=== PATIENT | male | born 1950 | race Caucasian/White ===

== ENCOUNTER 2016-12-10 13:46 | Inpatient (IN) | payer OTHER ==
[2016-12-10] MEDS ORDERED: HYDROcodone/APAP 5-325MG 1 EACH TAB PO PRN (19:02)
[2016-12-10] MEDS ORDERED: LORazepam 2 MG/ML SYRINGE IV PRN (19:03)
[2016-12-10] MEDS ORDERED: IPRATROPIUM-ALBUTEROL 3 ML NEB INHALATION SCH (20:00)
[2016-12-10 21:32] LABS: Glucose,Whole Blood 132 mg/dL (75-99)
[2016-12-10] MEDS: methylPREDNISolone SOD SUCCI 40 MG/ML 1 ML VIAL IV SCH ×2 (21:48→23:24)
[2016-12-10] MEDS: SODIUM CHLORIDE 0.9% 1,000 ML IV SCH (21:48)
[2016-12-10] MEDS: NITROGLYCERIN OINT 1 INCH/GM PACKET TOPICAL SCH ×2 (21:48→23:25)
[2016-12-10] MEDS: METOPROLOL TARTRATE 50 MG TAB PO SCH (21:49)
[2016-12-10] MEDS: ATORVASTATIN 80 MG TAB PO SCH (21:49)
[2016-12-11 06:18] LABS: Glucose,Whole Blood 116 mg/dL (75-99)
[2016-12-11] MEDS: BUDESONIDE 0.5 MG/2 ML NEBU INHALATION SCH ×3 (07:02→20:39)
[2016-12-11] MEDS: NITROGLYCERIN OINT 1 INCH/GM PACKET TOPICAL SCH ×4 (07:03→21:27)
[2016-12-11] MEDS: methylPREDNISolone SOD SUCCI 40 MG/ML 1 ML VIAL IV SCH ×4 (07:03→21:27)
[2016-12-11] MEDS: PANTOPRAZOLE 40 MG TABLET PO SCH (07:05)
[2016-12-11] MEDS: METOPROLOL TARTRATE 50 MG TAB PO SCH ×2 (08:02→21:26)
[2016-12-11] MEDS: NICOTINE 21MG/24HR PATCH TRANSDERM SCH (08:02)
[2016-12-11] MEDS: ASPIRIN 325 MG TAB PO SCH (08:02)
[2016-12-11] MEDS: FUROSEMIDE 20 MG TAB PO SCH (08:53)
--- NOTE | 2016-12-11 09:11 | XR ---
EXAMINATION TYPE: XR chest 2V DATE OF EXAM: 12/11/2016 9:01 AM COMPARISON: NONE HISTORY: Shortness of breath TECHNIQUE: Frontal and lateral views of the chest are obtained. FINDINGS: Scattered senescent parenchymal changes noted. Hyperinflation compatible with COPD. No evidence for infiltrate. No evidence for atelectasis. Heart size is stable. Mediastinal structures are stable and grossly unremarkable. No evidence for hilar prominence. Degenerative changes dorsal spine. IMPRESSION: 1. No evidence for acute pulmonary disease.
--- NOTE | 2016-12-11 11:02 | P.PN ---
Subjective Principal diagnosis: Non-STEMI This is a 66-year-old gentleman who presented to [facility] with a non-ST elevation myocardial infarction. He was seen in consultation there by Dr. Regalado, cardiac catheterization was performed there yesterday. Cardiac catheterization revealed two-vessel coronary artery disease and patient was transferred here, referred for coronary artery bypass grafting surgery. Clonidine level at [facility] went up to 9.4. Echocardiogram with Doppler study was performed there which revealed an ejection fraction of 45-50% with severe hypokinesia in the basal inferior wall region. He was seen and examined this morning, denies any chest pain or difficulty in breathing. He has not yet been evaluated by cardiothoracic surgery. Blood pressure 116/50, heart rate in the 60s, 94% on room air. Left groin soft no evidence of any hematoma. Objective - Vital Signs Vital signs: Vital Signs Temp 97.7 F 12/11/16 08:00 Pulse 83 12/11/16 08:00 Resp 16 12/11/16 08:00 BP 140/83 12/11/16 08:00 Pulse Ox 92 L 12/11/16 08:00 Intake & Output 12/10/16 12/11/16 12/11/16 18:59 06:59 18:59 Intake Total 240 Output Total 500 Balance -260 Weight 93 kg 92.1 kg Intake: Oral 240 Output: Urine 500 Other: Voiding Method Urinal Urinal # Voids 2 - Exam PHYSICAL EXAMINATION: HEENT: [Head is atraumatic, normocephalic. Pupils equal, round. Neck is supple. There is no elevated jugular venous pressure.] HEART EXAMINATION: [Heart S1, S2 normal. No murmur or gallop heard.] CHEST EXAMINATION: Lungs reveal some coarse wheezing bilaterally. ABDOMEN: [ Soft, nontender. Bowel sounds are heard. No organomegaly noted]. EXTREMITIES:[ 2+ peripheral pulses with no evidence of peripheral edema and no calf tenderness noted]. Left groin soft, no evidence of any hematoma. NEUROLOGIC [patient is awake, alert and oriented -3.] . - Labs Labs: Abnormal Lab Results - Last 24 Hours (Table) 12/10/16 12/11/16 Range/Units 21:29 06:17 POC Glucose (mg/dL) 132 H 116 H (75-99) mg/dL Assessment and Plan (1) NSTEMI (non-ST elevated myocardial infarction) Status: Acute (2) S/P cardiac cath Status: Acute (3) COPD (chronic obstructive pulmonary disease) Status: Acute (4) Hyperlipemia Status: Acute Plan: Patient is currently on aspirin, Lipitor 80, Lasix 20 mg daily, metoprolol tartrate 50 mg one tablet by mouth twice a day, nicotine patch, Nitropaste, BUN 723, creatinine 1.1. Potassium 4.6 yesterday. We will add a small dose of RIGOBERTO inhibitor to the patient's medication regime. She will be seen in consultation today by cardiothoracic surgery, will need to undergo coronary artery bypass grafting surgery. We will continue to follow along with you. DNP note has been reviewed, I agree with a documented findings and plan of care. Patient was seen and examined.
[2016-12-11] MEDS ORDERED: MD COMMUNICATION TO PHARMACY 1 EACH MISC PO ONE ×4 (11:49)
--- NOTE | 2016-12-11 12:01 | P.GSCN ---
History of Present Illness Consult date: 12/11/16 Reason for Consult: Coronary artery disease History of present illness: The patient is a 66-year-old male with a long-standing history of tobacco use, who does not see a doctor in a regular basis, who presented to [facility] with chest pain and shortness of breath. He was diagnosed with a non-ST elevation infarction. Cardiac catheterization was performed and revealed multivessel coronary artery disease. He was transferred to [facility] for consideration of coronary artery bypass grafting. At the time my examination, the patient was resting comfortably and denied chest pain or shortness of breath. Review of Systems All systems: negative - Cardiovascular Reports chest pain, Reports dyspnea on exertion - Respiratory Reports cough with sputum Past Medical History Past Medical History: Coronary Artery Disease (CAD), COPD, Hyperlipidemia, Hypertension, Pneumonia Additional Past Medical History / Comment(s): 12-10-16 transfer from [facility], had positive troponins, went for heart cath and transfered here for cardiovascular eval. '"tremors", emphysema, has home 02 2 liters uses as needed History of Any Multi-Drug Resistant Organisms: None Reported Past Surgical History: Heart Catheterization, Hernia Repair, Tonsillectomy Additional Past Surgical History / Comment(s): rt inguinal hernia repair Past Anesthesia/Blood Transfusion Reactions: No Reported Reaction Additional Past Anesthesia/Blood Transfusion Reaction / Comm: stated never had any blood transfusions Past Psychological History: No Psychological Hx Reported Smoking Status: Current every day smoker Past Alcohol Use History: None Reported Past Drug Use History: Marijuana Additional Drug Use History / Comment(s): uses [facility] 3-4 times per week - Past Family History Mother Family Medical History: CVA/TIA Father Additional Family Medical History / Comment(s): aaa repair Medications and Allergies Home Medications Medication Instructions Recorded Confirmed Type No Known Home Medications [No 12/10/16 12/10/16 History Known Home Medications] Allergies Allergy/AdvReac Type Severity Reaction Status Date / Time No Known Allergies Allergy Verified 12/10/16 17:59 Surgical - Exam Vital Signs Temp Pulse Resp BP Pulse Ox 98.1 F 78 16 135/68 92 L 12/10/16 16:56 12/10/16 16:56 12/10/16 16:56 12/10/16 16:56 12/10/16 16:56 - General well developed, well nourished, no distress - Eyes normal ocular movement - Respiratory normal respiratory effort, clear to auscultation - Cardiovascular Rhythm: regular - Abdomen Abdomen: soft, non tender - Integumentary no rash - Psychiatric oriented to time, oriented to person, oriented to place, speech is normal Results - Labs Abnormal Lab Results - Last 24 Hours (Table) 12/10/16 12/11/16 Range/Units 21:29 06:17 POC Glucose (mg/dL) 132 H 116 H (75-99) mg/dL - Imaging Chest x-ray: report reviewed, image reviewed Assessment and Plan (1) Coronary artery disease Status: Acute (2) NSTEMI (non-ST elevated myocardial infarction) Status: Acute Plan: The patient's cardiac catheterization performed at [facility] was personally reviewed. He has a 90% proximal left anterior descending artery stenosis along with a chronically right coronary artery with distal collateralization. A coronary artery bypass is recommended. The risks, benefits, and alternatives to this procedure were discussed with the patient. All of his questions were answered. We will proceed with our standard preoperative workup. The patient has a significant pulmonary history and he was started on steroids by Dr. Bhatia secondary to COPD. We will obtain a full set of pulmonary function tests given his tobacco use, history of pneumonia, COPD, and occasional need for home oxygen therapy. A carotid ultrasound has been performed and preliminary read reveals a completely occluded carotid artery. His echocardiogram formed at [facility] reveals an ejection fraction approximate 40% with mild mitral regurgitation. Of note the basal inferior wall appears to be significantly hypokinetic. We have tentatively scheduled his surgery for TuesdayDecember 14. Time with Patient: Greater than 30
--- NOTE | 2016-12-11 12:29 | CONS ---
DATE OF CONSULTATION: REASON FOR CONSULT: Acute COPD exacerbation, a preop evaluation for coronary artery bypass surgery. Mr. Ben Mendoza is a 66-year-old male well known to me came into the hospital at [facility] with increasing shortness of breath, some chest tightness and pain. Patient has been found to have a diffuse coronary artery disease and RCA and I believe circumflex as well, some collaterals were seen. Due to symptomatology and cardiomyopathy with ejection fraction of 40% to 45%, the patient is being of for bypass surgery. Patient also has a history of severe COPD, emphysema. He has been short of breath, coughing, phlegm; however, with breathing treatments and steroids, feeling much better. He has intermittent cough ( ), which is light yellow in color. Past medical history is significant for degenerative joint disease and osteoarthritis, severe COPD, dyslipidemia and recent finding of significant coronary artery disease involving the left main as well as RCA. History of smoking and nicotine use. PAST SURGICAL HISTORY: Otherwise unremarkable and noncontributory. REVIEW OF SYSTEMS: Otherwise unremarkable and noncontributory. FAMILY HISTORY AND SOCIAL HISTORY: Otherwise unremarkable. Known history significant for smoking and nicotine use about 1 to 2 packs per day for about 35 to 40 years. On examination, blood pressure is 140/83, respiratory rate 16, pulse 83, temperature 97, sating 92%. HEENT EXAMINATION: Otherwise atraumatic, normocephalic. Pharynx is clear without exudate. NECK: Supple without any lymphadenopathy, jugular venous distention or carotid bruit. LUNGS: Bilateral fine inspiratory and expiratory wheezing and rhonchi are present. HEART: Regular rate and rhythm. S1 and S2 audible. ABDOMEN: Soft. No rebound or rigidity. EXTREMITIES: +1 peripheral pulses. NEUROLOGICAL EXAMINATION: Otherwise, awake and alert. Labs reviewed. Medications reviewed as well. Last check of glucose is 116. IMPRESSION: 1. Acute chronic obstructive pulmonary disease exacerbation. 2. Purulent tracheobronchitis. 3. Coronary artery disease. 4. Cardiomyopathy ischemic in nature. PLAN AND RECOMMENDATION: Continue breathing treatments. Continue steroids. Will repeat chest x-ray and also repeat labs. Maintain on current medications for now.
[2016-12-11 13:19] LABS: Basophils # (A) 0.1 k/uL (0-0.2); Basophils % (A) 0 %; CH 31.4; CHCM 33.5; Eosinophils # (A) 0.1 k/uL (0-0.7); Eosinophils % (A) 1 %; HCT 55.7 % (39.0-53.0); HDW 2.38; HGB 17.1 gm/dL (13.0-17.5); Luc # (Auto) 0.03; Luc % (Auto) 0; Lymphocytes # (A) 1.3 k/uL (1.0-4.8); Lymphocytes % (A) 9 %; MCH 28.9 pg (25.0-35.0); MCHC 30.8 g/dL (31.0-37.0); MCV 94.1 fL (80.0-100.0); Mean Platelet Volume 7.7; Monocytes # (A) 0.4 k/uL (0-1.0); Monocytes % (A) 3 %; Neutrophils # (A) 12.5 k/uL (1.3-7.7); Neutrophils % (A) 87 %; RBC 5.92 m/uL (4.30-5.90); RDW 13.1 % (11.5-15.5); WBC 14.4 k/uL (3.8-10.6); WBC (Perox) 13.86
--- NOTE | 2016-12-11 13:21 | US ---
EXAMINATION TYPE: US carotid duplex BILAT DATE OF EXAM: 12/11/2016 11:13 AM COMPARISON: NONE CLINICAL HISTORY: pre op cardiac surgery) . EXAM MEASUREMENTS: RIGHT: Peak Systolic Velocity (PSV) cm/sec ----- Right CCA: 56.6 ----- Right ICA: occluded ----- Right ECA: 97.7 ICA/CCA ratio: occluded RIGHT: End Diastole cm/sec ----- Right CCA: 8.6 ----- Right ICA: occluded ----- Right ECA: 6.5 LEFT: Peak Systolic Velocity (PSV) cm/sec ----- Left CCA: 95.1 ----- Left ICA: 99.5 ----- Left ECA: 104.7 ICA/CCA ratio: 1.0 LEFT: End Diastole cm/sec ----- Left CCA: 23.7 ----- Left ICA: 21.9 ----- Left ECA: 11.5 VERTEBRALS (direction of flow): Right Vertebral: Antegrade Left Vertebral: Antegrade IMPRESSION: Right sided ICA occlusion. Moderate plaque left bulb without elevated velocities. Criteria for Assigning % of Stenosis / Diameter reduction (Estimation based on the indirect measurements of the internal carotid artery velocities (ICA PSV). 1. Normal (no stenosis)=ICA PSV < 125 cm/s: ratio < 2.0: ICA EDV<40 cm/s. 2. Less than 50% stenosis=ICA PSV < 125 cm/s: ratio < 2.0: ICA EDV<40 cm/s. 3. 50 to 69% stenosis=ICA PSV of 125 to 230 cm/s: ration 2.0 ? 4.0: ICA EDV 40-100 cm/s. 4. Greater than 70% stenosis to near occlusion= ICA PSV > 230 cm/s: ratio > 4.0: ICA EDV > 100 cm/s. 5. Near occlusion= ICA PSV velocities may be low or undetectable: variable ratio and ICA EDV. 6. Total occlusion=unable to detect flow.
[2016-12-11 13:27] LABS: ALT 56 U/L (21-72); AST 39 U/L (17-59); Alkaline Phosphatase 85 U/L (38-126); Anion Gap 12 mmol/L; Blood Urea Nitrogen 26 mg/dL (9-20); Calcium 9.6 mg/dL (8.4-10.2); Carbon Dioxide 26 mmol/L (22-30); Chloride 102 mmol/L (98-107); Cholesterol 246 mg/dL (<200); Glucose 128 mg/dL (74-99); HDL Cholesterol 63 mg/dL (40-60); INR 1.1 (<1.1); Non-African American GFR(MDRD) >60 (>60 ml/min/1.73 sqM); Partial Thromboplastin Time 22.9 sec (22.0-30.0); Potassium 5.1 mmol/L (3.5-5.1); Prothrombin Time 11.4 sec (9.0-12.0); Sodium 140 mmol/L (137-145); Total Bilirubin 1.2 mg/dL (0.2-1.3); Total Protein 7.4 g/dL (6.3-8.2); Triglycerides 140 mg/dL (<150)
[2016-12-11 13:41] LABS: Magnesium 2.4 mg/dL (1.6-2.3)
[2016-12-11 14:13] LABS: Hepatitis B Surface Ag Index 0.05
[2016-12-11 14:19] LABS: Hepatitis B Core IgM Index 0.04
[2016-12-11 14:30] LABS: Hepatitis C Virus IgG Index 0.01
[2016-12-11 14:37] LABS: Hepatitis C Virus IgG Ab Negative (Negative)
[2016-12-11] MEDS: IPRATROPIUM-ALBUTEROL 3 ML NEB INHALATION PRN (15:56)
[2016-12-11 16:54] LABS: Glucose,Whole Blood 130 mg/dL (75-99)
[2016-12-11 19:14] LABS: Hemoglobin A1C 5.5 % (4.2-6.1)
[2016-12-11 20:45] LABS: Glucose,Whole Blood 141 mg/dL (75-99)
[2016-12-11 21:22] LABS: Appearance,Urine Clear (Clear); Bilirubin,Urine Negative (Negative); Glucose,Urine (UA) Negative (Negative); Ketones,Urine Negative (Negative); Leukocyte Esterase,Urine Negative (Negative); Mucus,Urine Rare /hpf; Nitrite,Urine Negative (Negative); Particle Count 1324; Protein,Urine 3+ (Negative); RBC,Urine 1 /hpf (0-5); Specific Gravity,Urine 1.018 (1.001-1.035); Squamous Epithelial Cell,Urine <1 /hpf (0-4); UA Billing (MACRO vs. MICRO) MICRO; Urobilinogen,Urine <2.0 mg/dL (<2.0); WBC,Urine <1 /hpf (0-5)
[2016-12-11] MEDS: ATORVASTATIN 80 MG TAB PO SCH (21:26)
[2016-12-11] MEDS: MUPIROCIN 2% OINT 22 GM TUBE NASAL SCH (21:26)
[2016-12-11] MEDS: SODIUM CHLORIDE 0.9% 1,000 ML IV SCH (21:27)
--- NOTE | 2016-12-11 22:23 | HP ---
CHIEF COMPLAINT: A 66-year-old white male with coronary artery disease. HISTORY OF PRESENT ILLNESS: A 66-year-old white male with history of nicotine addiction sent over to the hospital from [facility] after a non-ST elevated myocardial infarction. He is here for bypass grafting after he has 2 significant blockages to his LAD. Carotid ultrasound shows significant right-sided carotid stenosis. REVIEW OF SYSTEMS: NEUROLOGIC: He has a tremor in his right arm. CONSTITUTIONAL: Negative. IMMUNE: Negative. CARDIAC: As mentioned above. He has been having chest pains on and off for the last 2 to 3 months. PULMONARY: Negative. : Negative. VASCULAR: Negative. Past medical history of coronary artery disease, COPD, hypertension, dyslipidemia, pneumonia, heart catheterization, hernia repair, tonsillectomy. SOCIAL HISTORY: A current every day smoker and uses medical marijuana 3 to 4 times a week. FAMILY HISTORY: Mother: CVA, TIA. Father: AAA repair. ALLERGIES: No known drug allergies. Medications at home include none. PHYSICAL EXAM: VITAL SIGNS: Stable, afebrile. CARDIOVASCULAR: S1, S2. NEUROLOGIC: Tremor to the head and tremor to the left arm. VASCULAR: Decreased carotid bruit to the right side. CARDIOVASCULAR: S1 and S2. LUNGS: Transmitted upper airway sounds. Scattered wheeze. NEUROLOGIC: Alert and oriented x3. PSYCHIATRIC: Fair mood and affect. ASSESSMENT: 1. Coronary artery disease. 2. Non-ST elevated myocardial infarction. 3. Essential tremor. 4. Chronic obstructive pulmonary disease. 5. Diastolic congestive heart failure secondary to coronary artery disease and myocardial infarction. Scheduled for surgery on Tuesday for cardiac surgery.
[2016-12-12] MEDS ORDERED: CHLORHEXIDINE GLUCONATE 15 ML CUP MUCOUS MEM ONE (05:00)
[2016-12-12 06:27] LABS: Glucose,Whole Blood 135 mg/dL (75-99)
[2016-12-12 06:30] LABS: Basophils % (A) 0 %; CH 31.2; CHCM 33.5; Eosinophils # (A) 0.1 k/uL (0-0.7); Eosinophils % (A) 1 %; HCT 50.2 % (39.0-53.0); HDW 2.41; HGB 16.1 gm/dL (13.0-17.5); Luc # (Auto) 0.06; Luc % (Auto) 0; Lymphocytes # (A) 1.5 k/uL (1.0-4.8); Lymphocytes % (A) 11 %; MCHC 32.1 g/dL (31.0-37.0); MCV 93.6 fL (80.0-100.0); Mean Platelet Volume 9.2; Monocytes # (A) 0.8 k/uL (0-1.0); Monocytes % (A) 6 %; Neutrophils # (A) 11.3 k/uL (1.3-7.7); Neutrophils % (A) 83 %; RBC 5.36 m/uL (4.30-5.90); WBC 13.7 k/uL (3.8-10.6); WBC (Perox) 14.04
[2016-12-12 06:50] LABS: ALT 60 U/L (21-72); AST 35 U/L (17-59); Alkaline Phosphatase 62 U/L (38-126); Anion Gap 12 mmol/L; Blood Urea Nitrogen 33 mg/dL (9-20); Calcium 8.8 mg/dL (8.4-10.2); Carbon Dioxide 24 mmol/L (22-30); Chloride 105 mmol/L (98-107); Glucose 127 mg/dL (74-99); Non-African American GFR(MDRD) >60 (>60 ml/min/1.73 sqM); Potassium 4.7 mmol/L (3.5-5.1); Sodium 141 mmol/L (137-145); Total Protein 5.9 g/dL (6.3-8.2)
[2016-12-12] MEDS: NITROGLYCERIN OINT 1 INCH/GM PACKET TOPICAL SCH ×4 (06:50→21:01)
[2016-12-12] MEDS: methylPREDNISolone SOD SUCCI 40 MG/ML 1 ML VIAL IV SCH ×4 (06:51→21:01)
[2016-12-12] MEDS: IPRATROPIUM-ALBUTEROL 3 ML NEB INHALATION PRN ×4 (08:11→20:23)
[2016-12-12] MEDS: BUDESONIDE 0.5 MG/2 ML NEBU INHALATION SCH ×2 (08:11→20:23)
[2016-12-12] MEDS: NICOTINE 21MG/24HR PATCH TRANSDERM SCH (08:43)
[2016-12-12] MEDS: PANTOPRAZOLE 40 MG TABLET PO SCH (08:44)
[2016-12-12] MEDS: ASPIRIN 325 MG TAB PO SCH (08:45)
[2016-12-12] MEDS: FUROSEMIDE 20 MG TAB PO SCH (08:45)
[2016-12-12] MEDS: METOPROLOL TARTRATE 50 MG TAB PO SCH ×2 (08:45→21:01)
[2016-12-12] MEDS: MUPIROCIN 2% OINT 22 GM TUBE NASAL SCH ×2 (08:46→21:01)
--- NOTE | 2016-12-12 10:08 | PN ---
DATE OF SERVICE: 64-year-old gentleman that is transferred from [facility] following a cardiac catheterization by Dr. Draper Husam was found to have two-vessel coronary artery disease has evidence of inferior wall myocardial infarction with mild LV dysfunction. He is to undergo bypass surgery on Tuesday. The cardiothoracic surgeon, wants us to do a MICHELLE to rule out significant mitral regurgitation and I am going to do this tomorrow. On exam, he is comfortable at rest. Vital signs are stable. There is no jugular venous distention. Chest exam reveals good air entry bilaterally. Heart exam reveals first and second heart sounds. No gallop. There is a short systolic murmur at the apex. ABDOMEN: Soft. Exam of the extremities did not reveal any edema. Peripheral pulses are palpable. Labs show a hemoglobin of 16.1. Potassium is 4.7. Creatinine is 1. ASSESSMENT: Two-vessel coronary artery disease for bypass surgery. PLAN: Patient is stable, free of chest pain, he is on aspirin, atorvastatin, Lasix metoprolol, nitrates and will undergo a MICHELLE tomorrow morning.
[2016-12-12 12:01] LABS: Glucose,Whole Blood 132 mg/dL (75-99)
[2016-12-12] MEDS: SODIUM CHLORIDE 0.9% 1,000 ML IV SCH ×2 (12:05→21:00)
--- NOTE | 2016-12-12 15:07 | PN ---
Mr. Mendoza is a 66-year-old with significant degree of coronary artery disease, has acute COPD exacerbation as well. Clinically, patient is doing well. Wheezing, cough, congestion has improved. Hemodynamic status is stable. His last set of vitals include blood pressure 130/60, respiratory rate 16, pulse 70, temperature 98, saturation 96%. HEENT: Unremarkable. NECK: Supple. LUNGS: Good air entry bilaterally, fine expiratory rhonchi are present. HEART: Regular rate and rhythm. S1 and S2 audible. ABDOMEN: Soft. No rebound or rigidity. EXTREMITIES: +1 peripheral pulses. NEUROLOGICAL EXAMINATION: Otherwise, awake and alert. His chest x-ray performed 12/11/2016 has been reviewed. No active pulmonary process is seen. His other laboratory data reviewed as well. IMPRESSION: Coronary artery disease, non-ST segment elevation myocardial infarction, severe chronic obstructive pulmonary disease, acute chronic obstructive pulmonary disease exacerbation. The patient is being planned for surgery. Will follow clinical course closely. Continue breathing treatments, deep breathing exercises, incentive spirometry. Can DC Solu-Medrol in the next 24 hours. Will follow.
[2016-12-12 17:09] LABS: Glucose,Whole Blood 140 mg/dL (75-99)
[2016-12-12 20:58] LABS: Glucose,Whole Blood 193 mg/dL (75-99)
[2016-12-12] MEDS: ATORVASTATIN 80 MG TAB PO SCH (21:02)
[2016-12-13 05:41] LABS: Basophils % (A) 0 %; CHCM 33.3; Eosinophils % (A) 0 %; HCT 49.5 % (39.0-53.0); HDW 2.37; HGB 15.9 gm/dL (13.0-17.5); Luc # (Auto) 0.07; Luc % (Auto) 1; Lymphocytes # (A) 1.2 k/uL (1.0-4.8); Lymphocytes % (A) 9 %; MCHC 32.1 g/dL (31.0-37.0); MCV 93.5 fL (80.0-100.0); Mean Platelet Volume 7.9; Monocytes # (A) 0.7 k/uL (0-1.0); Monocytes % (A) 5 %; Neutrophils # (A) 12.1 k/uL (1.3-7.7); Neutrophils % (A) 86 %; RBC 5.29 m/uL (4.30-5.90); WBC 14.2 k/uL (3.8-10.6)
[2016-12-13 05:52] LABS: ALT 60 U/L (21-72); AST 24 U/L (17-59); Alkaline Phosphatase 66 U/L (38-126); Anion Gap 9 mmol/L; Blood Urea Nitrogen 39 mg/dL (9-20); Calcium 8.6 mg/dL (8.4-10.2); Carbon Dioxide 25 mmol/L (22-30); Chloride 105 mmol/L (98-107); Glucose 129 mg/dL (74-99); Non-African American GFR(MDRD) >60 (>60 ml/min/1.73 sqM); Potassium 4.8 mmol/L (3.5-5.1); Sodium 139 mmol/L (137-145); Total Bilirubin 0.7 mg/dL (0.2-1.3); Total Protein 5.8 g/dL (6.3-8.2)
[2016-12-13 06:59] LABS: Glucose,Whole Blood 116 mg/dL (75-99)
--- NOTE | 2016-12-13 07:20 | P.PN ---
Subjective Principal diagnosis: Coronary artery disease, status post recent heart catheterization, awaiting coronary artery bypass grafting. Patient currently sitting up in bed in no apparent distress. Denies pain, shortness of breath. Has no new questions or complaints. Objective - Vital Signs Vital signs: Vital Signs Temp 96.4 F L 12/12/16 08:00 Pulse 73 12/13/16 04:00 Resp 18 12/13/16 04:00 BP 132/78 12/13/16 04:00 Pulse Ox 94 L 12/13/16 04:00 Intake & Output 12/12/16 12/13/16 12/13/16 18:59 06:59 18:59 Intake Total 720 Output Total 1050 Balance -330 Weight 89.8 kg Intake: IV 600 Sodium Chloride 0.9% 1, 600 000 ml @ 50 mls/hr IV . Q20H [facility] Rx#:[id number] Oral 120 Output: Urine 1050 Other: Voiding Method Urinal Urinal # Voids 1 - Constitutional General appearance: Present: cooperative, no acute distress - Respiratory Details: Lung sounds diminished bilaterally with faint expiratory wheezes. Respirations even, nonlabored. Remains on room air. - Cardiovascular Details: S1, S2 present. No murmurs rubs or gallops. Regular rate and rhythm, sinus rhythm on telemetry with occasional PVCs. No peripheral edema present. Palpable radial, DP, PT pulses. - Gastrointestinal Gastrointestinal Comment(s): Abdomen soft, nontender, nondistended. Active bowel sounds 4 quadrants. - Genitourinary Genitourinary Comment(s): Voiding clear, yellow urine per urinal. - Neurologic Neurologic Comment(s): Obvious tremor present. - Musculoskeletal Musculoskeletal Comment(s): Able to ambulate in the hallway unassisted. - Psychiatric Psychiatric: Present: A&O x's 3, appropriate affect, intact judgment & insight - Allied health notes Allied health notes reviewed: nursing - Labs CBC & Chem 7: 12/13/16 05:13 12/13/16 05:13 Labs: Abnormal Lab Results - Last 24 Hours (Table) 12/12/16 12/12/16 12/12/16 Range/Units 12:00 16:37 20:50 WBC (3.8-10.6) k/uL Neutrophils # (1.3-7.7) k/uL BUN (9-20) mg/dL Glucose (74-99) mg/dL POC Glucose (mg/dL) 132 H 140 H 193 H (75-99) mg/dL Total Protein (6.3-8.2) g/dL Albumin (3.5-5.0) g/dL 12/13/16 12/13/16 12/13/16 Range/Units 05:13 05:13 06:25 WBC 14.2 H (3.8-10.6) k/uL Neutrophils # 12.1 H (1.3-7.7) k/uL BUN 39 H (9-20) mg/dL Glucose 129 H (74-99) mg/dL POC Glucose (mg/dL) 116 H (75-99) mg/dL Total Protein 5.8 L (6.3-8.2) g/dL Albumin 3.4 L (3.5-5.0) g/dL Microbiology - Last 24 Hours (Table) 12/11/16 10:25 Nasal Screen MRSA/MSSA ([facility]) - Final Nasopharyngeal Swab 12/11/16 21:08 Urine Culture - Preliminary Urine,Clean Catch - Imaging and Cardiology Chest x-ray: image reviewed Assessment and Plan (1) NSTEMI (non-ST elevated myocardial infarction) Status: Acute (2) Coronary artery disease Status: Acute (3) Hyperlipemia Status: Acute (4) COPD (chronic obstructive pulmonary disease) Status: Acute Plan: 1. Continue aspirin, Lipitor, beta jignesh. 2. MICHELLE planned for today. 3. 5 m walk test done, #1 4.92, #2 5.10, #3 5.58. 4. Will order incentive spirometry, encourage patient use. 5. Continue Solu-Medrol per pulmonary recommendations. 6. Anticipate coronary artery bypass grafting soon, dependent on preoperative testing and physician availability. Time with Patient: Greater than 30
[2016-12-13] MEDS: methylPREDNISolone SOD SUCCI 40 MG/ML 1 ML VIAL IV SCH ×4 (07:46→22:49)
[2016-12-13] MEDS: NICOTINE 21MG/24HR PATCH TRANSDERM SCH (07:47)
[2016-12-13] MEDS: NITROGLYCERIN OINT 1 INCH/GM PACKET TOPICAL SCH ×4 (07:47→22:57)
[2016-12-13] MEDS: MUPIROCIN 2% OINT 22 GM TUBE NASAL SCH ×2 (07:48→22:49)
[2016-12-13] MEDS ORDERED: MIDAZOLAM 2 MG/2 ML VIAL ONE (08:43)
[2016-12-13] MEDS ORDERED: fentaNYL (PF) 50 MCG/ML 2 ML AMP ONE (08:44)
[2016-12-13] MEDS: BENZOCAINE SPRAY 100 APPLIC/CAN MUCOUS MEM ONE ×2 (08:51→09:05)
[2016-12-13] MEDS ORDERED: IV FLUID CONTINUATION 150 ML IV ONE (08:55)
[2016-12-13] MEDS ORDERED: MIDAZOLAM 2 MG/2 ML VIAL IVP ONE (09:07)
--- NOTE | 2016-12-13 09:51 | ECHOT ---
DATE OF SERVICE: CLINICAL INFORMATION: INDICATION: Mitral regurgitation. This is a 66-year-old gentleman with 2-vessel coronary artery disease who is to undergo bypass surgery. Patient, I was told had significant mitral regurgitation during cardiac catheterization due to which Dr. Bhatt, the cardiothoracic surgeon requested me to perform a transesophageal echo. Patient has been explained of risks, benefits, and alternatives, understood and accepted. PROCEDURE NOTE: After obtaining informed consent, transesophageal echocardiogram is performed in the left lateral position using an Omniplane probe. Local and IV sedation were obtained using Xylocaine spray, intravenous Versed. Patient tolerated the procedure well without any obvious immediate complications. FINDINGS: 1. Mitral valve: Mitral valve appears anatomically normal. There is mild central mitral regurgitation noted. 2. Left atrium appears mildly enlarged. 3. Right atrium, right ventricle, left ventricle are within normal limits. 4. Left ventricle has normal size, wall motion and systolic function. 5. Aortic valve is a 3-leaflet valve. There is no evidence of mitral regurgitation. There is mild tricuspid regurgitation. 6. Interatrial septum: There is no evidence of [id number] shunt by color flow Doppler or [id number] shunt by agitated saline contrast study. CONCLUSION: Mild central mitral regurgitation. PLAN: Patient can proceed with bypass surgery and does not need mitral valve repair.
[2016-12-13] MEDS: IPRATROPIUM-ALBUTEROL 3 ML NEB INHALATION PRN ×3 (10:05→19:51)
[2016-12-13] MEDS: BUDESONIDE 0.5 MG/2 ML NEBU INHALATION SCH ×2 (10:05→19:50)
--- NOTE | 2016-12-13 10:33 | PN ---
SUBJECTIVE: A 66-year-old white male admitted with coronary artery disease with positive 2-vessel disease. Scheduled for surgery on Tuesday, currently having no chest pain. No shortness of breath. No lightheadedness, syncope. No nausea, vomiting. Vital signs were reviewed. Pulse is 68 to 76, O2 is 92% on room air. Blood pressure 130s to 160s/70's to 90s. CARDIOVASCULAR: S1, S2. LUNGS: Scattered wheeze. HEMATOLOGIC: Negative Homans. PSYCH: Appears anxious, nervous. Neurologically cranial nerves are intact. ASSESSMENT: 1. Significant coronary artery disease, carotid artery stenosis. 2. Chronic obstructive pulmonary disease exacerbation. 3. Hypertension. 4. Dyslipidemia. 5. Obesity. 6. Ex-smoker. Continue with current therapy. Surgery is scheduled for Tuesday preop evaluations are being undertaken.
[2016-12-13] MEDS: FUROSEMIDE 20 MG TAB PO SCH (12:00)
[2016-12-13 12:11] LABS: Glucose,Whole Blood 129 mg/dL (75-99)
[2016-12-13] MEDS: SODIUM CHLORIDE 0.9% 1,000 ML IV SCH (12:11)
[2016-12-13] MEDS: PANTOPRAZOLE 40 MG TABLET PO SCH (12:11)
[2016-12-13] MEDS: ASPIRIN 325 MG TAB PO SCH (12:12)
[2016-12-13] MEDS: METOPROLOL TARTRATE 50 MG TAB PO SCH ×2 (12:12→22:49)
[2016-12-13] MEDS ORDERED: MD COMMUNICATION TO PHARMACY 1 EACH MISC PO ONE ×2 (14:42)
--- NOTE | 2016-12-13 14:49 | P.PN ---
Subjective 66-year-old being seen by the attending this morning. This been no new events. Patient currently is denying chest pain shortness of breath. Patient is being followed by cardiovascular surgery. Currently waiting on the timing of the coronary artery bypass grafting Objective - Vital Signs Vital signs: Vital Signs Temp 96.9 F L 12/13/16 07:59 Pulse 84 12/13/16 10:25 Resp 16 12/13/16 11:48 BP 130/75 12/13/16 09:20 Pulse Ox 91 L 12/13/16 09:20 Intake & Output 12/12/16 12/13/16 12/13/16 18:59 06:59 18:59 Intake Total 720 311 Output Total 1050 400 Balance -330 -89 Weight 89.8 kg Intake: IV 600 75 Sodium Chloride 0.9% 1, 600 000 ml @ 50 mls/hr IV . Q20H [facility] Rx#:[id number] Oral 120 236 Output: Urine 1050 400 Other: Voiding Method Urinal Urinal Urinal # Voids 1 - Exam Physical exam 66-year-old male appearing in no acute distress Lungs essentially clear sats 91% on room air Heart S1-S2 audible regular Abdomen soft nontender Extremities no edema - Labs CBC & Chem 7: 12/13/16 05:13 12/13/16 05:13 Labs: Abnormal Lab Results - Last 24 Hours (Table) 12/12/16 12/12/16 12/13/16 Range/Units 16:37 20:50 05:13 WBC 14.2 H (3.8-10.6) k/uL Neutrophils # 12.1 H (1.3-7.7) k/uL BUN (9-20) mg/dL Glucose (74-99) mg/dL POC Glucose (mg/dL) 140 H 193 H (75-99) mg/dL Total Protein (6.3-8.2) g/dL Albumin (3.5-5.0) g/dL 12/13/16 12/13/16 12/13/16 Range/Units 05:13 06:25 12:10 WBC (3.8-10.6) k/uL Neutrophils # (1.3-7.7) k/uL BUN 39 H (9-20) mg/dL Glucose 129 H (74-99) mg/dL POC Glucose (mg/dL) 116 H 129 H (75-99) mg/dL Total Protein 5.8 L (6.3-8.2) g/dL Albumin 3.4 L (3.5-5.0) g/dL Microbiology - Last 24 Hours (Table) 12/11/16 21:08 Urine Culture - Final Urine,Clean Catch 12/11/16 10:25 Nasal Screen MRSA/MSSA ([facility]ACHE[facility]) - Final Nasopharyngeal Swab Assessment and Plan Plan: Impression Non-ST elevated SD Status post heart catheterization showing two-vessel coronary artery occlusive disease Hyperlipidemia COPD EF 45-50% with severe hypokinesis in the basal inferior wall per echo Current every day smoker Anxiety disorder nonspecified Plan Continue rectal dictations by cardiology service defer to With the timing of the coronary artery bypass grafting to cardiovascular surgery Repeat the labs in the morning Monitor blood pressure and heart rate adjust antihypertensive meds if indicated Patient's been advised to stop smoking cigarettes The above dictated assessment and findings were discussed with dr mcnamara Impression and the plan of care have been dictated as directed. Jerica Lima nurse practitioner acting as a scribe for dr gonzáles
[2016-12-13 17:09] LABS: Glucose,Whole Blood 147 mg/dL (75-99)
--- NOTE | 2016-12-13 20:42 | PN ---
This patient is a 66-year-old male with a history of severe COPD, emphysema, chronic persistent asthma and chronic asthmatic bronchitis. Patient remains on therapy with breathing treatments and steroids. Respiratory status has improved significantly. His last set of PFTs which were just performed in the hospital are reviewed; severe degree of obstructive defect was seen with significant response to inhaled bronchodilators. Clinically patient is doing well. Cough, congestion and shortness of breath are improved. Patient is being evaluated for bypass surgery early tomorrow. Hemodynamic status is stable. Last set of vitals includes blood pressure 130/75, respiratory rate 16, pulse 78, temperature 97, saturation 93%. HEENT EXAMINATION: Unremarkable. NECK: Supple. LUNGS: Good air entry bilaterally. HEART: Regular rate, rhythm. ABDOMEN: Soft. NEUROLOGICAL EXAMINATION: Otherwise awake and alert. Labs reviewed. Medications reviewed. IMPRESSION AND PLAN: As dictated above. 1. Hus-NP-eihuddz-elevation myocardial infarction. 2. Acute chronic obstructive pulmonary disease exacerbation. 3. Coronary artery disease. 4. Dyslipidemia. 5. Hypertension. PLAN AND RECOMMENDATION: As above. Continue deep breathing exercises, incentive spirometry. Continue IV steroids; however, they can be stopped and observe patient off of steroids in postoperative phase. Will start tapering it down.
[2016-12-13 21:06] LABS: Glucose,Whole Blood 135 mg/dL (75-99)
[2016-12-13] MEDS: ATORVASTATIN 80 MG TAB PO SCH (22:49)
[2016-12-14] MEDS ORDERED: ceFAZolin 1,000 MG in SODIUM CHLORIDE 0.9% IRRIGATIO 1,000 ML IRRIGATION PRN (00:30)
[2016-12-14] MEDS ORDERED: MAGNESIUM SULFATE SYG 4.06 MEQ/ML SYRINGE IV PRN (05:00)
[2016-12-14] MEDS ORDERED: INSULIN REGULAR 100 UNIT in SODIUM CHLORIDE 0.9% 100 ML IV PRN (05:00)
[2016-12-14] MEDS ORDERED: PAPAVERINE 360 MG in SODIUM CHLORIDE 0.9% 90 ML IV PRN (05:00)
[2016-12-14] MEDS ORDERED: ALBUMIN HUMAN 25% 50 ML in EMPTY BAG 1 BAG IVPB ONE ×2 (05:00→06:00)
[2016-12-14] MEDS ORDERED: LACTATED RINGERS 1,000 ML IV PRN (05:00)
[2016-12-14] MEDS ORDERED: HEPARIN SODIUM,PORCINE 5,000 UNIT in SODIUM CHLORIDE 0.9% 500 ML IV PRN (05:00)
[2016-12-14] MEDS ORDERED: PHENYLEPHRINE-0.9% NACL SYG 1 MG/10 ML SYRINGE IV PRN ×4 (05:00)
[2016-12-14] MEDS ORDERED: AMINOCAPROIC ACID 5,000 MG in DEXTROSE 5% IN WATER 50 ML IV PRN ×4 (05:00)
[2016-12-14] MEDS ORDERED: AMINOCAPROIC ACID 250 MG/ML 20 ML VIAL IV PRN (05:00)
[2016-12-14] MEDS ORDERED: DEXTROSE 5% IN WATER 1,000 ML with POTASSIUM CHLORIDE 110 MEQ, MAGNESIUM SULFATE 16 MEQ... IV PRN ×5 (05:00)
[2016-12-14] MEDS ORDERED: PROPOFOL 500 MG in EMPTY BAG 1 BAG IV PRN (05:00)
[2016-12-14] MEDS ORDERED: CALCIUM CHLORIDE 100 MG/ML 10 ML SYRINGE IVP PRN (05:00)
[2016-12-14] MEDS ORDERED: ceFAZolin 2 GM in SODIUM CHLORIDE 0.9% 30 ML IVPB PRN (05:00)
[2016-12-14] MEDS ORDERED: MANNITOL 25% 12.5 GM/50 ML VIAL IV PRN ×2 (05:00)
[2016-12-14] MEDS ORDERED: PROTAMINE SULFATE 10 MG/ML 25 ML VIAL IV PRN (05:00)
[2016-12-14] MEDS ORDERED: SODIUM BICARB 8.4% 50 ML SYR (1 MEQ/ML) IV PRN (05:00)
[2016-12-14] MEDS ORDERED: PHENYLEPHRINE 40 MG in SODIUM CHLORIDE 0.9% 250 ML IV PRN (05:00)
[2016-12-14] MEDS ORDERED: PROTAMINE SULFATE 250 MG in EMPTY BAG 1 BAG IV PRN (05:00)
[2016-12-14] MEDS ORDERED: HEPARIN SODIUM 1,000 UNIT/ML VIAL IV PRN (05:00)
[2016-12-14] MEDS ORDERED: METOPROLOL TARTRATE 12.5 MG TAB PO ONE ×2 (05:00)
[2016-12-14] MEDS ORDERED: NITROGLYCERIN-D5W PMX 25 MG/250 ML BTL IV PRN (05:00)
[2016-12-14] MEDS ORDERED: NOREPINEPHRINE 4 MG in SODIUM CHLORIDE 0.9% 250 ML IV PRN (05:00)
[2016-12-14] MEDS ORDERED: ASPIRIN 325 MG TAB PO ONE ×2 (05:00)
[2016-12-14] MEDS ORDERED: NITROGLYCERIN-D5W PMX 50 MG in DEXTROSE/WATER 1 250ML.BAG IV PRN (05:00)
[2016-12-14] MEDS ORDERED: CLEVIDIPINE BUTYRATE 25 MG in EMPTY BAG 1 BAG IV PRN (05:00)
[2016-12-14] MEDS ORDERED: ALBUMIN HUMAN 25% 50 ML in EMPTY BAG 1 BAG IVPB PRN (05:00)
[2016-12-14] MEDS ORDERED: ALBUMIN HUMAN 5% 500 ML in EMPTY BAG 1 BAG IVPB PRN ×6 (05:00)
[2016-12-14] MEDS ORDERED: ceFAZolin 2,000 MG in SODIUM CHLORIDE 0.9% 30 ML IVPB PRN (05:00)
[2016-12-14] MEDS ORDERED: DEXTROSE 5% IN WATER 1,000 ML with POTASSIUM CHLORIDE 25 MEQ, SODIUM CHLORIDE 4MEQ/ML V... IV PRN ×6 (05:00)
[2016-12-14] MEDS ORDERED: ATORVASTATIN 10 MG TAB PO ONE (05:00)
[2016-12-14] MEDS ORDERED: CHLORHEXIDINE GLUCONATE 15 ML CUP MUCOUS MEM PRN (05:00)
[2016-12-14] MEDS ORDERED: DEXTROSE 5% IN WATER 1,000 ML with POTASSIUM CHLORIDE 110 MEQ, MAGNESIUM SULFATE 16 MEQ... IV SCH ×5 (06:00)
[2016-12-14] MEDS ORDERED: PROTAMINE SULFATE 250 MG in EMPTY BAG 1 BAG IV ONE (06:00)
[2016-12-14] MEDS ORDERED: INSULIN REGULAR 100 UNIT in SODIUM CHLORIDE 0.9% 100 ML IV ONE (06:00)
[2016-12-14] MEDS ORDERED: MANNITOL 25% 12.5 GM/50 ML VIAL IV ONE ×2 (06:00)
[2016-12-14] MEDS ORDERED: CHLORHEXIDINE GLUCONATE 15 ML CUP MUCOUS MEM ONE (06:00)
[2016-12-14] MEDS ORDERED: PAPAVERINE 360 MG in SODIUM CHLORIDE 0.9% 90 ML IV ONE (06:00)
[2016-12-14] MEDS ORDERED: SODIUM BICARB 8.4% 50 ML SYR (1 MEQ/ML) IV ONE (06:00)
[2016-12-14] MEDS ORDERED: ALBUMIN HUMAN 5% 500 ML in EMPTY BAG 1 BAG IVPB ONE ×7 (06:00→16:46)
[2016-12-14] MEDS ORDERED: NITROGLYCERIN-D5W PMX 50 MG in DEXTROSE/WATER 1 250ML.BAG IV ONE (06:00)
[2016-12-14] MEDS ORDERED: PROPOFOL 500 MG in EMPTY BAG 1 BAG IV ONE (06:00)
[2016-12-14] MEDS ORDERED: PHENYLEPHRINE 40 MG in SODIUM CHLORIDE 0.9% 250 ML IV ONE (06:00)
[2016-12-14] MEDS ORDERED: NOREPINEPHRINE 4 MG in SODIUM CHLORIDE 0.9% 250 ML IV ONE (06:00)
[2016-12-14] MEDS ORDERED: PHENYLEPHRINE-0.9% NACL SYG 1 MG/10 ML SYRINGE IV ONE ×4 (06:00)
[2016-12-14] MEDS ORDERED: HEPARIN SODIUM 1,000 UNIT/ML VIAL IV ONE (06:00)
[2016-12-14] MEDS ORDERED: ceFAZolin 1,000 MG in SODIUM CHLORIDE 0.9% 1,000 ML IRRIGATION ONE (06:00)
[2016-12-14] MEDS ORDERED: AMINOCAPROIC ACID 250 MG/ML 20 ML VIAL IV ONE (06:00)
[2016-12-14] MEDS ORDERED: PROTAMINE SULFATE 10 MG/ML 25 ML VIAL IV ONE ×2 (06:00→08:08)
[2016-12-14] MEDS ORDERED: ceFAZolin 2 GM in SODIUM CHLORIDE 0.9% 30 ML IVPB ONE (06:00)
[2016-12-14] MEDS ORDERED: NITROGLYCERIN-D5W PMX 25 MG/250 ML BTL IV ONE (06:00)
[2016-12-14] MEDS ORDERED: MAGNESIUM SULFATE SYG 4.06 MEQ/ML SYRINGE IV ONE (06:00)
[2016-12-14] MEDS ORDERED: CLEVIDIPINE BUTYRATE 25 MG in EMPTY BAG 1 BAG IV ONE (06:00)
[2016-12-14] MEDS ORDERED: CALCIUM CHLORIDE 100 MG/ML 10 ML SYRINGE IVP ONE (06:00)
[2016-12-14] MEDS ORDERED: DEXTROSE 5% IN WATER 1,000 ML with POTASSIUM CHLORIDE 25 MEQ, SODIUM CHLORIDE 4MEQ/ML V... IV SCH ×6 (06:00)
[2016-12-14] MEDS ORDERED: AMINOCAPROIC ACID 5,000 MG in DEXTROSE 5% IN WATER 50 ML IV ONE ×4 (06:00)
[2016-12-14] MEDS ORDERED: ceFAZolin 2,000 MG in SODIUM CHLORIDE 0.9% 30 ML IVPB ONE (06:00)
[2016-12-14] MEDS ORDERED: HEPARIN SODIUM,PORCINE 5,000 UNIT in SODIUM CHLORIDE 0.9% 500 ML IV ONE (06:00)
[2016-12-14] MEDS ORDERED: IV FLUID CONTINUATION 600 ML IV ONE (06:29)
[2016-12-14] MEDS ORDERED: ELECTROLYTE-R (PH 7.4) 1,000 ML IV.SOLN IV ONE (08:08)
[2016-12-14] MEDS ORDERED: HEPARIN SODIUM 1,000 UNIT/ML VIAL ONE (08:08)
[2016-12-14] MEDS ORDERED: HEPARIN SODIUM,PORCINE 10,000 UNIT/ML 1 ML VIAL ONE (08:08)
[2016-12-14] MEDS ORDERED: LIDOCAINE 1% INJ 10MG/ML (20 ML MDV) ONE (08:08)
[2016-12-14] MEDS ORDERED: PROPOFOL 10 MG/ML 20 ML VIAL IV ONE (08:08)
[2016-12-14] MEDS ORDERED: fentaNYL (PF) 50 MCG/ML 50 ML VIAL ONE (08:08)
[2016-12-14] MEDS ORDERED: SODIUM CHLORIDE 0.9% IRRIG 1,000 ML BTL IRRIGATION ONE (08:08)
[2016-12-14] MEDS ORDERED: MAGNESIUM SULFATE 4 MEQ/ML 2 ML VIAL ONE (08:08)
[2016-12-14] MEDS ORDERED: PHENYLEPHRINE-0.9% NACL SYG 1 MG/10 ML SYRINGE ONE (08:08)
[2016-12-14] MEDS ORDERED: HYDROCORTISONE SUCCINATE 100 MG/2 ML VIAL ONE (08:08)
[2016-12-14] MEDS ORDERED: MIDAZOLAM 2 MG/2 ML VIAL ONE (08:08)
[2016-12-14] MEDS ORDERED: fentaNYL (PF) 50 MCG/ML 2 ML AMP ONE (08:08)
[2016-12-14] MEDS ORDERED: CALCIUM CHLORIDE 100 MG/ML 10 ML SYRINGE ONE (08:08)
[2016-12-14] MEDS ORDERED: ePHEDrine 50 MG/ML 1 ML AMP ONE (08:08)
[2016-12-14] MEDS ORDERED: VECURONIUM 10 MG VIAL IV ONE (08:08)
[2016-12-14 08:42] LABS: Glucose,Whole Blood 117 mg/dL (75-99)
[2016-12-14 10:11] LABS: Glucose,Whole Blood 139 mg/dL (75-99)
--- NOTE | 2016-12-14 10:58 | CDI ---
In responding to this query, please exercise your independent professional judgment. The [facility] Coding Staff and Clinical Documentation Specialists appreciate your assistance in clarifying documentation, maintaining compliance with coding guidelines, accurately documenting patients condition and capturing severity of illness. The fact that aquestion is asked does not imply that any particular answer is desired or expected. Communication forms are a method of clarifying documentation and are not made part of the Legal Health Record. Thank you in advance for your clarification. Last Revision, January 2016 Kady Ghosh [address] [place] [address] Documentation Clarification Form Date: 12/14/2016 10:47:00 AM From: Anna Morgan RN, CCDS Admit Date: 12/10/2016 4:45:00 PM Patient Name: Ben Mendoza Visit Number: [id number] Dr. Alex Robertson/ Jerica Lima CNP CHF is documented in the H&P and requires further clarification. History/Risk Factors: CAD, NSTEMI, HTN, COPD Clinical Indicators: 12/11 H&P: "Diastolic congestive heart failure secondary to coronary artery disease and myocardial infarction." VS/Pulse OX: Temp 98.1, HR 78, RR 16, B/P 135/68, Spo2 92% ra BNP: 9050 Echocardiogram Results: 12/11 Cardiology Progress Note: "Echocardiogram with Doppler study was performed there which revealed an ejection fraction of 45-50% with severe hypokinesia in the basal inferior wall region." Chest X Ray: - Treatment: Lasix 20mg PO QD Consults: Cardiology, Pulmonary, Cardiothoracic Surgery In your professional opinion, can you please clarify the acuity and type of CHF if known? Acute Chronic Acute on Chronic AND Systolic Diastolic Systolic and Diastolic Cor Pulmonale (Right Sided HF w/ Pulmonary HTN) Unable to determine Other, please specify If known, please specify if Heart Failure is due to: Hypertension Rheumatic Fever Please document in your progress notes and discharge summary in order to capture severity of illness and risk of mortality. Include clinical findings that support your diagnosis. FYI: Press F11 to launch patient chart. Place X here if this finding has no clinical significance, is not applicable or if you are not able to provide any additional documentation. JANIYA
[2016-12-14 11:48] LABS: Glucose,Whole Blood 248 mg/dL (75-99)
[2016-12-14 12:32] LABS: Glucose,Whole Blood 202 mg/dL (75-99)
[2016-12-14 12:48] LABS: Glucose,Whole Blood 196 mg/dL (75-99)
[2016-12-14 13:31] LABS: Glucose,Whole Blood 207 mg/dL (75-99)
[2016-12-14 14:16] LABS: Glucose,Whole Blood 179 mg/dL (75-99)
[2016-12-14 14:26] LABS: Glucose,Whole Blood 176 mg/dL (75-99)
[2016-12-14] MEDS ORDERED: Potassium Replacement Protocol 1 EACH MISC MISCELLANE PRN (15:08)
[2016-12-14] MEDS ORDERED: CALCIUM GLUCONATE 2,000 MG in SODIUM CHLORIDE 0.9% 100 ML IVPB ONE (15:08)
[2016-12-14] MEDS ORDERED: BENZOCAINE/MENTHOL LOZENG 1 EACH LOZENGE MUCOUS MEM PRN (15:08)
[2016-12-14] MEDS ORDERED: ONDANSETRON 4 MG/2 ML VIAL IVP PRN (15:08)
[2016-12-14] MEDS ORDERED: Magnesium Replacement Protocol 1 EACH MISC MISCELLANE PRN (15:08)
[2016-12-14] MEDS ORDERED: INSULIN REGULAR BOLUS (FROM DRIP BAG) IV PRN (15:08)
[2016-12-14] MEDS ORDERED: Phosphorus Replacement Protoco 1 EACH MISC MISCELLANE PRN (15:08)
[2016-12-14 15:54] LABS: Glucose,Whole Blood 164 mg/dL (75-99)
[2016-12-14 16:11] LABS: Basophils % (A) 0 %; CH 30.9; CHCM 33.2; Eosinophils % (A) 0 %; Immature Gran Flag Slight; Luc # (Auto) 0.04; Luc % (Auto) 0; Lymphocytes # (A) 1.8 k/uL (1.0-4.8); Lymphocytes % (A) 12 %; MCH 31.1 pg (25.0-35.0); MCHC 33.3 g/dL (31.0-37.0); MCV 93.4 fL (80.0-100.0); Mean Platelet Volume 7.8; Monocytes # (A) 0.7 k/uL (0-1.0); Monocytes % (A) 5 %; Neutrophils # (A) 12.4 k/uL (1.3-7.7); Neutrophils % (A) 83 %; RBC 2.89 m/uL (4.30-5.90); RDW 13.2 % (11.5-15.5); WBC 14.9 k/uL (3.8-10.6); WBC (Perox) 16.19
[2016-12-14 16:12] LABS: INR 1.6 (<1.1); Partial Thromboplastin Time 41.8 sec (22.0-30.0); Prothrombin Time 15.4 sec (9.0-12.0)
--- NOTE | 2016-12-14 16:13 | XR ---
EXAMINATION TYPE: XR chest 1V portable DATE OF EXAM: 12/14/2016 4:02 PM Comparison: 12/11/2016 Clinical History: 66-year-old male postoperative Cardiac Surgery Findings: ET tube is in place. NG tube courses below the diaphragm. Mediastinal and left pleural drains are pre sent. Heart remains upper limits of normal in size. Aorta within normal limits. Mild interstitial prominenc e and hyperinflation. Patchy left basilar opacity. Some additional patchy left upper lobe opacity. No appreciable pneumothorax. Right IJ Elcho-Rosie catheter is present. Catheter tip likely in the main pu lmonary outflow tract. Impression: 1. Postoperative changes. For COPD. Correlate for superimposed mild pulmonary vascular congestion. 2. Trace left effusion with patchy left basilar atelectasis.
[2016-12-14 16:16] LABS: Ionized Calcium 4.2 mg/dL (4.5-5.3)
[2016-12-14] MEDS: IPRATROPIUM-ALBUTEROL 3 ML NEB INHALATION SCH ×3 (16:20→23:11)
[2016-12-14 16:24] LABS: ALT 31 U/L (21-72); AST 27 U/L (17-59); Alkaline Phosphatase 23 U/L (38-126); Anion Gap 8 mmol/L; Blood Urea Nitrogen 27 mg/dL (9-20); Carbon Dioxide 26 mmol/L (22-30); Chloride 104 mmol/L (98-107); Glucose 132 mg/dL (74-99); Magnesium 2.6 mg/dL (1.6-2.3); Non-African American GFR(MDRD) >60 (>60 ml/min/1.73 sqM); Potassium 4.5 mmol/L (3.5-5.1); Sodium 138 mmol/L (137-145); Total Bilirubin 0.8 mg/dL (0.2-1.3); Total Protein 3.8 g/dL (6.3-8.2)
[2016-12-14] MEDS: ceFAZolin 2 GM in SODIUM CHLORIDE 0.9% 100 ML IVPB SCH (16:31)
[2016-12-14 16:35] LABS: Calcium 6.5 mg/dL (8.4-10.2)
[2016-12-14 16:37] LABS: Manual Review Performed
[2016-12-14] MEDS: LACTATED RINGERS 1,000 ML IV SCH (16:42)
[2016-12-14 16:53] LABS: Glucose,Whole Blood 136 mg/dL (75-99)
[2016-12-14] MEDS ORDERED: INSULIN REGULAR 100 UNIT in SODIUM CHLORIDE 0.9% 100 ML IV SCH (17:00)
[2016-12-14] MEDS: MILRINONE-D5W PMX 20 MG in DEXTROSE/WATER 1 100ML.BAG IV SCH ×2 (17:19→21:48)
[2016-12-14] MEDS: NOREPINEPHRINE 4 MG in SODIUM CHLORIDE 0.9% 250 ML IV SCH (17:19)
[2016-12-14 17:29] LABS: Glucose,Whole Blood 135 mg/dL (75-99)
[2016-12-14 17:33] LABS: ABG Base Excess 0.7 mmol/L; ABG HCO3 26 mmol/L (21-25); ABG PCO2 50 mmHg (35-45); ABG PH 7.34 (7.35-7.45); ABG PO2 350 mmHg (83-108); ABG TCO2 27 mmol/L (19-24)
[2016-12-14] MEDS: MORPHINE SULFATE 2 MG/ML SYRINGE IVP PRN ×2 (18:09→22:46)
[2016-12-14 18:26] LABS: Glucose,Whole Blood 132 mg/dL (75-99)
[2016-12-14] MEDS: PROPOFOL 500 MG in EMPTY BAG 1 BAG IV SCH ×2 (18:27→22:01)
[2016-12-14] MEDS: ACETAMINOPHEN IV (For NPO) 1,000 MG in EMPTY BAG 1 BAG IVPB SCH (18:28)
[2016-12-14] MEDS: CLEVIDIPINE BUTYRATE 25 MG in EMPTY BAG 1 BAG IV SCH (18:28)
[2016-12-14 18:41] LABS: CHCM 33.2; HCT 27.5 % (39.0-53.0); HDW 2.47; HGB 8.7 gm/dL (13.0-17.5); Immature Gran Flag Moderate; MCH 29.7 pg (25.0-35.0); MCHC 31.7 g/dL (31.0-37.0); MCV 93.7 fL (80.0-100.0); Mean Platelet Volume 8.4; RBC 2.93 m/uL (4.30-5.90); RDW 13.1 % (11.5-15.5); WBC (Perox) 16.49
[2016-12-14 19:19] LABS: Add Differential Manual Differential
[2016-12-14 19:21] LABS: Manual Review Performed; Nucleated Red Blood Cells 0 /100 WBC (0-0); Total Cells Counted 100
[2016-12-14 19:25] LABS: Glucose,Whole Blood 127 mg/dL (75-99)
[2016-12-14 19:30] LABS: ABG Base Excess 1.2 mmol/L; ABG HCO3 26 mmol/L (21-25); ABG PCO2 47 mmHg (35-45); ABG PH 7.37 (7.35-7.45); ABG PO2 86 mmHg (83-108); ABG TCO2 27 mmol/L (19-24)
[2016-12-14] MEDS: BUDESONIDE 0.5 MG/2 ML NEBU INHALATION SCH (19:38)
[2016-12-14] MEDS ORDERED: methylPREDNISolone SOD SUCCI 125 MG/2 ML VIAL IV STA (19:46)
--- NOTE | 2016-12-14 19:47 | PN ---
ICU time: 30 minutes. CHIEF COMPLAINT: A 66-year-old white male status post triple bypass ( ) bypass surgery. Discussed case with Dr. Bhatt who did the surgery. He is currently postop. Vital signs are reviewed. LUNGS: Transmitted upper airway sounds, ventilator sounds. HEART: S1, S2. ABDOMEN: Soft. Medications at this time: 1. Heparin. 2. Plavix. 3. Metoprolol. He was given a bronchoscopy in the surgical suite due to COPD, severe pulmonary fibrosis, ( ) postop is 50. He will be monitored on the ventilator and weaned off the ventilator as tolerated. ICU time 30 minutes. Discussed case with cardiac surgeon. A.m. labs and ( ) were reviewed.
[2016-12-14] MEDS ORDERED: PROPOFOL 50 ML IV ONE ×2 (20:01→23:42)
[2016-12-14 20:09] LABS: Glucose,Whole Blood 125 mg/dL (75-99)
[2016-12-14 21:15] LABS: Glucose,Whole Blood 128 mg/dL (75-99)
[2016-12-14 22:06] LABS: Glucose,Whole Blood 136 mg/dL (75-99)
[2016-12-14 22:30] LABS: Ionized Calcium 4.6 mg/dL (4.5-5.3)
[2016-12-14] MEDS: MUPIROCIN 2% OINT 22 GM TUBE NASAL SCH (22:30)
[2016-12-14 22:34] LABS: INR 1.3 (<1.1); Prothrombin Time 13.1 sec (9.0-12.0)
[2016-12-14 22:39] LABS: Basophils % (A) 0 %; CH 30.8; CHCM 33.4; Eosinophils % (A) 0 %; HCT 27.9 % (39.0-53.0); HDW 2.46; HGB 9.2 gm/dL (13.0-17.5); Luc # (Auto) 0.07; Luc % (Auto) 1; Lymphocytes # (A) 1.3 k/uL (1.0-4.8); Lymphocytes % (A) 10 %; MCH 30.6 pg (25.0-35.0); MCV 92.5 fL (80.0-100.0); Mean Platelet Volume 7.8; Monocytes # (A) 0.9 k/uL (0-1.0); Monocytes % (A) 7 %; Neutrophils # (A) 10.6 k/uL (1.3-7.7); Neutrophils % (A) 82 %; RBC 3.02 m/uL (4.30-5.90); RDW 13.1 % (11.5-15.5); WBC 12.9 k/uL (3.8-10.6)
[2016-12-14 22:44] LABS: Anion Gap 7 mmol/L; Blood Urea Nitrogen 25 mg/dL (9-20); Calcium 7.4 mg/dL (8.4-10.2); Carbon Dioxide 28 mmol/L (22-30); Chloride 103 mmol/L (98-107); Glucose 124 mg/dL (74-99); Magnesium 2.5 mg/dL (1.6-2.3); Non-African American GFR(MDRD) >60 (>60 ml/min/1.73 sqM); Phosphorous 3.1 mg/dL (2.5-4.5); Potassium 4.2 mmol/L (3.5-5.1); Sodium 138 mmol/L (137-145)
[2016-12-14 23:18] LABS: Glucose,Whole Blood 136 mg/dL (75-99)
[2016-12-15] MEDS ORDERED: methylPREDNISolone SOD SUCCI 125 MG/2 ML VIAL IV ONE
[2016-12-15 00:15] LABS: Glucose,Whole Blood 144 mg/dL (75-99)
[2016-12-15] MEDS: ACETAMINOPHEN IV (For NPO) 1,000 MG in EMPTY BAG 1 BAG IVPB SCH ×4 (00:22→20:31)
[2016-12-15] MEDS: ceFAZolin 2 GM in SODIUM CHLORIDE 0.9% 100 ML IVPB SCH ×2 (00:22→09:04)
[2016-12-15] MEDS: HEPARIN SODIUM,PORCINE 5,000 UNIT/ML 1 ML VIAL SQ SCH ×4 (00:27→23:24)
[2016-12-15] MEDS: NOREPINEPHRINE 4 MG in SODIUM CHLORIDE 0.9% 250 ML IV SCH (00:34)
[2016-12-15 01:12] LABS: Glucose,Whole Blood 141 mg/dL (75-99)
[2016-12-15] MEDS: PROPOFOL 500 MG in EMPTY BAG 1 BAG IV SCH ×4 (02:33→07:02)
[2016-12-15 03:06] LABS: Glucose,Whole Blood 140 mg/dL (75-99)
[2016-12-15] MEDS: FUROSEMIDE 20 MG TAB PO SCH (03:18)
[2016-12-15] MEDS: SODIUM CHLORIDE 0.9% 1,000 ML IV SCH ×2 (03:18)
[2016-12-15] MEDS: MUPIROCIN 2% OINT 22 GM TUBE NASAL SCH ×3 (03:18→20:23)
[2016-12-15] MEDS: NICOTINE 21MG/24HR PATCH TRANSDERM SCH (03:18)
[2016-12-15] MEDS: methylPREDNISolone SOD SUCCI 40 MG/ML 1 ML VIAL IV SCH (03:19)
[2016-12-15] MEDS: PANTOPRAZOLE 40 MG TABLET PO SCH (03:19)
[2016-12-15] MEDS: NITROGLYCERIN OINT 1 INCH/GM PACKET TOPICAL SCH (03:19)
[2016-12-15] MEDS: IPRATROPIUM-ALBUTEROL 3 ML NEB INHALATION SCH ×6 (03:21→23:14)
[2016-12-15] MEDS ORDERED: PROPOFOL 50 ML IV ONE ×2 (03:26→05:17)
[2016-12-15] MEDS: MORPHINE SULFATE 2 MG/ML SYRINGE IVP PRN ×2 (04:23→07:03)
[2016-12-15 04:45] LABS: Glucose,Whole Blood 133 mg/dL (75-99)
[2016-12-15 04:53] LABS: Basophils % (A) 0 %; CH 31.1; CHCM 33.9; Eosinophils % (A) 0 %; HDW 2.51; Luc # (Auto) 0.04; Luc % (Auto) 0; Lymphocytes # (A) 0.8 k/uL (1.0-4.8); Lymphocytes % (A) 7 %; MCH 30.8 pg (25.0-35.0); MCHC 33.4 g/dL (31.0-37.0); MCV 92.1 fL (80.0-100.0); Mean Platelet Volume 9.3; Monocytes # (A) 0.5 k/uL (0-1.0); Monocytes % (A) 4 %; Neutrophils # (A) 10.5 k/uL (1.3-7.7); Neutrophils % (A) 89 %; RBC 2.93 m/uL (4.30-5.90); RDW 13.1 % (11.5-15.5); WBC 11.8 k/uL (3.8-10.6); WBC (Perox) 12.49
[2016-12-15 04:56] LABS: Ionized Calcium 4.6 mg/dL (4.5-5.3)
[2016-12-15 05:07] LABS: ALT 36 U/L (21-72); AST 34 U/L (17-59); Alkaline Phosphatase 30 U/L (38-126); Anion Gap 7 mmol/L; Blood Urea Nitrogen 23 mg/dL (9-20); Calcium 7.6 mg/dL (8.4-10.2); Carbon Dioxide 27 mmol/L (22-30); Chloride 105 mmol/L (98-107); Glucose 131 mg/dL (74-99); Magnesium 2.5 mg/dL (1.6-2.3); Non-African American GFR(MDRD) >60 (>60 ml/min/1.73 sqM); Potassium 4.4 mmol/L (3.5-5.1); Sodium 139 mmol/L (137-145); Total Bilirubin 0.9 mg/dL (0.2-1.3); Total Protein 4.2 g/dL (6.3-8.2)
[2016-12-15 05:11] LABS: ABG Base Excess 1.7 mmol/L; ABG HCO3 26 mmol/L (21-25); ABG PCO2 41 mmHg (35-45); ABG PH 7.41 (7.35-7.45); ABG PO2 75 mmHg (83-108); ABG TCO2 27 mmol/L (19-24)
--- NOTE | 2016-12-15 05:23 | PCN ---
DATE OF PROCEDURE: OPERATIVE REPORT: Bronchoscopy and airway examination with suctioning of secretions. PREOPERATIVE DIAGNOSIS: Possible thermal injury to airways/right mainstem bronchus. POSTOPERATIVE DIAGNOSIS: No evidence of any thermal injury based on bronchoscopy findings. BRIEF NOTE: I was called on a stat basis to the OR by Dr. Dias to evaluate the patient via bronchoscopy and evaluate for possible thermal injury that was suspected to the right mainstem bronchus. Patient was already on mechanical ventilation, and the chest was opened. I went ahead and evaluated via bronchoscopy, applied an adapter to the endotracheal tube, and the bronchoscope was advanced through the adapter down to the distal area of the trachea. Maxine was evaluated and noted to be normal. Examination of the right upper lobe, right mainstem, right middle lobe and right lower lobe showed no evidence of any thermal injury or any injury to the mucosa. The same was done on the left side including the left upper lobe, lingula, and left lower lobe, and there was no evidence of any thermal injury. However, there were some purulent secretions, which were suctioned uneventfully. The procedure was well tolerated, and no evidence of any immediate complications. Discussed the findings with the surgeon on the case.
[2016-12-15 06:08] LABS: Glucose,Whole Blood 136 mg/dL (75-99)
--- NOTE | 2016-12-15 06:58 | OP ---
DATE OF SERVICE: SURGEON: Arun Bhatt MD AMPHIBIAN CREWMEMBER: 1. FAB Garcia. 2. Trevor Davey. PREOPERATIVE DIAGNOSIS: Coronary artery disease. POSTOPERATIVE DIAGNOSIS: Coronary artery disease. OPERATION: 1. Coronary artery bypass grafting x3 vessels (left internal mammary artery to left anterior descending artery, saphenous vein graft to diagonal artery, saphenous vein graft to distal right coronary artery). 2. Endoscopic vein harvest left greater saphenous vein. 3. Epiaortic ultrasound. 4. Transesophageal echocardiogram. 5. Fiberoptic bronchoscopy performed by Dr. Null. ANESTHESIA: General. ESTIMATED BLOOD LOSS: 500 mL. SPECIMENS REMOVED: COMPLICATIONS: None. OPERATIVE FINDINGS: INDICATION: The patient is a 66-year-old male with a past medical history significant for COPD, longtime tobacco use, hyperlipidemia, hypertension, and pneumonia who presented to [facility] with chest pain and shortness of breath. He was diagnosed with a non-ST elevation myocardial infarction. A cardiac catheterization was performed, which revealed multivessel coronary artery disease. He was transferred to [facility] for consideration of coronary artery bypass. The risks, benefits, and alternatives to this procedure were discussed with the patient. All his questions were answered. Consent was obtained. Of note, due to the patient's long-standing history of COPD and tobacco use, we did have the pulmonologists see him preoperatively. He was started on steroids to help with his respiratory status. FINDINGS: The left internal mammary artery was a good conduit with brisk flow. The saphenous vein was a good conduit. The LAD measured 1.5 mm. The diagonal artery measured 1.3 mm. The right coronary artery measured 1.3 mm. PROCEDURE IN DETAIL: The patient was taken to the operating room and placed supine on the operating room table. After induction of general anesthesia, he was prepped and draped in the usual sterile fashion. Preoperative transesophageal echocardiogram confirmed an ejection fraction of approximately 40%. There was mild central regurgitation. He did have some inferior wall hypokinesis. A median sternotomy was performed. The left internal mammary artery was harvested in the standard fashion taking care to clip all branches. Intravenous heparin was administered and the vessel was transected distally revealing brisk flow. Of note, the left lung was severely emphysematous and did contain multiple blebs. There were also dense adhesions noted between the lung and the chest wall. These adhesions were tediously taken down using a combination of sharp dissection and electrocautery. It was worse in the apex. There was a defect in the lung parenchyma noted after dissection in the apex of the lung. Simultaneously the left greater saphenous vein was harvested using endoscopic technique. The branches were tied. The vein was a good conduit. A pericardial cradle was created. Epiaortic ultrasound was performed. There was some plaque noted anteriorly at the take off of the innominate artery. There was no plaque noted more proximally or on the posterior wall. The aorta itself was soft to touch other than this island of calcium. At this point, I was notified by Anesthesia that the patient's pCO2 was rising. Despite increasing the patient's respiratory rate and tidal volume, he was acidotic with a pH of 7.1 and a pCO2 of 70. His oxygen saturation, however, was still good. For this reason we asked Dr. Null to come to the operating room and perform an intraoperative fiber-optic bronchoscopy. This was performed without difficulty. Please refer to Dr. Null's separate note for his interpretation of this procedure. Grossly, there was no evidence of mass, ulceration, or inflammation in the trachea, left main stem bronchus, left upper lobe bronchus, or left lower lobe bronchus, In addition, the right mainstem bronchus, right upper lobe bronchus, bronchus intermedius, and right lower lobe bronchus were all free of disease. He did note some thick sputum. Since there were no significant abnormalities noted, I elected to continue with the operation. An arterial cannula was then placed in the distal ascending aorta in a soft spot free of plaque as confirmed by the epiaortic ultrasound. A venous cannula was then placed through the right atrial appendage and directed into the IVC. Antegrade and retrograde catheters were placed as well. The patient was placed on cardiopulmonary bypass with good decompression of the heart. The aortic crossclamp was applied. Cold blood potassium cardioplegia was delivered both in antegrade and retrograde fashion to achieve arrest of the heart. Of note, cardioplegia was delivered every 15 to 20 minutes while the patient remained under crossclamp. We began by inspecting the inferior wall. The branches, which were collateralized from the left system corresponding to the posterior descending artery appeared to be too small for bypass. The distal right coronary artery was dissected free. It contained thickened soft plaque. An arteriotomy was created. There was a lumen noted. This vessel appeared to be approximately 1.3 mm. Using saphenous vein in a reverse fashion, an end-to-side anastomosis was created. This was performed using running 7-0 Prolene suture. The graft was hemostatic and had great flow. Next the diagonal artery was identified. A small arteriotomy was created. This vessel accepted a 1 mm probe both proximally and distally. Using saphenous vein in a reverse fashion, an end-to-side anastomosis was created. This was performed using running 7-0 Prolene suture. The graft was hemostatic and had great flow. Finally, the left anterior descending artery was dissected free. An arteriotomy was created. This vessel accepted a 1.5 mm probe both proximally and distally. Using the left internal mammary artery, an end-to-side anastomosis was created. This was performed using a running 8-0 Prolene suture. The graft was hemostatic. The mammary pedicle was tacked down to the anterior surface of the heart using Prolene sutures. It should be noted that once the patient was placed on cardiopulmonary bypass, his acidosis and hypercapnia resolved. Attention was then turned to the proximal anastomoses. These were performed to the ascending aorta in an end-to-side fashion using running 6-0 Prolene sutures. One liter of warm blood was delivered in a retrograde fashion. Both lidocaine and magnesium were administered as well. The aortic crossclamp was removed. The grafts were de-aired in the standard fashion. Temporary atrial and ventricular pacer wires were placed and brought through the skin. The retrograde catheter was removed. The patient was then weaned off cardiopulmonary bypass. He without difficulty. Follow-up transesophageal echocardiogram confirmed improvement in the left ventricular function and no change in his mitral regurgitation. Protamine was administered. There were no adverse effects. The antegrade catheter was removed. The venous catheter cannula was removed. The arterial catheter was then removed. All surgical sites were inspected and appeared to be hemostatic. Reinforcement sutures were placed as needed. The mediastinum was copiously irrigated with warm saline solution. Again hemostasis was assured. Soft tissue was reapproximated over the ascending aorta as well as over the apex of the heart. A straight 32 Bangladeshi chest tube was placed direct into the left pleural space. At this point I did note that there was continued leaking from the apex of the left lung. A few chromic sutures were placed to help control the leak as well as the application of ProGEL. Two straight 32 Bangladeshi chest tubes were then placed and dkrected into the mediastinum. These were all secured to the skin using sutures. The sternum was then reapproximated using stainless steel wires in a [id number] fashion. The remainder of the wound was closed in layers. A sterile dressing was applied. The patient appeared to tolerate the procedure well. There were no immediate complications. He returned to the ICU in critical but stable condition. JANIYA
[2016-12-15 07:09] LABS: Glucose,Whole Blood 146 mg/dL (75-99)
--- NOTE | 2016-12-15 07:46 | XR ---
EXAMINATION TYPE: XR chest 1V portable DATE OF EXAM: 12/15/2016 6:50 AM Comparison: 12/14/2016 Clinical History: 66-year-old male Post Operative Cardiac Surgery Findings: ET tube remains satisfactory. Distal aspect of the NG tube not as well-seen on the current exam. Righ t IJ Vanzant-Rosie catheter with tip at the main pulmonary outflow tract. Mediastinal drains are present. Left chest tube also remains in place. No appreciable pneumothorax. The heart remains mildly enlarged with diffuse interstitial prominence. Some more confluent patchy le ft upper lobe opacity. Some of the left basilar opacity shows some improvement. Impression: 1. Postoperative changes. Left chest tube without appreciable pneumothorax. 2. Suspect mild pulmonary vascular congestion. Probably some confluent interstitial edema in the lef t upper lobe, similar to prior, with slight improving aeration at the left base.
[2016-12-15 08:11] LABS: Glucose,Whole Blood 133 mg/dL (75-99)
[2016-12-15 09:02] LABS: Glucose,Whole Blood 125 mg/dL (75-99)
[2016-12-15] MEDS: MILRINONE-D5W PMX 20 MG in DEXTROSE/WATER 1 100ML.BAG IV SCH ×2 (09:04→10:00)
[2016-12-15] MEDS: METOPROLOL TARTRATE 12.5 MG TAB PO SCH ×2 (09:07→20:21)
[2016-12-15] MEDS: CLOPIDOGREL 75 MG TAB PO SCH (09:12)
[2016-12-15] MEDS: ASPIRIN 325 MG TAB PO SCH (09:13)
[2016-12-15 10:08] LABS: Glucose,Whole Blood 122 mg/dL (75-99)
--- NOTE | 2016-12-15 10:10 | P.PN ---
<LizzieAlex Aguiar - Last Filed: 12/15/16 09:51> Progress Note - Text CV Surgery Nursing POD: #1, coronary artery bypass grafts 3 utilizing a left internal mammary artery to left anterior descending artery and reverse saphenous vein grafts to the diagonal branch and distal right coronary artery. Endoscopic vein harvesting of the left greater saphenous vein. Epi-aortic ultrasonography. Transesophageal echocardiogram. A fiberoptic bronchoscopy performed by Dr. Smith Patient is sedated on the ventilator. Vital Signs: Afebrile, T-max is 98.3F Vital Signs - 24 hr 12/14/16 12/14/16 12/14/16 12:31 15:08 15:39 Temperature 96.6 F L Pulse Rate 77 79 Respiratory 11 L Rate Blood Pressure 99/60 O2 Sat by Pulse 99 100 Oximetry 12/14/16 12/14/16 12/14/16 15:40 15:50 16:00 Temperature Pulse Rate 79 79 79 Respiratory 11 L Rate Blood Pressure O2 Sat by Pulse 100 100 Oximetry 12/14/16 12/14/16 12/14/16 16:08 16:10 16:20 Temperature 96.6 F L Pulse Rate 80 79 Respiratory Rate Blood Pressure O2 Sat by Pulse 100 100 Oximetry 12/14/16 12/14/16 12/14/16 16:30 16:40 16:50 Temperature Pulse Rate 80 78 79 Respiratory Rate Blood Pressure 116/72 93/60 O2 Sat by Pulse 100 100 100 Oximetry 12/14/16 12/14/16 12/14/16 17:00 17:10 17:20 Temperature 96.8 F L Pulse Rate 79 79 79 Respiratory Rate Blood Pressure 93/60 93/60 93/60 O2 Sat by Pulse 100 100 99 Oximetry 12/14/16 12/14/16 12/14/16 17:30 17:40 17:50 Temperature Pulse Rate 79 78 79 Respiratory Rate Blood Pressure 93/60 93/60 93/60 O2 Sat by Pulse 99 100 100 Oximetry 12/14/16 12/14/16 12/14/16 18:00 18:10 18:20 Temperature 97.3 F L Pulse Rate 77 78 77 Respiratory Rate Blood Pressure 93/60 93/60 93/60 O2 Sat by Pulse 100 97 98 Oximetry 12/14/16 12/14/16 12/14/16 18:30 18:40 18:50 Temperature Pulse Rate 79 80 79 Respiratory Rate Blood Pressure 93/60 93/60 O2 Sat by Pulse 100 100 100 Oximetry 12/14/16 12/14/16 12/14/16 19:00 19:15 19:17 Temperature 98.3 F Pulse Rate 80 65 79 Respiratory 20 Rate Blood Pressure O2 Sat by Pulse 100 100 Oximetry 12/14/16 12/14/16 12/14/16 19:28 19:30 19:45 Temperature Pulse Rate 80 80 84 Respiratory 20 20 Rate Blood Pressure 87/55 O2 Sat by Pulse 100 100 Oximetry 12/14/16 12/14/16 12/14/16 20:00 20:15 20:30 Temperature Pulse Rate 80 84 79 Respiratory 20 20 20 Rate Blood Pressure O2 Sat by Pulse 100 100 100 Oximetry 12/14/16 12/14/16 12/14/16 20:45 21:00 21:15 Temperature Pulse Rate 80 79 86 Respiratory 20 20 20 Rate Blood Pressure O2 Sat by Pulse 99 99 99 Oximetry 12/14/16 12/14/16 12/14/16 21:30 21:45 22:00 Temperature Pulse Rate 82 79 83 Respiratory 20 20 20 Rate Blood Pressure O2 Sat by Pulse 98 98 98 Oximetry 12/14/16 12/14/16 12/14/16 22:15 22:30 22:45 Temperature Pulse Rate 85 80 85 Respiratory 20 20 20 Rate Blood Pressure O2 Sat by Pulse 99 96 98 Oximetry 12/14/16 12/14/16 12/14/16 23:00 23:02 23:13 Temperature Pulse Rate 84 84 84 Respiratory 20 Rate Blood Pressure O2 Sat by Pulse 98 Oximetry 12/14/16 12/14/16 12/14/16 23:15 23:30 23:45 Temperature Pulse Rate 83 86 86 Respiratory 20 20 20 Rate Blood Pressure O2 Sat by Pulse 99 97 98 Oximetry 12/15/16 12/15/16 12/15/16 00:00 00:15 00:30 Temperature Pulse Rate 87 86 83 Respiratory 20 20 20 Rate Blood Pressure O2 Sat by Pulse 96 97 97 Oximetry 12/15/16 12/15/16 12/15/16 01:00 01:30 02:00 Temperature Pulse Rate 86 85 84 Respiratory 20 20 20 Rate Blood Pressure 92/60 107/60 O2 Sat by Pulse 97 97 96 Oximetry 12/15/16 12/15/16 12/15/16 02:30 03:00 03:12 Temperature Pulse Rate 84 84 83 Respiratory 20 20 Rate Blood Pressure 110/62 O2 Sat by Pulse 96 97 Oximetry 12/15/16 12/15/16 12/15/16 03:23 03:30 04:00 Temperature Pulse Rate 86 79 92 Respiratory 20 20 Rate Blood Pressure 114/66 O2 Sat by Pulse 97 96 Oximetry 12/15/16 12/15/16 12/15/16 04:30 05:00 05:30 Temperature Pulse Rate 95 95 90 Respiratory 20 20 20 Rate Blood Pressure 112/60 112/60 O2 Sat by Pulse 97 96 96 Oximetry 12/15/16 12/15/16 12/15/16 06:00 06:30 07:00 Temperature Pulse Rate 87 93 90 Respiratory 20 20 20 Rate Blood Pressure 110/61 117/64 O2 Sat by Pulse 95 96 97 Oximetry 12/15/16 12/15/16 12/15/16 07:30 08:00 08:30 Temperature Pulse Rate 83 82 87 Respiratory Rate Blood Pressure 117/64 86/54 86/54 O2 Sat by Pulse 95 97 96 Oximetry 12/15/16 08:49 Temperature Pulse Rate 90 Respiratory Rate Blood Pressure O2 Sat by Pulse Oximetry ABP, PAP, CO, CI - Last 8 Hours Arterial Blood Pressure 122/65 Arterial Blood Pressure 104/54 Arterial Blood Pressure 118/57 Arterial Blood Pressure 119/61 Arterial Blood Pressure 121/66 Arterial Blood Pressure 118/58 Arterial Blood Pressure 106/55 Arterial Blood Pressure 119/62 Arterial Blood Pressure 116/63 Arterial Blood Pressure 102/59 Arterial Blood Pressure 118/62 Arterial Blood Pressure 112/61 Arterial Blood Pressure 100/59 Arterial Blood Pressure 108/60 Pulmonary Artery Pressure 54/26 Pulmonary Artery Pressure 44/21 Pulmonary Artery Pressure 44/21 Pulmonary Artery Pressure 47/23 Pulmonary Artery Pressure 55/30 Pulmonary Artery Pressure 43/22 Pulmonary Artery Pressure 42/20 Pulmonary Artery Pressure 49/24 Pulmonary Artery Pressure 49/20 Pulmonary Artery Pressure 47/25 Pulmonary Artery Pressure 38/23 Pulmonary Artery Pressure 43/26 Pulmonary Artery Pressure 41/24 Pulmonary Artery Pressure 44/27 Cardiac Output 5.7 Cardiac Output 5.7 Cardiac Output 6.9 Cardiac Output 5.9 Cardiac Output 5.9 Cardiac Output 7.1 Cardiac Output 7.1 Cardiac Output 7.1 Cardiac Output 5.5 Cardiac Output 5.5 Cardiac Output 5.5 Cardiac Output 5.4 Cardiac Output 5.4 Cardiac Output 5.4 Cardiac Index 2.7 Cardiac Index 2.8 Cardiac Index 2.8 Cardiac Index 3.4 Cardiac Index 3.4 Labs: Short CBC 12/14/16 12/14/16 12/14/16 Range/Units 15:53 18:15 22:00 WBC 14.9 H 16.0 H 12.9 H (3.8-10.6) k/uL Hgb 9.0 L D 8.7 L 9.2 L (13.0-17.5) gm/dL Hct 27.0 L 27.5 L 27.9 L (39.0-53.0) % Plt Count 81 L D 93 L 93 L (150-450) k/uL Neutrophils # 12.4 H 10.6 H (1.3-7.7) k/uL 12/15/16 Range/Units 04:40 WBC 11.8 H (3.8-10.6) k/uL Hgb 9.0 L (13.0-17.5) gm/dL Hct 27.0 L (39.0-53.0) % Plt Count 81 L (150-450) k/uL Neutrophils # 10.5 H (1.3-7.7) k/uL BMP 12/14/16 12/14/16 12/15/16 15:53 22:00 04:40 Sodium 138 138 139 Potassium 4.5 4.2 4.4 Chloride 104 103 105 Carbon Dioxide 26 28 27 BUN 27 H 25 H 23 H Creatinine 0.83 0.81 0.90 Glucose 132 H 124 H 131 H Calcium 6.5 L* 7.4 L 7.6 L Liver Function 12/14/16 12/15/16 Range/Units 15:53 04:40 Total Bilirubin 0.8 0.9 (0.2-1.3) mg/dL AST 27 34 (17-59) U/L ALT 31 36 (21-72) U/L Alkaline Phosphatase 23 L 30 L (38-126) U/L Albumin 2.4 L 2.8 L (3.5-5.0) g/dL IV Fluids: Propofol drip at 50 mcg/kg/m Norepinephrine drip at 2 mcg/m Nitroglycerin at 5 mcg/m Primacor at 0.2 mcg/kg/m Insulin drip at 2 units per hour Cardiac output: 7.2 L/m Cardiac index: 3.4 L/m Pulmonary artery pressures: 44/27 CVP: 13 mmHg Lungs: Patient is mechanically ventilated, vent settings are as follows assist- control at 20, tidal volume is 600, FiO2 is 50%, PEEP of 5. Breath sounds are diminished throughout with slight expiratory wheeze. Chest x-ray shows possible pulmonary vascular congestion, some interstitial edema of the left upper lobe with slight improvement at the left base O2 sat: 96% Heart: S1S2, regular rate and rhythm, bedside telemetry shows a normal sinus rhythm Sternum stable, chest incision clean with silverlon dressing clean and dry. Abdomen: Soft, hypoactive bowel sounds present in all 4 quadrants. CBGs: 127-146 mg/dL U/O: Adequate in Estevez catheter to dependent drainage. Chest Tubes: Mediastinal chest tube with large air leak, chest tubes with minimal drainage Intake & Output 12/13/16 12/14/16 12/15/16 12/16/16 06:59 06:59 06:59 06:59 Intake Total 361 662 1599.530 254.903 Output Total 1050 1775 3914 255 Balance -330 -1264 -1129.470 -0.097 Weight 89.8 kg 89.9 kg 103.8 kg Plan: Status post CABG postop day #1 Wean from vent as tolerated per pulmonary Wean drips as tolerated Continue gentle diuresis <Arun Bhatt - Last Filed: 12/15/16 14:21> Progress Note - Text The patient was seen and examined. He remains intubated this morning. His last pCO2 was 41. I spoke with Dr. Bhatia who has started the patient on steroids. We will place him on CPAP and see how he responds. If he is not ready for extubation, then we will try again tomorrow. He continues to have a significant air leak in the chest tubes. I suspect this will improve once he is no longer receiving positive pressure ventilation. There is no obvious pneumothorax on chest x-ray. I will continue to wean his milrinone. He is on 2 g of Levophed. His labs were reviewed and his hemoglobin is stable. His platelet count is 81,000. We will monitor it for now. He is making good urine and his creatinine is normal. He is currently on sedation but when it is weaned down he opens his eyes, follows commands, and moves all extremities.
[2016-12-15 10:58] LABS: Glucose,Whole Blood 117 mg/dL (75-99)
[2016-12-15 11:52] LABS: Glucose,Whole Blood 116 mg/dL (75-99)
[2016-12-15] MEDS ORDERED: MORPHINE SULFATE 4 MG/ML SYRINGE IVP PRN (11:55)
[2016-12-15] MEDS ORDERED: MORPHINE SULFATE 4 MG/ML SYRINGE ONE (11:57)
--- NOTE | 2016-12-15 12:08 | P.VSCSTY ---
Greater Saphenous Vein Mapping This is bilateral lower extremity greater saphenous vein mapping. Date of service 12/11/2016 Vein quality and ultrasound appearance somewhat large proximally but otherwise normal. Vein size groin right 9.4 x 8.8 groin left 6.4 x 5.4 High thigh right 6.1 x 6.3 high thigh left 5.2 x 5.1 Mid thigh right 5.7 x 5.1 mid thigh left 4.7 x 4.3 Above-knee right 5.1 x 5.0 above- knee left 5.6 x 4.5 Below knee right 4.7 x 5.0 below-knee left 4.7 x 3.8 Mid calf right 3.6 x 2.9 mid calf left 2.1 by 1.9 Ankle right 4.4 x 3.1 ankle left 2.4 x 2.4 Impression usable greater saphenous vein bilaterally. Very proximal is a bit large and very distal on the left is a bit small..
--- NOTE | 2016-12-15 12:09 | P.ARTDOP ---
Arterial Doppler LOWER EXTREMITY ARTERIAL DOPPLER: DATE OF SERVICE: 12/11/2016 Reason for study: Pre-CABG. Doppler waveforms: Multiphasic bilaterally throughout. Pulse volume recording: Progressive blunting as one goes distally. Pressure gradients: Above the low thigh.. Ankle-brachial indices: 0.73 on the right and 0.80 on the left. Toe pressures: 77 on the right, 99 on the left Impression: Mild to moderate bilateral SFA disease.
[2016-12-15 14:19] LABS: Glucose,Whole Blood 102 mg/dL (75-99)
[2016-12-15] MEDS: methylPREDNISolone SOD SUCCI 125 MG/2 ML VIAL IV SCH ×2 (14:19→20:22)
[2016-12-15] MEDS: LACTATED RINGERS 1,000 ML IV SCH (14:20)
[2016-12-15] MEDS: CLEVIDIPINE BUTYRATE 25 MG in EMPTY BAG 1 BAG IV SCH (14:23)
--- NOTE | 2016-12-15 14:29 | PN ---
66-year-old gentleman who underwent bypass surgery yesterday. Today, he is postop day one. Still intubated on vent, on a small dose of Levophed. Remains in sinus rhythm. Has history of severe COPD Current medications include: 1. Plavix. 2. Aspirin. 3. Small dose of metoprolol. 4. Lipitor. On exam, comfortable at rest. Heart rate is 86, blood pressure 116/70, respiratory rate is 18. Chest exam reveals diminished air entry at the bases. Heart exam reveals first and second heart sounds. No gallop. No murmur. ABDOMEN: Soft. Exam of the extremities did not reveal edema. Peripheral pulses are felt. Labs show a hemoglobin of 9. Sugars been in the ( ) labs have been reviewed. ASSESSMENT: 1. Coronary artery disease, status post coronary artery bypass grafting postop day one. 2. Respiratory failure. PLAN: Patient will continue with current supportive care. Hopefully can be weaned and extubated later this afternoon or tomorrow.
[2016-12-15] MEDS ORDERED: BISACODYL 10 MG SUPP RECTAL PRN (14:54)
[2016-12-15] MEDS ORDERED: MAGNESIUM HYDROXIDE 2,400 MG/10 ML CUP PO PRN (14:54)
[2016-12-15 16:03] LABS: Glucose,Whole Blood 106 mg/dL (75-99)
--- NOTE | 2016-12-15 16:04 | PN ---
CRITICAL CARE NOTE DATE OF SERVICE: 12/15/2016 Mr. Ben Mendoza is seen, evaluated, evaluated, examined postoperatively in the ICU. This patient is status post CABG . Patient developed problems associated with severe hypercapnic respiratory failure perioperatively; however, he likely appeared to be related to severe bronchospasm. Patient was subsequently evaluated in the ICU. Plan is to maintain patient on respirator and not to wean. Care plan discussed with surgical services as well as the primary services as well. For details, please refer to the operative note by Dr. Bhatt. The have been patient underwent CABG x3 and REID to LAD and SVG to diagonal and right coronary artery. Care plan also discussed with Dr. Null who happened to do bronchoscopy as per request of Dr. Bhatt. Findings were reviewed as well. No evidence of thermal injury was seen. Vitals include blood pressure of 110/61, respiratory rate 20, pulse 93, temperature 98, saturation 95% to 96, PA pressure 55/30, CVP is 15. HEENT EXAMINATION: Otherwise unremarkable. NECK: Supple. LUNGS: Bilateral coarse breath sounds and wheezing are present. Very tight. HEART: Regular rate, rhythm. ABDOMEN: Soft. NEUROLOGICAL EXAMINATION: Sedated with propofol but gets anxious and agitated. The patient does require extra morphine on top of propofol as well. Chest x-ray reviewed as well. The ET tube is stable. Small left-sided pleural effusion ET tube is stable. NG tube is stable. Stable mediastinal pleural drain. LUNGS: Bilateral coarse breath sounds, expiratory rhonchi are present. ABDOMEN: Soft. EXTREMITIES: +1 peripheral pulses. NEUROLOGICAL EXAMINATION: Sedated. IMPRESSION: 1. Acute on chronic hypoxic respiratory failure unrelated to bypass surgery, likely due to severe chronic obstructive pulmonary disease and bronchospasm. Will maintain patient on respirator. Patient has been given two doses of IV steroids, would titrate oxygen down. Continue supportive care. The patient will require extra pain medications in addition to propofol drip. 2. Coronary artery disease status post coronary artery bypass grafting x3. 3. Severe chronic obstructive pulmonary disease, emphysema. 4. Hypertension. 5. Dyslipidemia. Plan and recommendation: As above. Critical care time spent 35 minutes.
--- NOTE | 2016-12-15 16:28 | PN ---
This patient is a 66-year-old male, seen, evaluated, examined in the ICU. Clinically patient is slightly better from a respiratory standpoint; less wheezing has been audible. Patient remains very anxious, agitated, on 60 to 80 mcg of propofol, requiring extra morphine. I have ordered to give 4 mg of morphine as needed. His respiratory status is slightly better with better oxygenation. Labs, x-rays and blood gases have been reviewed as well. His last set of vitals includes blood pressure 110/60, respiratory rate 16 to 18, heart rate 20, temperature 98. His vent settings have been reviewed as well. Currently FiO2 has been down to 50%. Saturations are 96%. PA pressure 50/24. I&O are reviewed. HEENT: Otherwise unremarkable. NECK: Supple. Neck veins are prominent. No bruit is present. LUNGS: Bilateral coarse breath sounds with fine expiratory rhonchi. HEART: Regular rate, rhythm. S1, S2 audible. ABDOMEN: Soft. No rebound or rigidity. EXTREMITIES: Plus one peripheral pulses. NEUROLOGICAL EXAMINATION: Sedated with propofol; extra getting morphine and Ativan as well. The arterial blood gases on current vent settings include pH of 7.4, pCO2 of 41, which is down from 47, pO2 of 75. Sodium is 139, potassium 4.4. BUN 23, creatinine 0.9. LFTs are within normal limits. CBC shows white cell count has improved to 11,800. Chest x-ray performed earlier today was reviewed and compared with the prior x-ray. ET tube and OG tube are stable. Small bilateral pleural effusion is present. Basal atelectasis which was seen on the left side has improved as well. No significant pneumothorax is seen. Right-sided IJ and [place]-Rosie catheter have been stable. IMPRESSION: 1. Acute hypoxic hypercapnic respiratory failure related to severe bronchospasm and baseline severe chronic obstructive pulmonary disease, unrelated to coronary artery disease and postoperative status related to that. 2. [id number]-elevated myocardial infarction and acute myocardial infarction related to severe coronary artery disease, status post coronary artery bypass graft x3. 3. Chronic obstructive pulmonary disease with acute exacerbation. PLAN AND RECOMMENDATION: As above. Continue supportive care. Continue breathing treatments. IV steroids as needed. Will send sputum for Gram stain and culture if he needs additional antibiotics. Will follow. Critical care time spent 35 minutes.
[2016-12-15 17:17] LABS: ABG HCO3 27 mmol/L (21-25); ABG PCO2 37 mmHg (35-45); ABG PH 7.48 (7.35-7.45); ABG PO2 90 mmHg (83-108); ABG TCO2 28 mmol/L (19-24)
[2016-12-15 17:18] LABS: ABG Base Excess 3.8 mmol/L
--- NOTE | 2016-12-15 17:45 | PN ---
SUBJECTIVE: A 66-year-old white male admitted to the ICU, status post CABG surgery x3. He is on the ventilator at this time, is satting 96%, FiO2 50%, set to venous pressure 10, ( ) pressure 3/24 to give a blood pressure of 110/56, blood pressure 101/67. Blood pressure mean is 78. Pulse rate is 70s to 90s. He is resting comfortably. CARDIOVASCULAR: S1, S2. LUNGS: Scattered rhonchi x4. Abdomen is distended. HEMATOLOGIC: Negative Homans'. Medications are reviewed, includin. DuoNeb updrafts q.i.d. 2. He is on aspirin. 3. He is on clevidipine 25 mg IV solution every day. 4. He is on Plavix 75 daily. 5. Heparin subcu. 6. Insulin drip. 7. Lactated Ringer 50. 8. IV Solu-Medrol 80 every 6 hours for his bad COPD, just trying to wean off the vent, status post CABG surgery. 9. Lopressor 12.5 b.i.d. for beta jignesh postop heart surgery. 10. Norepinephrine, at this time 2 mcg/min. 11. Propofol 65 mcg per kg per minute. Patient continues to slowly improve from a medical standpoint. Hopefully he will be able to wean off the ventilator soon. He is status post CABG x3, severe COPD. Labs are all reviewed. Cardiac output 7.2 L per minute. Cardiac index 3.8 L per minute. CVP 13 mmHg. Chest x-ray shows some interstitial edema, left upper lobe. O2 sat 99%. Sternum is clean and incision dry. ABDOMEN: Soft. Chest tubes in the mediastinum. Chest tube with a large air leak. Chest is with minimal drainage. Ins and outs balance reviewed. Titrated as soon as possible off the ventilator. He is on 2 mcg of ( ) as mentioned above. Hemoglobin is stable. Platelet count is 81,000. Continue to monitor. ICU TIME: 30 minutes.
[2016-12-15 18:03] LABS: Glucose,Whole Blood 111 mg/dL (75-99)
[2016-12-15 20:12] LABS: Glucose,Whole Blood 120 mg/dL (75-99)
[2016-12-15] MEDS: ATORVASTATIN 40 MG TAB PO SCH (20:22)
[2016-12-15] MEDS: SENNOSIDES-DOCUSATE SODIUM 1 EACH TAB PO SCH (20:40)
[2016-12-15 21:18] LABS: Glucose,Whole Blood 125 mg/dL (75-99)
[2016-12-15 22:06] LABS: Glucose,Whole Blood 113 mg/dL (75-99)
[2016-12-15] MEDS ORDERED: ALPRAZolam 0.25 MG TAB PO STA (22:11)
[2016-12-15] MEDS ORDERED: METOPROLOL TARTRATE 12.5 MG TAB PO STA (22:11)
[2016-12-15 23:34] LABS: Glucose,Whole Blood 124 mg/dL (75-99)
[2016-12-16] MEDS: HYDROcodone/APAP 5-325MG 1 EACH TAB PO PRN ×4 (00:31→13:19)
[2016-12-16 00:44] LABS: Glucose,Whole Blood 127 mg/dL (75-99)
[2016-12-16 02:03] LABS: Glucose,Whole Blood 134 mg/dL (75-99)
[2016-12-16] MEDS: methylPREDNISolone SOD SUCCI 125 MG/2 ML VIAL IV SCH (02:44)
[2016-12-16 03:48] LABS: Glucose,Whole Blood 119 mg/dL (75-99)
[2016-12-16] MEDS: IPRATROPIUM-ALBUTEROL 3 ML NEB INHALATION SCH ×6 (03:52→20:12)
[2016-12-16 05:01] LABS: Ionized Calcium 4.9 mg/dL (4.5-5.3)
[2016-12-16 05:04] LABS: CH 30.7; CHCM 33.1; HCT 29.5 % (39.0-53.0); HDW 2.48; HGB 9.8 gm/dL (13.0-17.5); MCH 30.9 pg (25.0-35.0); MCHC 33.3 g/dL (31.0-37.0); MCV 92.9 fL (80.0-100.0); Mean Platelet Volume 8.5; RBC 3.17 m/uL (4.30-5.90); RDW 12.9 % (11.5-15.5); WBC 9.9 k/uL (3.8-10.6); WBC (Perox) 10.57
[2016-12-16 05:06] LABS: INR 1.2 (<1.1); Prothrombin Time 12.1 sec (9.0-12.0)
[2016-12-16 05:10] LABS: ALT 37 U/L (21-72); AST 34 U/L (17-59); Alkaline Phosphatase 39 U/L (38-126); Anion Gap 7 mmol/L; Blood Urea Nitrogen 22 mg/dL (9-20); Calcium 8.2 mg/dL (8.4-10.2); Carbon Dioxide 29 mmol/L (22-30); Chloride 105 mmol/L (98-107); Glucose 115 mg/dL (74-99); Magnesium 2.7 mg/dL (1.6-2.3); Non-African American GFR(MDRD) >60 (>60 ml/min/1.73 sqM); Potassium 4.1 mmol/L (3.5-5.1); Sodium 141 mmol/L (137-145); Total Protein 4.9 g/dL (6.3-8.2)
[2016-12-16 05:50] LABS: Add Differential Manual Differential
[2016-12-16 05:54] LABS: Manual Review Performed; Nucleated Red Blood Cells 0 /100 WBC (0-0); Total Cells Counted 100
[2016-12-16 06:12] LABS: Glucose,Whole Blood 140 mg/dL (75-99)
--- NOTE | 2016-12-16 07:14 | XR ---
EXAMINATION TYPE: XR chest 1V portable DATE OF EXAM: 12/16/2016 6:40 AM CLINICAL HISTORY: Difficulty breathing progress study. Post open cardiac surgery progress study. TECHNIQUE: Single AP portable upright view of the chest is obtained. COMPARISON: Chest x-ray from one day earlier FINDINGS: There is interval extubation with removal of endotracheal and orogastric tubes. A right in ternal jugular [place]-Rosie catheter is stable in appearance. There is stable left-sided chest tube. The re is stable mediastinal drainage catheter. Post CABG changes with mediastinal clips and sternal wire s is redemonstrated. There is mild cardiomegaly with atherosclerotic and ectatic thoracic aorta. There is chronic senescen t change with patchy bibasilar atelectasis and/or infiltrate now identified. No large pleural effusio n or pneumothorax is seen bilaterally. Osseous structures are intact. Possible subcutaneous emphysema left supraclavicular region is noted versus artifact from overlying blanket or clothing material. IMPRESSION: Interval extubation, there is chronic parenchymal change and mild cardiomegaly with devel oping patchy bibasilar atelectasis and/or infiltrate noted.
[2016-12-16] MEDS: METOPROLOL TARTRATE 25 MG TAB PO SCH ×2 (07:25→19:18)
[2016-12-16] MEDS ORDERED: ALPRAZolam 0.25 MG TAB PO PRN (07:35)
[2016-12-16 08:11] LABS: Glucose,Whole Blood 161 mg/dL (75-99)
[2016-12-16] MEDS: HEPARIN SODIUM,PORCINE 5,000 UNIT/ML 1 ML VIAL SQ SCH (08:54)
[2016-12-16] MEDS: PANTOPRAZOLE 40 MG/10 ML VIAL IVP SCH (08:54)
[2016-12-16] MEDS: CLOPIDOGREL 75 MG TAB PO SCH (08:54)
[2016-12-16] MEDS: ASPIRIN 325 MG TAB PO SCH (08:54)
[2016-12-16] MEDS: INSULIN LISPRO (humaLOG) 300 UNIT/3 ML VIAL SQ SCH ×4 (08:55→21:47)
[2016-12-16] MEDS ORDERED: FUROSEMIDE 10 MG/ML 2 ML VIAL IV ONE (08:56)
[2016-12-16] MEDS: ATORVASTATIN 40 MG TAB PO SCH (09:27)
[2016-12-16] MEDS: MUPIROCIN 2% OINT 22 GM TUBE NASAL SCH ×2 (09:28→19:18)
[2016-12-16] MEDS: FONDAPARINUX 2.5 MG/0.5 ML SYRINGE SQ SCH (09:28)
--- NOTE | 2016-12-16 10:26 | P.PN ---
Subjective Principal diagnosis: Coronary artery disease. POD #2 coronary artery bypass grafting 3 vessels, left internal mammary artery to the left anterior descending artery, saphenous vein graft to diagonal artery, saphenous vein graft to distal right coronary artery. Endoscopic vein harvest left greater saphenous vein. Epi-aortic ultrasound. Transesophageal echocardiogram. Fiberoptic bronchoscopy performed by Dr. Null. Patient currently sitting in chair, highly anxious related to his breathing. States he feel he can't catch his breath despite normal oxygen saturation and respiratory rate. Objective - Vital Signs Vital signs: Vital Signs Temp 98.3 F 12/14/16 19:00 Pulse 89 12/16/16 06:00 Resp 12 12/16/16 06:00 BP 132/68 12/16/16 06:00 Pulse Ox 95 12/16/16 06:00 Intake & Output 12/15/16 12/16/16 12/16/16 18:59 06:59 18:59 Intake Total 1052.708 695.475 Output Total 1175 1325 Balance -122.292 -629.525 Weight 103.9 kg Intake: IV 970.6 590.8 Tessy 90 CO/CI 230 40 Lactated Ringers 1,000 ml 600 540 @ 50 mls/hr IV .Q20H [facility] Rx#:[id number] Milrinone-D5w Pmx 20 mg 50.6 10.8 In Dextrose/Water 1 100ml .bag @ Per Protocol IV . Q0M [facility] Rx#:[id number] Intake, IV Titration 82.108 104.675 Amount Insulin Regular 100 unit 1.869 28.791 In Sodium Chloride 0.9% 100 ml @ Per Protocol IV .Q0M [facility] Rx#:[id number] Milrinone-D5w Pmx 20 mg 5.805 75.884 In Dextrose/Water 1 100ml .bag @ 0.1 MCG/KG/MIN 3. 11 mls/hr IV .Q24H [facility] Rx #:[id number] Norepinephrine 4 mg In 27.686 Sodium Chloride 0.9% 250 ml @ Titrate IV .Q0M [facility] Rx#:[id number] Propofol 500 mg In Empty 46.748 Bag 1 bag @ Titrate IV . Q0M [facility] Rx#:[id number] Output: Chest Tube Drainage 410 395 Chest Tube Left 0 195 Chest Tube Right Pleural/ 410 200 Mediastinal Urine 765 930 Other: Voiding Method Indwelling Catheter Indwelling Catheter ABP, PAP, CO, CI - Last Documented Arterial Blood Pressure 108/63 Pulmonary Artery Pressure 38/15 Cardiac Output 7.8 Cardiac Index 3.7 - Constitutional General appearance: Present: cooperative, mild distress - Respiratory Details: Lungs sounds diminished with expiratory wheezes present bilaterally. Respirations even, nonlabored. Currently on 5 L nasal cannula. Only able to achieve 500 mL on incentive spirometry. Effective cough. Mediastinal chest tube to -20 cm continuous wall suction, draining serosanguineous fluid, 220 mL in the last 8 hours, 610 mL in the last 24 hours, air leak present. Left pleural chest tube to -27 m continuous wall suction, draining serosanguineous fluid, 155 mL in the last 8 hours, 155 mL total, air leak present. Trace amount of SQ air felt over the left neck. - Cardiovascular Details: S1, S2 present. Sinus rhythm on telemetry with occasional PVCs. Chest stable. Pacemaker wires present but capped. Heart hugger in place with patient demonstrating effective use. Trace bilateral lower extremity edema present. Palpable radial, DP, PT pulses bilaterally. Teds, SCDs present. - Gastrointestinal Gastrointestinal Comment(s): Abdomen soft, nontender, nondistended. Hypoactive bowel sounds present. Patient denies flatus. Tolerating diet. - Genitourinary Genitourinary Comment(s): Estevez present draining clear, yellow urine. Urine output 50-75 mL per hour. - Integumentary Integumentary Comment(s): Anterior chest wall incision covered with dry intact silver dressing. Left EVH site well approximated. - Musculoskeletal Musculoskeletal Comment(s): Up to chair with assist 2. - Psychiatric Psychiatric Comment(s): Very anxious. Psychiatric: Present: A&O x's 3 - Allied health notes Allied health notes reviewed: RT - Labs CBC & Chem 7: 12/16/16 04:32 12/16/16 04:32 Labs: Abnormal Lab Results - Last 24 Hours (Table) 12/15/16 12/15/16 12/15/16 Range/Units 08:08 09:00 10:06 RBC (4.30-5.90) m/uL Hgb (13.0-17.5) gm/dL Hct (39.0-53.0) % Plt Count (150-450) k/uL Neutrophils # (Manual) (1.3-7.7) k/uL Lymphocytes # (Manual) (1.0-4.8) k/uL PT (9.0-12.0) sec ABG pH (7.35-7.45) ABG HCO3 (21-25) mmol/L ABG Total CO2 (19-24) mmol/L ABG O2 Saturation (94-97) % BUN (9-20) mg/dL Glucose (74-99) mg/dL POC Glucose (mg/dL) 133 H 125 H 122 H (75-99) mg/dL Calcium (8.4-10.2) mg/dL Magnesium (1.6-2.3) mg/dL Total Protein (6.3-8.2) g/dL Albumin (3.5-5.0) g/dL 12/15/16 12/15/16 12/15/16 Range/Units 10:56 11:50 14:06 RBC (4.30-5.90) m/uL Hgb (13.0-17.5) gm/dL Hct (39.0-53.0) % Plt Count (150-450) k/uL Neutrophils # (Manual) (1.3-7.7) k/uL Lymphocytes # (Manual) (1.0-4.8) k/uL PT (9.0-12.0) sec ABG pH (7.35-7.45) ABG HCO3 (21-25) mmol/L ABG Total CO2 (19-24) mmol/L ABG O2 Saturation (94-97) % BUN (9-20) mg/dL Glucose (74-99) mg/dL POC Glucose (mg/dL) 117 H 116 H 102 H (75-99) mg/dL Calcium (8.4-10.2) mg/dL Magnesium (1.6-2.3) mg/dL Total Protein (6.3-8.2) g/dL Albumin (3.5-5.0) g/dL 12/15/16 12/15/16 12/15/16 Range/Units 16:00 16:38 18:01 RBC (4.30-5.90) m/uL Hgb (13.0-17.5) gm/dL Hct (39.0-53.0) % Plt Count (150-450) k/uL Neutrophils # (Manual) (1.3-7.7) k/uL Lymphocytes # (Manual) (1.0-4.8) k/uL PT (9.0-12.0) sec ABG pH 7.48 H (7.35-7.45) ABG HCO3 27 H (21-25) mmol/L ABG Total CO2 28 H (19-24) mmol/L ABG O2 Saturation 98.0 H (94-97) % BUN (9-20) mg/dL Glucose (74-99) mg/dL POC Glucose (mg/dL) 106 H 111 H (75-99) mg/dL Calcium (8.4-10.2) mg/dL Magnesium (1.6-2.3) mg/dL Total Protein (6.3-8.2) g/dL Albumin (3.5-5.0) g/dL 12/15/16 12/15/16 12/15/16 Range/Units 20:09 21:16 22:04 RBC (4.30-5.90) m/uL Hgb (13.0-17.5) gm/dL Hct (39.0-53.0) % Plt Count (150-450) k/uL Neutrophils # (Manual) (1.3-7.7) k/uL Lymphocytes # (Manual) (1.0-4.8) k/uL PT (9.0-12.0) sec ABG pH (7.35-7.45) ABG HCO3 (21-25) mmol/L ABG Total CO2 (19-24) mmol/L ABG O2 Saturation (94-97) % BUN (9-20) mg/dL Glucose (74-99) mg/dL POC Glucose (mg/dL) 120 H 125 H 113 H (75-99) mg/dL Calcium (8.4-10.2) mg/dL Magnesium (1.6-2.3) mg/dL Total Protein (6.3-8.2) g/dL Albumin (3.5-5.0) g/dL 12/15/16 12/16/16 12/16/16 Range/Units 23:32 00:42 02:00 RBC (4.30-5.90) m/uL Hgb (13.0-17.5) gm/dL Hct (39.0-53.0) % Plt Count (150-450) k/uL Neutrophils # (Manual) (1.3-7.7) k/uL Lymphocytes # (Manual) (1.0-4.8) k/uL PT (9.0-12.0) sec ABG pH (7.35-7.45) ABG HCO3 (21-25) mmol/L ABG Total CO2 (19-24) mmol/L ABG O2 Saturation (94-97) % BUN (9-20) mg/dL Glucose (74-99) mg/dL POC Glucose (mg/dL) 124 H 127 H 134 H (75-99) mg/dL Calcium (8.4-10.2) mg/dL Magnesium (1.6-2.3) mg/dL Total Protein (6.3-8.2) g/dL Albumin (3.5-5.0) g/dL 12/16/16 12/16/16 12/16/16 Range/Units 03:46 04:32 04:32 RBC 3.17 L (4.30-5.90) m/uL Hgb 9.8 L (13.0-17.5) gm/dL Hct 29.5 L (39.0-53.0) % Plt Count 69 L (150-450) k/uL Neutrophils # (Manual) 8.3 H (1.3-7.7) k/uL Lymphocytes # (Manual) 0.9 L (1.0-4.8) k/uL PT (9.0-12.0) sec ABG pH (7.35-7.45) ABG HCO3 (21-25) mmol/L ABG Total CO2 (19-24) mmol/L ABG O2 Saturation (94-97) % BUN 22 H (9-20) mg/dL Glucose 115 H (74-99) mg/dL POC Glucose (mg/dL) 119 H (75-99) mg/dL Calcium 8.2 L (8.4-10.2) mg/dL Magnesium 2.7 H (1.6-2.3) mg/dL Total Protein 4.9 L (6.3-8.2) g/dL Albumin 3.2 L (3.5-5.0) g/dL 12/16/16 12/16/16 Range/Units 04:32 06:11 RBC (4.30-5.90) m/uL Hgb (13.0-17.5) gm/dL Hct (39.0-53.0) % Plt Count (150-450) k/uL Neutrophils # (Manual) (1.3-7.7) k/uL Lymphocytes # (Manual) (1.0-4.8) k/uL PT 12.1 H (9.0-12.0) sec ABG pH (7.35-7.45) ABG HCO3 (21-25) mmol/L ABG Total CO2 (19-24) mmol/L ABG O2 Saturation (94-97) % BUN (9-20) mg/dL Glucose (74-99) mg/dL POC Glucose (mg/dL) 140 H (75-99) mg/dL Calcium (8.4-10.2) mg/dL Magnesium (1.6-2.3) mg/dL Total Protein (6.3-8.2) g/dL Albumin (3.5-5.0) g/dL Microbiology - Last 24 Hours (Table) 12/14/16 16:33 Gram Stain - Preliminary Sputum Sputum Culture - Preliminary - Imaging and Cardiology Chest x-ray: report reviewed, image reviewed Assessment and Plan (1) NSTEMI (non-ST elevated myocardial infarction) Status: Acute (2) Coronary artery disease Status: Acute (3) Hyperlipemia Status: Acute (4) COPD (chronic obstructive pulmonary disease) Status: Acute (5) Anxiety Status: Acute Plan: 1. Continue aspirin but decrease to 81 mg, Lipitor, beta jignesh. 2. DC plavix/heparin. Start Arixtra. HIT antibody test ordered. 3. Encourage aggressive use of incentive spirometry, coughing using heart hugger. Continue DuoNeb updrafts per pulmonary. 4. Added Xanax for patient's anxiety. 5. Will give lasix 20 mg IVP today. 6. Will DC Drayton. 7. May transition to scheduled SQ insulin per primary service 8. Increase activity, out of bed all day, ambulate in the hallway 3 times today. 9. Wean O2 as tolerated. 10. More recommendations as patient progresses. Time with Patient: Greater than 30
--- NOTE | 2016-12-16 10:33 | PN ---
This is a 66-year-old male who was seen, evaluated and examined in the ICU. He is sitting upright on the chair, breathing comfortably, but gets short of breath on minimal activity and exertion. Patient is complaining of shortness of breath though and wheezing as well. Patient has been successfully weaned and extubated later on yesterday, was able to tolerate CPAP pressure support trial fairly well, but, however, did require extra dose of IV Solu-Medrol, which one dose has been given this morning as well. He is complaining of breathing difficulty, but denies any chest pain. Pain is adequately controlled for bypass surgery. His output is adequate. He has 2 mediastinal tubes and left-sided chest tube. No air leak is present on the left side chest tube. Mediastinal tubes have been draining air. His x-ray performed today has been reviewed. He has cardiomegaly, interstitial edema, basal atelectasis. [place]-Rosie catheter is stable. No large pleural effusion or pneumothorax is seen. Subcu emphysema has been noted on the left side. Laboratory data reviewed. White cell count 9900, hemoglobin 9.8, hematocrit 29, platelet count 69,000. PT, INR 12.1 and 1.2. Sodium is 141, potassium 4.1. BUN and creatinine 22 and 0.8. LFTs otherwise within normal limits. Medications reviewed. Laboratory data reviewed as well. On examination, his most recent vitals include blood pressure is 158/84, respiratory rate in mid 20s, heart rate 82, temperature 98, saturation of 95% on 5 L oxygen, PA pressure 50/18. HEENT EXAMINATION: Otherwise unremarkable. NECK: Supple. Neck veins are prominent. LUNGS: Bilateral coarse inspiratory, expiratory wheezing and rhonchi are present. HEART: Regular rate and rhythm. S1 and S2 audible. ABDOMEN: Soft. No rebound or rigidity. EXTREMITIES: +1 peripheral pulses. NEUROLOGICAL EXAMINATION: Awake and alert IMPRESSION: 1. Coronary artery disease, status post coronary artery bypass graft x3. 2. Severe chronic obstructive pulmonary disease, emphysema and chronic hypoxic respiratory failure related to bypass surgery. 3. Air leak from the mediastinal tubes, some subcutaneous emphysema cannot be excluded, will maintain the chest tube. The patient is now off of positive pressure ventilation. Hopefully that will expedite the healing process. 4. Severe and chronic persistent asthma. The patient is slowly recovering from it, but does need extra IV steroids. Will give one more dose. We will follow clinical course closely. Further recommendations pending. Critical care time spent 35 minutes.
[2016-12-16] MEDS ORDERED: methylPREDNISolone SOD SUCCI 125 MG/2 ML VIAL IV STA (10:55)
[2016-12-16 11:46] LABS: Glucose,Whole Blood 160 mg/dL (75-99)
--- NOTE | 2016-12-16 12:02 | PN ---
Ben is a 66-year-old gentleman who is status post CABG postop day #3. Was extubated yesterday and has had some problems with breathing yesterday but today looks much better. Denies chest pain, rhythm is stable. Blood pressures are normal. He is on metoprolol 25 b.i.d., Lipitor 40 q. daily, aspirin. On exam, comfortable at rest. Vital signs are stable. Blood pressure is somewhat poorly controlled. Chest exam reveals diminished air entry at the bases. Heart exam reveals first and second heart sounds. No gallop. Exam of the extremities did not reveal any edema. Peripheral pulses are felt. Labs show a hemoglobin of 9.8. Creatinine is 0.8. Potassium is 4.1. ASSESSMENT: 1. Coronary artery disease, status post coronary artery bypass grafting, postoperative day #2. 2. Advised him on incentive spirometry. I am going to add lisinopril 5 mg daily for more optimal blood pressure control.
[2016-12-16] MEDS: LACTATED RINGERS 1,000 ML IV SCH ×2 (13:08→19:17)
[2016-12-16] MEDS: LISINOPRIL 5 MG TAB PO SCH (13:09)
[2016-12-16 17:57] LABS: Glucose,Whole Blood 316 mg/dL (75-99)
[2016-12-16 19:16] LABS: Glucose,Whole Blood 145 mg/dL (75-99)
[2016-12-16] MEDS: SENNOSIDES-DOCUSATE SODIUM 1 EACH TAB PO SCH (19:20)
[2016-12-16 21:32] LABS: Glucose,Whole Blood 147 mg/dL (75-99)
[2016-12-16] MEDS: ALPRAZolam 0.25 MG TAB PO PRN (22:30)
[2016-12-17 05:26] LABS: Basophils % (A) 0 %; CH 30.7; CHCM 32.9; Eosinophils # (A) 0.1 k/uL (0-0.7); Eosinophils % (A) 1 %; HCT 33.9 % (39.0-53.0); HGB 11.2 gm/dL (13.0-17.5); Luc # (Auto) 0.13; Luc % (Auto) 1; Lymphocytes # (A) 1.7 k/uL (1.0-4.8); Lymphocytes % (A) 9 %; MCH 30.9 pg (25.0-35.0); MCHC 32.9 g/dL (31.0-37.0); MCV 93.8 fL (80.0-100.0); Mean Platelet Volume 7.8; Monocytes # (A) 0.9 k/uL (0-1.0); Monocytes % (A) 5 %; Neutrophils # (A) 15.4 k/uL (1.3-7.7); Neutrophils % (A) 84 %; RBC 3.61 m/uL (4.30-5.90); RDW 13.3 % (11.5-15.5); WBC 18.2 k/uL (3.8-10.6); WBC (Perox) 19.14
[2016-12-17 05:40] LABS: Ionized Calcium 4.9 mg/dL (4.5-5.3)
[2016-12-17 05:51] LABS: ALT 33 U/L (21-72); AST 28 U/L (17-59); Alkaline Phosphatase 43 U/L (38-126); Anion Gap 9 mmol/L; Blood Urea Nitrogen 27 mg/dL (9-20); Calcium 8.4 mg/dL (8.4-10.2); Carbon Dioxide 30 mmol/L (22-30); Chloride 103 mmol/L (98-107); Glucose 135 mg/dL (74-99); Magnesium 2.6 mg/dL (1.6-2.3); Non-African American GFR(MDRD) >60 (>60 ml/min/1.73 sqM); Potassium 4.3 mmol/L (3.5-5.1); Sodium 142 mmol/L (137-145); Total Bilirubin 0.8 mg/dL (0.2-1.3); Total Protein 5.2 g/dL (6.3-8.2)
[2016-12-17] MEDS: HYDROcodone/APAP 5-325MG 1 EACH TAB PO PRN ×4 (06:26→23:59)
[2016-12-17] MEDS: METOPROLOL TARTRATE 25 MG TAB PO SCH ×3 (06:30→20:03)
[2016-12-17 07:22] LABS: Glucose,Whole Blood 139 mg/dL (75-99)
--- NOTE | 2016-12-17 07:35 | P.PN ---
<Marianela Douglas - Last Filed: 12/17/16 07:20> Subjective Principal diagnosis: Coronary artery disease. POD #3 coronary artery bypass grafting 3 vessels, left internal mammary artery to the left anterior descending artery, saphenous vein graft to diagonal artery, saphenous vein graft to distal right coronary artery. Endoscopic vein harvest left greater saphenous vein. Epi-aortic ultrasound. Transesophageal echocardiogram. Fiberoptic bronchoscopy performed by Dr. Null. Patient currently sitting in chair, less anxious than yesterday. Denies pain, states he got some sleep last night, feels better than yesterday. Objective - Vital Signs Vital signs: Vital Signs Temp 98.2 F 12/17/16 00:00 Pulse 79 12/17/16 06:00 Resp 22 12/17/16 06:00 BP 150/77 12/17/16 06:00 Pulse Ox 99 12/17/16 06:00 Intake & Output 12/16/16 12/17/16 12/17/16 18:59 06:59 18:59 Intake Total 390 250 Output Total 1639 810 Balance -1249 -560 Weight 103.9 kg Intake: IV 390 250 CO/CI 20 Lactated Ringers 1,000 ml 370 250 @ 20 mls/hr IV .Q24H [facility] Rx#:[id number] Output: Chest Tube Drainage 364 180 Chest Tube Left 134 90 Chest Tube Right Pleural/ 230 90 Mediastinal Urine 1275 630 Other: Voiding Method Indwelling Catheter Indwelling Catheter ABP, PAP, CO, CI - Last Documented Arterial Blood Pressure 108/63 Pulmonary Artery Pressure 52/19 Cardiac Output 7.8 Cardiac Index 3.7 - Respiratory Details: Lungs sounds diminished with expiratory wheezes throughout. Respirations even and nonlabored. Currently on 3 L nasal cannula. Positive SQ air left neck. Right pleural chest tube connected to -20 cm wall suction, draining serosanguineous fluid, 100 mL in the last 12 hours, 320 mL in the last 24 hours. Left pleural chest tube to -20 cm wall suction, draining serosanguineous fluid, 90 mL in the last 12 hours, 224 mL in the last 24 hours. Only able to achieve 250 mL on his incentive spirometry this morning. Positive air leak and both atriums. - Cardiovascular Details: S1-S2 present. Regular rate and rhythm. Sinus rhythm on telemetry with PVCs. Chest stable. AV epicardial pacemaker wires present but capped. Bilateral lower extremity edema present, somewhat less than yesterday. Heart hugger in place with patient demonstrating appropriate use. Teds, SCDs in place. - Gastrointestinal Gastrointestinal Comment(s): Abdomen soft, nontender, nondistended. Active bowel sounds 4 quadrants. Positive flatus, negative BM at this point. Tolerating diet. - Genitourinary Genitourinary Comment(s): Estevez still present draining clear yellow urine. - Musculoskeletal Musculoskeletal Comment(s): Able to get up to the chair with assist 1. - Psychiatric Psychiatric: Present: A&O x's 3, appropriate affect, intact judgment & insight - Allied health notes Allied health notes reviewed: nursing - Labs CBC & Chem 7: 12/17/16 05:02 12/17/16 05:02 Labs: Abnormal Lab Results - Last 24 Hours (Table) 12/16/16 12/16/16 12/16/16 Range/Units 07:58 11:44 17:55 WBC (3.8-10.6) k/uL RBC (4.30-5.90) m/uL Hgb (13.0-17.5) gm/dL Hct (39.0-53.0) % Plt Count (150-450) k/uL Neutrophils # (1.3-7.7) k/uL BUN (9-20) mg/dL Glucose (74-99) mg/dL POC Glucose (mg/dL) 161 H 160 H 316 H (75-99) mg/dL Magnesium (1.6-2.3) mg/dL Total Protein (6.3-8.2) g/dL Albumin (3.5-5.0) g/dL 12/16/16 12/16/16 12/17/16 Range/Units 19:14 21:30 05:02 WBC 18.2 H (3.8-10.6) k/uL RBC 3.61 L (4.30-5.90) m/uL Hgb 11.2 L (13.0-17.5) gm/dL Hct 33.9 L (39.0-53.0) % Plt Count 113 L D (150-450) k/uL Neutrophils # 15.4 H (1.3-7.7) k/uL BUN (9-20) mg/dL Glucose (74-99) mg/dL POC Glucose (mg/dL) 145 H 147 H (75-99) mg/dL Magnesium (1.6-2.3) mg/dL Total Protein (6.3-8.2) g/dL Albumin (3.5-5.0) g/dL 12/17/16 Range/Units 05:02 WBC (3.8-10.6) k/uL RBC (4.30-5.90) m/uL Hgb (13.0-17.5) gm/dL Hct (39.0-53.0) % Plt Count (150-450) k/uL Neutrophils # (1.3-7.7) k/uL BUN 27 H (9-20) mg/dL Glucose 135 H (74-99) mg/dL POC Glucose (mg/dL) (75-99) mg/dL Magnesium 2.6 H (1.6-2.3) mg/dL Total Protein 5.2 L (6.3-8.2) g/dL Albumin 3.3 L (3.5-5.0) g/dL Assessment and Plan (1) NSTEMI (non-ST elevated myocardial infarction) Status: Acute (2) Coronary artery disease Status: Acute (3) Hyperlipemia Status: Acute (4) COPD (chronic obstructive pulmonary disease) Status: Acute (5) Anxiety Status: Acute Plan: 1. Continue aspirin, Lipitor, RIGOBERTO inhibitor.Will increase Lopressor to 3 times a day. 2. Continue Arixtra. HIT antibody test ordered, results pending. 3. Continue to encourage aggressive use of incentive spirometry, coughing using heart hugger. Continue DuoNeb updrafts per pulmonary. 4. ODALIS Estevez, ODALIS Cordis. 5. GI/DVT prophylaxis 6. Increase activity, out of bed all day, ambulate in the hallway 3 times today , continue with physical therapy. 7. Wean O2 as tolerated. 8. More recommendations as patient progresses. Time with Patient: Greater than 30 <Arun Bhatt - Last Filed: 12/17/16 11:57> Objective - Vital Signs Vital signs: Vital Signs Temp 98.4 F 12/17/16 09:00 Pulse 76 12/17/16 11:42 Resp 21 12/17/16 10:00 BP 121/64 12/17/16 10:00 Pulse Ox 92 L 12/17/16 10:00 Intake & Output 12/16/16 12/17/16 12/17/16 18:59 06:59 18:59 Intake Total 390 250 40 Output Total 1639 810 150 Balance -1249 -560 -110 Weight 103.9 kg Intake: IV 390 250 40 CO/CI 20 Lactated Ringers 1,000 ml 370 250 40 @ 20 mls/hr IV .Q24H [facility] Rx#:[id number] Output: Chest Tube Drainage 364 180 0 Chest Tube Left 134 90 0 Chest Tube Right Pleural/ 230 90 0 Mediastinal Urine 1275 630 150 Other: Voiding Method Indwelling Catheter Indwelling Catheter ABP, PAP, CO, CI - Last Documented Arterial Blood Pressure 108/63 Pulmonary Artery Pressure 52/19 Cardiac Output 7.8 Cardiac Index 3.7 - Labs CBC & Chem 7: 12/17/16 05:02 12/17/16 05:02 Labs: Abnormal Lab Results - Last 24 Hours (Table) 12/16/16 12/16/16 12/16/16 Range/Units 17:55 19:14 21:30 WBC (3.8-10.6) k/uL RBC (4.30-5.90) m/uL Hgb (13.0-17.5) gm/dL Hct (39.0-53.0) % Plt Count (150-450) k/uL Neutrophils # (1.3-7.7) k/uL BUN (9-20) mg/dL Glucose (74-99) mg/dL POC Glucose (mg/dL) 316 H 145 H 147 H (75-99) mg/dL Magnesium (1.6-2.3) mg/dL Total Protein (6.3-8.2) g/dL Albumin (3.5-5.0) g/dL 12/17/16 12/17/16 12/17/16 Range/Units 05:02 05:02 07:19 WBC 18.2 H (3.8-10.6) k/uL RBC 3.61 L (4.30-5.90) m/uL Hgb 11.2 L (13.0-17.5) gm/dL Hct 33.9 L (39.0-53.0) % Plt Count 113 L D (150-450) k/uL Neutrophils # 15.4 H (1.3-7.7) k/uL BUN 27 H (9-20) mg/dL Glucose 135 H (74-99) mg/dL POC Glucose (mg/dL) 139 H (75-99) mg/dL Magnesium 2.6 H (1.6-2.3) mg/dL Total Protein 5.2 L (6.3-8.2) g/dL Albumin 3.3 L (3.5-5.0) g/dL Assessment and Plan (1) Coronary artery disease Status: Acute (2) NSTEMI (non-ST elevated myocardial infarction) Status: Acute Plan: The patient was seen and examined. I agree with the above assessment and plan. Overall he appears to be improving. He is sitting up in bed and does not appear to be anxious. His saturations are good on nasal cannula oxygen though he has poor inspiratory effort with incentive spirometry. We'll continue with bronchodilators. His beta jignesh was increased to 3 times a day. His platelet count has improved so we will resume Plavix. His Estevez catheter, cordis, and pacing wires will be removed today. I did place his chest tubes to water seal. He continues to have an air leak. We will encourage him to continue with ambulation. He may be stable for transfer to [facility] in the morning.
--- NOTE | 2016-12-17 07:38 | XR ---
EXAMINATION TYPE: XR chest 1V DATE OF EXAM: 12/17/2016 6:47 AM COMPARISON: 12/16/2016 INDICATION: Difficulty breathing, chest tubes TECHNIQUE: Single frontal view of the chest is obtained. FINDINGS: The heart size is normal. The pulmonary vasculature is normal. There is a left-sided chest tube. No pneumothorax is evident. Subcutaneous emphysema is at the left n martin. There appears to be some improving bibasilar atelectasis. IMPRESSION: 1. Minimal resolving atelectasis. 2. Left-sided chest tube. No pneumothorax is evident.
[2016-12-17] MEDS: IPRATROPIUM-ALBUTEROL 3 ML NEB INHALATION SCH ×4 (07:54→20:35)
[2016-12-17] MEDS: INSULIN LISPRO (humaLOG) 300 UNIT/3 ML VIAL SQ SCH ×4 (09:12→20:08)
[2016-12-17] MEDS: LISINOPRIL 5 MG TAB PO SCH (09:24)
[2016-12-17] MEDS: PANTOPRAZOLE 40 MG/10 ML VIAL IVP SCH (09:24)
[2016-12-17] MEDS: ASPIRIN 81 MG CHEW PO SCH (09:24)
[2016-12-17] MEDS: MUPIROCIN 2% OINT 22 GM TUBE NASAL SCH ×2 (09:24→20:03)
[2016-12-17] MEDS: ATORVASTATIN 40 MG TAB PO SCH (09:24)
[2016-12-17] MEDS: FONDAPARINUX 2.5 MG/0.5 ML SYRINGE SQ SCH (10:35)
[2016-12-17] MEDS: CLOPIDOGREL 75 MG TAB PO SCH (10:35)
[2016-12-17 12:15] LABS: Glucose,Whole Blood 111 mg/dL (75-99)
[2016-12-17 12:35] VITALS: BMI 31.0
[2016-12-17] MEDS: LACTATED RINGERS 1,000 ML IV SCH (13:06)
--- NOTE | 2016-12-17 14:29 | PN ---
Ben is a 66-year-old gentleman who is CABG postop day. Postop day number four. Doing much better. The pacer wires are out. Chest tubes hopefully will come out tomorrow morning. Blood pressures are well-controlled. On exam, heart rate is 80 beats per minute, blood pressure is 138/80, respiratory rate is 18. Chest exam reveals occasional rhonchi with diminished air entry. Heart exam reveals first and second heart sounds. No gallop. Exam of the extremities did not reveal any edema. Peripheral pulses are felt. The patient is currently on: 1. Aspirin. 2. Lipitor. 3. Plavix 75 mg daily. 4. Lopressor 25 t.i.d. ASSESSMENT: 1. Coronary artery disease status post coronary artery bypass graft. 2. Respiratory insufficiency. PLAN: The patient is doing much better. He will continue with his current medications. Hopefully can moved out of ICU tomorrow.
--- NOTE | 2016-12-17 15:12 | XR ---
EXAMINATION TYPE: XR chest 1V portable DATE OF EXAM: 12/17/2016 3:01 PM COMPARISON: NONE INDICATION: TECHNIQUE: Single frontal view of the chest is obtained. FINDINGS: The heart size is normal. The pulmonary vasculature is normal. The lungs are clear. Left-sided chest tube is present. No pneumothorax is evident. Subcutaneous emphysema is in the left n martin. IMPRESSION: 1. No pneumothorax. Left-sided chest tube remains in position
--- NOTE | 2016-12-17 16:12 | PN ---
66-year-old male who is seen, evaluated, examined. This patient has problems associated with severe coronary artery disease, status post CABG x3. He has a severe degree of COPD, emphysema and chronic persistent asthma. The patient has been successfully weaned and extubated. He is being monitored off of steroids now. He is more calmer. He did require some benzodiazepine yesterday. With that his mood is much better. He is breathing with relatively more comfortably at this time. Less level of anxiety and apprehension is seen. He is not on any vasopressors. His heart rate is 100 and regular, temperature 98, blood pressure 128/78 and Ladora-Rosie catheter, has been removed. He still has left-sided chest tube and mediastinal tubes significant emphysema, subcutaneously supraclavicular area in chest wall is present. Not much change though. Patient continued to manifest significantly from mediastinal area. On examination, most recent vitals include blood pressure is 128/70, respiratory rate is 22, pulse 67, temperature 98, saturation 94%. HEENT: Unremarkable. NECK: Supple. LUNGS: Good air entry bilaterally. HEART: Regular rate and rhythm. S1 and S2 audible. ABDOMEN: Soft. No rebound or rigidity. EXTREMITIES: +1 peripheral pulses. NEUROLOGICAL EXAMINATION: Awake and alert. Subcu emphysema as dictated above, basal crackles not much change as noted previously. Labs reviewed. White cell count 18,200, hemoglobin 11, hematocrit 33. Platelet 113,000. Sodium 142, potassium 4.2. BUN 27 and creatinine 0.7. Current medications reviewed and include: 1. Tylenol with Codeine. 2. DuoNeb updraft 4 times a day and as needed. 3. Xanax. 4. Aspirin. 5. Lipitor. 6. Cepacol. 7. Dulcolax. 8. Plavix. 9. Arixtra. 10. Humalog. 11. Alar. 12. Milk of magnesia. 13. Bupropion. 14. Protonix. Chest x-ray performed earlier today reviewed and compared with the prior x-ray, atelectasis as dictated above with the bases stable tubes. IMPRESSION: 1. Coronary artery disease, status post coronary artery bypass grafting times three. 2. Mediastinal emphysema and thoracic wall emphysema being monitored and observed. Chest tube was in stable. Continued drain daily. 3. Severe chronic obstructive pulmonary disease emphysema and hypoxic respiratory failure related to that on breathing treatments and deep breathing incentive spirometry. Will add Pulmicort as well. 4. Generalized anxiety disorder and apprehension. 5. Dyslipidemia. 6. Hypertension, hypertensive cardiovascular disease. 7. Non- ST segment elevated myocardial infarction and cardiomyopathy with acute on chronic systolic heart failure. PLAN: As above. Continue supportive care. Keep patient in ICU.
[2016-12-17 17:21] LABS: Glucose,Whole Blood 114 mg/dL (75-99)
--- NOTE | 2016-12-17 19:18 | PN ---
INTENSIVE CARE UNIT of 30 minutes. DATE OF SERVICE: 12/16/2016 CHIEF COMPLAINT: A 66-year-old white male, status post bypass x3 surgery he has got multiple chest tubes in, he is on multiple drips. He is on CPAP. He is on IV Solu-Medrol, which is being increased. He states he cannot breathe at this time. I ordered Pulmicort updrafts b.i.d. to go with his DuoNeb updrafts. Cardiology and pulmonary are seeing the patient. He is sitting up in a chair. White count 9900, hemoglobin 9.8. He is quite anxious, nervous. Some Ativan will be given through the IV. Sodium 141, potassium 4.1. BUN is 22, creatinine 1.8. Vital signs were reviewed. Medications reviewed. Consults with multiple surgeons are reviewed. Blood pressure 150/80's, respiratory rate mid 20s, heart rate 70s to 80s. HEENT: Appears nervous and anxious. PSYCHIATRY: Giving appropriate answers. ( ) decreased breath sounds x4, expiratory wheeze x4. Heart: Regular rate and rhythm. Abdomen is soft. EXTREMITIES: 1+ peripheral pulses. NEUROLOGIC: Alert and oriented times three. ASSESSMENT: 1. Coronary artery disease, status post coronary artery bypass grafting. 2. Severe chronic obstructive pulmonary disease. 3. Emphysema. 4. Chronic respiratory heart failure. 5. Chronic respiratory failure. Add Pulmicort to DuoNeb as air leak from the mediastinal tubes, he is on positive ventilator pressure secondary to leak in the chest tube. 6. Asthma, continue with IV steroids, updrafts with albuterol and Atrovent. ICU time: 30 minutes.
--- NOTE | 2016-12-17 19:38 | PN ---
CHIEF COMPLAINT: 66-year-old male status post coronary artery bypass graft surgery day three. His breathing is improved today with Pulmicort, updrafts added to the Duoneb updrafts as well as IV steroids for severe COPD. He is very anxious for which he takes benzodiazepines at home. He is more anxious today, less anxious with the medicine given. Heart rate is in 90s to low 100s and regular. Temperature is 98, afebrile. Blood pressure 120s over 70s. He has a left-sided chest tube and mediastinal tube. He is sitting up in a chair, 128/70. Blood pressure, respiratory rate 20 to 22, pulse 60-70, temp 98, O2 94% on 2 liters. HEENT: Normocephalic, atraumatic. NECK: Supple. No mass. LUNGS: Clear air flow. HEART: Regular rate and rhythm. S1, S2. ABDOMEN: Soft, nontender. EXTREMITIES: 1+ peripheral pulses. NEUROLOGIC: Alert and oriented x3. He has some mild subcutaneous emphysema. Medications include: 1. Tylenol with codeine. 2. Xanax. 3. Aspirin. 4. Lipitor. 5. ( ). 6. Dulcolax. 7. Plavix. 8. ( ). 9. Humalog. 10. ( ). 11. Milk of magnesia. 12. Bupropion. 13. Protonix. Chest x-ray is stable. ASSESSMENT: 1. Coronary artery disease, status post coronary artery bypass grafting times three, day three. 2. Mediastinal emphysema. Chest tube stable with severe chronic obstructive pulmonary disease. 3. Acute hypoxemic respiratory failure. Continue Pulmicort DuoNeb. 4. Anxiety. 5. Dyslipidemia. 6. Hypertension. 7. ( ) cardiomyopathy. 8. Acute on chronic systolic heart failure. PLAN: Continue current treatment as mentioned above with all the medications, wean out chest tubes as needed. ICU time: 30 minutes.
[2016-12-17] MEDS: SENNOSIDES-DOCUSATE SODIUM 1 EACH TAB PO SCH (20:04)
[2016-12-17 20:09] LABS: Glucose,Whole Blood 120 mg/dL (75-99)
[2016-12-17] MEDS: BUDESONIDE 0.5 MG/2 ML NEBU INHALATION SCH (20:35)
[2016-12-18] MEDS: ALPRAZolam 0.25 MG TAB PO PRN ×2 (02:55→20:54)
[2016-12-18] MEDS: INSULIN LISPRO (humaLOG) 300 UNIT/3 ML VIAL SQ SCH ×4 (06:55→22:05)
[2016-12-18 06:56] LABS: Glucose,Whole Blood 103 mg/dL (75-99)
[2016-12-18 07:48] LABS: Glucose,Whole Blood 97 mg/dL (75-99)
[2016-12-18] MEDS: ASPIRIN 81 MG CHEW PO SCH (08:01)
[2016-12-18] MEDS: PANTOPRAZOLE 40 MG/10 ML VIAL IVP SCH (08:01)
[2016-12-18] MEDS: ATORVASTATIN 40 MG TAB PO SCH (08:01)
[2016-12-18] MEDS: FONDAPARINUX 2.5 MG/0.5 ML SYRINGE SQ SCH (08:01)
[2016-12-18] MEDS: LISINOPRIL 5 MG TAB PO SCH (08:01)
[2016-12-18] MEDS: CLOPIDOGREL 75 MG TAB PO SCH (08:01)
[2016-12-18] MEDS: METOPROLOL TARTRATE 25 MG TAB PO SCH ×3 (08:01→20:55)
[2016-12-18] MEDS: HYDROcodone/APAP 5-325MG 1 EACH TAB PO PRN ×2 (08:05→20:53)
[2016-12-18 08:36] LABS: Basophils # (A) 0.1 k/uL (0-0.2); Basophils % (A) 0 %; CH 30.6; CHCM 31.8; Eosinophils # (A) 0.2 k/uL (0-0.7); Eosinophils % (A) 1 %; HCT 37.8 % (39.0-53.0); HGB 11.8 gm/dL (13.0-17.5); Luc % (Auto) 1; Lymphocytes # (A) 2.4 k/uL (1.0-4.8); Lymphocytes % (A) 15 %; MCH 30.1 pg (25.0-35.0); MCHC 31.2 g/dL (31.0-37.0); MCV 96.7 fL (80.0-100.0); Mean Platelet Volume 8.1; Monocytes # (A) 0.8 k/uL (0-1.0); Monocytes % (A) 5 %; Neutrophils # (A) 12.8 k/uL (1.3-7.7); Neutrophils % (A) 78 %; RBC 3.91 m/uL (4.30-5.90); RDW 13.4 % (11.5-15.5); WBC 16.3 k/uL (3.8-10.6); WBC (Perox) 17.57
[2016-12-18 08:43] LABS: Ionized Calcium 4.7 mg/dL (4.5-5.3)
[2016-12-18] MEDS: IPRATROPIUM-ALBUTEROL 3 ML NEB INHALATION SCH ×4 (08:51→20:15)
[2016-12-18] MEDS: BUDESONIDE 0.5 MG/2 ML NEBU INHALATION SCH ×2 (08:51→20:15)
[2016-12-18 09:03] LABS: ALT 40 U/L (21-72); AST 55 U/L (17-59); Alkaline Phosphatase 53 U/L (38-126); Anion Gap 8 mmol/L; Blood Urea Nitrogen 29 mg/dL (9-20); Calcium 8.2 mg/dL (8.4-10.2); Carbon Dioxide 29 mmol/L (22-30); Chloride 104 mmol/L (98-107); Glucose 122 mg/dL (74-99); Magnesium 2.3 mg/dL (1.6-2.3); Non-African American GFR(MDRD) >60 (>60 ml/min/1.73 sqM); Potassium 3.9 mmol/L (3.5-5.1); Sodium 141 mmol/L (137-145); Total Bilirubin 1.2 mg/dL (0.2-1.3); Total Protein 5.3 g/dL (6.3-8.2)
--- NOTE | 2016-12-18 09:15 | XR ---
EXAMINATION TYPE: XR chest 1V portable DATE OF EXAM: 12/18/2016 6:55 AM COMPARISON: 12/17/2016 INDICATION: Postop CABG TECHNIQUE: Single frontal view of the chest is obtained. FINDINGS: The heart size is normal. The pulmonary vasculature is normal. There is a left lower lobe infiltrate. There appear to be 2 mediastinal tubes present. A left-sided chest tube is present. No pneumothorax i s evident. Sternotomy wires are present. EKG leads overlie the chest. IMPRESSION: 1. Left lower lobe infiltrate. 2. Lines and catheters discussed above
[2016-12-18] MEDS ORDERED: POTASSIUM CHLORIDE ER 20 MEQ TAB.ER PO SCH (10:00)
--- NOTE | 2016-12-18 11:37 | P.PN ---
Progress Note - Text CV Surgery Nursing POD: #4, coronary artery bypass grafts 3 utilizing a left internal mammary artery to left anterior descending artery, reverse saphenous vein grafts to the diagonal branch, distal right coronary artery. Endoscopic vein harvesting of the left greater saphenous vein. Transesophageal echocardiogram and epi-aortic ultrasonography. Fiberoptic bronchoscopy performed by Dr. Null. Patient awake and alert, no distress noted, no specific complaints. Vital Signs: Afebrile , T-max is 98.9F Vital Signs - 24 hr 12/17/16 12/17/16 12/17/16 11:42 11:53 12:00 Temperature 98.4 F Pulse Rate 76 79 80 Pulse Rate [ 67 Pulse Oximetery ] Respiratory 25 H Rate Blood Pressure 138/82 O2 Sat by Pulse 98 Oximetry 12/17/16 12/17/16 12/17/16 13:00 14:00 15:00 Temperature Pulse Rate 86 102 H 89 Pulse Rate [ Pulse Oximetery ] Respiratory 45 H 22 25 H Rate Blood Pressure 115/82 128/78 134/66 O2 Sat by Pulse 88 L 98 92 L Oximetry 12/17/16 12/17/16 12/17/16 15:40 15:52 16:00 Temperature Pulse Rate 92 76 Pulse Rate [ Pulse Oximetery ] Respiratory 25 H 22 Rate Blood Pressure 98/77 O2 Sat by Pulse 98 Oximetry 12/17/16 12/17/16 12/17/16 16:02 17:00 18:00 Temperature 98.4 F Pulse Rate 88 77 84 Pulse Rate [ Pulse Oximetery ] Respiratory 16 22 Rate Blood Pressure 117/75 121/80 O2 Sat by Pulse 98 96 Oximetry 12/17/16 12/17/16 12/17/16 19:00 20:00 20:36 Temperature 98.8 F Pulse Rate 83 82 82 Pulse Rate [ 67 Pulse Oximetery ] Respiratory 22 27 H Rate Blood Pressure 93/59 103/68 O2 Sat by Pulse 94 L 93 L Oximetry 12/17/16 12/17/16 12/17/16 21:00 22:00 23:00 Temperature Pulse Rate 75 92 87 Pulse Rate [ Pulse Oximetery ] Respiratory 22 26 H 20 Rate Blood Pressure 101/66 140/99 100/73 O2 Sat by Pulse 95 94 L 98 Oximetry 12/17/16 12/18/16 12/18/16 23:21 00:00 01:00 Temperature 98.9 F Pulse Rate 81 99 103 H Pulse Rate [ Pulse Oximetery ] Respiratory 24 17 18 Rate Blood Pressure 100/73 140/84 145/83 O2 Sat by Pulse 98 98 96 Oximetry 12/18/16 12/18/16 12/18/16 02:00 03:00 04:00 Temperature 98.3 F Pulse Rate 87 68 70 Pulse Rate [ Pulse Oximetery ] Respiratory 24 21 16 Rate Blood Pressure 157/75 149/78 106/64 O2 Sat by Pulse 97 97 97 Oximetry 12/18/16 12/18/16 12/18/16 05:00 06:00 07:00 Temperature Pulse Rate 96 81 71 Pulse Rate [ Pulse Oximetery ] Respiratory 18 13 34 H Rate Blood Pressure 107/66 116/73 142/72 O2 Sat by Pulse 94 L 95 99 Oximetry 12/18/16 12/18/16 12/18/16 08:00 08:52 09:00 Temperature Pulse Rate 80 68 76 Pulse Rate [ Pulse Oximetery ] Respiratory 20 25 H Rate Blood Pressure 142/72 117/71 O2 Sat by Pulse 94 L 97 Oximetry 12/18/16 12/18/16 09:11 10:00 Temperature Pulse Rate 68 71 Pulse Rate [ Pulse Oximetery ] Respiratory 30 H Rate Blood Pressure 113/68 O2 Sat by Pulse 96 Oximetry Labs: Short CBC 12/18/16 Range/Units 08:20 WBC 16.3 H (3.8-10.6) k/uL Hgb 11.8 L (13.0-17.5) gm/dL Hct 37.8 L (39.0-53.0) % Plt Count 141 L (150-450) k/uL Neutrophils # 12.8 H (1.3-7.7) k/uL BMP 12/18/16 08:20 Sodium 141 Potassium 3.9 Chloride 104 Carbon Dioxide 29 BUN 29 H Creatinine 0.78 Glucose 122 H Calcium 8.2 L Liver Function 12/18/16 Range/Units 08:20 Total Bilirubin 1.2 (0.2-1.3) mg/dL AST 55 (17-59) U/L ALT 40 (21-72) U/L Alkaline Phosphatase 53 (38-126) U/L Albumin 3.2 L (3.5-5.0) g/dL Lungs: Respirations are even and nonlabored, breath sounds diminished bilateral bases. O2 sat: Oxygen saturation is 99% on 3 L of oxygen delivered via nasal cannula. I/S: Patient demonstrates correct use of the incentive spirometer but with very poor effort. 500 mL. Patient was instructed on the importance of the incentive spirometer and verbalized his understanding and his intent to continue use of it. Heart: S1S2, irregular rate and rhythm. Bedside telemetry shows a normal sinus rhythm with frequent PACs. Sternum stable, chest incision clean with silverlon dressing clean and dry. Subcutaneous emphysema is present over the anterior chest wall. Abdomen: Soft, Positive bowel sounds present in all 4 quadrants. CBGs: 97-120 mg/dL U/O: Adequate Chest Tubes: Mediastinal and left pleural chest tubes remain with large air leak which increases once the mediastinal tube is unclamped. Minimal drainage Intake & Output 12/16/16 12/17/16 12/18/16 12/19/16 06:59 06:59 06:59 06:59 Intake Total 1748.183 640 190 Output Total 2500 2449 1555 5 Balance -751.817 -1809 -1365 -5 Weight 103.9 kg 103 kg 99.4 kg Active Medications Acetaminophen/Hydrocodone Bitart ([place] 5-325) 2 each PO Q4HR PRN PRN Reason: Severe Pain Last Admin: 12/18/16 08:05 Dose: 2 each Acetaminophen/Hydrocodone Bitart ([place] 5-325) 1 each PO Q4HR PRN PRN Reason: Moderate Pain Last Admin: 12/17/16 22:55 Dose: 1 each Albuterol/Ipratropium (Duoneb 0.5 Mg-3 Mg/3 Ml Soln) 3 ml INHALATION RT-Q2H PRN PRN Reason: Shortness Of Breath Or Wheezing Albuterol/Ipratropium (Duoneb 0.5 Mg-3 Mg/3 Ml Soln) 3 ml INHALATION RT-QID [facility] Last Admin: 12/18/16 08:51 Dose: 3 ml Alprazolam (Xanax) 0.5 mg PO BID PRN PRN Reason: Anxiety Last Admin: 12/18/16 02:55 Dose: 0.5 mg Aspirin (Aspirin) 325 mg PO DAILY [facility] Atorvastatin Calcium (Lipitor) 40 mg PO DAILY [facility] Last Admin: 12/18/16 08:01 Dose: 40 mg Benzocaine/Menthol (Cepacol Lozenge) 1 each MUCOUS MEM Q2H PRN PRN Reason: Sore Throat Bisacodyl (Dulcolax) 10 mg RECTAL DAILY PRN PRN Reason: Constipation Budesonide (Pulmicort) 0.5 mg INHALATION RT-BID [facility] Last Admin: 12/18/16 08:51 Dose: 0.5 mg Clopidogrel Bisulfate (Plavix) 75 mg PO DAILY [facility] Last Admin: 12/18/16 08:01 Dose: 75 mg Heparin Sodium (Porcine) (Heparin) 5,000 unit SQ Q12HR [facility] Lactated Ringer's (Lactated Ringers) 1,000 mls @ 20 mls/hr IV .Q24H [facility] Last Admin: 12/17/16 13:06 Dose: Not Given Insulin Human Lispro (Humalog) 0 unit SQ ACHS [facility] PRN Reason: Protocol Last Admin: 12/18/16 06:55 Dose: Not Given Lisinopril (Zestril) 5 mg PO DAILY [facility] Last Admin: 12/18/16 08:01 Dose: 5 mg Magnesium Hydroxide (Milk Of Magnesia) 2,400 mg PO BID PRN PRN Reason: Constipation Metoprolol Tartrate (Lopressor) 25 mg PO TID [facility] Last Admin: 12/18/16 08:01 Dose: 25 mg Miscellaneous Information (Magnesium Per Protocol) 1 each MISCELLANE DAILY PRN ; Protocol PRN Reason: Per Protocol Miscellaneous Information (Phosphorus Per Protocol) 1 each MISCELLANE DAILY PRN ; Protocol PRN Reason: Per Protocol Miscellaneous Information (Potassium Per Protocol) 1 each MISCELLANE DAILY PRN ; Protocol PRN Reason: Per Protocol Mupirocin (Bactroban Oint) 1 applic NASAL BID [facility] Ondansetron HCl (Zofran) 4 mg IVP Q6HR PRN PRN Reason: Nausea And Vomiting Pantoprazole Sodium (Protonix) 40 mg IVP DAILY [facility] Last Admin: 12/18/16 08:01 Dose: 40 mg Senna/Docusate Sodium (Senokot-S) 2 each PO HS [facility] Last Admin: 12/17/16 20:04 Dose: Not Given Sodium Chloride (Saline Flush) 10 ml IV Q12HR [facility] Plan: Due to the fact that the air leak increases once the mediastinal chest tubes are unclamped, we will keep the mediastinal and pleural chest tube in place to waterseal for the time being. Transfer patient to stepdown unit. Continue aggressive pulmonary toilet utilizing the incentive spirometer, coughing and deep breathing, and inhalation treatments per respiratory therapy department. Continue to increase activity as tolerated.
--- NOTE | 2016-12-18 11:56 | PN ---
A 66-year-old gentleman who underwent bypass surgery, postoperative day #%. Doing well, remains in sinus rhythm. Hemodynamically stable. He is going to be transferred out to the regular floor. On exam, vitals signs are stable. There is no jugular venous distention. Chest exam reveals diminished air entry at the bases. Heart exam reveals first and second heart sounds. No gallop. Abdomen is soft. Exam of the extremities did not reveal any edema. Peripheral pulses are felt. Labs show a hemoglobin of 11.8. Creatinine is 0.78. Medications include aspirin, Lipitor, Plavix, Zestril, Lopressor. ASSESSMENT: Coronary artery disease, status post coronary artery bypass grafting, postoperative day #5, doing well on optimal medical therapy.
[2016-12-18 12:21] LABS: Glucose,Whole Blood 96 mg/dL (75-99)
[2016-12-18] MEDS: LACTATED RINGERS 1,000 ML IV SCH (14:11)
[2016-12-18 16:51] LABS: Glucose,Whole Blood 139 mg/dL (75-99)
--- NOTE | 2016-12-18 19:53 | PN ---
Ben Mendoza is a 66-year-old with CABG x3. Patient has chronic hypoxic respiratory failure as well. He is awake, breathing comfortably. He has been treated with breathing treatments. He has mediastinal and left-sided chest tube. Cardiovascular service is following. He is mildly short of breath. The severity is stable and improved now. Blood pressure 100/70, respiratory rate 20, pulse 67, temperature 98, saturation of 94% on 3 liters oxygen. HEENT: Unremarkable. NECK: Supple. Subcu emphysema not much changed. LUNGS: Bilateral good air entry. HEART: Regular rate and rhythm. ABDOMEN: Soft. NEUROLOGICAL EXAMINATION: Awake and alert. Chest x-ray revealed basal atelectasis, stable left-sided chest tube. Cardiomyopathy with chronic systolic heart failure related to ischemic cardiomyopathy, status post CABG.
[2016-12-18] MEDS: HEPARIN SODIUM,PORCINE 5,000 UNIT/ML 1 ML VIAL SQ SCH (20:54)
[2016-12-18] MEDS: MUPIROCIN 2% OINT 22 GM TUBE NASAL SCH (20:54)
[2016-12-18 21:15] LABS: Glucose,Whole Blood 112 mg/dL (75-99)
[2016-12-18] MEDS: SENNOSIDES-DOCUSATE SODIUM 1 EACH TAB PO SCH (23:23)
[2016-12-19 02:08] LABS: Glucose,Whole Blood 124 mg/dL (75-99)
[2016-12-19] MEDS: BUDESONIDE 0.5 MG/2 ML NEBU INHALATION SCH ×2 (06:16→20:26)
[2016-12-19] MEDS: IPRATROPIUM-ALBUTEROL 3 ML NEB INHALATION SCH ×4 (06:16→20:26)
[2016-12-19] MEDS: INSULIN LISPRO (humaLOG) 300 UNIT/3 ML VIAL SQ SCH ×4 (06:32→22:40)
[2016-12-19 06:33] LABS: Glucose,Whole Blood 111 mg/dL (75-99)
[2016-12-19] MEDS: ALPRAZolam 0.25 MG TAB PO PRN ×2 (06:35→23:13)
[2016-12-19 07:35] LABS: ALT 48 U/L (21-72); AST 95 U/L (17-59); Alkaline Phosphatase 56 U/L (38-126); Anion Gap 9 mmol/L; Blood Urea Nitrogen 25 mg/dL (9-20); Carbon Dioxide 30 mmol/L (22-30); Chloride 103 mmol/L (98-107); Glucose 104 mg/dL (74-99); Non-African American GFR(MDRD) >60 (>60 ml/min/1.73 sqM); Potassium 4.1 mmol/L (3.5-5.1); Sodium 142 mmol/L (137-145); Total Bilirubin 1.3 mg/dL (0.2-1.3); Total Protein 5.4 g/dL (6.3-8.2)
[2016-12-19] MEDS: HEPARIN SODIUM,PORCINE 5,000 UNIT/ML 1 ML VIAL SQ SCH (07:48)
[2016-12-19] MEDS: ASPIRIN 325 MG TAB PO SCH (07:48)
[2016-12-19] MEDS: ATORVASTATIN 40 MG TAB PO SCH (07:48)
[2016-12-19] MEDS: CLOPIDOGREL 75 MG TAB PO SCH (07:48)
[2016-12-19] MEDS: LISINOPRIL 5 MG TAB PO SCH (07:49)
[2016-12-19] MEDS: MUPIROCIN 2% OINT 22 GM TUBE NASAL SCH ×2 (07:49→23:12)
[2016-12-19] MEDS: PANTOPRAZOLE 40 MG/10 ML VIAL IVP SCH (07:49)
[2016-12-19] MEDS: METOPROLOL TARTRATE 25 MG TAB PO SCH ×3 (07:49→23:13)
[2016-12-19] MEDS: HYDROcodone/APAP 5-325MG 1 EACH TAB PO PRN ×3 (08:12→20:26)
--- NOTE | 2016-12-19 10:28 | P.PN ---
Progress Note - Text Patient is postop day 5 from CABG. He is hemodynamically stable on the stepdown unit. Kidneys to have chest tubes in place with a positive air leak. Drainage is serosanguineous and relatively minimal. The patient is feeling well and feels like he is getting better. He has been ambulating in the hallways. Lung lewis are clear. Heart rate and rhythm rhythm are regular. Sternum is healing well. He has moderate bilateral edema. Overall impression is continued good course status post CABG. [employer] air leak which appears to be diminishing. Plan will be to continue current management. Continue pulmonary port toilet. Likely discontinue some of his chest tubes tomorrow morning.
--- NOTE | 2016-12-19 10:45 | XR ---
EXAMINATION TYPE: XR chest 1V DATE OF EXAM: 12/19/2016 10:21 AM COMPARISON: December 18, 2016 HISTORY: Pneumonia and status post triple bypass. TECHNIQUE: Single frontal view of the chest is obtained. FINDINGS: There is volume loss of the left lower lobe with elevation of the left hemidiaphragm and r etrocardiac airspace, persistent from the prior exam. Mediastinal drains, and postsurgical changes of the chest are unchanged from the prior exam. No evidence of pulmonary edema. Heart is again enlarged . Left thoracostomy tube is unchanged in position with no residual pneumothorax visualized. IMPRESSION: 1. Redemonstration of left lower lobe retrocardiac opacity, most likely representing left basilar ate lectasis as there are secondary signs of volume loss. 2. Left thoracostomy tube and mediastinal drains with no residual left pneumothorax visualized. 3. No evidence of pulmonary edema in this postsurgical patient.
--- NOTE | 2016-12-19 11:37 | PN ---
This patient is a 66-year-old male, seen, evaluated, examined. Clinically, patient is doing well. Patient, however, had an episode of severe anxiety and apprehension earlier this morning, was agitated. As per discussed with RN, the patient did receive a small dose of Ativan. Now he is more calm and comfortable. He is breathing comfortably. He continued to manifest significant chest tube leak on the left side. He has subcu emphysema. Chest x-ray not performed today. Hemodynamic status is stable. Otherwise last set of vitals include blood pressure is on 100/70, respiratory rate 20, pulse 80, temperature 98, saturation 97%. HEENT: Unremarkable. NECK: Supple. LUNGS: Good air entry bilaterally. HEART: Regular rate and rhythm. S1 and S2 audible. ABDOMEN: Soft. No rebound or rigidity. EXTREMITIES: +1 peripheral pulses. NEUROLOGICAL EXAMINATION: Awake and alert. Last chest x-ray perform yesterday reviewed and compared with prior x-ray. Other laboratory data reviewed. Labs are not performed. CBC is not performed today. Sodium is ( ) potassium 4.1. BUN and creatinine 25 and 0.81. IMPRESSION: 1. Acute hypoxic respiratory failure related to severe chronic obstructive pulmonary disease, emphysema. 2. Subcutaneous emphysema and mediastinal air leak. 3. Coronary artery disease, status post coronary artery bypass grafting. 4. Severe chronic obstructive pulmonary disease. 5. Dyslipidemia. 6. Coronary artery disease with severe cardiomyopathy and acute on chronic systolic dysfunction. PLAN: As above. Continue supportive care. We will check a chest x-ray today and order the labs. Further recommendations pending.
[2016-12-19 11:39] LABS: Glucose,Whole Blood 140 mg/dL (75-99)
--- NOTE | 2016-12-19 12:42 | PN ---
Known CAD, status post CABG, postop day #6. Feeling better, remains in sinus rhythm, free of symptoms. On aspirin, Lipitor, Plavix, Zestril, Lopressor. On exam, comfortable at rest. Vital signs are stable. There is no jugular venous distention. Chest exam reveals good air entry bilaterally. Heart exam reveals first and second heart sounds. No gallop. Exam of the extremities did not reveal edema. ASSESSMENT: Coronary artery disease, status post coronary artery bypass graft, making slow, but steady recovery. Reviewed his medications. Advised him to continue the same.
[2016-12-19] MEDS ORDERED: HEPARIN SODIUM,PORCINE 5,000 UNIT/ML 1 ML VIAL IV PRN (13:29)
[2016-12-19] MEDS ORDERED: HEPARIN SODIUM,PORCINE/D5W PMX 25,000 UNIT in DEXTROSE/WATER 1 500ML.BAG IV SCH (13:30)
[2016-12-19] MEDS ORDERED: HEPARIN SODIUM,PORCINE 5,000 UNIT/ML 1 ML VIAL IV ONE (13:45)
[2016-12-19] MEDS ORDERED: DEXTROSE 5% IN WATER 100 ML with AMIODARONE 150 MG IV ONE (14:00)
[2016-12-19] MEDS: LACTATED RINGERS 1,000 ML IV SCH (14:25)
[2016-12-19] MEDS: AMIODARONE 450 MG in DEXTROSE 5% IN WATER 250 ML IV SCH ×4 (14:32→23:57)
[2016-12-19 14:45] LABS: INR 1.2 (<1.1); Partial Thromboplastin Time 23.4 sec (22.0-30.0); Prothrombin Time 11.9 sec (9.0-12.0)
[2016-12-19 14:48] LABS: Basophils % (A) 0 %; CH 30.5; CHCM 32.2; Eosinophils # (A) 0.4 k/uL (0-0.7); Eosinophils % (A) 3 %; HDW 2.66; HGB 10.7 gm/dL (13.0-17.5); Luc # (Auto) 0.26; Luc % (Auto) 2; Lymphocytes # (A) 2.9 k/uL (1.0-4.8); Lymphocytes % (A) 19 %; MCH 30.9 pg (25.0-35.0); MCHC 32.5 g/dL (31.0-37.0); MCV 95.2 fL (80.0-100.0); Mean Platelet Volume 7.7; Monocytes # (A) 0.9 k/uL (0-1.0); Monocytes % (A) 6 %; Neutrophils # (A) 11.1 k/uL (1.3-7.7); Neutrophils % (A) 71 %; RBC 3.47 m/uL (4.30-5.90); RDW 13.7 % (11.5-15.5); WBC 15.5 k/uL (3.8-10.6); WBC (Perox) 16.78
[2016-12-19 16:48] LABS: Glucose,Whole Blood 168 mg/dL (75-99)
--- NOTE | 2016-12-19 18:45 | PN ---
DATE OF SERVICE: 12/18/2016 SUBJECTIVE: 66-year-old white male with CABG x3, chronic hypoxemic respiratory failure and breathing treatments left sided chest tube still in place. He is still mildly short of breath. He has a chronic tremor. It is normal for him. He says he has never had severe anxiety like he has in the last few days. He is currently on 3 liters O2 sat 94% pulse 90-98, temperature 98, respiratory 16 to 18, blood pressure is 100 to 110/60's to 70s. HEENT: Normocephalic, atraumatic. NECK: Supple. No mass or organomegaly. Lungs good air flow times four. HEART: Regular rate and rhythm. ABDOMEN: Soft. NEUROLOGIC: Alert and oriented x3. Chest x-ray shows atelectasis. Right sided chest tube. ASSESSMENT: 1. Status post coronary artery bypass grafting, chest tubes is still in place. 2. Chronic systolic heart failure. 3. Ischemic cardiomyopathy. 4. Chronic obstructive pulmonary disease. 5. Chronic tremor. PLAN: Continue current, try to wean him off the oxygen, wean him off chest tubes, Dr. Espinoza is following him postop. Continue pulmonary toilet. Monitor his electrolytes.
[2016-12-19 20:43] LABS: Glucose,Whole Blood 105 mg/dL (75-99)
[2016-12-19] MEDS: SENNOSIDES-DOCUSATE SODIUM 1 EACH TAB PO SCH (23:12)
[2016-12-20] MEDS: IPRATROPIUM-ALBUTEROL 3 ML NEB INHALATION PRN (00:13)
[2016-12-20 01:49] LABS: Glucose,Whole Blood 116 mg/dL (75-99)
[2016-12-20] MEDS: HYDROcodone/APAP 5-325MG 1 EACH TAB PO PRN ×2 (04:24→17:29)
[2016-12-20 06:00] LABS: Glucose,Whole Blood 129 mg/dL (75-99)
[2016-12-20 06:28] LABS: Basophils % (A) 0 %; CH 30.8; CHCM 32.6; Eosinophils # (A) 0.5 k/uL (0-0.7); Eosinophils % (A) 3 %; HCT 30.4 % (39.0-53.0); HDW 2.72; Luc # (Auto) 0.23; Luc % (Auto) 2; Lymphocytes # (A) 2.1 k/uL (1.0-4.8); Lymphocytes % (A) 15 %; MCH 31.1 pg (25.0-35.0); MCHC 32.8 g/dL (31.0-37.0); MCV 94.9 fL (80.0-100.0); Mean Platelet Volume 7.3; Monocytes # (A) 0.7 k/uL (0-1.0); Monocytes % (A) 5 %; Neutrophils # (A) 10.5 k/uL (1.3-7.7); Neutrophils % (A) 75 %; RDW 14.1 % (11.5-15.5); WBC (Perox) 13.78
[2016-12-20] MEDS: INSULIN LISPRO (humaLOG) 300 UNIT/3 ML VIAL SQ SCH ×4 (06:44→21:20)
--- NOTE | 2016-12-20 07:36 | PN ---
SUBJECTIVE: 66-year-old white male, status post CABG surgery, some anxiety, COPD, is improving, ( ) one chest tube hopefully today. Labs show a hemoglobin 10.7, white count 15.5. CARDIOVASCULAR: S1 and S2. LUNGS: Transmitted upper airway. HEMATOLOGIC: Negative Homans. PSYCHIATRIC: Fair mood and affect. ASSESSMENT: 1. Status post coronary artery bypass grafting. 2. Chronic obstructive pulmonary disease. 3. Leukocytosis. 4. Anemia. 5. Chronic tremor. 6. Air leak from chest tubes. 7. Asthma. Continue home therapy. PT, OT cholesterol, blood pressure medications, etc.
[2016-12-20] MEDS: BUDESONIDE 0.5 MG/2 ML NEBU INHALATION SCH ×2 (08:04→20:24)
[2016-12-20] MEDS: IPRATROPIUM-ALBUTEROL 3 ML NEB INHALATION SCH ×4 (08:04→20:24)
[2016-12-20] MEDS: AMIODARONE 450 MG in DEXTROSE 5% IN WATER 250 ML IV SCH ×2 (08:06)
[2016-12-20] MEDS: MUPIROCIN 2% OINT 22 GM TUBE NASAL SCH ×2 (08:07→21:18)
[2016-12-20] MEDS: ASPIRIN 325 MG TAB PO SCH (08:07)
[2016-12-20] MEDS: CLOPIDOGREL 75 MG TAB PO SCH (08:08)
[2016-12-20] MEDS: ATORVASTATIN 40 MG TAB PO SCH (08:08)
[2016-12-20] MEDS: METOPROLOL TARTRATE 25 MG TAB PO SCH ×2 (08:08→21:19)
[2016-12-20] MEDS: PANTOPRAZOLE 40 MG/10 ML VIAL IVP SCH (08:09)
[2016-12-20] MEDS: LISINOPRIL 5 MG TAB PO SCH (08:12)
--- NOTE | 2016-12-20 08:18 | P.PN ---
<Marianela Douglas - Last Filed: 12/20/16 08:06> Subjective Principal diagnosis: Coronary artery disease. POD #6 coronary artery bypass grafting 3 vessels, left internal mammary artery to the left anterior descending artery, saphenous vein graft to diagonal artery, saphenous vein graft to distal right coronary artery. Endoscopic vein harvest left greater saphenous vein. Epi-aortic ultrasound. Transesophageal echocardiogram. Fiberoptic bronchoscopy performed by Dr. Null. Patient currently sitting in bed in no apparent distress. Denies pain, states he got some sleep last night, feels better every day. Objective - Vital Signs Vital signs: Vital Signs Temp 97.5 F L 12/20/16 04:00 Pulse 88 12/20/16 04:00 Resp 20 12/20/16 04:00 BP 90/61 12/20/16 04:00 Pulse Ox 95 12/20/16 04:00 Intake & Output 12/19/16 12/20/16 12/20/16 18:59 06:59 18:59 Intake Total 840 679.416 Output Total 340 780 Balance 500 -100.584 Weight 95.8 kg Intake: Intake, IV Titration 479.416 Amount Amiodarone 450 mg In 259.000 Dextrose 5% in Water 250 ml @ 1 MG/MIN 34.53 mls/ hr IV .[id number] [facility] Rx#: [id number] Heparin Sodium,Porcine/ 220.416 D5w Pmx 25,000 unit In Dextrose/Water 1 500ml. bag @ 12 UNITS/KG/HR 23. 04 mls/hr IV .[id number] [facility] Rx#:[id number] Oral 840 200 Output: Chest Tube Drainage 40 230 Chest Tube Left 40 30 Chest Tube Right Pleural/ 0 200 Mediastinal Urine 300 550 Emesis 0 Other: Voiding Method Urinal Urinal # Voids 1 ABP, PAP, CO, CI - Last Documented Arterial Blood Pressure 108/63 Pulmonary Artery Pressure 52/19 Cardiac Output 7.8 Cardiac Index 3.7 - Constitutional General appearance: Present: cooperative, no acute distress - Respiratory Details: Lungs sounds diminished with wheezing throughout. Respirations even, nonlabored. Currently on 2 L nasal cannula. Only able to achieve 250 mL on incentive spirometry, however, he just woke up. Strong productive cough present. Mediastinal chest tubes to water seal, draining serosanguineous fluid , 200 mL in the last 12 hours, 240 mL in the last 24 hours. Left pleural chest tube to waterseal, draining serosanguineous fluid, 30 mL last 12 hours, 90 mL last 24 hours. - Cardiovascular Details: S1, S2 present. Regular rate and rhythm, currently sinus rhythm on telemetry. Did have atrial fibrillation overnight as well as yesterday. Chest stable. Heart hugger in place with patient demonstrating appropriate use. Teds, SCDs in place. Trace bilateral lower extremity edema still present. - Gastrointestinal Gastrointestinal Comment(s): Abdomen soft, nontender, nondistended. Active bowel sounds 4 quadrants. Positive bowel movement. Tolerating diet. - Genitourinary Genitourinary Comment(s): Voiding clear yellow urine per urinal. - Integumentary Integumentary Comment(s): Anterior chest incision covered with clean dry intact dressing. Left lower extremity EVH site well approximated. - Musculoskeletal Musculoskeletal Comment(s): Periodic ambulation in hallway with assistance 1. - Psychiatric Psychiatric: Present: A&O x's 3, appropriate affect, intact judgment & insight - Allied health notes Allied health notes reviewed: nursing - Labs CBC & Chem 7: 12/20/16 05:36 12/19/16 06:24 Labs: Abnormal Lab Results - Last 24 Hours (Table) 12/19/16 12/19/16 12/19/16 Range/Units 11:25 14:08 16:33 WBC 15.5 H (3.8-10.6) k/uL RBC 3.47 L (4.30-5.90) m/uL Hgb 10.7 L (13.0-17.5) gm/dL Hct 33.0 L (39.0-53.0) % Plt Count 148 L (150-450) k/uL Neutrophils # 11.1 H (1.3-7.7) k/uL APTT (22.0-30.0) sec POC Glucose (mg/dL) 140 H 168 H (75-99) mg/dL 12/19/16 12/19/16 12/20/16 Range/Units 19:26 20:41 01:48 WBC (3.8-10.6) k/uL RBC (4.30-5.90) m/uL Hgb (13.0-17.5) gm/dL Hct (39.0-53.0) % Plt Count (150-450) k/uL Neutrophils # (1.3-7.7) k/uL APTT 52.7 H (22.0-30.0) sec POC Glucose (mg/dL) 105 H 116 H (75-99) mg/dL 12/20/16 12/20/16 12/20/16 Range/Units 05:36 05:36 05:58 WBC 14.0 H (3.8-10.6) k/uL RBC 3.20 L (4.30-5.90) m/uL Hgb 10.0 L (13.0-17.5) gm/dL Hct 30.4 L (39.0-53.0) % Plt Count 142 L (150-450) k/uL Neutrophils # 10.5 H (1.3-7.7) k/uL APTT 45.1 H (22.0-30.0) sec POC Glucose (mg/dL) 129 H (75-99) mg/dL Assessment and Plan (1) NSTEMI (non-ST elevated myocardial infarction) Status: Acute (2) Coronary artery disease Status: Acute (3) Hyperlipemia Status: Acute (4) COPD (chronic obstructive pulmonary disease) Status: Acute (5) Anxiety Status: Acute Plan: 1. Continue aspirin, Lipitor, RIGOBERTO inhibitor. 2. DC amiodarone drip, amiodarone 400 mg twice a day ordered. 3. DC heparin drip, heparin 5000 units SQ every 8 hours ordered. 4. HIT antibody test ordered, negative. 5. Continue to encourage aggressive use of incentive spirometry, coughing using heart hugger. Continue DuoNeb updrafts per pulmonary. 6. GI/DVT prophylaxis 7. Increase activity, out of bed all day, ambulate in the hallway 3 times today , continue with physical therapy. 8. Wean O2 as tolerated. 9. More recommendations as patient progresses. Time with Patient: Greater than 30 <Elder Espinoza R - Last Filed: 12/20/16 10:18> Objective - Vital Signs Vital signs: Vital Signs Temp 97.5 F L 12/20/16 04:00 Pulse 80 12/20/16 08:23 Resp 20 12/20/16 04:00 BP 90/61 12/20/16 04:00 Pulse Ox 95 02/13/17 04:00 Intake & Output 12/19/16 12/20/16 12/20/16 18:59 06:59 18:59 Intake Total 840 679.416 362.669 Output Total 340 780 Balance 500 -100.584 362.669 Weight 95.8 kg Intake: Intake, IV Titration 479.416 140.669 Amount Amiodarone 450 mg In 259.000 140.669 Dextrose 5% in Water 250 ml @ 1 MG/MIN 34.53 mls/ hr IV .[id number] [facility] Rx#: [id number] Heparin Sodium,Porcine/ 220.416 D5w Pmx 25,000 unit In Dextrose/Water 1 500ml. bag @ 12 UNITS/KG/HR 23. 04 mls/hr IV .[id number] [facility] Rx#:[id number] Oral 840 200 222 Output: Chest Tube Drainage 40 230 Chest Tube Left 40 30 Chest Tube Right Pleural/ 0 200 Mediastinal Urine 300 550 Emesis 0 Other: Voiding Method Urinal Urinal # Voids 1 ABP, PAP, CO, CI - Last Documented Arterial Blood Pressure 108/63 Pulmonary Artery Pressure 52/19 Cardiac Output 7.8 Cardiac Index 3.7 - Labs CBC & Chem 7: 12/20/16 05:36 12/19/16 06:24 Labs: Abnormal Lab Results - Last 24 Hours (Table) 12/19/16 12/19/16 12/19/16 Range/Units 11:25 14:08 16:33 WBC 15.5 H (3.8-10.6) k/uL RBC 3.47 L (4.30-5.90) m/uL Hgb 10.7 L (13.0-17.5) gm/dL Hct 33.0 L (39.0-53.0) % Plt Count 148 L (150-450) k/uL Neutrophils # 11.1 H (1.3-7.7) k/uL APTT (22.0-30.0) sec POC Glucose (mg/dL) 140 H 168 H (75-99) mg/dL 12/19/16 12/19/16 12/20/16 Range/Units 19:26 20:41 01:48 WBC (3.8-10.6) k/uL RBC (4.30-5.90) m/uL Hgb (13.0-17.5) gm/dL Hct (39.0-53.0) % Plt Count (150-450) k/uL Neutrophils # (1.3-7.7) k/uL APTT 52.7 H (22.0-30.0) sec POC Glucose (mg/dL) 105 H 116 H (75-99) mg/dL 12/20/16 12/20/16 12/20/16 Range/Units 05:36 05:36 05:58 WBC 14.0 H (3.8-10.6) k/uL RBC 3.20 L (4.30-5.90) m/uL Hgb 10.0 L (13.0-17.5) gm/dL Hct 30.4 L (39.0-53.0) % Plt Count 142 L (150-450) k/uL Neutrophils # 10.5 H (1.3-7.7) k/uL APTT 45.1 H (22.0-30.0) sec POC Glucose (mg/dL) 129 H (75-99) mg/dL Assessment and Plan Plan: ADDENDUM: DC Left pleural CT today
--- NOTE | 2016-12-20 09:08 | XR ---
EXAMINATION TYPE: XR chest 1V portable DATE OF EXAM: 12/20/2016 9:02 AM HISTORY: Pleural drain. REFERENCE: Previous study dated 12/19/2016. FINDINGS: There has been no Sternotomy. A left pleural drain remains in place, unchanged in appearance. Mediastinal drain appears to been rem savage. The heart is enlarged. There is improved aeration at the left lung base. Some minimal residual atelec tasis persists. I suspect a tiny left effusion. Note is made of subcutaneous emphysema on the left. IMPRESSION: 1. POSTOPERATIVE CHANGE. 2. IMPROVED AERATION, LEFT LUNG BASE.
[2016-12-20] MEDS: AMIODARONE 200 MG TAB PO SCH ×2 (09:21→21:18)
[2016-12-20 11:24] LABS: Glucose,Whole Blood 111 mg/dL (75-99)
[2016-12-20] MEDS: LACTATED RINGERS 1,000 ML IV SCH (11:46)
--- NOTE | 2016-12-20 14:07 | P.PN ---
Subjective Principal diagnosis: Non-STEMI This is a 66-year-old gentleman who presented to [facility] with a non-ST elevation myocardial infarction. He was seen in consultation there by Dr. Regalado, cardiac catheterization was performed there which revealed two-vessel coronary artery disease and patient was transferred here, subsequently underwent coronary artery bypass grafting surgery. Patient was seen and examined this morning, blood pressure 126/70 with a heart rate in the 60s. He is currently in normal sinus rhythm, he had 2 separate episodes of atrial fibrillation which lasted one to 2 hours in duration each. He also had an episode of atrial fibrillation while in the intensive care unit. He was initiated on IV amiodarone last evening, once the PEG is finished we'll start oral amiodarone. IV heparin drip had also been initiated, this was discontinued this morning and patient was initiated on subcu heparin. Because of the recurrent episodes of atrial fibrillation, patient will need to be started on oral anticoagulation. We will change his subcu heparin over to subcu Lovenox. Patient still has his chest tubes in place, we will speak with cardiothoracic surgery regarding when to initiate oral anticoagulation. Chest x -ray performed today showed improvement in aeration to the left lung base. Patient has no complaints today. Breathing is overall stable. Objective - Vital Signs Vital signs: Vital Signs Temp 97.4 F L 12/20/16 08:00 Pulse 84 12/20/16 12:22 Resp 20 12/20/16 08:00 BP 126/77 12/20/16 08:00 Pulse Ox 99 12/20/16 11:00 Intake & Output 12/19/16 12/20/16 12/20/16 18:59 06:59 18:59 Intake Total 840 679.416 480.669 Output Total 340 780 0 Balance 500 -100.584 480.669 Weight 95.8 kg Intake: Intake, IV Titration 479.416 140.669 Amount Amiodarone 450 mg In 259.000 140.669 Dextrose 5% in Water 250 ml @ 1 MG/MIN 34.53 mls/ hr IV .Q7H31M [facility] Rx#: [id number] Heparin Sodium,Porcine/ 220.416 D5w Pmx 25,000 unit In Dextrose/Water 1 500ml. bag @ 12 UNITS/KG/HR 23. 04 mls/hr IV .[id number] [facility] Rx#:[id number] Oral 840 200 340 Output: Chest Tube Drainage 40 230 0 Chest Tube Left 40 30 0 Chest Tube Right Pleural/ 0 200 0 Mediastinal Urine 300 550 Emesis 0 Other: Voiding Method Urinal Urinal Urinal # Voids 1 ABP, PAP, CO, CI - Last Documented Arterial Blood Pressure 108/63 Pulmonary Artery Pressure 52/19 Cardiac Output 7.8 Cardiac Index 3.7 - Exam PHYSICAL EXAMINATION: HEENT: [Head is atraumatic, normocephalic. Pupils equal, round. Neck is supple. There is no elevated jugular venous pressure.] HEART EXAMINATION: [Heart S1, S2 normal. No murmur or gallop heard.] CHEST EXAMINATION: Lungs reveal some coarse wheezing bilaterally entry to bilateral bases. ABDOMEN: [ Soft, nontender. Bowel sounds are heard. No organomegaly noted]. EXTREMITIES:[ 2+ peripheral pulses with no evidence of peripheral edema and no calf tenderness noted]. NEUROLOGIC [patient is awake, alert and oriented -3.] . - Labs CBC & Chem 7: 12/20/16 05:36 12/19/16 06:24 Labs: Abnormal Lab Results - Last 24 Hours (Table) 12/19/16 12/19/16 12/19/16 Range/Units 14:08 16:33 19:26 WBC 15.5 H (3.8-10.6) k/uL RBC 3.47 L (4.30-5.90) m/uL Hgb 10.7 L (13.0-17.5) gm/dL Hct 33.0 L (39.0-53.0) % Plt Count 148 L (150-450) k/uL Neutrophils # 11.1 H (1.3-7.7) k/uL APTT 52.7 H (22.0-30.0) sec POC Glucose (mg/dL) 168 H (75-99) mg/dL 12/19/16 12/20/16 12/20/16 Range/Units 20:41 01:48 05:36 WBC 14.0 H (3.8-10.6) k/uL RBC 3.20 L (4.30-5.90) m/uL Hgb 10.0 L (13.0-17.5) gm/dL Hct 30.4 L (39.0-53.0) % Plt Count 142 L (150-450) k/uL Neutrophils # 10.5 H (1.3-7.7) k/uL APTT (22.0-30.0) sec POC Glucose (mg/dL) 105 H 116 H (75-99) mg/dL 12/20/16 12/20/16 12/20/16 Range/Units 05:36 05:58 11:21 WBC (3.8-10.6) k/uL RBC (4.30-5.90) m/uL Hgb (13.0-17.5) gm/dL Hct (39.0-53.0) % Plt Count (150-450) k/uL Neutrophils # (1.3-7.7) k/uL APTT 45.1 H (22.0-30.0) sec POC Glucose (mg/dL) 129 H 111 H (75-99) mg/dL Assessment and Plan (1) NSTEMI (non-ST elevated myocardial infarction) Status: Acute (2) S/P cardiac cath Status: Acute (3) COPD (chronic obstructive pulmonary disease) Status: Acute (4) Hyperlipemia Status: Acute (5) S/P CABG (coronary artery bypass graft) Status: Acute Plan: Patient is currently on aspirin 325 mg daily, Lipitor 40 milligrams daily, metoprolol tartrate 5 mg one tablet by mouth 3 times a day, Plavix 75 mg daily, heparin subcu every 8 hourly, and amiodarone drip. We will discontinue the subcu heparin and start the patient on Lovenox 90 mg subcu twice a day. Patient continues to have chest tube in place, once this is removed we'll initiate oral anticoagulation. When the amiodarone drip has infuse, we will start the patient on 400 mg by mouth twice a day. DNP note has been reviewed, I agree with a documented findings and plan of care. Patient was seen and examined.
[2016-12-20] MEDS: ENOXAPARIN 100 MG/ML SYRINGE SQ SCH ×2 (15:37→21:18)
[2016-12-20] MEDS ORDERED: HEPARIN SODIUM,PORCINE 5,000 UNIT/ML 1 ML VIAL SQ SCH (16:00)
[2016-12-20 16:33] LABS: Glucose,Whole Blood 114 mg/dL (75-99)
--- NOTE | 2016-12-20 17:32 | P.PN ---
Subjective 66-year-old male being seen by the attending this morning. Patient is postop day 6 coronary artery bypass grafting times 3 vessels. Currently is sitting up in a chair denying shortness of breath. Objective - Vital Signs Vital signs: Vital Signs Temp 97.6 F 12/20/16 12:00 Pulse 80 12/20/16 16:26 Resp 20 12/20/16 12:00 BP 98/62 12/20/16 12:00 Pulse Ox 99 12/20/16 12:00 Intake & Output 12/19/16 12/20/16 12/20/16 18:59 06:59 18:59 Intake Total 840 679.416 480.669 Output Total 340 780 0 Balance 500 -100.584 480.669 Weight 95.8 kg Intake: Intake, IV Titration 479.416 140.669 Amount Amiodarone 450 mg In 259.000 140.669 Dextrose 5% in Water 250 ml @ 1 MG/MIN 34.53 mls/ hr IV .Q7H31M [facility] Rx#: [id number] Heparin Sodium,Porcine/ 220.416 D5w Pmx 25,000 unit In Dextrose/Water 1 500ml. bag @ 12 UNITS/KG/HR 23. 04 mls/hr IV .[id number] [facility] Rx#:[id number] Oral 840 200 340 Output: Chest Tube Drainage 40 230 0 Chest Tube Left 40 30 0 Chest Tube Right Pleural/ 0 200 0 Mediastinal Urine 300 550 Emesis 0 Other: Voiding Method Urinal Urinal Urinal # Voids 1 ABP, PAP, CO, CI - Last Documented Arterial Blood Pressure 108/63 Pulmonary Artery Pressure 52/19 Cardiac Output 7.8 Cardiac Index 3.7 - Exam Physical exam 66-year-old woman sitting up in a chair does not appear in any acute distress cooperative Lungs diminished at the bases with audible wheezing throughout currently on 2 L nasal cannula keeping a sat greater than 90%. Needs much encouragement to use the incentive spirometer poor technique and only achieved 250 Heart S1-S2 audible regular currently the monitor showing sinus rhythm. Did have an episode of atrial fibrillation yesterday evening nonsense Abdomen soft nontender Extremities no edema noted - Labs CBC & Chem 7: 12/20/16 05:36 12/19/16 06:24 Labs: Abnormal Lab Results - Last 24 Hours (Table) 02/10/2312/19/16 12/20/16 Range/Units 19:26 20:41 01:48 WBC (3.8-10.6) k/uL RBC (4.30-5.90) m/uL Hgb (13.0-17.5) gm/dL Hct (39.0-53.0) % Plt Count (150-450) k/uL Neutrophils # (1.3-7.7) k/uL APTT 52.7 H (22.0-30.0) sec POC Glucose (mg/dL) 105 H 116 H (75-99) mg/dL 12/20/16 12/20/16 12/20/16 Range/Units 05:36 05:36 05:58 WBC 14.0 H (3.8-10.6) k/uL RBC 3.20 L (4.30-5.90) m/uL Hgb 10.0 L (13.0-17.5) gm/dL Hct 30.4 L (39.0-53.0) % Plt Count 142 L (150-450) k/uL Neutrophils # 10.5 H (1.3-7.7) k/uL APTT 45.1 H (22.0-30.0) sec POC Glucose (mg/dL) 129 H (75-99) mg/dL 12/20/16 12/20/16 Range/Units 11:21 16:31 WBC (3.8-10.6) k/uL RBC (4.30-5.90) m/uL Hgb (13.0-17.5) gm/dL Hct (39.0-53.0) % Plt Count (150-450) k/uL Neutrophils # (1.3-7.7) k/uL APTT (22.0-30.0) sec POC Glucose (mg/dL) 111 H 114 H (75-99) mg/dL Assessment and Plan Plan: Impression Non-ST elevated [place] Status post heart catheterization showing two-vessel coronary artery occlusive disease Hyperlipidemia COPD EF 45-50% with severe hypokinesis in the basal inferior wall per echo Current every day smoker Anxiety disorder nonspecified Episode of paroxysmal atrial fibrillation currently sinus Status post coronary artery bypass grafting 3 vessels postop day 6 Plan Encourage the use of the incentive spirometer Continue postop surgical care per cardiovascular surgery's recommendations Repeat the labs in the morning Monitor blood pressure and heart rate adjust antihypertensive meds if indicated Patient's been advised to stop smoking cigarettes The above dictated assessment and findings were discussed with dr anders Taylor and the plan of care have been dictated as directed. Jerica Lima nurse practitioner acting as a scribe for dr gonzáles
--- NOTE | 2016-12-20 18:01 | PN ---
This was seen, evaluated, examined. The patient is a 66-year-old with problems associated with diffuse coronary artery disease and acute on chronic hypoxic respiratory failure related to severe chronic obstructive pulmonary disease, emphysema. The patient has some air leak, intermittent, still present mediastinal tube, his mental status more stable and he is breathing more comfortably. Denies any chest pain. He has been on breathing treatments. His Amidarone has been IV which is being switched to oral. His last set of vitals include blood pressure is 126/77, respiratory rate 16 to 18, heart rate 90, temperature 98, saturation 95% to 96%. HEENT: Unremarkable. NECK: Supple. LUNGS: Good air entry bilaterally with expiratory rhonchi. HEART: Regular rate and rhythm. ABDOMEN: Soft. NEUROLOGICAL EXAMINATION: Otherwise, awake, alert. Labs reviewed. Medications reviewed. Today's x-ray reviewed as well. Continue to manifest the subcutaneous emphysema, however, left lung atelectasis has significantly improved. IMPRESSION: 1. Severe chronic obstructive pulmonary disease, emphysema and acute on chronic hypoxic respiratory failure related to that. 2. Coronary artery disease, status post coronary artery bypass grafting times three. 3. Chronic persistent asthma. 4. Likely pneumothorax on the left side with intermittent air leak. The patient still has chest tubes, which are draining ( ) especially on the mediastinal side. 5. Dyslipidemia. 6. Hypertension. 7. Left lower lobe atelectasis and small effusion. Continue deep breathing and incentive spirometry. Continue supportive care. Maintain the chest tube for now. We will follow.
[2016-12-20 20:30] LABS: Glucose,Whole Blood 122 mg/dL (75-99)
[2016-12-20] MEDS: SENNOSIDES-DOCUSATE SODIUM 1 EACH TAB PO SCH (21:19)
[2016-12-21] MEDS: ALPRAZolam 0.25 MG TAB PO PRN ×2 (00:46→19:50)
[2016-12-21 01:51] LABS: Glucose,Whole Blood 96 mg/dL (75-99)
[2016-12-21] MEDS: HYDROcodone/APAP 5-325MG 1 EACH TAB PO PRN ×3 (03:53→21:20)
[2016-12-21] MEDS: IPRATROPIUM-ALBUTEROL 3 ML NEB INHALATION PRN (04:23)
[2016-12-21 05:51] LABS: Glucose,Whole Blood 105 mg/dL (75-99)
[2016-12-21] MEDS: INSULIN LISPRO (humaLOG) 300 UNIT/3 ML VIAL SQ SCH ×4 (06:42→21:03)
[2016-12-21 06:46] LABS: Basophils % (A) 0 %; CH 31.1; Eosinophils # (A) 0.4 k/uL (0-0.7); Eosinophils % (A) 3 %; HCT 29.6 % (39.0-53.0); HDW 2.79; HGB 9.5 gm/dL (13.0-17.5); Luc # (Auto) 0.12; Luc % (Auto) 1; Lymphocytes # (A) 1.8 k/uL (1.0-4.8); Lymphocytes % (A) 12 %; MCH 30.4 pg (25.0-35.0); MCV 94.9 fL (80.0-100.0); Mean Platelet Volume 8.6; Monocytes # (A) 0.8 k/uL (0-1.0); Monocytes % (A) 5 %; Neutrophils % (A) 80 %; RBC 3.12 m/uL (4.30-5.90); RDW 14.3 % (11.5-15.5); WBC 15.1 k/uL (3.8-10.6); WBC (Perox) 15.53
[2016-12-21 06:58] LABS: Anion Gap 8 mmol/L; Blood Urea Nitrogen 16 mg/dL (9-20); Calcium 7.5 mg/dL (8.4-10.2); Carbon Dioxide 27 mmol/L (22-30); Chloride 103 mmol/L (98-107); Glucose 91 mg/dL (74-99); Non-African American GFR(MDRD) >60 (>60 ml/min/1.73 sqM); Potassium 4.2 mmol/L (3.5-5.1); Sodium 138 mmol/L (137-145)
[2016-12-21] MEDS ORDERED: ZOLPIDEM 5 MG TAB PO PRN (07:06)
--- NOTE | 2016-12-21 07:34 | XR ---
EXAMINATION TYPE: XR chest 1V portable DATE OF EXAM: 12/21/2016 7:29 AM CLINICAL HISTORY: Difficulty breathing and chest tube progress study. TECHNIQUE: Single AP portable upright view of the chest is obtained. COMPARISON: Chest x-ray from one day earlier FINDINGS: A left sided chest tube is redemonstrated. Post CABG changes with mediastinal clips and st ernal wires is again seen. There is chronic parenchymal change with persistent left basilar infiltrat e and/or atelectasis. There is developing right basilar opacity consistent with infiltrate and/or ate lectasis. Upper lungs are clear without pneumothorax seen bilaterally. Small bilateral pleural effusi ons are likely present and is stable. There is stable mild cardiomegaly. Osseous structures are intac t. IMPRESSION: There is persistent left-sided chest tube with probable small bilateral pleural effusions and patchy left basilar atelectasis and/or infiltrate all redemonstrated. New patchy right basilar i nfiltrate and/or atelectasis is noted.
--- NOTE | 2016-12-21 07:36 | P.PN ---
Subjective Principal diagnosis: Coronary artery disease. POD #7 coronary artery bypass grafting 3 vessels, left internal mammary artery to the left anterior descending artery, saphenous vein graft to diagonal artery, saphenous vein graft to distal right coronary artery. Endoscopic vein harvest left greater saphenous vein. Epi-aortic ultrasound. Transesophageal echocardiogram. Fiberoptic bronchoscopy performed by Dr. Null. Patient currently sitting in bed in no apparent distress. Denies pain, states he had a rough night last night. Objective - Vital Signs Vital signs: Vital Signs Temp 97.6 F 12/21/16 04:00 Pulse 80 12/21/16 04:28 Resp 20 12/21/16 04:00 BP 146/62 12/21/16 04:00 Pulse Ox 94 L 12/21/16 04:00 Intake & Output 12/20/16 12/21/16 12/21/16 18:59 06:59 18:59 Intake Total 480.669 240 Output Total 104 570 Balance 376.669 -330 Weight 95.3 kg Intake: Intake, IV Titration 140.669 Amount Amiodarone 450 mg In 140.669 Dextrose 5% in Water 250 ml @ 1 MG/MIN 34.53 mls/ hr IV .Q7H31M [facility] Rx#: [id number] Oral 340 240 Output: Chest Tube Drainage 104 130 Chest Tube Left 70 70 Chest Tube Right Pleural/ 34 60 Mediastinal Urine 440 Other: Voiding Method Urinal Urinal # Voids 1 ABP, PAP, CO, CI - Last Documented Arterial Blood Pressure 108/63 Pulmonary Artery Pressure 52/19 Cardiac Output 7.8 Cardiac Index 3.7 - Constitutional General appearance: Present: cooperative, no acute distress - Respiratory Details: Lungs sounds diminished with continued wheezing throughout, respirations even, nonlabored. Currently on 3 L nasal cannula. Mediastinal chest tube to waterseal, draining serosanguineous fluid, 94 mL in the last 12 hours, 294 mL the last 24 hours. Left pleural chest tube to waterseal, draining serosanguineous fluid, 140 mL last 12 hours, 170 mL last 24 hours. No air leak at this time. Patient is still only able to achieve 250-500 mL on his incentive spirometer. - Cardiovascular Details: S1, S2 present. Regular rate, irregular rhythm, sinus rhythm with PVCs on telemetry. Had episodes of accelerated junctional rhythm last night on telemetry. Chest stable. Heart hugger in place with patient demonstrating appropriate use. Teds, SCDs in place. Trace bilateral lower extremity edema present. - Gastrointestinal Gastrointestinal Comment(s): Abdomen soft, nontender, nondistended. Active bowel sounds 4 quadrants. Tolerating diet. - Genitourinary Genitourinary Comment(s): Patient voiding per urinal. - Integumentary Integumentary Comment(s): Anterior chest covered with dry intact dressing. Left lower 70 EVH site well approximated. - Musculoskeletal Musculoskeletal: Present: generalized weakness - Psychiatric Psychiatric: Present: A&O x's 3 - Allied health notes Allied health notes reviewed: nursing - Labs CBC & Chem 7: 12/21/16 06:01 12/21/16 06:01 Labs: Abnormal Lab Results - Last 24 Hours (Table) 12/20/16 12/20/16 12/20/16 Range/Units 11:21 16:31 20:29 WBC (3.8-10.6) k/uL RBC (4.30-5.90) m/uL Hgb (13.0-17.5) gm/dL Hct (39.0-53.0) % Neutrophils # (1.3-7.7) k/uL POC Glucose (mg/dL) 111 H 114 H 122 H (75-99) mg/dL Calcium (8.4-10.2) mg/dL 12/21/16 12/21/16 12/21/16 Range/Units 05:50 06:01 06:01 WBC 15.1 H (3.8-10.6) k/uL RBC 3.12 L (4.30-5.90) m/uL Hgb 9.5 L (13.0-17.5) gm/dL Hct 29.6 L (39.0-53.0) % Neutrophils # 12.0 H (1.3-7.7) k/uL POC Glucose (mg/dL) 105 H (75-99) mg/dL Calcium 7.5 L (8.4-10.2) mg/dL - Imaging and Cardiology Chest x-ray: image reviewed Assessment and Plan (1) NSTEMI (non-ST elevated myocardial infarction) Status: Acute (2) Coronary artery disease Status: Acute (3) Hyperlipemia Status: Acute (4) COPD (chronic obstructive pulmonary disease) Status: Acute (5) Anxiety Status: Acute Plan: 1. Continue aspirin, Lipitor, RIGOBERTO inhibitor. 2. Continue Amiodarone for A. fib prophylaxis. 3. Lovenox ordered per cardiology. 4. HIT antibody test ordered, negative. 5. Continue to encourage aggressive use of incentive spirometry, coughing using heart hugger. Continue DuoNeb updrafts per pulmonary. 6. GI/DVT prophylaxis 7. Increase activity, out of bed all day, ambulate in the hallway 3 times today , continue with physical therapy. 8. Wean O2 as tolerated. 9. Will DC chest tubes today. 10. Will transfer to rehab soon. Time with Patient: Greater than 30
[2016-12-21] MEDS: BUDESONIDE 0.5 MG/2 ML NEBU INHALATION SCH ×2 (07:46→20:23)
[2016-12-21] MEDS: IPRATROPIUM-ALBUTEROL 3 ML NEB INHALATION SCH ×4 (07:46→20:23)
[2016-12-21] MEDS: METOPROLOL TARTRATE 25 MG TAB PO SCH ×3 (08:15→19:50)
[2016-12-21] MEDS: CLOPIDOGREL 75 MG TAB PO SCH (08:16)
[2016-12-21] MEDS: ATORVASTATIN 40 MG TAB PO SCH (08:16)
[2016-12-21] MEDS: LISINOPRIL 5 MG TAB PO SCH (08:16)
[2016-12-21] MEDS: AMIODARONE 200 MG TAB PO SCH ×2 (08:16→19:50)
[2016-12-21] MEDS: MUPIROCIN 2% OINT 22 GM TUBE NASAL SCH ×2 (08:17→19:50)
[2016-12-21] MEDS: PANTOPRAZOLE 40 MG/10 ML VIAL IVP SCH (08:17)
[2016-12-21] MEDS: ENOXAPARIN 100 MG/ML SYRINGE SQ SCH ×2 (08:17→19:51)
[2016-12-21] MEDS ORDERED: ASPIRIN 81 MG CHEW PO SCH (09:00)
[2016-12-21] MEDS: ASPIRIN 325 MG TAB PO SCH (11:26)
[2016-12-21 11:44] LABS: Glucose,Whole Blood 116 mg/dL (75-99)
[2016-12-21] MEDS: LACTATED RINGERS 1,000 ML IV SCH (12:14)
--- NOTE | 2016-12-21 12:18 | P.PN ---
Subjective Principal diagnosis: Non-STEMI This is a 66-year-old gentleman who presented to [facility] with a non-ST elevation myocardial infarction. He was seen in consultation there by Dr. Regalado, cardiac catheterization was performed there which revealed two-vessel coronary artery disease and patient was transferred here, subsequently underwent coronary artery bypass grafting surgery. Patient was seen and examined this morning, blood pressure 135/84 with a heart rate in the 90s. He is currently in normal sinus rhythm, he had 2-3 separate episodes of atrial fibrillation which lasted one to 2 hours in duration each. He also had an episode of atrial fibrillation while in the intensive care unit. He was initiated on IV amiodarone last evening, once the PEG is finished we'll start oral amiodarone. IV heparin drip had also been initiated, this was discontinued this morning and patient was initiated on subcu heparin. Because of the recurrent episodes of atrial fibrillation, patient will need to be started on oral anticoagulation. He is currently on Lovenox , we will check to see if he has coverage for one of the newer anticoagulants, if so this will be initiated. Objective - Vital Signs Vital signs: Vital Signs Temp 96.7 F L 12/21/16 08:00 Pulse 96 12/21/16 12:09 Resp 18 12/21/16 08:00 BP 135/84 12/21/16 08:00 Pulse Ox 94 L 12/21/16 08:00 Intake & Output 12/20/16 12/21/16 12/21/16 18:59 06:59 18:59 Intake Total 480.669 240 118 Output Total 104 570 150 Balance 376.669 -330 -32 Weight 95.3 kg Intake: Intake, IV Titration 140.669 Amount Amiodarone 450 mg In 140.669 Dextrose 5% in Water 250 ml @ 1 MG/MIN 34.53 mls/ hr IV .[id number] [facility] Rx#: [id number] Oral 340 240 118 Output: Chest Tube Drainage 104 130 0 Chest Tube Left 70 70 0 Chest Tube Right Pleural/ 34 60 0 Mediastinal Urine 440 150 Other: Voiding Method Urinal Urinal Urinal # Voids 1 ABP, PAP, CO, CI - Last Documented Arterial Blood Pressure 108/63 Pulmonary Artery Pressure 52/19 Cardiac Output 7.8 Cardiac Index 3.7 - Exam PHYSICAL EXAMINATION: HEENT: [Head is atraumatic, normocephalic. Pupils equal, round. Neck is supple. There is no elevated jugular venous pressure.] HEART EXAMINATION: [Heart S1, S2 normal. No murmur or gallop heard.] CHEST EXAMINATION: Lungs reveal some coarse wheezing bilaterally entry to bilateral bases. ABDOMEN: [ Soft, nontender. Bowel sounds are heard. No organomegaly noted]. EXTREMITIES:[ 2+ peripheral pulses with no evidence of peripheral edema and no calf tenderness noted]. NEUROLOGIC [patient is awake, alert and oriented -3.] . - Labs CBC & Chem 7: 12/21/16 06:01 12/21/16 06:01 Labs: Abnormal Lab Results - Last 24 Hours (Table) 12/20/16 12/20/16 12/21/16 Range/Units 16:31 20:29 05:50 WBC (3.8-10.6) k/uL RBC (4.30-5.90) m/uL Hgb (13.0-17.5) gm/dL Hct (39.0-53.0) % Neutrophils # (1.3-7.7) k/uL POC Glucose (mg/dL) 114 H 122 H 105 H (75-99) mg/dL Calcium (8.4-10.2) mg/dL 12/21/16 12/21/16 12/21/16 Range/Units 06:01 06:01 11:40 WBC 15.1 H (3.8-10.6) k/uL RBC 3.12 L (4.30-5.90) m/uL Hgb 9.5 L (13.0-17.5) gm/dL Hct 29.6 L (39.0-53.0) % Neutrophils # 12.0 H (1.3-7.7) k/uL POC Glucose (mg/dL) 116 H (75-99) mg/dL Calcium 7.5 L (8.4-10.2) mg/dL Assessment and Plan (1) NSTEMI (non-ST elevated myocardial infarction) Status: Acute (2) S/P cardiac cath Status: Acute (3) COPD (chronic obstructive pulmonary disease) Status: Acute (4) Hyperlipemia Status: Acute (5) S/P CABG (coronary artery bypass graft) Status: Acute (6) Paroxysmal a-fib Status: Acute Plan: Patient is currently on aspirin 325 mg daily, Lipitor 40 milligrams daily, metoprolol tartrate 25 mg one tablet by mouth 3 times a day, Plavix 75 mg daily , Lovenox 90 mg subcu twice a day, amiodarone 400 mg twice a day. Continue Lovenox, check to see if patient has coverage for one of the newer anticoagulants. DNP note has been reviewed, I agree with a documented findings and plan of care. Patient was seen and examined.
[2016-12-21 16:43] LABS: Glucose,Whole Blood 206 mg/dL (75-99)
[2016-12-21] MEDS: SENNOSIDES-DOCUSATE SODIUM 1 EACH TAB PO SCH (19:50)
[2016-12-21 20:33] LABS: Glucose,Whole Blood 408 mg/dL (75-99)
[2016-12-21] MEDS: FUROSEMIDE 10 MG/ML 4 ML VIAL IV SCH (21:49)
[2016-12-22 01:49] LABS: Glucose,Whole Blood 59 mg/dL (75-99)
[2016-12-22 02:13] LABS: Glucose,Whole Blood 63 mg/dL (75-99)
[2016-12-22 02:46] LABS: Glucose,Whole Blood 89 mg/dL (75-99)
[2016-12-22] MEDS: HYDROcodone/APAP 5-325MG 1 EACH TAB PO PRN ×4 (02:58→21:09)
[2016-12-22] MEDS: IPRATROPIUM-ALBUTEROL 3 ML NEB INHALATION PRN (03:36)
[2016-12-22 05:42] LABS: Glucose,Whole Blood 119 mg/dL (75-99)
[2016-12-22] MEDS: INSULIN LISPRO (humaLOG) 300 UNIT/3 ML VIAL SQ SCH ×4 (06:15→22:02)
[2016-12-22 06:37] LABS: Basophils % (A) 0 %; CH 30.8; CHCM 32.7; Eosinophils % (A) 0 %; HDW 2.82; Luc # (Auto) 0.21; Luc % (Auto) 1; Lymphocytes # (A) 1.6 k/uL (1.0-4.8); Lymphocytes % (A) 7 %; MCH 30.6 pg (25.0-35.0); MCHC 32.3 g/dL (31.0-37.0); MCV 94.7 fL (80.0-100.0); Mean Platelet Volume 7.2; Monocytes # (A) 0.8 k/uL (0-1.0); Monocytes % (A) 3 %; Neutrophils # (A) 21.2 k/uL (1.3-7.7); Neutrophils % (A) 89 %; RBC 3.27 m/uL (4.30-5.90); RDW 14.6 % (11.5-15.5); WBC 23.9 k/uL (3.8-10.6)
--- NOTE | 2016-12-22 07:43 | PN ---
DATE OF SERVICE: 12/21/2016 Mr. Mendoza is seen, evaluated, and examined. He still has a left-sided mediastinal chest tube, air leak has been very minimal. He is awake and alert, breathing comfortably. His severe shortness of breath is slightly stable and improved. He is status post CABG x3 for cardiomyopathy and ischemic in nature and coronary artery disease. He has some A. fib, which is now relatively more stable. His blood pressure is 117/67, respiration 20, pulse 79, temperature is 97.4. HEENT EXAMINATION: Otherwise unremarkable. NECK: Supple. LUNGS: Good air entry bilaterally. HEART: Regular rate and rhythm. ABDOMEN: Soft. No rebound or rigidity. EXTREMITIES: +1 peripheral pulses, subQ emphysema is slightly better now. Labs are reviewed. Medications reviewed as well. White cell count is 15,000, hemoglobin less than 9.5, hematocrit 29, platelet count of 163,000. Chemistry reviewed, within normal limit. The chest x-ray performed earlier today reviewed and compared with the prior x-ray revealed stable chest tube and small left-sided pleural effusion and basilar atelectasis. IMPRESSION: 1. Acute on chronic hypoxic respiratory failure related to severe chronic obstructive pulmonary disease. 2. Chronic persistent asthma. 3. Coronary artery disease, status post coronary artery bypass graft. 4. Postoperative atrial fibrillation. 5. History of dyslipidemia, hypertension. 6. Subcutaneous emphysema and some intermittent drainage from the mediastinal chest tube which is stabilizing. Intermittent drainage of air from the chest tube is stabilizing. 7. Left lower lobe atelectasis with small effusion. Plan includes a continuation of supportive care. Continue deep breathing exercise, incentive spirometry. Continue oxygen. Maintain chest tube. Continue breathing treatments. Increase activity as tolerated. Will follow clinical course closely in case if patient develops spiking fever, recommend antibiotics. Will follow for now.
--- NOTE | 2016-12-22 08:22 | XR ---
EXAMINATION TYPE: XR chest 1V portable DATE OF EXAM: 12/22/2016 8:04 AM CLINICAL HISTORY: Difficulty breathing progress study. Left-sided chest tube placement. TECHNIQUE: Single AP portable upright view of the chest is obtained. COMPARISON: Chest x-ray from one day earlier FINDINGS: There is left lateral chest tube redemonstrated. Sternal wires and mediastinal clips are a gain seen. There is stable mild cardiomegaly. There is chronic parenchymal change without suspicious new focal airspace opacity, pleural effusion, or pneumothorax seen bilaterally. Subcutaneous emphysem a left lower lateral chest wall and supraclavicular region is redemonstrated. There is patchy left ba silar atelectasis and/or infiltrate again seen. Right lung appears clear on current study, improved a eration basilar region noted. No pneumothorax is evident bilaterally. IMPRESSION: Left sided chest tube without sizable pneumothorax. Cardiomegaly and chronic parenchymal change with persistent patchy left basilar atelectasis and/or infiltrate all redemonstrated. Improved aeration right lung base noted.
[2016-12-22] MEDS: IPRATROPIUM-ALBUTEROL 3 ML NEB INHALATION SCH ×4 (08:47→19:57)
[2016-12-22] MEDS: BUDESONIDE 0.5 MG/2 ML NEBU INHALATION SCH ×2 (08:47→19:57)
[2016-12-22] MEDS: CLOPIDOGREL 75 MG TAB PO SCH (08:54)
[2016-12-22] MEDS: ENOXAPARIN 100 MG/ML SYRINGE SQ SCH (08:54)
[2016-12-22] MEDS: AMIODARONE 200 MG TAB PO SCH ×2 (08:54→21:07)
[2016-12-22] MEDS: ASPIRIN 325 MG TAB PO SCH (08:54)
[2016-12-22] MEDS: ATORVASTATIN 40 MG TAB PO SCH (08:54)
[2016-12-22] MEDS: PANTOPRAZOLE 40 MG/10 ML VIAL IVP SCH (08:55)
[2016-12-22] MEDS: LISINOPRIL 5 MG TAB PO SCH (08:55)
[2016-12-22] MEDS: FUROSEMIDE 10 MG/ML 4 ML VIAL IV SCH ×2 (08:55→21:07)
[2016-12-22] MEDS: METOPROLOL TARTRATE 25 MG TAB PO SCH (08:55)
[2016-12-22] MEDS: MUPIROCIN 2% OINT 22 GM TUBE NASAL SCH ×2 (08:55→21:09)
--- NOTE | 2016-12-22 09:51 | P.PN ---
<Marianela Douglas - Last Filed: 12/22/16 09:51> Subjective Principal diagnosis: Coronary artery disease. POD #8 coronary artery bypass grafting 3 vessels, left internal mammary artery to the left anterior descending artery, saphenous vein graft to diagonal artery, saphenous vein graft to distal right coronary artery. Endoscopic vein harvest left greater saphenous vein. Epi-aortic ultrasound. Transesophageal echocardiogram. Fiberoptic bronchoscopy performed by Dr. Null. Patient currently sitting in chair in no apparent distress. Denies pain, states he feels better this morning. Objective - Vital Signs Vital signs: Vital Signs Temp 97.7 F 12/22/16 04:00 Pulse 88 12/22/16 04:00 Resp 18 12/22/16 04:00 BP 135/72 12/22/16 04:00 Pulse Ox 100 12/22/16 04:00 Intake & Output 12/21/16 12/22/16 12/22/16 18:59 06:59 18:59 Intake Total 218 300 Output Total 150 1270 Balance 68 -970 Weight 94 kg Intake: Oral 218 300 Output: Chest Tube Drainage 0 20 Chest Tube Left 0 20 Chest Tube Right Pleural/ 0 Mediastinal Urine 150 1250 Other: Voiding Method Urinal Urinal # Voids 4 ABP, PAP, CO, CI - Last Documented Arterial Blood Pressure 108/63 Pulmonary Artery Pressure 52/19 Cardiac Output 7.8 Cardiac Index 3.7 - Constitutional General appearance: Present: cooperative, no acute distress - Respiratory Details: Lungs sounds diminished with wheezing throughout. Respirations even and nonlabored. Currently on 4 L nasal cannula. Left pleural chest tube to waterseal draining serous fluid, 20 mL in the last 12 hours, 40 mL the last 24 hours. No air leak present. - Cardiovascular Details: S1, S2 present. Regular rate and rhythm, sinus rhythm on telemetry. Chest stable. Heart hugger in place with patient demonstrating appropriate use. Trace bilateral lower extremity edema present. Teds, SCDs in place. - Gastrointestinal Gastrointestinal Comment(s): Abdomen soft, nontender, nondistended. Active bowel sounds 4 quadrants. Tolerating diet. Last bowel movement 2 days ago. - Genitourinary Genitourinary Comment(s): Patient continues to void clear yellow urine per urinal. - Integumentary Integumentary Comment(s): Anterior chest wall incision covered with dry intact dressing. Left lower extremity EVH site well approximated. - Musculoskeletal Musculoskeletal Comment(s): Able to cannulate hallway with assistance 1, but only a minimal distance. - Psychiatric Psychiatric: Present: A&O x's 3, appropriate affect, intact judgment & insight - Allied health notes Allied health notes reviewed: case management - Labs CBC & Chem 7: 12/22/16 05:55 12/21/16 06:01 Labs: Abnormal Lab Results - Last 24 Hours (Table) 12/21/16 12/21/16 12/21/16 Range/Units 11:40 16:41 20:32 WBC (3.8-10.6) k/uL RBC (4.30-5.90) m/uL Hgb (13.0-17.5) gm/dL Hct (39.0-53.0) % Neutrophils # (1.3-7.7) k/uL POC Glucose (mg/dL) 116 H 206 H 408 H (75-99) mg/dL 12/22/16 12/22/16 12/22/16 Range/Units 01:47 02:11 05:40 WBC (3.8-10.6) k/uL RBC (4.30-5.90) m/uL Hgb (13.0-17.5) gm/dL Hct (39.0-53.0) % Neutrophils # (1.3-7.7) k/uL POC Glucose (mg/dL) 59 L 63 L 119 H (75-99) mg/dL 12/22/16 Range/Units 05:55 WBC 23.9 H (3.8-10.6) k/uL RBC 3.27 L (4.30-5.90) m/uL Hgb 10.0 L (13.0-17.5) gm/dL Hct 31.0 L (39.0-53.0) % Neutrophils # 21.2 H (1.3-7.7) k/uL POC Glucose (mg/dL) (75-99) mg/dL Assessment and Plan (1) NSTEMI (non-ST elevated myocardial infarction) Status: Acute (2) Coronary artery disease Status: Acute (3) Hyperlipemia Status: Acute (4) COPD (chronic obstructive pulmonary disease) Status: Acute (5) Anxiety Status: Acute Plan: 1. Continue aspirin, Plavix, Lipitor, beta jignesh, RIGOBERTO inhibitor. 2. Continue Amiodarone for A. fib prophylaxis. Decrease to 200 mg twice a day. 3. Lovenox ordered per cardiology. 4. HIT antibody test ordered, negative. 5. Continue to encourage aggressive use of incentive spirometry, coughing using heart hugger. Continue DuoNeb updrafts and Pulmicort per pulmonary. 6. GI/DVT prophylaxis 7. Increase activity, out of bed all day, ambulate in the hallway 3 times today , continue with physical therapy. 8. Wean O2 as tolerated. 9. Will DC pleural chest tube today. 10. Leukocytosis with a white blood cell count of 23.9, neutrophils 21.2. Will start antibiotics prophylactically. 11. Will transfer to rehab soon. Time with Patient: Greater than 30 <Elder Espinoza R - Last Filed: 12/22/16 11:29> Objective - Vital Signs Vital signs: Vital Signs Temp 97.3 F L 12/22/16 08:30 Pulse 96 12/22/16 09:06 Resp 16 12/22/16 08:30 BP 160/80 12/22/16 08:30 Pulse Ox 100 12/22/16 08:49 Intake & Output 12/21/16 12/22/16 12/22/16 18:59 06:59 18:59 Intake Total 218 300 240 Output Total 150 1270 200 Balance 68 -970 40 Weight 94 kg Intake: Oral 218 300 240 Output: Chest Tube Drainage 0 20 0 Chest Tube Left 0 20 0 Chest Tube Right Pleural/ 0 0 Mediastinal Urine 150 1250 200 Other: Voiding Method Urinal Urinal Urinal # Voids 4 1 ABP, PAP, CO, CI - Last Documented Arterial Blood Pressure 108/63 Pulmonary Artery Pressure 52/19 Cardiac Output 7.8 Cardiac Index 3.7 - Labs CBC & Chem 7: 12/22/16 05:55 12/21/16 06:01 Labs: Abnormal Lab Results - Last 24 Hours (Table) 12/21/16 12/21/16 12/21/16 Range/Units 11:40 16:41 20:32 WBC (3.8-10.6) k/uL RBC (4.30-5.90) m/uL Hgb (13.0-17.5) gm/dL Hct (39.0-53.0) % Neutrophils # (1.3-7.7) k/uL POC Glucose (mg/dL) 116 H 206 H 408 H (75-99) mg/dL 12/22/16 12/22/16 12/22/16 Range/Units 01:47 02:11 05:40 WBC (3.8-10.6) k/uL RBC (4.30-5.90) m/uL Hgb (13.0-17.5) gm/dL Hct (39.0-53.0) % Neutrophils # (1.3-7.7) k/uL POC Glucose (mg/dL) 59 L 63 L 119 H (75-99) mg/dL 12/22/16 Range/Units 05:55 WBC 23.9 H (3.8-10.6) k/uL RBC 3.27 L (4.30-5.90) m/uL Hgb 10.0 L (13.0-17.5) gm/dL Hct 31.0 L (39.0-53.0) % Neutrophils # 21.2 H (1.3-7.7) k/uL POC Glucose (mg/dL) (75-99) mg/dL Assessment and Plan Plan: Chest tubes out CXR clear, no PTX Lungs clear Discharge planning, needs short term outpatient rehab stay as limited resources at home Hopefully discharge tomorrow
--- NOTE | 2016-12-22 10:03 | XR ---
EXAMINATION TYPE: XR chest 2V DATE OF EXAM: 12/22/2016 9:25 AM COMPARISON: Chest x-ray from earlier today. HISTORY: Accidental chest tube removal. TECHNIQUE: Frontal and lateral views of the chest are obtained. FINDINGS: Left-sided chest tube is now absent. No sizable pneumothorax is seen after chest tube jeronimo sandy. Some subcutaneous emphysema on left lateral lower chest wall remains present. There is persisten t left basilar atelectasis and/or infiltrate and probable small left pleural effusion. Sternal wires and mediastinal clips are redemonstrated. There is stable mild cardiomegaly. There is chronic parench ymal change noted bilaterally. The osseous structures are intact. IMPRESSION: No evidence of sizable pneumothorax after accidental left-sided chest tube removal. Mild cardiomegaly and chronic parenchymal change with persistent left basilar atelectasis and/or infiltra te and probable small left pleural effusion all redemonstrated.
--- NOTE | 2016-12-22 10:34 | PN ---
This is a 66-year-old gentleman with history of CAD, status post CABG, postop day #8. Has had episodes of atrial fibrillation, currently in sinus rhythm on amiodarone and Lovenox, which we are going to switch to Eliquis. He denies chest pain, but has had shortness of breath, cough and productive sputum. Received IV diuretics. A chest x-ray on him today revealed mild cardiomegaly with left basal atelectasis without much pulmonary congestion. On exam, he is comfortable at rest. Afebrile. Heart rate is 90 beats per minute, blood pressure is 160/80, respiratory rate is 20. Chest exam reveals bilateral rhonchi. Heart exam reveals first and second heart sounds. No gallop. Exam of the extremities reveals 1+ edema. Peripheral pulses are felt. Labs show a hemoglobin of 10. The patient is on amiodarone 400 b.i.d., Eliquis, aspirin, Lipitor, Plavix, lisinopril 5 mg daily and on metoprolol 25 t.i.d. There are times when the patient is developing junctional bradycardia. ASSESSMENT: 1. Coronary artery disease, status post coronary artery bypass graft. 2. Paroxysmal atrial fibrillation. 3. Hypertension. PLAN: I am going to add Norvasc 5 mg daily and decrease the dose of Lopressor to 12.5 b.i.d., stop the Lovenox, start him on Eliquis.
--- NOTE | 2016-12-22 11:20 | PN ---
DATE OF SERVICE: 12/22/2016 Mr. Mendoza is seen, evaluated, and examined. Clinically doing slightly better, breathing comfortably, still gets short of breath on activity and exertion. His hemodynamic status is stable. His medications and laboratory data reviewed. His last chest x-ray performed revealed stable left-sided chest tube, no pneumothorax seen. Cardiomegaly, basal atelectasis is seen. Some improvement in the bases of the left lung is seen. No new infiltrates identified. Subcutaneous emphysema involving the upper thoracic wall on the left side overall stable. The vitals include blood pressure is 135/70, respiratory rate 18, pulse 88, temperature 97, saturating 100% on 3 L oxygen. HEENT: Unremarkable. NECK: Supple. LUNGS: Good air entry bilaterally. HEART: Regular rate and rhythm. S1 and S2 audible. Abdomen is soft. No rebound or rigidity. EXTREMITIES: +1 peripheral pulses. NEUROLOGICAL EXAMINATION: Otherwise, awake and alert. Labs are reviewed. White cell count; however, noted to up 23,900, hemoglobin and hematocrit 10 and 31, platelet count of 187,000. Laboratory data reviewed. IMPRESSION: 1. Fever and leukocytosis likely related to occult infection and pneumonia. Would recommend to initiate patient on empiric antibiotics. 2. Intermittently air leak and subcutaneous emphysema from the mediastinal tubes, overall stable now. 3. Coronary artery disease, status post coronary artery bypass graft, doing well in that regard. 4. Severe chronic obstructive pulmonary disease with end-stage lung disease and chronic hypoxic respiratory failure related to that. Continue breathing treatments and supportive care. Hold on steroids now. Will follow clinical course closely. Further recommendations pending.
[2016-12-22 11:36] LABS: Glucose,Whole Blood 189 mg/dL (75-99)
--- NOTE | 2016-12-22 12:17 | P.PN ---
Subjective 66-year-old male being seen on rounds this morning currently is sitting up in a chair. Nursing reports patient did get up and ambulate from the chair to the bathroom with assist. Patient is postop day 8 coronary artery bypass grafting being followed by cardiovascular surgery. Did note the white count is up to 23.9 this morning. Patient is afebrile. The urine in sputum cultures have been negative. Currently the patient is denying shortness of breath dizziness or lightheadedness or chest pain Objective - Vital Signs Vital signs: Vital Signs Temp 97.3 F L 12/22/16 08:30 Pulse 92 12/22/16 12:00 Resp 16 12/22/16 08:30 BP 160/80 12/22/16 08:30 Pulse Ox 100 12/22/16 08:49 Intake & Output 12/21/16 12/22/16 12/22/16 18:59 06:59 18:59 Intake Total 218 300 240 Output Total 150 1270 200 Balance 68 -970 40 Weight 94 kg Intake: Oral 218 300 240 Output: Chest Tube Drainage 0 20 0 Chest Tube Left 0 20 0 Chest Tube Right Pleural/ 0 0 Mediastinal Urine 150 1250 200 Other: Voiding Method Urinal Urinal Urinal # Voids 4 1 ABP, PAP, CO, CI - Last Documented Arterial Blood Pressure 108/63 Pulmonary Artery Pressure 52/19 Cardiac Output 7.8 Cardiac Index 3.7 - Exam Physical exam 66-year-old man sitting up in a chair appears in no acute distress this morning temps morning 97.3. Denying chest pain denying dizziness or lightheadedness or shortness of breath oriented 3 Lungs posterior diminished at the bases no nasal cannula at 3 L sats 99 200% no cough noted no use of accessory muscles to breathe Heart S1-S2 audible and regular Abdomen soft nontender urinating with no difficulty no stool tolerating diet no nausea vomiting Extremities no edema noted - Labs CBC & Chem 7: 12/22/16 05:55 12/21/16 06:01 Labs: Abnormal Lab Results - Last 24 Hours (Table) 12/21/16 12/21/16 12/22/16 Range/Units 16:41 20:32 01:47 WBC (3.8-10.6) k/uL RBC (4.30-5.90) m/uL Hgb (13.0-17.5) gm/dL Hct (39.0-53.0) % Neutrophils # (1.3-7.7) k/uL POC Glucose (mg/dL) 206 H 408 H 59 L (75-99) mg/dL 12/22/16 12/22/16 12/22/16 Range/Units 02:11 05:40 05:55 WBC 23.9 H (3.8-10.6) k/uL RBC 3.27 L (4.30-5.90) m/uL Hgb 10.0 L (13.0-17.5) gm/dL Hct 31.0 L (39.0-53.0) % Neutrophils # 21.2 H (1.3-7.7) k/uL POC Glucose (mg/dL) 63 L 119 H (75-99) mg/dL 12/22/16 Range/Units 11:35 WBC (3.8-10.6) k/uL RBC (4.30-5.90) m/uL Hgb (13.0-17.5) gm/dL Hct (39.0-53.0) % Neutrophils # (1.3-7.7) k/uL POC Glucose (mg/dL) 189 H (75-99) mg/dL Assessment and Plan Plan: Impression Non-ST elevated CO Status post heart catheterization showing two-vessel coronary artery occlusive disease Hyperlipidemia COPD EF 45-50% with severe hypokinesis in the basal inferior wall per echo Current every day smoker Anxiety disorder nonspecified Episode of paroxysmal atrial fibrillation currently sinus Status post coronary artery bypass grafting 3 vessels postop day 6 Acute on chronic systolic congestive heart failure EF 45-50 percent with severe hypokinesis Leukocytosis unclear etiology negative urine and sputum Plan Discharge plan and progress possible discharge in the next 24-48 hours defer to cardiovascular to the timing Encourage the use of the incentive spirometer Continue postop surgical care per cardiovascular surgery's recommendations Repeat the labs in the morning Monitor blood pressure and heart rate adjust antihypertensive meds if indicated Patient's been advised to stop smoking cigarettes The above dictated assessment and findings were discussed with dr mcnamara Impression and the plan of care have been dictated as directed. Jerica Lima nurse practitioner acting as a scribe for dr gonzáles
[2016-12-22 12:41] VITALS: RESP 18
[2016-12-22] MEDS: amLODIPine 10 MG TAB PO SCH (12:45)
[2016-12-22 16:40] LABS: Glucose,Whole Blood 133 mg/dL (75-99)
[2016-12-22] MEDS: APIXABAN 5 MG TAB PO SCH (21:07)
[2016-12-22] MEDS: METOPROLOL TARTRATE 12.5 MG TAB PO SCH (21:07)
[2016-12-22] MEDS: SENNOSIDES-DOCUSATE SODIUM 1 EACH TAB PO SCH (21:08)
[2016-12-22 22:09] LABS: Glucose,Whole Blood 127 mg/dL (75-99)
[2016-12-23] MEDS: IPRATROPIUM-ALBUTEROL 3 ML NEB INHALATION PRN (04:05)
[2016-12-23 05:47] LABS: Basophils % (A) 0 %; CH 30.6; CHCM 32.1; Eosinophils # (A) 0.2 k/uL (0-0.7); Eosinophils % (A) 1 %; HCT 31.8 % (39.0-53.0); HDW 2.86; HGB 10.2 gm/dL (13.0-17.5); Hypochromasia Slight; Luc # (Auto) 0.32; Luc % (Auto) 2; Lymphocytes # (A) 1.8 k/uL (1.0-4.8); Lymphocytes % (A) 9 %; MCH 30.7 pg (25.0-35.0); MCV 96.1 fL (80.0-100.0); Mean Platelet Volume 7.7; Monocytes # (A) 0.8 k/uL (0-1.0); Monocytes % (A) 4 %; Neutrophils # (A) 16.6 k/uL (1.3-7.7); Neutrophils % (A) 84 %; RBC 3.31 m/uL (4.30-5.90); RDW 14.5 % (11.5-15.5); WBC 19.7 k/uL (3.8-10.6); WBC (Perox) 19.74
[2016-12-23 06:02] LABS: ALT 43 U/L (21-72); AST 27 U/L (17-59); Alkaline Phosphatase 57 U/L (38-126); Anion Gap 10 mmol/L; Blood Urea Nitrogen 20 mg/dL (9-20); Calcium 7.9 mg/dL (8.4-10.2); Carbon Dioxide 28 mmol/L (22-30); Chloride 100 mmol/L (98-107); Glucose 118 mg/dL (74-99); Non-African American GFR(MDRD) >60 (>60 ml/min/1.73 sqM); Potassium 4.2 mmol/L (3.5-5.1); Sodium 138 mmol/L (137-145); Total Protein 5.3 g/dL (6.3-8.2)
[2016-12-23 06:35] LABS: Glucose,Whole Blood 121 mg/dL (75-99)
[2016-12-23] MEDS: INSULIN LISPRO (humaLOG) 300 UNIT/3 ML VIAL SQ SCH ×2 (06:47→12:11)
[2016-12-23] MEDS ORDERED: PANTOPRAZOLE 40 MG TABLET PO SCH (07:30)
--- NOTE | 2016-12-23 07:45 | XR ---
EXAMINATION TYPE: XR chest 2V DATE OF EXAM: 12/23/2016 6:39 AM COMPARISON: NONE INDICATION: Postop CABG TECHNIQUE: Single frontal view of the chest is obtained. FINDINGS: The heart size is normal. The pulmonary vasculature is normal. The lungs are clear. Subcutaneous emphysema is evident anterior to the sternotomy region. Correlate with the timing of rosana angela or consider the possibility gas forming infection. IMPRESSION: 1. No acute pulmonary process. 2. Postsurgical air anterior to the chest. Clinically consider infection.
[2016-12-23 08:26] VITALS: TEMP 97.3
--- NOTE | 2016-12-23 08:54 | P.PN ---
<Marianela Douglas - Last Filed: 12/23/16 08:48> Subjective Principal diagnosis: Coronary artery disease. POD #9 coronary artery bypass grafting 3 vessels, left internal mammary artery to the left anterior descending artery, saphenous vein graft to diagonal artery, saphenous vein graft to distal right coronary artery. Endoscopic vein harvest left greater saphenous vein. Epi-aortic ultrasound. Transesophageal echocardiogram. Fiberoptic bronchoscopy performed by Dr. Null. Patient currently sitting in bed in no apparent distress. Denies pain, states he feels better this morning. Objective - Vital Signs Vital signs: Vital Signs Temp 97.3 F L 12/23/16 08:15 Pulse 86 12/23/16 08:15 Resp 18 12/23/16 08:15 BP 126/64 12/23/16 08:15 Pulse Ox 96 12/23/16 08:15 Intake & Output 12/22/16 12/23/16 12/23/16 18:59 06:59 18:59 Intake Total 1220 Output Total 1350 500 Balance -130 -500 Weight 93 kg Intake: Oral 1220 Output: Chest Tube Drainage 0 Chest Tube Left 0 Chest Tube Right Pleural/ 0 Mediastinal Urine 1350 500 Other: Voiding Method Urinal Urinal # Voids 1 ABP, PAP, CO, CI - Last Documented Arterial Blood Pressure 108/63 Pulmonary Artery Pressure 52/19 Cardiac Output 7.8 Cardiac Index 3.7 - Constitutional General appearance: Present: cooperative, no acute distress - Respiratory Details: Lung sounds diminished with continued wheezing throughout. Respirations even and nonlabored. Currently on 4 L nasal cannula. Only able to achieve 500 mL on incentive spirometry. Positive productive cough with yellow sputum. - Cardiovascular Details: S1, S2 present. Regular rate and rhythm, normal sinus rhythm on telemetry. Chest stable. Heart hugger in place with patient demonstrating appropriate use. Bilateral lower extremity edema still present. Teds, SCDs present. - Gastrointestinal Gastrointestinal Comment(s): Abdomen soft, nontender, nondistended. Bowel sounds active 4 quadrants. Bowel movement yesterday per patient. Tolerating diet. - Genitourinary Genitourinary Comment(s): Continues to void clear yellow urine per urinal. - Integumentary Integumentary Comment(s): Anterior chest wall incision covered with dry intact dressing. Left lower extremity EVH site well approximated. - Musculoskeletal Musculoskeletal: Present: generalized weakness - Psychiatric Psychiatric: Present: A&O x's 3, appropriate affect, intact judgment & insight - Allied health notes Allied health notes reviewed: nursing - Labs CBC & Chem 7: 12/23/16 05:18 12/23/16 05:18 Labs: Abnormal Lab Results - Last 24 Hours (Table) 12/22/16 12/22/16 12/22/16 Range/Units 11:35 16:38 21:23 WBC (3.8-10.6) k/uL RBC (4.30-5.90) m/uL Hgb (13.0-17.5) gm/dL Hct (39.0-53.0) % Neutrophils # (1.3-7.7) k/uL Glucose (74-99) mg/dL POC Glucose (mg/dL) 189 H 133 H 127 H (75-99) mg/dL Calcium (8.4-10.2) mg/dL Total Protein (6.3-8.2) g/dL Albumin (3.5-5.0) g/dL 12/23/16 12/23/16 12/23/16 Range/Units 05:18 05:18 06:34 WBC 19.7 H (3.8-10.6) k/uL RBC 3.31 L (4.30-5.90) m/uL Hgb 10.2 L (13.0-17.5) gm/dL Hct 31.8 L (39.0-53.0) % Neutrophils # 16.6 H (1.3-7.7) k/uL Glucose 118 H (74-99) mg/dL POC Glucose (mg/dL) 121 H (75-99) mg/dL Calcium 7.9 L (8.4-10.2) mg/dL Total Protein 5.3 L (6.3-8.2) g/dL Albumin 2.8 L (3.5-5.0) g/dL - Imaging and Cardiology Chest x-ray: report reviewed, image reviewed Assessment and Plan (1) NSTEMI (non-ST elevated myocardial infarction) Status: Acute (2) Coronary artery disease Status: Acute (3) Hyperlipemia Status: Acute (4) COPD (chronic obstructive pulmonary disease) Status: Acute (5) Anxiety Status: Acute Plan: 1. Continue aspirin, Plavix, Lipitor, beta jignesh, RIGOBERTO inhibitor. 2. Continue Amiodarone for A. fib prophylaxis. Decrease to 200 mg twice a day. 3. Lovenox ordered per cardiology. 4. HIT antibody test ordered, negative. 5. Continue to encourage aggressive use of incentive spirometry, coughing using heart hugger. Continue DuoNeb updrafts and Pulmicort per pulmonary. 6. GI/DVT prophylaxis 7. Increase activity, out of bed all day, ambulate in the hallway 3 times today , continue with physical therapy. 8. Wean O2 as tolerated. 9. Patient needs to shower today. Discussed with primary RN. 10. Leukocytosis improving with a white blood cell count of 19.7, neutrophils 16.6. No antibiotic treatment at this time . 11. Will transfer to rehab soon. Time with Patient: Greater than 30 <Elder Espinoza - Last Filed: 12/23/16 09:17> Objective - Vital Signs Vital signs: Vital Signs Temp 97.3 F L 12/23/16 08:15 Pulse 86 12/23/16 08:15 Resp 18 12/23/16 08:15 BP 126/64 12/23/16 08:15 Pulse Ox 96 12/23/16 08:15 Intake & Output 12/22/16 12/23/16 12/23/16 18:59 06:59 18:59 Intake Total 1220 Output Total 1350 500 Balance -130 -500 Weight 93 kg Intake: Oral 1220 Output: Chest Tube Drainage 0 Chest Tube Left 0 Chest Tube Right Pleural/ 0 Mediastinal Urine 1350 500 Other: Voiding Method Urinal Urinal # Voids 1 ABP, PAP, CO, CI - Last Documented Arterial Blood Pressure 108/63 Pulmonary Artery Pressure 52/19 Cardiac Output 7.8 Cardiac Index 3.7 - Labs CBC & Chem 7: 12/23/16 05:18 12/23/16 05:18 Labs: Abnormal Lab Results - Last 24 Hours (Table) 12/22/16 12/22/16 12/22/16 Range/Units 11:35 16:38 21:23 WBC (3.8-10.6) k/uL RBC (4.30-5.90) m/uL Hgb (13.0-17.5) gm/dL Hct (39.0-53.0) % Neutrophils # (1.3-7.7) k/uL Glucose (74-99) mg/dL POC Glucose (mg/dL) 189 H 133 H 127 H (75-99) mg/dL Calcium (8.4-10.2) mg/dL Total Protein (6.3-8.2) g/dL Albumin (3.5-5.0) g/dL 12/23/16 12/23/16 12/23/16 Range/Units 05:18 05:18 06:34 WBC 19.7 H (3.8-10.6) k/uL RBC 3.31 L (4.30-5.90) m/uL Hgb 10.2 L (13.0-17.5) gm/dL Hct 31.8 L (39.0-53.0) % Neutrophils # 16.6 H (1.3-7.7) k/uL Glucose 118 H (74-99) mg/dL POC Glucose (mg/dL) 121 H (75-99) mg/dL Calcium 7.9 L (8.4-10.2) mg/dL Total Protein 5.3 L (6.3-8.2) g/dL Albumin 2.8 L (3.5-5.0) g/dL Assessment and Plan Plan: Ambulate Bowel regimen Ready for transfer to rehab facility
[2016-12-23] MEDS ORDERED: ASPIRIN 81 MG CHEW PO SCH (09:00)
[2016-12-23] MEDS ORDERED: AMIODARONE 200 MG TAB PO SCH (09:00)
[2016-12-23] MEDS: BUDESONIDE 0.5 MG/2 ML NEBU INHALATION SCH (09:09)
[2016-12-23] MEDS: IPRATROPIUM-ALBUTEROL 3 ML NEB INHALATION SCH ×2 (09:09→11:25)
[2016-12-23] MEDS: amLODIPine 10 MG TAB PO SCH (09:46)
[2016-12-23] MEDS: CLOPIDOGREL 75 MG TAB PO SCH (09:47)
[2016-12-23] MEDS: ATORVASTATIN 40 MG TAB PO SCH (09:47)
[2016-12-23] MEDS: LISINOPRIL 5 MG TAB PO SCH (09:47)
[2016-12-23] MEDS: FUROSEMIDE 10 MG/ML 4 ML VIAL IV SCH ×2 (09:47→10:36)
[2016-12-23] MEDS: MUPIROCIN 2% OINT 22 GM TUBE NASAL SCH (09:47)
[2016-12-23] MEDS: APIXABAN 5 MG TAB PO SCH (09:47)
[2016-12-23] MEDS: METOPROLOL TARTRATE 12.5 MG TAB PO SCH (09:48)
[2016-12-23] MEDS: ALPRAZolam 0.25 MG TAB PO PRN (09:58)
--- NOTE | 2016-12-23 10:13 | P.PN ---
Subjective A 66-year-old being seen on rounds this morning. Currently patient is up sitting in a chair. Patient states he feels much better denying chest pain denying shortness of breath. Patient is postop day 9 coronary artery bypass grafting 3 vessels patients being followed by multiple consulting physicians recommendations reviewed noted and appreciated. Discharge plan is in progress patient is being evaluated for subacute rehab Objective - Vital Signs Vital signs: Vital Signs Temp 97.3 F L 12/23/16 08:15 Pulse 86 12/23/16 08:15 Resp 18 12/23/16 08:15 BP 126/64 12/23/16 08:15 Pulse Ox 96 12/23/16 08:15 Intake & Output 12/22/16 12/23/16 12/23/16 18:59 06:59 18:59 Intake Total 1220 Output Total 1350 500 Balance -130 -500 Weight 93 kg Intake: Oral 1220 Output: Chest Tube Drainage 0 Chest Tube Left 0 Chest Tube Right Pleural/ 0 Mediastinal Urine 1350 500 Other: Voiding Method Urinal Urinal # Voids 1 ABP, PAP, CO, CI - Last Documented Arterial Blood Pressure 108/63 Pulmonary Artery Pressure 52/19 Cardiac Output 7.8 Cardiac Index 3.7 - Exam Physical exam 66-year-old male sitting up in chair oriented 3 pleasant cooperative appears in no acute distress Lungs diminished at the bases otherwise adequate air movement currently on 3 L sats are 95% Heart S1-S2 audible regular bear hugger in place Abdomen soft nontender not distended bowel tones positive no frequent stooling urinating no difficult Extremities no edema - Labs CBC & Chem 7: 12/23/16 05:18 12/23/16 05:18 Labs: Abnormal Lab Results - Last 24 Hours (Table) 12/22/16 12/22/16 12/22/16 Range/Units 11:35 16:38 21:23 WBC (3.8-10.6) k/uL RBC (4.30-5.90) m/uL Hgb (13.0-17.5) gm/dL Hct (39.0-53.0) % Neutrophils # (1.3-7.7) k/uL Glucose (74-99) mg/dL POC Glucose (mg/dL) 189 H 133 H 127 H (75-99) mg/dL Calcium (8.4-10.2) mg/dL Total Protein (6.3-8.2) g/dL Albumin (3.5-5.0) g/dL 12/23/16 12/23/16 12/23/16 Range/Units 05:18 05:18 06:34 WBC 19.7 H (3.8-10.6) k/uL RBC 3.31 L (4.30-5.90) m/uL Hgb 10.2 L (13.0-17.5) gm/dL Hct 31.8 L (39.0-53.0) % Neutrophils # 16.6 H (1.3-7.7) k/uL Glucose 118 H (74-99) mg/dL POC Glucose (mg/dL) 121 H (75-99) mg/dL Calcium 7.9 L (8.4-10.2) mg/dL Total Protein 5.3 L (6.3-8.2) g/dL Albumin 2.8 L (3.5-5.0) g/dL Assessment and Plan Plan: Impression Non-ST elevated CA Status post heart catheterization showing two-vessel coronary artery occlusive disease Hyperlipidemia COPD EF 45-50% with severe hypokinesis in the basal inferior wall per echo Current every day smoker Anxiety disorder nonspecified Episode of paroxysmal atrial fibrillation currently sinus Status post coronary artery bypass grafting 3 vessels postop day 6 Acute on chronic systolic congestive heart failure EF 45-50 percent with severe hypokinesis Leukocytosis unclear etiology negative urine and sputum Plan Discharge plan and progress possible discharge in the next 24-48 hours defer to cardiovascular to the timing Encourage the use of the incentive spirometer Continue postop surgical care per cardiovascular surgery's recommendations Repeat the labs in the morning Monitor blood pressure and heart rate adjust antihypertensive meds if indicated Patient's been advised to stop smoking cigarettes Increase activity as tolerated The above dictated assessment and findings were discussed with Dr. Maira dos santos covering for dr mcnamara Impression and the plan of care have been dictated as directed. Jerica Lima nurse practitioner acting as a scribe for Dr. Maira dos santos covering for dr gonzáles
--- NOTE | 2016-12-23 10:27 | P.PN ---
Subjective Principal diagnosis: Non-STEMI This is a 66-year-old gentleman who presented to [facility] with a non-ST elevation myocardial infarction. He was seen in consultation there by Dr. Regalado, cardiac catheterization was performed there which revealed two-vessel coronary artery disease and patient was transferred here, subsequently underwent coronary artery bypass grafting surgery. Patient was seen and examined this morning, blood pressure 126/74 with a heart rate in the 80s. He is currently in normal sinus rhythm. Currently on by mouth amiodarone. On Eliquis 5 mg one tablet by mouth twice a day for anticoagulation. Arrangements are being made for the patient to be transferred to rehab today. Objective - Vital Signs Vital signs: Vital Signs Temp 97.3 F L 12/23/16 08:15 Pulse 86 12/23/16 08:15 Resp 18 12/23/16 08:15 BP 126/64 12/23/16 08:15 Pulse Ox 96 12/23/16 08:15 Intake & Output 12/22/16 12/23/16 12/23/16 18:59 06:59 18:59 Intake Total 1220 Output Total 1350 500 Balance -130 -500 Weight 93 kg Intake: Oral 1220 Output: Chest Tube Drainage 0 Chest Tube Left 0 Chest Tube Right Pleural/ 0 Mediastinal Urine 1350 500 Other: Voiding Method Urinal Urinal # Voids 1 ABP, PAP, CO, CI - Last Documented Arterial Blood Pressure 108/63 Pulmonary Artery Pressure 52/19 Cardiac Output 7.8 Cardiac Index 3.7 - Exam PHYSICAL EXAMINATION: HEENT: [Head is atraumatic, normocephalic. Pupils equal, round. Neck is supple. There is no elevated jugular venous pressure.] HEART EXAMINATION: [Heart S1, S2 normal. No murmur or gallop heard.] CHEST EXAMINATION: Lungs reveal some coarse wheezing and scattered rhonchi throughout. Diminished air entry to bilateral bases. ABDOMEN: [ Soft, nontender. Bowel sounds are heard. No organomegaly noted]. EXTREMITIES:[ 2+ peripheral pulses with no evidence of peripheral edema and no calf tenderness noted]. NEUROLOGIC [patient is awake, alert and oriented -3.] . - Labs CBC & Chem 7: 12/23/16 05:18 12/23/16 05:18 Labs: Abnormal Lab Results - Last 24 Hours (Table) 12/22/16 12/22/16 12/22/16 Range/Units 11:35 16:38 21:23 WBC (3.8-10.6) k/uL RBC (4.30-5.90) m/uL Hgb (13.0-17.5) gm/dL Hct (39.0-53.0) % Neutrophils # (1.3-7.7) k/uL Glucose (74-99) mg/dL POC Glucose (mg/dL) 189 H 133 H 127 H (75-99) mg/dL Calcium (8.4-10.2) mg/dL Total Protein (6.3-8.2) g/dL Albumin (3.5-5.0) g/dL 12/23/16 12/23/16 12/23/16 Range/Units 05:18 05:18 06:34 WBC 19.7 H (3.8-10.6) k/uL RBC 3.31 L (4.30-5.90) m/uL Hgb 10.2 L (13.0-17.5) gm/dL Hct 31.8 L (39.0-53.0) % Neutrophils # 16.6 H (1.3-7.7) k/uL Glucose 118 H (74-99) mg/dL POC Glucose (mg/dL) 121 H (75-99) mg/dL Calcium 7.9 L (8.4-10.2) mg/dL Total Protein 5.3 L (6.3-8.2) g/dL Albumin 2.8 L (3.5-5.0) g/dL Assessment and Plan (1) NSTEMI (non-ST elevated myocardial infarction) Status: Acute (2) S/P cardiac cath Status: Acute (3) COPD (chronic obstructive pulmonary disease) Status: Acute (4) Hyperlipemia Status: Acute (5) S/P CABG (coronary artery bypass graft) Status: Acute (6) Paroxysmal a-fib Status: Acute Plan: Patient is currently on aspirin 81 mg daily, Lipitor 40 milligrams daily, metoprolol tartrate 25 mg one tablet by mouth 3 times a day, Plavix 75 mg daily , , amiodarone 200 mg twice a day and Eliquis 5 mg one tablet by mouth twice a day. Arrangements are being made for the patient to be transferred to rehab today. A follow-up appointment will be made with Dr. Regalado in the office 2 weeks post discharge. DNP note has been reviewed, I agree with a documented findings and plan of care. Patient was seen and examined.
[2016-12-23 11:43] LABS: Glucose,Whole Blood 136 mg/dL (75-99)
--- NOTE | 2016-12-23 11:43 | P.DS ---
Providers Date of admission: 12/10/16 16:45 Attending physician: Arun Bhatt Consults: 12/10/16 19:04 Consult Physician Stat Consulting Provider: Li Giron Consult Reason/Comments: cad Do you want consulting provider notified?: Yes 12/11/16 10:13 Consult Physician Routine Consulting Provider: Ezequiel Bhatia Consult Reason/Comments: Pulmonary Manangement Do you want consulting provider notified?: Yes Consult Physician Routine Consulting Provider: Anastasiia Weiner Consult Reason/Comments: Cardiology Management Do you want consulting provider notified?: Already Contacted 12/13/16 08:00 Consult Anesthesia Routine Consulting Provider: Anesthesia,Services Consult Reason/Comments: Cardiac Surgery Pre-Op 12/13/16 14:42 Consult Physician Routine Consulting Provider: Alex Robertson Consult Reason/Comments: med management Do you want consulting provider notified?: Already Contacted Primary care physician: Alex Robertson - Discharge Diagnosis(es) (1) NSTEMI (non-ST elevated myocardial infarction) Current Visit: Yes Status: Acute (2) Coronary artery disease Current Visit: Yes Status: Acute (3) Hyperlipemia Current Visit: Yes Status: Acute (4) COPD (chronic obstructive pulmonary disease) Current Visit: Yes Status: Acute (5) Anxiety Current Visit: Yes Status: Acute Hospital Course: FINAL DIAGNOSIS: 1.[Coronary artery disease] 2.[COPD] 3.[Hypertension] 4.[Hyperlipidemia] 5.[Current tobacco dependence] 6.[Non-ST elevation myocardial infarction this admission] 7.[History of recent pneumonia] 8.[Medical marijuana use] 9.[Significant right-sided carotid stenosis, 100% occluded per doppler] 10. [Post operative atrial fibrillation] PRINCIPAL PROCEDURE: [] 1.[Urgent coronary artery bypass grafting 3 vessels, left internal mammary artery to left anterior descending artery, saphenous vein graft to diagonal artery, saphenous vein graft to distal right coronary artery] 2.[Endoscopic vein harvest left greater saphenous vein] 3.[Epi-aortic ultrasound] 4.[Transesophageal echocardiogram] 5.[Fiberoptic bronchoscopy performed by Dr. Null] HISTORY OF PRESENT ILLNESS: [ This 66-year-old gentleman presented to [facility] with chest pain. He was diagnosed with a non-ST elevated myocardial infarction and taken to the [facility]. Significant coronary artery blockages were found, and the patient was transferred to [facility] for cardiothoracic surgical evaluation. He received the appropriate preoperative testing, all risks and benefits were explained to the patient, and he consented to surgery.] HOSPITAL COURSE:[The patient was brought in as an outpatient, admitted to the pre-operative area, prepared for surgery, and taken to the OR where he underwent an urgent coronary artery bypass grafts 3 vessels with the left internal mammary artery to the left anterior descending artery, saphenous vein graft to the diagonal artery, and saphenous vein graft to the distal right coronary artery.during the operative course the patient's pCO2 began rising, and despite increasing the respiratory rate and tidal volume the patient remained acidotic. Dr. Null was called in to do an intraoperative fiber optic bronchoscopy. Per Dr. Null there was no evidence of mass, ulceration, or inflammation the trachea, left mainstem bronchus, left upper lobe bronchus or left lower lobe bronchus. In addition the right main stem bronchus right upper lobe bronchus bronchus intermedius and right lower lobe bronchus were all free of disease. He did have some thick sputum which was aspirated. Without evidence of significant abnormalities surgery continued. The patient was eventually weaned from cardiopulmonary bypass, follow-up MICHELLE was performed, mediastinal and left pleural chest tubes were placed, and the patient was transferred to ICU for phase I cardiac rehabilitation. Over the course of the next several days the patient was weaned from the ventilator, extubated,all lines, tubes and drips were discontinued, and the patient was transferred to [address] [place] [address] for continued cardiac rehabilitation. He did develop some paroxysmal atrial fibrillation which was treated accordingly.He continued with physical therapy with minimal effort. He is ready for transfer to [facility] rehab facility today.] COMPLICATIONS: [His postoperative period was complicated by prolonged mechanical ventilation and postoperative atrial fibrillation] CONSULTATIONS: 1.[Dr. Bonny Weiner for cardiology] 2.[Dr. Bhatia for pulmonology] 3.[Dr. Robertson for medical management] DISCHARGE INSTRUCTIONS: 1. No driving for 4 weeks, or until physician gives their ok. 2. The patient should sleep in their own bed, no medical bed needed. 3. Stairs are not an issue. If the bedroom is upstairs, it is advised that the patient go up at night and down in the morning for the first week. Go slowly, using handrail and take 1 step at a time. 4. JAIR hose are to be worn for 30 days or until physician discontinues. 5. Heart hugger is to be worn 100% of the time until physician discontinues.( except when showering) 6. No lifting, pushing, or pulling more than 10 pounds for 12 weeks. The physician will advise of any restriction changes. 7. The patient is expected to continue the prescribed walking program. 8. Continue pain control per as needed orders. 9. Continue with incentive spirometry and splinting/heart hugger until otherwise directed by the physician. 10. Must shower daily using liquid antibacterial soap and a separate white washcloth for each individual incision. 11. Please remove Medline Silver Optifoam chest dressing on [December 28] with routine sternal incision care thereafter. 12. Consult PT for/OT, evaluate and treat. 13. Consult respiratory therapy, evaluate and treat. REHAB FACILITY TO PROVIDE: RN FOR POST-OP SURGICAL PATIENTS WITH THE FOLLOWING: Coronary Artery Bypass Surgery (CABG) RN TO CONTINUE EDUCATION FROM ``ROAD TO A HEALTH HEART PATIENT EDUCATION MANUAL (GIVEN TO PATIENT IN THE HOSPITAL) MEDICATION RECONCILIATION WITH EDUCATION NEEDED EMPHASIZE IMPORTANCE OF WEARING HEART HUGGER ENCOURAGE USE OF INCENTIVE SPIROMETER 10 X EVERY HOUR WHILE AWAKE ENCOURAGE UTILIZATION OF LOWER EXTREMITY COMPRESSION STOCKINGS/JAIR HOSE and ELEVATE LEGS ABOVE LEVEL OF HEART WHILE AT REST. ENCOURAGE AMBULATION 3-5x/day INCREASING TOLERATES, WHILE AVOID EXTREMES IN TEMPERATURE REMOVAL OF SUTURES: NURSING SERVICES TO REMOVE SUTURES TWO WEEKS POST SURGICAL DATE [ December 28 ]. If any questions regarding suture removal please call the office at [phone]. LABORATORY: CBC, CMP TO BE DRAWN ON THE THIRD DAY POST DC, Tuesday12/26/2016 (RAN STAT) FAX RESULTS TO [phone]. TELEHEALTH PARAMETERS: WEIGHT: NOTIFY MD OF WEIGHT GAIN OF 2 LBS IN 24 HOURS OR 5 LBS IN ONE WEEK HR: NOTIFY MD OF HR <55 BPM OR HR>100 BPM BP: NOTIFY MD IF BP <90/55 OR BP>140/100 O2 SAT: NOTIFY MD IF PO2<93% ON ROOM AIR SEND TELEHEALTH REPORT TO DRAWING FRAME TENDER AND CARDIOVASCULAR SURGEON THE FIRST WEEK OF CARE AND THEN BI-WEEKLY. PLEASE ADDITIONALLY COMMUNICATE ANY ABNORMALS AND NEW FINDINGS TO THE SURGEONS OFFICE. Plan - Discharge Summary New Discharge Prescriptions: HYDROcodone/APAP 5-325MG [Flagler 5-325] 1 - 2 each PO Q4HR PRN #60 tab PRN Reason: Moderate Pain Discharge Medication List Amiodarone [Cordarone] 200 mg PO BID tab 12/23/16 [Rx] Apixaban [Eliquis] 5 mg PO BID tab 12/23/16 [Rx] Aspirin 81 mg PO DAILY chew 12/23/16 [Rx] Atorvastatin [Lipitor] 40 mg PO DAILY tab 12/23/16 [Rx] Bisacodyl [Dulcolax] 10 mg RECTAL DAILY PRN #0 supp 12/23/16 [Rx] Budesonide [Pulmicort] 0.5 mg INHALATION RT-BID nebu 12/23/16 [Rx] Clopidogrel [Plavix] 75 mg PO DAILY tab 12/23/16 [Rx] HYDROcodone/APAP 5-325MG [Flagler 5-325] 1 - 2 each PO Q4HR PRN #60 tab 12/23/16 [ Rx] Ipratropium-Albuterol Nebulize [Duoneb 0.5 mg-3 mg/3 ml Soln] 3 ml INHALATION RT -Q2H PRN #0 ampul.neb 12/23/16 [Rx] Ipratropium-Albuterol Nebulize [Duoneb 0.5 mg-3 mg/3 ml Soln] 3 ml INHALATION RT -QID ampul.neb 12/23/16 [Rx] Lisinopril [Zestril] 5 mg PO DAILY tab 12/23/16 [Rx] Magnesium Hydroxide [Milk of Magnesia Concentrate] 2,400 mg PO BID PRN #0 ml [Rx] Metoprolol Tartrate [Lopressor] 12.5 mg PO BID tab 12/23/16 [Rx] Pantoprazole [Protonix] 40 mg PO AC-BRKFST tablet. 12/23/16 [Rx] Sennosides-Docusate Sodium [Senokot-S] 2 each PO HS tab 12/23/16 [Rx] amLODIPine [Norvasc] 10 mg PO DAILY tab 12/23/16 [Rx] Follow up Appointment(s)/Referral(s): Anastasiia Weiner MD [STAFF PHYSICIAN] - 01/05/17 1:30 pm Aurn Bhatt MD [STAFF PHYSICIAN] - 01/14/17 10:30 am Ezequiel Bhatia MD [STAFF PHYSICIAN] - 1 Week Alex Robertson MD [Primary Care Provider] - 01/05/17 9:15 am Ambulatory/Diagnostic Orders: Complete Blood Count w/diff [LAB.AMB] Time Frame: 3 Days, Facility: [facility], Location: Laboratory [facility] Comprehensive Metabolic Panel [LAB.AMB] Time Frame: 3 Days, Facility: [facility], Location: Laboratory [facility] Activity/Diet/Wound Care/Special Instructions: [facility]: #[phone] DISCHARGE INSTRUCTIONS: 1. No driving for 4 weeks, or until physician gives their ok. 2. The patient should sleep in their own bed, no medical bed needed. 3. Stairs are not an issue. If the bedroom is upstairs, it is advised that the patient go up at night and down in the morning for the first week. Go slowly, using handrail and take 1 step at a time. 4. JAIR hose are to be worn for 30 days or until physician discontinues. 5. Heart hugger is to be worn 100% of the time until physician discontinues.( excepet when showering) 6. No lifting, pushing, or pulling more than 10 pounds for 12 weeks. The physician will advise of any restriction changes. 7. The patient is expected to continue the prescribed walking program. 8. Continue pain control per as needed orders. 9. Continue with incentive spirometry and splinting/heart hugger until otherwise directed by the physician. 10. Must shower daily using liquid antibacterial soap and a separate white washcloth for each individual incision. 11. Please remove Silverlon chest dressing on [December 28] with routine sternal incision care thereafter. REHAB FACILITY TO PROVIDE: RN FOR POST-OP SURGICAL PATIENTS WITH THE FOLLOWING: Coronary Artery Bypass Surgery (CABG) RN TO CONTINUE EDUCATION FROM ``ROAD TO A HEALTH HEART PATIENT EDUCATION MANUAL (GIVEN TO PATIENT IN THE HOSPITAL) MEDICATION RECONCILIATION WITH EDUCATION NEEDED EMPHASIZE IMPORTANCE OF WEARING HEART HUGGER ENCOURAGE USE OF INCENTIVE SPIROMETER 10 X EVERY HOUR WHILE AWAKE ENCOURAGE UTILIZATION OF LOWER EXTREMITY COMPRESSION STOCKINGS/JAIR HOSE and ELEVATE LEGS ABOVE LEVEL OF HEART WHILE AT REST. ENCOURAGE AMBULATION 3-5x/day INCREASING TOLERATES, WHILE AVOID EXTREMES IN TEMPERATURE REMOVAL OF SUTURES: NURSING SERVICES TO REMOVE SUTURES TWO WEEKS POST SURGICAL DATE [ December 28 ]. If any questions regarding suture removal please call the office at [phone]. LABORATORY: CBC, CMP TO BE DRAWN ON THE THIRD DAY POST DC, Tuesday12/26/2016 (RAN STAT) FAX RESULTS TO [phone]. TELEHEALTH PARAMETERS: WEIGHT: NOTIFY MD OF WEIGHT GAIN OF 2 LBS IN 24 HOURS OR 5 LBS IN ONE WEEK HR: NOTIFY MD OF HR <55 BPM OR HR>100 BPM BP: NOTIFY MD IF BP <90/55 OR BP>140/100 O2 SAT: NOTIFY MD IF PO2<93% ON ROOM AIR SEND TELEHEALTH REPORT TO DRAWING FRAME TENDER AND CARDIOVASCULAR SURGEON THE FIRST WEEK OF CARE AND THEN BI-WEEKLY. PLEASE ADDITIONALLY COMMUNICATE ANY ABNORMALS AND NEW FINDINGS TO THE SURGEONS OFFICE. Discharge Disposition: TRANSFER TO SNF/ECF
[2016-12-23 12:19] VITALS: BP 120/58; PULSE 76
== END 2016-12-23 14:03 | DRG 235 ==
LOC: 6SEL 16:45 → 6ICU 12-14 07:47 → 6SEL 12-18 14:00
PROVIDERS: ADMIT Family Medicine; ATTEND Surgery
PROC: 02100Z9 Bypass Coronary Artery, One Artery from Left Internal Mammary, Open Approach (ICD-10-PCS; 2016-12-14)
PROC: 06BQ4ZZ Excision of Left Saphenous Vein, Percutaneous Endoscopic Approach (ICD-10-PCS; 2016-12-14)
PROC: 5A1221Z Performance of Cardiac Output, Continuous (ICD-10-PCS; 2016-12-14)
PROC: 0BJ08ZZ Inspection of Tracheobronchial Tree, Via Natural or Artificial Opening Endoscopic (ICD-10-PCS; 2016-12-14)
PROC: 021109W Bypass Coronary Artery, Two Arteries from Aorta with Autologous Venous Tissue, Open Approach (ICD-10-PCS; principal; 2016-12-14 08:00)
DX: I21.4 Non-ST elevation (NSTEMI) myocardial infarction (principal); I50.43 Acute on chronic combined systolic (congestive) and diastolic (congestive) heart failure; J96.21 Acute and chronic respiratory failure with hypoxia; J96.22 Acute and chronic respiratory failure with hypercapnia; E87.2 Acidosis; J93.82 Other air leak; J44.1 Chronic obstructive pulmonary disease with (acute) exacerbation; J98.11 Atelectasis; G25.0 Essential tremor; I48.0 Paroxysmal atrial fibrillation; J84.10 Pulmonary fibrosis, unspecified; J98.2 Interstitial emphysema; I65.21 Occlusion and stenosis of right carotid artery; E78.5 Hyperlipidemia, unspecified; E66.9 Obesity, unspecified; I11.0 Hypertensive heart disease with heart failure; D64.9 Anemia, unspecified; F12.90 Cannabis use, unspecified, uncomplicated; F17.200 Nicotine dependence, unspecified, uncomplicated; F41.1 Generalized anxiety disorder; I25.10 Atherosclerotic heart disease of native coronary artery without angina pectoris; I25.5 Ischemic cardiomyopathy; M19.90 Unspecified osteoarthritis, unspecified site; J45.30 Mild persistent asthma, uncomplicated; I34.0 Nonrheumatic mitral (valve) insufficiency; R45.1 Restlessness and agitation; I49.3 Ventricular premature depolarization
CPT/HCPCS: 36600; 36620; 71010; 71020; 80048; 80053; 80061; 80074; 81001; 82330; 82805; 83036; 83735; 83880; 84100; 84132; 84439; 84443; 85025; 85520; 85610; 85730; 86022; 86850; 86891; 86900; 86901; 86920; 87070; 87086; 87205; 93312; 93320; 93325; 93880; 93923; 93970; 94002; 94003; 94060; 94640; 94726; 94729; 94760

== ENCOUNTER → 2017-05-09 | Outpatient (CLI) | payer OTHER ==
--- NOTE | 2017-05-11 10:09 | ECHOF ---
Referral Reason:Chest Pain R07.9 MEASUREMENTS -------- HEIGHT: 182.9 cm WEIGHT: 92.5 kg BP: 151/70 RVIDd: 3.2 cm (< 3.3) IVSd: 1.2 cm (0.6 - 1.1) LVIDd: 4.7 cm (3.9 - 5.3) LVPWd: 1.4 cm (0.6 - 1.1) IVSs: 1.5 cm LVIDs: 3.9 cm LVPWs: 1.7 cm LA Diam: 3.8 cm (2.7 - 3.8) LAESV Index (A-L): 20.82 ml/m Ao Diam: 3.5 cm (2.0 - 3.7) AV Cusp: 2.0 cm (1.5 - 2.6) MV EXCURSION: 18.438 mm (> 18.000) MV EF SLOPE: 112 mm/s (70 - 150) EPSS: 0.9 cm MV E Ashish: 0.45 m/s MV DecT: 324 ms MV A Ashish: 0.74 m/s MV E/A Ratio: 0.61 RAP: 5.00 mmHg RVSP: 30.82 mmHg FINDINGS -------- Sinus rhythm. This was a technically adequate study. The left ventricular size is normal. There is moderate concentric left ventricular hypertrophy. Overall left ventricular systolic function is mild-moderately impaired with, an EF between 40 - 45 %. Basal inferior LV wall motion is hypokinetic. Basal inferoseptal LV wall motion is hypokinetic. The right ventricle is normal in size and function. Normal LA size by volume 22+/-6 ml/m2. The right atrium is normal in size. Aortic valve is trileaflet and is mildly thickened. Mild mitral annular calcification present. Trace tricuspid regurgitation present. Right ventricular systolic pressure is normal at < 35 mmHg. The pulmonic valve was not well visualized. The aortic root, ascending aorta and aortic arch are normal. Normal inferior vena cava with normal inspiratory collapse consistent with estimated right atrial pressure of 5 mmHg. The pericardium is normal. CONCLUSIONS -------- 1. Sinus rhythm. 2. The right atrium is normal in size. 3. Aortic valve is trileaflet and is mildly thickened. 4. Mild mitral annular calcification present. 5. Trace tricuspid regurgitation present. 6. Right ventricular systolic pressure is normal at < 35 mmHg. 7. The pulmonic valve was not well visualized. 8. The aortic root, ascending aorta and aortic arch are normal. 9. Normal inferior vena cava with normal inspiratory collapse consistent with estimated right atrial pressure of 5 mmHg. 10. The pericardium is normal. 11. This was a technically adequate study. 12. The left ventricular size is normal. 13. There is moderate concentric left ventricular hypertrophy. 14. Overall left ventricular systolic function is mild-moderately impaired with, an EF between 40 - 45 %. 15. Basal inferior LV wall motion is hypokinetic. 16. Basal inferoseptal LV wall motion is hypokinetic. 17. The right ventricle is normal in size and function. 18. Normal LA size by volume 22+/-6 ml/m2. [employer] RECOVERY OPERATOR: Germania Mendoza RDCS
== END | disposition home or self-care (01) ==
LOC: RADECHMAIN 13:25
PROVIDERS: ATTEND Internal Medicine Cardiovascular Disease
DX: I07.1 Rheumatic tricuspid insufficiency (principal); I35.8 Other nonrheumatic aortic valve disorders; I05.9 Rheumatic mitral valve disease, unspecified; I10 Essential (primary) hypertension
CPT/HCPCS: 93306

== ENCOUNTER → 2017-11-17 | Outpatient (CLI) | payer MEDICARE, OTHER ==
--- NOTE | 2017-11-17 14:08 | CT ---
EXAMINATION TYPE: CT lumbar spine wo con DATE OF EXAM: 11/17/2017 COMPARISON: NONE HISTORY: Low back pain into bilateral buttocks CT DLP: 700 mGycm CONTRAST: Unenhanced CT of the lumbar spine was performed. Bone and soft tissue window settings are submitted as well as coronal and sagittal reconstructions. L1-L2: Normal disc space height. No disc herniation protrusion or central stenosis. No facet joint arthropathy. No evidence for foraminal encroachment. Mild ventral spondylosis. L2-L3: Mild degenerative disc space narrowing. Circumferential disc bulge moderate in degree. Effacem ent of the ventral thecal sac with bilateral lateral recess stenosis and mild central stenosis. Ventr al spondylosis identified. Facet joint arthropathy seen. No paulo disc herniation. L3-L4: Mild to moderate degenerative disc space narrowing. Circumferential disc bulge moderate in deg ree. Effacement of the ventral thecal sac with bilateral lateral recess stenosis and mild central praveen nosis. Ventral spondylosis identified. Facet joint arthropathy seen. No paulo disc herniation. L4-L5: Grade 1 retrolisthesis L4 and L5 of 4.8 mm. Disc herniation is difficult to exclude. Vacuum di sc changes noted. Moderate central stenosis. Facet joint arthropathy seen. Bilateral foraminal encroa chment. L5-S1: Normal disc space height. No disc herniation protrusion or central stenosis. No facet joint arthropathy. No evidence for foraminal encroachment. No paraspinal masses are identified. Lumbar segments are free if fracture. IMPRESSION: 1. Multilevel degenerative disc disease. 2. Multilevel central stenosis at L2-3, L3-4 and L4-5. 3. Grade 1 retrolisthesis L4 and L5.
== END | disposition home or self-care (01) ==
LOC: RADCTMAIN 13:01
PROVIDERS: ATTEND Nurse Practitioner Family
DX: M48.061 Spinal stenosis, lumbar region without neurogenic claudication (principal); M43.16 Spondylolisthesis, lumbar region; M51.36 Other intervertebral disc degeneration, lumbar region
CPT/HCPCS: 72131

== ENCOUNTER 2018-01-20 14:25 | Emergency (ER) | payer MEDICARE, OTHER ==
[2018-01-20] MEDS ORDERED: SODIUM CHLORIDE 0.9% 1,000 ML IV STA (14:56)
[2018-01-20] MEDS ORDERED: MECLIZINE 12.5 MG TAB PO STA (14:56)
[2018-01-20] MEDS ORDERED: METOCLOPRAMIDE 5 MG/ML 2 ML VIAL IVP STA (14:56)
--- NOTE | 2018-01-20 14:59 | ED ---
General Adult HPI - General Chief complaint: Dizziness Stated complaint: Lightheaded Time Seen by Provider: 01/20/18 14:51 Source: patient, RN notes reviewed Mode of arrival: wheelchair Limitations: no limitations - History of Present Illness Initial comments: Patient is a pleasant 67-year-old male presenting to the emergency Department with complaints of dizziness. Patient states this is a chronic problem for him. Patient states he has had multiple previous brain CTs for this. Patient also states he has had recent visits for both this and dyspnea. Patient states he was recently diagnosed with pneumonia. Patient states his breathing has actually started to improve at this time and he no longer feels short of breath. Patient does not feel he needs a nebulizer treatment at this time. No new weakness. No confusion. Symptoms worsen with position changes and upright position. Patient has known stenosis in his neck. - Related Data Home Medications Medication Instructions Recorded Confirmed Ipratropium-Albuterol Nebulize 3 ml INHALATION RT-Q6H PRN 11/03/17 01/20/18 [Duoneb 0.5 mg-3 mg/3 ml Soln] Metoprolol Tartrate [Lopressor] 25 mg PO BID 11/03/17 01/20/18 Aspirin EC [Ecotrin Low Dose] 81 mg PO DAILY 01/20/18 01/20/18 Ergocalciferol [Vitamin D2] 50,000 unit PO FR 01/20/18 01/20/18 Famotidine [Pepcid] 20 mg PO BID 01/20/18 01/20/18 Furosemide [Lasix] 20 mg PO BID 01/20/18 01/20/18 Nicotine 21Mg/24Hr Patch [Habitrol 1 patch TRANSDERM DAILY 01/20/18 01/20/18 21Mg/24Hr Patch] predniSONE 10 mg PO DAILY 01/20/18 01/20/18 Previous Rx's Medication Instructions Recorded Atorvastatin [Lipitor] 40 mg PO DAILY tab 12/23/16 amLODIPine [Norvasc] 10 mg PO DAILY tab 12/23/16 Allergies Allergy/AdvReac Type Severity Reaction Status Date / Time No Known Allergies Allergy Verified 01/20/18 14:45 Review of Systems ROS Statement: Those systems with pertinent positive or pertinent negative responses have been documented in the HPI. ROS Other: All systems not noted in ROS Statement are negative. Constitutional: Denies: fever Eyes: Denies: eye pain ENT: Denies: ear pain Respiratory: Denies: cough Cardiovascular: Denies: chest pain Endocrine: Denies: fatigue Gastrointestinal: Denies: abdominal pain Genitourinary: Denies: dysuria Skin: Denies: rash Neurological: Reports: vertigo. Denies: headache, weakness, confusion Past Medical History Past Medical History: Coronary Artery Disease (CAD), COPD, Hyperlipidemia, Hypertension, Myocardial Infarction ([place]), Pneumonia Additional Past Medical History / Comment(s): '"tremors", emphysema, back pain - pt stated that he was supposed to be getting a CT scan of his lower back over the next few days. Last Myocardial Infarction Date:: 12/2015 History of Any Multi-Drug Resistant Organisms: None Reported Past Surgical History: Coronary Bypass/CABG, Heart Catheterization, Hernia Repair, Tonsillectomy Additional Past Surgical History / Comment(s): rt inguinal hernia repair, 3 vessel cabg. Past Anesthesia/Blood Transfusion Reactions: No Reported Reaction Additional Past Anesthesia/Blood Transfusion Reaction / Comment(s): stated never had any blood transfusions Past Psychological History: No Psychological Hx Reported, Depression Smoking Status: Current every day smoker Past Alcohol Use History: None Reported Past Drug Use History: Marijuana - Past Family History Mother Family Medical History: CVA/TIA Father Additional Family Medical History / Comment(s): aaa repair General Exam Limitations: no limitations General appearance: alert, in no apparent distress, other (Resting tremor which patient states is normal) Head exam: Present: atraumatic Eye exam: Present: normal appearance, PERRL, EOMI. Absent: nystagmus ENT exam: Present: normal oropharynx Neck exam: Present: normal inspection Respiratory exam: Present: normal lung sounds bilaterally Cardiovascular Exam: Present: regular rate, normal rhythm GI/Abdominal exam: Present: soft. Absent: tenderness Extremities exam: Present: normal inspection Neurological exam: Present: alert, oriented X3, CN II-XII intact. Absent: motor sensory deficit Expanded Neurological exam: Present: protecting the airway Speech: Present: fluid speech Cranial nerves: EOM's Intact: Normal Motor strength exam: RUE: 5, LUE: 5, RLE: 5, LLE: 5 Eye Response: (4) open spontaneously Motor Response: (6) obeys commands Verbal Response: (5) oriented Psychiatric exam: Present: normal affect, normal mood Skin exam: Present: normal color Course Vital Signs 01/20/18 01/20/18 01/20/18 14:31 15:23 16:11 Temperature 97.8 F Pulse Rate 52 L 50 L 50 L Respiratory 20 20 20 Rate Blood Pressure 134/75 133/70 126/62 O2 Sat by Pulse 96 95 95 Oximetry EKG Findings - EKG Comments: EKG Findings:: Sinus bradycardia 56. MD 174. QRS 100. QT 398. QTC 384. Normal axis. Normal QRS. Nonspecific ST-T. Motion artifact is present. Medical Decision Making - Medical Decision Making Patient reevaluated and significantly improved. Patient no longer feels dizzy. Patient states he is comfortable with discharge home. Patient updated on results and need for follow-up. Patient is receptive to receiving scopolamine patch until follow-up with his doctor on Tuesday. - Lab Data Result diagrams: 01/20/18 15:05 01/20/18 15:05 Lab Results 01/20/18 01/20/18 Range/Units 15:05 15:05 WBC 11.4 H (3.8-10.6) k/uL RBC 4.69 (4.30-5.90) m/uL Hgb 13.9 (13.0-17.5) gm/dL Hct 41.6 (39.0-53.0) % MCV 88.7 (80.0-100.0) fL MCH 29.6 (25.0-35.0) pg MCHC 33.4 (31.0-37.0) g/dL RDW 13.5 (11.5-15.5) % Plt Count 160 (150-450) k/uL Neutrophils % 79 % Lymphocytes % 14 % Monocytes % 5 % Eosinophils % 1 % Basophils % 0 % Neutrophils # 9.1 H (1.3-7.7) k/uL Lymphocytes # 1.6 (1.0-4.8) k/uL Monocytes # 0.5 (0-1.0) k/uL Eosinophils # 0.1 (0-0.7) k/uL Basophils # 0.1 (0-0.2) k/uL Sodium 142 (137-145) mmol/L Potassium 3.9 (3.5-5.1) mmol/L Chloride 104 (98-107) mmol/L Carbon Dioxide 27 (22-30) mmol/L Anion Gap 11 mmol/L BUN 16 (9-20) mg/dL Creatinine 0.89 (0.66-1.25) mg/dL Est GFR (CKD-EPI)AfAm >90 (>60 ml/min/1.73 sqM) Est GFR (CKD-EPI)NonAf >90 (>60 ml/min/1.73 sqM) Glucose 124 H (74-99) mg/dL Calcium 9.1 (8.4-10.2) mg/dL Total Bilirubin 0.6 (0.2-1.3) mg/dL AST 26 (17-59) U/L ALT 33 (21-72) U/L Alkaline Phosphatase 96 (38-126) U/L Total Protein 6.1 L (6.3-8.2) g/dL Albumin 3.7 (3.5-5.0) g/dL Disposition Clinical Impression: Dizziness Disposition: HOME SELF-CARE Condition: Stable Instructions: Dizziness (ED) Additional Instructions: Please only take half of your Lopressor dose until follow-up with your doctor on Tuesday. Return for increased dizziness, weakness, worsening or changing symptoms or other concerns. Referrals: Donita Darden MD [Primary Care Provider] - 1-2 days Time of Disposition: 16:27
[2018-01-20 15:19] LABS: Basophils # (A) 0.1 k/uL (0-0.2); Basophils % (A) 0 %; Eosinophils # (A) 0.1 k/uL (0-0.7); Eosinophils % (A) 1 %; HCT 41.6 % (39.0-53.0); HGB 13.9 gm/dL (13.0-17.5); Lymphocytes # (A) 1.6 k/uL (1.0-4.8); Lymphocytes % (A) 14 %; MCH 29.6 pg (25.0-35.0); MCHC 33.4 g/dL (31.0-37.0); MCV 88.7 fL (80.0-100.0); Mean Platelet Volume 7.5; Monocytes # (A) 0.5 k/uL (0-1.0); Monocytes % (A) 5 %; Neutrophils # (A) 9.1 k/uL (1.3-7.7); Neutrophils % (A) 79 %; Platelet Count 160 k/uL (150-450); RBC 4.69 m/uL (4.30-5.90); RDW 13.5 % (11.5-15.5); WBC 11.4 k/uL (3.8-10.6)
--- NOTE | 2018-01-20 15:21 | XR ---
EXAMINATION TYPE: XR chest 2V DATE OF EXAM: 01/20/2018 COMPARISON: 11/03/2017 HISTORY: Shortness of breath TECHNIQUE: Frontal and lateral views of the chest are obtained. FINDINGS: Scattered senescent parenchymal changes noted. Hyperinflation compatible with COPD. Previously descri bed nodular density right upper lobe is poorly demonstrated on today's study. No evidence for infiltrate. No evidence for atelectasis. Heart size is stable. Mediastinal structures are stable and grossly unremarkable. No evidence for hilar prominence. Degenerative changes dorsal spine. IMPRESSION: 1. No evidence for acute pulmonary disease.
[2018-01-20 15:28] LABS: ALT 33 U/L (21-72); AST 26 U/L (17-59); Albumin 3.7 g/dL (3.5-5.0); Alkaline Phosphatase 96 U/L (38-126); Anion Gap 11 mmol/L; Blood Urea Nitrogen 16 mg/dL (9-20); Calcium 9.1 mg/dL (8.4-10.2); Carbon Dioxide 27 mmol/L (22-30); Chloride 104 mmol/L (98-107); Glucose 124 mg/dL (74-99); Potassium 3.9 mmol/L (3.5-5.1); Sodium 142 mmol/L (137-145); Total Bilirubin 0.6 mg/dL (0.2-1.3); Total Protein 6.1 g/dL (6.3-8.2)
[2018-01-20] MEDS ORDERED: SCOPOLAMINE 1.5MG/72HR PATCH TRANSDERM STA (16:20)
[2018-01-20 16:35] VITALS: BP 120/66; PULSE 51; RESP 18; TEMP 97
== END 2018-01-20 16:41 | disposition home or self-care (01) ==
LOC: EC 14:25
DX: R42 Dizziness and giddiness (principal); R06.00 Dyspnea, unspecified; I25.10 Atherosclerotic heart disease of native coronary artery without angina pectoris; I25.2 Old myocardial infarction; I10 Essential (primary) hypertension; F17.200 Nicotine dependence, unspecified, uncomplicated; Z79.82 Long term (current) use of aspirin; Z79.899 Other long term (current) drug therapy; Z79.52 Long term (current) use of systemic steroids
CPT/HCPCS: 36415; 93005; 80053; 85025; 71046; 99284; 96374; 96361; J2765

== ENCOUNTER 2018-02-21 15:57 | Emergency (ER) | payer MEDICARE, OTHER ==
--- NOTE | 2018-02-21 16:04 | ED ---
General Adult HPI - General Chief complaint: Shortness of Breath Stated complaint: KALPESH, anxiety Time Seen by Provider: 02/21/18 16:02 Source: patient, EMS, RN notes reviewed, old records reviewed Mode of arrival: EMS Limitations: no limitations - History of Present Illness Initial comments: This is a 67-year-old male to the ER for evaluation of shortness of breath plus anxiety. History of COPD history of anxiety and tremor. Patient a mild tremor now feeling better after breathing treatment per EMS. Patient denies any chest pain no significant fevers mild cough no congestion or shortness of breath currently. Patient is recent travel history no known sick contacts. No recent hospitalizations. Patient states is an ER similar issue a couple weeks ago, states all symptoms have been improved - Related Data Home Medications Medication Instructions Recorded Confirmed Ipratropium-Albuterol Nebulize 3 ml INHALATION RT-Q6H PRN 11/03/17 02/21/18 [Duoneb 0.5 mg-3 mg/3 ml Soln] Metoprolol Tartrate [Lopressor] 25 mg PO DAILY 11/03/17 02/21/18 Aspirin EC [Ecotrin Low Dose] 81 mg PO DAILY 01/20/18 02/21/18 Ergocalciferol [Vitamin D2] 50,000 unit PO FR 01/20/18 02/21/18 Famotidine [Pepcid] 20 mg PO BID 01/20/18 02/21/18 Furosemide [Lasix] 20 mg PO BID 01/20/18 02/21/18 Nicotine 21Mg/24Hr Patch [Habitrol 1 patch TRANSDERM DAILY 01/20/18 02/21/18 21Mg/24Hr Patch] Budesonide [Pulmicort] 0.5 mg INHALATION BID 02/21/18 02/21/18 LORazepam [Ativan] 0.5 mg PO TID PRN 02/21/18 02/21/18 Previous Rx's Medication Instructions Recorded Atorvastatin [Lipitor] 40 mg PO DAILY tab 12/23/16 amLODIPine [Norvasc] 10 mg PO DAILY tab 12/23/16 Allergies Allergy/AdvReac Type Severity Reaction Status Date / Time No Known Allergies Allergy Verified 02/21/18 16:03 Review of Systems ROS Statement: Those systems with pertinent positive or pertinent negative responses have been documented in the HPI. ROS Other: All systems not noted in ROS Statement are negative. Past Medical History Past Medical History: Coronary Artery Disease (CAD), COPD, Hyperlipidemia, Hypertension, Myocardial Infarction ([place]), Pneumonia Additional Past Medical History / Comment(s): '"tremors", emphysema, back pain - pt stated that he was supposed to be getting a CT scan of his lower back over the next few days. Last Myocardial Infarction Date:: 12/2015 History of Any Multi-Drug Resistant Organisms: None Reported Past Surgical History: Coronary Bypass/CABG, Heart Catheterization, Hernia Repair, Tonsillectomy Additional Past Surgical History / Comment(s): rt inguinal hernia repair, 3 vessel cabg. Past Anesthesia/Blood Transfusion Reactions: No Reported Reaction Additional Past Anesthesia/Blood Transfusion Reaction / Comment(s): stated never had any blood transfusions Past Psychological History: Anxiety, Depression Smoking Status: Current every day smoker Past Alcohol Use History: None Reported Past Drug Use History: Marijuana - Past Family History Mother Family Medical History: CVA/TIA Father Additional Family Medical History / Comment(s): aaa repair General Exam Limitations: no limitations General appearance: alert, in no apparent distress, anxious Head exam: Present: atraumatic, normocephalic, normal inspection Eye exam: Present: normal appearance, PERRL, EOMI. Absent: scleral icterus, conjunctival injection, periorbital swelling ENT exam: Present: normal exam, mucous membranes moist Neck exam: Present: normal inspection. Absent: tenderness, meningismus, lymphadenopathy Respiratory exam: Present: wheezes. Absent: respiratory distress, rales, rhonchi, stridor Cardiovascular Exam: Present: regular rate, normal rhythm, normal heart sounds. Absent: systolic murmur, diastolic murmur, rubs, gallop, clicks GI/Abdominal exam: Present: soft, normal bowel sounds. Absent: distended, tenderness, guarding, rebound, rigid Extremities exam: Present: normal inspection, full ROM, normal capillary refill. Absent: tenderness, pedal edema, joint swelling, calf tenderness Back exam: Present: normal inspection Neurological exam: Present: alert, oriented X3, CN II-XII intact Psychiatric exam: Present: normal affect, normal mood Skin exam: Present: warm, dry, intact, normal color. Absent: rash Course Vital Signs 02/21/18 02/21/18 16:01 17:17 Temperature 98.3 F Pulse Rate 72 72 Respiratory 18 18 Rate Blood Pressure 160/73 129/62 O2 Sat by Pulse 97 97 Oximetry - Reevaluation(s) Reevaluation #1: 02/21/18 18:35 Patient has improved results of anxiolysis and breathing treatment. States he feels fine going home EKG Findings - EKG Comments: EKG Findings:: AG shows sinus rhythm rate of 75, GA 160, QRS 96, QTc 422 Medical Decision Making - Medical Decision Making 67 male the ER for evaluation shortness of cough congestion COPD exacerbation mixed with anxiety and essential tremor. Patient's symptoms are much improved, resolved resting comfortably sleeping in bed. Patient okay for discharge - Lab Data Result diagrams: 02/21/18 16:00 02/21/18 16:00 Lab Results 02/21/18 02/21/18 02/21/18 Range/Units 16:00 16:00 16:00 WBC 12.5 H (3.8-10.6) k/uL RBC 4.74 (4.30-5.90) m/uL Hgb 14.2 (13.0-17.5) gm/dL Hct 42.0 (39.0-53.0) % MCV 88.6 (80.0-100.0) fL MCH 30.0 (25.0-35.0) pg MCHC 33.9 (31.0-37.0) g/dL RDW 13.3 (11.5-15.5) % Plt Count 181 (150-450) k/uL Neutrophils % 72 % Lymphocytes % 19 % Monocytes % 6 % Eosinophils % 2 % Basophils % 0 % Neutrophils # 9.0 H (1.3-7.7) k/uL Lymphocytes # 2.4 (1.0-4.8) k/uL Monocytes # 0.7 (0-1.0) k/uL Eosinophils # 0.2 (0-0.7) k/uL Basophils # 0.0 (0-0.2) k/uL PT (9.0-12.0) sec INR (<1.2) APTT (22.0-30.0) sec Sodium 140 (137-145) mmol/L Potassium 4.1 (3.5-5.1) mmol/L Chloride 106 (98-107) mmol/L Carbon Dioxide 23 (22-30) mmol/L Anion Gap 11 mmol/L BUN 20 (9-20) mg/dL Creatinine 1.00 (0.66-1.25) mg/dL Est GFR (CKD-EPI)AfAm >90 (>60 ml/min/1.73 sqM) Est GFR (CKD-EPI)NonAf 79 (>60 ml/min/1.73 sqM) Glucose 105 H (74-99) mg/dL Calcium 9.2 (8.4-10.2) mg/dL Magnesium 2.0 (1.6-2.3) mg/dL Total Bilirubin 1.1 (0.2-1.3) mg/dL AST 15 L (17-59) U/L ALT 21 (21-72) U/L Alkaline Phosphatase 87 (38-126) U/L Total Creatine Kinase 43 L (55-170) U/L CK-MB (CK-2) 1.0 (0.0-2.4) ng/mL CK-MB (CK-2) Rel Index 2.3 Troponin I 0.021 (0.000-0.034) ng/mL NT-Pro-B Natriuret Pep pg/mL Total Protein 6.0 L (6.3-8.2) g/dL Albumin 3.6 (3.5-5.0) g/dL 02/21/18 02/21/18 Range/Units 16:00 16:00 WBC (3.8-10.6) k/uL RBC (4.30-5.90) m/uL Hgb (13.0-17.5) gm/dL Hct (39.0-53.0) % MCV (80.0-100.0) fL MCH (25.0-35.0) pg MCHC (31.0-37.0) g/dL RDW (11.5-15.5) % Plt Count (150-450) k/uL Neutrophils % % Lymphocytes % % Monocytes % % Eosinophils % % Basophils % % Neutrophils # (1.3-7.7) k/uL Lymphocytes # (1.0-4.8) k/uL Monocytes # (0-1.0) k/uL Eosinophils # (0-0.7) k/uL Basophils # (0-0.2) k/uL PT 10.4 (9.0-12.0) sec INR 1.1 (<1.2) APTT 22.5 (22.0-30.0) sec Sodium (137-145) mmol/L Potassium (3.5-5.1) mmol/L Chloride (98-107) mmol/L Carbon Dioxide (22-30) mmol/L Anion Gap mmol/L BUN (9-20) mg/dL Creatinine (0.66-1.25) mg/dL Est GFR (CKD-EPI)AfAm (>60 ml/min/1.73 sqM) Est GFR (CKD-EPI)NonAf (>60 ml/min/1.73 sqM) Glucose (74-99) mg/dL Calcium (8.4-10.2) mg/dL Magnesium (1.6-2.3) mg/dL Total Bilirubin (0.2-1.3) mg/dL AST (17-59) U/L ALT (21-72) U/L Alkaline Phosphatase (38-126) U/L Total Creatine Kinase (55-170) U/L CK-MB (CK-2) (0.0-2.4) ng/mL CK-MB (CK-2) Rel Index Troponin I (0.000-0.034) ng/mL NT-Pro-B Natriuret Pep 769 pg/mL Total Protein (6.3-8.2) g/dL Albumin (3.5-5.0) g/dL - Radiology Data Radiology results: report reviewed (Chest x-rays negative for acute disease), image reviewed Disposition Clinical Impression: COPD (chronic obstructive pulmonary disease), Anxiety, Tremor Disposition: HOME SELF-CARE Condition: Good Instructions: Chronic Bronchitis (ED), Acute Bronchitis (ED) Is patient prescribed a controlled substance at discharge?: No If prescribed controlled substance>3 days was MAPS reviewed?: No When asked, does pt state using other controlled substances?: No Referrals: Donita Darden MD [Primary Care Provider] - 1-2 days
[2018-02-21] MEDS ORDERED: LORazepam 2 MG/ML INJ IV STA (16:06)
[2018-02-21] MEDS ORDERED: SODIUM CHLORIDE 0.9% 1,000 ML IV STA (16:06)
[2018-02-21] MEDS ORDERED: methylPREDNISolone SOD SUCCI 125 MG/2 ML VIAL IV STA (16:07)
[2018-02-21 16:17] LABS: Basophils % (A) 0 %; Eosinophils # (A) 0.2 k/uL (0-0.7); Eosinophils % (A) 2 %; HGB 14.2 gm/dL (13.0-17.5); Lymphocytes # (A) 2.4 k/uL (1.0-4.8); Lymphocytes % (A) 19 %; MCHC 33.9 g/dL (31.0-37.0); MCV 88.6 fL (80.0-100.0); Mean Platelet Volume 7.8; Monocytes # (A) 0.7 k/uL (0-1.0); Monocytes % (A) 6 %; Neutrophils % (A) 72 %; Platelet Count 181 k/uL (150-450); RBC 4.74 m/uL (4.30-5.90); RDW 13.3 % (11.5-15.5); WBC 12.5 k/uL (3.8-10.6)
--- NOTE | 2018-02-21 16:23 | XR ---
EXAMINATION TYPE: XR chest 2V DATE OF EXAM: 02/21/2018 COMPARISON: 01/20/2019 HISTORY: Shortness of breath TECHNIQUE: Frontal and lateral views of the chest are obtained. FINDINGS: There is pulmonary per inflation and flattening of the diaphragms compatible with underlyi ng COPD. Mild multilevel degenerative changes are appreciated of the thoracic spine. Engorgement of h ilar vasculature may relate to underlying pulmonary arterial hypertension. Cardiomediastinal silhouet te is not enlarged with post CABG changes the chest. IMPRESSION: No acute cardiopulmonary process.
[2018-02-21 16:26] LABS: INR 1.1 (<1.2); Partial Thromboplastin Time 22.5 sec (22.0-30.0); Prothrombin Time 10.4 sec (9.0-12.0)
[2018-02-21 16:27] LABS: ALT 21 U/L (21-72); AST 15 U/L (17-59); Albumin 3.6 g/dL (3.5-5.0); Alkaline Phosphatase 87 U/L (38-126); Anion Gap 11 mmol/L; Blood Urea Nitrogen 20 mg/dL (9-20); Calcium 9.2 mg/dL (8.4-10.2); Carbon Dioxide 23 mmol/L (22-30); Chloride 106 mmol/L (98-107); Glucose 105 mg/dL (74-99); Potassium 4.1 mmol/L (3.5-5.1); Sodium 140 mmol/L (137-145); Total Bilirubin 1.1 mg/dL (0.2-1.3)
[2018-02-21 16:43] LABS: Troponin I 0.021 ng/mL (0.000-0.034)
[2018-02-21 18:53] VITALS: BP 149/74; PULSE 75; RESP 20; TEMP 97.5
== END 2018-02-21 18:53 | disposition home or self-care (01) ==
LOC: EC 15:57
DX: J44.9 Chronic obstructive pulmonary disease, unspecified (principal); F41.9 Anxiety disorder, unspecified; R25.1 Tremor, unspecified; I25.10 Atherosclerotic heart disease of native coronary artery without angina pectoris; I10 Essential (primary) hypertension; I25.2 Old myocardial infarction; F17.200 Nicotine dependence, unspecified, uncomplicated; Z95.1 Presence of aortocoronary bypass graft; Z95.818 Presence of other cardiac implants and grafts; Z79.82 Long term (current) use of aspirin; Z79.51 Long term (current) use of inhaled steroids; Z79.899 Other long term (current) drug therapy
CPT/HCPCS: 99285; 96374; 96375; 36415; 93005; 83880; 80053; 82550; 82553; 83735; 84484; 85025; 85610; 85730; 71046; J2060; J2930

== ENCOUNTER 2018-03-18 13:48 | Emergency (ER) | payer MEDICARE, OTHER ==
[2018-03-18 13:54] VITALS: RESP 18
[2018-03-18] MEDS: SODIUM CHLORIDE 0.9% 500 ML IV SCH ×2 (14:35→14:52)
[2018-03-18 14:47] LABS: Basophils % (A) 0 %; Eosinophils # (A) 0.1 k/uL (0-0.7); Eosinophils % (A) 1 %; HCT 41.1 % (39.0-53.0); HGB 14.3 gm/dL (13.0-17.5); Lymphocytes # (A) 1.6 k/uL (1.0-4.8); Lymphocytes % (A) 15 %; MCH 31.1 pg (25.0-35.0); MCHC 34.7 g/dL (31.0-37.0); MCV 89.8 fL (80.0-100.0); Mean Platelet Volume 7.3; Monocytes # (A) 0.8 k/uL (0-1.0); Monocytes % (A) 8 %; Neutrophils # (A) 7.5 k/uL (1.3-7.7); Neutrophils % (A) 74 %; Platelet Count 147 k/uL (150-450); RBC 4.58 m/uL (4.30-5.90); RDW 13.5 % (11.5-15.5); WBC 10.1 k/uL (3.8-10.6)
[2018-03-18 14:51] LABS: ALT 25 U/L (21-72); AST 17 U/L (17-59); Albumin 3.5 g/dL (3.5-5.0); Alkaline Phosphatase 73 U/L (38-126); Anion Gap 12 mmol/L; Blood Urea Nitrogen 11 mg/dL (9-20); Carbon Dioxide 26 mmol/L (22-30); Chloride 104 mmol/L (98-107); Glucose 89 mg/dL (74-99); Sodium 142 mmol/L (137-145); Total Protein 5.7 g/dL (6.3-8.2)
--- NOTE | 2018-03-18 15:01 | ED ---
Fever HPI - General Chief Complaint: Fever Stated Complaint: headache on left side s/p carotid sx 2 days ago Time Seen by Provider: 03/18/18 14:35 Source: patient, RN notes reviewed Mode of arrival: wheelchair Limitations: no limitations - History of Present Illness Initial Comments: This is a 67-year-old male who had a left carotid endarterectomy done 2 days ago who presents today with complaints of a left-sided headache and fever he denies any earache sore throat rhinorrhea does have a cough of clear phlegm no dysuria no hematuria no other symptoms at this time he denies any drainage or discharge from the endarterectomy site. No stiffness in his neck is some minimal postop pain. He is a smoker he states he did smoke cigarettes within the last hour prior to arrival MD Complaint: fever, other - Related Data Home Medications Medication Instructions Recorded Confirmed Ipratropium-Albuterol Nebulize 3 ml INHALATION RT-Q6H PRN 11/03/17 03/18/18 [Duoneb 0.5 mg-3 mg/3 ml Soln] Metoprolol Tartrate [Lopressor] 25 mg PO DAILY 11/03/17 03/18/18 Aspirin EC [Ecotrin Low Dose] 81 mg PO DAILY 01/20/18 03/18/18 Ergocalciferol [Vitamin D2] 50,000 unit PO FR 01/20/18 03/18/18 Famotidine [Pepcid] 20 mg PO BID 01/20/18 03/18/18 Furosemide [Lasix] 20 mg PO BID 01/20/18 03/18/18 Nicotine 21Mg/24Hr Patch [Habitrol 1 patch TRANSDERM DAILY 01/20/18 03/18/18 21Mg/24Hr Patch] Budesonide [Pulmicort] 0.5 mg INHALATION BID 02/21/18 03/18/18 LORazepam [Ativan] 0.5 mg PO TID PRN 02/21/18 03/18/18 Previous Rx's Medication Instructions Recorded Atorvastatin [Lipitor] 40 mg PO DAILY tab 12/23/16 amLODIPine [Norvasc] 10 mg PO DAILY tab 12/23/16 Albuterol Sulfate [Proair Hfa] 1 - 2 puff INHALATION Q4H PRN #1 02/21/18 inhaler Clindamycin [Cleocin] 150 mg PO Q6H #40 capsule 03/18/18 Allergies Allergy/AdvReac Type Severity Reaction Status Date / Time No Known Allergies Allergy Verified 02/21/18 16:03 Review of Systems ROS Statement: Those systems with pertinent positive or pertinent negative responses have been documented in the HPI. ROS Other: All systems not noted in ROS Statement are negative. Past Medical History Past Medical History: Coronary Artery Disease (CAD), COPD, Hyperlipidemia, Hypertension, Myocardial Infarction ([place]), Pneumonia Additional Past Medical History / Comment(s): '"tremors", emphysema, back pain - pt stated that he was supposed to be getting a CT scan of his lower back over the next few days. Last Myocardial Infarction Date:: 12/2015 History of Any Multi-Drug Resistant Organisms: None Reported Past Surgical History: Coronary Bypass/CABG, Heart Catheterization, Hernia Repair, Tonsillectomy Additional Past Surgical History / Comment(s): rt inguinal hernia repair, 3 vessel cabg. carotid r side 03/24 Past Anesthesia/Blood Transfusion Reactions: No Reported Reaction Additional Past Anesthesia/Blood Transfusion Reaction / Comment(s): stated never had any blood transfusions Past Psychological History: Anxiety, Depression Smoking Status: Current every day smoker Past Alcohol Use History: None Reported Past Drug Use History: Marijuana - Past Family History Mother Family Medical History: CVA/TIA Father Additional Family Medical History / Comment(s): aaa repair General Exam - General Exam Comments Initial Comments: This is a well-developed well-nourished awake alert oriented 3 male Limitations: no limitations General appearance: alert, in no apparent distress Head exam: Present: atraumatic, normocephalic, normal inspection Eye exam: Present: normal appearance, PERRL, EOMI. Absent: scleral icterus, conjunctival injection, periorbital swelling ENT exam: Present: mucous membranes dry Neck exam: Present: other ((Endarterectomy incision localized postop changes no drainage or discharge no increased temperature no dehiscence no ulceration). Absent: tenderness, meningismus, lymphadenopathy Respiratory exam: Present: normal lung sounds bilaterally. Absent: respiratory distress, wheezes, rales, rhonchi, stridor Cardiovascular Exam: Present: regular rate, normal rhythm, normal heart sounds. Absent: systolic murmur, diastolic murmur, rubs, gallop, clicks GI/Abdominal exam: Present: soft, normal bowel sounds. Absent: distended, tenderness, guarding, rebound, rigid Extremities exam: Present: normal inspection, full ROM, normal capillary refill. Absent: tenderness, pedal edema, joint swelling, calf tenderness Back exam: Present: normal inspection Neurological exam: Present: alert, oriented X3, CN II-XII intact Psychiatric exam: Present: normal affect, normal mood Skin exam: Present: warm, dry, intact, normal color. Absent: rash Course Vital Signs 03/18/18 03/18/18 03/18/18 13:51 15:02 15:53 Temperature 102.0 F H 99.1 F Pulse Rate 103 H 92 97 Respiratory Rate Blood Pressure 176/82 149/82 150/72 O2 Sat by Pulse 92 L 99 99 Oximetry Medical Decision Making - Medical Decision Making I did discuss the findings with the patient is a candidate for oral medication and outpatient treatment he is in agreement with this he surgical site appears be clear with no evidence of infection or dehiscence. Aspiration is considered patient will be placed on clindamycin - Lab Data Result diagrams: 03/18/18 14:13 03/18/18 14:13 Lab Results 03/18/18 03/18/18 03/18/18 Range/Units 14:13 14:13 14:13 WBC 10.1 (3.8-10.6) k/uL RBC 4.58 (4.30-5.90) m/uL Hgb 14.3 (13.0-17.5) gm/dL Hct 41.1 (39.0-53.0) % MCV 89.8 (80.0-100.0) fL MCH 31.1 (25.0-35.0) pg MCHC 34.7 (31.0-37.0) g/dL RDW 13.5 (11.5-15.5) % Plt Count 147 L (150-450) k/uL Neutrophils % 74 % Lymphocytes % 15 % Monocytes % 8 % Eosinophils % 1 % Basophils % 0 % Neutrophils # 7.5 (1.3-7.7) k/uL Lymphocytes # 1.6 (1.0-4.8) k/uL Monocytes # 0.8 (0-1.0) k/uL Eosinophils # 0.1 (0-0.7) k/uL Basophils # 0.0 (0-0.2) k/uL PT (9.0-12.0) sec INR (<1.2) APTT (22.0-30.0) sec Sodium (137-145) mmol/L Potassium (3.5-5.1) mmol/L Chloride (98-107) mmol/L Carbon Dioxide (22-30) mmol/L Anion Gap mmol/L BUN (9-20) mg/dL Creatinine (0.66-1.25) mg/dL Est GFR (CKD-EPI)AfAm (>60 ml/min/1.73 sqM) Est GFR (CKD-EPI)NonAf (>60 ml/min/1.73 sqM) Glucose (74-99) mg/dL Plasma Lactic Acid Calvin (0.7-2.0) mmol/L Calcium (8.4-10.2) mg/dL Total Bilirubin (0.2-1.3) mg/dL AST (17-59) U/L ALT (21-72) U/L Alkaline Phosphatase (38-126) U/L Total Creatine Kinase 30 L (55-170) U/L CK-MB (CK-2) 1.1 (0.0-2.4) ng/mL CK-MB (CK-2) Rel Index 3.7 Troponin I 0.032 (0.000-0.034) ng/mL Total Protein (6.3-8.2) g/dL Albumin (3.5-5.0) g/dL Influenza Type A RNA Not Detected (Not Detectd) Influenza Type B (PCR) Not Detected (Not Detectd) 03/18/18 03/18/18 03/18/18 Range/Units 14:13 14:13 14:13 WBC (3.8-10.6) k/uL RBC (4.30-5.90) m/uL Hgb (13.0-17.5) gm/dL Hct (39.0-53.0) % MCV (80.0-100.0) fL MCH (25.0-35.0) pg MCHC (31.0-37.0) g/dL RDW (11.5-15.5) % Plt Count (150-450) k/uL Neutrophils % % Lymphocytes % % Monocytes % % Eosinophils % % Basophils % % Neutrophils # (1.3-7.7) k/uL Lymphocytes # (1.0-4.8) k/uL Monocytes # (0-1.0) k/uL Eosinophils # (0-0.7) k/uL Basophils # (0-0.2) k/uL PT 10.2 (9.0-12.0) sec INR 1.0 (<1.2) APTT 21.4 L (22.0-30.0) sec Sodium 142 (137-145) mmol/L Potassium 4.0 (3.5-5.1) mmol/L Chloride 104 (98-107) mmol/L Carbon Dioxide 26 (22-30) mmol/L Anion Gap 12 mmol/L BUN 11 (9-20) mg/dL Creatinine 0.69 (0.66-1.25) mg/dL Est GFR (CKD-EPI)AfAm >90 (>60 ml/min/1.73 sqM) Est GFR (CKD-EPI)NonAf >90 (>60 ml/min/1.73 sqM) Glucose 89 (74-99) mg/dL Plasma Lactic Acid Calvin 2.2 H* (0.7-2.0) mmol/L Calcium 9.0 (8.4-10.2) mg/dL Total Bilirubin 1.0 (0.2-1.3) mg/dL AST 17 (17-59) U/L ALT 25 (21-72) U/L Alkaline Phosphatase 73 (38-126) U/L Total Creatine Kinase (55-170) U/L CK-MB (CK-2) (0.0-2.4) ng/mL CK-MB (CK-2) Rel Index Troponin I (0.000-0.034) ng/mL Total Protein 5.7 L (6.3-8.2) g/dL Albumin 3.5 (3.5-5.0) g/dL Influenza Type A RNA (Not Detectd) Influenza Type B (PCR) (Not Detectd) - EKG Data -: EKG Interpreted by Me EKG shows normal: sinus rhythm (Sinus rhythm with occasional PVCs rate was 89. Interval 148 QRS duration 90 QT since QTC of 366/[address]-T wave configuration.) - Radiology Data Radiology results: report reviewed, image reviewed (I did review the imaging and report is evidence of a mild left lower lobe infiltrate.) Disposition Clinical Impression: Left lower lobe pneumonia, Smoking, Status post carotid endarterectomy, Febrile illness, acute Disposition: HOME SELF-CARE Condition: Good Instructions: Fever in Adults (ED), Pneumonia (ED), How to Stop Smoking (ED) Prescriptions: Clindamycin [Cleocin] 150 mg PO Q6H #40 capsule Is patient prescribed a controlled substance at d/c from ED?: No Referrals: Donita Darden MD [Primary Care Provider] - 1-2 days
[2018-03-18 15:06] LABS: Partial Thromboplastin Time 21.4 sec (22.0-30.0); Prothrombin Time 10.2 sec (9.0-12.0)
[2018-03-18 15:14] LABS: Creatine Kinase MB 1.1 ng/mL (0.0-2.4); Troponin I 0.032 ng/mL (0.000-0.034)
--- NOTE | 2018-03-18 15:32 | XR ---
EXAMINATION TYPE: XR chest 2V DATE OF EXAM: 03/18/2018 COMPARISON: 02/21/2018 HISTORY: Fever. TECHNIQUE: Frontal and lateral views of the chest are obtained. FINDINGS: There is a mild infiltrate at the left lung base. There is no heart failure. There are monika st leads. There are sternal wires. Bony thorax is intact. IMPRESSION: There is mild left lower lobe pneumonia that is new or increased compared to old exam. N o heart failure. Inspiration is decreased compared to old exam.
[2018-03-18] MEDS ORDERED: SODIUM CHLORIDE 0.9% 500 ML IV STA (15:55)
[2018-03-18] MEDS ORDERED: SODIUM CHLORIDE 0.9% 1,000 ML IV STA (15:55)
[2018-03-18] MEDS ORDERED: cefTRIAXone IN SWFI 1,000 MG/10 ML SYRINGE IVP STA (15:56)
[2018-03-18] MEDS ORDERED: CLINDAMYCIN 150 MG CAP PO STA (16:25)
[2018-03-18 17:27] VITALS: BP 153/86; PULSE 87; TEMP 99.1
== END 2018-03-18 17:27 | disposition home or self-care (01) ==
LOC: EC 13:48
DX: J18.1 Lobar pneumonia, unspecified organism (principal); J44.0 Chronic obstructive pulmonary disease with (acute) lower respiratory infection; I49.3 Ventricular premature depolarization; R51 Headache; G89.18 Other acute postprocedural pain; M54.2 Cervicalgia; I10 Essential (primary) hypertension; I25.10 Atherosclerotic heart disease of native coronary artery without angina pectoris; I25.2 Old myocardial infarction; F17.210 Nicotine dependence, cigarettes, uncomplicated; Z79.51 Long term (current) use of inhaled steroids; Z79.82 Long term (current) use of aspirin; Z79.899 Other long term (current) drug therapy; Z95.1 Presence of aortocoronary bypass graft; Z82.49 Family history of ischemic heart disease and other diseases of the circulatory system
CPT/HCPCS: 99284; 96374; 96361 ×2; 36415; 93005; 80053; 82550; 82553; 83605; 84484; 85025; 85610; 85730; 87040; 87502; 71046; J0696

== ENCOUNTER → 2020-01-22 | Outpatient (CLI) | payer MEDICARE ==
--- NOTE | 2020-01-22 12:00 | CT ---
EXAMINATION TYPE: CT brain wo con DATE OF EXAM: 01/22/2020 HISTORY: Fall injury with headache. CT DLP: 1090.4 mGycm. Automated Exposure Control for Dose Reduction was Utilized. TECHNIQUE: CT scan of the head is performed without contrast. COMPARISON: CT brain November 03, 2017.. FINDINGS: There is no acute intracranial hemorrhage or midline shift identified. There is diffuse v entricular and sulcal prominence consistent with diffuse age-related cerebral atrophy. There is low- attenuation in the periventricular white matter consistent with chronic small vessel ischemic change. 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 The globes are intact and the visualized sinuses are clear. Vascular calcification distal internal carotid and vertebral rafi david bilaterally is redemonstrated. The calvarium is intact. IMPRESSION: No acute intracranial hemorrhage or midline shift. There is mild to moderate diffuse ag e-related cerebral atrophy and moderate to advanced chronic small vessel ischemic change with old lef t parietal-occipital lobe infarct are all redemonstrated. No significant change from prior CT.
--- NOTE | 2020-01-22 12:10 | CT ---
EXAMINATION TYPE: CT chest wo con DATE OF EXAM: 01/22/2020 COMPARISON: Prior chest x-ray March 18, 2018. HISTORY: COPD CT DLP: 256.8 mGycm. Automated Exposure Control for Dose Reduction was Utilized. TECHNIQUE: CT scan of the thorax is performed without IV contrast. FINDINGS: LUNGS: Background moderate to advanced underlying emphysematous change with parenchymal scarring ante rior left upper lung and additional linear scarring anteriorly just above both diaphragms. No pleural effusion or pneumothorax is noted bilaterally. No suspicious nodules or masses. MEDIASTINUM: Post CABG changes with mediastinal clips and sternal wires with incomplete sternal union . Lack of IV contrast is noted to limit evaluation for mediastinal and especially hilar adenopathy. T here are no definitive greater than 1 cm hilar or mediastinal lymph nodes. No cardiomegaly or peric ardial effusion is seen. Enlarged main pulmonary artery measuring 3.2 cm axial image 29, imaging find ings consistent with underlying pulmonary artery hypertension. Adjacent ascending aorta measures up t o 3.9 cm in diameter. OTHER: Moderate multilevel spurring in the mid to lower thoracic spine. Small degree of bilateral sub areolar gynecomastia. IMPRESSION: Moderate to advanced emphysematous change without suspicious acute pulmonary process. Asc ending aortic aneurysm up to 3.9 cm. Evidence of underlying pulmonary artery hypertension.
== END | disposition home or self-care (01) ==
LOC: RADCTMAIN 11:24
PROVIDERS: ATTEND Family Medicine
DX: J43.9 Emphysema, unspecified (principal); I71.2 Thoracic aortic aneurysm, without rupture; I27.21 Secondary pulmonary arterial hypertension; G31.1 Senile degeneration of brain, not elsewhere classified; I67.82 Cerebral ischemia; S09.93XD Unspecified injury of face, subsequent encounter; Z91.81 History of falling
CPT/HCPCS: 70450; 71250

== ENCOUNTER 2021-06-10 20:35 | Inpatient (IN) | payer MEDICARE, OTHER ==
[2021-06-10] MEDS ORDERED: predniSONE 20 MG TAB PO STA (21:15)
[2021-06-10] MEDS ORDERED: IPRATROPIUM-ALBUTEROL 3 ML NEB INHALATION STA (21:15)
--- NOTE | 2021-06-10 21:17 | ED ---
SOB HPI - General Chief Complaint: Shortness of Breath Stated Complaint: COPD Time Seen by Provider: 06/10/21 21:01 Source: patient Mode of arrival: wheelchair Limitations: no limitations - History of Present Illness Initial Comments: This patient is a 70-year-old man with history of COPD who presents with complaint that it feels like his breathing has gotten worse over the past 4 days approximately. He denies any associated chest pain. He states that he is not coughing currently. He had tried to see his residential driver, Dr. Weiner who after seeing him in the clinic told him to come to the emergency department if he is feeling any worse. No fever or chills. No change in urination or bowel movements. No leg pain or swelling. MD Complaint: shortness of breath Onset/Timin -: days(s) Severity scale (1-10): 0 Consistency: constant Improves With: nothing Worsens With: nothing Known History Of: COPD Associated Symptoms: denies other symptoms Treatments Prior to Arrival: bronchodilator - Related Data Home Oxygen Therapy: No Home Medications Medication Instructions Recorded Confirmed Ipratropium-Albuterol Nebulize 3 ml INHALATION RT-Q6H PRN 11/03/17 06/10/21 [Duoneb 0.5 mg-3 mg/3 ml Soln] Aspirin EC [Ecotrin Low Dose] 81 mg PO DAILY 01/20/18 06/10/21 Atorvastatin Calcium [Lipitor] 80 mg PO DAILY 06/10/21 06/10/21 Montelukast Sodium [Singulair] 10 mg PO HS 06/10/21 06/10/21 Previous Rx's Medication Instructions Recorded Albuterol Sulfate [Proair Hfa] 1 - 2 puff INHALATION Q4H PRN #1 02/21/18 inhaler Apixaban [Eliquis Starter Pack 0 mg PO DIRECTED 30 Days #1 pack 06/11/21 (for VTE)] Allergies Allergy/AdvReac Type Severity Reaction Status Date / Time No Known Allergies Allergy Verified 06/10/21 21:26 Review of Systems ROS Statement: Those systems with pertinent positive or pertinent negative responses have been documented in the HPI. ROS Other: All systems not noted in ROS Statement are negative. Constitutional: Denies: fever, chills, weakness Respiratory: Reports: dyspnea, wheezes. Denies: cough, hemoptysis Cardiovascular: Denies: chest pain, palpitations, orthopnea, edema, syncope Gastrointestinal: Denies: abdominal pain, vomiting, diarrhea, melena, hematoc hezia Genitourinary: Denies: dysuria, frequency Musculoskeletal: Denies: back pain Skin: Denies: rash Neurological: Denies: headache, weakness Past Medical History Past Medical History: Coronary Artery Disease (CAD), COPD, Hyperlipidemia, Hypertension, Myocardial Infarction ([place]), Pneumonia Additional Past Medical History / Comment(s): '"tremors", emphysema, back pain - pt stated that he was supposed to be getting a CT scan of his lower back over the next few days. Last Myocardial Infarction Date:: 12/2015 History of Any Multi-Drug Resistant Organisms: None Reported Past Surgical History: Coronary Bypass/CABG, Heart Catheterization, Hernia Repair, Tonsillectomy Additional Past Surgical History / Comment(s): rt inguinal hernia repair, 3 vessel cabg. carotid r side 03/24 Past Anesthesia/Blood Transfusion Reactions: No Reported Reaction Additional Past Anesthesia/Blood Transfusion Reaction / Comment(s): stated never had any blood transfusions Past Psychological History: Anxiety, Depression Smoking Status: Current every day smoker Past Alcohol Use History: None Reported Past Drug Use History: Marijuana - Past Family History Mother Family Medical History: CVA/TIA Father Additional Family Medical History / Comment(s): aaa repair General Exam Limitations: no limitations General appearance: alert, in no apparent distress Head exam: Present: atraumatic, normocephalic Eye exam: Present: normal appearance. Absent: scleral icterus, conjunctival injection Neck exam: Present: normal inspection Respiratory exam: Present: respiratory distress (Mild tachypnea), wheezes, decreased breath sounds. Absent: rales, rhonchi, stridor, accessory muscle use, prolonged expiratory Cardiovascular Exam: Present: regular rate, normal rhythm, normal heart sounds. Absent: systolic murmur, diastolic murmur, rubs, gallop GI/Abdominal exam: Present: soft. Absent: distended, tenderness, guarding, rebound, rigid Extremities exam: Present: normal capillary refill, other (Mild chronic stasis changes.). Absent: pedal edema, calf tenderness Back exam: Present: normal inspection. Absent: CVA tenderness (R), CVA tenderness (L) Neurological exam: Present: alert Skin exam: Present: warm, dry, intact, normal color. Absent: rash Course Vital Signs 06/10/21 06/10/21 06/10/21 20:38 21:00 21:30 Temperature 97.8 F Pulse Rate 95 74 Pulse Rate [ Pulse Oximetery ] Respiratory 26 H 22 22 Rate Blood Pressure 220/126 163/98 Blood Pressure [Left Arm] O2 Sat by Pulse 93 L 95 Oximetry 06/10/21 06/10/21 06/10/21 21:42 21:50 22:30 Temperature Pulse Rate 60 64 56 L Pulse Rate [ Pulse Oximetery ] Respiratory 20 Rate Blood Pressure 97/82 Blood Pressure [Left Arm] O2 Sat by Pulse 94 L Oximetry 06/10/21 06/11/21 06/11/21 23:01 00:25 00:54 Temperature Pulse Rate 70 59 L 54 L Pulse Rate [ Pulse Oximetery ] Respiratory 20 18 24 Rate Blood Pressure 82/54 144/87 Blood Pressure [Left Arm] O2 Sat by Pulse 94 L 96 Oximetry 06/11/21 06/11/21 06/11/21 01:01 02:37 06:30 Temperature Pulse Rate 62 58 L 44 L Pulse Rate [ Pulse Oximetery ] Respiratory 20 18 18 Rate Blood Pressure 100/58 95/47 Blood Pressure [Left Arm] O2 Sat by Pulse 96 Oximetry 06/11/21 06/11/21 06/11/21 06:52 08:53 11:58 Temperature 97.7 F Pulse Rate 85 Pulse Rate [ 61 58 L Pulse Oximetery ] Respiratory 18 16 18 Rate Blood Pressure 140/112 Blood Pressure 124/71 141/107 [Left Arm] O2 Sat by Pulse 97 95 95 Oximetry 06/11/21 06/11/21 06/11/21 13:00 15:00 15:01 Temperature Pulse Rate 86 68 Pulse Rate [ Pulse Oximetery ] Respiratory 20 20 Rate Blood Pressure 104/94 Blood Pressure [Left Arm] O2 Sat by Pulse 89 L 94 L Oximetry 06/11/21 06/11/21 06/11/21 15:09 15:15 18:00 Temperature 97.7 F Pulse Rate 70 48 L 65 Pulse Rate [ Pulse Oximetery ] Respiratory 20 20 18 Rate Blood Pressure 181/99 147/97 Blood Pressure [Left Arm] O2 Sat by Pulse 94 L 92 L Oximetry Medical Decision Making - Lab Data Result diagrams: 06/11/21 04:59 06/14/21 07:41 Lab Results 06/10/21 06/10/21 06/10/21 Range/Units 21:27 21:27 21:27 WBC 19.8 H (3.8-10.6) k/uL RBC 5.87 (4.30-5.90) m/uL Hgb 18.5 H (13.0-17.5) gm/dL Hct 55.2 H (39.0-53.0) % MCV 93.9 (80.0-100.0) fL MCH 31.5 (25.0-35.0) pg MCHC 33.5 (31.0-37.0) g/dL RDW 13.7 (11.5-15.5) % Plt Count 233 (150-450) k/uL MPV 7.5 Neutrophils % 86 % Lymphocytes % 8 % Monocytes % 5 % Eosinophils % 0 % Basophils % 0 % Neutrophils # 17.1 H (1.3-7.7) k/uL Lymphocytes # 1.5 (1.0-4.8) k/uL Monocytes # 0.9 (0-1.0) k/uL Eosinophils # 0.1 (0-0.7) k/uL Basophils # 0.1 (0-0.2) k/uL D-Dimer 7.03 H (<0.60) mg/L FEU Sodium 136 L (137-145) mmol/L Potassium 5.2 H (3.5-5.1) mmol/L Chloride 104 (98-107) mmol/L Carbon Dioxide 24 (22-30) mmol/L Anion Gap 8 mmol/L BUN 38 H (9-20) mg/dL Creatinine 1.18 (0.66-1.25) mg/dL Est GFR (CKD-EPI)AfAm 73 (>60 ml/min/1.73 sqM) Est GFR (CKD-EPI)NonAf 63 (>60 ml/min/1.73 sqM) Glucose 110 H (74-99) mg/dL Plasma Lactic Acid Calvin (0.7-2.0) mmol/L Calcium 9.7 (8.4-10.2) mg/dL Magnesium 2.4 H (1.6-2.3) mg/dL Total Bilirubin 0.8 (0.2-1.3) mg/dL AST 30 (17-59) U/L ALT 16 (4-49) U/L Alkaline Phosphatase 95 (38-126) U/L Troponin I (0.000-0.034) ng/mL NT-Pro-B Natriuret Pep pg/mL Total Protein 6.9 (6.3-8.2) g/dL Albumin 4.0 (3.5-5.0) g/dL 06/10/21 06/10/21 06/10/21 Range/Units 21:27 21:27 21:27 WBC (3.8-10.6) k/uL RBC (4.30-5.90) m/uL Hgb (13.0-17.5) gm/dL Hct (39.0-53.0) % MCV (80.0-100.0) fL MCH (25.0-35.0) pg MCHC (31.0-37.0) g/dL RDW (11.5-15.5) % Plt Count (150-450) k/uL MPV Neutrophils % % Lymphocytes % % Monocytes % % Eosinophils % % Basophils % % Neutrophils # (1.3-7.7) k/uL Lymphocytes # (1.0-4.8) k/uL Monocytes # (0-1.0) k/uL Eosinophils # (0-0.7) k/uL Basophils # (0-0.2) k/uL D-Dimer (<0.60) mg/L FEU Sodium (137-145) mmol/L Potassium (3.5-5.1) mmol/L Chloride (98-107) mmol/L Carbon Dioxide (22-30) mmol/L Anion Gap mmol/L BUN (9-20) mg/dL Creatinine (0.66-1.25) mg/dL Est GFR (CKD-EPI)AfAm (>60 ml/min/1.73 sqM) Est GFR (CKD-EPI)NonAf (>60 ml/min/1.73 sqM) Glucose (74-99) mg/dL Plasma Lactic Acid Calvin 1.3 (0.7-2.0) mmol/L Calcium (8.4-10.2) mg/dL Magnesium (1.6-2.3) mg/dL Total Bilirubin (0.2-1.3) mg/dL AST (17-59) U/L ALT (4-49) U/L Alkaline Phosphatase (38-126) U/L Troponin I 0.034 (0.000-0.034) ng/mL NT-Pro-B Natriuret Pep 6120 pg/mL Total Protein (6.3-8.2) g/dL Albumin (3.5-5.0) g/dL - EKG Data -: EKG Interpreted by Me EKG shows normal: sinus rhythm, axis (Normal), intervals (Normal), QRS complexes (Normal) Rate: normal (Rate 74 bpm) Interpretation: nonspecific ST-T wave changes Disposition Clinical Impression: COPD (chronic obstructive pulmonary disease), Dyspnea, Pneumonia, Pulmonary embolism Disposition: ADMITTED IP TO THIS HOSP Condition: Good Is patient prescribed a controlled substance at d/c from ED?: No
[2021-06-10 21:36] LABS: Basophils # (A) 0.1 k/uL (0-0.2); Basophils % (A) 0 %; Eosinophils # (A) 0.1 k/uL (0-0.7); Eosinophils % (A) 0 %; HGB 18.5 gm/dL (13.0-17.5); Lymphocytes # (A) 1.5 k/uL (1.0-4.8); Lymphocytes % (A) 8 %; MCH 31.5 pg (25.0-35.0); MCHC 33.5 g/dL (31.0-37.0); MCV 93.9 fL (80.0-100.0); Mean Platelet Volume 7.5; Monocytes # (A) 0.9 k/uL (0-1.0); Monocytes % (A) 5 %; Neutrophils # (A) 17.1 k/uL (1.3-7.7); Neutrophils % (A) 86 %; Platelet Count 233 k/uL (150-450); RBC 5.87 m/uL (4.30-5.90); RDW 13.7 % (11.5-15.5); WBC 19.8 k/uL (3.8-10.6)
[2021-06-10 21:45] LABS: HCT 55.2 % (39.0-53.0)
[2021-06-10 21:46] LABS: Calcium 9.7 mg/dL (8.4-10.2); Potassium 5.2 mmol/L (3.5-5.1); Total Protein 6.9 g/dL (6.3-8.2)
[2021-06-10 21:47] LABS: Magnesium 2.4 mg/dL (1.6-2.3); Total Bilirubin 0.8 mg/dL (0.2-1.3)
--- NOTE | 2021-06-10 21:51 | XR ---
EXAMINATION TYPE: XR chest 2V DATE OF EXAM: 06/10/2021 COMPARISON: 03/18/2018 HISTORY: Short of breath TECHNIQUE: FINDINGS: There is no heart failure. There is some interstitial mild infiltrate left lower lobe. Ther e are no hilar masses. There are sternal wires. There are chest leads. Bony thorax is intact. IMPRESSION: Left lower lobe mild pneumonia that is similar to old exam. Inspiration slightly improved compared to old exam. No heart failure seen.
[2021-06-10] MEDS ORDERED: AZITHROMYCIN 500 MG TAB PO STA (22:32)
[2021-06-10] MEDS ORDERED: SODIUM CHLORIDE 0.9% 500 ML 500 ML IV STA (23:10)
--- NOTE | 2021-06-10 23:21 | CT ---
EXAMINATION TYPE: CT chest angio for PE DATE OF EXAM: 06/10/2021 COMPARISON: None HISTORY: R/O PE CT DLP: 323.9 mGycm Automated exposure control for dose reduction was used. CONTRAST: Performed with IV Contrast, patient injected with 80 mL of Isovue 370. Images obtained from the thoracic inlet to the diaphragm with IV contrast Isovue 80 mL. There are 3-D post processed images. FINDINGS: There is some diffuse pulmonary emphysema. Heart size is normal. There is no pericardial effusion. Th ere is some minimal interstitial density at the lung bases. There is no pleural effusion. There is no mediastinal adenopathy. There is coronary artery calcification. 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 There is luminal narrowing of the right pulmonary artery. This appears to relate to a large thrombus on the anterior wall of the right pulmonary artery. I see no filling defect in the smaller branches o f the pulmonary arteries. This measures up to 1.8 cm in thickness. There is no adrenal mass. Upper abdominal soft tissues are intact. IMPRESSION: Elongated filling defect in the anterior wall of the right pulmonary artery. This could be some chron ic thrombus. Tumor not excluded. Pulmonary emphysema. No suspicious pulmonary mass. This exam was discussed with Dr. Nolan at 11:30 PM.
[2021-06-10] MEDS ORDERED: HEPARIN SODIUM 1,000 UN/ML (10ML VL) IV ONE (23:59)
[2021-06-10] MEDS ORDERED: HEPARIN SODIUM 1,000 UN/ML (10ML VL) IV PRN (23:59)
[2021-06-11] MEDS: HEPARIN SOD,PORK IN 0.45% NACL 25,000 UNIT in 0.45% NACL 1 250ML.BAG IV SCH ×2 (00:32→23:02)
[2021-06-11] MEDS ORDERED: NITROGLYCERIN SL TABS 0.4 MG TAB SUBLINGUAL PRN (00:34)
[2021-06-11] MEDS ORDERED: ALBUTEROL NEBULIZED 2.5 MG/3 ML INHALATION STA (00:44)
--- NOTE | 2021-06-11 00:52 | US ---
EXAMINATION TYPE: US venous doppler duplex LE DATE OF EXAM: 06/11/2021 12:28 AM COMPARISON: NONE CLINICAL HISTORY: R/O DVT. R/O DVT. No hx of DVT. On blood thinners per patient. SIDE PERFORMED: Bilateral TECHNIQUE: The lower extremity deep venous system is examined utilizing real time linear array sonog danny with graded compression, doppler sonography and color-flow sonography. VESSELS IMAGED: Common Femoral Vein Deep Femoral Vein Greater Saphenous Vein * Femoral Vein Popliteal Vein Small Saphenous Vein * Proximal Calf Veins (* superficial vessels) Right Leg: Internal echoes seen within the CFV down through the popliteal vein. Prox calf veins not well seen. Trickle flow seen throughout veins imaged. Compressions not performed above the knee due t o internal echoes seen. Left Leg: Trickle flow seen from mid femoral vein down through popliteal vein. Possible chronic int ernal echoes within these vein segments. Veins imaged appear to compress incompletely. IMPRESSION: There is acute and chronic deep vein thrombosis in both legs.
[2021-06-11 01:42] LABS: INR 1.3 (<1.2); Prothrombin Time 13.2 sec (9.0-12.0)
[2021-06-11 01:46] LABS: Partial Thromboplastin Time >200.0 sec (22.0-30.0)
[2021-06-11 05:19] LABS: Basophils % (A) 0 %; Eosinophils % (A) 0 %; HCT 48.9 % (39.0-53.0); HGB 16.1 gm/dL (13.0-17.5); Lymphocytes # (A) 1.1 k/uL (1.0-4.8); Lymphocytes % (A) 8 %; MCH 31.2 pg (25.0-35.0); MCHC 32.9 g/dL (31.0-37.0); MCV 94.8 fL (80.0-100.0); Mean Platelet Volume 7.7; Monocytes # (A) 0.5 k/uL (0-1.0); Monocytes % (A) 4 %; Neutrophils % (A) 88 %; Platelet Count 186 k/uL (150-450); RBC 5.16 m/uL (4.30-5.90); WBC 13.7 k/uL (3.8-10.6)
--- NOTE | 2021-06-11 10:59 | P.GSCN ---
History of Present Illness Consult date: 06/11/21 History of present illness: Ben is a 70-year-old male with a history of COPD he states he has had some increasing work of breathing over the past few days. He states this feels essentially normal to his previous exacerbations of COPD. He denies any chest pains. He denies any leg pain or swelling that he is aware of. He states that since he has been here with breathing treatments he feels slightly better CTA showed an elongated filling defect in the right pulmonary artery questioning chronic thrombus versus possible tumor. He also underwent venous duplex are acute and chronic DVT of the bilateral lower extremities Review of Systems 14 point review of systems performed. Pertinent positives and negatives per the HPI Past Medical History Past Medical History: Coronary Artery Disease (CAD), COPD, Hyperlipidemia, Hypertension, Myocardial Infarction ([place]), Pneumonia Additional Past Medical History / Comment(s): '"tremors", emphysema, back pain - pt stated that he was supposed to be getting a CT scan of his lower back over the next few days. Last Myocardial Infarction Date:: 12/2015 History of Any Multi-Drug Resistant Organisms: None Reported Past Surgical History: Coronary Bypass/CABG, Heart Catheterization, Hernia Repair, Tonsillectomy Additional Past Surgical History / Comment(s): rt inguinal hernia repair, 3 vessel cabg in 2015, carotid r side 03/24 2020 Past Anesthesia/Blood Transfusion Reactions: No Reported Reaction Additional Past Anesthesia/Blood Transfusion Reaction / Comm: stated never had any blood transfusions Smoking Status: Current every day smoker - Past Family History Mother Family Medical History: CVA/TIA Father Additional Family Medical History / Comment(s): aaa repair Medications and Allergies Home Medications Medication Instructions Recorded Confirmed Type Ipratropium-Albuterol Nebulize 3 ml INHALATION RT-Q6H PRN 11/03/17 06/10/21 History [Duoneb 0.5 mg-3 mg/3 ml Soln] Aspirin EC [Ecotrin Low Dose] 81 mg PO DAILY 01/20/18 06/10/21 History Albuterol Sulfate [Proair Hfa] 1 - 2 puff INHALATION Q4H PRN #1 02/21/18 06/10/21 Rx inhaler Atorvastatin Calcium [Lipitor] 80 mg PO DAILY 06/10/21 06/10/21 History Montelukast Sodium [Singulair] 10 mg PO HS 06/10/21 06/10/21 History Apixaban [Eliquis Starter Pack 0 mg PO DIRECTED 30 Days #1 pack 06/11/21 Rx (for VTE)] Allergies Allergy/AdvReac Type Severity Reaction Status Date / Time No Known Allergies Allergy Verified 06/10/21 21:26 Surgical - Exam Vital Signs Temp Pulse Resp BP Pulse Ox 97.8 F 95 26 H 220/126 93 L 06/10/21 20:38 06/10/21 20:38 06/10/21 20:38 06/10/21 20:38 06/10/21 20:38 Gen. is a pleasant cooperative male in no acute distress. Slightly disheveled. HEENT is normocephalic, atraumatic, extraction motion intact. Heart appears regular at this time. Lungs with diminished breath sounds, expiratory wheezes. Abdomen is soft, nontender nondistended. Extremity show no clubbing cyanosis or edema. Normal mood and affect. Cranial nerves II through XII grossly intact Results CT CT angiogram and ultrasounds are reviewed - Labs 06/11/21 04:59 06/10/21 21:27 Abnormal Lab Results - Last 24 Hours (Table) 06/10/21 06/10/21 06/10/21 Range/Units 21:27 21:27 21:27 WBC 19.8 H (3.8-10.6) k/uL Hgb 18.5 H (13.0-17.5) gm/dL Hct 55.2 H (39.0-53.0) % Neutrophils # 17.1 H (1.3-7.7) k/uL PT (9.0-12.0) sec INR (<1.2) APTT (22.0-30.0) sec D-Dimer 7.03 H (<0.60) mg/L FEU Sodium 136 L (137-145) mmol/L Potassium 5.2 H (3.5-5.1) mmol/L BUN 38 H (9-20) mg/dL Glucose 110 H (74-99) mg/dL Magnesium 2.4 H (1.6-2.3) mg/dL 06/11/21 06/11/21 06/11/21 Range/Units 01:11 04:59 07:51 WBC 13.7 H (3.8-10.6) k/uL Hgb (13.0-17.5) gm/dL Hct (39.0-53.0) % Neutrophils # 12.0 H (1.3-7.7) k/uL PT 13.2 H (9.0-12.0) sec INR 1.3 H (<1.2) APTT >200.0 H* 71.3 H (22.0-30.0) sec D-Dimer (<0.60) mg/L FEU Sodium (137-145) mmol/L Potassium (3.5-5.1) mmol/L BUN (9-20) mg/dL Glucose (74-99) mg/dL Magnesium (1.6-2.3) mg/dL Diabetes panel 06/10/21 Range/Units 21:27 Sodium 136 L (137-145) mmol/L Potassium 5.2 H (3.5-5.1) mmol/L Chloride 104 (98-107) mmol/L Carbon Dioxide 24 (22-30) mmol/L BUN 38 H (9-20) mg/dL Creatinine 1.18 (0.66-1.25) mg/dL Glucose 110 H (74-99) mg/dL Calcium 9.7 (8.4-10.2) mg/dL AST 30 (17-59) U/L ALT 16 (4-49) U/L Alkaline Phosphatase 95 (38-126) U/L Total Protein 6.9 (6.3-8.2) g/dL Albumin 4.0 (3.5-5.0) g/dL Calcium panel 06/10/21 Range/Units 21:27 Calcium 9.7 (8.4-10.2) mg/dL Albumin 4.0 (3.5-5.0) g/dL Pituitary panel 06/10/21 Range/Units 21:27 Sodium 136 L (137-145) mmol/L Potassium 5.2 H (3.5-5.1) mmol/L Chloride 104 (98-107) mmol/L Carbon Dioxide 24 (22-30) mmol/L BUN 38 H (9-20) mg/dL Creatinine 1.18 (0.66-1.25) mg/dL Glucose 110 H (74-99) mg/dL Calcium 9.7 (8.4-10.2) mg/dL Adrenal panel 06/10/21 Range/Units 21:27 Sodium 136 L (137-145) mmol/L Potassium 5.2 H (3.5-5.1) mmol/L Chloride 104 (98-107) mmol/L Carbon Dioxide 24 (22-30) mmol/L BUN 38 H (9-20) mg/dL Creatinine 1.18 (0.66-1.25) mg/dL Glucose 110 H (74-99) mg/dL Calcium 9.7 (8.4-10.2) mg/dL Total Bilirubin 0.8 (0.2-1.3) mg/dL AST 30 (17-59) U/L ALT 16 (4-49) U/L Alkaline Phosphatase 95 (38-126) U/L Total Protein 6.9 (6.3-8.2) g/dL Albumin 4.0 (3.5-5.0) g/dL Assessment and Plan Assessment: Acute and chronic bilateral lower extremity DVT Right pulmonary artery filling defect, chronic PE versus tumor Elevated d-dimer COPD tobacco abuse Plan: At this point given the acute and chronic nature of the lower extremity DVTs regardless the patient will require anticoagulation. Would recommend further evaluation from a pulmonary standpoint regarding this possible area of tumor versus chronic thrombus. No further vascular interventions planned. No ev idence of right heart strain on initial imaging or laboratories
[2021-06-11] MEDS: predniSONE 20 MG TAB PO SCH (11:54)
--- NOTE | 2021-06-11 14:44 | P.HPIM ---
History of Present Illness Patient is a pleasant 70-year-old male came in with the complaints of shortness of breath, found to be in COPD exacerbation patient will also complaining of bilateral lower extremity swelling. The lower extremity Doppler showed bila teral acute on chronic DVTs. Patient also had possible pulmonary embolism. Patient is mostly sedentary. Patient can use to smoke about one pack of cigarettes per day used to smoke about 3 packs a day. Patient initially wanted to go home and is insisting on going home but family is requesting social work consult and physical therapy occupational therapy evaluation as patient doesn't take care of himself and the hasn't been much functional lately. Patient is still wheezing on exam saturated well on 2 L but desaturates upon ambulation to 89% without oxygen. Patient is on oral prednisone and inhalational treatments at this time. REVIEW OF SYSTEMS: CONSTITUTIONAL: No fever, no malaise, no fatigue. HEENT: No recent visual problems or hearing problems. Denied any sore throat. CARDIOVASCULAR: No chest pain, orthopnea, PND, no palpitations, no syncope. PULMONARY: As mentioned in HPI GASTROINTESTINAL: No diarrhea, no nausea, no vomiting, no abdominal pain. NEUROLOGICAL: No headaches, no weakness, no numbness. HEMATOLOGICAL: Denies any bleeding or petechiae. GENITOURINARY: Denies any burning micturition, frequency, or urgency. MUSCULOSKELETAL/RHEUMATOLOGICAL: Denies any joint pain, swelling, or any muscle pain. ENDOCRINE: Denies any polyuria or polydipsia. The rest of the 14-point review of systems is negative. PHYSICAL EXAMINATION: GENERAL: The patient is alert and oriented x3, not in any acute distress. Well developed, well nourished. HEENT: Pupils are round and equally reacting to light. EOMI. No scleral icterus. No conjunctival pallor. Normocephalic, atraumatic. No pharyngeal erythema. No thyromegaly. CARDIOVASCULAR: S1 and S2 present. No murmurs, rubs, or gallops. PULMONARY: Moderate expiratory wheezing without any crackles failure good air entry into bilateral lung lewis ABDOMEN: Soft, nontender, nondistended, normoactive bowel sounds. No palpable organomegaly. MUSCULOSKELETAL: No joint swelling or deformity. EXTREMITIES: No cyanosis, clubbing, mild bilateral pedal edema is present NEUROLOGICAL: Gross neurological examination did not reveal any focal deficits. SKIN: No rashes. Assessment and plan -Acute hypoxic and hypercapnic respiratory failure secondary to COPD exacerbation as well as possible pulmonary embolism. Patient is presently on IV heparin will verify insurance coverage for Eliquis if it's covered patient will be started on Eliquis and this can you IV heparin. Patient's bilateral lower extremity DVT is secondary to his sedentary lifestyle -COPD with acute exacerbation nicotine cessation counseling was provided patient was started on prednisone patient will be continued on inhalational treatments. -Coronary artery disease with history of CABG in the past -hyperlipidemia - hypertension - DVT prophylaxis: Patient is on anticoagulation with IV heparin Past Medical History Past Medical History: Coronary Artery Disease (CAD), COPD, Hyperlipidemia, Hypertension, Myocardial Infarction ([place]), Pneumonia Additional Past Medical History / Comment(s): '"tremors", emphysema, back pain - pt stated that he was supposed to be getting a CT scan of his lower back over the next few days. Last Myocardial Infarction Date:: 12/2015 History of Any Multi-Drug Resistant Organisms: None Reported Past Surgical History: Coronary Bypass/CABG, Heart Catheterization, Hernia Repair, Tonsillectomy Additional Past Surgical History / Comment(s): rt inguinal hernia repair, 3 vessel cabg in 2015, carotid r side 03/24 2020 Past Anesthesia/Blood Transfusion Reactions: No Reported Reaction Additional Past Anesthesia/Blood Transfusion Reaction / Comment(s): stated never had any blood transfusions Smoking Status: Current every day smoker - Past Family History Mother Family Medical History: CVA/TIA Father Additional Family Medical History / Comment(s): aaa repair Medications and Allergies Home Medications Medication Instructions Recorded Confirmed Type Ipratropium-Albuterol Nebulize 3 ml INHALATION RT-Q6H PRN 11/03/17 06/10/21 History [Duoneb 0.5 mg-3 mg/3 ml Soln] Aspirin EC [Ecotrin Low Dose] 81 mg PO DAILY 01/20/18 06/10/21 History Albuterol Sulfate [Proair Hfa] 1 - 2 puff INHALATION Q4H PRN #1 02/21/18 06/10/21 Rx inhaler Atorvastatin Calcium [Lipitor] 80 mg PO DAILY 06/10/21 06/10/21 History Montelukast Sodium [Singulair] 10 mg PO HS 06/10/21 06/10/21 History Apixaban [Eliquis Starter Pack 0 mg PO DIRECTED 30 Days #1 pack 06/11/21 Rx (for VTE)] Allergies Allergy/AdvReac Type Severity Reaction Status Date / Time No Known Allergies Allergy Verified 06/10/21 21:26 Physical Exam Vitals: Vital Signs Temp Pulse Pulse Resp BP BP Pulse Ox 06/11/21 13:00 86 20 104/94 89 L 06/11/21 11:58 58 L 18 141/107 95 06/11/21 08:53 97.7 F 61 16 124/71 95 06/11/21 06:52 85 18 140/112 97 06/11/21 06:30 44 L 18 95/47 96 06/11/21 02:37 58 L 18 100/58 06/11/21 01:01 62 20 06/11/21 00:54 54 L 24 06/11/21 00:25 59 L 18 144/87 96 06/10/21 23:01 70 20 82/54 94 L 06/10/21 22:30 56 L 20 97/82 94 L 06/10/21 21:50 64 06/10/21 21:42 60 06/10/21 21:30 74 22 163/98 95 06/10/21 21:00 22 06/10/21 20:38 97.8 F 95 26 H 220/126 93 L Intake and Output 06/10/21 06/11/21 06/11/21 22:59 06:59 14:59 Intake Total 18.044 68.053 Output Total 450 Balance 18.044 -381.947 Intake: Intake, IV Titration 18.044 68.053 Amount Heparin Sod,Pork in 0.45% 18.044 68.053 NaCl 25,000 unit In 0.45 % NaCl 1 250ml.bag @ 18 UNITS/KG/HR 13.88 mls/hr IV .Q18H1M [facility] Rx#: [id number] Output: Urine 450 Other: Weight 77.111 kg 77.111 kg Results CBC & Chem 7: 06/11/21 04:59 06/10/21 21:27 Labs: Abnormal Lab Results - Last 24 Hours (Table) 06/10/21 06/10/21 06/10/21 Range/Units 21:27 21:27 21:27 WBC 19.8 H (3.8-10.6) k/uL Hgb 18.5 H (13.0-17.5) gm/dL Hct 55.2 H (39.0-53.0) % Neutrophils # 17.1 H (1.3-7.7) k/uL PT (9.0-12.0) sec INR (<1.2) APTT (22.0-30.0) sec D-Dimer 7.03 H (<0.60) mg/L FEU Sodium 136 L (137-145) mmol/L Potassium 5.2 H (3.5-5.1) mmol/L BUN 38 H (9-20) mg/dL Glucose 110 H (74-99) mg/dL Magnesium 2.4 H (1.6-2.3) mg/dL 06/11/21 06/11/21 06/11/21 Range/Units 01:11 04:59 07:51 WBC 13.7 H (3.8-10.6) k/uL Hgb (13.0-17.5) gm/dL Hct (39.0-53.0) % Neutrophils # 12.0 H (1.3-7.7) k/uL PT 13.2 H (9.0-12.0) sec INR 1.3 H (<1.2) APTT >200.0 H* 71.3 H (22.0-30.0) sec D-Dimer (<0.60) mg/L FEU Sodium (137-145) mmol/L Potassium (3.5-5.1) mmol/L BUN (9-20) mg/dL Glucose (74-99) mg/dL Magnesium (1.6-2.3) mg/dL Thrombosis Risk Factor Assmnt - Choose All That Apply Any of the Below Risk Factors Present?: Yes Each Factor Represents 1 point: Abnormal pulmonary function (COPD) Other Risk Factors: Yes Each Risk Factor Represents 2 Points: Age 61-74 years Each Risk Factor Represents 3 Points: History of DVT/PE Other congenital or acquired thrombophilia - If yes, enter type in comment: No Thrombosis Risk Factor Assessment Total Risk Factor Score: 6 Thrombosis Risk Factor Assessment Level: High Risk
[2021-06-11] MEDS: IPRATROPIUM-ALBUTEROL 3 ML NEB INHALATION SCH ×2 (14:59→20:29)
--- NOTE | 2021-06-11 18:13 | ECHOF ---
Referral Reason:possible PE MEASUREMENTS -------- HEIGHT: 182.9 cm WEIGHT: 77.1 kg BP: 140/112 RVIDd: 3.3 cm (< 3.3) IVSd: 1.3 cm (0.6 - 1.1) LVIDd: 5.4 cm (3.9 - 5.3) LVPWd: 1.3 cm (0.6 - 1.1) IVSs: 1.4 cm LVIDs: 4.8 cm LVPWs: 1.5 cm LA Diam: 4.1 cm (2.7 - 3.8) LAESV Index (A-L): 30.69 ml/m Ao Diam: 3.9 cm (2.0 - 3.7) AV Cusp: 2.0 cm (1.5 - 2.6) MV EXCURSION: 23.601 mm (> 18.000) MV EF SLOPE: 38 mm/s (70 - 150) EPSS: 1.4 cm RAP: 5.00 mmHg RVSP: 38.21 mmHg FINDINGS -------- Sinus rhythm. This was a technically adequate study. The left ventricular size is normal. There is mild concentric left ventricular hypertrophy. Overa ll left ventricular systolic function is severely impaired with, an EF between 25 - 30 %. The right ventricle is mildly enlarged. LA is midly dilated 29-33ml/m2. The right atrial size is normal. Interatrial and interventricular septum intact. There is mild aortic valve sclerosis. The mitral valve leaflets are mildly thickened. Mild mitral regurgitation is present. Mild tricuspid regurgitation present. There is mild pulmonary hypertension. The right ventricular systolic pressure, as measured by Doppler, is 38.21mmHg. Trace/mild (physiologic) pulmonic regurgitation. The aortic root is dilated measuring 3.9cm. Normal inferior vena cava with normal inspiratory collapse consistent with estimated right atrial pre ssure of 5 mmHg. There is no pericardial effusion. CONCLUSIONS -------- 1. There is mild concentric left ventricular hypertrophy. 2. Overall left ventricular systolic function is severely impaired with, an EF between 25 - 30 %. 3. The right ventricle is mildly enlarged. 4. LA is midly dilated 29-33ml/m2. 5. There is mild aortic valve sclerosis. 6. The mitral valve leaflets are mildly thickened. 7. Mild mitral regurgitation is present. 8. Mild tricuspid regurgitation present. 9. There is mild pulmonary hypertension. 10. Trace/mild (physiologic) pulmonic regurgitation. 11. The aortic root is dilated measuring 3.9cm. 12. Normal inferior vena cava with normal inspiratory collapse consistent with estimated right atrial pressure of 5 mmHg. 13. There is no pericardial effusion. CYCLE TOURING GUIDE: Germania Mendoza RDCS
[2021-06-11] MEDS: MONTELUKAST 10 MG TAB PO SCH (20:17)
[2021-06-11] MEDS: IPRATROPIUM-ALBUTEROL 3 ML NEB INHALATION PRN (22:42)
[2021-06-11] MEDS: ALPRAZolam 0.25 MG TAB PO PRN (22:58)
[2021-06-12] MEDS: IPRATROPIUM-ALBUTEROL 3 ML NEB INHALATION PRN (03:25)
[2021-06-12] MEDS: IPRATROPIUM-ALBUTEROL 3 ML NEB INHALATION SCH ×4 (07:30→19:38)
[2021-06-12] MEDS ORDERED: NON FORMULARY DRUG (Aspirin Ec 81 MG Tablet.Dr) PO SCH (09:00)
[2021-06-12] MEDS: ATORVASTATIN 80 MG TAB PO SCH (09:07)
[2021-06-12] MEDS: predniSONE 20 MG TAB PO SCH (09:07)
[2021-06-12] MEDS: ASPIRIN 325 MG TAB PO SCH (09:07)
[2021-06-12] MEDS: NICOTINE 14MG/24HR PATCH TRANSDERM SCH (12:29)
[2021-06-12] MEDS: FUROSEMIDE 10 MG/ML 4 ML VIAL IV SCH ×2 (12:29→20:47)
--- NOTE | 2021-06-12 12:34 | P.CNPUL ---
History of Present Illness Consult date: 06/12/21 Reason for consult: dyspnea Chief complaint: Shortness of breath History of present illness: Patient is a 70-year-old male presented emergency department with increasing reading difficulty for 3-4 day duration, denies any chest pain intermittent cough nonproductive, patient has a baseline extensive history of COPD, chest x- ray significant for left lower lobe pneumonia, computed tomography scan of the chest positive for a filling defect in the right pulmonary vasculature appeared to be thrombus, ultrasound of the lower extremity positive for chronic and acute DVT, currently patient is being treated with bronchodilator gentle diuresis heparin drip as per protocol and continuation of his medications, and prednison e, white cell count arrival were noted to be 19,000. Down to 13,000 now Review of Systems All systems: negative Past Medical History Past Medical History: Coronary Artery Disease (CAD), COPD, Hyperlipidemia, Hypertension, Myocardial Infarction ([place]), Pneumonia Additional Past Medical History / Comment(s): '"tremors", emphysema, back pain - pt stated that he was supposed to be getting a CT scan of his lower back over the next few days. Last Myocardial Infarction Date:: 12/2015 History of Any Multi-Drug Resistant Organisms: None Reported Past Surgical History: Coronary Bypass/CABG, Heart Catheterization, Hernia Rep air, Tonsillectomy Additional Past Surgical History / Comment(s): rt inguinal hernia repair, 3 vessel cabg in 2015, carotid r side 03/24 2020 Past Anesthesia/Blood Transfusion Reactions: No Reported Reaction Additional Past Anesthesia/Blood Transfusion Reaction / Comment(s): stated never had any blood transfusions Smoking Status: Current every day smoker - Past Family History Mother Family Medical History: CVA/TIA Father Additional Family Medical History / Comment(s): aaa repair Medications and Allergies Home Medications Medication Instructions Recorded Confirmed Type Ipratropium-Albuterol Nebulize 3 ml INHALATION RT-Q6H PRN 11/03/17 06/10/21 History [Duoneb 0.5 mg-3 mg/3 ml Soln] Aspirin EC [Ecotrin Low Dose] 81 mg PO DAILY 01/20/18 06/10/21 History Albuterol Sulfate [Proair Hfa] 1 - 2 puff INHALATION Q4H PRN #1 02/21/18 06/10/21 Rx inhaler Atorvastatin Calcium [Lipitor] 80 mg PO DAILY 06/10/21 06/10/21 History Montelukast Sodium [Singulair] 10 mg PO HS 06/10/21 06/10/21 History Apixaban [Eliquis Starter Pack 0 mg PO DIRECTED 30 Days #1 pack 06/11/21 Rx (for VTE)] Allergies Allergy/AdvReac Type Severity Reaction Status Date / Time No Known Allergies Allergy Verified 06/10/21 21:26 Physical Exam Vitals: Vital Signs Temp Pulse Pulse Resp BP BP Pulse Ox 06/12/21 11:52 60 18 140/80 97 06/12/21 11:39 64 06/12/21 11:25 60 06/12/21 08:30 97.6 F 67 20 127/81 96 06/12/21 07:45 64 06/12/21 07:31 64 06/12/21 04:00 68 16 122/76 96 06/12/21 03:37 55 L 06/12/21 03:25 53 L 06/12/21 01:15 60 18 06/12/21 00:00 97.6 F 60 18 149/72 100 06/11/21 22:53 57 L 06/11/21 22:43 56 L 06/11/21 20:46 70 06/11/21 20:32 72 06/11/21 20:00 97.6 F 76 18 151/76 93 L 06/11/21 18:00 97.7 F 65 18 147/97 92 L 06/11/21 15:15 48 L 20 181/99 94 L 06/11/21 15:09 70 20 06/11/21 15:01 94 L 06/11/21 15:00 68 20 06/11/21 13:00 86 20 104/94 89 L Intake and Output 06/11/21 06/12/21 06/12/21 22:59 06:59 14:59 Intake Total 139.501 400 Output Total 400 Balance -260.499 400 Intake: Intake, IV Titration 139.501 Amount Heparin Sod,Pork in 0.45% 139.501 NaCl 25,000 unit In 0.45 % NaCl 1 250ml.bag @ 18 UNITS/KG/HR 13.88 mls/hr IV .Q18H1M [facility] Rx#: [id number] Oral 400 Output: Urine 400 Other: Voiding Method Urinal Weight 72 kg - Constitutional General appearance: average body habitus, cooperative, disheveled - EENT Eyes: EOMI, PERRLA Ears: bilateral: normal - Neck Neck: normal ROM Carotids: bilateral: upstroke normal Thyroid: bilateral: normal size - Respiratory Respiratory: bilateral: diminished - Cardiovascular Rhythm: regular Heart sounds: normal: S1, S2 - Gastrointestinal General gastrointestinal: soft - Integumentary Integumentary: normal turgor - Neurologic Neurologic: CNII-XII intact - Musculoskeletal Musculoskeletal: gait normal, generalized weakness, strength equal bilaterally - Psychiatric Psychiatric: A&O x's 3, appropriate affect, intact judgment & insight Results - Laboratory Findings CBC and BMP: 06/11/21 04:59 06/10/21 21:27 PT/INR, D-dimer PT 13.2 sec (9.0-12.0) H 06/11/21 01:11 INR 1.3 (<1.2) H 06/11/21 01:11 D-Dimer 7.03 mg/L FEU (<0.60) H 06/10/21 21:27 Abnormal lab findings: Abnormal Labs 06/10/21 06/10/21 06/10/21 21:27 21:27 21:27 WBC 19.8 H Hgb 18.5 H Hct 55.2 H Neutrophils # 17.1 H PT INR APTT D-Dimer 7.03 H Sodium 136 L Potassium 5.2 H BUN 38 H Glucose 110 H Magnesium 2.4 H 06/11/21 06/11/21 06/11/21 01:11 04:59 07:51 WBC 13.7 H Hgb Hct Neutrophils # 12.0 H PT 13.2 H INR 1.3 H APTT >200.0 H* 71.3 H D-Dimer Sodium Potassium BUN Glucose Magnesium 06/11/21 14:45 WBC Hgb Hct Neutrophils # PT INR APTT 48.7 H D-Dimer Sodium Potassium BUN Glucose Magnesium - Diagnostic Findings Chest x-ray: report reviewed, image reviewed CT scan - chest: report reviewed, image reviewed (Finding as noted above) Assessment and Plan Assessment: Left lower lobe pneumonia Acute on chronic pulmonary embolism with Acute on chronic DVT End-stage lung disease secondary due to 2 severe COPD emphysema Plan: Continue IV heparin however in next 24-48 hours can be switched to oral direct anticoagulant IV antibiotics would recommend Rocephin Continuation of home medications Time with Patient: Greater than 30
--- NOTE | 2021-06-12 14:18 | P.PN ---
Subjective Progress Note Date: 06/12/21 Patient is a pleasant 70-year-old male came in with the complaints of shortness of breath, found to be in COPD exacerbation patient will also complaining of bilateral lower extremity swelling. The lower extremity Doppler showed bilateral acute on chronic DVTs. Patient also had possible pulmonary embolism. Patient is mostly sedentary. Patient can use to smoke about one pack of cigarettes per day used to smoke about 3 packs a day. Patient initially wanted to go home and is insisting on going home but family is requesting social work consult and physical therapy occupational therapy evaluation as patient doesn't take care of himself and the hasn't been much functional lately. Patient is still wheezing on exam saturated well on 2 L but desaturates upon ambulation to 89% without oxygen. Patient is on oral prednisone and inhalational treatments at this time. 06/12/2021 Patient is evaluated today at the bedside, he still has a complaint of shortness of breath and nonproductive cough. However he denies chest pain. Patient reports to smoking one pack of cigarettes a day, patient has requested a nicotine patch to which one has been ordered. Patient is wheezy, receiving breathing treatments. Echocardiogram which revealed an ejection fraction of 25- 30%, mild pulmonary hypertension, mild mitral regurgitation, mild tricuspid regurgitation, mild concentric left ventricular hypertrophy. This x-ray revealed left lower lobe mild pneumonia similar compared to old, no heart failure seen. Patient's BNP on admission was 6120. Patient has been started on IV Lasix 40 mg IV twice a day, and cardiology consultation is in place for new onset congestive heart failure. Previous echo for comparison was a MICHELLE that was completed in December 2016, that revealed a normal size wall motion and systolic function of the left ventricle. Patient was seen in consult by pulmonary services who recommended continuing heparin drip for the next 24-48 hours at that time patient may be transitioned to an oral anticoagulation. Pulmonary services has started patient on IV Rocephin for pneumonia. Patient is on oral steroid daily. Patient was seen in consultation by surgical services in follow- up for the chest CTA. CT revealed an elongated filling defect in the right pulmonary artery questioning and chronic thrombus versus possible tumor. Surgical services is recommending any intervention at this time, and would like a follow-up from pulmonary services regarding the location of this tumor versus chronic thrombus. There is no evidence of right heart strain on imaging or lab values. Lower extremity venous Doppler revealed acute on chronic DVT in bilateral legs to which patient has maintained on an IV heparin infusion. Patient is encouraged to use incentive spirometer. Vital signs are stable, and patient is maintaining oxygen saturation 97% on room air. Leukocytosis is improving patient will remain on IV antibiotics. Cardiac enzymes are negative 3. ROS: Constitutional: Denied any fatigue denied any fever. Cardio vascular: denied any chest pain, palpitations, reports mild LE edema Gastrointestinal denied any nausea vomiting Pulmonary: Reports SOB with activity, Reports nonproductive cough Neurologic denied any new focal deficits All inpatient medications were reviewed and appropriate changes in these medications as dictated in the interval history and assessment and plan. PHYSICAL EXAMINATION: GENERAL: The patient is alert and oriented x3, not in any acute distress. Well developed, well nourished. HEENT: Pupils are round and equally reacting to light. EOMI. No scleral icterus. No conjunctival pallor. Normocephalic, atraumatic. No pharyngeal erythema. No thyromegaly. CARDIOVASCULAR: S1 and S2 present. No murmurs, rubs, or gallops. PULMONARY: Bilateral posterior upper and lower lobes are rhonchorous, coarse wheezing ABDOMEN: Soft, nontender, nondistended, normoactive bowel sounds. No palpable organomegaly. MUSCULOSKELETAL: No joint swelling or deformity. EXTREMITIES: No cyanosis, clubbing, mild +1 ankle edema NEUROLOGICAL: Gross neurological examination did not reveal any focal deficits. SKIN: No rashes. Assessment and plan -Acute hypoxic and hypercapnic respiratory failure secondary to COPD exacerbation as well as possible pulmonary embolism. Patient is presently on IV heparin will verify insurance coverage for Eliquis if it's covered patient will be started on Eliquis tomorrow. Patient has been on eliqius in the past. -Patient's bilateral lower extremity DVT is secondary to his sedentary lifestyle, patient is on IV heparin -COPD with acute exacerbation nicotine cessation counseling was provided patient was started on prednisone patient will be continued on inhalational treatments. -Coronary artery disease with history of CABG in the past -hyperlipidemia continue on Lipitor - hypertension - currently not on any antihypertensive medication, continue to monitor -New onset acute congestive heart failure, systolic - current ejection fraction 25-30%. Patient has been started on IV Lasix, and a consult for cardiology services. Repeat BMP in the morning. -Pulmonary embolism versus tumor, patient has been started on IV heparin, evaluated by surgical services who is awaiting input from pulmonary services regarding recommendations. Leukocytosis, related to pneumonia, improving down to 13.7. Patient has been started on IV antibiotics. Lactic acid normal at 1.3 on admission. Blood cultures negative 2. Possible Left lower lobe pneumonia, present on admission, pulmonary service is following. Patient started on IV Rocephin. Repeat CBC in the morning. Repeat chest x-ray in the morning. -Nicotine dependence, patient has been started on a nicotine patch. DVT prophylaxis: Patient is on anticoagulation with IV heparin Patient will be started on all Eliquis tomorrow for DVT PE protocol. Patient will be evaluated by cardiology services, patient is concerned IV Lasix. Patient will have a repeat CBC and BNP in the morning. Patient is being followed closely pulmonary services, patient was started on IV antibiotics for a possible pneumonia. Continue on oral steroids, continue on breathing treatments. Continue with nicotine patch. Objective - Vital Signs Vital signs: Vital Signs Temp 97.6 F 06/12/21 08:30 Pulse 60 06/12/21 11:52 Resp 18 06/12/21 11:52 BP 140/80 06/12/21 11:52 Pulse Ox 97 06/12/21 11:52 Intake & Output 06/11/21 06/12/21 06/12/21 18:59 06:59 18:59 Intake Total 68.053 139.501 400 Output Total 450 400 Balance -381.947 -260.499 400 Weight 77.111 kg 72 kg Intake: Intake, IV Titration 68.053 139.501 Amount Heparin Sod,Pork in 0.45% 68.053 139.501 NaCl 25,000 unit In 0.45 % NaCl 1 250ml.bag @ 18 UNITS/KG/HR 13.88 mls/hr IV .Q18H1M [facility] Rx#: [id number] Oral 400 Output: Urine 450 400 Other: Voiding Method Urinal - Labs CBC & Chem 7: 06/11/21 04:59 06/10/21 21:27 Labs: Abnormal Lab Results - Last 24 Hours (Table) 06/11/21 Range/Units 14:45 APTT 48.7 H (22.0-30.0) sec Microbiology - Last 24 Hours (Table) 06/10/21 23:01 Blood Culture - Preliminary Blood No Growth after 24 hours 06/10/21 23:20 Blood Culture - Preliminary Blood No Growth after 24 hours Assessment and Plan Time with Patient: Greater than 30
[2021-06-12] MEDS: ALPRAZolam 0.25 MG TAB PO PRN (15:23)
[2021-06-12] MEDS: APIXABAN 5 MG TAB PO SCH (18:00)
[2021-06-12] MEDS: HEPARIN SOD,PORK IN 0.45% NACL 25,000 UNIT in 0.45% NACL 1 250ML.BAG IV SCH (20:43)
[2021-06-12] MEDS: MONTELUKAST 10 MG TAB PO SCH (20:48)
[2021-06-13] MEDS: ALPRAZolam 0.25 MG TAB PO PRN ×2 (00:21→17:04)
[2021-06-13] MEDS: IPRATROPIUM-ALBUTEROL 3 ML NEB INHALATION PRN ×2 (00:33→04:08)
[2021-06-13] MEDS ORDERED: DILTIAZEM DRIP BOLUS FROM BAG 1 MG SOLN IV ONE (07:15)
[2021-06-13] MEDS ORDERED: DILTIAZEM 125 MG in SODIUM CHLORIDE 0.9% 100 ML IV SCH (07:15)
[2021-06-13] MEDS: IPRATROPIUM-ALBUTEROL 3 ML NEB INHALATION SCH ×4 (08:17→19:41)
[2021-06-13] MEDS: APIXABAN 5 MG TAB PO SCH ×2 (10:02→20:38)
[2021-06-13] MEDS: predniSONE 20 MG TAB PO SCH (10:02)
[2021-06-13] MEDS: ASPIRIN 325 MG TAB PO SCH (10:02)
[2021-06-13] MEDS: ATORVASTATIN 80 MG TAB PO SCH (10:02)
[2021-06-13] MEDS: NICOTINE 14MG/24HR PATCH TRANSDERM SCH (10:02)
[2021-06-13] MEDS: FUROSEMIDE 10 MG/ML 4 ML VIAL IV SCH (10:02)
[2021-06-13 10:10] LABS: Calcium 8.8 mg/dL (8.4-10.2); Potassium 4.1 mmol/L (3.5-5.1)
--- NOTE | 2021-06-13 12:45 | P.CRDCN ---
History of Present Illness Consult date: 06/13/21 History of present illness: HISTORY OF PRESENT ILLNESS: This is a 70-year-old male with a past medical history significant for COPD, coronary artery disease with previous CABG, hypertension, and hyperlipidemia. Patient used to follow in the office with Dr. North but has not been seen since 2018. We have been asked to see the patient in consultation for congestive heart failure. Patient examined at the bedside. Patient is admitted to the hospital secondary to COPD exacerbation. Patient was also found to have pulmonary embolism. He has been started on Eliquis. Patient currently reports shortness of breath. He denies chest pain or pressure. Echocardiogram completed revealing ejection fraction 25-30%. Mild mitral regurgitation. Mild tricuspid regurgitation. Mild pulmonary hypertension. Patient did have a previous echocardiogram completed in 2017 revealing ejection fraction 40-45%. EKG reveals sinus mechanism with nonspecific ST-T wave changes Chest xray left lower lobe mild pneumonia that is similar to old exam. I nspiration slightly improved compared to old exam. No heart failure seen. Chest CTA: Elongated filling defect in the anterior wall of the right pulmonary artery. This could be chronic thrombus. Tumor not excluded. Doppler of lower extremities: Right leg internal echoes seen within the CFV down to the popliteal vein. Proximal veins not well seen. Took a flow seen throughout veins imaged. Compressions not performed due to above the knee due to internal echoes seen. Left leg trickle flow seen from mid femoral vein down through popliteal vein. Possible chronic internal echoes within these vein segments. Vein images appear to compress incompletely. Laboratory data: WBC 13.7. Hemoglobin 16.1. Pelvic, 186. Sodium 137. Potassium 4.1. BUN 37. Creatinine 1.42. BNP 6120. REVIEW OF SYSTEMS: At the time of my exam: CONSTITUTIONAL: Denies fever or chills. HEENT: Denies blurred vision, vision changes, or eye pain. Denies hemoptysis CARDIOVASCULAR: Denies chest pain. Denies orthopnea. Denies PND. Denies palpitations RESPIRATORY: Reports shortness of breath. GASTROINTESTINAL: Denies abdominal pain. Denies nausea or vomiting. HEMATOLOGIC: Denies bleeding disorders. GENITOURINARY: Denies any blood in urine. SKIN: Denies pruitis. Denies rash. PHYSICAL EXAM: VITAL SIGNS: Reviewed. GENERAL: Well-developed in no acute distress. HEENT: Head is normocephalic. Pupils are equal, round. Sclerae anicteric. Mucous membranes of the mouth are moist. Neck supple. No JVD or thyromegaly LUNGS: Respirations even and unlabored. Lungs diminished bilaterally to auscultation bilaterally. HEART: Regular rate and rhythm. S1 and S2 heard. ABDOMEN: Soft. Nondistended. Nontender. EXTREMITIES: Normal range of motion. No clubbing or cyanosis. Peripheral pulses intact. Trace lower extremity edema NEUROLOGIC: Awake and alert. Oriented x 3. ASSESSMENT: Left lower lobe pneumonia Acute on chronic PE Acute on chronic DVT Acute COPD exacerbation Coronary artery disease with previous CABG Hypertension Hyperlipidemia Known ischemic cardiomyopathy Possible acute systolic heart failure, currently euvolemic PLAN: 2-D echo obtained and reviewed Resume home cardiac medications Continue anticoagulation with Eliquis Discontinue IV Lasix as patient is currently euvolemic. Will begin oral Lasix 40 mg daily Add Coreg and lisinopril secondary to cardiomyopathy Further recommendations pending patient course Nurse practitioner note has been reviewed by physician. Signing provider agrees with the documented findings, assessment, and plan of care. Past Medical History Past Medical History: Coronary Artery Disease (CAD), COPD, Hyperlipidemia, Hypertension, Myocardial Infarction ([place]), Pneumonia Additional Past Medical History / Comment(s): '"tremors", emphysema, back pain - pt stated that he was supposed to be getting a CT scan of his lower back over the next few days. Last Myocardial Infarction Date:: 12/2015 History of Any Multi-Drug Resistant Organisms: None Reported Past Surgical History: Coronary Bypass/CABG, Heart Catheterization, Hernia Repair, Tonsillectomy Additional Past Surgical History / Comment(s): rt inguinal hernia repair, 3 vessel cabg in 2015, carotid r side 03/24 2020 Past Anesthesia/Blood Transfusion Reactions: No Reported Reaction Additional Past Anesthesia/Blood Transfusion Reaction / Comment(s): stated never had any blood transfusions Smoking Status: Current every day smoker - Past Family History Mother Family Medical History: CVA/TIA Father Additional Family Medical History / Comment(s): aaa repair Medications and Allergies Home Medications Medication Instructions Recorded Confirmed Type Ipratropium-Albuterol Nebulize 3 ml INHALATION RT-Q6H PRN 11/03/17 06/10/21 History [Duoneb 0.5 mg-3 mg/3 ml Soln] Aspirin EC [Ecotrin Low Dose] 81 mg PO DAILY 01/20/18 06/10/21 History Albuterol Sulfate [Proair Hfa] 1 - 2 puff INHALATION Q4H PRN #1 02/21/18 06/10/21 Rx inhaler Atorvastatin Calcium [Lipitor] 80 mg PO DAILY 06/10/21 06/10/21 History Montelukast Sodium [Singulair] 10 mg PO HS 06/10/21 06/10/21 History Apixaban [Eliquis Starter Pack 0 mg PO DIRECTED 30 Days #1 pack 06/11/21 Rx (for VTE)] Allergies Allergy/AdvReac Type Severity Reaction Status Date / Time No Known Allergies Allergy Verified 06/10/21 21:26 Physical Exam Vitals: Vital Signs Temp Pulse Pulse Resp BP Pulse Ox 06/13/21 11:47 70 06/13/21 11:39 52 L 06/13/21 08:31 74 06/13/21 08:17 75 06/13/21 04:19 63 06/13/21 04:08 60 06/13/21 04:00 97.9 F 73 18 132/78 97 06/13/21 02:00 85 29 H 06/13/21 00:45 51 L 06/13/21 00:33 50 L 06/13/21 00:00 98.3 F 85 29 H 124/62 96 06/12/21 20:00 97.9 F 74 18 126/79 97 06/12/21 19:48 76 06/12/21 19:38 74 06/12/21 15:40 76 06/12/21 15:31 80 06/12/21 15:22 98.2 F 76 20 127/80 95 06/12/21 14:30 60 18 Intake and Output 06/12/21 06/13/21 06/13/21 22:59 06:59 14:59 Intake Total 240 120 Output Total 400 600 Balance -160 -600 120 Intake: Oral 240 120 Output: Urine 400 600 Other: Voiding Method Urinal Urinal Weight 72.5 kg Results 06/11/21 04:59 06/13/21 09:23 Coagulation 06/12/21 Range/Units 14:46 APTT 50.6 H (22.0-30.0) sec Comprehensive Metabolic Panel 06/13/21 Range/Units 09:23 Sodium 137 (137-145) mmol/L Potassium 4.1 (3.5-5.1) mmol/L Chloride 99 (98-107) mmol/L Carbon Dioxide 31 H (22-30) mmol/L BUN 35 H (9-20) mg/dL Creatinine 1.42 H (0.66-1.25) mg/dL Glucose 128 H (74-99) mg/dL Calcium 8.8 (8.4-10.2) mg/dL Current Medications Generic Name Dose Route Start Last Admin Trade Name Freq PRN Reason Stop Dose Admin Albuterol/Ipratropium 3 ml 06/11/21 14:28 06/13/21 04:08 Ipratropium-Albuterol 3 Ml Neb INHALATION 3 ml RT-TID PRN Administration Shortness Of Breath Or Wheezing Albuterol/Ipratropium 3 ml 06/11/21 16:00 06/13/21 11:39 Ipratropium-Albuterol 3 Ml Neb INHALATION 3 ml RT-QID JYOTSNA Administration Alprazolam 0.25 mg 06/11/21 21:37 06/13/21 00:21 Alprazolam 0.25 Mg Tab PO 0.25 mg BID PRN Administration Anxiety Apixaban 10 mg 06/12/21 21:00 06/13/21 10:02 Apixaban 5 Mg Tab PO 06/19/21 21:01 10 mg BID JYOTSNA Administration Protocol Aspirin 81 mg 06/14/21 09:00 Aspirin 81 Mg PO DAILY [facility] Atorvastatin Calcium 80 mg 06/12/21 09:00 06/13/21 10:02 Atorvastatin 80 Mg Tab PO 80 mg DAILY JYOTSNA Administration Carvedilol 1.563 mg 06/13/21 10:45 06/13/21 11:23 Carvedilol 1.563 Mg Tab PO 1.563 mg BID-W/MEALS JYOTSNA Administration Furosemide 40 mg 06/14/21 09:00 Furosemide 40 Mg Tab PO DAILY [facility] Ceftriaxone Sodium 1 gm/ 50 mls @ 100 mls/hr 06/12/21 12:45 06/13/21 10:03 Sodium Chloride IVPB 100 mls/hr Q24HR JYOTSNA Administration Lisinopril 2.5 mg 06/13/21 10:45 06/13/21 11:23 Lisinopril 2.5 Mg Tab PO 2.5 mg DAILY JYOTSNA Administration Montelukast Sodium 10 mg 06/11/21 21:00 06/12/21 20:48 Montelukast 10 Mg Tab PO 10 mg HS JYOTSNA Administration Nicotine 1 patch 06/12/21 12:30 06/13/21 10:02 Nicotine 14mg/24hr Patch TRANSDERM 1 patch DAILY JYOTSNA Administration Nitroglycerin 0.4 mg 06/11/21 00:34 Nitroglycerin Sl Tabs 0.4 Mg Tab SUBLINGUAL Q5M PRN Chest Pain Prednisone 40 mg 06/11/21 11:00 06/13/21 10:02 Prednisone 20 Mg Tab PO 40 mg DAILY JYOTSNA Administration Intake and Output 06/12/21 06/13/21 06/13/21 22:59 06:59 14:59 Intake Total 240 120 Output Total 400 600 Balance -160 -600 120 Intake: Oral 240 120 Output: Urine 400 600 Other: Voiding Method Urinal Urinal Weight 72.5 kg 06/11/21 04:59 06/13/21 09:23
--- NOTE | 2021-06-13 14:58 | P.PN ---
Subjective Progress Note Date: 06/13/21 Patient is a pleasant 70-year-old male came in with the complaints of shortness of breath, found to be in COPD exacerbation patient will also complaining of bilateral lower extremity swelling. The lower extremity Doppler showed bilateral acute on chronic DVTs. Patient also had possible pulmonary embolism. Patient is mostly sedentary. Patient can use to smoke about one pack of cigarettes per day used to smoke about 3 packs a day. Patient initially wanted to go home and is insisting on going home but family is requesting social work consult and physical therapy occupational therapy evaluation as patient doesn't take care of himself and the hasn't been much functional lately. Patient is still wheezing on exam saturated well on 2 L but desaturates upon ambulation to 89% without oxygen. Patient is on oral prednisone and inhalational treatments at this time. 06/12/2021 Patient is evaluated today at the bedside, he still has a complaint of shortness of breath and nonproductive cough. However he denies chest pain. Patient reports to smoking one pack of cigarettes a day, patient has requested a nicotine patch to which one has been ordered. Patient is wheezy, receiving breathing treatments. Echocardiogram which revealed an ejection fraction of 25- 30%, mild pulmonary hypertension, mild mitral regurgitation, mild tricuspid regurgitation, mild concentric left ventricular hypertrophy. This x-ray revealed left lower lobe mild pneumonia similar compared to old, no heart failure seen. Patient's BNP on admission was 6120. Patient has been started on IV Lasix 40 mg IV twice a day, and cardiology consultation is in place for new onset congestive heart failure. Previous echo for comparison was a MICHELLE that was completed in December 2016, that revealed a normal size wall motion and systolic function of the left ventricle. Patient was seen in consult by pulmonary services who recommended continuing heparin drip for the next 24-48 hours at that time patient may be transitioned to an oral anticoagulation. Pulmonary services has started patient on IV Rocephin for pneumonia. Patient is on oral steroid daily. Patient was seen in consultation by surgical services in follow- up for the chest CTA. CT revealed an elongated filling defect in the right pulmonary artery questioning and chronic thrombus versus possible tumor. Surgical services is recommending any intervention at this time, and would like a follow-up from pulmonary services regarding the location of this tumor versus chronic thrombus. There is no evidence of right heart strain on imaging or lab values. Lower extremity venous Doppler revealed acute on chronic DVT in bilateral legs to which patient has maintained on an IV heparin infusion. Patient is encouraged to use incentive spirometer. Vital signs are stable, and patient is maintaining oxygen saturation 97% on room air. Leukocytosis is improving patient will remain on IV antibiotics. Cardiac enzymes are negative 3. 06/13/2021 Patient is evaluated sitting up at the bedside today. Patient states that insurance of breath is improving, patient is still reporting cough. Patient denies chest pain. Patient was transitioned to eliquis for DVT prophylaxis. Cardiology has transitioned the patient from IV Lasix to oral Lasix today. They have also added Coreg and lisinopril. She is following closely along with this patient. Patient is doing well with his nicotine patch, encourage incentive spirometry. Patient is uncertain IV antibiotics for possible pneumonia from pulmonary services. Patient today is requesting a medication for an essential tremor. In the past patient has been trialed on primidone, patient stated that he did not have much luck with this. Continue to encourage ambulation, patient would benefit from a PT/ OT consultation for discharge planning. Per RN patient states that he will not go to rehab at this time. Patient remains afebrile, heart rate sinus rhythm in 70s, patient is 100% on 2 L nasal cannula, continue to wean oxygen as tolerated. Patient's blood pressure is 146/80 today. ROS: Constitutional: Denied any fatigue denied any fever. Cardio vascular: denied any chest pain, palpitations, reports mild LE edema Gastrointestinal denied any nausea vomiting Pulmonary: Reports SOB with activity, Reports nonproductive cough Neurologic denied any new focal deficits All inpatient medications were reviewed and appropriate changes in these medications as dictated in the interval history and assessment and plan. PHYSICAL EXAMINATION: GENERAL: The patient is alert and oriented x3, not in any acute distress. Well developed, well nourished. HEENT: Pupils are round and equally reacting to light. EOMI. No scleral icterus. No conjunctival pallor. Normocephalic, atraumatic. No pharyngeal erythema. No thyromegaly. CARDIOVASCULAR: S1 and S2 present. No murmurs, rubs, or gallops. PULMONARY: Bilateral posterior upper and lower lobes are rhonchorous, coarse wheezing ABDOMEN: Soft, nontender, nondistended, normoactive bowel sounds. No palpable organomegaly. MUSCULOSKELETAL: No joint swelling or deformity. EXTREMITIES: No cyanosis, clubbing, mild +1 ankle edema NEUROLOGICAL: Gross neurological examination did not reveal any focal deficits. SKIN: No rashes. Assessment and plan -Acute hypoxic and hypercapnic respiratory failure secondary to COPD exacerbation as well as possible pulmonary embolism. Patient has been transitioned to Eliquis. -Patient's bilateral lower extremity DVT is secondary to his sedentary lifestyle, patient is on eliquis -COPD with acute exacerbation nicotine cessation counseling was provided patient was started on prednisone patient will be continued on inhalational treatments. -Coronary artery disease with history of CABG in the past -hyperlipidemia continue on Lipitor - hypertension - patient started on Coreg and lisinopril per cardiology services -New onset acute congestive heart failure, systolic - current ejection fraction 25-30%. Patient has been transitioned to PO lasix -Pulmonary embolism versus tumor, patient has been started on IV heparin, evaluated by surgical services who is awaiting input from pulmonary services regarding recommendations. Leukocytosis, related to pneumonia, improving down to 13.7. Patient has been started on IV antibiotics. Lactic acid normal at 1.3 on admission. Blood cultures negative 2. Possible Left lower lobe pneumonia, present on admission, pulmonary service is following. Patient started on IV Rocephin. Repeat CBC in the morning. -Nicotine dependence, patient has been started on a nicotine patch. DVT prophylaxis: Eliquis Patient will be started on all Eliquis for DVT PE protocol. Appreciate cardiology consultation, patient has been transitioned to by mouth Lasix, patient has been started on Coreg and lisinopril. Patient will be followed along closely. Repeat lites in the morning. Patient is being followed closely pulmonary services, patient was started on IV antibiotics for a possible pneumonia, Continue on oral steroids, continue on breathing treatments. Continue with nicotine patch. Continue to encourage ambulation, and continue incentive spirometer. Patient will need to be evaluated by physical therapy and occupational therapy for discharge planning. Objective - Vital Signs Vital signs: Vital Signs Temp 97.5 F L 06/13/21 11:20 Pulse 70 06/13/21 11:47 Resp 18 06/13/21 11:20 BP 146/80 06/13/21 11:20 Pulse Ox 100 06/13/21 11:20 Intake & Output 06/12/21 06/13/21 06/13/21 18:59 06:59 18:59 Intake Total 880 220 Output Total 600 1000 1600 Balance 280 -1000 -1380 Weight 72.5 kg Intake: Oral 880 220 Output: Urine 600 1000 1600 Other: Voiding Method Urinal Urinal Urinal # Voids 3 # Bowel Movements 0 - Labs CBC & Chem 7: 06/11/21 04:59 06/13/21 09:23 Labs: Abnormal Lab Results - Last 24 Hours (Table) 06/12/21 06/13/21 Range/Units 14:46 09:23 APTT 50.6 H (22.0-30.0) sec Carbon Dioxide 31 H (22-30) mmol/L BUN 35 H (9-20) mg/dL Creatinine 1.42 H (0.66-1.25) mg/dL Glucose 128 H (74-99) mg/dL Microbiology - Last 24 Hours (Table) 06/10/21 23:01 Blood Culture - Preliminary Blood No Growth after 48 hours 06/10/21 23:20 Blood Culture - Preliminary Blood No Growth after 48 hours Assessment and Plan Time with Patient: Greater than 30
[2021-06-13 20:21] LABS: Glucose,Whole Blood 123 mg/dL (75-99)
[2021-06-13] MEDS: INSULIN ASPART (NovoLOG) 100 UNIT/ML VIAL SQ SCH (20:33)
[2021-06-13] MEDS: MONTELUKAST 10 MG TAB PO SCH (20:38)
[2021-06-14] MEDS: IPRATROPIUM-ALBUTEROL 3 ML NEB INHALATION PRN ×4 (00:06→23:38)
[2021-06-14 06:09] LABS: Glucose,Whole Blood 99 mg/dL (75-99)
[2021-06-14] MEDS: INSULIN ASPART (NovoLOG) 100 UNIT/ML VIAL SQ SCH ×4 (06:12→20:21)
[2021-06-14] MEDS: ALPRAZolam 0.25 MG TAB PO PRN ×2 (06:42→20:30)
[2021-06-14 08:48] LABS: Calcium 8.7 mg/dL (8.4-10.2); Potassium 4.2 mmol/L (3.5-5.1)
[2021-06-14] MEDS: IPRATROPIUM-ALBUTEROL 3 ML NEB INHALATION SCH ×3 (09:15→19:46)
[2021-06-14] MEDS: ASPIRIN 81 MG PO SCH (09:35)
[2021-06-14] MEDS: predniSONE 20 MG TAB PO SCH (09:35)
[2021-06-14] MEDS: ATORVASTATIN 80 MG TAB PO SCH (09:36)
[2021-06-14] MEDS: APIXABAN 5 MG TAB PO SCH ×2 (09:36→20:30)
[2021-06-14] MEDS: FUROSEMIDE 40 MG TAB PO SCH (09:36)
[2021-06-14] MEDS: NICOTINE 14MG/24HR PATCH TRANSDERM SCH (09:37)
[2021-06-14 11:34] LABS: Glucose,Whole Blood 111 mg/dL (75-99)
--- NOTE | 2021-06-14 12:46 | P.PN ---
Subjective Progress Note Date: 06/14/21 Principal diagnosis: Left lower lobe pneumonia Acute on chronic pulmonary embolism with Acute on chronic DVT End-stage lung disease secondary due to 2 severe COPD emphysema Acute on chronic hypoxic respiratory failure 06/14/2021, patient remains on 3 L oxygen ongoing shortness of breath the severity of cough congestion has improved however, patient remains on broad-spectrum antibiotics, blood cultures have been negative so far, Patient is a 70-year-old male presented emergency department with increasing reading difficulty for 3-4 day duration, denies any chest pain intermittent cough nonproductive, patient has a baseline extensive history of COPD, chest x- ray significant for left lower lobe pneumonia, computed tomography scan of the chest positive for a filling defect in the right pulmonary vasculature appeared to be thrombus, ultrasound of the lower extremity positive for chronic and acute DVT, currently patient is being treated with bronchodilator gentle diuresis heparin drip as per protocol and continuation of his medications, and prednisone, white cell count arrival were noted to be 19,000. Down to 13,000 now Objective - Vital Signs Vital signs: Vital Signs Temp 97.8 F 06/14/21 11:10 Pulse 62 06/14/21 11:12 Resp 16 06/14/21 11:10 BP 129/76 06/14/21 11:10 Pulse Ox 96 06/14/21 11:10 Intake & Output 06/13/21 06/14/21 06/14/21 18:59 06:59 18:59 Intake Total 220 0 Output Total 1600 1000 Balance -1380 -1000 0 Weight 71.6 kg Intake: Oral 220 0 Output: Urine 1600 1000 Other: Voiding Method Urinal Urinal Urinal # Bowel Movements 0 - Exam - Constitutional General appearance: average body habitus, cooperative, disheveled - EENT Eyes: EOMI, PERRLA Ears: bilateral: normal - Neck Neck: normal ROM Carotids: bilateral: upstroke normal Thyroid: bilateral: normal size - Respiratory Respiratory: bilateral: diminished - Cardiovascular Rhythm: regular Heart sounds: normal: S1, S2 - Gastrointestinal General gastrointestinal: soft - Integumentary Integumentary: normal turgor - Neurologic Neurologic: CNII-XII intact - Musculoskeletal Musculoskeletal: gait normal, generalized weakness, strength equal bilaterally - Psychiatric Psychiatric: A&O x's 3, appropriate affect, intact judgment & insight - Labs CBC & Chem 7: 06/11/21 04:59 06/14/21 07:41 Labs: Abnormal Lab Results - Last 24 Hours (Table) 06/13/21 06/14/21 06/14/21 Range/Units 20:20 07:41 11:32 Sodium 134 L (137-145) mmol/L BUN 31 H (9-20) mg/dL Glucose 102 H (74-99) mg/dL POC Glucose (mg/dL) 123 H 111 H (75-99) mg/dL Microbiology - Last 24 Hours (Table) 06/10/21 23:01 Blood Culture - Preliminary Blood No Growth after 72 hours 06/10/21 23:20 Blood Culture - Preliminary Blood No Growth after 72 hours Assessment and Plan Assessment: Left lower lobe pneumonia Acute on chronic pulmonary embolism with Acute on chronic DVT Acute on chronic hypoxic history failure End-stage lung disease secondary due to 2 severe COPD emphysema Plan: Continue oral direct anticoagulant IV antibiotics with Rocephin Continuation of home medications Patient will likely need home oxygen reassess prior to discharge Time with Patient: Greater than 30
--- NOTE | 2021-06-14 14:04 | P.PN ---
Subjective Progress Note Date: 06/14/21 Patient is a pleasant 70-year-old male came in with the complaints of shortness of breath, found to be in COPD exacerbation patient will also complaining of bilateral lower extremity swelling. The lower extremity Doppler showed bilateral acute on chronic DVTs. Patient also had possible pulmonary embolism. Patient is mostly sedentary. Patient can use to smoke about one pack of cigarettes per day used to smoke about 3 packs a day. Patient initially wanted to go home and is insisting on going home but family is requesting social work consult and physical therapy occupational therapy evaluation as patient doesn't take care of himself and the hasn't been much functional lately. Patient is still wheezing on exam saturated well on 2 L but desaturates upon ambulation to 89% without oxygen. Patient is on oral prednisone and inhalational treatments at this time. 06/12/2021 Patient is evaluated today at the bedside, he still has a complaint of shortness of breath and nonproductive cough. However he denies chest pain. Patient reports to smoking one pack of cigarettes a day, patient has requested a nicotine patch to which one has been ordered. Patient is wheezy, receiving breathing treatments. Echocardiogram which revealed an ejection fraction of 25- 30%, mild pulmonary hypertension, mild mitral regurgitation, mild tricuspid regurgitation, mild concentric left ventricular hypertrophy. This x-ray revealed left lower lobe mild pneumonia similar compared to old, no heart failure seen. Patient's BNP on admission was 6120. Patient has been started on IV Lasix 40 mg IV twice a day, and cardiology consultation is in place for new onset congestive heart failure. Previous echo for comparison was a MICHELLE that was completed in December 2016, that revealed a normal size wall motion and systolic function of the left ventricle. Patient was seen in consult by pulmonary services who recommended continuing heparin drip for the next 24-48 hours at that time patient may be transitioned to an oral anticoagulation. Pulmonary services has started patient on IV Rocephin for pneumonia. Patient is on oral steroid daily. Patient was seen in consultation by surgical services in follow- up for the chest CTA. CT revealed an elongated filling defect in the right pulmonary artery questioning and chronic thrombus versus possible tumor. Surgical services is recommending any intervention at this time, and would like a follow-up from pulmonary services regarding the location of this tumor versus chronic thrombus. There is no evidence of right heart strain on imaging or lab values. Lower extremity venous Doppler revealed acute on chronic DVT in bilateral legs to which patient has maintained on an IV heparin infusion. Patient is encouraged to use incentive spirometer. Vital signs are stable, and patient is maintaining oxygen saturation 97% on room air. Leukocytosis is improving patient will remain on IV antibiotics. Cardiac enzymes are negative 3. 06/13/2021 Patient is evaluated sitting up at the bedside today. Patient states that insurance of breath is improving, patient is still reporting cough. Patient denies chest pain. Patient was transitioned to eliquis for DVT prophylaxis. Cardiology has transitioned the patient from IV Lasix to oral Lasix today. They have also added Coreg and lisinopril. She is following closely along with this patient. Patient is doing well with his nicotine patch, encourage incentive spirometry. Patient is uncertain IV antibiotics for possible pneumonia from pulmonary services. Patient today is requesting a medication for an essential tremor. In the past patient has been trialed on primidone, patient stated that he did not have much luck with this. Continue to encourage ambulation, patient would benefit from a PT/ OT consultation for discharge planning. Per RN patient states that he will not go to rehab at this time. Patient remains afebrile, heart rate sinus rhythm in 70s, patient is 100% on 2 L nasal cannula, continue to wean oxygen as tolerated. Patient's blood pressure is 146/80 today. 06/14/2021 Patient is evaluated sitting up at the bedside today. Patient states that his shortness of breath is improving, patient reports cough, denies chest pain. Patient continues on eliquis, Coreg, lisinopril. Patient continues on a nicotine patch, encourage incentive spirometry. PT OT consultation recommends home with home care. Patient continues on IV antibiotics per pulmonary recommendations. Patient denies using oxygen at home at this time. He states that he has used oxygen at home when the past. Patient states that he did not really need it anymore. 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 Patient will need a home oxygen evaluation the day of discharge. Patient has been cleared from the cardiology unit and can be transferred to the medical surgical floor. Vital signs are stable today, patient remains afebrile. Patient is able to ablate without difficulty. ROS: Constitutional: Denied any fatigue denied any fever. Cardio vascular: denied any chest pain, palpitations, reports mild LE edema Gastrointestinal denied any nausea vomiting Pulmonary: Reports SOB with activity, Reports nonproductive cough Neurologic denied any new focal deficits All inpatient medications were reviewed and appropriate changes in these medications as dictated in the interval history and assessment and plan. PHYSICAL EXAMINATION: GENERAL: The patient is alert and oriented x3, not in any acute distress. Well developed, well nourished. HEENT: Pupils are round and equally reacting to light. EOMI. No scleral icterus. No conjunctival pallor. Normocephalic, atraumatic. No pharyngeal erythema. No thyromegaly. CARDIOVASCULAR: S1 and S2 present. No murmurs, rubs, or gallops. PULMONARY: Bilateral posterior upper and lower lobes are rhonchorous, coarse wheezing ABDOMEN: Soft, nontender, nondistended, normoactive bowel sounds. No palpable organomegaly. MUSCULOSKELETAL: No joint swelling or deformity. EXTREMITIES: No cyanosis, clubbing, mild +1 ankle edema NEUROLOGICAL: Gross neurological examination did not reveal any focal deficits. SKIN: No rashes. Assessment and plan -Acute hypoxic and hypercapnic respiratory failure secondary to COPD exacerbation as well as possible pulmonary embolism. Patient has been transitioned to Eliquis. -Patient's bilateral lower extremity DVT is secondary to his sedentary lifestyle, patient is on eliquis -COPD with acute exacerbation nicotine cessation counseling was provided patient was started on prednisone patient will be continued on inhalational treatments. -Coronary artery disease with history of CABG in the past -hyperlipidemia continue on Lipitor - hypertension - patient started on Coreg and lisinopril per cardiology services -New onset acute congestive heart failure, systolic - current ejection fraction 25-30%. Patient has been transitioned to PO lasix -Pulmonary embolism versus tumor, this is an acute on chronic PE per pulmonary services Leukocytosis, related to pneumonia, improving down to 13.7. Patient has been started on IV antibiotics. Lactic acid normal at 1.3 on admission. Blood cultures negative 2. Possible Left lower lobe pneumonia, present on admission, pulmonary service is following. Patient started on IV Rocephin. -Nicotine dependence, patient has been started on a nicotine patch. DVT prophylaxis: Eliquis Patient started on all Eliquis for DVT PE protocol. Appreciate cardiology consultation, patient has been transitioned to by mouth Lasix, patient has been started on Coreg and lisinopril. Patient will be followed along closely. Repeat lites in the morning. Patient is being followed closely pulmonary services, patient was started on IV antibiotics for a possible pneumonia, Continue on oral steroids, continue on breathing treatments. Continue with nicotine patch. Continue to encourage ambulation, and continue incentive spirometer. PT OT recommended home with home care services on discharge, patient will need a home oxygen evaluation prior to discharge from the hospital. Patient can be transferred to the medical surgical unit. Objective - Vital Signs Vital signs: Vital Signs Temp 97.8 F 06/14/21 11:10 Pulse 62 06/14/21 11:12 Resp 16 06/14/21 11:10 BP 129/76 06/14/21 11:10 Pulse Ox 96 06/14/21 11:10 Intake & Output 06/13/21 06/14/21 06/14/21 18:59 06:59 18:59 Intake Total 220 118 Output Total 1600 1000 Balance -1380 -1000 118 Weight 71.6 kg Intake: Oral 220 118 Output: Urine 1600 1000 Other: Voiding Method Urinal Urinal Urinal # Bowel Movements 0 - Labs CBC & Chem 7: 06/11/21 04:59 06/14/21 07:41 Labs: Abnormal Lab Results - Last 24 Hours (Table) 06/13/21 06/14/21 06/14/21 Range/Units 20:20 07:41 11:32 Sodium 134 L (137-145) mmol/L BUN 31 H (9-20) mg/dL Glucose 102 H (74-99) mg/dL POC Glucose (mg/dL) 123 H 111 H (75-99) mg/dL Microbiology - Last 24 Hours (Table) 06/10/21 23:01 Blood Culture - Preliminary Blood No Growth after 72 hours 06/10/21 23:20 Blood Culture - Preliminary Blood No Growth after 72 hours Assessment and Plan Time with Patient: Greater than 30
--- NOTE | 2021-06-14 14:41 | P.PN ---
Subjective Progress Note Date: 06/14/21 HISTORY OF PRESENT ILLNESS: This is a 70-year-old male with a past medical history significant for COPD, coronary artery disease with previous CABG, hypertension, and hyperlipidemia. Patient used to follow in the office with Dr. North but has not been seen since 2018. We have been asked to see the patient in consultation for congestive heart failure. Patient examined at the bedside. Patient is admitted to the hospital secondary to COPD exacerbation. Patient was also found to have pulmonary embolism. He has been started on Eliquis. Patient currently reports shortness of breath. He denies chest pain or pressure. Echocardiogram completed revealing ejection fraction 25-30%. Mild mitral regurgitation. Mild tricuspid regurgitation. Mild pulmonary hypertension. Patient did have a previous echocardiogram completed in 2017 revealing ejection fraction 40-45%. EKG reveals sinus mechanism with nonspecific ST-T wave changes Chest xray left lower lobe mild pneumonia that is similar to old exam. Inspiration slightly improved compared to old exam. No heart failure seen. Chest CTA: Elongated filling defect in the anterior wall of the right pulmonary artery. This could be chronic thrombus. Tumor not excluded. Doppler of lower extremities: Right leg internal echoes seen within the CFV down to the popliteal vein. Proximal veins not well seen. Took a flow seen throughout veins imaged. Compressions not performed due to above the knee due to internal echoes seen. Left leg trickle flow seen from mid femoral vein down through popliteal vein. Possible chronic internal echoes within these vein segments. Vein images appear to compress incompletely. Laboratory data: WBC 13.7. Hemoglobin 16.1. Pelvic, 186. Sodium 137. Potassium 4.1. BUN 37. Creatinine 1.42. BNP 6120. 06/14/2021 Patient examined this morning at the bedside. Patient denies chest pain or pressure. He denies shortness of breath. He remains on anti-correlation with Eliquis. Vital signs are stable. PHYSICAL EXAM: VITAL SIGNS: Reviewed. GENERAL: Well-developed in no acute distress. HEENT: Head is normocephalic. Pupils are equal, round. Sclerae anicteric. Mucous membranes of the mouth are moist. Neck supple. No JVD or thyromegaly LUNGS: Respirations even and unlabored. Lungs diminished bilaterally to auscultation bilaterally. HEART: Regular rate and rhythm. S1 and S2 heard. ABDOMEN: Soft. Nondistended. Nontender. EXTREMITIES: Normal range of motion. No clubbing or cyanosis. Peripheral pulses intact. Trace lower extremity edema NEUROLOGIC: Awake and alert. Oriented x 3. ASSESSMENT: Left lower lobe pneumonia Acute on chronic PE Acute on chronic DVT Acute COPD exacerbation Coronary artery disease with previous CABG Hypertension Hyperlipidemia Known ischemic cardiomyopathy Possible acute systolic heart failure, currently euvolemic PLAN: Continue telemetry monitoring Continue current cardiac medications Further recommendations pending patient course Nurse practitioner note has been reviewed by physician. Signing provider agrees with the documented findings, assessment, and plan of care. Objective - Vital Signs Vital signs: Vital Signs Temp 97.8 F 06/14/21 11:10 Pulse 62 06/14/21 11:12 Resp 16 06/14/21 11:10 BP 129/76 06/14/21 11:10 Pulse Ox 96 06/14/21 11:10 Intake & Output 06/13/21 06/14/21 06/14/21 18:59 06:59 18:59 Intake Total 220 118 Output Total 1600 1000 Balance -1380 -1000 118 Weight 71.6 kg Intake: Oral 220 118 Output: Urine 1600 1000 Other: Voiding Method Urinal Urinal Urinal # Bowel Movements 0 - Labs CBC & Chem 7: 06/11/21 04:59 06/14/21 07:41 Labs: Abnormal Lab Results - Last 24 Hours (Table) 06/13/21 06/14/21 06/14/21 Range/Units 20:20 07:41 11:32 Sodium 134 L (137-145) mmol/L BUN 31 H (9-20) mg/dL Glucose 102 H (74-99) mg/dL POC Glucose (mg/dL) 123 H 111 H (75-99) mg/dL Microbiology - Last 24 Hours (Table) 06/10/21 23:01 Blood Culture - Preliminary Blood No Growth after 72 hours 06/10/21 23:20 Blood Culture - Preliminary Blood No Growth after 72 hours
[2021-06-14 16:48] LABS: Glucose,Whole Blood 126 mg/dL (75-99)
[2021-06-14 20:11] LABS: Glucose,Whole Blood 96 mg/dL (75-99)
[2021-06-14] MEDS: CEFDINIR 300 MG CAP PO SCH (20:30)
[2021-06-14] MEDS: MONTELUKAST 10 MG TAB PO SCH (20:30)
[2021-06-14] MEDS: GABAPENTIN 100 MG CAP PO SCH (20:31)
[2021-06-15] MEDS: IPRATROPIUM-ALBUTEROL 3 ML NEB INHALATION PRN (03:37)
[2021-06-15 06:19] LABS: Glucose,Whole Blood 150 mg/dL (75-99)
[2021-06-15] MEDS: INSULIN ASPART (NovoLOG) 100 UNIT/ML VIAL SQ SCH ×4 (06:50→20:38)
[2021-06-15] MEDS: IPRATROPIUM-ALBUTEROL 3 ML NEB INHALATION SCH ×4 (07:42→20:19)
[2021-06-15] MEDS: NICOTINE 14MG/24HR PATCH TRANSDERM SCH (09:23)
[2021-06-15] MEDS: ATORVASTATIN 80 MG TAB PO SCH (09:23)
[2021-06-15 09:24] LABS: HCT 50.1 % (39.0-53.0); HGB 16.4 gm/dL (13.0-17.5); MCH 30.7 pg (25.0-35.0); MCHC 32.7 g/dL (31.0-37.0); MCV 93.9 fL (80.0-100.0); Mean Platelet Volume 7.5; Platelet Count 146 k/uL (150-450); RBC 5.34 m/uL (4.30-5.90); RDW 12.7 % (11.5-15.5); WBC 8.8 k/uL (3.8-10.6)
[2021-06-15] MEDS: predniSONE 20 MG TAB PO SCH (09:24)
[2021-06-15] MEDS: GABAPENTIN 100 MG CAP PO SCH ×2 (09:24→20:37)
[2021-06-15] MEDS: APIXABAN 5 MG TAB PO SCH ×2 (09:24→20:37)
[2021-06-15] MEDS: CEFDINIR 300 MG CAP PO SCH ×2 (09:24→20:37)
[2021-06-15] MEDS: FUROSEMIDE 40 MG TAB PO SCH (09:24)
[2021-06-15] MEDS: ASPIRIN 81 MG PO SCH ×2 (09:25→09:28)
[2021-06-15] MEDS: METOPROLOL TARTRATE 12.5 MG TAB PO SCH ×2 (10:53→20:38)
[2021-06-15 11:48] LABS: Glucose,Whole Blood 87 mg/dL (75-99)
--- NOTE | 2021-06-15 13:06 | P.DS ---
Providers Date of admission: 06/11/21 00:37 Attending physician: Vilma Ellis Consults: 06/11/21 20:05 Consult Physician Routine Consulting Provider: Ezequiel Bhatia Consult Reason/Comments: dyspnea, DVT Do you want consulting provider notified?: Yes 06/12/21 12:18 Consult Physician Routine Consulting Provider: Nannette North Consult Reason/Comments: new onset CHF Do you want consulting provider notified?: Yes Primary care physician: Donita Darden [facility] Course: Final diagnoses -Acute hypoxic and hypercapnic respiratory failure secondary to COPD exacerbation as well as possible pulmonary embolism. Patient has been transitioned to Eliquis. -Patient's bilateral lower extremity DVT is secondary to his sedentary lifestyle, patient is on eliquis -COPD with acute exacerbation nicotine cessation counseling was provided patient was started on prednisone patient will be continued on inhalational treatments. -Coronary artery disease with history of CABG in the past -hyperlipidemia continue on Lipitor - hypertension - patient on metoprolol and lisinopril per cardiology services -New onset acute congestive heart failure, systolic - current ejection fraction 25-30%. Patient has been transitioned to PO lasix -Pulmonary embolism versus tumor, this is an acute on chronic PE per pulmonary services Leukocytosis, related to pneumonia, improving down to 13.7. Patient has been started on IV antibiotics. Lactic acid normal at 1.3 on admission. Blood cultures negative 2. Patient discharged home on oral antibiotics Possible Left lower lobe pneumonia, present on admission, pulmonary service is following. Incentive spirometry, antibiotics -Nicotine dependence, patient has been started on a nicotine patch. Discharge disposition Patient is discharged home with home healthcare services, physical therapy. Patient was evaluated by physical therapy, no recommendations for subacute rehab at this time. Patient is alert and oriented 3. Patient denies the need for smoking cessation therapies. Denies any for a nicotine patch. Reinforcement will need to be continued from family and home care services for smoking cessation regarding the discharge on nasal cannula. Patient is counseled extensively on smoking cessation. Patient will follow-up with cardiology, pulmonary, primary care services. Patient will be discharged on a steroid taper, finish course of oral antibiotics. In addition patient is discharged on eliquis for VTE protocol. Hospital course This is a 70-year-old male who came into the ER with complaints of shortness of breath, admitted with COPD exacerbation. In addition patient has been complaining of bilateral lower extremity swelling. Lower x-ray Doppler revealed bilateral acute on chronic DVTs. In addition patient also had a possible pulmonary embolism, patient continues to smoke one pack of cigarettes per day however he used to smoke 3 packs per day. Patient desats on ambulation to 89% without oxygen, has maintained on 2-3 L of oxygen his hospital stay. Patient takes oral prednisone, and breathing treatments at home. Patient states that he does not follow with a lung doctor. Patient was started this admission on Eliquis for acute on chronic DVT and PE. Patient in addition was evaluated by cardiology services, for a new onset acute congestive heart failure, systolic. Patient's ejection fraction was 25-30% this admission. Patient's echo from 2017 revealed an ejection fraction of 40-45%. Patient was also started on lisinopril, metoprolol will continue on baby aspirin. Patient was started on oral Lasix and will be discharged on this with a repeat electrolyte panel in 2 days. Patient will need to follow up with cardiology outpatient. Patient was evaluated by Dr. Bhatia for pulmonary services for an acute thrombus versus tumor. Dr. Bhatia treated patient for an acute on chronic PE, patient is discharged on Eliquis. In addition Dr. Bhatia treated patient for suspicious pneumonia with IV Rocephin. Patient was transitioned to oral Omnicef on discharge. Patient will follow-up with pulmonary services. Patient will continue on his home inhaler, nebulizers, as well as a steroid taper. Patient was evaluated for home oxygen and this admission patient was found to be 76% on room air. Patient be discharged on oxygen via nasal cannula and prescription was sent to case management. Patient needs strong reinforcement regarding smoking cessation due to the need for oxygen via nasal cannula on discharge. Patient will need to continue using his incentive spirometry on discharge. Patient also complained of a mild tremor this admission he states that this has been going on for about 5 years. Patient states that in the past he was trialed on primidone however he states that it did not work for his tremors. Patient was started on gabapentin this admission for an essential tremor. Patient was discharged on a small dose, and patient can follow up with his primary care provider if this is to be continued. 06/15/2021 Patient was evaluated today sitting up at the bedside. Patient states that his shortness of breath is much improved, denies chest pain, reports intermittent dry cough. Patient will continue on oral antibiotics on discharge. Patient is encouraged to continue using his incentive spirometer. Patient is alert and oriented 3, states that he is ambulating without difficulty with a walker. Patient states that the swelling in his legs much improved. Patient is displaying some mild expiratory wheezing, patient will continue on his home inhaler, nebulizers. Patient will follow-up with pulmonary services for further management of his COPD. Patient will be discharged on all current cardiac medications that were started this hospitalization. As well as Eliquis for an acute on chronic DVT and acute on chronic PE. Vital signs are stable today with a temperature of 97.6, heart rate sinus rhythm the 60s, blood pressure 141/85. Patient was evaluated today with a home oxygen pulse ox test. Patient was 76% ambulating on room air, patient will be sent home on oxygen via nasal cannula. Prescription was sent to the binder caser. Patient will follow up with a metabolic panel outpatient. Patient Condition at Discharge: Fair Plan - Discharge Summary Discharge Rx Participant: No New Discharge Prescriptions: New methylPREDNISolone Dose Pack [Medrol Dose Pack] 4 mg PO DIRECTED #21 package Gabapentin [Neurontin] 200 mg PO BID #12 cap lisinopriL [Zestril] 2.5 mg PO DAILY #30 tab Apixaban [Eliquis] 5 mg PO BID #60 tab Aspirin 81 mg PO DAILY #30 chew Furosemide [Lasix] 40 mg PO DAILY #30 tab Metoprolol Tartrate [Lopressor] 12.5 mg PO BID #60 tab Cefdinir [Omnicef] 300 mg PO BID #6 cap Apixaban [Eliquis] 10 mg PO BID 4 Days #8 tablet Continue Ipratropium-Albuterol Nebulize [Duoneb 0.5 mg-3 mg/3 ml Soln] 3 ml INHALATION RT-Q6H PRN PRN Reason: Shortness Of Breath Aspirin EC [Ecotrin Low Dose] 81 mg PO DAILY Albuterol Sulfate [Proair Hfa] 1 - 2 puff INHALATION Q4H PRN #1 inhaler PRN Reason: Shortness Of Breath Montelukast Sodium [Singulair] 10 mg PO HS Atorvastatin Calcium [Lipitor] 80 mg PO DAILY Discontinued lisinopriL 20 mg PO DAILY Discharge Medication List Ipratropium-Albuterol Nebulize [Duoneb 0.5 mg-3 mg/3 ml Soln] 3 ml INHALATION RT-Q6H PRN 11/03/17 [History] Aspirin EC [Ecotrin Low Dose] 81 mg PO DAILY 01/20/18 [History] Albuterol Sulfate [Proair Hfa] 1 - 2 puff INHALATION Q4H PRN #1 inhaler 02/21/18 [Rx] Atorvastatin Calcium [Lipitor] 80 mg PO DAILY 06/10/21 [History] Montelukast Sodium [Singulair] 10 mg PO HS 06/10/21 [History] Apixaban [Eliquis] 5 mg PO BID #60 tab 06/15/21 [Rx] Apixaban [Eliquis] 10 mg PO BID 4 Days #8 tablet 06/15/21 [Rx] Aspirin 81 mg PO DAILY #30 chew 06/15/21 [Rx] Cefdinir [Omnicef] 300 mg PO BID #6 cap 06/15/21 [Rx] Furosemide [Lasix] 40 mg PO DAILY #30 tab 06/15/21 [Rx] Gabapentin [Neurontin] 200 mg PO BID #12 cap 06/15/21 [Rx] Metoprolol Tartrate [Lopressor] 12.5 mg PO BID #60 tab 06/15/21 [Rx] lisinopriL [Zestril] 2.5 mg PO DAILY #30 tab 06/15/21 [Rx] methylPREDNISolone Dose Pack [Medrol Dose Pack] 4 mg PO DIRECTED #21 package 06/15/21 [Rx] Follow up Appointment(s)/Referral(s): Ezequiel Bhatia MD [STAFF PHYSICIAN] - 1 Week Nannette North MD [STAFF PHYSICIAN] - 1 Week Nishant Forbes DO [Doctor of Osteopathic Medicine] - 3 Days [facility] Visiting Nurse, [NON-STAFF] - Ambulatory/Diagnostic Orders: Basic Metabolic Panel [LAB.AMB] Time Frame: 2 Days, Location: None Selected Activity/Diet/Wound Care/Special Instructions: Patient is covered for Eliquis with his Medicaid Patient will only need 4 more days Eliquis 10 mg PO BID, then he may transition to 5 mg PO BID. Patient will be discharged home with home care and home physical therapy Patient will need a ambulating pulse ox test prior to discharge Discharge Disposition: HOME WITH HOME HEALTH SERVICES
--- NOTE | 2021-06-15 13:19 | P.PN ---
Subjective Progress Note Date: 06/15/21 Patient is a pleasant 70-year-old male came in with the complaints of shortness of breath, found to be in COPD exacerbation patient will also complaining of bilateral lower extremity swelling. The lower extremity Doppler showed bilateral acute on chronic DVTs. Patient also had possible pulmonary embolism. Patient is mostly sedentary. Patient can use to smoke about one pack of cigarettes per day used to smoke about 3 packs a day. Patient initially wanted to go home and is insisting on going home but family is requesting social work consult and physical therapy occupational therapy evaluation as patient doesn't take care of himself and the hasn't been much functional lately. Patient is still wheezing on exam saturated well on 2 L but desaturates upon ambulation to 89% without oxygen. Patient is on oral prednisone and inhalational treatments at this time. 06/12/2021 Patient is evaluated today at the bedside, he still has a complaint of shortness of breath and nonproductive cough. However he denies chest pain. Patient reports to smoking one pack of cigarettes a day, patient has requested a nicotine patch to which one has been ordered. Patient is wheezy, receiving breathing treatments. Echocardiogram which revealed an ejection fraction of 25- 30%, mild pulmonary hypertension, mild mitral regurgitation, mild tricuspid regurgitation, mild concentric left ventricular hypertrophy. This x-ray revealed left lower lobe mild pneumonia similar compared to old, no heart failure seen. Patient's BNP on admission was 6120. Patient has been started on IV Lasix 40 mg IV twice a day, and cardiology consultation is in place for new onset congestive heart failure. Previous echo for comparison was a MICHELLE that was completed in December 2016, that revealed a normal size wall motion and systolic function of the left ventricle. Patient was seen in consult by pulmonary services who recommended continuing heparin drip for the next 24-48 hours at that time patient may be transitioned to an oral anticoagulation. Pulmonary services has started patient on IV Rocephin for pneumonia. Patient is on oral steroid daily. Patient was seen in consultation by surgical services in follow- up for the chest CTA. CT revealed an elongated filling defect in the right pulmonary artery questioning and chronic thrombus versus possible tumor. Surgical services is recommending any intervention at this time, and would like a follow-up from pulmonary services regarding the location of this tumor versus chronic thrombus. There is no evidence of right heart strain on imaging or lab values. Lower extremity venous Doppler revealed acute on chronic DVT in bilateral legs to which patient has maintained on an IV heparin infusion. Patient is encouraged to use incentive spirometer. Vital signs are stable, and patient is maintaining oxygen saturation 97% on room air. Leukocytosis is improving patient will remain on IV antibiotics. Cardiac enzymes are negative 3. 06/13/2021 Patient is evaluated sitting up at the bedside today. Patient states that insurance of breath is improving, patient is still reporting cough. Patient denies chest pain. Patient was transitioned to eliquis for DVT prophylaxis. Cardiology has transitioned the patient from IV Lasix to oral Lasix today. They have also added Coreg and lisinopril. She is following closely along with this patient. Patient is doing well with his nicotine patch, encourage incentive spirometry. Patient is uncertain IV antibiotics for possible pneumonia from pulmonary services. Patient today is requesting a medication for an essential tremor. In the past patient has been trialed on primidone, patient stated that he did not have much luck with this. Continue to encourage ambulation, patient would benefit from a PT/ OT consultation for discharge planning. Per RN patient states that he will not go to rehab at this time. Patient remains afebrile, heart rate sinus rhythm in 70s, patient is 100% on 2 L nasal cannula, continue to wean oxygen as tolerated. Patient's blood pressure is 146/80 today. 06/14/2021 Patient is evaluated sitting up at the bedside today. Patient states that his shortness of breath is improving, patient reports cough, denies chest pain. Patient continues on eliquis, Coreg, lisinopril. Patient continues on a nicotine patch, encourage incentive spirometry. PT OT consultation recommends home with home care. Patient continues on IV antibiotics per pulmonary recommendations. Patient denies using oxygen at home at this time. He states that he has used oxygen at home when the past. Patient states that he did not really need it anymore. 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 Patient will need a home oxygen evaluation the day of discharge. Patient has been cleared from the cardiology unit and can be transferred to the medical surgical floor. Vital signs are stable today, patient remains afebrile. Patient is able to ablate without difficulty. 06/15/2021 Patient was started on oral antibiotics, oral steroids this hospitalization for a possible pneumonia, being followed closely by pulmonary services. In addition patient was started on eliquis by mouth twice a day for an acute on chronic PE, and acute on chronic DVT. Patient Has Been Wearing 2-3 L Nasal Cannula and Has Been Oxygen Saturation of 98-100%. Patient was set for discharge today to go home with PT, follow-up with cardiology, follow-up with pulmonary services. However upon completing a walking pulse ox test with nursing services, patient was found to be 76% on room air. In addition patient only improved to 81% on 6 L nasal cannula. Patient will continue antibiotics, steroids, oxygen therapy, breathing treatments. Input further recommendations from pulmonary services. Patient is evaluated in the bedside today, patient does have an expiratory wheeze, much improved from previous. Patient denies any shortness of breath at rest. Patient states a mild intermittent dry cough. Patient denies any sputum production. He continues to deny chest pain, reports improvement in his lower extremity swelling. Patient states that he is eating well. Continue all current medications at this time. Continue to monitor patient closely, encourage incentive spirometry, increase activity level. ROS: Constitutional: Denied any fatigue denied any fever. Cardio vascular: denied any chest pain, palpitations, reports mild LE edema Gastrointestinal denied any nausea vomiting Pulmonary: Reports SOB with activity, Reports nonproductive cough Neurologic denied any new focal deficits All inpatient medications were reviewed and appropriate changes in these medications as dictated in the interval history and assessment and plan. PHYSICAL EXAMINATION: GENERAL: The patient is alert and oriented x3, not in any acute distress. Well developed, well nourished. HEENT: Pupils are round and equally reacting to light. EOMI. No scleral icterus. No conjunctival pallor. Normocephalic, atraumatic. No pharyngeal erythema. No thyromegaly. CARDIOVASCULAR: S1 and S2 present. No murmurs, rubs, or gallops. PULMONARY: Bilateral posterior upper and lower lobes are rhonchorous, coarse wheezing ABDOMEN: Soft, nontender, nondistended, normoactive bowel sounds. No palpable organomegaly. MUSCULOSKELETAL: No joint swelling or deformity. EXTREMITIES: No cyanosis, clubbing, mild +1 ankle edema NEUROLOGICAL: Gross neurological examination did not reveal any focal deficits. SKIN: No rashes. Assessment and plan -Acute hypoxic and hypercapnic respiratory failure secondary to COPD e xacerbation as well as possible pulmonary embolism. Patient has been transitioned to Eliquis. -Patient's bilateral lower extremity DVT is secondary to his sedentary lifestyle, patient is on eliquis -COPD with acute exacerbation nicotine cessation counseling was provided patient was started on prednisone patient will be continued on inhalational treatments. -Coronary artery disease with history of CABG in the past -hyperlipidemia continue on Lipitor - hypertension - patient started on Coreg and lisinopril per cardiology services -New onset acute congestive heart failure, systolic - current ejection fraction 25-30%. Patient has been transitioned to PO lasix -Pulmonary embolism versus tumor, this is an acute on chronic PE per pulmonary services Leukocytosis, related to pneumonia, improving down to 13.7. Patient has been started on IV antibiotics. Lactic acid normal at 1.3 on admission. Blood cultures negative 2. Possible Left lower lobe pneumonia, present on admission, pulmonary service is following. Patient started on IV Rocephin. -Nicotine dependence, patient has been started on a nicotine patch. DVT prophylaxis: Eliquis Patient started on all Eliquis for DVT PE protocol. Appreciate cardiology consultation, patient has been transitioned to by mouth Lasix, patient has been started on Coreg and lisinopril. Patient will be followed along closely. Repeat lites in the morning. Patient is being followed closely pulmonary services, patient was started on IV antibiotics for a possible pneumonia, Continue on oral steroids, continue on breathing treatments. Patient was transitioned to oral antibiotics. Continue with nicotine patch. Continue to encourage ambulation, and continue incentive spirometer. PT OT recommended home with home care services on discharge, patient will need a home oxygen prior to discharge from the hospital. Reevaluate on the day of discharge. Patient can be transferred to the medical surgical unit. Objective - Vital Signs Vital signs: Vital Signs Temp 97.6 F 06/15/21 12:00 Pulse 42 L 06/15/21 12:00 Resp 18 06/15/21 12:00 BP 141/85 06/15/21 12:00 Pulse Ox 95 06/15/21 12:00 Intake & Output 06/14/21 06/15/21 06/15/21 18:59 06:59 18:59 Intake Total 358 500 Output Total 525 300 Balance -167 200 Weight 71.2 kg Intake: Oral 358 500 Output: Urine 525 300 Other: Voiding Method Urinal Urinal Urinal # Voids 1 1 # Bowel Movements 0 - Labs CBC & Chem 7: 06/15/21 08:53 06/14/21 07:41 Labs: Abnormal Lab Results - Last 24 Hours (Table) 06/14/21 06/15/21 06/15/21 Range/Units 16:47 06:17 08:53 Plt Count 146 L (150-450) k/uL POC Glucose (mg/dL) 126 H 150 H (75-99) mg/dL Microbiology - Last 24 Hours (Table) 06/10/21 23:20 Blood Culture - Preliminary Blood No Growth after 96 hours 06/10/21 23:01 Blood Culture - Preliminary Blood No Growth after 96 hours Assessment and Plan Time with Patient: Greater than 30
--- NOTE | 2021-06-15 13:35 | P.PN ---
Subjective Progress Note Date: 06/15/21 HISTORY OF PRESENT ILLNESS: This is a 70-year-old male with a past medical history significant for COPD, coronary artery disease with previous CABG, hypertension, and hyperlipidemia. Patient used to follow in the office with Dr. North but has not been seen since 2018. We have been asked to see the patient in consultation for congestive heart failure. Patient examined at the bedside. Patient is admitted to the hospital secondary to COPD exacerbation. Patient was also found to have pulmonary embolism. He has been started on Eliquis. Patient currently reports shortness of breath. He denies chest pain or pressure. Echocardiogram completed revealing ejection fraction 25-30%. Mild mitral regurgitation. Mild tricuspid regurgitation. Mild pulmonary hypertension. Patient did have a previous echocardiogram completed in 2017 revealing ejection fraction 40-45%. EKG reveals sinus mechanism with nonspecific ST-T wave changes Chest xray left lower lobe mild pneumonia that is similar to old exam. Inspiration slightly improved compared to old exam. No heart failure seen. Chest CTA: Elongated filling defect in the anterior wall of the right pulmonary artery. This could be chronic thrombus. Tumor not excluded. Doppler of lower extremities: Right leg internal echoes seen within the CFV down to the popliteal vein. Proximal veins not well seen. Took a flow seen throughout veins imaged. Compressions not performed due to above the knee due to internal echoes seen. Left leg trickle flow seen from mid femoral vein down through popliteal vein. Possible chronic internal echoes within these vein segments. Vein images appear to compress incompletely. Laboratory data: WBC 13.7. Hemoglobin 16.1. Pelvic, 186. Sodium 137. Potassium 4.1. BUN 37. Creatinine 1.42. BNP 6120. 06/14/2021 Patient examined this morning at the bedside. Patient denies chest pain or pressure. He denies shortness of breath. He remains on anti-correlation with Eliquis. Vital signs are stable. 06/15/2021 Patient examined this morning at the bedside. Patient denies chest pain or pressure. He denies shortness of breath. He remains anticoagulated with Eliquis. Vital signs are stable. Patient's blood pressures have been borderline. PHYSICAL EXAM: VITAL SIGNS: Reviewed. GENERAL: Well-developed in no acute distress. HEENT: Head is normocephalic. Pupils are equal, round. Sclerae anicteric. Mucous membranes of the mouth are moist. Neck supple. No JVD or thyromegaly LUNGS: Respirations even and unlabored. Lungs diminished bilaterally to auscultation. HEART: Regular rate and rhythm. S1 and S2 heard. ABDOMEN: Soft. Nondistended. Nontender. EXTREMITIES: Normal range of motion. No clubbing or cyanosis. Peripheral pul ses intact. Trace lower extremity edema NEUROLOGIC: Awake and alert. Oriented x 3. ASSESSMENT: Left lower lobe pneumonia Acute on chronic PE Acute on chronic DVT Acute COPD exacerbation Coronary artery disease with previous CABG Hypertension Hyperlipidemia Known ischemic cardiomyopathy Possible acute systolic heart failure, currently euvolemic PLAN: Continue telemetry monitoring Discontinue Coreg. Begin metoprolol tartrate 12.5 mg twice a day Continue additional cardiac medications Further recommendations pending patient course Nurse practitioner note has been reviewed by physician. Signing provider agrees with the documented findings, assessment, and plan of care. Objective - Vital Signs Vital signs: Vital Signs Temp 97.6 F 06/15/21 12:00 Pulse 42 L 06/15/21 12:00 Resp 18 06/15/21 12:00 BP 141/85 06/15/21 12:00 Pulse Ox 95 06/15/21 12:00 Intake & Output 06/14/21 06/15/21 06/15/21 18:59 06:59 18:59 Intake Total 358 500 Output Total 525 300 Balance -167 200 Weight 71.2 kg Intake: Oral 358 500 Output: Urine 525 300 Other: Voiding Method Urinal Urinal Urinal # Voids 1 1 # Bowel Movements 0 - Labs CBC & Chem 7: 06/15/21 08:53 06/14/21 07:41 Labs: Abnormal Lab Results - Last 24 Hours (Table) 06/14/21 06/15/21 06/15/21 Range/Units 16:47 06:17 08:53 Plt Count 146 L (150-450) k/uL POC Glucose (mg/dL) 126 H 150 H (75-99) mg/dL Microbiology - Last 24 Hours (Table) 06/10/21 23:20 Blood Culture - Preliminary Blood No Growth after 96 hours 06/10/21 23:01 Blood Culture - Preliminary Blood No Growth after 96 hours
--- NOTE | 2021-06-15 16:26 | P.PN ---
Subjective Progress Note Date: 06/15/21 Principal diagnosis: Left lower lobe pneumonia Acute on chronic pulmonary embolism with Acute on chronic DVT End-stage lung disease secondary due to 2 severe COPD emphysema Acute on chronic hypoxic respiratory failure 06/15/2021, patient seen eval examined oxygen saturation at rest is 95% however did drop down into mid 80s requiring 4-6 L nasal cannula, patient remains on d irect oral anticoagulant for pulmonary embolism as well as antibiotics for pneumonia, shortness of breath cough congestion significantly improved 06/14/2021, patient remains on 3 L oxygen ongoing shortness of breath the severity of cough congestion has improved however, patient remains on broad-spe ctrum antibiotics, blood cultures have been negative so far, Patient is a 70-year-old male presented emergency department with increasing reading difficulty for 3-4 day duration, denies any chest pain intermittent cough nonproductive, patient has a baseline extensive history of COPD, chest x- ray significant for left lower lobe pneumonia, computed tomography scan of the chest positive for a filling defect in the right pulmonary vasculature appeared to be thrombus, ultrasound of the lower extremity positive for chronic and acute DVT, currently patient is being treated with bronchodilator gentle diuresis heparin drip as per protocol and continuation of his medications, and prednisone, white cell count arrival were noted to be 19,000. Down to 13,000 now Objective - Vital Signs Vital signs: Vital Signs Temp 98.1 F 06/15/21 15:47 Pulse 37 L 06/15/21 15:47 Resp 18 06/15/21 15:47 BP 154/71 06/15/21 15:47 Pulse Ox 92 L 06/15/21 15:47 Intake & Output 06/14/21 06/15/21 06/15/21 18:59 06:59 18:59 Intake Total 358 1000 Output Total 525 1300 Balance -167 -300 Weight 71.2 kg Intake: Oral 358 1000 Output: Urine 525 1300 Other: Voiding Method Urinal Urinal Urinal # Voids 1 6 # Bowel Movements 0 - Exam - Constitutional General appearance: average body habitus, cooperative, disheveled - EENT Eyes: EOMI, PERRLA Ears: bilateral: normal - Neck Neck: normal ROM Carotids: bilateral: upstroke normal Thyroid: bilateral: normal size - Respiratory Respiratory: bilateral: diminished - Cardiovascular Rhythm: regular Heart sounds: normal: S1, S2 - Gastrointestinal General gastrointestinal: soft - Integumentary Integumentary: normal turgor - Neurologic Neurologic: CNII-XII intact - Musculoskeletal Musculoskeletal: gait normal, generalized weakness, strength equal bilaterally - Psychiatric Psychiatric: A&O x's 3, appropriate affect, intact judgment & insight - Labs CBC & Chem 7: 06/15/21 08:53 06/14/21 07:41 Labs: Abnormal Lab Results - Last 24 Hours (Table) 06/14/21 06/15/21 06/15/21 Range/Units 16:47 06:17 08:53 Plt Count 146 L (150-450) k/uL POC Glucose (mg/dL) 126 H 150 H (75-99) mg/dL Microbiology - Last 24 Hours (Table) 06/10/21 23:20 Blood Culture - Preliminary Blood No Growth after 96 hours 06/10/21 23:01 Blood Culture - Preliminary Blood No Growth after 96 hours Assessment and Plan Assessment: Acute on chronic hypoxic history failure Left lower lobe pneumonia Acute on chronic pulmonary embolism with Acute on chronic DVT End-stage lung disease secondary due to 2 severe COPD emphysema Plan: Continue oral direct anticoagulant Congestive broad-spectrum antibiotics assessment for home oxygen in progress Continuation of home medications Patient will likely need home oxygen Time with Patient: Greater than 30
[2021-06-15 17:03] LABS: Glucose,Whole Blood 126 mg/dL (75-99)
[2021-06-15 20:09] LABS: Glucose,Whole Blood 127 mg/dL (75-99)
[2021-06-15] MEDS: MONTELUKAST 10 MG TAB PO SCH (20:38)
[2021-06-15] MEDS: ALPRAZolam 0.25 MG TAB PO PRN (20:43)
[2021-06-16 06:16] LABS: Glucose,Whole Blood 89 mg/dL (75-99)
[2021-06-16] MEDS: INSULIN ASPART (NovoLOG) 100 UNIT/ML VIAL SQ SCH ×2 (06:52→13:01)
[2021-06-16] MEDS: IPRATROPIUM-ALBUTEROL 3 ML NEB INHALATION SCH ×3 (07:34→15:18)
[2021-06-16] MEDS: METOPROLOL TARTRATE 12.5 MG TAB PO SCH (08:34)
[2021-06-16] MEDS: GABAPENTIN 100 MG CAP PO SCH (08:35)
[2021-06-16] MEDS: CEFDINIR 300 MG CAP PO SCH (08:35)
[2021-06-16] MEDS: NICOTINE 14MG/24HR PATCH TRANSDERM SCH (08:35)
[2021-06-16] MEDS: FUROSEMIDE 40 MG TAB PO SCH (08:35)
[2021-06-16] MEDS: APIXABAN 5 MG TAB PO SCH (08:35)
[2021-06-16] MEDS: predniSONE 20 MG TAB PO SCH (08:35)
--- NOTE | 2021-06-16 08:36 | P.PN ---
Subjective Progress Note Date: 06/16/21 Principal diagnosis: Left lower lobe pneumonia Acute on chronic pulmonary embolism with Acute on chronic DVT End-stage lung disease secondary due to 2 severe COPD emphysema Acute on chronic hypoxic respiratory failure 06/16/2021, patient seen eval examined during the rounds, resting on 2 L oxygen, oxygen saturation pending post exertion 06/15/2021, patient seen eval examined oxygen saturation at rest is 95% however did drop down into mid 80s requiring 4-6 L nasal cannula, patient remains on direct oral anticoagulant for pulmonary embolism as well as antibiotics for pne umonia, shortness of breath cough congestion significantly improved 06/14/2021, patient remains on 3 L oxygen ongoing shortness of breath the severity of cough congestion has improved however, patient remains on broad- spectrum antibiotics, blood cultures have been negative so far, Patient is a 70-year-old male presented emergency department with increasing reading difficulty for 3-4 day duration, denies any chest pain intermittent cough nonproductive, patient has a baseline extensive history of COPD, chest x- ray significant for left lower lobe pneumonia, computed tomography scan of the chest positive for a filling defect in the right pulmonary vasculature appeared to be thrombus, ultrasound of the lower extremity positive for chronic and acute DVT, currently patient is being treated with bronchodilator gentle diuresis heparin drip as per protocol and continuation of his medications, and prednisone, white cell count arrival were noted to be 19,000. Down to 13,000 now Objective - Vital Signs Vital signs: Vital Signs Temp 98 F 06/16/21 04:05 Pulse 66 06/16/21 07:25 Resp 16 06/16/21 04:05 BP 124/64 06/16/21 04:05 Pulse Ox 95 06/16/21 04:05 Intake & Output 06/15/21 06/16/21 06/16/21 18:59 06:59 18:59 Intake Total 1500 Output Total 1300 700 Balance 200 -700 Weight 70 kg Intake: Oral 1500 Output: Urine 1300 700 Other: Voiding Method Urinal Urinal # Voids 6 # Bowel Movements 0 - Exam - Constitutional General appearance: average body habitus, cooperative, disheveled - EENT Eyes: EOMI, PERRLA Ears: bilateral: normal - Neck Neck: normal ROM Carotids: bilateral: upstroke normal Thyroid: bilateral: normal size - Respiratory Respiratory: bilateral: diminished - Cardiovascular Rhythm: regular Heart sounds: normal: S1, S2 - Gastrointestinal General gastrointestinal: soft - Integumentary Integumentary: normal turgor - Neurologic Neurologic: CNII-XII intact - Musculoskeletal Musculoskeletal: gait normal, generalized weakness, strength equal bilaterally - Psychiatric Psychiatric: A&O x's 3, appropriate affect, intact judgment & insight - Labs CBC & Chem 7: 06/15/21 08:53 06/14/21 07:41 Labs: Abnormal Lab Results - Last 24 Hours (Table) 06/15/21 06/15/21 06/15/21 Range/Units 08:53 16:58 20:08 Plt Count 146 L (150-450) k/uL POC Glucose (mg/dL) 126 H 127 H (75-99) mg/dL Microbiology - Last 24 Hours (Table) 06/10/21 23:01 Blood Culture - Preliminary Blood No Growth after 120 hours 06/10/21 23:20 Blood Culture - Preliminary Blood No Growth after 120 hours Assessment and Plan Assessment: Acute on chronic hypoxic history failure Left lower lobe pneumonia Acute on chronic pulmonary embolism with Acute on chronic DVT End-stage lung disease secondary due to 2 severe COPD emphysema Plan: Continue oral direct anticoagulant Congestive broad-spectrum antibiotics assessment for home oxygen in progress Continuation of home medications Patient will likely need home oxygen Time with Patient: Greater than 30
[2021-06-16] MEDS: ALPRAZolam 0.25 MG TAB PO PRN (08:40)
[2021-06-16 09:47] VITALS: RESP 18; TEMP 97.7
[2021-06-16 11:54] LABS: Glucose,Whole Blood 99 mg/dL (75-99)
--- NOTE | 2021-06-16 12:47 | P.PN ---
Subjective Progress Note Date: 06/16/21 HISTORY OF PRESENT ILLNESS: This is a 70-year-old male with a past medical history significant for COPD, coronary artery disease with previous CABG, hypertension, and hyperlipidemia. Patient used to follow in the office with Dr. North but has not been seen since 2018. We have been asked to see the patient in consultation for congestive heart failure. Patient examined at the bedside. Patient is admitted to the hospital secondary to COPD exacerbation. Patient was also found to have pulmonary embolism. He has been started on Eliquis. Patient currently reports shortness of breath. He denies chest pain or pressure. Echocardiogram completed revealing ejection fraction 25-30%. Mild mitral regurgitation. Mild tricuspid regurgitation. Mild pulmonary hypertension. Patient did have a previous echocardiogram completed in 2017 revealing ejection fraction 40-45%. EKG reveals sinus mechanism with nonspecific ST-T wave changes Chest xray left lower lobe mild pneumonia that is similar to old exam. Inspiration slightly improved compared to old exam. No heart failure seen. Chest CTA: Elongated filling defect in the anterior wall of the right pulmonary artery. This could be chronic thrombus. Tumor not excluded. Doppler of lower extremities: Right leg internal echoes seen within the CFV down to the popliteal vein. Proximal veins not well seen. Took a flow seen throughout veins imaged. Compressions not performed due to above the knee due to internal echoes seen. Left leg trickle flow seen from mid femoral vein down through popliteal vein. Possible chronic internal echoes within these vein segments. Vein images appear to compress incompletely. Laboratory data: WBC 13.7. Hemoglobin 16.1. Pelvic, 186. Sodium 137. Potassium 4.1. BUN 37. Creatinine 1.42. BNP 6120. 06/14/2021 Patient examined this morning at the bedside. Patient denies chest pain or pressure. He denies shortness of breath. He remains on anti-correlation with Eliquis. Vital signs are stable. 06/15/2021 Patient examined this morning at the bedside. Patient denies chest pain or pressure. He denies shortness of breath. He remains anticoagulated with Eliquis. Vital signs are stable. Patient's blood pressures have been borderline. 06/16/2021 Patient examined this morning at the bedside. Patient denies chest pain or pressure. He denies shortness of breath. He remains anticoagulated with Eliquis. Vital signs are stable. Blood pressure 135/75. Heart rate is in the 70s. He is afebrile. He is on 2 L nasal cannula with oxygen saturation greater than 92% PHYSICAL EXAM: VITAL SIGNS: Reviewed. GENERAL: Well-developed in no acute distress. HEENT: Head is normocephalic. Pupils are equal, round. Sclerae anicteric. Mucous membranes of the mouth are moist. Neck supple. No JVD or thyromegaly LUNGS: Respirations even and unlabored. Lungs diminished bilaterally to auscultation. HEART: Regular rate and rhythm. S1 and S2 heard. ABDOMEN: Soft. Nondistended. Nontender. EXTREMITIES: Normal range of motion. No clubbing or cyanosis. Peripheral pulses intact. Trace lower extremity edema NEUROLOGIC: Awake and alert. Oriented x 3. ASSESSMENT: Left lower lobe pneumonia Acute on chronic PE Acute on chronic DVT Acute COPD exacerbation Coronary artery disease with previous CABG Hypertension Hyperlipidemia Known ischemic cardiomyopathy Possible acute systolic heart failure, currently euvolemic PLAN: Continue current cardiac medications Patient is stable from a cardiac perspective No further inpatient cardiac recommendations We will sign off. Please reconsult if needed Nurse practitioner note has been reviewed by physician. Signing provider agrees with the documented findings, assessment, and plan of care. Objective - Vital Signs Vital signs: Vital Signs Temp 97.7 F 06/16/21 08:00 Pulse 64 06/16/21 11:33 Resp 18 06/16/21 08:00 BP 135/75 06/16/21 08:00 Pulse Ox 94 L 06/16/21 08:00 Intake & Output 06/15/21 06/16/21 06/16/21 18:59 06:59 18:59 Intake Total 1500 240 Output Total 1300 700 375 Balance 200 -700 -135 Weight 70 kg Intake: Oral 1500 240 Output: Urine 1300 700 375 Other: Voiding Method Urinal Urinal # Voids 6 # Bowel Movements 0 - Labs CBC & Chem 7: 06/15/21 08:53 06/14/21 07:41 Labs: Abnormal Lab Results - Last 24 Hours (Table) 06/15/21 06/15/21 Range/Units 16:58 20:08 POC Glucose (mg/dL) 126 H 127 H (75-99) mg/dL Microbiology - Last 24 Hours (Table) 06/10/21 23:01 Blood Culture - Preliminary Blood No Growth after 120 hours 06/10/21 23:20 Blood Culture - Preliminary Blood No Growth after 120 hours
--- NOTE | 2021-06-16 12:57 | P.DS ---
Providers Date of admission: 06/11/21 00:37 Attending physician: Vilma Ellis Consults: 06/11/21 20:05 Consult Physician Routine Consulting Provider: Ezequiel Bhatia Consult Reason/Comments: dyspnea, DVT Do you want consulting provider notified?: Yes Primary care physician: Donita Darden Hospital Course: Final diagnoses -Acute hypoxic and hypercapnic respiratory failure secondary to COPD exacerbation as well as possible pulmonary embolism. Patient has been transitioned to Eliquis. -Patient's bilateral lower extremity DVT is secondary to his sedentary lifestyle, patient is on eliquis -COPD with acute exacerbation nicotine cessation counseling was provided patient was started on prednisone patient will be continued on inhalational treatments. -Coronary artery disease with history of CABG in the past -hyperlipidemia continue on Lipitor - hypertension - patient on metoprolol and lisinopril per cardiology services -New onset acute congestive heart failure, systolic - current ejection fraction 25-30%. Patient has been transitioned to PO lasix -Pulmonary embolism versus tumor, this is an acute on chronic PE per pulmonary services Leukocytosis, related to pneumonia, improving down to 13.7. Patient has been started on IV antibiotics. Lactic acid normal at 1.3 on admission. Blood cultures negative 2. Patient discharged home on oral antibiotics Possible Left lower lobe pneumonia, present on admission, pulmonary service is following. Incentive spirometry, antibiotics -Nicotine dependence, patient has been started on a nicotine patch. Discharge disposition Patient is discharged home with home healthcare services, physical therapy. Patient was evaluated by physical therapy, no recommendations for subacute rehab at this time. Patient is alert and oriented 3. Reinforcement will need to be continued from family and home care services for smoking cessation regarding the discharge on nasal cannula. Patient is counseled extensively on smoking cessation. Patient understands the risks of continuing to smoke and vape while using oxygen. Patient states that he would like to ultimately quit smoking however states that this may be hard for him. Patient was sent home on a chani emelia patch, patient can discuss with his PCP about further medications to help with smoking cessation. Patient will follow-up with cardiology, pulmonary, primary care services. Patient will be discharged on a steroid taper, finish course of oral antibiotics. In addition patient is discharged on eliquis for VTE protocol. Hospital course This is a 70-year-old male who came into the ER with complaints of shortness of breath, admitted with COPD exacerbation. In addition patient has been complaining of bilateral lower extremity swelling. Lower x-ray Doppler revealed bilateral acute on chronic DVTs. In addition patient also had a possible pulmonary embolism, patient continues to smoke one pack of cigarettes per day however he used to smoke 3 packs per day. Patient desats on ambulation to 89% without oxygen, has maintained on 2-3 L of oxygen his hospital stay. Patient takes oral prednisone, and breathing treatments at home. Patient states that he does not follow with a lung doctor. Patient was started this admission on Eliquis for acute on chronic DVT and PE. Patient in addition was evaluated by cardiology services, for a new onset acute congestive heart failure, systolic. Patient's ejection fraction was 25-30% this admission. Patient's echo from 2017 revealed an ejection fraction of 40-45%. Patient was also started on lisinopril, metoprolol will continue on baby aspirin. Patient was started on oral Lasix and will be discharged on this with a repeat electrolyte panel in 2 days. Patient will need to follow up with cardiology outpatient. Patient was evaluated by Dr. Bhatia for pulmonary services for an acute thrombus versus tumor. Dr. Bhatia treated patient for an acute on chronic PE, patient is discharged on Eliquis. In addition Dr. Bhatia treated patient for suspicious pneumonia with IV Rocephin. Patient was transitioned to oral Omnicef on discharge. Patient will follow-up with pulmonary services. Patient will continue on his home inhaler, nebulizers, as well as a steroid taper. Patient was evaluated for home oxygen and this admission patient was found to be 76% on room air. Patient be discharged on oxygen via nasal cannula and prescription was sent to case management. Patient needs strong reinforcement regarding smoking cessation due to the need for oxygen via nasal cannula on discharge. Patient will need to continue using his incentive spirometry on discharge. Patient also complained of a mild tremor this admission he states that this has been going on for about 5 years. Patient states that in the past he was trialed on primidone however he states that it did not work for his tremors. Patient was started on gabapentin this admission for an essential tremor. Patient was discharged on a small dose, and patient can follow up with his primary care provider if this is to be continued. 06/16/2021 Patient states that he is still short of breath with activity, reports a cough that is improving. He reports minimal sputum production. He had a home oxygenation test yesterday prior to a pending discharge, that revealed saturation of 73% on room air while ambulating, patient was unable to oxygenate, he only came up to 81% on 6 L. Patient was encouraged to use incentive spirometer, dyspnea has improved today. Patient has been primarily sitting up on the side of the bed since then. He states that he did take a shower this morning, and had some shortness of breath. Patient previously had a history of oxygen use at home, follows with JEFF Weiner in the office. Patient has a history of end-stage lung disease due to COPD, emphysema, patient was not maintained in any maintenance medications for his COPD prior to admission. Patient continues on by mouth antibiotics, by mouth steroids, by mouth Lasix. Patient is pending discharge home with home care, with home oxygen. Patient continues to be alert oriented, denies chest pain, reports some exertional dyspnea that is chronic in nature. Patient denies any abdominal pain, reports fair appetite. Extensive conversation was had at bedside with patient regarding his prognosis, end-stage COPD, need for vaping and smoking cessation. Patient will be discharged home on nicotine patch, follow the taper with further recommendations from PCP. Patient Condition at Discharge: Fair Plan - Discharge Summary Discharge Rx Participant: No New Discharge Prescriptions: New methylPREDNISolone Dose Pack [Medrol Dose Pack] 4 mg PO DIRECTED #21 package Gabapentin [Neurontin] 200 mg PO BID #12 cap lisinopriL [Zestril] 2.5 mg PO DAILY #30 tab Apixaban [Eliquis] 5 mg PO BID #60 tab Aspirin 81 mg PO DAILY #30 chew Furosemide [Lasix] 40 mg PO DAILY #30 tab Metoprolol Tartrate [Lopressor] 12.5 mg PO BID #60 tab Cefdinir [Omnicef] 300 mg PO BID #6 cap Apixaban [Eliquis] 10 mg PO BID 4 Days #8 tablet Nicotine 21Mg/24Hr Patch [Habitrol] 1 each TRANSDERM DAILY #15 patch Continue Ipratropium-Albuterol Nebulize [Duoneb 0.5 mg-3 mg/3 ml Soln] 3 ml INHALATION RT-Q6H PRN PRN Reason: Shortness Of Breath Aspirin EC [Ecotrin Low Dose] 81 mg PO DAILY Albuterol Sulfate [Proair Hfa] 1 - 2 puff INHALATION Q4H PRN #1 inhaler PRN Reason: Shortness Of Breath Montelukast Sodium [Singulair] 10 mg PO HS Atorvastatin Calcium [Lipitor] 80 mg PO DAILY Discontinued lisinopriL 20 mg PO DAILY Discharge Medication List Ipratropium-Albuterol Nebulize [Duoneb 0.5 mg-3 mg/3 ml Soln] 3 ml INHALATION RT-Q6H PRN 11/03/17 [History] Aspirin EC [Ecotrin Low Dose] 81 mg PO DAILY 01/20/18 [History] Albuterol Sulfate [Proair Hfa] 1 - 2 puff INHALATION Q4H PRN #1 inhaler 02/21/18 [Rx] Atorvastatin Calcium [Lipitor] 80 mg PO DAILY 06/10/21 [History] Montelukast Sodium [Singulair] 10 mg PO HS 06/10/21 [History] Apixaban [Eliquis] 5 mg PO BID #60 tab 06/15/21 [Rx] Apixaban [Eliquis] 10 mg PO BID 4 Days #8 tablet 06/15/21 [Rx] Aspirin 81 mg PO DAILY #30 chew 06/15/21 [Rx] Cefdinir [Omnicef] 300 mg PO BID #6 cap 06/15/21 [Rx] Furosemide [Lasix] 40 mg PO DAILY #30 tab 06/15/21 [Rx] Gabapentin [Neurontin] 200 mg PO BID #12 cap 06/15/21 [Rx] Metoprolol Tartrate [Lopressor] 12.5 mg PO BID #60 tab 06/15/21 [Rx] lisinopriL [Zestril] 2.5 mg PO DAILY #30 tab 06/15/21 [Rx] methylPREDNISolone Dose Pack [Medrol Dose Pack] 4 mg PO DIRECTED #21 package 06/15/21 [Rx] Nicotine 21Mg/24Hr Patch [Habitrol] 1 each TRANSDERM DAILY #15 patch 06/16/21 [Rx] Follow up Appointment(s)/Referral(s): Ezequiel Bhatia MD [STAFF PHYSICIAN] - 1 Week Nannette North MD [STAFF PHYSICIAN] - 1 Week Nishant Forbes DO [Doctor of Osteopathic Medicine] - 3 Days [facility] Visiting Nurse, [NON-STAFF] - Ambulatory/Diagnostic Orders: Basic Metabolic Panel [LAB.AMB] Time Frame: 2 Days, Location: None Selected Activity/Diet/Wound Care/Special Instructions: Patient is covered for Eliquis with his Medicaid Patient will only need 3 more days Eliquis 10 mg PO BID, then he may transition to 5 mg PO BID. Patient will be discharged home with home care and home physical therapy Patient will need a ambulating pulse ox test prior to discharge Patient will require home O2 at discharge, secondary to end-stage COPD emphysema. Discharge Disposition: HOME WITH HOME HEALTH SERVICES
[2021-06-16 13:14] VITALS: BP 117/87
[2021-06-16 14:14] VITALS: BMI 20.9
[2021-06-16 15:30] VITALS: PULSE 70
== END 2021-06-16 16:03 | disposition home health service (06) | DRG 175 ==
LOC: EC 20:35 → 3SCARD 06-11 00:37
PROVIDERS: ADMIT Hospitalist; ATTEND Hospitalist
DX: I26.99 Other pulmonary embolism without acute cor pulmonale (principal); I50.21 Acute systolic (congestive) heart failure; J18.9 Pneumonia, unspecified organism; J96.22 Acute and chronic respiratory failure with hypercapnia; J96.21 Acute and chronic respiratory failure with hypoxia; I82.503 Chronic embolism and thrombosis of unspecified deep veins of lower extremity, bilateral; J44.1 Chronic obstructive pulmonary disease with (acute) exacerbation; E78.5 Hyperlipidemia, unspecified; F17.210 Nicotine dependence, cigarettes, uncomplicated; G25.0 Essential tremor; I11.0 Hypertensive heart disease with heart failure; I25.10 Atherosclerotic heart disease of native coronary artery without angina pectoris; I25.2 Old myocardial infarction; I25.5 Ischemic cardiomyopathy; I27.20 Pulmonary hypertension, unspecified; F32.9 Major depressive disorder, single episode, unspecified; F41.9 Anxiety disorder, unspecified; K40.90 Unilateral inguinal hernia, without obstruction or gangrene, not specified as recurrent; M54.9 Dorsalgia, unspecified; Z95.1 Presence of aortocoronary bypass graft; Z79.899 Other long term (current) drug therapy; Z79.01 Long term (current) use of anticoagulants; Z79.82 Long term (current) use of aspirin
CPT/HCPCS: 36415; 71046; 71275; 80048; 80053; 83605; 83735; 83880; 84484; 85025; 85027; 85379; 85610; 85730; 87040; 93005; 93306; 93970; 94640; 94760

== ENCOUNTER 2021-08-19 04:36 | Inpatient (IN) | payer MEDICARE, OTHER ==
[2021-08-19] MEDS ORDERED: LORazepam 2 MG/ML INJ IV STA ×2 (05:06→07:22)
[2021-08-19] MEDS ORDERED: IPRATROPIUM-ALBUTEROL 3 ML NEB INHALATION STA (05:06)
--- NOTE | 2021-08-19 05:30 | XR ---
EXAMINATION TYPE: XR chest 1V DATE OF EXAM: 08/19/2021 COMPARISON: 06/10/2021 HISTORY: Difficulty breathing TECHNIQUE: Single view FINDINGS: Heart is enlarged. There is some interstitial infiltrate in the left lower lobe. There is n o heart failure. Thoracic aorta is atheromatous. There are sternal wires. There are chest leads. IMPRESSION: There is some chronic interstitial pneumonia left lower lobe which is slightly worse than last exam. No heart failure.
[2021-08-19 05:50] LABS: Basophils % (A) 0 %; Eosinophils % (A) 0 %; HCT 49.4 % (39.0-53.0); HGB 15.5 gm/dL (13.0-17.5); Lymphocytes # (A) 1.1 k/uL (1.0-4.8); Lymphocytes % (A) 6 %; MCH 30.4 pg (25.0-35.0); MCHC 31.4 g/dL (31.0-37.0); Mean Platelet Volume 8.7; Monocytes # (A) 0.7 k/uL (0-1.0); Monocytes % (A) 4 %; Neutrophils # (A) 16.6 k/uL (1.3-7.7); Neutrophils % (A) 90 %; Platelet Count 157 k/uL (150-450); RBC 5.09 m/uL (4.30-5.90); RDW 13.9 % (11.5-15.5); WBC 18.5 k/uL (3.8-10.6)
[2021-08-19 06:12] LABS: Albumin 4.2 g/dL (3.5-5.0); Calcium 9.4 mg/dL (8.4-10.2); Potassium 5.3 mmol/L (3.5-5.1); Total Bilirubin 0.7 mg/dL (0.2-1.3); Total Protein 6.7 g/dL (6.3-8.2)
[2021-08-19 06:15] LABS: Partial Thromboplastin Time 22.8 sec (22.0-30.0); Prothrombin Time 11.1 sec (9.0-12.0)
[2021-08-19] MEDS ORDERED: MORPHINE SULFATE 4 MG/ML SYRINGE IV STA (07:22)
[2021-08-19] MEDS ORDERED: HEPARIN SODIUM 1,000 UN/ML (10ML VL) IV PRN (08:07)
[2021-08-19] MEDS ORDERED: HEPARIN SODIUM 1,000 UN/ML (10ML VL) IV ONE (08:07)
--- NOTE | 2021-08-19 08:18 | CT ---
EXAMINATION TYPE: CT chest angio for PE DATE OF EXAM: 08/19/2021 COMPARISON: CT dated 06/10/2021 HISTORY: possible pe CT DLP: 475.4 mGycm Automated exposure control for dose reduction was used. CONTRAST: CT Chest for pulmonary embolism performed with with IV Contrast, patient injected with 80 mL of Isovu e 370. Three-dimensional reconstructions performed on an alternate workstation. FINDINGS: LUNGS: The lungs show extensive emphysematous change as described on prior report, there is no concer tea parenchymal mass or nodule identified. There is no pleural effusion or pneumothorax seen. The tracheobronchial tree is patent. MEDIASTINUM: There is satisfactory enhancement of the pulmonary artery and its branches, there is abn ormal low attenuation associated with the anterior wall the right pulmonary artery, overall measureme nt measures approximately 8 cm x 2.2 cm x 2.1 cm, there may be small focus of calcification present s uggesting chronicity. There are no greater than 1 cm hilar or mediastinal lymph nodes. No pericard ial effusion is seen. No evident intraventricular septal deviation. Patient is sternotomy. Heart is enlarged, there are coronary artery calcifications. AORTA: Root of the aorta measures approximately 4.1 cm. Ascending aorta measures approximately 3.8 c m, proximal descending aorta measures 3.1 cm. OTHER: There is some reflux of contrast material into the hepatic veins. Sternotomy appears somewhat irregular, there is motion and streak artifact similar to prior exam. IMPRESSION: Pulmonary embolus appears adherent to the wall in the right pulmonary artery extending into the right chest, findings are chronic, follow-up is suggested to assess for resolution, tumor not excluded as described on prior report. Reflux of contrast into the hepatic veins could be due to some right-sided heart strain although there does not appear to be significant interventricular septal deviation. Rep ort relayed to Dr. Jones telephonically at the time of interpretation. Aortic aneurysm.
[2021-08-19] MEDS ORDERED: NALOXONE 0.4 MG/ML 1 ML VIAL IV PRN (08:33)
[2021-08-19] MEDS ORDERED: ONDANSETRON 4 MG/2 ML VIAL IVP PRN (08:33)
[2021-08-19] MEDS ORDERED: MORPHINE SULFATE 4 MG/ML SYRINGE IV PRN (08:33)
[2021-08-19] MEDS ORDERED: ALBUTEROL HFA INHALER INHALATION PRN (08:37)
--- NOTE | 2021-08-19 08:42 | ED ---
SOB HPI - General Chief Complaint: Shortness of Breath Stated Complaint: SOB Time Seen by Provider: 08/19/21 05:02 Source: patient, EMS Mode of arrival: EMS Limitations: physical limitation - History of Present Illness Initial Comments: 's patient is 71-year-old man with history of COPD who presents with acute onset of shortness of breath. The patient states that he had been trying to sleep when he found that he was becoming very short of breath. He woke with feeling like he couldn't catch his breath. States he has had similar episodes that's he was told were anxiety attacks. He did not have any fever or chills. He does have chronic cough, nonproductive. He did not note any change in urination or bowel movements. No new leg pain or swelling, he states he does have a little bit of chronic edema. MD Complaint: shortness of breath -: minutes(s) Severity scale (1-10): 0 Consistency: constant Improves With: nothing Worsens With: nothing Known History Of: COPD, DVT Treatments Prior to Arrival: bronchodilator - Related Data Home Oxygen Therapy: No Home Medications Medication Instructions Recorded Confirmed Ipratropium-Albuterol Nebulize 3 ml INHALATION RT-Q6H PRN 11/03/17 06/10/21 [Duoneb 0.5 mg-3 mg/3 ml Soln] Aspirin EC [Ecotrin Low Dose] 81 mg PO DAILY 01/20/18 06/10/21 Atorvastatin Calcium [Lipitor] 80 mg PO DAILY 06/10/21 06/10/21 Montelukast Sodium [Singulair] 10 mg PO HS 06/10/21 06/10/21 Previous Rx's Medication Instructions Recorded Albuterol Sulfate [Proair Hfa] 1 - 2 puff INHALATION Q4H PRN #1 02/21/18 inhaler Apixaban [Eliquis] 5 mg PO BID #60 tab 06/15/21 Apixaban [Eliquis] 10 mg PO BID 4 Days #8 tablet 06/15/21 Aspirin 81 mg PO DAILY #30 chew 06/15/21 Cefdinir [Omnicef] 300 mg PO BID #6 cap 06/15/21 Furosemide [Lasix] 40 mg PO DAILY #30 tab 06/15/21 Gabapentin [Neurontin] 200 mg PO BID #12 cap 06/15/21 Metoprolol Tartrate [Lopressor] 12.5 mg PO BID #60 tab 06/15/21 lisinopriL [Zestril] 2.5 mg PO DAILY #30 tab 06/15/21 methylPREDNISolone Dose Pack 4 mg PO DIRECTED #21 package 06/15/21 [Medrol Dose Pack] Nicotine 21Mg/24Hr Patch [Habitrol] 1 each TRANSDERM DAILY #15 patch 06/16/21 Allergies Allergy/AdvReac Type Severity Reaction Status Date / Time No Known Allergies Allergy Verified 08/19/21 04:39 Review of Systems ROS Statement: Those systems with pertinent positive or pertinent negative responses have been documented in the HPI. ROS Other: All systems not noted in ROS Statement are negative. Constitutional: Denies: fever, chills, weakness Respiratory: Reports: cough, dyspnea, wheezes. Denies: hemoptysis Cardiovascular: Reports: edema. Denies: chest pain, palpitations, orthopnea, syncope Gastrointestinal: Denies: abdominal pain, vomiting, diarrhea Genitourinary: Denies: dysuria, hematuria Musculoskeletal: Denies: back pain Skin: Denies: rash Neurological: Denies: headache, weakness, numbness Psychiatric: Reports: anxiety Past Medical History Past Medical History: Coronary Artery Disease (CAD), COPD, Hyperlipidemia, Hypertension, Myocardial Infarction ([place]), Pneumonia Additional Past Medical History / Comment(s): '"tremors", emphysema, back pain - pt stated that he was supposed to be getting a CT scan of his lower back over the next few days. Last Myocardial Infarction Date:: 12/2015 History of Any Multi-Drug Resistant Organisms: None Reported Past Surgical History: Coronary Bypass/CABG, Heart Catheterization, Hernia Repair, Tonsillectomy Additional Past Surgical History / Comment(s): rt inguinal hernia repair, 3 vessel cabg. carotid r side 03/24 Past Anesthesia/Blood Transfusion Reactions: No Reported Reaction Additional Past Anesthesia/Blood Transfusion Reaction / Comment(s): stated never had any blood transfusions Past Psychological History: Anxiety, Depression Smoking Status: Current every day smoker Past Alcohol Use History: None Reported Past Drug Use History: Marijuana - Past Family History Mother Family Medical History: CVA/TIA Father Additional Family Medical History / Comment(s): aaa repair General Exam Limitations: physical limitation General appearance: alert, in distress Head exam: Present: atraumatic, normocephalic Eye exam: Present: normal appearance. Absent: scleral icterus, conjunctival injection ENT exam: Present: normal oropharynx Neck exam: Present: normal inspection, full ROM Respiratory exam: Present: respiratory distress, wheezes. Absent: rales, rhonchi, stridor, accessory muscle use, decreased breath sounds, prolonged expiratory Cardiovascular Exam: Present: normal rhythm, tachycardia, normal heart sounds. Absent: systolic murmur, diastolic murmur, rubs, gallop GI/Abdominal exam: Present: soft. Absent: distended, tenderness, guarding, rebound, rigid Extremities exam: Present: normal inspection, normal capillary refill, pedal edema (Trace edema pretibial area bilaterally). Absent: calf tenderness Back exam: Present: normal inspection. Absent: CVA tenderness (R), CVA tenderne ss (L) Neurological exam: Present: alert Psychiatric exam: Present: normal affect Skin exam: Present: warm, dry, intact, normal color. Absent: rash Course Vital Signs 08/19/21 08/19/21 08/19/21 04:39 05:14 05:28 Temperature 99.2 F Pulse Rate 138 H 112 H 101 H Respiratory 30 H Rate Blood Pressure 140/110 O2 Sat by Pulse Oximetry 08/19/21 06:13 Temperature Pulse Rate 62 Respiratory 20 Rate Blood Pressure 107/84 O2 Sat by Pulse 97 Oximetry Medical Decision Making - Lab Data Result diagrams: 08/19/21 05:13 08/19/21 05:06 Lab Results 08/19/21 08/19/21 08/19/21 Range/Units 05:06 05:13 05:13 WBC 18.5 H (3.8-10.6) k/uL RBC 5.09 (4.30-5.90) m/uL Hgb 15.5 (13.0-17.5) gm/dL Hct 49.4 (39.0-53.0) % MCV 97.0 (80.0-100.0) fL MCH 30.4 (25.0-35.0) pg MCHC 31.4 (31.0-37.0) g/dL RDW 13.9 (11.5-15.5) % Plt Count 157 (150-450) k/uL MPV 8.7 Neutrophils % 90 % Lymphocytes % 6 % Monocytes % 4 % Eosinophils % 0 % Basophils % 0 % Neutrophils # 16.6 H (1.3-7.7) k/uL Lymphocytes # 1.1 (1.0-4.8) k/uL Monocytes # 0.7 (0-1.0) k/uL Eosinophils # 0.0 (0-0.7) k/uL Basophils # 0.0 (0-0.2) k/uL PT 11.1 (9.0-12.0) sec INR 1.0 (<1.2) APTT 22.8 (22.0-30.0) sec D-Dimer 2.07 H (<0.60) mg/L FEU Sodium 137 (137-145) mmol/L Potassium 5.3 H (3.5-5.1) mmol/L Chloride 104 (98-107) mmol/L Carbon Dioxide 18 L (22-30) mmol/L Anion Gap 15 mmol/L BUN 30 H (9-20) mg/dL Creatinine 1.38 H (0.66-1.25) mg/dL Est GFR (CKD-EPI)AfAm 60 (>60 ml/min/1.73 sqM) Est GFR (CKD-EPI)NonAf 52 (>60 ml/min/1.73 sqM) Glucose 138 H (74-99) mg/dL Lactic Ac Sepsis Rflx Plasma Lactic Acid Calvin (0.7-2.0) mmol/L Calcium 9.4 (8.4-10.2) mg/dL Total Bilirubin 0.7 (0.2-1.3) mg/dL AST 42 (17-59) U/L ALT 20 (4-49) U/L Alkaline Phosphatase 80 (38-126) U/L Troponin I (0.000-0.034) ng/mL NT-Pro-B Natriuret Pep pg/mL Total Protein 6.7 (6.3-8.2) g/dL Albumin 4.2 (3.5-5.0) g/dL 08/19/21 08/19/21 08/19/21 Range/Units 05:13 05:13 05:13 WBC (3.8-10.6) k/uL RBC (4.30-5.90) m/uL Hgb (13.0-17.5) gm/dL Hct (39.0-53.0) % MCV (80.0-100.0) fL MCH (25.0-35.0) pg MCHC (31.0-37.0) g/dL RDW (11.5-15.5) % Plt Count (150-450) k/uL MPV Neutrophils % % Lymphocytes % % Monocytes % % Eosinophils % % Basophils % % Neutrophils # (1.3-7.7) k/uL Lymphocytes # (1.0-4.8) k/uL Monocytes # (0-1.0) k/uL Eosinophils # (0-0.7) k/uL Basophils # (0-0.2) k/uL PT (9.0-12.0) sec INR (<1.2) APTT (22.0-30.0) sec D-Dimer (<0.60) mg/L FEU Sodium (137-145) mmol/L Potassium (3.5-5.1) mmol/L Chloride (98-107) mmol/L Carbon Dioxide (22-30) mmol/L Anion Gap mmol/L BUN (9-20) mg/dL Creatinine (0.66-1.25) mg/dL Est GFR (CKD-EPI)AfAm (>60 ml/min/1.73 sqM) Est GFR (CKD-EPI)NonAf (>60 ml/min/1.73 sqM) Glucose (74-99) mg/dL Lactic Ac Sepsis Rflx Plasma Lactic Acid Calvin 6.2 H* (0.7-2.0) mmol/L Calcium (8.4-10.2) mg/dL Total Bilirubin (0.2-1.3) mg/dL AST (17-59) U/L ALT (4-49) U/L Alkaline Phosphatase (38-126) U/L Troponin I 0.175 H* (0.000-0.034) ng/mL NT-Pro-B Natriuret Pep 81689 pg/mL Total Protein (6.3-8.2) g/dL Albumin (3.5-5.0) g/dL 08/19/21 Range/Units 06:07 WBC (3.8-10.6) k/uL RBC (4.30-5.90) m/uL Hgb (13.0-17.5) gm/dL Hct (39.0-53.0) % MCV (80.0-100.0) fL MCH (25.0-35.0) pg MCHC (31.0-37.0) g/dL RDW (11.5-15.5) % Plt Count (150-450) k/uL MPV Neutrophils % % Lymphocytes % % Monocytes % % Eosinophils % % Basophils % % Neutrophils # (1.3-7.7) k/uL Lymphocytes # (1.0-4.8) k/uL Monocytes # (0-1.0) k/uL Eosinophils # (0-0.7) k/uL Basophils # (0-0.2) k/uL PT (9.0-12.0) sec INR (<1.2) APTT (22.0-30.0) sec D-Dimer (<0.60) mg/L FEU Sodium (137-145) mmol/L Potassium (3.5-5.1) mmol/L Chloride (98-107) mmol/L Carbon Dioxide (22-30) mmol/L Anion Gap mmol/L BUN (9-20) mg/dL Creatinine (0.66-1.25) mg/dL Est GFR (CKD-EPI)AfAm (>60 ml/min/1.73 sqM) Est GFR (CKD-EPI)NonAf (>60 ml/min/1.73 sqM) Glucose (74-99) mg/dL Lactic Ac Sepsis Rflx Y Plasma Lactic Acid Calvin (0.7-2.0) mmol/L Calcium (8.4-10.2) mg/dL Total Bilirubin (0.2-1.3) mg/dL AST (17-59) U/L ALT (4-49) U/L Alkaline Phosphatase (38-126) U/L Troponin I (0.000-0.034) ng/mL NT-Pro-B Natriuret Pep pg/mL Total Protein (6.3-8.2) g/dL Albumin (3.5-5.0) g/dL - EKG Data -: EKG Interpreted by Md EKG shows normal: axis (Normal), intervals (Normal), ST-T waves (Possible lateral ischemia.) Rate: tachycardia (Rate 120 bpm) Interpretation: other (Underlying rhythm appears to be atrial fibrillation) Disposition Referrals: Donita Darden MD [Primary Care Provider] - 1-2 days
[2021-08-19] MEDS ORDERED: FUROSEMIDE 40 MG TAB PO SCH (09:00)
[2021-08-19] MEDS: HEPARIN SOD,PORK IN 0.45% NACL 25,000 UNIT in 0.45% NACL 1 250ML.BAG IV SCH (09:16)
--- NOTE | 2021-08-19 10:57 | P.CNPUL ---
History of Present Illness Consult date: 08/19/21 Reason for consult: dyspnea, cough, COPD, hypoxemia, pulmonary embolism Chief complaint: Acute onset of shortness of breath History of present illness: Patient is a 71-year-old male with complex medical problems and issues, patient has been doing fairly well except when last night trying to sleep and got short of breath, denies any fever and chills, does have cough which is nonproductive, chest tightness and pain intermittently is there, due to continuous issues with shortness of breath intermittent pain decided to come into hospital for further evaluation and intervention and treatment, currently patient has been getting bronchodilators and smokes 1 pack a day patient also has a history of dyslipidemia along with history off coronary artery disease had been on direct oral anticoagulant, currently off of it His significant past medical history include coronary artery disease status post CABG, severe COPD, dyslipidemia, hypertension and cardiovascular disease, pneumonia, In emergency department he had a low-grade temperature tachycardic tachypneic with heart rate of 138 respiratory rate of 30, blood pressure 140/110 labs were significant for white cell count of 18,500 hemoglobin and hematocrit 16 and 49 platelets are 1 57,000 BUN/creatinine is 30/1.38, potassium 5.3, troponin elevated 0.175, lactic acid is 6.2, BNP is 11,000, chest x-ray suggested a left lower lobe pneumonia, computed tomography scan of the chest positive for pulmonary embolism on the right side pulmonary artery likely chronic tumor cannot be excluded, right ventricular strain in his and another issue cannot be excluded Currently patient is on the Lasix, heparin, bronchodilators and continuation of home medications Review of Systems All systems: negative Past Medical History Past Medical History: Coronary Artery Disease (CAD), COPD, Hyperlipidemia, Hypertension, Myocardial Infarction ([place]), Pneumonia Additional Past Medical History / Comment(s): '"tremors", emphysema, back pain - pt stated that he was supposed to be getting a CT scan of his lower back over the next few days. Last Myocardial Infarction Date:: 12/2015 History of Any Multi-Drug Resistant Organisms: None Reported Past Surgical History: Coronary Bypass/CABG, Heart Catheterization, Hernia Repair, Tonsillectomy Additional Past Surgical History / Comment(s): rt inguinal hernia repair, 3 vessel cabg. carotid r side 03/24 Past Anesthesia/Blood Transfusion Reactions: No Reported Reaction Additional Past Anesthesia/Blood Transfusion Reaction / Comment(s): stated never had any blood transfusions Past Psychological History: Anxiety, Depression Smoking Status: Current every day smoker Past Alcohol Use History: None Reported Past Drug Use History: Marijuana - Past Family History Mother Family Medical History: CVA/TIA Father Additional Family Medical History / Comment(s): aaa repair Medications and Allergies Home Medications Medication Instructions Recorded Confirmed Type Ipratropium-Albuterol Nebulize 3 ml INHALATION RT-Q6H PRN 11/03/17 08/19/21 Hist ory [Duoneb 0.5 mg-3 mg/3 ml Soln] Aspirin EC [Ecotrin Low Dose] 81 mg PO DAILY 01/20/18 08/19/21 History Albuterol Sulfate [Proair Hfa] 1 - 2 puff INHALATION Q4H PRN #1 02/21/18 08/19/21 Rx inhaler Atorvastatin Calcium [Lipitor] 80 mg PO DAILY 06/10/21 08/19/21 History Montelukast Sodium [Singulair] 10 mg PO HS 06/10/21 08/19/21 History Apixaban [Eliquis] 5 mg PO BID #60 tab 06/15/21 08/19/21 Rx Furosemide [Lasix] 40 mg PO DAILY #30 tab 06/15/21 08/19/21 Rx Gabapentin [Neurontin] 200 mg PO BID #12 cap 06/15/21 08/19/21 Rx Metoprolol Tartrate [Lopressor] 12.5 mg PO BID #60 tab 06/15/21 08/19/21 Rx lisinopriL [Zestril] 2.5 mg PO DAILY #30 tab 06/15/21 08/19/21 Rx Nicotine 21Mg/24Hr Patch [Habitrol] 1 each TRANSDERM DAILY #15 patch 06/16/21 08/19/21 Rx Allergies Allergy/AdvReac Type Severity Reaction Status Date / Time No Known Allergies Allergy Verified 08/19/21 09:34 Physical Exam Vitals: Vital Signs Temp Pulse Resp BP Pulse Ox 08/19/21 10:21 165 H 22 106/43 98 08/19/21 10:15 168 H 22 90/64 97 08/19/21 09:02 63 20 129/72 99 08/19/21 08:00 63 18 118/66 97 08/19/21 06:13 62 20 107/84 97 10/13/21 05:28 101 H 08/19/21 05:14 112 H 08/19/21 04:39 99.2 F 138 H 30 H 140/110 Intake and Output 08/18/21 08/19/21 08/19/21 22:59 06:59 14:59 Other: Weight 77.111 kg - Constitutional General appearance: average body habitus, cooperative, disheveled - EENT Eyes: EOMI, PERRLA Ears: bilateral: normal - Neck Neck: normal ROM Carotids: bilateral: upstroke normal Thyroid: bilateral: normal size - Respiratory Respiratory: bilateral: diminished, wheezing - Cardiovascular Heart sounds: normal: S1, S2 - Gastrointestinal General gastrointestinal: distended - Integumentary Bilateral lower extremity swelling and erythematous and early cellulitis changes Integumentary: normal - Neurologic Neurologic: CNII-XII intact - Musculoskeletal Musculoskeletal: generalized weakness - Psychiatric Psychiatric: A&O x's 3 Results - Laboratory Findings CBC and BMP: 08/19/21 05:13 08/19/21 05:06 PT/INR, D-dimer PT 11.1 sec (9.0-12.0) 08/19/21 05:13 INR 1.0 (<1.2) 08/19/21 05:13 D-Dimer 2.07 mg/L FEU (<0.60) H 08/19/21 05:13 Abnormal lab findings: Abnormal Labs 08/19/21 08/19/21 08/19/21 05:06 05:13 05:13 WBC 18.5 H Neutrophils # 16.6 H D-Dimer 2.07 H Potassium 5.3 H Carbon Dioxide 18 L BUN 30 H Creatinine 1.38 H Glucose 138 H Plasma Lactic Acid Calvin Troponin I 08/19/21 08/19/21 05:13 05:13 WBC Neutrophils # D-Dimer Potassium Carbon Dioxide BUN Creatinine Glucose Plasma Lactic Acid Calvin 6.2 H* Troponin I 0.175 H* - Diagnostic Findings Chest x-ray: report reviewed, image reviewed CT scan - chest: report reviewed, image reviewed Assessment and Plan Assessment: Shortness of breath intermittent chest tightness differential diagnoses include Left lower lobe pneumonia Pulmonary embolism chronic Non-STEMI With Bilateral lower extremity cellulitis Acute COPD exacerbation Acute on chronic renal failure/acute kidney injury Hypertension hypertensive cardiovascular disease Coronary artery disease Plan: Continue heparin Obtain echocardiogram Patient will benefit from consult from cardiology and nephrology Hold RIGOBERTO inhibitor's Gentle rehydration with intermittent diuresis Broad-spectrum antibiotics Continue bronchodilator Supplemental oxygen Further plan of care as per clinical response the patient Time with Patient: Greater than 30
[2021-08-19] MEDS ORDERED: methylPREDNISolone SOD SUCCI 40 MG/ML 1 ML VIAL IV SCH (11:00)
[2021-08-19] MEDS: IPRATROPIUM-ALBUTEROL 3 ML NEB INHALATION PRN ×2 (12:39→19:30)
[2021-08-19] MEDS: LORazepam 2 MG/ML INJ IV PRN ×4 (12:45→21:11)
--- NOTE | 2021-08-19 14:25 | P.CRDCN ---
History of Present Illness Consult date: 08/19/21 History of present illness: HISTORY OF PRESENT ILLNESS: This is a 71-year-old male with a past medical history significant for COPD, coronary artery disease with previous CABG, hypertension, hyperlipidemia, and chronic PE. Patient used to follow in office with DR. North but has not been seen since 2018. We have been asked to see the patient in consultation for PE. Patient examined at the bedside in the emergency room. The patient's nurse is present who states the patient was anxious upon arrival and received Ativan. The patient is lethargic at the time of examination and is unable to provide any HPI. According to the nurse, the patient presented to the hospital secondary to tachycardia and shortness of breath. The patient was in A. fib with RVR upon arrival. He is currently sinus mechanism on telemetry. He does state Eliquis at home. However at this time he is on an IV heparin infusion. EKG reveals atrial fibrillation with RVR Chest xray there is some chronic interstitial pneumonia left lower lobe which is slightly worse than last exam. No heart failure. Chest CT: Pulmonary embolus appears adherent to the wall in the right pulmonary artery extending into the right chest, findings are chronic, follow-up is sugges sanaz to assess for resolution, to her not excluded as described on prior report. Reflux of contrast into the hepatic veins could be due to some right-sided heart strain although there does not appear to be any significant intraventricular septal deviation. Laboratory data: WBC 18.5. Hemoglobin 15.5. Platelet count 157. D-dimer 2.07. Sodium 137. Potassium 5.3. BUN 30. Crit and 1.38. Lactic acid 6.2. Repeat 1.7. Troponin 0.175. ProBNP 11,000. Current home cardiac medications include lisinopril 2.5 mg daily, metoprolol tartrate 12.5 mg twice a day, Lasix 40 mg daily, atorvastatin 80 mg daily, aspirin 81 mg daily, Eliquis 5mg twice a day Most recent echocardiogram obtained in June 2021 revealed ejection fraction 25-30%, mild mitral regurgitation, mild tricuspid regurgitation, mild pulmonary retention REVIEW OF SYSTEMS: At the time of my exam: Unable to obtain thorough review of systems secondary to altered mental status PHYSICAL EXAM: VITAL SIGNS: Reviewed. GENERAL: Well-developed in no acute distress. HEENT: Head is normocephalic. Pupils are equal, round. Sclerae anicteric. Mucous membranes of the mouth are moist. Neck supple. No JVD or thyromegaly LUNGS: Respirations even and unlabored. Lungs diminished to auscultation bilaterally. HEART: Regular rate and rhythm. S1 and S2 heard. ABDOMEN: Soft. Nondistended. Nontender. EXTREMITIES: Normal range of motion. No clubbing or cyanosis. Peripheral pulses intact. Bilateral lower extremity edema with evidence of cellulitis NEUROLOGIC: Lethargic ASSESSMENT: Left lower lobe pneumonia Acute COPD exacerbation Lactic acidosis Acute kidney injury Hyperkalemia Paroxysmal atrial fibrillation with RVR, possibly new onset Chronic PE, on anticoagulation with Eliquis Coronary artery disease with previous CABG Chronic systolic congestive heart failure Known ischemic cardiomyopathy Hypertension Hyperlipidemia PLAN: Obtain 2-D echo to assess cardiac structure and function Patient is currently lethargic and unable to take oral medications. Will continue IV heparin overnight and transition back to Eliquis tomorrow if patient is more awake RIGOBERTO inhibitor on hold secondary to acute kidney injury Continue additional cardiac medications No need for EKOS at this time per Dr. Luong Further recommendations pending patient course Nurse practitioner note has been reviewed by physician. Signing provider agrees with the documented findings, assessment, and plan of care. Past Medical History Past Medical History: Coronary Artery Disease (CAD), COPD, Hyperlipidemia, Hypertension, Myocardial Infarction (CT), Pneumonia Additional Past Medical History / Comment(s): '"tremors", emphysema, back pain - pt stated that he was supposed to be getting a CT scan of his lower back over the next few days. Last Myocardial Infarction Date:: 12/2015 History of Any Multi-Drug Resistant Organisms: None Reported Past Surgical History: Coronary Bypass/CABG, Heart Catheterization, Hernia Repair, Tonsillectomy Additional Past Surgical History / Comment(s): rt inguinal hernia repair, 3 vessel cabg. carotid r side 03/24 Past Anesthesia/Blood Transfusion Reactions: No Reported Reaction Additional Past Anesthesia/Blood Transfusion Reaction / Comment(s): stated never had any blood transfusions Past Psychological History: Anxiety, Depression Smoking Status: Current every day smoker Past Alcohol Use History: None Reported Past Drug Use History: Marijuana - Past Family History Mother Family Medical History: CVA/TIA Father Additional Family Medical History / Comment(s): aaa repair Medications and Allergies Home Medications Medication Instructions Recorded Confirmed Type Ipratropium-Albuterol Nebulize 3 ml INHALATION RT-Q6H PRN 11/03/17 08/19/21 History [Duoneb 0.5 mg-3 mg/3 ml Soln] Aspirin EC [Ecotrin Low Dose] 81 mg PO DAILY 01/20/18 08/19/21 History Albuterol Sulfate [Proair Hfa] 1 - 2 puff INHALATION Q4H PRN #1 02/21/18 08/19/21 Rx inhaler Atorvastatin Calcium [Lipitor] 80 mg PO DAILY 06/10/21 08/19/21 History Montelukast Sodium [Singulair] 10 mg PO HS 06/10/21 08/19/21 History Apixaban [Eliquis] 5 mg PO BID #60 tab 06/15/21 08/19/21 Rx Furosemide [Lasix] 40 mg PO DAILY #30 tab 06/15/21 08/19/21 Rx Gabapentin [Neurontin] 200 mg PO BID #12 cap 06/15/21 08/19/21 Rx Metoprolol Tartrate [Lopressor] 12.5 mg PO BID #60 tab 06/15/21 08/19/21 Rx lisinopriL [Zestril] 2.5 mg PO DAILY #30 tab 06/15/21 08/19/21 Rx Nicotine 21Mg/24Hr Patch [Habitrol] 1 each TRANSDERM DAILY #15 patch 06/16/21 08/19/21 Rx Allergies Allergy/AdvReac Type Severity Reaction Status Date / Time No Known Allergies Allergy Verified 08/19/21 09:34 Physical Exam Vitals: Vital Signs Temp Pulse Resp BP Pulse Ox 08/19/21 12:50 99 20 08/19/21 12:42 85 18 08/19/21 11:11 58 L 16 149/88 99 08/19/21 10:21 165 H 22 106/43 98 08/19/21 10:15 168 H 22 90/64 97 08/19/21 09:02 63 20 129/72 99 08/19/21 08:00 63 18 118/66 97 08/19/21 06:13 62 20 107/84 97 08/19/21 05:28 101 H 08/19/21 05:14 112 H 08/19/21 04:39 99.2 F 138 H 30 H 140/110 Intake and Output 10/10/2708/19/21 08/19/21 22:59 06:59 14:59 Other: Weight 77.111 kg Results 08/19/21 05:13 08/19/21 05:06 Cardiac Enzymes 08/19/21 08/19/21 Range/Units 05:06 05:13 AST 42 (17-59) U/L Troponin I 0.175 H* (0.000-0.034) ng/mL Coagulation 08/19/21 Range/Units 05:13 PT 11.1 (9.0-12.0) sec APTT 22.8 (22.0-30.0) sec CBC 08/19/21 Range/Units 05:13 WBC 18.5 H (3.8-10.6) k/uL RBC 5.09 (4.30-5.90) m/uL Hgb 15.5 (13.0-17.5) gm/dL Hct 49.4 (39.0-53.0) % Plt Count 157 (150-450) k/uL Comprehensive Metabolic Panel 08/19/21 Range/Units 05:06 Sodium 137 (137-145) mmol/L Potassium 5.3 H (3.5-5.1) mmol/L Chloride 104 (98-107) mmol/L Carbon Dioxide 18 L (22-30) mmol/L BUN 30 H (9-20) mg/dL Creatinine 1.38 H (0.66-1.25) mg/dL Glucose 138 H (74-99) mg/dL Calcium 9.4 (8.4-10.2) mg/dL AST 42 (17-59) U/L ALT 20 (4-49) U/L Alkaline Phosphatase 80 (38-126) U/L Total Protein 6.7 (6.3-8.2) g/dL Albumin 4.2 (3.5-5.0) g/dL Current Medications Generic Name Dose Route Start Last Admin Trade Name Freq PRN Reason Stop Dose Admin Acetaminophen 650 mg 08/19/21 08:33 Acetaminophen Tab 325 Mg Tab PO Q6HR PRN Mild Pain or Fever > 100.5 Albuterol/Ipratropium 3 ml 08/19/21 08:37 08/19/21 12:39 Ipratropium-Albuterol 3 Ml Neb INHALATION 3 ml RT-Q6H PRN Administration Shortness Of Breath Atorvastatin Calcium 80 mg 08/19/21 09:00 Atorvastatin 80 Mg Tab PO DAILY [facility] Famotidine 20 mg 08/19/21 09:00 Famotidine 20 Mg Tab PO BID [facility] Furosemide 40 mg 08/19/21 09:00 Furosemide 40 Mg Tab PO DAILY [facility] Gabapentin 200 mg 08/19/21 09:00 Gabapentin 100 Mg Cap PO BID [facility] Heparin Sodium (Porcine) 0 unit 08/19/21 08:07 Heparin Sodium 1,000 Un/Ml (10ml Vl) IV PER PROTOCOL PRN Low PTT Protocol Heparin Sodium/Sodium Chloride 250 mls @ 13.88 mls/hr 08/19/21 08:15 08/19/21 09:16 25,000 unit/ Sodium Chloride IV 18 units/kg/hr .Q18H1M JYOTSNA 13.88 mls/hr Administration Protocol 18 UNITS/KG/HR Sodium Chloride 1,000 mls @ 75 mls/hr 08/19/21 08:45 Saline 0.9% IV .[id number] [facility] Ceftriaxone Sodium 1 gm/ 50 mls @ 100 mls/hr 08/19/21 11:00 Sodium Chloride IVPB Q24HR [facility] Lorazepam 0.5 mg 08/19/21 08:33 08/19/21 12:45 Lorazepam 2 Mg/Ml Inj IV 0.5 mg Q6HR PRN Administration Anxiety Methylprednisolone Sodium Succinate 40 mg 08/19/21 11:00 Methylprednisolone Sod Succi 40 Mg/Ml 1 Ml Vial IV Q12HR [facility] Metoprolol Tartrate 12.5 mg 08/19/21 09:00 Metoprolol Tartrate 12.5 Mg Tab PO BID [facility] Montelukast Sodium 10 mg 08/19/21 21:00 Montelukast 10 Mg Tab PO HS [facility] Morphine Sulfate 4 mg 08/19/21 08:33 Morphine Sulfate 4 Mg/Ml Syringe IV Q4HR PRN Severe Pain Naloxone HCl 0.2 mg 08/19/21 08:33 Naloxone 0.4 Mg/Ml 1 Ml Vial IV Q2M PRN Opioid Reversal Ondansetron HCl 4 mg 08/19/21 08:33 Ondansetron 4 Mg/2 Ml Vial IVP Q8HR PRN Nausea And Vomiting Intake and Output 08/18/21 08/19/21 08/19/21 22:59 06:59 14:59 Other: Weight 77.111 kg 08/19/21 05:13 08/19/21 05:06
[2021-08-19 17:23] LABS: ABG Base Excess -1.3 mmol/L; ABG HCO3 24 mmol/L (21-25); ABG Oxygen Saturation 99.9 % (94-97); ABG PCO2 45 mmHg (35-45); ABG PH 7.34 (7.35-7.45); ABG PO2 263 mmHg (83-108); ABG TCO2 26 mmol/L (19-24); Allen Test Performed? Yes
[2021-08-19] MEDS ORDERED: FUROSEMIDE 10 MG/ML 10 ML VIAL IV STA (17:25)
[2021-08-19] MEDS ORDERED: LORazepam 2 MG/ML INJ IV PRN ×2 (17:29)
[2021-08-19] MEDS ORDERED: THIAMINE 100 MG/ML 2 ML VIAL IM STA (17:29)
[2021-08-19] MEDS ORDERED: methylPREDNISolone SOD SUCCI 125 MG/2 ML VIAL IV SCH (18:00)
[2021-08-19] MEDS: GABAPENTIN 100 MG CAP PO SCH ×2 (18:59→23:37)
[2021-08-19] MEDS: FAMOTIDINE 20 MG TAB PO SCH ×2 (18:59→23:37)
[2021-08-19] MEDS: ATORVASTATIN 80 MG TAB PO SCH (18:59)
[2021-08-19] MEDS: METOPROLOL TARTRATE 12.5 MG TAB PO SCH ×2 (19:00→23:38)
[2021-08-19 19:32] LABS: Glucose,Whole Blood 108 mg/dL (75-99)
[2021-08-19 19:49] LABS: Glucose,Whole Blood 103 mg/dL (75-99)
--- NOTE | 2021-08-19 20:17 | HP ---
HISTORY AND PHYSICAL CHIEF COMPLAINT: Shortness of breath and change in mental status. HISTORY OF PRESENT ILLNESS: This 71-year-old gentleman with a past medical history of multiple medical problems including CAD, COPD, hypertension, hyperlipidemia, history of myocardial infarction, history of pneumonia, history of tremors, history of emphysema, history of CAD, CABG being followed by Dr. Donita Darden in the outpatient setting, not feeling well over the past several days. The patient came to [facility] with complaints of shortness of breath and COPD acute exacerbation diagnosed. The patient could not catch the breath and the patient also had chronic nonproductive cough also. The patient was evaluated and COPD acute exacerbation and as well as left lower lobe pneumonia was suspected and the patient admitted for further evaluation and treatment. The chest CTA showed some apparently chronic pulmonary embolism. Dr. Bhatia and Cardiology following the patient closely. The patient had atrial fibrillation with fast ventricular rate. There is no history of fever, rigors or chills. No history of headache, loss of consciousness or seizures at this time. Currently the patient is sedated after an episode of restlessness, possibly withdrawals or possibly secondary to hypoxia and unable to give a coherent history. Most of the history is taken from my discussion with staff and discussion with the the ER physician and review of the chart. PAST MEDICAL HISTORY: CAD, COPD, hypertension, hyperlipidemia, history of myocardial infarction, history of pneumonia. MEDICATION: Home medications are reviewed and include: Zestril, Habitrol, Singulair, Lopressor, DuoNeb, Neurontin, Lasix, Lipitor, Ecotrin, Eliquis, and ProAir. Doses reviewed. ALLERGIES: None. Family history, social history and review of systems could not be taken because of the patient's change in mental status. Per chart, history of current smoking and THC. PHYSICAL EXAMINATION: Patient is stuporous and barely arousable. Pulse 128, blood pressure 90/60, respiration 20, temperature normal, pulse ox 98% on 2 L. HEENT: Conjunctivae normal. NECK: No JVD. CARDIOVASCULAR: S1, S2 muffled. RESPIRATORY SYSTEM: Breath sounds diminished at the bases. A few scattered rhonchi and crackles. ABDOMEN: Soft, nontender. LEGS are no edema. No swelling. NERVOUS SYSTEM: Higher functions as mentioned earlier. Moves all four extremities. No focal deficits. LYMPHATICS: No lymph nodes palpable in the neck, axillae or groin. SKIN: No ulcer, rash or bleeding. JOINTS: No active deforming arthropathy. LABS: WBC 18, hemoglobin 15.5, sodium 130, potassium 5.3. Creatinine is 1.38 and plasma lactic acid 6.2. The chest x-ray which was reviewed personally by me showed possibly bibasilar infiltrate, left more than the right. The CTA chest was noted which showed right pulmonary embolism chronic. ASSESSMENT: 1. Chronic obstructive pulmonary disease acute exacerbation with acute bibasilar pneumonia possibly gram-negative with sepsis and acute hypoxic respiratory failure. 2. Change in mental status, acute metabolic encephalopathy. 3. Elevated troponin at 0.175. Rule out acute ywi-EN-gakutzz-elevation myocardial infarction. 4. Rule out DTs. 5. Elevated plasma lactic acid. 6. Heparin monitoring. 7. Elevated D-dimer. 8. Chronic pulmonary embolism. 9. Hyperkalemia. 10.Renal failure, acute renal failure with acute tubular necrosis. 11.Increased WBC possibly secondary to sepsis. 12.History of coronary artery disease. 13.Chronic obstructive pulmonary disease. 14.Hypertension. 15.Hyperlipidemia. 16.Myocardial infarction. 17.History of pneumonia. 18.History of tremors. 19.History of back pain, degenerative joint disease. 20.History of coronary artery disease, coronary artery bypass grafting. 21.History of anxiety, depression. 22.History of nicotine dependence. 23.History of THC. 24.FULL CODE. RECOMMENDATIONS AND DISCUSSION: This 71-year-old gentleman who presented with multiple complex medical issues, we will monitor the patient closely. Continue the bronchodilators. Continue the empiric antibiotics. Continue with IV heparin. Closely follow with Cardiology and Pulmonology. Continue with IV steroids. Guarded prognosis because of the multiple complex medical issues. Further recommendations to follow. A copy of this dictation is being forwarded to Dr. Donita Darden who is the primary physician. The patient also had abnormal movements and hallucinations and other findings which could also indicate either alcohol withdrawal or hypoxic encephalopathy, so we also would also recommend CIWA, protocol monitor for CIWA protocol closely as well. A urine drug screen and alcohol level also will be ordered. Further recommendations to follow. See orders for details. MMODL / IJN: [id number] /
--- NOTE | 2021-08-19 21:07 | P.EN ---
A team called on this patient due to respiratory distress, patient looks confused, suspected a component of alcohol withdrawal. respiratory exam shows diffuse wheezing and using abd muscles BP 141/82, HR 90s acute respiratory distress alcohol withdrawal syndrome plan breathing treatment Bipap benzo per CIWA transfer to ICU for close monitoring continue with heparin drip for PE Dr Bhatia paged through PS Total amount of critical care time spent was 35 minutes not counting procedures performed.
[2021-08-19] MEDS: SODIUM CHLORIDE 0.9% 1,000 ML IV SCH ×2 (22:00→22:12)
[2021-08-19 22:13] LABS: Appearance,Urine Clear (Clear); Bacteria,Urine Rare /hpf; Bilirubin,Urine Negative (Negative); Blood,Urine Large (Negative); Color,Urine Colorless; Glucose,Urine (UA) Negative (Negative); Ketones,Urine Negative (Negative); Leukocyte Esterase,Urine Negative (Negative); Mucus,Urine Rare /hpf; Nitrite,Urine Negative (Negative); Protein,Urine Negative (Negative); RBC,Urine 38 /hpf (0-5); Specific Gravity,Urine 1.008 (1.001-1.035); Urobilinogen,Urine <2.0 mg/dL (<2.0); WBC,Urine 2 /hpf (0-5)
[2021-08-19 22:20] LABS: Amphetamine Screen,Urine Not Detected (NotDetected); Barbiturate Screen,Urine Not Detected (NotDetected); Benzodiazepines Screen,Urine Detected (NotDetected); Cocaine Screen,Urine Not Detected (NotDetected); Methadone Screen, Urine Not Detected (NotDetected); Opiate Screen,Urine Detected (NotDetected); Oxycodone Screen, Urine Not Detected (NotDetected); Phencyclidine Screen,Urine Not Detected (NotDetected); Tricyclic Antidepressant,Urine Not Detected (NotDetected); Urn Cannabinoid Scrn Detected (NotDetected)
[2021-08-19] MEDS: MONTELUKAST 10 MG TAB PO SCH (23:38)
[2021-08-20] MEDS: methylPREDNISolone SOD SUCCI 125 MG/2 ML VIAL IV SCH ×5 (00:07→23:20)
[2021-08-20 06:11] LABS: Basophils % (A) 0 %; Eosinophils % (A) 0 %; HCT 45.5 % (39.0-53.0); HGB 14.9 gm/dL (13.0-17.5); Lymphocytes # (A) 0.6 k/uL (1.0-4.8); Lymphocytes % (A) 7 %; MCH 31.5 pg (25.0-35.0); MCHC 32.8 g/dL (31.0-37.0); MCV 96.2 fL (80.0-100.0); Mean Platelet Volume 9.2; Monocytes # (A) 0.1 k/uL (0-1.0); Monocytes % (A) 2 %; Neutrophils % (A) 91 %; Platelet Count 103 k/uL (150-450); RBC 4.73 m/uL (4.30-5.90); RDW 14.4 % (11.5-15.5); WBC 8.8 k/uL (3.8-10.6)
[2021-08-20 07:07] LABS: Calcium 8.8 mg/dL (8.4-10.2); Potassium 4.7 mmol/L (3.5-5.1)
[2021-08-20 08:09] LABS: Basophils % (A) 0 %; Eosinophils % (A) 0 %; HCT 47.2 % (39.0-53.0); HGB 15.1 gm/dL (13.0-17.5); Lymphocytes # (A) 0.7 k/uL (1.0-4.8); Lymphocytes % (A) 7 %; MCH 31.4 pg (25.0-35.0); MCHC 32.1 g/dL (31.0-37.0); MCV 98.1 fL (80.0-100.0); Mean Platelet Volume 8.1; Monocytes # (A) 0.2 k/uL (0-1.0); Monocytes % (A) 2 %; Neutrophils # (A) 8.6 k/uL (1.3-7.7); Neutrophils % (A) 90 %; Platelet Count 101 k/uL (150-450); RBC 4.81 m/uL (4.30-5.90); RDW 13.9 % (11.5-15.5); WBC 9.6 k/uL (3.8-10.6)
[2021-08-20] MEDS: HEPARIN SOD,PORK IN 0.45% NACL 25,000 UNIT in 0.45% NACL 1 250ML.BAG IV SCH ×2 (09:18→09:22)
[2021-08-20] MEDS: FUROSEMIDE 10 MG/ML 4 ML VIAL IV SCH (09:21)
[2021-08-20] MEDS: ATORVASTATIN 80 MG TAB PO SCH (09:28)
[2021-08-20] MEDS: MULTIVITAMINS, THERA 1 EACH TAB PO SCH (09:29)
[2021-08-20] MEDS: GABAPENTIN 100 MG CAP PO SCH ×2 (09:29→20:43)
[2021-08-20] MEDS: METOPROLOL TARTRATE 12.5 MG TAB PO SCH ×2 (10:56→20:43)
[2021-08-20] MEDS: THIAMINE 100 MG TAB PO SCH ×2 (10:56→19:02)
[2021-08-20] MEDS: FAMOTIDINE 20 MG TAB PO SCH ×2 (10:56→20:43)
[2021-08-20] MEDS: NICOTINE 21MG/24HR PATCH TRANSDERM SCH (10:57)
--- NOTE | 2021-08-20 12:01 | ECHOF ---
Referral Reason:pulmnary hypertension MEASUREMENTS -------- HEIGHT: 182.9 cm WEIGHT: 75.7 kg BP: 127/81 RVIDd: 4.5 cm (< 3.3) IVSd: 1.0 cm (0.6 - 1.1) LVIDd: 5.7 cm (3.9 - 5.3) LVPWd: 1.0 cm (0.6 - 1.1) IVSs: 1.2 cm LVIDs: 4.9 cm LVPWs: 1.2 cm LAESV Index (A-L): 32.97 ml/m Ao Diam: 3.0 cm (2.0 - 3.7) AV Cusp: 1.7 cm (1.5 - 2.6) LA Diam: 4.5 cm (2.7 - 3.8) MV EXCURSION: 18.739 mm (> 18.000) MV EF SLOPE: 47 mm/s (70 - 150) EPSS: 1.5 cm MV E Ashish: 0.45 m/s MV DecT: 202 ms MV A Ashish: 0.69 m/s MV E/A Ratio: 0.65 RAP: 5.00 mmHg RVSP: 38.77 mmHg FINDINGS -------- Sinus rhythm. This was a technically adequate study. The left ventricular size is normal. Left ventricular wall thickness is normal. There is moderate global hypokinesis of LV . Overall left ventricular systolic function is severely impaired with, a n EF between 25 - 30 %. The right ventricle is moderately enlarged. LA is midly dilated 29-33ml/m2. The right atrium is mildly enlarged. Interatrial and interventricular septum intact. There is mild aortic valve sclerosis. There is no evidence of aortic regurgitation. There is no e vidence of aortic stenosis. Mild mitral regurgitation is present. Mild tricuspid regurgitation present. There is mild pulmonary hypertension. The right ventricular systolic pressure, as measured by Doppler, is 38.77mmHg. There is no pulmonic regurgitation present. The aortic root size is normal. IVC Not well visulized. There is no pericardial effusion. CONCLUSIONS -------- 1. The left ventricular size is normal. 2. Left ventricular wall thickness is normal. 3. There is moderate global hypokinesis of LV . 4. Overall left ventricular systolic function is severely impaired with, an EF between 25 - 30 %. 5. The right ventricle is moderately enlarged. 6. LA is midly dilated 29-33ml/m2. 7. The right atrium is mildly enlarged. 8. There is mild aortic valve sclerosis. 9. Mild mitral regurgitation is present. 10. Mild tricuspid regurgitation present. 11. There is mild pulmonary hypertension. 12. The right ventricular systolic pressure, as measured by Doppler, is 38.77mmHg. FORMING OPERATOR: Michelle Ybarra RDCS
--- NOTE | 2021-08-20 12:14 | PN ---
PROGRESS NOTE Ben is on a BiPAP this morning. Continues to be sedated and not responsive. He is receiving Ativan. He converted to sinus rhythm. Heart rate is slow at 45 beats per minute. Blood pressure is 150/80. Afebrile. Respiratory rate is 18. Chest exam reveals diminished air entry at the bases. Heart exam reveals first and second heart sounds. Systolic murmur at the left lower sternal border. Abdomen is soft. Exam of extremities reveals mild edema. Peripheral pulses are palpable but diminished. Lab show a hemoglobin of 15.1 platelet count is 101, potassium is 4.7. Creatinine is 1.1. UA was positive for opiate and benzodiazepine and marijuana. ASSESSMENT: 1. Coronary artery disease status post coronary artery bypass grafting. 2. Hypertension. 3. Dyslipidemia. 4. Paroxysmal atrial fibrillation. 5. Chronic pulmonary embolism. 6. Respiratory insufficiency. PLAN: Please continue the patient on Lipitor, IV Lasix and Lopressor. He will continue IV heparin as it is unclear if he is able to take any oral medications at this time. MMODL / IJN: [id number] /
--- NOTE | 2021-08-20 12:42 | XR ---
EXAMINATION TYPE: XR chest 1V portable DATE OF EXAM: 08/20/2021 COMPARISON: 08/19/2021 INDICATION: COPD, short of breath TECHNIQUE: Single frontal view of the chest is obtained. FINDINGS: The heart size is mildly prominent. The pulmonary vasculature is normal. Mild infiltrates in the left upper lobe. Correlate for developing pneumonia. Continued follow-up is r ecommended. IMPRESSION: 1. Developing left upper lobe infiltrate. Correlate for pneumonia. Continued follow-up is recommended
[2021-08-20] MEDS: SODIUM CHLORIDE 0.9% 1,000 ML IV SCH (14:12)
[2021-08-20] MEDS: FOLIC ACID 1 MG TAB PO SCH (14:46)
[2021-08-20] MEDS: IPRATROPIUM-ALBUTEROL 3 ML NEB INHALATION PRN ×2 (14:48→19:15)
[2021-08-20] MEDS: LORazepam 2 MG/ML INJ IV PRN ×3 (14:50→23:19)
--- NOTE | 2021-08-20 18:11 | PN ---
PROGRESS NOTE DATE OF SERVICE: 08/20/2021 This 71-year-old gentleman who was admitted with shortness of breath and change in mental status has COPD, acute exacerbation. Patient also had metabolic encephalopathy. The patient is not taking alcohol at all, according to the family. The patient is monitored in the ICU at this time. The patient is hypoxic. Pulmonary is following the patient closely. Chest x-ray showed bilateral infiltrates, indicating possible pneumonia. No chest pain. No palpitations. No fever. Past medical history reviewed. Review of systems could not be taken because of the patient's change in mental status. CURRENT MEDICATIONS: Reviewed. They include Tylenol, DuoNeb, Lipitor, Rocephin, Pepcid, folic acid, Lasix, Neurontin, heparin. Doses are reviewed. PHYSICAL EXAMINATION: Patient alert and oriented x3. Pulse 47, blood pressure 164/76, respirations 16, temperature 97.9, pulse ox 96% on 40% BiPAP. HEENT: Conjunctivae normal. NECK: No jugular venous distention. CARDIOVASCULAR: S1, S2 muffled. RESPIRATION: Breath sounds diminished at the bases. Scattered rhonchi and crackles. ABDOMEN: Soft, nontender. LEGS: No edema. No swelling. NERVOUS SYSTEM: No focal deficit. LABS: 9.6 and platelets are 101. Sodium 137, potassium 4.7. UA noted. ASSESSMENT: 1. Chronic obstructive pulmonary disease, acute exacerbation, with acute bibasilar pneumonia, possibly Gram-negative with sepsis and acute hypoxic respiratory failure, present on admission. 2. Acute on chronic systolic dysfunction with ejection fraction 25% to 30% with possible cardiomyopathy. 3. Change in mental status, acute metabolic encephalopathy. 4. Elevated troponin 0.175. Rule out acute rtv-JE-mibebdf-elevation myocardial infarction. 5. Elevated plasma lactic acid. 6. Heparin monitoring. 7. Elevated D-dimer. 8. Chronic pulmonary embolism. 9. Hyperkalemia. 10.Acute renal failure with acute tubular necrosis. 11.Increased white count, possibly secondary to sepsis. 12.History of coronary artery disease. 13.Chronic obstructive pulmonary disease. 14.Hypertension. 15.Hyperlipidemia. 16.HISTORY OF myocardial infarction. 17.History of pneumonia. 18.History of tremors. 19.History of back pain, degenerative joint disease. 20.History of coronary artery disease, coronary artery bypass grafting. 21.History of anxiety, depression. 22.History of nicotine dependence. 23.History of THC. 24.FULL CODE. RECOMMENDATIONS AND DISCUSSION: I recommend to continue current medications, continue with symptomatic treatment. Continue with empiric antibiotics. Monitor closely. Continue the bronchodilators. The patient received some Lasix also. The patient is on IV steroids as well. Pulmonary and Cardiology are following the patient closely. Guarded prognosis. Further recommendations to follow. A 2D echo showed ejection fraction about 25% to 30%. LA is dilated and mild minimal valvular abnormalities are noted. Overall prognosis is extremely guarded because of the multiple complex medical issues. Further recommendations to follow. MMODL / IJN: [id number] / MTDRicky
[2021-08-20] MEDS: MONTELUKAST 10 MG TAB PO SCH (20:42)
[2021-08-21] MEDS: IPRATROPIUM-ALBUTEROL 3 ML NEB INHALATION PRN ×3 (02:06→18:02)
[2021-08-21 05:45] LABS: Basophils % (A) 0 %; Eosinophils % (A) 0 %; HGB 13.9 gm/dL (13.0-17.5); Lymphocytes # (A) 0.7 k/uL (1.0-4.8); Lymphocytes % (A) 9 %; MCH 31.3 pg (25.0-35.0); MCV 94.9 fL (80.0-100.0); Mean Platelet Volume 8.3; Monocytes # (A) 0.2 k/uL (0-1.0); Monocytes % (A) 3 %; Neutrophils # (A) 6.7 k/uL (1.3-7.7); Neutrophils % (A) 88 %; Platelet Count 104 k/uL (150-450); RBC 4.42 m/uL (4.30-5.90); RDW 14.1 % (11.5-15.5); WBC 7.7 k/uL (3.8-10.6)
[2021-08-21] MEDS: methylPREDNISolone SOD SUCCI 125 MG/2 ML VIAL IV SCH ×3 (05:45→17:25)
[2021-08-21 05:49] LABS: Calcium 8.2 mg/dL (8.4-10.2); Potassium 4.4 mmol/L (3.5-5.1)
--- NOTE | 2021-08-21 06:16 | XR ---
EXAMINATION TYPE: XR chest 1V portable DATE OF EXAM: 08/21/2021 CLINICAL HISTORY: Difficulty breathing progress study. TECHNIQUE: Single AP portable semiupright view of the chest is obtained. COMPARISON: Chest x-ray from one day earlier and older studies. FINDINGS: Osseous structures are demineralized. Overlying sternal wires and mediastinal clips are pr esent. There is stable cardiomegaly. There is chronic emphysematous and parenchymal changes with slig ht worsening left upper lung and developing right basilar opacities. IMPRESSION: Chronic changes seen cardiomegaly with slight worsening left upper lung infiltrate and de veloping right basilar acute infiltrate thought present.
[2021-08-21] MEDS: FUROSEMIDE 10 MG/ML 4 ML VIAL IV SCH (09:27)
[2021-08-21] MEDS: MULTIVITAMINS, THERA 1 EACH TAB PO SCH (09:28)
[2021-08-21] MEDS: METOPROLOL TARTRATE 12.5 MG TAB PO SCH ×2 (09:28→22:22)
[2021-08-21] MEDS: FAMOTIDINE 20 MG TAB PO SCH ×2 (09:28→22:22)
[2021-08-21] MEDS: THIAMINE 100 MG TAB PO SCH ×2 (09:28→17:25)
[2021-08-21] MEDS: ATORVASTATIN 80 MG TAB PO SCH (09:28)
[2021-08-21] MEDS: NICOTINE 21MG/24HR PATCH TRANSDERM SCH (09:35)
[2021-08-21] MEDS: GABAPENTIN 100 MG CAP PO SCH ×2 (09:35→22:21)
[2021-08-21] MEDS: HEPARIN SOD,PORK IN 0.45% NACL 25,000 UNIT in 0.45% NACL 1 250ML.BAG IV SCH (09:35)
--- NOTE | 2021-08-21 10:19 | PN ---
PROGRESS NOTE Ben is a 71-year-old gentleman who is admitted to the hospital with atrial fibrillation with rapid ventricular rate and confusion. This morning, patient is awake, alert, sitting up and eating, being fed his breakfast. He remains in sinus rhythm with heart rates in the 40s. Medications include Lipitor, Lasix 40 mg IV daily, IV heparin which I am going to switch to Eliquis that he was on at home. I am holding the beta jignesh because of the bradycardia. On exam, patient is awake, alert. Heart rate is 40s. Blood pressure 133/70. Respirations 18. Chest exam reveals diminished air entry bilaterally. Heart exam reveals first and second heart sounds. Has a systolic murmur at the left lower sternal border. Abdomen is soft. Exam of extremities reveals mild edema. Peripheral pulses are felt. Labs show that the hemoglobin is 13.9, platelet count is 104, potassium is 4.4 and creatinine is 1. ASSESSMENT: 1. Paroxysmal atrial fibrillation. 2. Coronary artery disease. 3. Chronic pulmonary embolism. 4. Respiratory insufficiency. PLAN: The patient is alert, able to the eat, able to take oral medications. I will stop the IV heparin and start him back on Eliquis 5 b.i.d. MMODL / IJN: [id number] /
--- NOTE | 2021-08-21 10:31 | P.PN ---
Subjective Progress Note Date: 08/21/21 Principal diagnosis: Shortness of breath intermittent chest tightness differential diagnoses include Left lower lobe pneumonia Pulmonary embolism chronic Non-STEMI With Bilateral lower extremity cellulitis Acute COPD exacerbation Acute on chronic renal failure/acute kidney injury Hypertension hypertensive cardiovascular disease Coronary artery disease 08/21/2021, patient seen eval examined during the rounds labs reviewed medications reviewed care plan discussed, respiratory status slightly better patient is on 5 L oxygen sitting upright not of intention tremors are present, patient is undergoing physical therapy, mental status is much clear, also talked to the patient about advanced patient remains a full code, overall given the stability is present we'll move to [facility] with remote telemetry, CBC remains stable, PTT is 48.9, heparin can be switched to and requests 5 mg twice a day, renal functions improved to 26.01, Patient is a 71-year-old male with complex medical problems and issues, patient has been doing fairly well except when last night trying to sleep and got short of breath, denies any fever and chills, does have cough which is nonproductive, chest tightness and pain intermittently is there, due to continuous issues with shortness of breath intermittent pain decided to come into hospital for further evaluation and intervention and treatment, currently patient has been getting bronchodilators and smokes 1 pack a day patient also has a history of dyslipidemia along with history off coronary artery disease had been on direct oral anticoagulant, currently off of it His significant past medical history include coronary artery disease status post CABG, severe COPD, dyslipidemia, hypertension and cardiovascular disease, pneumonia, In emergency department he had a low-grade temperature tachycardic tachypneic with heart rate of 138 respiratory rate of 30, blood pressure 140/110 labs were significant for white cell count of 18,500 hemoglobin and hematocrit 16 and 49 platelets are 1 57,000 BUN/creatinine is 30/1.38, potassium 5.3, troponin elevated 0.175, lactic acid is 6.2, BNP is 11,000, chest x-ray suggested a left lower lobe pneumonia, computed tomography scan of the chest positive for pulmonary embolism on the right side pulmonary artery likely chronic tumor cannot be excluded, right ventricular strain in his and another issue cannot be excluded Currently patient is on the Lasix, heparin, bronchodilators and continuation of home medications Objective - Vital Signs Vital signs: Vital Signs Temp 97.0 F L 08/21/21 04:00 Pulse 56 L 08/21/21 10:00 Resp 19 08/21/21 10:00 BP 171/92 08/21/21 10:00 Pulse Ox 98 08/21/21 10:00 Intake & Output 08/20/21 08/21/21 08/21/21 18:59 06:59 18:59 Intake Total 146.487 1811 548.094 Output Total 1725 640 155 Balance -820.148 410 393.094 Weight 77.9 kg Intake: IV 825 900 300 0.9 NaCl- 825 900 300 Intake, IV Titration 79.852 248.094 Amount Heparin Sod,Pork in 0.45% 79.852 248.094 NaCl 25,000 unit In 0.45 % NaCl 1 250ml.bag @ 18 UNITS/KG/HR 13.88 mls/hr IV .Q18H1M [facility] Rx#: [id number] Oral 150 Output: Urine 1725 640 155 Other: Voiding Method Indwelling Catheter Indwelling Catheter # Voids 1 - Exam - Constitutional General appearance: average body habitus, cooperative, disheveled - EENT Eyes: EOMI, PERRLA Ears: bilateral: normal - Neck Neck: normal ROM Carotids: bilateral: upstroke normal Thyroid: bilateral: normal size - Respiratory Respiratory: bilateral: diminished, wheezing - Cardiovascular Heart sounds: normal: S1, S2 - Gastrointestinal General gastrointestinal: distended - Integumentary Bilateral lower extremity swelling and erythematous and early cellulitis changes Integumentary: normal - Neurologic Neurologic: CNII-XII intact - Musculoskeletal Musculoskeletal: generalized weakness - Psychiatric Psychiatric: A&O x's 3 - Labs CBC & Chem 7: 08/21/21 05:04 08/21/21 05:04 Labs: Abnormal Lab Results - Last 24 Hours (Table) 08/19/21 08/21/21 08/21/21 Range/Units 17:20 05:04 05:04 Plt Count 104 L (150-450) k/uL Lymphocytes # 0.7 L (1.0-4.8) k/uL APTT (22.0-30.0) sec ABG pH 7.34 L (7.35-7.45) ABG pO2 263 H (83-108) mmHg ABG Total CO2 26 H (19-24) mmol/L ABG O2 Saturation 99.9 H (94-97) % Sodium 136 L (137-145) mmol/L BUN 26 H (9-20) mg/dL Glucose 130 H (74-99) mg/dL Calcium 8.2 L (8.4-10.2) mg/dL 08/21/21 Range/Units 05:04 Plt Count (150-450) k/uL Lymphocytes # (1.0-4.8) k/uL APTT 48.9 H (22.0-30.0) sec ABG pH (7.35-7.45) ABG pO2 (83-108) mmHg ABG Total CO2 (19-24) mmol/L ABG O2 Saturation (94-97) % Sodium (137-145) mmol/L BUN (9-20) mg/dL Glucose (74-99) mg/dL Calcium (8.4-10.2) mg/dL Assessment and Plan Assessment: Shortness of breath intermittent chest tightness differential diagnoses include Left lower lobe pneumonia Pulmonary embolism chronic Non-STEMI With Bilateral lower extremity cellulitis Acute COPD exacerbation Acute on chronic renal failure/acute kidney injury Hypertension hypertensive cardiovascular disease Coronary artery disease Plan: Increase activity as tolerated Heparin can be stopped can be switched to [place] was Reviewed echo result echocardiogram Gentle rehydration with intermittent diuresis Broad-spectrum antibiotics Continue bronchodilator Supplemental oxygen Further plan of care as per clinical response the patient Time with Patient: Greater than 30
[2021-08-21] MEDS: FOLIC ACID 1 MG TAB PO SCH (13:01)
[2021-08-21] MEDS: TAMSULOSIN 0.4 MG CAP.ER.24H PO SCH (13:03)
--- NOTE | 2021-08-21 13:46 | P.PN ---
Subjective Progress Note Date: 08/21/21 This is a 71-year-old male who was recently admitted with shortness of breath and change in mental status is being closely monitored in the ICU. Patient also admitted with chronic obstructive pulmonary disease acute exacerbation. Patient was also found to have metabolic encephalopathy. Multiple medical consultations including pulmonary Dr. Bhatia, cardiology following closely. Chest x-ray today shows chronic changes seen with slight worsening of the left upper lung infiltrate and developing right basilar acute infiltrate thought to be present with chronic emphysematous and parenchymal changes noted. Patient continues to be extremely dyspneic and currently requiring 15 L high flow nasal cannula. Indwelling Estevez catheter removed and will monitor for any retention. Patient states he feels the urge to void although has not voided yet. Will add Flomax 0.4 mg daily and continue to monitor with bladder scans. Review of systems: Constitutional: reports of fatigue, no reports of fever, or chills Cardiovascular: No reports of chest pain or palpitations Respiratory: reports continued shortness of breath GI: No reports of nausea, vomiting, or diarrhea : No reports of dysuria or retention, recent indwelling Estevez catheter removed this morning and feels the urge to void but not bleeding at Neurovascular: reports of weakness Labs: White blood count is 7.7, hemoglobin is 13.9, platelets are 104, sodium is 136 with a potassium of 4.4, BUN is 26, creatinine is 1.01 All medications have been reviewed Active Medications Acetaminophen (Acetaminophen Tab 325 Mg Tab) 650 mg PO Q6HR PRN PRN Reason: Mild Pain or Fever > 100.5 Albuterol/Ipratropium (Ipratropium-Albuterol 3 Ml Neb) 3 ml INHALATION RT-Q6H PRN PRN Reason: Shortness Of Breath Last Admin: 08/21/21 08:36 Dose: 3 ml Documented by: Apixaban (Apixaban 5 Mg Tab) 5 mg PO BID [facility]; Protocol Atorvastatin Calcium (Atorvastatin 80 Mg Tab) 80 mg PO DAILY [facility] Last Admin: 08/21/21 09:28 Dose: 80 mg Documented by: Famotidine (Famotidine 20 Mg Tab) 20 mg PO BID [facility] Last Admin: 08/21/21 09:28 Dose: 20 mg Documented by: Folic Acid (Folic Acid 1 Mg Tab) 1 mg PO DAILY@1200 [facility] Last Admin: 08/21/21 13:01 Dose: 1 mg Documented by: Furosemide (Furosemide 10 Mg/Ml 4 Ml Vial) 40 mg IV DAILY [facility] Last Admin: 08/21/21 09:27 Dose: 40 mg Documented by: Gabapentin (Gabapentin 100 Mg Cap) 200 mg PO BID [facility] Last Admin: 08/21/21 09:35 Dose: 200 mg Documented by: Sodium Chloride (Saline 0.9%) 1,000 mls @ 75 mls/hr IV .[id number] [facility] Last Admin: 08/20/21 14:12 Dose: 75 mls/hr Documented by: Ceftriaxone Sodium 1 gm/ (Sodium Chloride) 50 mls @ 100 mls/hr IVPB Q24HR [facility] Last Admin: 08/21/21 09:27 Dose: 100 mls/hr Documented by: Lorazepam (Lorazepam 2 Mg/Ml Inj) 0.5 mg IV Q6HR PRN PRN Reason: Anxiety Last Admin: 08/20/21 23:19 Dose: 0.5 mg Documented by: Lorazepam (Lorazepam 2 Mg/Ml Inj) 1 mg IV Q2HR PRN PRN Reason: CIWA 8 or 9 Last Admin: 08/20/21 18:10 Dose: 1 mg Documented by: Lorazepam (Lorazepam 2 Mg/Ml Inj) 1 mg IV Q1HR PRN PRN Reason: CIWA 10 to 15 Last Admin: 08/20/21 19:34 Dose: 1 mg Documented by: Lorazepam (Lorazepam 2 Mg/Ml Inj) 2 mg IV Q10M PRN PRN Reason: CIWA 16 or higher Stop: 08/21/21 17:29 Last Admin: 08/19/21 18:35 Dose: 2 mg Documented by: Methylprednisolone Sodium Succinate (Methylprednisolone Sod Succi 125 Mg/2 Ml Vial) 60 mg IV Q6HR [facility] Last Admin: 08/21/21 13:01 Dose: 60 mg Documented by: Metoprolol Tartrate (Metoprolol Tartrate 12.5 Mg Tab) 12.5 mg PO BID [facility] Last Admin: 08/21/21 09:28 Dose: 12.5 mg Documented by: Montelukast Sodium (Montelukast 10 Mg Tab) 10 mg PO HS [facility] Last Admin: 08/20/21 20:42 Dose: 10 mg Documented by: Morphine Sulfate (Morphine Sulfate 4 Mg/Ml Syringe) 4 mg IV Q4HR PRN PRN Reason: Severe Pain Last Admin: 08/20/21 18:52 Dose: 4 mg Documented by: Multivitamins (Multivitamins, Thera 1 Each Tab) 1 each PO DAILY [facility] Last Admin: 08/21/21 09:28 Dose: 1 each Documented by: Naloxone HCl (Naloxone 0.4 Mg/Ml 1 Ml Vial) 0.2 mg IV Q2M PRN PRN Reason: Opioid Reversal Nicotine (Nicotine 21mg/24hr Patch) 1 patch TRANSDERM DAILY [facility] Last Admin: 08/21/21 09:35 Dose: 1 patch Documented by: Ondansetron HCl (Ondansetron 4 Mg/2 Ml Vial) 4 mg IVP Q8HR PRN PRN Reason: Nausea And Vomiting Tamsulosin HCl (Tamsulosin 0.4 Mg Cap.Er.24h) 0.4 mg PO PC-SUPPER [facility] Last Admin: 08/21/21 13:03 Dose: 0.4 mg Documented by: Thiamine HCl (Thiamine 100 Mg Tab) 100 mg PO BID-W/MEALS [facility] Last Admin: 08/21/21 09:28 Dose: 100 mg Documented by: Physical exam: Gen: This is a 71-year-old male awake, alert and oriented 3, thin built, ill- appearing, appears much older than stated age. Pulse is 56, respirations are 19, blood pressures 171/92, oxygen saturation is 98% on 15 L HF. BiPAP on standby HEENT: Head is atraumatic, normocephalic. Pupils equal, round. Sclerae is anicteric. NECK: Supple. No JVD. No lymphadenopathy. No thyromegaly. LUNGS: Diminished breath sounds bilaterally with some scattered rhonchi and crackles noted. No intercostal retractions. HEART: S1, S2 are muffled ABDOMEN: Soft. Bowel sounds are present. No masses. No tenderness. EXTREMITIES: No pedal edema. No calf tenderness. NEUROLOGICAL: Patient is awake, alert and oriented x3. Diffusely weak. Assessment: Chronic obstructive pulmonary disease, acute exacerbation with acute by basilar pneumonia, possibly gram-negative with sepsis, and acute hypoxic respiratory failure, present on admission Acute on chronic systolic dysfunction with ejection fraction 25-30% with possible cardiomyopathy Change in mental status, acute metabolic encephalopathy Elevated troponin 0.175, rule out acute non-ST segment elevation myocardial infarction Elevated plasma lactic acid Heparin monitoring Elevated d-dimer Chronic pulmonary embolism Hyperkalemia Acute renal failure with acute tubular necrosis Increased white count, possibly secondary to sepsis History of coronary artery disease Chronic obstructive pulmonary disease Hypertension Hyperlipidemia History of myocardial infarction history of pneumonia History of tremors history of back pain, degenerative joint disease History of coronary artery disease, coronary artery bypass grafting History of anxiety, depression History of nicotine dependence history of THC Full code Plan: Recommend to continue with current medications, management, and symptomatic treatment. Pulmonary Dr. Bhatia along with cardiology following closely and patie nt is continued in the ICU with possibility of transfer to a [facility] floor once a bed becomes available. Patient continues to be extremely weak and dyspneic and BiPAP on standby. Patient is on 15 L high flow nasal cannula. Patient was continued on IV heparin and being transitioned oral anticoagulant Eliquis. Cardiology following closely as well. Recommend to continue telemetry monitoring and patient will continue on IV steroids along with breathing inhalational treatments. Continue to monitor closely for any signs of alcohol withdrawal and will use CIWA protocol as needed. Continue with IV Lasix daily along with IV ceftriaxone. Patient did have indwelling Estevez catheter removed and feels the urge to urinate although has not voided yet. Will add Flomax and monitor closely for any signs of retention and recommend bladder scanning as needed. Due to the multiple complex medical issues, prognosis is guarded. Will repeat labs in continue to monitor closely. Objective - Vital Signs Vital signs: Vital Signs Temp 97.0 F L 08/21/21 04:00 Pulse 56 L 08/21/21 10:00 Resp 19 08/21/21 10:00 BP 171/92 08/21/21 10:00 Pulse Ox 98 08/21/21 10:00 Intake & Output 08/20/21 08/21/21 08/21/21 18:59 06:59 18:59 Intake Total 978.170 2506 548.094 Output Total 1725 640 155 Balance -820.148 410 393.094 Weight 77.9 kg Intake: IV 825 900 300 0.9 NaCl- 825 900 300 Intake, IV Titration 79.852 248.094 Amount Heparin Sod,Pork in 0.45% 79.852 248.094 NaCl 25,000 unit In 0.45 % NaCl 1 250ml.bag @ 18 UNITS/KG/HR 13.88 mls/hr IV .Q18H1M [facility] Rx#: [id number] Oral 150 Output: Urine 1725 640 155 Other: Voiding Method Indwelling Catheter Indwelling Catheter Indwelling Catheter # Voids 1 - Labs CBC & Chem 7: 08/21/21 05:04 08/21/21 05:04 Labs: Abnormal Lab Results - Last 24 Hours (Table) 08/19/21 08/21/21 08/21/21 Range/Units 17:20 05:04 05:04 Plt Count 104 L (150-450) k/uL Lymphocytes # 0.7 L (1.0-4.8) k/uL APTT (22.0-30.0) sec ABG pH 7.34 L (7.35-7.45) ABG pO2 263 H (83-108) mmHg ABG Total CO2 26 H (19-24) mmol/L ABG O2 Saturation 99.9 H (94-97) % Sodium 136 L (137-145) mmol/L BUN 26 H (9-20) mg/dL Glucose 130 H (74-99) mg/dL Calcium 8.2 L (8.4-10.2) mg/dL 08/21/21 Range/Units 05:04 Plt Count (150-450) k/uL Lymphocytes # (1.0-4.8) k/uL APTT 48.9 H (22.0-30.0) sec ABG pH (7.35-7.45) ABG pO2 (83-108) mmHg ABG Total CO2 (19-24) mmol/L ABG O2 Saturation (94-97) % Sodium (137-145) mmol/L BUN (9-20) mg/dL Glucose (74-99) mg/dL Calcium (8.4-10.2) mg/dL
[2021-08-21] MEDS: SODIUM CHLORIDE 0.9% 1,000 ML IV SCH ×2 (14:22→16:25)
[2021-08-21] MEDS ORDERED: TAMSULOSIN 0.4 MG CAP.ER.24H PO SCH (18:30)
[2021-08-21] MEDS: APIXABAN 5 MG TAB PO SCH (22:22)
[2021-08-21] MEDS: MONTELUKAST 10 MG TAB PO SCH (22:22)
[2021-08-22] MEDS: methylPREDNISolone SOD SUCCI 125 MG/2 ML VIAL IV SCH ×4 (00:17→21:35)
[2021-08-22] MEDS: IPRATROPIUM-ALBUTEROL 3 ML NEB INHALATION PRN ×3 (01:56→17:46)
[2021-08-22] MEDS: SODIUM CHLORIDE 0.9% 1,000 ML IV SCH ×3 (05:30→21:29)
[2021-08-22] MEDS: ATORVASTATIN 80 MG TAB PO SCH (08:25)
[2021-08-22] MEDS: MULTIVITAMINS, THERA 1 EACH TAB PO SCH (08:25)
[2021-08-22] MEDS: FUROSEMIDE 10 MG/ML 4 ML VIAL IV SCH (08:25)
[2021-08-22] MEDS: GABAPENTIN 100 MG CAP PO SCH ×2 (08:25→21:31)
[2021-08-22] MEDS: THIAMINE 100 MG TAB PO SCH ×2 (08:25→16:03)
[2021-08-22] MEDS: METOPROLOL TARTRATE 12.5 MG TAB PO SCH ×2 (08:25→21:31)
[2021-08-22] MEDS: FAMOTIDINE 20 MG TAB PO SCH ×2 (08:25→21:31)
[2021-08-22] MEDS: NICOTINE 21MG/24HR PATCH TRANSDERM SCH (08:25)
[2021-08-22] MEDS: APIXABAN 5 MG TAB PO SCH ×2 (08:26→21:31)
--- NOTE | 2021-08-22 11:51 | PN ---
PROGRESS NOTE FOLLOW-UP NOTE: Ben is a 71-year-old gentleman who was admitted to hospital with atrial fibrillation with rapid ventricular rate and confusion. He became gradually more alert, awake, and he appears fine at the moment. On exam, he remains in sinus rhythm with heart rate of 56 beats per minute. Blood pressure is 94/62. Respiratory rate is 18. Chest exam reveals diminished air entry at the bases. Heart exam reveals first and second heart sounds and a systolic murmur at the left lower sternal border. Abdomen is soft. Examination of extremities reveals mild edema. Peripheral pulses are felt. Labs show a potassium of 4.4. Creatinine is 1. His hemoglobin is 13.9. EKG initially showed atrial fibrillation with rapid ventricular rate with nonspecific ST-T wave changes. ASSESSMENT: Paroxysmal atrial fibrillation. PLAN: He will continue current medications. We can switch him to p.o. Lasix. He is on Eliquis 5 b.i.d., Lipitor, Lopressor. MMMARLA / JORGEN: [id number] /
--- NOTE | 2021-08-22 14:13 | P.CN ---
Psychiatric Consult - . Consult date: 08/22/21 Consult:: 08/22/21 12:36 IDENTIFYING DATA: This patient is a 71-year-old male who currently lives alone in a house with his son and [id number]. He claims that he has 2 kids. REASON FOR REFERRAL: Psychiatry was consulted for altered mental status and unable to make decisions or care for self. HISTORY OF PRESENT ILLNESS: The patient presented to the hospital on 08/19 for shortness of breath. Patient has a chronic history of COPD. He had an elevation in his white blood cell count ANC and creatinine. Patient had elevation in his troponins. He was also diagnosed with metabolic encephalopathy. Patient was seen at the bedside today and agreeable to speak to underwriter. He appeared to be mildly anxious however was fairly cooperative and states that he came to the hospital because he "couldn't breathe well". He states that for approximately 5 years now he has has COPD and problems with his shortness of breath. He states that he felt that someone was trying to kill him. He felt anxious before coming the hospital. He claims that he was picked up by a taxi. He states that his [id number] and son help take care of him. He claims that he does take medications on his own at home. He realizes the importance of taking his medications and going to his appointments. He was alert and oriented 3. That he was in [place] and his full name and also today's date. He states that he sleeps okay and his appetite is fair. He is denying any significant depression today. . At this time patient denies any suicidal or homical ideations, intent or plan. Patient denies any auditory, visual hallucinations and denies any paranoia or delusions. Patients admits to using cigarettes daily and marijuana occasionally. PAST PSYCHIATRIC HISTORY: Patient has a a history of depression and anxiety. Patient denies being on any psychiatric medications. Patient denies any previous psychiatric hospitalizations. Patient denies any psychiatric outpatient follow- up. Patient denies any history of suicide attempts in the past. Past Medical History: Coronary Artery Disease (CAD), COPD, Hyperlipidemia, Hypertension, Myocardial Infarction (OR), Pneumonia Additional Past Medical History / Comment(s): '"tremors", emphysema, back pain - pt stated that he was supposed to be getting a CT scan of his lower back over the next few days. ALLERGIES: as per EMR. CHEMICAL DEPENDENCY HISTORY: as per HPI. FAMILY PSYCHIATRIC/SUBSTANCE USE HISTORY: denies SOCIAL HISTORY: Patient was born and raised in [place], [place]. 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 He denies any legal history. He apparently has 2 kids and currently lives in a house with his son and [id number]. MENTAL STATUS EXAM: General Appearance: Patient appears to be thin, stated age is alert, pleasant, and cooperative. Patient appears to have fair hygiene and grooming wearing hospital gown with fair eye contact. Behavior: Patient is calmly lying in bed without any agitated behavior. Appears to have mild tremors. Speech: Patient's speech is fluent and nonpressured. Mood/Affect: Patient reports their mood is "anxious", affect is congruent appears to be mildly anxious Suicidality/Homicidality: Patient denies having any suicidal or homicidal ideation intent or plan. Perceptions: Patient denies any visual hallucinations and denies any auditory hallucinations Though content/process: There is no evidence of any delusional thought content and thought process is linear and goal-directed. Rambles at times. Memory and concentration: AOX3, grossly intact for the purposes of this session. Can spell "WORLD" backwards Judgment and insight: Fair IMPRESSIONS: Depressive disorder unspecified Generalized anxiety disorder Essential tremors Nicotine dependence PLAN: -At this time patient DOES NOT meet criteria for inpatient psychiatric admission. Patient does have general deecision making capacity. -SW to help look into placement vs gathering more support and services for home care. -Delirium precautions recommended with patient including - avoiding use of narcotics and CULINARY WORKER sedatives, limit anticholinergic medications when possible, frequent re-orientation, minimize use of restraints, open window shades during the day and close them at night -Would recommend the following medication changes/additions: Start BuSpar 7.5 mg 3 times a day for anxiety. Start Lexapro 5 mg daily for anxiety/mood. -winery worker to provide patient with outpatient mental health/psychiatry resources for appropriate follow up upon discharge -Communicated plan to patient's nurse -Psychiatry will sign off at this time -Please contact with any questions.
[2021-08-22] MEDS: FOLIC ACID 1 MG TAB PO SCH (16:03)
[2021-08-22] MEDS: busPIRone HCl 5 MG TAB PO SCH ×2 (16:04→21:30)
[2021-08-22] MEDS: TAMSULOSIN 0.4 MG CAP.ER.24H PO SCH (16:04)
[2021-08-22] MEDS: ESCITALOPRAM 5 MG TAB PO SCH (16:04)
[2021-08-22] MEDS ORDERED: IPRATROPIUM-ALBUTEROL 3 ML NEB INHALATION SCH (20:00)
[2021-08-22] MEDS: IPRATROPIUM-ALBUTEROL 3 ML NEB INHALATION SCH (20:37)
[2021-08-22] MEDS: MONTELUKAST 10 MG TAB PO SCH (21:30)
--- NOTE | 2021-08-22 22:09 | PN ---
PROGRESS NOTE DATE OF SERVICE: 08/22/2021 This 71-year-old gentleman who was admitted with COPD, acute exacerbation, has other multiple medical issues, also. The patient continues to be confused. No chest pain. No palpitations. The patient is weak, also. PHYSICAL EXAMINATION: Alert and oriented x3. Pulse is 66, blood pressure 186/86, respiration 18, temperature 97.8, pulse ox 98% on room air. HEENT: Conjunctivae normal. NECK: No jugular venous distention. CARDIOVASCULAR: S1, S2 muffled. RESPIRATION: Breath sounds diminished at the bases. A few scattered rhonchi. ABDOMEN: Soft. NERVOUS SYSTEM: Diffusely weak. LABS: Platelets are 104. Sodium 135. ASSESSMENT: 1. Chronic obstructive pulmonary disease, acute exacerbation, with acute bibasilar pneumonia, possibly Gram-negative with sepsis with acute hypoxic respiratory failure, present on admission. 2. Congestive heart failure, acute exacerbation, with acute on chronic systolic dysfunction, ejection fraction 25% to 30%, possibly cardiomyopathy. 3. Change in mental status, acute metabolic encephalopathy, multifactorial. 4. Elevated troponin 0.175 of indeterminate significance. 5. Elevated plasma lactic acid. 6. Heparin monitoring. 7. Elevated D-dimer. 8. Chronic pulmonary embolism. 9. Hyperkalemia. 10.Acute renal failure with acute tubular necrosis. 11.No evidence of any acute pulmonary embolism. 12.Increased white count, possibly secondary sepsis. 13.History of coronary artery disease. 14.Chronic obstructive pulmonary disease. 15.Hypertension. 16.Hyperlipidemia. 17.History of myocardial infarction. 18.History of pneumonia. 19.History of tremors. 20.History of back pain, degenerative joint disease. 21.History of coronary artery disease, coronary artery bypass grafting. 22.History of anxiety, depression. 23.History of nicotine dependence. 24.History of THC. 25.FULL CODE. RECOMMENDATIONS AND DISCUSSION: I recommend to continue current medications, continue with symptomatic treatment. Repeat labs. Continue the bronchodilators. Continue with IV steroids. PT/OT evaluation. The most recent chest x-ray done yesterday, which was reviewed personally by me, showed some increased bronchovascular markings and pneumonia, which is improving. Cultures are negative. Guarded prognosis because of the multiple complex medical issues. Further recommendations to follow. COVID-19 was negative. MMODL / IJN: [id number] /
[2021-08-23] MEDS: IPRATROPIUM-ALBUTEROL 3 ML NEB INHALATION SCH ×6 (00:33→19:26)
[2021-08-23] MEDS: methylPREDNISolone SOD SUCCI 125 MG/2 ML VIAL IV SCH ×4 (00:40→15:36)
[2021-08-23] MEDS: ACETAMINOPHEN TAB 325 MG TAB PO PRN ×2 (07:59→15:37)
[2021-08-23] MEDS: FUROSEMIDE 10 MG/ML 4 ML VIAL IV SCH (07:59)
[2021-08-23] MEDS: ATORVASTATIN 80 MG TAB PO SCH (08:00)
[2021-08-23] MEDS: ESCITALOPRAM 5 MG TAB PO SCH (08:00)
[2021-08-23] MEDS: GABAPENTIN 100 MG CAP PO SCH ×2 (08:00→21:33)
[2021-08-23] MEDS: METOPROLOL TARTRATE 12.5 MG TAB PO SCH ×2 (08:00→21:34)
[2021-08-23] MEDS: THIAMINE 100 MG TAB PO SCH ×2 (08:00→15:36)
[2021-08-23] MEDS: FAMOTIDINE 20 MG TAB PO SCH ×2 (08:00→21:34)
[2021-08-23] MEDS: busPIRone HCl 5 MG TAB PO SCH ×3 (08:00→21:34)
[2021-08-23] MEDS: FOLIC ACID 1 MG TAB PO SCH (08:01)
[2021-08-23] MEDS: APIXABAN 5 MG TAB PO SCH ×2 (08:01→21:34)
[2021-08-23] MEDS: MULTIVITAMINS, THERA 1 EACH TAB PO SCH (08:01)
[2021-08-23] MEDS: NICOTINE 21MG/24HR PATCH TRANSDERM SCH (08:01)
[2021-08-23 11:39] LABS: African American GFR (CKD) 86.5 (60.0-200.0); Anion Gap 13.7 mmol/L (4.00-12.00); BUN/Creat Ratio 25.78 Ratio (12.00-20.00); Blood Urea Nitrogen 26.3 mg/dL (9.0-27.0); Calcium 8.6 mg/dL (8.7-10.3); Carbon Dioxide 26.3 mmol/L (21.6-31.8); Non-African American GFR(CKD) 74.6 (60.0-200.0); Potassium 4.8 mmol/L (3.5-5.5)
[2021-08-23 11:46] LABS: Basophils # (A) 0.01 X 10*3/uL (0.00-0.10); Basophils % (A) 0.1 %; Eosinophils # (A) 0 X 10*3/uL (0.04-0.35); Eosinophils % (A) 0 %; HCT 45.2 % (39.6-50.0); HGB 14.5 g/dL (13.0-17.0); Lymphocytes # (A) 0.49 X 10*3/uL (0.90-5.00); Lymphocytes % (A) 5.7 %; MCH 30.4 pg (27.0-32.0); MCHC 32.1 g/dL (32.0-37.0); MCV 94.8 fL (80.0-97.0); Mean Platelet Volume 11.7 fL (9.5-12.2); Monocytes # (A) 0.37 X 10*3/uL (0.20-1.00); Monocytes % (A) 4.3 %; Neutrophils # (A) 7.65 X 10*3/uL (1.80-7.70); Neutrophils % (A) 89.1 %; Platelet Count 113 X 10*3/uL (140-440); RBC 4.77 X 10*6/uL (4.40-5.60); RDW 13.3 % (11.5-14.5); WBC 8.59 X 10*3/uL (4.50-10.00)
[2021-08-23] MEDS: TAMSULOSIN 0.4 MG CAP.ER.24H PO SCH (15:36)
--- NOTE | 2021-08-23 17:17 | PN ---
PROGRESS NOTE DATE OF SERVICE: 08/23/2021 This 71-year-old gentleman who was admitted with COPD, acute exacerbation, acute bibasilar pneumonia, also had possibly Gram-negative pneumonia with sepsis. Patient is being closely monitored. No chest pain. No palpitations. No fever. PHYSICAL EXAMINATION: Alert and oriented x2. Pulse is 58, blood pressure 143/77, respiration 20, temperature 99.1, pulse ox 100% on 2 L. HEENT: Conjunctivae normal. NECK: No jugular venous distention. CARDIOVASCULAR: S1, S2 muffled. RESPIRATION: Breath sounds diminished at the bases. A few scattered rhonchi. ABDOMEN: Soft. NERVOUS SYSTEM: No focal deficit. LABS: Platelets are 113. Other labs noted. ASSESSMENT: 1. Chronic obstructive pulmonary disease, acute exacerbation, with acute bibasilar pneumonia, possibly Gram-negative sepsis and acute hypoxic respiratory failure, present on admission. 2. Congestive heart failure, acute exacerbation, with acute on chronic systolic dysfunction, ejection fraction 25% to 30%, with possible cardiomyopathy. 3. Change in mental status, acute metabolic encephalopathy, multifactorial. 4. Elevated troponin at 0.175, undetermined significance. 5. Elevated plasma lactic acid. 6. Heparin monitoring. 7. Elevated D-dimer. 8. Chronic pulmonary embolism. 9. Hyperkalemia. 10.Acute renal failure, acute tubular necrosis. 11.No evidence of any acute pulmonary embolism. 12.Increased white count, possibly secondary to sepsis. 13.History of coronary artery disease. 14.Chronic obstructive pulmonary disease. 15.Hypertension. 16.Hyperlipidemia. 17.History of myocardial infarction. 18.History of pneumonia. 19.History of tremors. 20.History of back pain, degenerative joint disease. 21.History of coronary artery disease, coronary artery bypass grafting. 22.History of anxiety, depression. 23.History of nicotine dependence. 24.History of THC. 25.FULL CODE. RECOMMENDATIONS AND DISCUSSION: I recommend to continue current medications, continue with symptomatic treatment. Otherwise, we will monitor the platelets. Continue with empiric antibiotics. Closely follow with Pulmonary. Guarded prognosis. Further recommendations to follow. MMODL / IJN: [id number] /
[2021-08-23] MEDS: MONTELUKAST 10 MG TAB PO SCH (21:34)
[2021-08-23] MEDS: SODIUM CHLORIDE 0.9% 1,000 ML IV SCH (22:16)
[2021-08-23] MEDS: LORazepam 2 MG/ML INJ IV PRN (23:47)
[2021-08-24] MEDS: IPRATROPIUM-ALBUTEROL 3 ML NEB INHALATION SCH ×4 (00:21→12:40)
[2021-08-24] MEDS: methylPREDNISolone SOD SUCCI 125 MG/2 ML VIAL IV SCH ×3 (00:57→12:23)
[2021-08-24 07:51] VITALS: BP 121/80; TEMP 97.8
[2021-08-24] MEDS ORDERED: FUROSEMIDE 40 MG TAB PO SCH (09:00)
[2021-08-24 09:36] LABS: Anion Gap 14.9 mmol/L (4.00-12.00); BUN/Creat Ratio 22.91 Ratio (12.00-20.00); Blood Urea Nitrogen 25.2 mg/dL (9.0-27.0); Calcium 8.8 mg/dL (8.7-10.3); Carbon Dioxide 26.1 mmol/L (21.6-31.8); Non-African American GFR(CKD) 68.1 (60.0-200.0); Potassium 4.3 mmol/L (3.5-5.5)
[2021-08-24] MEDS: NICOTINE 21MG/24HR PATCH TRANSDERM SCH (09:49)
[2021-08-24] MEDS: APIXABAN 5 MG TAB PO SCH (09:50)
[2021-08-24] MEDS: SODIUM CHLORIDE 0.9% 1,000 ML IV SCH (09:50)
[2021-08-24] MEDS: ATORVASTATIN 80 MG TAB PO SCH (09:50)
[2021-08-24] MEDS: busPIRone HCl 5 MG TAB PO SCH (09:50)
[2021-08-24] MEDS: THIAMINE 100 MG TAB PO SCH (09:50)
[2021-08-24] MEDS: MULTIVITAMINS, THERA 1 EACH TAB PO SCH (09:51)
[2021-08-24] MEDS: METOPROLOL TARTRATE 12.5 MG TAB PO SCH (09:51)
[2021-08-24] MEDS: ESCITALOPRAM 5 MG TAB PO SCH (09:51)
[2021-08-24] MEDS: GABAPENTIN 100 MG CAP PO SCH (09:51)
[2021-08-24] MEDS: FAMOTIDINE 20 MG TAB PO SCH (09:51)
[2021-08-24 11:28] LABS: Basophils # (A) 0.01 X 10*3/uL (0.00-0.10); Basophils % (A) 0.1 %; Eosinophils # (A) 0.01 X 10*3/uL (0.04-0.35); Eosinophils % (A) 0.1 %; HCT 49.3 % (39.6-50.0); HGB 15.8 g/dL (13.0-17.0); Lymphocytes # (A) 0.67 X 10*3/uL (0.90-5.00); Lymphocytes % (A) 6.4 %; MCH 30.4 pg (27.0-32.0); MCV 94.8 fL (80.0-97.0); Mean Platelet Volume 11.8 fL (9.5-12.2); Monocytes # (A) 0.48 X 10*3/uL (0.20-1.00); Monocytes % (A) 4.6 %; Neutrophils % (A) 87.7 %; Platelet Count 143 X 10*3/uL (140-440); RDW 13.3 % (11.5-14.5); WBC 10.49 X 10*3/uL (4.50-10.00)
[2021-08-24] MEDS: FOLIC ACID 1 MG TAB PO SCH (12:23)
[2021-08-24 12:39] VITALS: RESP 16
[2021-08-24 12:50] VITALS: PULSE 60
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
--- NOTE | 2021-08-25 00:15 | P.DS ---
Providers Date of admission: 08/19/21 08:33 Attending physician: Vilma Ellis Consults: 08/19/21 18:03 Consult Physician Routine Consulting Provider: Ezequiel Bhatia Consult Reason/Comments: copd Do you want consulting provider notified?: Yes 08/21/21 13:38 Consult Physician Routine Consulting Provider: Eliseo Hahn Consult Reason/Comments: competency Do you want consulting provider notified?: Yes 08/21/21 14:28 Consult Physician Urgent Consulting Provider: Eliseo Hahn Consult Reason/Comments: Altered mental status, unable to make sound decisions, unable to care for h Do you want consulting provider notified?: Yes 08/24/21 12:04 Consult Physician Urgent Consulting Provider: Pio Clifford Consult Reason/Comments: PE on eliquis Do you want consulting provider notified?: Yes Primary care physician: [facility] Course: Please note the patient was not discharged but left AMA Diagnoses: Noncompliance, leaving AMA Acute right lung PE versus chronic PE Cardiomyopathy with ejection fraction 25-30% Elevated troponin Hematuria Positive urine drug screen for opioids, benzodiazepines and marijuana suspicious for substance abuse Hospital course: This is a pleasant 71 years old male with multiple medical problems including history of DVT and possible history of PE on Eliquis. Patient presents with dyspnea and hypoxia, CTA of the chest showing right pulmonary embolism and patient continued with anticoagulation on Eliquis, patient confirmed he was compliant with his medication. Hematology team evaluated the patient and recommended to continue with the Eliquis. Also patient has been evaluated by assistant mechanic for elevated troponin, and psychiatrist for depression and anxiety and he was started on Lexapro and BuSpar. Patient also is on CIWA protocol for alcohol abuse and risk of withdrawal. Also was on thiamine and gentle hydration. However after rounding today I was called by the staff that patient has already signed and left AMA. Based on my evaluation earlier patient has capacity to make medical decision Physical exam prior to leaving AMAPhysical exam Gen: patient is a AAOx3, no distress CVS: S1-S2, RRR, no murmur Lungs: B/L CTA, no wheezing Abdomen: soft, no distention, no tenderness, positive bowel sounds Extremity: no leg edema or induration Time spent more than 35 minutes Plan - Discharge Summary Discharge Rx Participant: No New Discharge Prescriptions: No Action Ipratropium-Albuterol Nebulize [Tanvirb 0.5 mg-3 mg/3 ml Soln] 3 ml INHALATION RT-Q6H PRN PRN Reason: Shortness Of Breath Aspirin EC [Ecotrin Low Dose] 81 mg PO DAILY Albuterol Sulfate [Proair Hfa] 1 - 2 puff INHALATION Q4H PRN #1 inhaler PRN Reason: Shortness Of Breath Montelukast Sodium [Singulair] 10 mg PO HS Gabapentin [Neurontin] 200 mg PO BID #12 cap lisinopriL [Zestril] 2.5 mg PO DAILY #30 tab Apixaban [Eliquis] 5 mg PO BID #60 tab Atorvastatin Calcium [Lipitor] 80 mg PO DAILY Furosemide [Lasix] 40 mg PO DAILY #30 tab Metoprolol Tartrate [Lopressor] 12.5 mg PO BID #60 tab Nicotine 21Mg/24Hr Patch [Habitrol] 1 each TRANSDERM DAILY #15 patch Discharge Medication List Ipratropium-Albuterol Nebulize [Duoneb 0.5 mg-3 mg/3 ml Soln] 3 ml INHALATION RT-Q6H PRN 11/03/17 [History] Aspirin EC [Ecotrin Low Dose] 81 mg PO DAILY 01/20/18 [History] Albuterol Sulfate [Proair Hfa] 1 - 2 puff INHALATION Q4H PRN #1 inhaler 02/21/18 [Rx] Atorvastatin Calcium [Lipitor] 80 mg PO DAILY 06/10/21 [History] Montelukast Sodium [Singulair] 10 mg PO HS 06/10/21 [History] Apixaban [Eliquis] 5 mg PO BID #60 tab 06/15/21 [Rx] Furosemide [Lasix] 40 mg PO DAILY #30 tab 06/15/21 [Rx] Gabapentin [Neurontin] 200 mg PO BID #12 cap 06/15/21 [Rx] Metoprolol Tartrate [Lopressor] 12.5 mg PO BID #60 tab 06/15/21 [Rx] lisinopriL [Zestril] 2.5 mg PO DAILY #30 tab 06/15/21 [Rx] Nicotine 21Mg/24Hr Patch [Habitrol] 1 each TRANSDERM DAILY #15 patch 06/16/21 [Rx] Follow up Appointment(s)/Referral(s): Donita Darden MD [Primary Care Provider] - 1-2 days Discharge Disposition: Left Against Medical Advice
--- NOTE | 2021-08-25 08:56 | P.PN ---
<Elmira King - Last Filed: 08/25/21 08:47> Subjective Progress Note Date: 08/24/21 This is a 71-year-old male who was recently admitted with shortness of breath and change in mental status is being closely monitored in the ICU. Patient also admitted with chronic obstructive pulmonary disease acute exacerbation. Patient was also found to have metabolic encephalopathy. Multiple medical consultations including pulmonary Dr. Bhatia, cardiology following closely. Chest x-ray today shows chronic changes seen with slight worsening of the left upper lung infiltrate and developing right basilar acute infiltrate thought to be present with chronic emphysematous and parenchymal changes noted. Patient continues to be extremely dyspneic and currently requiring 15 L high flow nasal cannula. Indwelling Estevez catheter removed and will monitor for any retention. Patient states he feels the urge to void although has not voided yet. Will add Flomax 0.4 mg daily and continue to monitor with bladder scans. 08/24/2021 Patient is seen and evaluated in follow-up this morning with no acute overnight issues. Patient is asking when he is being discharged. Patient is weak and physical therapy recommending subacute rehab and patient states he will be going home with his son. Social work following and working on assisting family with guardianship forms and possible ECF placement. Psychiatry evaluated the patient stating he is able to make medical decisions and is alert and competent in doing so. Patient does not meet criteria for inpatient psychiatry. White blood count today is 10.49, hemoglobin is 15.8, platelets are 143, sodium is 137 with a potassium of 4.3, BUN is 25.2 and creatinine is 1.1. Patient has been started on Eliquis with no active bleeding noted. Patient denies any chest pain or shortness of breath and is currently sitting up at the side of the bed on room air. Patient states he does use inhalers and breathing inhalational machines at home. Review of systems: Constitutional: No reports of fatigue, no reports of fever, or chills Cardiovascular: No reports of chest pain or palpitations Respiratory: No reports of shortness of breath GI: No reports of nausea, vomiting, or diarrhea : No reports of dysuria or retention Neurovascular: reports of weakness All medications have been reviewed Active Medications Acetaminophen (Acetaminophen Tab 325 Mg Tab) 650 mg PO Q6HR PRN PRN Reason: Mild Pain or Fever > 100.5 Last Admin: 08/23/21 15:37 Dose: 650 mg Documented by: Albuterol/Ipratropium (Ipratropium-Albuterol 3 Ml Neb) 3 ml INHALATION RT-Q6H PRN PRN Reason: Shortness Of Breath Last Admin: 08/22/21 17:46 Dose: 3 ml Documented by: Albuterol/Ipratropium (Ipratropium-Albuterol 3 Ml Neb) 3 ml INHALATION RT-Q4H [facility] Last Admin: 08/24/21 12:40 Dose: 3 ml Documented by: Apixaban (Apixaban 5 Mg Tab) 5 mg PO BID [facility]; Protocol Last Admin: 08/24/21 09:50 Dose: 5 mg Documented by: Atorvastatin Calcium (Atorvastatin 80 Mg Tab) 80 mg PO DAILY [facility] Last Admin: 08/24/21 09:50 Dose: 80 mg Documented by: Buspirone HCl (Buspirone Hcl 5 Mg Tab) 7.5 mg PO TID [facility] Last Admin: 08/24/21 09:50 Dose: 7.5 mg Documented by: Escitalopram Oxalate (Escitalopram 5 Mg Tab) 5 mg PO DAILY [facility] Last Admin: 08/24/21 09:51 Dose: 5 mg Documented by: Famotidine (Famotidine 20 Mg Tab) 20 mg PO BID [facility] Last Admin: 08/24/21 09:51 Dose: 20 mg Documented by: Folic Acid (Folic Acid 1 Mg Tab) 1 mg PO DAILY@1200 [facility] Last Admin: 08/24/21 12:23 Dose: 1 mg Documented by: Furosemide (Furosemide 40 Mg Tab) 40 mg PO DAILY [facility] Last Admin: 08/24/21 09:51 Dose: 40 mg Documented by: Gabapentin (Gabapentin 100 Mg Cap) 200 mg PO BID [facility] Last Admin: 08/24/21 09:51 Dose: 200 mg Documented by: Sodium Chloride (Saline 0.9%) 1,000 mls @ 75 mls/hr IV .[id number] [facility] Last Admin: 08/24/21 09:50 Dose: 75 mls/hr Documented by: Ceftriaxone Sodium 1 gm/ (Sodium Chloride) 50 mls @ 100 mls/hr IVPB Q24HR [facility] Last Admin: 08/24/21 09:51 Dose: 100 mls/hr Documented by: Lorazepam (Lorazepam 2 Mg/Ml Inj) 1 mg IV Q2HR PRN PRN Reason: CIWA 8 or 9 Last Admin: 08/20/21 18:10 Dose: 1 mg Documented by: Lorazepam (Lorazepam 2 Mg/Ml Inj) 1 mg IV Q1HR PRN PRN Reason: CIWA 10 to 15 Last Admin: 08/23/21 23:47 Dose: 1 mg Documented by: Methylprednisolone Sodium Succinate (Methylprednisolone Sod Succi 125 Mg/2 Ml Vial) 60 mg IV Q6HR [facility] Last Admin: 08/24/21 12:23 Dose: 60 mg Documented by: Metoprolol Tartrate (Metoprolol Tartrate 12.5 Mg Tab) 12.5 mg PO BID [facility] Last Admin: 08/24/21 09:51 Dose: 12.5 mg Documented by: Montelukast Sodium (Montelukast 10 Mg Tab) 10 mg PO HS [facility] Last Admin: 08/23/21 21:34 Dose: 10 mg Documented by: Morphine Sulfate (Morphine Sulfate 4 Mg/Ml Syringe) 4 mg IV Q4HR PRN PRN Reason: Severe Pain Last Admin: 08/20/21 18:52 Dose: 4 mg Documented by: Multivitamins (Multivitamins, Thera 1 Each Tab) 1 each PO DAILY [facility] Last Admin: 08/24/21 09:51 Dose: 1 each Documented by: Naloxone HCl (Naloxone 0.4 Mg/Ml 1 Ml Vial) 0.2 mg IV Q2M PRN PRN Reason: Opioid Reversal Nicotine (Nicotine 21mg/24hr Patch) 1 patch TRANSDERM DAILY [facility] Last Admin: 08/24/21 09:49 Dose: 1 patch Documented by: Ondansetron HCl (Ondansetron 4 Mg/2 Ml Vial) 4 mg IVP Q8HR PRN PRN Reason: Nausea And Vomiting Tamsulosin HCl (Tamsulosin 0.4 Mg Cap.Er.24h) 0.4 mg PO PC-SUPPER [facility] Last Admin: 08/23/21 15:36 Dose: 0.4 mg Documented by: Thiamine HCl (Thiamine 100 Mg Tab) 100 mg PO BID-W/MEALS [facility] Last Admin: 08/24/21 09:50 Dose: 100 mg Documented by: Physical exam: Gen: This is a 71-year-old male awake, alert and oriented 3, thin built, ill- appearing, appears much older than stated age. HEENT: Head is atraumatic, normocephalic. Pupils equal, round. Sclerae is anicteric. NECK: Supple. No JVD. No lymphadenopathy. No thyromegaly. LUNGS: Diminished breath sounds bilaterally with no wheezing or rhonchi noted. No intercostal retractions. HEART: S1, S2 are muffled ABDOMEN: Soft. Bowel sounds are present. No masses. No tenderness. EXTREMITIES: No pedal edema. No calf tenderness. NEUROLOGICAL: Patient is awake, alert and oriented x3. Diffusely weak. Assessment: Chronic obstructive pulmonary disease, acute exacerbation with acute bibasilar pneumonia, possibly gram-negative with sepsis, and acute hypoxic respiratory failure, present on admission Acute on chronic systolic dysfunction with ejection fraction 25-30% with possible cardiomyopathy Change in mental status, acute metabolic encephalopathy Elevated troponin 0.175, undetermined significance Elevated plasma lactic acid Heparin monitoring Elevated d-dimer No evidence of acute pulmonary embolism Chronic pulmonary embolism Hyperkalemia Acute renal failure with acute tubular necrosis Increased white count, possibly secondary to sepsis History of coronary artery disease Chronic obstructive pulmonary disease Hypertension Hyperlipidemia History of myocardial infarction history of pneumonia History of tremors history of back pain, degenerative joint disease History of coronary artery disease, coronary artery bypass grafting History of anxiety, depression History of nicotine dependence history of THC Full code Plan: Recommend to continue with current medications, management, and symptomatic treatment. Pulmonary Dr. Bhatia along with cardiology following closely. Continue to monitor closely for any signs of alcohol withdrawal and will use CIWA protocol as needed. Continue IV ceftriaxone. Continue Flomax and monitor closely for any signs of retention. Psychiatry has evaluated the patient and started patient on antidepressant medication and reports that patient is able to make decisions on his own and is alert and oriented 3. Patient continues to be weak and physical therapy has evaluated the patient recommending subacute rehab and patient states he is going home with his son. Family would like placement. Patient is asking when he is able to go home. Currently sitting up at the side of the bed on room air and denies any shortness of breath. Social work following and working on placement. Due to the multiple complex medical issues, prognosis is guarded. Objective - Vital Signs Vital signs: Vital Signs Temp 97.8 F 08/24/21 07:50 Pulse 69 08/24/21 07:50 Resp 17 08/24/21 07:50 BP 121/80 08/24/21 07:50 Pulse Ox 95 08/24/21 07:50 Intake & Output 08/23/21 08/24/21 08/24/21 18:59 06:59 18:59 Intake Total 600 Output Total 1700 400 Balance -1100 -400 Intake: Oral 600 Output: Urine 1700 400 - Labs CBC & Chem 7: 08/24/21 06:06 08/24/21 06:06 Labs: Abnormal Lab Results - Last 24 Hours (Table) 08/23/21 08/23/21 Range/Units 07:00 07:00 Plt Count 113 L (140-440) X 10*3/uL Plt Count Comment DECREASED A Immature Gran # 0.07 H (0.00-0.04) X 10*3/uL Lymphocytes # 0.49 L (0.90-5.00) X 10*3/uL Eosinophils # 0 L (0.04-0.35) X 10*3/uL Anion Gap 13.70 H (4.00-12.00) mmol/L BUN/Creatinine Ratio 25.78 H (12.00-20.00) Ratio Glucose 157 H (70-110) mg/dL Calcium 8.6 L (8.7-10.3) mg/dL <Ben Garcia E - Last Filed: 08/25/21 22:01> Subjective addendum please refer to my note dc summary Objective - Vital Signs Vital signs: Vital Signs Temp 97.8 F 08/24/21 07:50 Pulse 60 08/24/21 12:50 Resp 16 08/24/21 12:50 BP 121/80 08/24/21 07:50 Pulse Ox 95 08/24/21 08:06 - Labs CBC & Chem 7: 08/24/21 06:06 08/24/21 06:06
== END 2021-08-24 14:34 | disposition left against medical advice (07) | DRG 871 ==
LOC: EC 04:36 → 3SCARD 08:33 → 2SICU 19:36 → 4SSUR 08-21 18:23
PROVIDERS: ADMIT Hospitalist; ATTEND Hospitalist
PROC: 5A09457 Assistance with Respiratory Ventilation, 24-96 Consecutive Hours, Continuous Positive Airway Pressure (ICD-10-PCS; principal; 2021-08-19)
DX: A41.50 Gram-negative sepsis, unspecified (principal); G93.41 Metabolic encephalopathy; I26.99 Other pulmonary embolism without acute cor pulmonale; I50.23 Acute on chronic systolic (congestive) heart failure; I21.4 Non-ST elevation (NSTEMI) myocardial infarction; N17.0 Acute kidney failure with tubular necrosis; E87.2 Acidosis; I13.0 Hypertensive heart and chronic kidney disease with heart failure and stage 1 through stage 4 chronic kidney disease, or unspecified chronic kidney disease; I27.82 Chronic pulmonary embolism; J44.1 Chronic obstructive pulmonary disease with (acute) exacerbation; L03.116 Cellulitis of left lower limb; L03.115 Cellulitis of right lower limb; Z20.822 Contact with and (suspected) exposure to COVID-19; E78.5 Hyperlipidemia, unspecified; E87.5 Hyperkalemia; F10.10 Alcohol abuse, uncomplicated; F17.210 Nicotine dependence, cigarettes, uncomplicated; F41.1 Generalized anxiety disorder; I25.10 Atherosclerotic heart disease of native coronary artery without angina pectoris; I25.5 Ischemic cardiomyopathy; I48.0 Paroxysmal atrial fibrillation; J43.9 Emphysema, unspecified; F32.9 Major depressive disorder, single episode, unspecified; N18.9 Chronic kidney disease, unspecified; Z53.29 Procedure and treatment not carried out because of patient's decision for other reasons; Z79.01 Long term (current) use of anticoagulants; I25.2 Old myocardial infarction; Z79.82 Long term (current) use of aspirin; Z79.899 Other long term (current) drug therapy; Z86.718 Personal history of other venous thrombosis and embolism; Z86.73 Personal history of transient ischemic attack (TIA), and cerebral infarction without residual deficits; Z87.01 Personal history of pneumonia (recurrent); Z95.1 Presence of aortocoronary bypass graft; Z91.19 Patient's noncompliance with other medical treatment and regimen; M19.90 Unspecified osteoarthritis, unspecified site; R09.02 Hypoxemia
CPT/HCPCS: 36415; 36600; 71045; 71275; 80048; 80053; 80306; 80320; 81001; 82805; 83605; 83735; 83880; 84484; 85025; 85379; 85610; 85730; 87635; 93005; 93306; 94640; 94660; 94760; 96374; 96375; 96376; 99285

== ENCOUNTER 2021-09-15 13:13 | Observation (INO) | payer MEDICARE, OTHER ==
[2021-09-15] MEDS ORDERED: SODIUM CHLORIDE 0.9% 1,000 ML IV STA (13:29)
--- NOTE | 2021-09-15 13:33 | ED ---
Chest Pain HPI - General Chief Complaint: Chest Pain Stated Complaint: Chest Pain Time Seen by Provider: 09/15/21 13:13 Source: patient, EMS, RN notes reviewed Mode of arrival: EMS Limitations: no limitations - History of Present Illness Initial Comments: This is a 71-year-old male with a history of a recent NSTEMI also has a PE in the past who presents by EMS with complaints of chest pain that started last night he states he was having pain but he was given 1 nitro and a full dose aspirin in route to. He currently denies any chest pain. He was chills sweats. MD Complaint: chest pain - Related Data Home Medications Medication Instructions Recorded Confirmed Ipratropium-Albuterol Nebulize 3 ml INHALATION RT-Q6H PRN 11/03/17 08/27/21 [Duoneb 0.5 mg-3 mg/3 ml Soln] Aspirin EC [Ecotrin Low Dose] 81 mg PO DAILY 01/20/18 08/27/21 Atorvastatin Calcium [Lipitor] 80 mg PO DAILY 06/10/21 08/27/21 Montelukast Sodium [Singulair] 10 mg PO HS 06/10/21 08/27/21 Albuterol Sulfate [Proair Hfa] 1 - 2 puff INHALATION RT-Q4H PRN 08/27/21 08/27/21 busPIRone HCL [Buspar] 7.5 mg PO BID 08/27/21 08/27/21 Previous Rx's Medication Instructions Recorded Apixaban [Eliquis] 5 mg PO BID #60 tab 06/15/21 Gabapentin [Neurontin] 200 mg PO BID #12 cap 06/15/21 lisinopriL [Zestril] 2.5 mg PO DAILY #30 tab 06/15/21 Albuterol Nebulized [Ventolin 2.5 mg INHALATION RT-QID PRN #60 ml 09/01/21 Nebulized] Escitalopram [Lexapro] 5 mg PO DAILY 30 Days #30 tab 09/01/21 Famotidine [Pepcid] 20 mg PO BID 30 Days #60 tab 09/01/21 Furosemide [Lasix] 40 mg PO BID@0900,1600 30 Days #60 09/01/21 tab Thiamine [Vitamin B-1] 100 mg PO BID-W/MEALS 30 Days #60 09/01/21 tab predniSONE 10 mg PO DIRECTED #30 tab 09/01/21 Allergies Allergy/AdvReac Type Severity Reaction Status Date / Time No Known Allergies Allergy Verified 08/19/21 09:34 Review of Systems ROS Statement: Those systems with pertinent positive or pertinent negative responses have been documented in the HPI. ROS Other: All systems not noted in ROS Statement are negative. EKG Findings - EKG Results: EKG: interpreted by ERMD, sinus rhythm (Sinus bradycardia rate 54 NE interval 148 QRS duration 104 QT since QTC 462/438 artifact present no definitive ST-T wave changes) Past Medical History Past Medical History: Coronary Artery Disease (CAD), COPD, CVA/TIA, Deep Vein Thrombosis (DVT), Hyperlipidemia, Hypertension, Myocardial Infarction ([place]), Pneumonia, Pulmonary Embolus (PE) Additional Past Medical History / Comment(s): '"tremors", emphysema, back pain, Chronic PE Last Myocardial Infarction Date:: 12/2015 History of Any Multi-Drug Resistant Organisms: None Reported Past Surgical History: Coronary Bypass/CABG, Heart Catheterization, Hernia Repair, Tonsillectomy Additional Past Surgical History / Comment(s): rt inguinal hernia repair, 3-4 vessel cabg @ [facility] r side 03/24 Past Anesthesia/Blood Transfusion Reactions: No Reported Reaction Additional Past Anesthesia/Blood Transfusion Reaction / Comment(s): stated never had any blood transfusions Past Psychological History: Anxiety, Depression Smoking Status: Current every day smoker, Heavy tobacco smoker Past Alcohol Use History: None Reported Past Drug Use History: None Reported - Past Family History Mother Family Medical History: CVA/TIA Additional Family Medical History / Comment(s): Pt thinks both his parents had blood clots Father Additional Family Medical History / Comment(s): aaa repair General Exam - General Exam Comments Initial Comments: This a well-developed thin appearing male who is awake alert oriented 3 Limitations: no limitations General appearance: alert, in no apparent distress Head exam: Present: atraumatic, normocephalic, normal inspection Eye exam: Present: normal appearance, PERRL, EOMI. Absent: scleral icterus, conjunctival injection, periorbital swelling ENT exam: Present: mucous membranes dry Neck exam: Present: normal inspection, full ROM, other (Stridor JVD or bruits) Respiratory exam: Present: normal lung sounds bilaterally. Absent: respiratory distress, wheezes, rales, rhonchi, stridor Cardiovascular Exam: Present: regular rate, normal rhythm, normal heart sounds. Absent: systolic murmur, diastolic murmur, rubs, gallop, clicks GI/Abdominal exam: Present: soft, normal bowel sounds. Absent: distended, tenderness, guarding, rebound, rigid Extremities exam: Present: normal inspection, full ROM, normal capillary refill. Absent: tenderness, pedal edema, joint swelling, calf tenderness Back exam: Present: normal inspection Neurological exam: Present: alert, oriented X3, CN II-XII intact Psychiatric exam: Present: normal affect, normal mood Skin exam: Present: warm, dry, intact, normal color. Absent: rash Course Vital Signs 09/15/21 13:20 Temperature 98.3 F Pulse Rate 53 L Respiratory 18 Rate Blood Pressure 98/80 O2 Sat by Pulse 90 L Oximetry - Reevaluation(s) Reevaluation #1: 09/15/21 13:34 The patient was seen in the emergency department by Dr. Ellis. Chest Pain MDM - MDM Imaging reviewed no definite acute findings. Patient's had no further chest pains this time I did discuss the findings with Dr. Conner patient be admitted for inpatient evaluation and treatment cardiology consultation Disposition Clinical Impression: Chest pain, Unstable angina pectoris Disposition: ADMITTED IP TO THIS HOSP Condition: Stable Referrals: Donita Darden MD [Primary Care Provider] - 1-2 days
[2021-09-15 13:49] LABS: Basophils % (A) 0 %; Eosinophils # (A) 0.1 k/uL (0-0.7); Eosinophils % (A) 1 %; HGB 15.7 gm/dL (13.0-17.5); Lymphocytes # (A) 0.9 k/uL (1.0-4.8); Lymphocytes % (A) 11 %; MCH 30.7 pg (25.0-35.0); MCHC 33.3 g/dL (31.0-37.0); MCV 92.3 fL (80.0-100.0); Mean Platelet Volume 7.4; Monocytes # (A) 0.4 k/uL (0-1.0); Monocytes % (A) 5 %; Neutrophils # (A) 6.8 k/uL (1.3-7.7); Neutrophils % (A) 82 %; Platelet Count 159 k/uL (150-450); RDW 13.1 % (11.5-15.5); WBC 8.3 k/uL (3.8-10.6)
--- NOTE | 2021-09-15 14:00 | XR ---
EXAMINATION TYPE: XR chest 2V DATE OF EXAM: 09/15/2021 COMPARISON: Chest x-ray August 27, 2021 HISTORY: Chest pain today. TECHNIQUE: Frontal and lateral views of the chest are obtained. FINDINGS: Overlying sternal wires and mediastinal clips are redemonstrated. Stable mild cardiomegaly . There are chronic emphysematous and parenchymal changes with new tiny bilateral pleural fluid colle ctions extending along major fissures bilaterally. The osseous structures remain demineralized. IMPRESSION: Chronic changes and mild cardiomegaly with new tiny bilateral pleural fluid collections.
[2021-09-15 14:02] LABS: Albumin 3.3 g/dL (3.5-5.0); Calcium 8.7 mg/dL (8.4-10.2); Magnesium 2.2 mg/dL (1.6-2.3); Potassium 4.6 mmol/L (3.5-5.1); Total Bilirubin 1.3 mg/dL (0.2-1.3); Total Protein 5.7 g/dL (6.3-8.2)
[2021-09-15 14:28] LABS: Partial Thromboplastin Time 23.7 sec (22.0-30.0); Prothrombin Time 10.3 sec (9.0-12.0)
[2021-09-15] MEDS ORDERED: NITROGLYCERIN SL TABS 0.4 MG TAB SUBLINGUAL PRN (14:54)
[2021-09-15] MEDS ORDERED: HEPARIN SODIUM 1,000 UN/ML (10ML VL) IV ONE (14:54)
[2021-09-15] MEDS ORDERED: IPRATROPIUM-ALBUTEROL 3 ML NEB INHALATION PRN (14:56)
[2021-09-15] MEDS ORDERED: HEPARIN SOD,PORK IN 0.45% NACL 25,000 UNIT in 0.45% NACL 1 250ML.BAG IV SCH (15:00)
[2021-09-15] MEDS ORDERED: SODIUM CHLORIDE 0.9% 500 ML 500 ML IV STA (16:18)
--- NOTE | 2021-09-15 16:20 | HP ---
HISTORY AND PHYSICAL DATE OF SERVICE: 09/15/2021 CHIEF COMPLAINT: Chest pain. HISTORY OF PRESENT ILLNESS: This 71-year-old gentleman, being followed by Dr. Donita Darden and Dr. Gage Weiner in the outpatient setting, was admitted recently last month with acute on chronic CHF exacerbation. Patient was treated medically. The patient also had chronic pulmonary embolism and right leg DVT. At that time apparently the patient had poor social support and ECF rehab was recommended, but the patient refused and the patient went home. Currently the patient is complaining of chest pain which is situated in the left side retrosternal area, and the patient is admitted for further evaluation and treatment. There is no history of any fever, rigor or chills at this time. BNP level was found to be 1000. Otherwise, the troponins are 0.019. The telemetry showed some bradycardia with PVCs and some irregularity, but in the rhythm strip it seems to be sinus bradycardia with probably some U waves. There is no history of any fever, rigor or chills at this time. PAST MEDICAL HISTORY: History of CAD, history of COPD, CVA, TIA, DVT, history of hypertension, history of hyperlipidemia, history of myocardial infarction, history of tremors, history of CAD, CABG. HOME MEDICATIONS: Prednisone, lisinopril, BuSpar, vitamin B1, Singulair, DuoNeb, Neurontin, Lasix, Pepcid, Lexapro, Lipitor, Eliquis, Proventil, Ventolin. ALLERGIES: NONE. FAMILY HISTORY: History of CVA, TIA. SOCIAL HISTORY: History of continued smoking. History of THC. REVIEW OF SYSTEMS: ENT: Diminished hearing. Diminished vision. CARDIOVASCULAR SYSTEM: As mentioned earlier. RESPIRATORY SYSTEM: As mentioned earlier. GI: As mentioned earlier. : No dysuria. NERVOUS SYSTEM: No numbness, weakness. ALLERGY/IMMUNOLOGY: No asthma or hay fever. MUSCULOSKELETAL: As mentioned earlier. HEMATOLOGY/ONCOLOGY: No history of anemia. ENDOCRINE: No history of diabetes or hypothyroidism. CONSTITUTIONAL: As mentioned earlier. DERMATOLOGY: Negative. RHEUMATOLOGY: Negative. PSYCHIATRY: As mentioned earlier. PHYSICAL EXAMINATION: Patient alert, oriented x3. Pulse is 53, blood pressure 98/80, respiration 18, temperature 98.3, pulse ox 98% on room air. HEENT: Conjunctivae normal. Oral mucosa moist. NECK: No jugular venous distention. No carotid bruit. No lymph node enlargement. CARDIOVASCULAR: S1, S2 muffled. No S3. No S4. RESPIRATION: Breath sounds diminished at the bases. A few scattered rhonchi. No crackles. ABDOMEN: Soft, non-tender. No mass palpable. LEGS: No edema. No swelling. NERVOUS SYSTEM: Higher functions as mentioned earlier. Moves all 4 limbs. No focal motor or sensory deficit. LYMPHATICS: No lymph node palpable in neck, axillae or groin. SKIN: No ulcer, rash, bleeding. JOINTS: No active deforming arthropathy. LABS: CBC within normal limits. Sodium 133, potassium 4.6 and glucose 123. ASSESSMENT: 1. Chest pain, possible unstable angina. 2. History of cardiomyopathy with chronic systolic dysfunction, ejection fraction 25% to 30%. 3. Chronic obstructive pulmonary disease. 4. Chronic pulmonary embolism and right leg deep vein thrombosis, on Eliquis. 5. Atrial fibrillation, recently diagnosed. 6. History of second-degree AV block, Mobitz type 1, 2:1 AV conduction block. 7. PVCs. 8. Sinus bradycardia. 9. Generalized weakness. 10.Poor social support. 11.History of nicotine dependence. 12.History of THC. 13.History of coronary artery disease. 14.Hypertension. 15.Hyperlipidemia. 16.History of tremors. 17.History of back pain, degenerative joint disease. 18.History of coronary artery disease, coronary artery bypass grafting. 19.History of anxiety, depression. 20.History of nicotine dependence. 21.Hyponatremia. 22.Increased random blood glucose. 23.Increased ALT. 24.FULL CODE. 25.Severe protein-calorie malnutrition with body mass index of 19.8. RECOMMENDATIONS AND DISCUSSION: In this 71-year-old gentleman who presented with multiple complex medical issues, we will monitor the patient closely, continue the current medications, continue symptomatic treatment. Cardiology consult to rule out myocardial infarction. Otherwise, I would recommend repeat labs. Guarded prognosis because of multiple complex medical issues. Further recommendations to follow. A copy of this dictation is being forwarded to Dr. Donita Darden, who is the primary physician. Home medications will be resumed once confirmed. COVID-19 test has been requested. MMODL / IJN: [id number] / [facility]
[2021-09-15] MEDS: SODIUM CHLORIDE 0.9% 1,000 ML IV SCH (16:23)
[2021-09-15] MEDS: THIAMINE 100 MG TAB PO SCH (16:32)
[2021-09-15] MEDS: FUROSEMIDE 40 MG TAB PO SCH (16:32)
[2021-09-15 17:47] LABS: Appearance,Urine Clear (Clear); Bilirubin,Urine Negative (Negative); Blood,Urine Small (Negative); Color,Urine Yellow; Glucose,Urine (UA) Negative (Negative); Hyaline Casts,Urine 1 /lpf (0-2); Ketones,Urine Negative (Negative); Leukocyte Esterase,Urine Negative (Negative); Nitrite,Urine Negative (Negative); PH, Urine 6.5 (5.0-8.0); Protein,Urine Trace (Negative); RBC,Urine 9 /hpf (0-5); Specific Gravity,Urine 1.013 (1.001-1.035); Urobilinogen,Urine <2.0 mg/dL (<2.0); WBC,Urine 1 /hpf (0-5)
[2021-09-15] MEDS ORDERED: LORazepam 2 MG/ML INJ IV STA (20:02)
[2021-09-15] MEDS: GABAPENTIN 100 MG CAP PO SCH (21:07)
[2021-09-15] MEDS: FAMOTIDINE 20 MG TAB PO SCH (21:07)
[2021-09-15] MEDS: MONTELUKAST 10 MG TAB PO SCH (21:07)
[2021-09-15] MEDS: APIXABAN 5 MG TAB PO SCH (21:07)
[2021-09-15] MEDS: busPIRone HCl 5 MG TAB PO SCH (22:10)
[2021-09-16] MEDS ORDERED: ASPIRIN 325 MG TAB PO SCH (09:00)
[2021-09-16] MEDS: busPIRone HCl 5 MG TAB PO SCH ×2 (09:31→20:10)
[2021-09-16] MEDS: APIXABAN 5 MG TAB PO SCH ×2 (09:32→20:10)
[2021-09-16] MEDS: FAMOTIDINE 20 MG TAB PO SCH ×2 (09:32→20:09)
[2021-09-16] MEDS: FUROSEMIDE 40 MG TAB PO SCH ×2 (09:32→16:51)
[2021-09-16] MEDS: lisinopriL 5 MG TAB PO SCH (09:37)
[2021-09-16] MEDS: ATORVASTATIN 80 MG TAB PO SCH (09:37)
[2021-09-16] MEDS: ASPIRIN 81 MG PO SCH (09:37)
[2021-09-16] MEDS: ESCITALOPRAM 5 MG TAB PO SCH (09:39)
[2021-09-16] MEDS: GABAPENTIN 100 MG CAP PO SCH ×2 (09:43→20:09)
[2021-09-16] MEDS: SPIRONOLACTONE 25 MG TAB PO SCH (09:43)
[2021-09-16] MEDS: THIAMINE 100 MG TAB PO SCH ×2 (09:43→16:30)
[2021-09-16] MEDS: SODIUM CHLORIDE 0.9% 1,000 ML IV SCH (11:46)
[2021-09-16 12:44] LABS: Chol/HDL Ratio 3.37 Ratio; HDL Cholesterol 48.9 mg/dL (40.00-60.00); LDL Cholesterol,Calculated 85.1 mg/dL (0.0-131.0)
--- NOTE | 2021-09-16 14:10 | CONS ---
CONSULTATION Mr. Mendoza is a 71-year-old male who has been followed by Dr. North in the past, has history of coronary artery disease, status post coronary artery bypass grafting, who presented with symptoms of dyspnea and generalized chest discomfort. Patient was in the hospital recently. He has a history of chronic obstructive lung disease. He underwent coronary artery bypass grafting in 2017 and underwent REID to LAD, saphenous vein graft to diagonal branch distal RCA. He also has a history of hyperlipidemia. He has been complaining of significant progression of dyspnea and had some peripheral edema that is better at this time. Unfortunately the patient continues to smoke. Patient has prior episode of signing out against medical advice and has not been always compliant with his medical regimen. He has a prior history of pulmonary embolism. He has generalized vague chest discomfort but is predominantly dyspneic and fatigued. He denies any dizziness or palpitations. No syncope. He denies any clear PND or orthopnea. His coronary risk factors are remarkable for hypertension, hyperlipidemia and smoking. He is nondiabetic. MEDICATION: His medication included Eliquis 5 mg twice a day, aspirin once a day, Lipitor 80 mg daily, Lexapro, Pepcid, Lasix 40 mg twice a day, Singulair 10 mg daily, thiamine, BuSpar, lisinopril 2.5 mg daily. Prior workup includes an echocardiogram that was obtained in August of this year that showed an ejection fraction of 25% to 30%, and that is unchanged compared to a study obtained in June. REVIEW OF SYSTEMS: RESPIRATORY SYSTEM: He had dyspnea on exertion, wheezing and cough. History of chronic obstructive lung disease. GI SYSTEM: No recent GI bleeding. No peptic ulcer disease. SYSTEM: No dysuria or hematuria. NERVOUS SYSTEM: Prior history of stroke. PHYSICAL EXAMINATION: He is a 71-year-old male, alert, oriented, in no apparent distress. Blood pressure 126/70 with a heart rate in the 60s. HEAD: Normocephalic. EYES: Sclerae anicteric. NECK: Good carotid upstroke. No bruit. LUNGS: Decreased air exchange. No wheezes. HEART: Regular rate and rhythm. S1, S2. No S3. Systolic murmur at the base. No diastolic murmur. ABDOMEN: Soft, nontender. Positive bowel sounds. No organomegaly. EXTREMITIES: No edema. Decreased distal pulses. LAB DATA: Troponin 0.019, 0.020, 0.022. His NT proBNP is 1000, which is much better than it was recently. IMPRESSION: 1. Symptoms of dyspnea on exertion, multifactorial; probably has an element of chronic obstructive pulmonary disease and chronic congestive heart failure. At this time the patient does not appear to be fluid-overloaded. 2. Chest discomfort. No evidence to suggest acute coronary syndrome. 3. History of chronic obstructive lung disease with chronic tobacco use. 4. Prior history of chronic pulmonary embolism. 5. Paroxysmal atrial fibrillation. 6. Chronic tobacco use. 7. Hyperlipidemia. RECOMMENDATIONS: From the cardiac standpoint, I will continue present therapy. I see no evidence of acute coronary syndrome at this time. I will add to his regimen Aldactone 25 mg daily and increase the dose of his lisinopril. Depending on his progress, further recommendations will be made. Thank you for this consult. Will follow with you. JOHNSON / DAVID: [id number] /
--- NOTE | 2021-09-16 15:53 | P.PN ---
Subjective Progress Note Date: 09/16/21 This is a 71-year-old male who was recently admitted to the emergency department for chest pain and cardiology evaluated the patient. Patient has had multiple readmissions with acute on chronic congestive heart failure exacerbation. Cardiology recommending to continue with current medical management and adjustments have been made to medications. Patient is maintained on anticoagulation for chronic pulmonary embolism and right leg DVT. Patient apparently has a guardian and is agreeable to rehab. Patient has had multiple falls prior to last admission 2 weeks ago and continues to be weak. PT/OT evaluated the patient recommending subacute rehab and social work is consulted for possible placement. Awaiting accepting facilities at this time. Review of systems: Constitutional: No reports of fatigue, fever, or chills Cardiovascular: No reports of chest pain or palpitations Respiratory: No reports of worsening shortness of breath, reports cough GI: No reports of nausea, vomiting, or diarrhea : No reports of dysuria or retention Neurovascular: Reports generalized weakness All medications have been reviewed Active Medications Albuterol/Ipratropium (Ipratropium-Albuterol 3 Ml Neb) 3 ml INHALATION RT-Q6H PRN PRN Reason: Shortness Of Breath Apixaban (Apixaban 5 Mg Tab) 5 mg PO BID [facility]; Protocol Last Admin: 09/16/21 09:32 Dose: 5 mg Documented by: Aspirin (Aspirin 81 Mg) 81 mg PO DAILY [facility] Last Admin: 09/16/21 09:37 Dose: 81 mg Documented by: Atorvastatin Calcium (Atorvastatin 80 Mg Tab) 80 mg PO DAILY [facility] Last Admin: 09/16/21 09:37 Dose: 80 mg Documented by: Buspirone HCl (Buspirone Hcl 5 Mg Tab) 7.5 mg PO BID [facility] Last Admin: 09/16/21 09:31 Dose: 7.5 mg Documented by: Escitalopram Oxalate (Escitalopram 5 Mg Tab) 5 mg PO DAILY [facility] Last Admin: 09/16/21 09:39 Dose: 5 mg Documented by: Famotidine (Famotidine 20 Mg Tab) 20 mg PO BID [facility] Last Admin: 09/16/21 09:32 Dose: 20 mg Documented by: Furosemide (Furosemide 40 Mg Tab) 40 mg PO BID@0900,1600 [facility] Last Admin: 09/16/21 09:32 Dose: 40 mg Documented by: Gabapentin (Gabapentin 100 Mg Cap) 200 mg PO BID [facility] Last Admin: 09/16/21 09:43 Dose: 200 mg Documented by: Sodium Chloride (Saline 0.9%) 1,000 mls @ 20 mls/hr IV .Q24H [facility] Last Admin: 09/16/21 11:46 Dose: Not Given Documented by: Lisinopril (Lisinopril 5 Mg Tab) 5 mg PO DAILY [facility] Last Admin: 09/16/21 09:37 Dose: 5 mg Documented by: Montelukast Sodium (Montelukast 10 Mg Tab) 10 mg PO HS [facility] Last Admin: 09/15/21 21:07 Dose: 10 mg Documented by: Nitroglycerin (Nitroglycerin Sl Tabs 0.4 Mg Tab) 0.4 mg SUBLINGUAL Q5M PRN PRN Reason: Chest Pain Spironolactone (Spironolactone 25 Mg Tab) 25 mg PO DAILY [facility] Last Admin: 09/16/21 09:43 Dose: 25 mg Documented by: Thiamine HCl (Thiamine 100 Mg Tab) 100 mg PO BID-W/MEALS [facility] Last Admin: 09/16/21 09:43 Dose: 100 mg Documented by: Physical exam: Gen: This is a 71-year-old male awake, alert and oriented 3, thin built, ill-appearing. Temp is 98.1F, pulse is 78, respirations are 18, blood pressure is 108/58, oxygen saturation is 100% on 2 L via nasal cannula HEENT: Head is atraumatic, normocephalic. Pupils equal, round. Sclerae is anicteric. NECK: Supple. No JVD. No lymphadenopathy. No thyromegaly. LUNGS: Breath sounds diminished bilaterally with some rhonchi noted throughout. No intercostal retractions. HEART: S1, S2 are muffled ABDOMEN: Soft. Bowel sounds are present. No masses. No tenderness. EXTREMITIES: No pedal edema. No calf tenderness. NEUROLOGICAL: Patient is awake, alert and oriented x3. Diffusely weak Assessment: Chest pain, possible unstable angina, ACS ruled out History of cardiomyopathy with chronic systolic dysfunction, ejection fraction 25-30% Chronic obstructive pulmonary disease Chronic pulmonary embolism and right leg DVT atrial fibrillation, recently diagnosed History of second-degree AV block, Mobitz type 1, 2-1 AV conduction block PVCs Sinus bradycardia Generalized weakness Poor social support history of nicotine dependence history of THC history of coronary artery disease Hypertension Hyperlipidemia History of tremors History of back pain, degenerative joint disease History of coronary artery disease, coronary artery bypass grafting History of anxiety, depression Continued ongoing nicotine dependence Hyponatremia increased random blood glucose Increased ALT Severe protein calorie malnutrition with a BMI of 19.8 Full code Plan: Recommend continue with current medications, management, and symptomatic treatment. Cardiology evaluated the patient recommending to continue with current medication management and adjustments being made with medications. No plans for any surgical interventions with cardiology at this time. Patient has been having multiple falls with continued weakness in the outpatient setting and has had multiple hospital readmissions related to this with poor social support. Per social work patient apparently does have a guardian and patient is agreeable to rehab and PT/OT evaluated the patient recommending subacute rehab on discharge. Social work following and working on accepting facilities with possible discharge in 24 hours. Due to multiple complex medical issues, prognosis is guarded. Objective - Vital Signs Vital signs: Vital Signs Temp 98.1 F 09/16/21 14:44 Pulse 78 09/16/21 14:44 Resp 18 09/16/21 14:53 BP 108/58 09/16/21 14:44 Pulse Ox 100 09/16/21 14:44 Intake & Output 09/15/21 09/16/21 09/16/21 18:59 06:59 18:59 Intake Total 480 Balance 480 Weight 66.224 kg 66.224 kg Intake: Oral 480 - Labs CBC & Chem 7: 09/15/21 13:26 09/15/21 13:26 Labs: Abnormal Lab Results - Last 24 Hours (Table) 09/15/21 09/16/21 Range/Units 16:17 03:45 Triglycerides 155.00 H (0.00-149.00) mg/dL Urine Protein Trace H (Negative) Urine Blood Small H (Negative) Urine RBC 9 H (0-5) /hpf
[2021-09-16] MEDS: MONTELUKAST 10 MG TAB PO SCH (20:10)
[2021-09-17 08:04] LABS: African American GFR (CKD) 73 (>60 ml/min/1.73 sqM); Anion Gap 4 mmol/L; Blood Urea Nitrogen 32 mg/dL (9-20); Calcium 8.4 mg/dL (8.4-10.2); Carbon Dioxide 32 mmol/L (22-30); Chloride 98 mmol/L (98-107); Glucose 99 mg/dL (74-99); Non-African American GFR(CKD) 63 (>60 ml/min/1.73 sqM); Sodium 134 mmol/L (137-145)
[2021-09-17] MEDS: ASPIRIN 81 MG PO SCH (08:26)
[2021-09-17] MEDS: busPIRone HCl 5 MG TAB PO SCH (08:27)
[2021-09-17] MEDS: GABAPENTIN 100 MG CAP PO SCH (08:27)
[2021-09-17] MEDS: THIAMINE 100 MG TAB PO SCH (08:28)
[2021-09-17] MEDS: APIXABAN 5 MG TAB PO SCH (08:28)
[2021-09-17] MEDS: ATORVASTATIN 80 MG TAB PO SCH (08:28)
[2021-09-17] MEDS: FUROSEMIDE 40 MG TAB PO SCH (08:29)
[2021-09-17] MEDS: SPIRONOLACTONE 25 MG TAB PO SCH (08:29)
[2021-09-17] MEDS: ESCITALOPRAM 5 MG TAB PO SCH (08:29)
[2021-09-17] MEDS: lisinopriL 5 MG TAB PO SCH (08:29)
[2021-09-17] MEDS: FAMOTIDINE 20 MG TAB PO SCH (08:29)
[2021-09-17 08:54] VITALS: RESP 16; TEMP 98.5
[2021-09-17 10:29] VITALS: BMI 19.8
[2021-09-17 12:17] VITALS: PULSE 68
--- NOTE | 2021-09-17 14:11 | P.DS ---
Providers Date of admission: 09/15/21 14:58 Expected date of discharge: 09/17/21 Attending physician: Vilma Ellis Consults: 09/15/21 14:54 Consult Physician Urgent Consulting Provider: Damaso Weiner Consult Reason/Comments: Chest pain Do you want consulting provider notified?: Yes Primary care physician: Donita Darden [facility] Course: Final diagnosis Chest pain, possible unstable angina, ACS ruled out History of cardiomyopathy with chronic systolic dysfunction, ejection fraction 25-30% Chronic obstructive pulmonary disease Chronic pulmonary embolism and right leg DVT atrial fibrillation, recently diagnosed History of second-degree AV block, Mobitz type 1, 2-1 AV conduction block PVCs Sinus bradycardia Generalized weakness Poor social support history of nicotine dependence history of THC history of coronary artery disease Hypertension Hyperlipidemia History of tremors History of back pain, degenerative joint disease History of coronary artery disease, coronary artery bypass grafting History of anxiety, depression Continued ongoing nicotine dependence Hyponatremia increased random blood glucose Increased ALT Severe protein calorie malnutrition with a BMI of 19.8 Full code Discharge disposition Patient is being discharged in a stable condition with guarded prognosis to [facility] for continued PT/OT therapy. Patient will follow-up noe Darden in the outpatient setting upon discharge. Patient is continue on Aldactone along with breathing inhalational treatments. Total time taken is greater than 35 minutes. Hospital course This is a 71-year-old male who was recently admitted to the emergency department for chest pain and cardiology evaluated the patient. Patient has had multiple readmissions with acute on chronic congestive heart failure exacerbation. Cardiology recommending to continue with current medical management and adjustments have been made to medications. Patient is maintained on anticoagulation for chronic pulmonary embolism and right leg DVT. Patient apparently has a guardian and is agreeable to rehab. Patient has had multiple falls prior to last admission 2 weeks ago and continues to be weak. PT/OT evaluated the patient recommending subacute rehab and social work is consulted for possible placement. Awaiting accepting facilities at this time. 09/17/2021 Patient is seen in follow-up and has been accepted at [facility] and will be going for continued PT/OT therapy for continued weakness and most recently multiple falls. Patient will follow-up with primary care provider along with pulmonary in the outpatient setting once discharged from [facility]. Patient was started on Aldactone by cardiology and will continue on other current meds as described below. Currently no reports of chest pain, worsening shortness of breath, or palpitations. Patient is afebrile. No reports of nausea or vomiting and patient is tolerating diet. Patient will be going to [facility] today. Guarded prognosis. On exam vital signs are stable. Cardio S1, S2 are muffled. Respiratory system shows diminished breath sounds at the bases with no some scattered rhonchi noted. Abdomen is soft and nontender. Nervous system shows diffuse weakness. Please refer to medication reconciliation sheet for a list of medications. Patient Condition at Discharge: Stable Plan - Discharge Summary Discharge Rx Participant: No New Discharge Prescriptions: New Spironolactone [Aldactone] 25 mg PO DAILY 30 Days #30 tab Continue Ipratropium-Albuterol Nebulize [Duoneb 0.5 mg-3 mg/3 ml Soln] 3 ml INHALATION RT-Q6H PRN PRN Reason: Shortness Of Breath Aspirin EC [Ecotrin Low Dose] 81 mg PO DAILY Montelukast Sodium [Singulair] 10 mg PO HS Gabapentin [Neurontin] 200 mg PO BID #12 cap Apixaban [Eliquis] 5 mg PO BID #60 tab busPIRone HCL [Buspar] 7.5 mg PO BID Famotidine [Pepcid] 20 mg PO BID 30 Days #60 tab Atorvastatin Calcium [Lipitor] 80 mg PO DAILY Albuterol Sulfate [Proair Hfa] 1 - 2 puff INHALATION RT-Q4H PRN PRN Reason: Shortness Of Breath Furosemide [Lasix] 40 mg PO BID@0900,1600 30 Days #60 tab Escitalopram [Lexapro] 5 mg PO DAILY 30 Days #30 tab Albuterol Nebulized [Ventolin Nebulized] 2.5 mg INHALATION RT-QID PRN #60 ml PRN Reason: Shortness Of Breath Or Wheezing Thiamine [Vitamin B-1] 100 mg PO BID-W/MEALS 30 Days #60 tab Changed lisinopriL [Zestril] 5 mg PO DAILY #60 tab Discharge Medication List Ipratropium-Albuterol Nebulize [Duoneb 0.5 mg-3 mg/3 ml Soln] 3 ml INHALATION RT-Q6H PRN 11/03/17 [History] Aspirin EC [Ecotrin Low Dose] 81 mg PO DAILY 01/20/18 [History] Atorvastatin Calcium [Lipitor] 80 mg PO DAILY 06/10/21 [History] Montelukast Sodium [Singulair] 10 mg PO HS 06/10/21 [History] Apixaban [Eliquis] 5 mg PO BID #60 tab 06/15/21 [Rx] Gabapentin [Neurontin] 200 mg PO BID #12 cap 06/15/21 [Rx] Albuterol Sulfate [Proair Hfa] 1 - 2 puff INHALATION RT-Q4H PRN 08/27/21 [History] busPIRone HCL [Buspar] 7.5 mg PO BID 08/27/21 [History] Albuterol Nebulized [Ventolin Nebulized] 2.5 mg INHALATION RT-QID PRN #60 ml 09/01/21 [Rx] Escitalopram [Lexapro] 5 mg PO DAILY 30 Days #30 tab 09/01/21 [Rx] Famotidine [Pepcid] 20 mg PO BID 30 Days #60 tab 09/01/21 [Rx] Furosemide [Lasix] 40 mg PO BID@0900,1600 30 Days #60 tab 09/01/21 [Rx] Thiamine [Vitamin B-1] 100 mg PO BID-W/MEALS 30 Days #60 tab 09/01/21 [Rx] Spironolactone [Aldactone] 25 mg PO DAILY 30 Days #30 tab 09/16/21 [Rx] lisinopriL [Zestril] 5 mg PO DAILY #60 tab 09/16/21 [Rx] Follow up Appointment(s)/Referral(s): Donita Darden MD [Primary Care Provider] - 1-2 days Ezequiel Bhatia MD [STAFF PHYSICIAN] - 1 Week Activity/Diet/Wound Care/Special Instructions: Patient is going to [facility] Activity as tolerated Continue heart healthy diet follow-up with primary care provider on discharge Follow-up with pulmonary outpatient Discharge Disposition: TRANSFER TO SNF/ECF
[2021-09-17 16:40] VITALS: BP 158/97
== END 2021-09-17 16:06 ==
LOC: EC 13:13 → 6NMEDSUR 14:58
PROVIDERS: ADMIT Hospitalist; ATTEND Hospitalist
DX: R07.2 Precordial pain (principal); I42.9 Cardiomyopathy, unspecified; I11.0 Hypertensive heart disease with heart failure; I50.22 Chronic systolic (congestive) heart failure; J43.9 Emphysema, unspecified; I48.0 Paroxysmal atrial fibrillation; Z20.822 Contact with and (suspected) exposure to COVID-19; E43 Unspecified severe protein-calorie malnutrition; Z68.1 Body mass index [BMI] 19.9 or less, adult; I27.82 Chronic pulmonary embolism; I25.10 Atherosclerotic heart disease of native coronary artery without angina pectoris; I82.401 Acute embolism and thrombosis of unspecified deep veins of right lower extremity; I49.3 Ventricular premature depolarization; I44.1 Atrioventricular block, second degree; I25.2 Old myocardial infarction; R29.6 Repeated falls; F17.200 Nicotine dependence, unspecified, uncomplicated; E78.5 Hyperlipidemia, unspecified; E87.1 Hypo-osmolality and hyponatremia; M19.90 Unspecified osteoarthritis, unspecified site; Z63.8 Other specified problems related to primary support group; K40.90 Unilateral inguinal hernia, without obstruction or gangrene, not specified as recurrent; F32.9 Major depressive disorder, single episode, unspecified; F41.9 Anxiety disorder, unspecified; Z79.82 Long term (current) use of aspirin; Z79.899 Other long term (current) drug therapy; Z79.01 Long term (current) use of anticoagulants; Z86.73 Personal history of transient ischemic attack (TIA), and cerebral infarction without residual deficits; Z95.1 Presence of aortocoronary bypass graft; Z87.01 Personal history of pneumonia (recurrent)
CPT/HCPCS: 96361; 96374; 99285; 36415; 93005 ×2; 97162; 97166; 83880; 80061; 80053; 80048; 83690; 83735; 84484; 85025; 85610; 85730; 81001; 87635; 71046; G0378 ×3; J2060

== ENCOUNTER 2021-10-13 04:44 | Inpatient (IN) | payer MEDICARE, OTHER ==
--- NOTE | 2021-10-13 04:56 | ED ---
Chest Pain HPI - General Chief Complaint: Chest Pain Stated Complaint: Chest Pain Time Seen by Provider: 10/13/21 04:46 Source: patient, EMS Mode of arrival: EMS Limitations: no limitations - Related Data Home Medications Medication Instructions Recorded Confirmed Ipratropium-Albuterol Nebulize 3 ml INHALATION RT-Q6H PRN 11/03/17 09/15/21 [Duoneb 0.5 mg-3 mg/3 ml Soln] Aspirin EC [Ecotrin Low Dose] 81 mg PO DAILY 01/20/18 09/15/21 Atorvastatin Calcium [Lipitor] 80 mg PO DAILY 06/10/21 09/15/21 Montelukast Sodium [Singulair] 10 mg PO HS 06/10/21 09/15/21 Albuterol Sulfate [Proair Hfa] 1 - 2 puff INHALATION RT-Q4H PRN 08/27/21 09/15/21 busPIRone HCL [Buspar] 7.5 mg PO BID 08/27/21 09/15/21 Previous Rx's Medication Instructions Recorded Apixaban [Eliquis] 5 mg PO BID #60 tab 06/15/21 Albuterol Nebulized [Ventolin 2.5 mg INHALATION RT-QID PRN #60 ml 09/01/21 Nebulized] Escitalopram [Lexapro] 5 mg PO DAILY 30 Days #30 tab 09/01/21 Famotidine [Pepcid] 20 mg PO BID 30 Days #60 tab 09/01/21 Furosemide [Lasix] 40 mg PO BID@0900,1600 30 Days #60 09/01/21 tab Thiamine [Vitamin B-1] 100 mg PO BID-W/MEALS 30 Days #60 09/01/21 tab Spironolactone [Aldactone] 25 mg PO DAILY 30 Days #30 tab 09/16/21 lisinopriL [Zestril] 5 mg PO DAILY #60 tab 09/16/21 Gabapentin [Neurontin] 200 mg PO BID #6 cap 09/17/21 Allergies Allergy/AdvReac Type Severity Reaction Status Date / Time No Known Allergies Allergy Verified 09/15/21 15:57 Review of Systems ROS Statement: Those systems with pertinent positive or pertinent negative responses have been documented in the HPI. ROS Other: All systems not noted in ROS Statement are negative. EKG Findings - EKG Comments: EKG Findings:: EKG sinus rhythm 82, RI 174 QRS 104 QTC 429 Past Medical History Past Medical History: Coronary Artery Disease (CAD), COPD, CVA/TIA, Deep Vein Thrombosis (DVT), Hyperlipidemia, Hypertension, Myocardial Infarction ([place]), Pneumonia, Pulmonary Embolus (PE) Additional Past Medical History / Comment(s): '"tremors", emphysema, back pain, Chronic PE Last Myocardial Infarction Date:: 12/2015 History of Any Multi-Drug Resistant Organisms: None Reported Past Surgical History: Coronary Bypass/CABG, Heart Catheterization, Hernia Repair, Tonsillectomy Additional Past Surgical History / Comment(s): rt inguinal hernia repair, 3-4 vessel cabg @ [facility] r side 03/24 Past Anesthesia/Blood Transfusion Reactions: No Reported Reaction Additional Past Anesthesia/Blood Transfusion Reaction / Comment(s): stated never had any blood transfusions Past Psychological History: Anxiety, Depression Smoking Status: Former smoker, Heavy tobacco smoker Past Alcohol Use History: None Reported Past Drug Use History: None Reported - Past Family History Mother Family Medical History: CVA/TIA Additional Family Medical History / Comment(s): Pt thinks both his parents had blood clots Father Additional Family Medical History / Comment(s): aaa repair General Exam Limitations: no limitations Course Vital Signs 10/13/21 04:45 Pulse Rate 77 Respiratory 18 Rate Blood Pressure 142/125 O2 Sat by Pulse 97 Oximetry Disposition Clinical Impression: COPD (chronic obstructive pulmonary disease), Chest pain Disposition: ADMITTED IP TO THIS HOSP Condition: Fair Is patient prescribed a controlled substance at d/c from ED?: No Referrals: Donita Darden MD [Primary Care Provider] - 1-2 days
[2021-10-13 05:43] LABS: Basophils % (A) 1 %; Eosinophils # (A) 0.2 k/uL (0-0.7); Eosinophils % (A) 3 %; HCT 37.8 % (39.0-53.0); Lymphocytes % (A) 30 %; MCH 30.8 pg (25.0-35.0); MCHC 34.5 g/dL (31.0-37.0); MCV 89.3 fL (80.0-100.0); Mean Platelet Volume 8.3; Monocytes # (A) 0.7 k/uL (0-1.0); Monocytes % (A) 11 %; Neutrophils # (A) 3.7 k/uL (1.3-7.7); Neutrophils % (A) 54 %; Platelet Count 152 k/uL (150-450); RBC 4.23 m/uL (4.30-5.90); RDW 13.4 % (11.5-15.5); WBC 6.8 k/uL (3.8-10.6)
[2021-10-13] MEDS ORDERED: NITROGLYCERIN SL TABS 0.4 MG TAB SUBLINGUAL PRN ×2 (05:44→08:03)
[2021-10-13] MEDS ORDERED: MORPHINE SULFATE 4 MG/ML SYRINGE IV PRN (05:44)
[2021-10-13] MEDS ORDERED: ASPIRIN 81 MG PO STA (05:44)
[2021-10-13] MEDS ORDERED: LORazepam 2 MG/ML INJ IV STA (05:47)
[2021-10-13] MEDS ORDERED: PROPRANOLOL 1 MG/ML 1 ML VIAL IV STA (05:47)
--- NOTE | 2021-10-13 05:52 | XR ---
EXAMINATION TYPE: XR chest 2V DATE OF EXAM: 10/13/2021 COMPARISON: 09/15/2021 HISTORY: Chest pain TECHNIQUE: 2 views FINDINGS: Heart size is normal. There is pulmonary hyperinflation with flattening of the diaphragm. T here is mild increased interstitial density at the lung bases. There are no hilar masses. There are s ternal wires. There is no pleural effusion. Bony thorax is intact. IMPRESSION: COPD and mild pulmonary fibrotic changes. No acute lung disease. No adverse change compar ed to old exam.
[2021-10-13 05:57] LABS: Partial Thromboplastin Time 24.2 sec (22.0-30.0)
[2021-10-13 05:58] LABS: Albumin 3.3 g/dL (3.5-5.0); Calcium 8.8 mg/dL (8.4-10.2); Potassium 4.2 mmol/L (3.5-5.1); Total Bilirubin 0.8 mg/dL (0.2-1.3); Total Protein 5.9 g/dL (6.3-8.2)
[2021-10-13] MEDS ORDERED: HEPARIN SODIUM 1,000 UN/ML (10ML VL) IV ONE (08:09)
[2021-10-13] MEDS ORDERED: HEPARIN SODIUM 1,000 UN/ML (10ML VL) IV PRN (08:09)
[2021-10-13] MEDS ORDERED: HEPARIN SOD,PORK IN 0.45% NACL 25,000 UNIT in 0.45% NACL 1 250ML.BAG IV SCH (08:15)
[2021-10-13] MEDS: SODIUM CHLORIDE 0.9% 1,000 ML IV SCH (08:21)
[2021-10-13] MEDS: ATORVASTATIN 80 MG TAB PO SCH (09:22)
[2021-10-13] MEDS: SPIRONOLACTONE 25 MG TAB PO SCH (09:23)
[2021-10-13] MEDS: FUROSEMIDE 40 MG TAB PO SCH ×2 (09:23→16:41)
[2021-10-13] MEDS: lisinopriL 5 MG TAB PO SCH (09:23)
[2021-10-13] MEDS: METOPROLOL TARTRATE 25 MG TAB PO SCH ×2 (09:23→20:43)
[2021-10-13] MEDS ORDERED: ALBUTEROL NEBULIZED 2.5 MG/3 ML INHALATION PRN ×2 (10:37)
[2021-10-13] MEDS ORDERED: IPRATROPIUM-ALBUTEROL 3 ML NEB INHALATION PRN (10:37)
--- NOTE | 2021-10-13 10:42 | P.HPIM ---
History of Present Illness Patient discussion [id number] male was hospitalized about a month ago came in with compensative chest pressure like sensation which started yesterday nonpleuritic not associated with food. Patient does have cardiac history and CABG in the past. Patient to was evaluated by cardiology. Patient does have history of DVT and pulmonary embolism in the past for which patient and anti- correlation which is being held and patient is on IV heparin at this time EKG did show some ST-T wave changes unsure whether these are old. Patient has mildly elevated troponins. Patient creatinine is around 1.1. Patient creatinine is around his baseline. Patient does have a severe ischemic cardiomyopathy EF of around 20. 30% presently not in heart failure exacerbation. Patient is a bit lethargic as he didn't sleep last night. REVIEW OF SYSTEMS: CONSTITUTIONAL: No fever, no malaise, no fatigue. HEENT: No recent visual problems or hearing problems. Denied any sore throat. CARDIOVASCULAR: No chest pain, orthopnea, PND, no palpitations, no syncope. PULMONARY: No shortness of breath, no cough, no hemoptysis. GASTROINTESTINAL: No diarrhea, no nausea, no vomiting, no abdominal pain. NEUROLOGICAL: No headaches, no weakness, no numbness. HEMATOLOGICAL: Denies any bleeding or petechiae. GENITOURINARY: Denies any burning micturition, frequency, or urgency. MUSCULOSKELETAL/RHEUMATOLOGICAL: Denies any joint pain, swelling, or any muscle pain. ENDOCRINE: Denies any polyuria or polydipsia. The rest of the 14-point review of systems is negative. PHYSICAL EXAMINATION: GENERAL: The patient is Zdreowsyand oriented x3, not in any acute distress. Thin built HEENT: Pupils are round and equally reacting to light. EOMI. No scleral icterus. No conjunctival pallor. Normocephalic, atraumatic. No pharyngeal erythema. No thyromegaly. CARDIOVASCULAR: S1 and S2 present. No murmurs, rubs, or gallops. PULMONARY: Chest is clear to auscultation, no wheezing or crackles. ABDOMEN: Soft, nontender, nondistended, normoactive bowel sounds. No palpable organomegaly. MUSCULOSKELETAL: No joint swelling or deformity. EXTREMITIES: No cyanosis, clubbing, or pedal edema. NEUROLOGICAL: Gross neurological examination did not reveal any focal deficits. SKIN: No rashes. Assessment and plan 1 chest pain: With mildly elevated troponins possibility of non-ST elevation myocardial infarction, cardiology evaluated the patient continue on IV heparin hold off on Eliquis for now as he is on IV heparin. -History of pulmonary embolism for which patient is on Eliquis which is being held as patient is on heparin next and-COPD without any acute exacerbation -Congestive heart failure chronic systolic dysfunction U for from 25-30% not in acute exacerbation at this time patient was resumed on oral Lasix -Coronary artery disease with CABG in the past - A. fib Presently rate controlled -Hypertension -Hyperlipidemia -Essential tremors for which patient is on propranolol which will be continued. DVT prophylaxis: Past Medical History Past Medical History: Coronary Artery Disease (CAD), COPD, CVA/TIA, Deep Vein Thrombosis (DVT), Hyperlipidemia, Hypertension, Myocardial Infarction ([place]), Pneumonia, Pulmonary Embolus ([place]) Additional Past Medical History / Comment(s): '"tremors", emphysema, back pain, Chronic PE Last Myocardial Infarction Date:: 12/2015 History of Any Multi-Drug Resistant Organisms: None Reported Past Surgical History: Coronary Bypass/CABG, Heart Catheterization, Hernia Repa ir, Tonsillectomy Additional Past Surgical History / Comment(s): rt inguinal hernia repair, 3-4 vessel cabg @ [facility] r side 03/24 Past Anesthesia/Blood Transfusion Reactions: No Reported Reaction Additional Past Anesthesia/Blood Transfusion Reaction / Comment(s): stated never had any blood transfusions Past Psychological History: Anxiety, Depression Smoking Status: Former smoker, Heavy tobacco smoker Past Alcohol Use History: None Reported Past Drug Use History: None Reported - Past Family History Mother Family Medical History: CVA/TIA Additional Family Medical History / Comment(s): Pt thinks both his parents had blood clots Father Additional Family Medical History / Comment(s): aaa repair Medications and Allergies Home Medications Medication Instructions Recorded Confirmed Type Ipratropium-Albuterol Nebulize 3 ml INHALATION RT-Q6H PRN 11/03/17 10/13/21 History [Duoneb 0.5 mg-3 mg/3 ml Soln] Atorvastatin Calcium [Lipitor] 80 mg PO HS 06/10/21 10/13/21 History Montelukast Sodium [Singulair] 10 mg PO HS 06/10/21 10/13/21 History Apixaban [Eliquis] 5 mg PO BID #60 tab 06/15/21 10/13/21 Rx Albuterol Sulfate [Proair Hfa] 1 - 2 puff INHALATION RT-Q4H PRN 08/27/21 10/13/21 History Albuterol Nebulized [Ventolin 2.5 mg INHALATION RT-QID PRN #60 ml 09/01/21 10/13/21 Rx Nebulized] Famotidine [Pepcid] 20 mg PO BID 30 Days #60 tab 09/01/21 10/13/21 Rx Furosemide [Lasix] 40 mg PO BID@0900,1600 30 Days #60 09/01/21 10/13/21 Rx tab Spironolactone [Aldactone] 25 mg PO DAILY 30 Days #30 tab 09/16/21 10/13/21 Rx lisinopriL [Zestril] 5 mg PO DAILY #60 tab 09/16/21 10/13/21 Rx Gabapentin [Neurontin] 200 mg PO BID #6 cap 09/17/21 10/13/21 Rx Aspirin 81 mg PO DAILY 10/13/21 10/13/21 History Escitalopram [Lexapro] 5 mg PO DAILY@0800 10/13/21 10/13/21 History LORazepam [Ativan] 0.5 mg PO Q8H PRN 10/13/21 10/13/21 History Nitroglycerin Sl Tabs [Nitrostat] 0.4 mg SUBLINGUAL Q5M PRN 10/13/21 10/13/21 H istory Thiamine [Vitamin B-1] 100 mg PO BID 10/13/21 10/13/21 History busPIRone HCl [Buspar] 10 mg PO BID 10/13/21 10/13/21 History Allergies Allergy/AdvReac Type Severity Reaction Status Date / Time No Known Allergies Allergy Verified 10/13/21 06:48 Physical Exam Vitals: Vital Signs Temp Pulse Resp BP Pulse Ox 10/13/21 08:56 55 L 16 107/64 99 10/13/21 08:14 98 F 69 20 147/113 100 10/13/21 04:45 77 18 142/125 97 Intake and Output 10/12/21 10/13/21 10/13/21 22:59 06:59 14:59 Other: Weight 66.224 kg Results CBC & Chem 7: 10/13/21 04:54 10/13/21 04:54 Labs: Abnormal Lab Results - Last 24 Hours (Table) 10/13/21 10/13/21 10/13/21 Range/Units 04:54 04:54 04:54 RBC 4.23 L (4.30-5.90) m/uL Hct 37.8 L (39.0-53.0) % Sodium 133 L (137-145) mmol/L BUN 34 H (9-20) mg/dL ALT 68 H (4-49) U/L Troponin I 0.096 H* (0.000-0.034) ng/mL Total Protein 5.9 L (6.3-8.2) g/dL Albumin 3.3 L (3.5-5.0) g/dL 10/13/21 Range/Units 07:43 RBC (4.30-5.90) m/uL Hct (39.0-53.0) % Sodium (137-145) mmol/L BUN (9-20) mg/dL ALT (4-49) U/L Troponin I 0.084 H* (0.000-0.034) ng/mL Total Protein (6.3-8.2) g/dL Albumin (3.5-5.0) g/dL
--- NOTE | 2021-10-13 11:37 | ECHOF ---
Referral Reason:chest pain, elevated troponin MEASUREMENTS -------- HEIGHT: 177.8 cm WEIGHT: 66.2 kg BP: IVSd: 1.0 cm (0.6 - 1.1) LVIDd: 5.0 cm (3.9 - 5.3) LVPWd: 1.0 cm (0.6 - 1.1) EDV(Teich): 118 ml IVSs: 1.4 cm LVIDs: 3.8 cm LVPWs: 1.4 cm %IVS Thck: 40 % ESV(Teich): 61 ml EF(Teich): 49 % %FS: 25 % SV(Teich): 58 ml FINDINGS -------- Limited Study The left ventricular size is normal. Left ventricular wall thickness is normal. There is severe g lobal hypokinesis of LV . Overall left ventricular systolic function is severely impaired with, an EF between 20 - 25 %. There is no pericardial effusion. CONCLUSIONS -------- 1. The left ventricular size is normal. 2. Left ventricular wall thickness is normal. 3. There is severe global hypokinesis of LV . 4. Overall left ventricular systolic function is severely impaired with, an EF between 20 - 25 %. 5. There is no pericardial effusion. COUNSELING DEPARTMENT CHAIR: Marianela Norris RD
--- NOTE | 2021-10-13 12:01 | P.CRDCN ---
History of Present Illness Consult date: 10/13/21 History of present illness: HISTORY OF PRESENT ILLNESS: This is a 71-year-old male with a past medical history significant for coronary artery disease with previous CABG 3, carotid stenosis, ischemic cardio myopathy with ejection fraction of 45%, hypertension, hyperlipidemia, and nicotine dependence. Patient used to follow in the office with Dr. North but has not been seen in the office since 2018. We have been asked to see the patient in consultation for chest pain. Patient examined at the bedside. Patient states yesterday he was sleeping in bed when he woke up around 2:00 in the morning with chest discomfort. He describes the pain as a sharp pain in the middle of his chest. He reports having some radiation to his left arm that was very brief. He denied any diaphoresis. Patient states he is mildly short of breath which is his baseline as he has COPD. He states he does not wear oxygen at home. He reports that he quit smoking approximately 4 weeks ago. At the time of our examination, the patient denies any chest pain or pressure. EKG reveals sinus mechanism with nonspecific ST-T wave changes Chest xray COPD and mild pulmonary for prior changes. No acute lung disease. No adverse change compared to old exam. Laboratory data: WBC 6.8. Hemoglobin 13.0. Platelet count 152. Sodium 133. Potassium 4.2. BUN 34. Creatinine 1.15. Magnesium 2.0. ProBNP 1780. Troponin 0.096. 0.084. Current home cardiac medications include Lasix 40 mg twice a day, Eliquis 5 mg twice a day, lisinopril 5 mg daily, Lipitor 80 mg at night, aspirin 81 mg daily, and Aldactone 25 mg daily Most recent echocardiogram obtained in August 2021 revealed ejection fraction 25-30%, mild mitral regurgitation, mild tricuspid regurgitation, and mild pulmonary retention REVIEW OF SYSTEMS: At the time of my exam: CONSTITUTIONAL: Denies fever or chills. HEENT: Denies blurred vision, vision changes, or eye pain. Denies hemoptysis CARDIOVASCULAR: Denies chest pain. Denies orthopnea. Denies PND. Denies p alpitations RESPIRATORY: Denies shortness of breath. GASTROINTESTINAL: Denies abdominal pain. Denies nausea or vomiting. HEMATOLOGIC: Denies bleeding disorders. GENITOURINARY: Denies any blood in urine. SKIN: Denies pruitis. Denies rash. PHYSICAL EXAM: VITAL SIGNS: Reviewed. GENERAL: Well-developed in no acute distress. HEENT: Head is normocephalic. Pupils are equal, round. Sclerae anicteric. Mucous membranes of the mouth are moist. Neck supple. No JVD or thyromegaly LUNGS: Respirations even and unlabored. Lungs essentially clear to auscultation bilaterally. HEART: Regular rate and rhythm. S1 and S2 heard. ABDOMEN: Soft. Nondistended. Nontender. EXTREMITIES: Normal range of motion. No clubbing or cyanosis. Peripheral pulses intact. No lower extremity edema NEUROLOGIC: Awake and alert. Oriented x 3. ASSESSMENT: Chest pain with abnormal troponins, possible NSTEMI Ischemic cardiomyopathy Coronary artery disease with previous CABG 3 Chronic systolic congestive heart failure History of DVT, on anticoagulation with Eliquis Hypertension Hyperlipidemia Nicotine dependence PLAN: Obtain 2D echo to assess cardiac structure and function Trend troponins Hold Eliquis. Begin IV heparin. Resume home cardiac medications Further recommendations pending patient course Nurse practitioner note has been reviewed by physician. Signing provider agrees with the documented findings, assessment, and plan of care. Past Medical History Past Medical History: Coronary Artery Disease (CAD), COPD, CVA/TIA, Deep Vein Thrombosis (DVT), Hyperlipidemia, Hypertension, Myocardial Infarction (MS), Pneumonia, Pulmonary Embolus (PE) Additional Past Medical History / Comment(s): '"tremors", emphysema, back pain, Chronic PE Last Myocardial Infarction Date:: 12/2015 History of Any Multi-Drug Resistant Organisms: None Reported Past Surgical History: Coronary Bypass/CABG, Heart Catheterization, Hernia Repair, Tonsillectomy Additional Past Surgical History / Comment(s): rt inguinal hernia repair, 3-4 vessel cabg @ [facility] r side 03/24 Past Anesthesia/Blood Transfusion Reactions: No Reported Reaction Additional Past Anesthesia/Blood Transfusion Reaction / Comment(s): stated never had any blood transfusions Past Psychological History: Anxiety, Depression Smoking Status: Former smoker, Heavy tobacco smoker Past Alcohol Use History: None Reported Past Drug Use History: None Reported - Past Family History Mother Family Medical History: CVA/TIA Additional Family Medical History / Comment(s): Pt thinks both his parents had blood clots Father Additional Family Medical History / Comment(s): aaa repair Medications and Allergies Home Medications Medication Instructions Recorded Confirmed Type Ipratropium-Albuterol Nebulize 3 ml INHALATION RT-Q6H PRN 11/03/17 10/13/21 History [Duoneb 0.5 mg-3 mg/3 ml Soln] Atorvastatin Calcium [Lipitor] 80 mg PO HS 06/10/21 10/13/21 History Montelukast Sodium [Singulair] 10 mg PO HS 06/10/21 10/13/21 History Apixaban [Eliquis] 5 mg PO BID #60 tab 06/15/21 10/13/21 Rx Albuterol Sulfate [Proair Hfa] 1 - 2 puff INHALATION RT-Q4H PRN 08/27/21 10/13/21 History Albuterol Nebulized [Ventolin 2.5 mg INHALATION RT-QID PRN #60 ml 09/01/21 10/13/21 Rx Nebulized] Famotidine [Pepcid] 20 mg PO BID 30 Days #60 tab 09/01/21 10/13/21 Rx Furosemide [Lasix] 40 mg PO BID@0900,1600 30 Days #60 09/01/21 10/13/21 Rx tab Spironolactone [Aldactone] 25 mg PO DAILY 30 Days #30 tab 09/16/21 10/13/21 Rx lisinopriL [Zestril] 5 mg PO DAILY #60 tab 09/16/21 10/13/21 Rx Gabapentin [Neurontin] 200 mg PO BID #6 cap 09/17/21 10/13/21 Rx Aspirin 81 mg PO DAILY 10/13/21 10/13/21 History Escitalopram [Lexapro] 5 mg PO DAILY@0800 10/13/21 10/13/21 History LORazepam [Ativan] 0.5 mg PO Q8H PRN 10/13/21 10/13/21 History Nitroglycerin Sl Tabs [Nitrostat] 0.4 mg SUBLINGUAL Q5M PRN 10/13/21 10/13/21 History Thiamine [Vitamin B-1] 100 mg PO BID 10/13/21 10/13/21 History busPIRone HCl [Buspar] 10 mg PO BID 10/13/21 10/13/21 History Allergies Allergy/AdvReac Type Severity Reaction Status Date / Time No Known Allergies Allergy Verified 10/13/21 06:48 Physical Exam Vitals: Vital Signs Pulse Resp BP Pulse Ox 10/13/21 04:45 77 18 142/125 97 Intake and Output 10/12/21 10/13/21 10/13/21 22:59 06:59 14:59 Other: Weight 66.224 kg Results 10/13/21 04:54 10/13/21 04:54 Cardiac Enzymes 10/13/21 10/13/21 Range/Units 04:54 04:54 AST 46 (17-59) U/L Troponin I 0.096 H* (0.000-0.034) ng/mL Coagulation 10/13/21 Range/Units 04:54 PT 11.0 (9.0-12.0) sec APTT 24.2 (22.0-30.0) sec CBC 10/13/21 Range/Units 04:54 WBC 6.8 (3.8-10.6) k/uL RBC 4.23 L (4.30-5.90) m/uL Hgb 13.0 (13.0-17.5) gm/dL Hct 37.8 L (39.0-53.0) % Plt Count 152 (150-450) k/uL Comprehensive Metabolic Panel 10/13/21 Range/Units 04:54 Sodium 133 L (137-145) mmol/L Potassium 4.2 (3.5-5.1) mmol/L Chloride 98 (98-107) mmol/L Carbon Dioxide 29 (22-30) mmol/L BUN 34 H (9-20) mg/dL Creatinine 1.15 (0.66-1.25) mg/dL Glucose 97 (74-99) mg/dL Calcium 8.8 (8.4-10.2) mg/dL AST 46 (17-59) U/L ALT 68 H (4-49) U/L Alkaline Phosphatase 85 (38-126) U/L Total Protein 5.9 L (6.3-8.2) g/dL Albumin 3.3 L (3.5-5.0) g/dL Current Medications Generic Name Dose Route Start Last Admin Trade Name Freq PRN Reason Stop Dose Admin Aspirin 81 mg 10/14/21 09:00 Aspirin 325 Mg Tab PO DAILY [facility] Atorvastatin Calcium 80 mg 10/13/21 09:00 Atorvastatin 80 Mg Tab PO DAILY [facility] Furosemide 40 mg 10/13/21 09:00 Furosemide 40 Mg Tab PO BID@0900,1600 [facility] Sodium Chloride 1,000 mls @ 20 mls/hr 10/13/21 05:45 Saline 0.9% IV .Q24H JYOTSNA Lisinopril 5 mg 10/13/21 09:00 Lisinopril 2.5 Mg Tab PO DAILY [facility] Morphine Sulfate 4 mg 10/13/21 05:44 Morphine Sulfate 4 Mg/Ml Syringe IV Q4HR PRN Chest Pain Nitroglycerin 0.4 mg 10/13/21 05:44 Nitroglycerin Sl Tabs 0.4 Mg Tab SUBLINGUAL Q5M PRN Chest Pain Nitroglycerin 0.4 mg 10/13/21 08:03 Nitroglycerin Sl Tabs 0.4 Mg Tab SUBLINGUAL Q5M PRN Chest Pain Spironolactone 25 mg 10/13/21 09:00 Spironolactone 25 Mg Tab PO DAILY [facility] Intake and Output 10/12/21 10/13/21 10/13/21 22:59 06:59 14:59 Other: Weight 66.224 kg 10/13/21 04:54 10/13/21 04:54
[2021-10-13] MEDS: LORazepam 0.5 MG TAB PO PRN (18:26)
[2021-10-13] MEDS: GABAPENTIN 100 MG CAP PO SCH (20:44)
[2021-10-13] MEDS: FAMOTIDINE 20 MG TAB PO SCH (20:44)
[2021-10-13] MEDS: busPIRone HCl 10 MG TAB PO SCH (20:44)
[2021-10-13] MEDS ORDERED: MONTELUKAST 10 MG TAB PO SCH (21:00)
[2021-10-14 07:24] LABS: Basophils % (A) 1 %; Eosinophils # (A) 0.2 k/uL (0-0.7); Eosinophils % (A) 3 %; HCT 42.4 % (39.0-53.0); HGB 13.8 gm/dL (13.0-17.5); Lymphocytes # (A) 1.8 k/uL (1.0-4.8); Lymphocytes % (A) 25 %; MCH 31.1 pg (25.0-35.0); MCHC 32.5 g/dL (31.0-37.0); Monocytes # (A) 0.6 k/uL (0-1.0); Monocytes % (A) 8 %; Neutrophils # (A) 4.3 k/uL (1.3-7.7); Neutrophils % (A) 61 %; Platelet Count 162 k/uL (150-450); RBC 4.43 m/uL (4.30-5.90); RDW 14.2 % (11.5-15.5); WBC 7.1 k/uL (3.8-10.6)
[2021-10-14 07:31] LABS: MCV 95.7 fL (80.0-100.0)
[2021-10-14] MEDS ORDERED: ESCITALOPRAM 5 MG TAB PO SCH (08:00)
[2021-10-14] MEDS: GABAPENTIN 100 MG CAP PO SCH (08:51)
[2021-10-14] MEDS: FUROSEMIDE 40 MG TAB PO SCH ×2 (08:51→18:09)
[2021-10-14] MEDS: LORazepam 0.5 MG TAB PO PRN (08:51)
[2021-10-14] MEDS: SPIRONOLACTONE 25 MG TAB PO SCH (08:51)
[2021-10-14] MEDS: lisinopriL 5 MG TAB PO SCH (08:51)
[2021-10-14] MEDS: ATORVASTATIN 80 MG TAB PO SCH (08:52)
[2021-10-14] MEDS: METOPROLOL TARTRATE 25 MG TAB PO SCH (08:52)
[2021-10-14] MEDS: FAMOTIDINE 20 MG TAB PO SCH (08:52)
[2021-10-14] MEDS: busPIRone HCl 10 MG TAB PO SCH (08:52)
[2021-10-14 08:57] VITALS: RESP 16; TEMP 98.9
[2021-10-14] MEDS ORDERED: ASPIRIN 325 MG TAB PO SCH (09:00)
[2021-10-14] MEDS ORDERED: ASPIRIN 81 MG PO SCH (09:00)
[2021-10-14 10:42] LABS: Chol/HDL Ratio 2.88 Ratio; LDL Cholesterol,Calculated 83.3 mg/dL (0.0-131.0); VLDL Calculation 14.56 mg/dL (5.00-40.00)
--- NOTE | 2021-10-14 11:28 | P.PN ---
Subjective Progress Note Date: 10/14/21 HISTORY OF PRESENT ILLNESS: This is a 71-year-old male with a past medical history significant for coronary artery disease with previous CABG 3, carotid stenosis, ischemic cardio myopathy with ejection fraction of 45%, hypertension, hyperlipidemia, and nicotine dependence. Patient used to follow in the office with Dr. North but has not been seen in the office since 2018. We have been asked to see the patient in consultation for chest pain. Patient examined at the bedside. Patient states yesterday he was sleeping in bed when he woke up around 2:00 in the morning with chest discomfort. He describes the pain as a sharp pain in the middle of his chest. He reports having some radiation to his left arm that was very brief. He denied any diaphoresis. Patient states he is mildly short of breath which is his baseline as he has COPD. He states he does not wear oxygen at home. He reports that he quit smoking approximately 4 weeks ago. At the time of our examination, the patient denies any chest pain or pressure. EKG reveals sinus mechanism with nonspecific ST-T wave changes Chest xray COPD and mild pulmonary for prior changes. No acute lung disease. No adverse change compared to old exam. Laboratory data: WBC 6.8. Hemoglobin 13.0. Platelet count 152. Sodium 133. Potassium 4.2. BUN 34. Creatinine 1.15. Magnesium 2.0. ProBNP 1780. Troponin 0.096. 0.084. Current home cardiac medications include Lasix 40 mg twice a day, Eliquis 5 mg twice a day, lisinopril 5 mg daily, Lipitor 80 mg at night, aspirin 81 mg daily, and Aldactone 25 mg daily Most recent echocardiogram obtained in August 2021 revealed ejection fraction 25-30%, mild mitral regurgitation, mild tricuspid regurgitation, and mild pulmonary retention 10-14-21 Patient examined this morning at the bedside. Patient reports mild SOB, which is his baseline. He denies any further episodes of chest pain. Echo completed with EF 20-25% with severe global hypokinesis. Vital signs stable. PHYSICAL EXAM: VITAL SIGNS: Reviewed. GENERAL: Well-developed in no acute distress. HEENT: Head is normocephalic. Pupils are equal, round. Sclerae anicteric. Mucous membranes of the mouth are moist. Neck supple. No JVD or thyromegaly LUNGS: Respirations even and unlabored. Lungs diminished with expiratory wheezing noted. HEART: Regular rate and rhythm. S1 and S2 heard. EXTREMITIES: Normal range of motion. No clubbing or cyanosis. Peripheral pulses intact. No lower extremity edema ASSESSMENT: Chest pain with abnormal troponins, possible NSTEMI Ischemic cardiomyopathy Coronary artery disease with previous CABG 3 Chronic systolic congestive heart failure History of DVT, on anticoagulation with Eliquis Hypertension Hyperlipidemia Nicotine dependence PLAN: Discussed options of medical management versus stress test versus cardiac cath. Patient opting for medical management Discontinue IV heparin. Resume Eliquis. Add Imdur 30mg daily Increase activity today If patient remains asymptomatic, he may be discharged home this afternoon and follow up with Dr. Olivares outpatient Nurse practitioner note has been reviewed by physician. Signing provider agrees with the documented findings, assessment, and plan of care. Objective - Vital Signs Vital signs: Vital Signs Temp 98.9 F 10/14/21 08:00 Pulse 54 L 10/14/21 08:00 Resp 16 10/14/21 08:00 BP 106/62 10/14/21 08:00 Pulse Ox 87 L 10/14/21 08:00 Intake & Output 10/13/21 10/14/21 10/14/21 18:59 06:59 18:59 Intake Total 542.914 Output Total 480 650 Balance 62.914 -650 Weight 66.224 kg 63.4 kg Intake: Intake, IV Titration 62.914 Amount Heparin Sod,Pork in 0.45% 62.914 NaCl 25,000 unit In 0.45 % NaCl 1 250ml.bag @ 12 UNITS/KG/HR 7.947 mls/hr IV .Q24H [facility] Rx#: [id number] Oral 480 Output: Urine 480 650 - Labs CBC & Chem 7: 10/14/21 05:19 10/13/21 04:54 Labs: Abnormal Lab Results - Last 24 Hours (Table) 10/13/21 10/13/21 10/14/21 Range/Units 11:17 15:06 05:19 APTT 53.3 H 46.0 H (22.0-30.0) sec Troponin I 0.087 H* (0.000-0.034) ng/mL
[2021-10-14] MEDS ORDERED: ISOSORBIDE MONONITRATE ER 30 MG TAB.ER.24H PO SCH (11:30)
[2021-10-14] MEDS ORDERED: APIXABAN 5 MG TAB PO SCH (11:30)
[2021-10-14] MEDS: SODIUM CHLORIDE 0.9% 1,000 ML IV SCH (12:36)
[2021-10-14 13:04] VITALS: BMI 18.9
--- NOTE | 2021-10-14 17:11 | P.DS ---
Providers Date of admission: 10/14/21 09:27 Expected date of discharge: 10/14/21 Attending physician: Vilma Ellis Consults: 10/13/21 05:44 Consult Physician Urgent Consulting Provider: Tita Smallwood Consult Reason/Comments: cp Do you want consulting provider notified?: Yes Primary care physician: [facility] Hospital Course: 71-year-old male was hospitalized about a month ago came in with compensative chest pressure like sensation which started yesterday nonpleuritic not associated with food. Patient does have cardiac history and CABG in the past. Patient to was evaluated by cardiology. Patient does have history of DVT and pulmonary embolism in the past for which patient and anti-correlation which is being held and patient is on IV heparin at this time EKG did show some ST-T wave changes unsure whether these are old. Patient has mildly elevated troponins. Patient creatinine is around 1.1. Patient creatinine is around his baseline. Patient does have a severe ischemic cardiomyopathy EF of around 20. 30% presently not in heart failure exacerbation. Patient is a bit lethargic as he didn't sleep last night. Assessment and plan 1 chest pain: With mildly elevated troponins possibility of non-ST elevation myocardial infarction, cardiology evaluated the patient continue on IV heparin hold off on Eliquis for now as he is on IV heparin. -History of pulmonary embolism for which patient is on Eliquis which is being held as patient is on heparin next and-COPD without any acute exacerbation -Congestive heart failure chronic systolic dysfunction U for from 25-30% not in acute exacerbation at this time patient was resumed on oral Lasix -Coronary artery disease with CABG in the past - A. fib Presently rate controlled -Hypertension -Hyperlipidemia -Essential tremors for which patient is on propranolol which will be continued. Patient was evaluated by cardiology and possibility of possible NST [place] was discussed with patient the options given for medical management versus stress test versus cardiac catheterization; at this point patient opted for medical management; IV heparin is discontinued and home dose of Eliquis is resumed; cardiology recommending to add Imdur 30 mg daily; increase activity as recommended with recommendations to discharge if patient remains chest pain-free No further complaints of chest pain; patient is stable for discharge Patient Condition at Discharge: Fair Plan - Discharge Summary Discharge Rx Participant: No New Discharge Prescriptions: New Isosorbide Mononitrate ER [Imdur] 30 mg PO DAILY #30 tablet Metoprolol Tartrate [Lopressor] 25 mg PO BID #60 tab Apixaban [Eliquis] 5 mg PO BID tab Continue Ipratropium-Albuterol Nebulize [Duoneb 0.5 mg-3 mg/3 ml Soln] 3 ml INHALATION RT-Q6H PRN PRN Reason: Shortness Of Breath Or Wheezing Montelukast Sodium [Singulair] 10 mg PO HS Apixaban [Eliquis] 5 mg PO BID #60 tab Famotidine [Pepcid] 20 mg PO BID 30 Days #60 tab Spironolactone [Aldactone] 25 mg PO DAILY 30 Days #30 tab busPIRone HCl [Buspar] 10 mg PO BID Escitalopram [Lexapro] 5 mg PO DAILY@0800 Aspirin 81 mg PO DAILY Atorvastatin Calcium [Lipitor] 80 mg PO HS Albuterol Sulfate [Proair Hfa] 1 - 2 puff INHALATION RT-Q4H PRN PRN Reason: Shortness Of Breath Furosemide [Lasix] 40 mg PO BID@0900,1600 30 Days #60 tab Albuterol Nebulized [Ventolin Nebulized] 2.5 mg INHALATION RT-QID PRN #60 ml PRN Reason: Shortness Of Breath Or Wheezing lisinopriL [Zestril] 5 mg PO DAILY #60 tab Gabapentin [Neurontin] 200 mg PO BID #6 cap Nitroglycerin Sl Tabs [Nitrostat] 0.4 mg SUBLINGUAL Q5M PRN PRN Reason: Chest Pain LORazepam [Ativan] 0.5 mg PO Q8H PRN PRN Reason: Anxiety Thiamine [Vitamin B-1] 100 mg PO BID Discharge Medication List Ipratropium-Albuterol Nebulize [Duoneb 0.5 mg-3 mg/3 ml Soln] 3 ml INHALATION RT-Q6H PRN 11/03/17 [History] Atorvastatin Calcium [Lipitor] 80 mg PO HS 06/10/21 [History] Montelukast Sodium [Singulair] 10 mg PO HS 06/10/21 [History] Apixaban [Eliquis] 5 mg PO BID #60 tab 06/15/21 [Rx] Albuterol Sulfate [Proair Hfa] 1 - 2 puff INHALATION RT-Q4H PRN 08/27/21 [History] Albuterol Nebulized [Ventolin Nebulized] 2.5 mg INHALATION RT-QID PRN #60 ml 09/01/21 [Rx] Famotidine [Pepcid] 20 mg PO BID 30 Days #60 tab 09/01/21 [Rx] Furosemide [Lasix] 40 mg PO BID@0900,1600 30 Days #60 tab 09/01/21 [Rx] Spironolactone [Aldactone] 25 mg PO DAILY 30 Days #30 tab 09/16/21 [Rx] lisinopriL [Zestril] 5 mg PO DAILY #60 tab 09/16/21 [Rx] Gabapentin [Neurontin] 200 mg PO BID #6 cap 09/17/21 [Rx] Aspirin 81 mg PO DAILY 10/13/21 [History] Escitalopram [Lexapro] 5 mg PO DAILY@0800 10/13/21 [History] LORazepam [Ativan] 0.5 mg PO Q8H PRN 10/13/21 [History] Nitroglycerin Sl Tabs [Nitrostat] 0.4 mg SUBLINGUAL Q5M PRN 10/13/21 [History] Thiamine [Vitamin B-1] 100 mg PO BID 10/13/21 [History] busPIRone HCl [Buspar] 10 mg PO BID 10/13/21 [History] Apixaban [Eliquis] 5 mg PO BID tab 10/14/21 [Rx] Isosorbide Mononitrate ER [Imdur] 30 mg PO DAILY #30 tablet 10/14/21 [Rx] Metoprolol Tartrate [Lopressor] 25 mg PO BID #60 tab 10/14/21 [Rx] Follow up Appointment(s)/Referral(s): Tavares Olivares MD [STAFF PHYSICIAN] - 1 Week Donita Darden MD [Primary Care Provider] - 1-2 days Discharge Disposition: TRANSFER TO SNF/ECF
[2021-10-14 18:11] VITALS: BP 149/73; PULSE 78
--- NOTE | 2021-10-16 08:17 | CDI ---
Documentation Clarification Form Date: 10/16/21 From: Laurie Godfrey Admit Date: 10/14/2021 09:27:00 AM Patient Name: Ben Mendoza Visit Number: [id number] Discharge Date: 10/14/2021 06:20:00 PM ATTENTION: The Clinical Documentation Specialists (CDI) and [facility] Coding Staff appreciate your assistance in clarifying documentation. Please respond to the clarification below the line at the bottom and electronically sign. The CDI & [facility] Coding staff will review the response and follow-up if needed. Please note: Queries are made part of the Legal Health Record. If you have any questions, please contact the author of this message via ITS. Dr. Vilma Ellis, Atrial Fibrillation is documented in the H&P and DS. Additional clarification regarding the type of atrial fibrillation is requested. History/Risk Factors: Hx of DVT & PE, old IN,HTN w chronic systolic CHF, emphysema, CAD, S/P CABG Clinical Indicators: Patient discussion [id number] male was hospitalized about a month ago came in with compensative chest pressure like sensation which started yesterday nonpleuritic not associated with food. EKG/telemetry: Sinus rhythm w occ'l PVCs. ST & T wave abnormality, consider lateral ischemia. EKG sinus rhythm 82, [place] 174 QRS 104 QTC 429 Treatment: Eliquis @ home, switched to IV Heparin, back to Eliquis on discharge Consults: Chest pain w abnl troponins, possible NSTEMI. Please clarify the type of atrial fibrillation, if known: [ ] Chronic [ ] Permanent [ ] Paroxysmal [ ] Persistent [ ] Other, please specify [ ] Unable to determine Paroxysmal MTDD
== END 2021-10-14 18:20 | DRG 281 ==
LOC: EC 04:44 → 6NMEDSUR 05:44 → 3SCARD 06:19 → OBSVTOIN 10-14 09:27
PROVIDERS: ADMIT Hospitalist; ATTEND Hospitalist
DX: I21.4 Non-ST elevation (NSTEMI) myocardial infarction (principal); I50.22 Chronic systolic (congestive) heart failure; I11.0 Hypertensive heart disease with heart failure; I48.0 Paroxysmal atrial fibrillation; J43.9 Emphysema, unspecified; Z20.822 Contact with and (suspected) exposure to COVID-19; I25.10 Atherosclerotic heart disease of native coronary artery without angina pectoris; E78.5 Hyperlipidemia, unspecified; I25.5 Ischemic cardiomyopathy; G25.0 Essential tremor; M54.9 Dorsalgia, unspecified; F32.A Depression, unspecified; F41.9 Anxiety disorder, unspecified; I25.2 Old myocardial infarction; Z79.01 Long term (current) use of anticoagulants; Z79.82 Long term (current) use of aspirin; Z79.899 Other long term (current) drug therapy; Z95.1 Presence of aortocoronary bypass graft; Z86.711 Personal history of pulmonary embolism; Z86.718 Personal history of other venous thrombosis and embolism; Z86.73 Personal history of transient ischemic attack (TIA), and cerebral infarction without residual deficits; Z87.19 Personal history of other diseases of the digestive system; Z90.89 Acquired absence of other organs; Z86.79 Personal history of other diseases of the circulatory system; Z87.891 Personal history of nicotine dependence; Z87.01 Personal history of pneumonia (recurrent); Z98.890 Other specified postprocedural states; Z83.2 Family history of diseases of the blood and blood-forming organs and certain disorders involving the immune mechanism; Z82.3 Family history of stroke; Z82.49 Family history of ischemic heart disease and other diseases of the circulatory system
CPT/HCPCS: 36415; 71046; 80053; 80061; 83690; 83735; 83880; 84484; 85025; 85610; 85730; 87635; 93005; 93308; 94640; 94760; 99285

== ENCOUNTER 2021-10-18 02:14 | Inpatient (IN) | payer MEDICARE, OTHER ==
[2021-10-18 03:13] LABS: Basophils % (A) 1 %; Eosinophils # (A) 0.3 k/uL (0-0.7); Eosinophils % (A) 4 %; HCT 39.3 % (39.0-53.0); HGB 12.8 gm/dL (13.0-17.5); Lymphocytes # (A) 1.7 k/uL (1.0-4.8); Lymphocytes % (A) 25 %; MCH 31.1 pg (25.0-35.0); MCHC 32.5 g/dL (31.0-37.0); MCV 95.6 fL (80.0-100.0); Mean Platelet Volume 7.5; Monocytes # (A) 0.6 k/uL (0-1.0); Monocytes % (A) 9 %; Neutrophils # (A) 4.1 k/uL (1.3-7.7); Neutrophils % (A) 60 %; Platelet Count 146 k/uL (150-450); RBC 4.11 m/uL (4.30-5.90); RDW 14.3 % (11.5-15.5); WBC 6.9 k/uL (3.8-10.6)
[2021-10-18 03:15] LABS: Glucose,Whole Blood 98 mg/dL (75-99)
--- NOTE | 2021-10-18 03:20 | ED ---
Neuro HPI - General Chief Complaint: Recheck/Abnormal Lab/Rx Stated Complaint: Recheck Time Seen by Provider: 10/18/21 02:40 Source: patient, EMS Mode of arrival: EMS Limitations: physical limitation (Mild aphasia) - History of Present Illness Is the patient presenting with stroke symptoms?: Yes Last Known Well Date: 10/18/21 Last Known Well Time: 01:30 Onset/Timin -: minutes(s) Initial Comments: 's patient is 71-year-old man sent from his long-term care facility to be evaluated for right upper extremity weakness. This was noticed that approximately 1:30 this morning. It was also reported that the patient was not able to walk. He reportedly ambulates with a walker at baseline. Location: speech, right arm, right leg History of same: Yes Place: home Severity: moderate Quality: weak Improves With: none Worsens With: none On Anticoagulants: Yes Associated Symptoms: denies other symptoms Treatments Prior to Arrival: other - Related Data Home Medications: Home Medications Medication Instructions Recorded Confirmed Ipratropium-Albuterol Nebulize 3 ml INHALATION RT-Q6H PRN 11/03/17 10/13/21 [Duoneb 0.5 mg-3 mg/3 ml Soln] Atorvastatin Calcium [Lipitor] 80 mg PO HS 06/10/21 10/13/21 Montelukast Sodium [Singulair] 10 mg PO HS 06/10/21 10/13/21 Albuterol Sulfate [Proair Hfa] 1 - 2 puff INHALATION RT-Q4H PRN 08/27/21 10/13/21 Aspirin 81 mg PO DAILY 10/13/21 10/13/21 Escitalopram [Lexapro] 5 mg PO DAILY@0800 10/13/21 10/13/21 LORazepam [Ativan] 0.5 mg PO Q8H PRN 10/13/21 10/13/21 Nitroglycerin Sl Tabs [Nitrostat] 0.4 mg SUBLINGUAL Q5M PRN 10/13/21 10/13/21 Thiamine [Vitamin B-1] 100 mg PO BID 10/13/21 10/13/21 busPIRone HCl [Buspar] 10 mg PO BID 10/13/21 10/13/21 Previous Rx's Medication Instructions Recorded Apixaban [Eliquis] 5 mg PO BID #60 tab 06/15/21 Albuterol Nebulized [Ventolin 2.5 mg INHALATION RT-QID PRN #60 ml 09/01/21 Nebulized] Famotidine [Pepcid] 20 mg PO BID 30 Days #60 tab 09/01/21 Furosemide [Lasix] 40 mg PO BID@0900,1600 30 Days #60 09/01/21 tab Spironolactone [Aldactone] 25 mg PO DAILY 30 Days #30 tab 09/16/21 lisinopriL [Zestril] 5 mg PO DAILY #60 tab 09/16/21 Gabapentin [Neurontin] 200 mg PO BID #6 cap 09/17/21 Apixaban [Eliquis] 5 mg PO BID tab 10/14/21 Isosorbide Mononitrate ER [Imdur] 30 mg PO DAILY #30 tablet 10/14/21 Metoprolol Tartrate [Lopressor] 25 mg PO BID #60 tab 10/14/21 Allergies/Adverse Reactions: Allergies Allergy/AdvReac Type Severity Reaction Status Date / Time No Known Allergies Allergy Verified 10/13/21 06:48 Review of Systems ROS Statement: Those systems with pertinent positive or pertinent negative responses have been documented in the HPI. ROS Other: All systems not noted in ROS Statement are negative. Limitations: ROS unobtainable due to patients medical condition (Mild aphasia) Constitutional: Denies: fever, weakness Eyes: Denies: vision change Respiratory: Denies: cough, dyspnea Cardiovascular: Denies: chest pain, palpitations Gastrointestinal: Denies: abdominal pain, vomiting, diarrhea Genitourinary: Denies: dysuria Skin: Denies: rash Neurological: Reports: weakness, confusion. Denies: headache, numbness, paresthesias General Exam General appearance: alert, in no apparent distress Head exam: Present: atraumatic, normocephalic Eye exam: Present: normal appearance. Absent: scleral icterus, conjunctival injection Neck exam: Present: normal inspection Respiratory exam: Present: normal lung sounds bilaterally. Absent: respiratory distress, wheezes, rales, rhonchi, stridor Cardiovascular Exam: Present: regular rate, normal rhythm, normal heart sounds. Absent: systolic murmur, diastolic murmur, rubs, gallop GI/Abdominal exam: Present: soft. Absent: distended, tenderness, guarding, rebound, rigid, mass Extremities exam: Present: normal inspection, normal capillary refill. Absent: pedal edema, calf tenderness Back exam: Present: normal inspection. Absent: CVA tenderness (R), CVA tenderness (L) Neurological exam: Present: alert, CN II-XII intact, motor sensory deficit. Absent: oriented X3 Expanded Neurological exam: Present: protecting the airway Patient oriented to: Present: person, place. Absent: time Speech: Present: fluid speech Cranial nerves: EOM's Intact: Normal, Gag Reflex: Normal, Tongue Deviation: Normal, Facial Sensation: Normal Cerebellar function: Finger to Nose: Abnormal Right Motor strength exam: RUE: 3, LUE: 5, RLE: 4, LLE: 5 Eye Response: (4) open spontaneously Motor Response: (6) obeys commands Verbal Response: (5) oriented Psychiatric exam: Present: normal affect Skin exam: Present: warm, dry, intact, normal color. Absent: rash Stroke MDM - Lab Data Result diagrams: 10/18/21 03:07 10/18/21 03:07 Lab Results 10/18/21 10/18/21 10/18/21 Range/Units 03:07 03:07 03:07 WBC 6.9 (3.8-10.6) k/uL RBC 4.11 L (4.30-5.90) m/uL Hgb 12.8 L (13.0-17.5) gm/dL Hct 39.3 (39.0-53.0) % MCV 95.6 (80.0-100.0) fL MCH 31.1 (25.0-35.0) pg MCHC 32.5 (31.0-37.0) g/dL RDW 14.3 (11.5-15.5) % Plt Count 146 L (150-450) k/uL MPV 7.5 Neutrophils % 60 % Lymphocytes % 25 % Monocytes % 9 % Eosinophils % 4 % Basophils % 1 % Neutrophils # 4.1 (1.3-7.7) k/uL Lymphocytes # 1.7 (1.0-4.8) k/uL Monocytes # 0.6 (0-1.0) k/uL Eosinophils # 0.3 (0-0.7) k/uL Basophils # 0.0 (0-0.2) k/uL PT 11.1 (9.0-12.0) sec INR 1.1 (<1.2) APTT 23.7 (22.0-30.0) sec Sodium 137 (137-145) mmol/L Potassium 4.2 (3.5-5.1) mmol/L Chloride 103 (98-107) mmol/L Carbon Dioxide 28 (22-30) mmol/L Anion Gap 6 mmol/L BUN 27 H (9-20) mg/dL Creatinine 1.12 (0.66-1.25) mg/dL Est GFR (CKD-EPI)AfAm 77 (>60 ml/min/1.73 sqM) Est GFR (CKD-EPI)NonAf 67 (>60 ml/min/1.73 sqM) Glucose 99 (74-99) mg/dL POC Glucose (mg/dL) (75-99) mg/dL POC Glu Senior [employer] Developer ID Calcium 8.9 (8.4-10.2) mg/dL Total Bilirubin 0.5 (0.2-1.3) mg/dL AST 52 (17-59) U/L ALT 76 H (4-49) U/L Alkaline Phosphatase 83 (38-126) U/L Troponin I (0.000-0.034) ng/mL Total Protein 5.6 L (6.3-8.2) g/dL Albumin 3.3 L (3.5-5.0) g/dL 10/18/21 10/18/21 Range/Units 03:07 03:14 WBC (3.8-10.6) k/uL RBC (4.30-5.90) m/uL Hgb (13.0-17.5) gm/dL Hct (39.0-53.0) % MCV (80.0-100.0) fL MCH (25.0-35.0) pg MCHC (31.0-37.0) g/dL RDW (11.5-15.5) % Plt Count (150-450) k/uL MPV Neutrophils % % Lymphocytes % % Monocytes % % Eosinophils % % Basophils % % Neutrophils # (1.3-7.7) k/uL Lymphocytes # (1.0-4.8) k/uL Monocytes # (0-1.0) k/uL Eosinophils # (0-0.7) k/uL Basophils # (0-0.2) k/uL PT (9.0-12.0) sec INR (<1.2) APTT (22.0-30.0) sec Sodium (137-145) mmol/L Potassium (3.5-5.1) mmol/L Chloride (98-107) mmol/L Carbon Dioxide (22-30) mmol/L Anion Gap mmol/L BUN (9-20) mg/dL Creatinine (0.66-1.25) mg/dL Est GFR (CKD-EPI)AfAm (>60 ml/min/1.73 sqM) Est GFR (CKD-EPI)NonAf (>60 ml/min/1.73 sqM) Glucose (74-99) mg/dL POC Glucose (mg/dL) 98 (75-99) mg/dL POC Glu Senior [employer] Developer ID Vidhya Rubalcava Calcium (8.4-10.2) mg/dL Total Bilirubin (0.2-1.3) mg/dL AST (17-59) U/L ALT (4-49) U/L Alkaline Phosphatase (38-126) U/L Troponin I 0.026 (0.000-0.034) ng/mL Total Protein (6.3-8.2) g/dL Albumin (3.5-5.0) g/dL - EKG Data -: EKG Interpreted by Me EKG shows normal: sinus rhythm, axis, intervals (Normal), QRS complexes (Inco mplete left bundle branch block), ST-T waves (Possible anterolateral ischemia) Rate: bradycardia (Rate 49 bpm) Past Medical History Past Medical History: Coronary Artery Disease (CAD), COPD, CVA/TIA, Deep Vein Thrombosis (DVT), Hyperlipidemia, Hypertension, Myocardial Infarction ([place]), Pneumonia, Pulmonary Embolus ([place]) Additional Past Medical History / Comment(s): '"tremors", emphysema, back pain, Chronic PE Last Myocardial Infarction Date:: 12/2015 History of Any Multi-Drug Resistant Organisms: None Reported Past Surgical History: Coronary Bypass/CABG, Heart Catheterization, Hernia Repair, Tonsillectomy Additional Past Surgical History / Comment(s): rt inguinal hernia repair, 3-4 vessel cabg @ [place]. carotid r side 03/24 Past Anesthesia/Blood Transfusion Reactions: No Reported Reaction Additional Past Anesthesia/Blood Transfusion Reaction / Comment(s): stated never had any blood transfusions Past Psychological History: Anxiety, Depression Smoking Status: Former smoker Past Alcohol Use History: None Reported Past Drug Use History: None Reported - Past Family History Mother Family Medical History: CVA/TIA Additional Family Medical History / Comment(s): Pt thinks both his parents had blood clots Father Additional Family Medical History / Comment(s): aaa repair Course Vital Signs 10/18/21 10/18/21 10/18/21 02:16 02:40 03:10 Temperature 97.6 F 97.6 F Pulse Rate 59 L 54 L 44 L Respiratory 20 20 16 Rate Blood Pressure 145/81 145/81 144/72 O2 Sat by Pulse 94 L 100 100 Oximetry 10/18/21 10/18/21 10/18/21 03:25 03:40 04:10 Temperature 97.4 F L 97.2 F L Pulse Rate 50 L 45 L 60 Respiratory 16 18 18 Rate Blood Pressure 128/67 128/66 141/90 O2 Sat by Pulse 100 98 98 Oximetry 10/18/21 06:18 Temperature Pulse Rate 45 L Respiratory 18 Rate Blood Pressure 176/80 O2 Sat by Pulse 100 Oximetry - Reevaluation(s) Reevaluation #1: 10/18/21 03:20 Code stroke is called and case D/W Dr. Farris Disposition Clinical Impression: TIA (transient ischemic attack) Disposition: ADMITTED IP TO THIS HOSP Condition: Serious Is patient prescribed a controlled substance at d/c from ED?: No Referrals: Donita Darden MD [Primary Care Provider] - 1-2 days
[2021-10-18 03:22] LABS: Albumin 3.3 g/dL (3.5-5.0); Calcium 8.9 mg/dL (8.4-10.2); Potassium 4.2 mmol/L (3.5-5.1); Total Bilirubin 0.5 mg/dL (0.2-1.3); Total Protein 5.6 g/dL (6.3-8.2)
[2021-10-18 03:27] LABS: INR 1.1 (<1.2); Partial Thromboplastin Time 23.7 sec (22.0-30.0); Prothrombin Time 11.1 sec (9.0-12.0)
--- NOTE | 2021-10-18 03:35 | CT ---
EXAMINATION TYPE: CT brain wo con for TPA DATE OF EXAM: 10/18/2021 COMPARISON: 01/22/2020 HISTORY: possible stroke CT DLP: 1561.2 mGycm Automated exposure control for dose reduction was used. There is extensive hypodensity in the left cerebellar hemisphere. There is hypodensity left posterior temporal lobe and left occipital lobe consistent with old infarct. There is similar smaller abnormal ity in the right occipital lobe. There is no midline shift. There is no sign of intracranial hemorrha ge. There is cerebral atrophy. Calvarium is intact. IMPRESSION: There is large old left cerebellar infarct in the inferior aspect of the hemisphere. This is a change compared to old exam. There is old left posterior temporal lobe and left occipital lobe infarct without change. There is small right occipital lobe infarct without much change. There is chronic small vessel ischemia in the parietal lobes which is more noticeable than old exam.
--- NOTE | 2021-10-18 03:38 | XR ---
EXAMINATION TYPE: XR chest 1V portable DATE OF EXAM: 10/18/2021 COMPARISON: 10/13/2021 HISTORY: Altered mental status TECHNIQUE: Single view FINDINGS: Heart is enlarged. There is no gross heart failure. There are sternal wires. There are ches t leads. There is no evidence of pleural effusion. IMPRESSION: Cardiomegaly. No obvious heart failure. Heart is slightly enlarged. Mild pulmonary fibrot ic changes at the lung bases. No significant change overall compared to last exam.
--- NOTE | 2021-10-18 03:56 | CT ---
EXAMINATION TYPE: CT angio head neck DATE OF EXAM: 10/18/2021 COMPARISON: None HISTORY: possible stroke CT DLP: 1561.2 mGycm Automated exposure control for dose reduction was used. CONTRAST: Performed with IV Contrast, patient injected with 65ml mL of Isovue 370. Images obtained from the aortic arch to the vertex of the brain with IV contrast. There are 3-D post processed images. There is normal branching pattern of the great vessels on the aortic arch. There is arterial flow in both common carotid arteries. There is thrombosis of the right internal carotid artery at its origin. There is significant plaque formation and approximate 50% stenosis of the origin of the left interna l carotid artery. There is bilateral arterial flow in the vertebral arteries. There is significant na rrowing of the distal right vertebral artery. There is arterial flow in the basilar artery which appe ars to be filling only from the right side through the stenotic distal right vertebral artery. There is arterial flow in the anterior and middle cerebral arteries bilaterally. There is arterial fl ow in both posterior cerebral arteries. I see no evidence of intracranial aneurysm or neovascularity. The right anterior cerebral and right middle cerebral artery appear to fill through the anterior com municating artery. There is normal enhancement of the venous sinuses. There is no mass effect. 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 There is significant stenosis of the distal r ight vertebral artery. The left vertebral artery is small and does not appear to be flowing to the ba silar artery.. No intracranial hemodynamic stenosis. Infarcts noted in the left cerebellar hemisphere and the left temporal and occipital and parietal lob es. There is approximate 50% stenosis of the origin of the left internal carotid artery.
[2021-10-18] MEDS ORDERED: ASPIRIN 325 MG TAB PO STA (05:59)
[2021-10-18] MEDS ORDERED: ALBUTEROL NEBULIZED 2.5 MG/3 ML INHALATION PRN (06:17)
[2021-10-18 06:22] LABS: Appearance,Urine Clear (Clear); Bilirubin,Urine Negative (Negative); Blood,Urine Small (Negative); Color,Urine Yellow; Glucose,Urine (UA) Negative (Negative); Ketones,Urine Negative (Negative); Leukocyte Esterase,Urine Negative (Negative); Mucus,Urine Rare /hpf; Nitrite,Urine Negative (Negative); Protein,Urine Trace (Negative); RBC,Urine 6 /hpf (0-5); Urobilinogen,Urine <2.0 mg/dL (<2.0); WBC,Urine 1 /hpf (0-5)
[2021-10-18] MEDS: SODIUM CHLORIDE 0.9% 1,000 ML IV SCH (06:36)
[2021-10-18 06:55] LABS: Specific Gravity,Urine >1.050 (1.001-1.035)
[2021-10-18] MEDS: THIAMINE 100 MG TAB PO SCH ×2 (09:06→20:52)
[2021-10-18] MEDS: busPIRone HCl 10 MG TAB PO SCH ×2 (09:06→20:52)
[2021-10-18] MEDS: ESCITALOPRAM 5 MG TAB PO SCH (09:06)
[2021-10-18] MEDS: DOCUSATE 100 MG CAP PO SCH ×2 (09:06→15:52)
[2021-10-18] MEDS: FAMOTIDINE 20 MG TAB PO SCH ×2 (09:06→20:52)
[2021-10-18] MEDS: SPIRONOLACTONE 25 MG TAB PO SCH (09:06)
[2021-10-18] MEDS: GABAPENTIN 100 MG CAP PO SCH ×2 (09:06→20:52)
[2021-10-18] MEDS: ISOSORBIDE MONONITRATE ER 30 MG TAB.ER.24H PO SCH (09:06)
[2021-10-18] MEDS: lisinopriL 5 MG TAB PO SCH (09:06)
[2021-10-18] MEDS: FUROSEMIDE 40 MG TAB PO SCH ×2 (09:06→15:52)
[2021-10-18] MEDS: METOPROLOL TARTRATE 25 MG TAB PO SCH ×2 (09:07→20:52)
--- NOTE | 2021-10-18 12:10 | P.HPIM ---
History of Present Illness This is a pleasant 71 years old male with past medical history of Coronary Artery Disease status post 3-4 vessel CABG at [facility] , COPD, CVA/TIA, Deep Vein Thrombosis on Eliquis , Hyperlipidemia, Hypertension, Pulmonary E mbolus, hand tremors, emphysema, back pain, anxiety and depression Patient was sent from his usp at [facility] for Right sided hemiparesis. Patient is awake and alert he was in the hospital but is disoriented to time and person. He has slightly slurred slow Speech, at Times Hard to Understand and He Has to Repeat This Sentence. He Denies Any Headache. No Numbness. No Nausea Vomiting or Chest Pain or Dyspnea. No Diarrhea or Urinary Complaints. No Fever. Patient States That Both Sides Are Weak but the Right Side Is Weaker Than Usual. Nonsmoker Patient is a slightly bradycardic with heart rate 44-51 this morning, afebrile and Restoril vitals are stable. Labs checked and they show an unremarkable CBC, INR, BMP and liver enzymes. First troponin normal 0.02, then total elevated troponin 0.0392 Urine sample looks concentrated but not suspicious for infection winkler virus undetected. CT angiogram of the head and neck: Thrombosis of the entire right internal carotid arteries. There is significant stenosis of the distal right vertebral artery. CT of the brain: No acute process, however showing multiple old infarcts including 1 large cerebellar infarct, left posterior temporal, left occipital and right occipital infarct Chest x-ray: No acute change Emergency room he was started on aspirin 325 mg. He was on 81 mg usp Also Eliquis was held from the emergency room for possible need of any surgical intervention Review of Systems CONSTITUTIONAL: No fever, no malaise, no fatigue. HEENT: No recent visual problems or hearing problems. Denied any sore throat. CARDIOVASCULAR: No orthopnea, PND, no palpitations, no syncope. PULMONARY: No shortness of breath, no cough, no hemoptysis. GASTROINTESTINAL: No diarrhea, no nausea, no vomiting, no abdominal pain. Normoactive bowel sounds. NEUROLOGICAL: No headaches, no numbness. HEMATOLOGICAL: Denies any bleeding or petechiae. GENITOURINARY: Denies any burning micturition, frequency, or urgency. MUSCULOSKELETAL/RHEUMATOLOGICAL: Denies any joint pain, swelling, or any muscle pain. ENDOCRINE: Denies any polyuria or polydipsia. Past Medical History Past Medical History: Coronary Artery Disease (CAD), COPD, CVA/TIA, Deep Vein Thrombosis (DVT), Hyperlipidemia, Hypertension, Myocardial Infarction ([place]), Pneumonia, Pulmonary Embolus ([place]) Additional Past Medical History / Comment(s): '"tremors", emphysema, back pain, Chronic PE Last Myocardial Infarction Date:: 12/2015 History of Any Multi-Drug Resistant Organisms: None Reported Past Surgical History: Coronary Bypass/CABG, Heart Catheterization, Hernia Repair, Tonsillectomy Additional Past Surgical History / Comment(s): rt inguinal hernia repair, 3-4 vessel cabg @ [place]. carotid r side 03/24 Past Anesthesia/Blood Transfusion Reactions: No Reported Reaction Additional Past Anesthesia/Blood Transfusion Reaction / Comment(s): stated never had any blood transfusions Past Psychological History: Anxiety, Depression Smoking Status: Former smoker Past Alcohol Use History: None Reported Past Drug Use History: None Reported - Past Family History Mother Family Medical History: CVA/TIA Additional Family Medical History / Comment(s): Pt thinks both his parents had blood clots Father Additional Family Medical History / Comment(s): aaa repair Medications and Allergies Home Medications Medication Instructions Recorded Confirmed Type Atorvastatin Calcium [Lipitor] 80 mg PO HS 06/10/21 10/18/21 History Montelukast Sodium [Singulair] 10 mg PO HS 06/10/21 10/18/21 History Albuterol Sulfate [Proair Hfa] 1 puff INHALATION RT-Q4H PRN 08/27/21 10/18/21 History Albuterol Nebulized [Ventolin 2.5 mg INHALATION RT-QID PRN #60 ml 09/01/21 1 12/19/20 Rx Nebulized] Famotidine [Pepcid] 20 mg PO BID 30 Days #60 tab 09/01/21 10/18/21 Rx Furosemide [Lasix] 40 mg PO BID@0900,1600 30 Days #60 09/01/21 10/18/21 Rx tab Spironolactone [Aldactone] 25 mg PO DAILY 30 Days #30 tab 09/16/21 10/18/21 Rx Gabapentin [Neurontin] 200 mg PO BID #6 cap 09/17/21 10/18/21 Rx Aspirin 81 mg PO DAILY 10/13/21 10/18/21 History Escitalopram [Lexapro] 5 mg PO DAILY 10/13/21 10/18/21 History LORazepam [Ativan] 0.5 mg PO Q8H PRN 10/13/21 10/18/21 History Nitroglycerin Sl Tabs [Nitrostat] 0.4 mg SUBLINGUAL Q5M PRN 10/13/21 10/18/21 History Thiamine [Vitamin B-1] 100 mg PO HS 10/13/21 10/18/21 History busPIRone HCl [Buspar] 10 mg PO BID 10/13/21 10/18/21 History Apixaban [Eliquis] 5 mg PO BID tab 10/14/21 10/18/21 Rx Isosorbide Mononitrate ER [Imdur] 30 mg PO DAILY #30 tablet 10/14/21 10/18/21 Rx Metoprolol Tartrate [Lopressor] 25 mg PO BID #60 tab 10/14/21 10/18/21 Rx lisinopriL [Zestril] 5 mg PO DAILY 10/18/21 10/18/21 History Allergies Allergy/AdvReac Type Severity Reaction Status Date / Time No Known Allergies Allergy Verified 10/18/21 07:38 Physical Exam Vitals: Vital Signs Temp Pulse Resp BP Pulse Ox 10/18/21 11:04 44 L 18 109/59 98 10/18/21 10:22 51 L 18 128/73 100 10/18/21 09:04 79 18 162/83 100 10/18/21 08:04 97.9 F 47 L 18 158/76 100 10/18/21 07:30 49 L 18 126/61 99 10/18/21 06:18 45 L 18 176/80 100 10/18/21 04:10 97.2 F L 60 18 141/90 98 10/18/21 03:40 45 L 18 128/66 98 10/18/21 03:25 97.4 F L 50 L 16 128/67 100 10/18/21 03:10 44 L 16 144/72 100 10/18/21 02:40 97.6 F 54 L 20 145/81 100 10/18/21 02:16 97.6 F 59 L 20 145/81 94 L Intake and Output 10/17/21 10/18/21 10/18/21 22:59 06:59 14:59 Other: Weight 62.142 kg -GENERAL: The patient is alert and oriented x1, not in any acute distress. Mild malnutrition HEENT: Pupils are round and equally reacting to light. EOMI. No scleral icterus. No conjunctival pallor. Normocephalic, atraumatic. No pharyngeal erythema. No thyromegaly. CARDIOVASCULAR: S1 and S2 present. No murmurs, rubs, or gallops. PULMONARY: Chest is clear to auscultation, no wheezing or crackles. ABDOMEN: Soft, nontender, nondistended, normoactive bowel sounds. No palpable organomegaly. MUSCULOSKELETAL: No joint swelling or deformity. EXTREMITIES: No cyanosis, clubbing, or pedal edema. -NEUROLOGICAL: Patient has slurred monitoring of speech but to rest of cranial nerves are grossly intact. Weakness on both sides minimally on the right side, are more than leg. Sensation intact. Meningeal signs are absent SKIN: No rashes. No petechiae Results CBC & Chem 7: 10/18/21 03:07 10/18/21 03:07 Labs: Abnormal Lab Results - Last 24 Hours (Table) 10/18/21 10/18/21 10/18/21 Range/Units 03:07 03:07 06:08 RBC 4.11 L (4.30-5.90) m/uL Hgb 12.8 L (13.0-17.5) gm/dL Plt Count 146 L (150-450) k/uL BUN 27 H (9-20) mg/dL ALT 76 H (4-49) U/L Troponin I (0.000-0.034) ng/mL Total Protein 5.6 L (6.3-8.2) g/dL Albumin 3.3 L (3.5-5.0) g/dL Ur Specific [place] >1.050 H (1.001-1.035) Urine Protein Trace H (Negative) Urine Blood Small H (Negative) Urine RBC 6 H (0-5) /hpf Urine Mucus Rare H (None) /hpf 10/18/21 10/18/21 Range/Units 06:43 09:12 RBC (4.30-5.90) m/uL Hgb (13.0-17.5) gm/dL Plt Count (150-450) k/uL BUN (9-20) mg/dL ALT (4-49) U/L Troponin I 0.039 H* 0.039 H* (0.000-0.034) ng/mL Total Protein (6.3-8.2) g/dL Albumin (3.5-5.0) g/dL Ur Specific [place] (1.001-1.035) Urine Protein (Negative) Urine Blood (Negative) Urine RBC (0-5) /hpf Urine Mucus (None) /hpf Assessment and Plan Assessment: Right-sided hemiparesis suspicious for acute stroke Elevated troponin Carotid artery disease, thrombosis of the entire right internal carotid artery, with 50% stenosis on the left internal carotid artery Mild to moderate calories 13 malnutrition History of coronary artery disease status post 3-4 vessel CABG History of CVA, multiple infarcts including large left cerebellar, bilateral occipital and left temporal infarcts COPD, no acute exacerbation History of DVT/PE on Eliquis Attention Hyperlipidemia History of and time Chronic back pain Anxiety and depression, not an active issue Plan: This is a pleasant 71 years old male who presents with multiple strokes on the CT of the brain, although most R not acute, elevated troponin Continue with aspirin 325 mg Neurology consult [employer] for consulted for elevated troponin Vascular surgery team consulted for carotid artery disease Nutrition evaluation Labs and medication were reviewed.. Continue same treatment. Continue with symptomatic treatment. Resume home medication. Monitor lytes and vitals. DVT and GI prophylaxis. Further recommendations depends on the clinical course of the patient DVT prophylaxis Eliquis, on hold GI Prophylaxis: Pepcid PT/OT: Pending Speech and swallow evaluation Prognosis is guarded
--- NOTE | 2021-10-18 20:27 | P.CNNES ---
History of Present Illness Consult date: 10/18/21 Reason for Consult: TIA History of Present Illness: The patient is a 71-year-old male who is seen in neurologic consultation on October 18, 2021, via telemedicine. History is obtained from the chart. The patient says he does not remember why he is here in the hospital. With some assistance, he is able to tell me that he had sudden onset of right-sided weakness "either today or yesterday". Patient denies headache with these symptoms. He denies difficulty with speech and swallowing. Patient denies visual changes. He says that he is normally ambulatory, on his own. He does not require any assistive devices. Per review of the chart, the patient was recently moved from his home to [facility], for further assistance. In the emergency department, CT scan of the brain was performed. There is no evidence of acute infarct. There was evidence ofa large old left cerebellar infarct as well as left temporal-occipital infarct and a small right occipital infarct. The patient was recently discharged from this facility. Patient has multiple stroke/vascular risk factors. Past Medical History Past Medical History: Coronary Artery Disease (CAD), COPD, CVA/TIA, Deep Vein Thrombosis (DVT), Hyperlipidemia, Hypertension, Myocardial Infarction (PA), Pneumonia, Pulmonary Embolus (PE) Additional Past Medical History / Comment(s): '"tremors", emphysema, back pain, Chronic PE Last Myocardial Infarction Date:: 12/2015 History of Any Multi-Drug Resistant Organisms: None Reported Past Surgical History: Coronary Bypass/CABG, Heart Catheterization, Hernia Repair, Tonsillectomy Additional Past Surgical History / Comment(s): rt inguinal hernia repair, 3-4 vessel cabg @ [facility] r side 03/24 Past Anesthesia/Blood Transfusion Reactions: No Reported Reaction Additional Past Anesthesia/Blood Transfusion Reaction / Comment(s): stated never had any blood transfusions Past Psychological History: Anxiety, Depression Additional Psychological History / Comment(s): Son Edmund states depression x 15 yrs Smoking Status: Former smoker Past Alcohol Use History: None Reported Additional Past Alcohol Use History / Comment(s): Quit smoking August 2021 Past Drug Use History: None Reported Additional Drug Use History / Comment(s): Pt uses medical marijuna 3-4 times per week, unable to at this time because he is staying at [facility]. 08/2021 was told by nursing staff pt was using "mushrooms as well as suboxone & clonapin from a friend". - Past Family History Mother Family Medical History: CVA/TIA Additional Family Medical History / Comment(s): Pt thinks both his parents had blood clots Father Additional Family Medical History / Comment(s): aaa repair Medications and Allergies Home Medications Medication Instructions Recorded Confirmed Type Atorvastatin Calcium [Lipitor] 80 mg PO HS 06/10/21 10/18/21 History Montelukast Sodium [Singulair] 10 mg PO HS 06/10/21 10/18/21 History Albuterol Sulfate [Proair Hfa] 1 puff INHALATION RT-Q4H PRN 08/27/21 10/18/21 History Albuterol Nebulized [Ventolin 2.5 mg INHALATION RT-QID PRN #60 ml 09/01/21 10/18/21 Rx Nebulized] Famotidine [Pepcid] 20 mg PO BID 30 Days #60 tab 09/01/21 10/18/21 Rx Furosemide [Lasix] 40 mg PO BID@0900,1600 30 Days #60 09/01/21 10/18/21 Rx tab Spironolactone [Aldactone] 25 mg PO DAILY 30 Days #30 tab 09/16/21 10/18/21 Rx Gabapentin [Neurontin] 200 mg PO BID #6 cap 09/17/21 10/18/21 Rx Aspirin 81 mg PO DAILY 10/13/21 10/18/21 History Escitalopram [Lexapro] 5 mg PO DAILY 10/13/21 10/18/21 History LORazepam [Ativan] 0.5 mg PO Q8H PRN 10/13/21 10/18/21 History Nitroglycerin Sl Tabs [Nitrostat] 0.4 mg SUBLINGUAL Q5M PRN 10/13/21 10/18/21 History Thiamine [Vitamin B-1] 100 mg PO HS 10/13/21 10/18/21 History busPIRone HCl [Buspar] 10 mg PO BID 10/13/21 10/18/21 History Apixaban [Eliquis] 5 mg PO BID tab 10/14/21 10/18/21 Rx Isosorbide Mononitrate ER [Imdur] 30 mg PO DAILY #30 tablet 10/14/21 10/18/21 Rx Metoprolol Tartrate [Lopressor] 25 mg PO BID #60 tab 10/14/21 10/18/21 Rx lisinopriL [Zestril] 5 mg PO DAILY 10/18/21 10/18/21 History Allergies Allergy/AdvReac Type Severity Reaction Status Date / Time No Known Allergies Allergy Verified 10/18/21 07:38 Physical Examination - Vital Signs Vital Signs: Vital Signs Temp Pulse Resp BP Pulse Ox 10/18/21 14:53 97.9 F 49 L 18 123/65 97 10/18/21 13:04 49 L 18 123/65 97 10/18/21 11:04 44 L 18 109/59 98 10/18/21 10:22 51 L 18 128/73 100 10/18/21 09:04 79 18 162/83 100 10/18/21 08:04 97.9 F 47 L 18 158/76 100 10/18/21 07:30 49 L 18 126/61 99 10/18/21 06:18 45 L 18 176/80 100 10/18/21 04:10 97.2 F L 60 18 141/90 98 10/18/21 03:40 45 L 18 128/66 98 10/18/21 03:25 97.4 F L 50 L 16 128/67 100 10/18/21 03:10 44 L 16 144/72 100 10/18/21 02:40 97.6 F 54 L 20 145/81 100 10/18/21 02:16 97.6 F 59 L 20 145/81 94 L Intake and Output 10/18/21 10/18/21 10/18/21 06:59 14:59 22:59 Other: Weight 62.142 kg Gen.: The patient is resting in the bed. He is well-nourished. He is in no acute distress. HEENT: Head is atraumatic, normocephalic. There is a tremor of the head, jaw and eyes. Fundus not visualized. There is no scleral icterus. Mucous membranes are moist. Neck: Without carotid bruits Heart: Regular rate and rhythm Extremities: Without edema Neurological examination Mental status: The patient is awake and alert. His oriented to his name, date of , age and location. He initially states the year to be "2011". He then changes his answer to "2019". He reports the month to be "July". The patient's speech is clear. Cranial nerves: Pupils are equal at 4 mm and reactive. Visual lewis are full to confrontation. Extraocular movements are intact. Facial sensation is intact. There is a right facial droop. Uvula and palate are midline. Shoulder shrug is symmetric. Tongue protrudes midline, with tremor. Motor: Bilateral upper extremity strength is 5/5. Right hip flexor strength 2- 3/5. Right ankle plantar and dorsiflexors 2-3/5. Left hip flexor strength 3- 4/5. Coordination: There is a resting and intention tremor of the bilateral upper extremities, left greater than right. There is no dysmetria with finger to nose testing. Deep tendon reflexes: 2-3+/4+ in the bilateral upper extremities. Bilateral patellar reflexes 3+/4+. Plantar responses are flexor bilaterally. Sensation: Grossly intact to light touch throughout. There is no extinction with double simultaneous stimulation. Results - Laboratory Findings CBC and BMP: 10/18/21 03:07 10/18/21 03:07 Abnormal Lab Findings: Abnormal Labs 10/18/21 10/18/21 10/18/21 03:07 03:07 06:08 RBC 4.11 L Hgb 12.8 L Plt Count 146 L BUN 27 H ALT 76 H Troponin I Total Protein 5.6 L Albumin 3.3 L Ur Specific [place] >1.050 H Urine Protein Trace H Urine Blood Small H Urine RBC 6 H Urine Mucus Rare H 10/18/21 10/18/21 06:43 09:12 RBC Hgb Plt Count BUN ALT Troponin I 0.039 H* 0.039 H* Total Protein Albumin Ur Specific [place] Urine Protein Urine Blood Urine RBC Urine Mucus Assessment and Plan Assessment: 1. TIA versus stroke in a patient with multiple vascular risk factors and previous strokes. 2. Probable vascular dementia Plan: 1. MRI brain to evaluate for stroke 2.continue high-dose statin 3. Continue Eliquis 4. 2-D echocardiogram and hemoglobin A1c have recently been checked so there is no need to check them again this soon Time with Patient: Greater than 30 (spent 40 minutes with the patient via telemedicine)
[2021-10-18] MEDS: MONTELUKAST 10 MG TAB PO SCH (20:52)
[2021-10-18] MEDS: ATORVASTATIN 80 MG TAB PO SCH (20:52)
[2021-10-18 22:09] LABS: Glucose,Whole Blood 94 mg/dL (75-99)
[2021-10-18] MEDS ORDERED: NALOXONE 0.4 MG/ML 1 ML VIAL IV PRN (22:36)
[2021-10-19] MEDS: DOCUSATE 100 MG CAP PO SCH ×4 (00:48→22:15)
[2021-10-19 04:27] LABS: Basophils % (A) 0 %; Eosinophils # (A) 0.2 k/uL (0-0.7); Eosinophils % (A) 3 %; HCT 40.9 % (39.0-53.0); HGB 13.5 gm/dL (13.0-17.5); Lymphocytes # (A) 1.5 k/uL (1.0-4.8); Lymphocytes % (A) 22 %; MCH 31.4 pg (25.0-35.0); MCHC 32.9 g/dL (31.0-37.0); MCV 95.3 fL (80.0-100.0); Mean Platelet Volume 7.9; Monocytes # (A) 0.5 k/uL (0-1.0); Monocytes % (A) 8 %; Neutrophils # (A) 4.3 k/uL (1.3-7.7); Neutrophils % (A) 64 %; Platelet Count 148 k/uL (150-450); RDW 14.1 % (11.5-15.5); WBC 6.7 k/uL (3.8-10.6)
[2021-10-19 04:28] LABS: African American GFR (CKD) 87 (>60 ml/min/1.73 sqM); Anion Gap 3 mmol/L; Blood Urea Nitrogen 20 mg/dL (9-20); Calcium 8.9 mg/dL (8.4-10.2); Carbon Dioxide 34 mmol/L (22-30); Chloride 99 mmol/L (98-107); Glucose 92 mg/dL (74-99); Magnesium 1.9 mg/dL (1.6-2.3); Non-African American GFR(CKD) 75 (>60 ml/min/1.73 sqM); Potassium 4.7 mmol/L (3.5-5.1); Sodium 136 mmol/L (137-145)
[2021-10-19] MEDS: SODIUM CHLORIDE 0.9% 1,000 ML IV SCH (05:48)
[2021-10-19] MEDS ORDERED: HEPARIN SODIUM,PORCINE/PF 5,000 UNIT/0.5 ML SYRINGE SQ SCH (08:00)
[2021-10-19] MEDS ORDERED: ASPIRIN 325 MG TAB PO SCH (09:00)
[2021-10-19] MEDS: ASPIRIN 81 MG PO SCH (09:19)
[2021-10-19] MEDS: APIXABAN 5 MG TAB PO SCH ×2 (09:19→22:15)
[2021-10-19] MEDS: busPIRone HCl 10 MG TAB PO SCH ×2 (09:21→22:14)
[2021-10-19] MEDS: ESCITALOPRAM 5 MG TAB PO SCH (09:21)
[2021-10-19] MEDS: SPIRONOLACTONE 25 MG TAB PO SCH (09:22)
[2021-10-19] MEDS: GABAPENTIN 100 MG CAP PO SCH ×2 (09:22→22:14)
[2021-10-19] MEDS: lisinopriL 5 MG TAB PO SCH (09:22)
[2021-10-19] MEDS: FAMOTIDINE 20 MG TAB PO SCH ×2 (09:22→22:14)
[2021-10-19] MEDS: ISOSORBIDE MONONITRATE ER 30 MG TAB.ER.24H PO SCH (09:22)
[2021-10-19] MEDS: THIAMINE 100 MG TAB PO SCH ×2 (09:22→22:15)
[2021-10-19] MEDS: FUROSEMIDE 40 MG TAB PO SCH ×2 (09:22→16:54)
--- NOTE | 2021-10-19 10:00 | US ---
EXAMINATION TYPE: US carotid duplex BILAT DATE OF EXAM: 10/19/2021 COMPARISON: CTA CLINICAL HISTORY: CVA, right sided weakness. EXAM MEASUREMENTS: RIGHT: Peak Systolic Velocity (PSV) cm/sec ----- Right CCA: 67.7 ----- Right ICA: 0.0 ----- Right ECA: 129.2 ICA/CCA ratio: 0 RIGHT: End Diastole cm/sec ----- Right CCA: 0.0 ----- Right ICA: 0.0 ----- Right ECA: 13.0 LEFT: Peak Systolic Velocity (PSV) cm/sec ----- Left CCA: 70.9 ----- Left ICA: 123.3 ----- Left ECA: 102.0 ICA/CCA ratio: 1.8 LEFT: End Diastole cm/sec ----- Left CCA: 28.9 ----- Left ICA: 34.7 ----- Left ECA: 11.4 VERTEBRALS (direction of flow): Right Vertebral: NOT SEEN Left Vertebral: Antegrade Rhythm: Arrhythmia Severe soft plaque seen bilateral. Right ICA completely occluded. IMPRESSION: 1. Occlusion of the right internal carotid artery. 2. Nonvisualization left vertebral artery. 3. Atheromatous plaquing left internal carotid artery without flow-limiting stenosis. Criteria for Assigning % of Stenosis / Diameter reduction (Estimation based on the indirect measurements of the internal carotid artery velocities (ICA PSV). 1. Normal (no stenosis)=ICA PSV < 125 cm/s: ratio < 2.0: ICA EDV<40 cm/s. 2. Less than 50% stenosis=ICA PSV < 125 cm/s: ratio < 2.0: ICA EDV<40 cm/s. 3. 50 to 69% stenosis=ICA PSV of 125 to 230 cm/s: ration 2.0 ? 4.0: ICA EDV 40-100 cm/s. 4. Greater than 70% stenosis to near occlusion= ICA PSV > 230 cm/s: ratio > 4.0: ICA EDV > 100 cm/s. 5. Near occlusion= ICA PSV velocities may be low or undetectable: variable ratio and ICA EDV. 6. Total occlusion=unable to detect flow.
[2021-10-19 11:57] LABS: Chol/HDL Ratio 3.05 Ratio; LDL Cholesterol,Calculated 73.7 mg/dL (0.0-131.0); VLDL Calculation 19.66 mg/dL (5.00-40.00)
--- NOTE | 2021-10-19 12:03 | P.CNPUL ---
History of Present Illness Consult date: 10/19/21 Requesting physician: Rj Nolan Reason for consult: other Chief complaint: Bradycardia, TIA History of present illness: This is a 71-year-old white male patient who was brought in from the [facility] by EMS on 10/18/2021 for evaluation of right upper extremity weakness that was noticed a little over then an hour prior to presentation. Patient could not walk and she normally ambulates with a walker at baseline. EKG in the ER revealed incomplete left bundle branch block, sinus mechanism, and the rate was as low as 20, although we don't have recorded strips. CT of the brain showed a large old left posterior temporal lobe and left occipital lobe infarct without change. There was a large old left cerebellar infarct in the inferior aspect of the hemisphere, and there was a small right occipital lobe infarct without much change, and chronic small vessel ischemia in the parietal lobes which was more noticeable compared his previous CT of the brain from 01/22/2020. Patient is a poor historian, he is quite confused, he is only oriented to self, he did not know he was in the hospital. Could not state the date. Seems to be slow with responses, takes time to process information. But follows all simple commands, moves all 4 extremities, no garbled speech, face symmetric, no unilateral weakness or paralysis noted. His initial neurological symptoms seem to have resolved. However his baseline is not known. Breathing comfortably, does admit to history of smoking. Chest x-ray showed cardiomegaly, slightly enlarged heart, mild pulmonary fibrotic changes at the lung bases. CT angiography of the brain showed thrombosis of the entire right internal carotid artery, there is significant stenosis of the distal right vertebral artery, and the left vertebral artery is small and does not appear to be flow into the basilar artery, no intracranial hemodynamic stenosis, and infarcts were noted in the left cerebellar hemisphere and left temporal and occipital and parietal lobes area there was approximately 50% stenosis of the origin of the left internal carotid artery. Patient admission labs were reviewed showing white blood cell, 6.9, hemoglobin is 12.8, INR was 1.1, electrolytes and renal profile were unremarkable, patient had a mild troponin elevation, initial troponin was within normal limits at 0.026, and subsequent troponins were 0.0392. Urinalysis showed trace protein, small nitrites, but no clear evidence of pneumonia, COVID- 19 PCR was negative. Patient's medical history includes COPD, previous history of CVA/TIA, previous history of DVT on Eliquis, hypertension, hyperlipidemia, coronary artery disease with history of 3-4 vessel CABG at [facility], history of pulmonary embolism, chronic back pain, anxiety and depression. Patient is being followed by neurology, he is on 81 mg aspirin, high intensity statin in the form of Lipitor 80 mg daily, she was restarted on his home dose Eliquis 5 mg twice a day. This morning he seen in the intensive care unit, resting comfortably in bed, denies any specific complaints, currently on 2 L of oxygen his pulse ox of 94%, breathing comfortable, lung sounds are clear, diminished. No rhonchi or wheezing, no coughing, blood pressure is 100/78. Review of Systems All systems: negative Constitutional: Denies chills, Denies fever Eyes: denies blurred vision, denies pain Ears, nose, mouth and throat: Denies headache, Denies sore throat Cardiovascular: Denies chest pain, Denies shortness of breath Respiratory: Denies cough Gastrointestinal: Denies abdominal pain, Denies diarrhea, Denies nausea, Denies vomiting Musculoskeletal: Denies myalgias Integumentary: Denies pruritus, Denies rash Neurological: Reports change in mentation, Reports gait dysfunction, Reports motor disturbance, Reports weakness, Denies numbness Psychiatric: Denies anxiety, Denies depression Endocrine: Denies fatigue, Denies weight change Past Medical History Past Medical History: Coronary Artery Disease (CAD), COPD, CVA/TIA, Deep Vein Thrombosis (DVT), Hyperlipidemia, Hypertension, Myocardial Infarction (LA), Pneumonia, Pulmonary Embolus (PE) Additional Past Medical History / Comment(s): '"tremors", emphysema, back pain, Chronic PE Last Myocardial Infarction Date:: 12/2015 History of Any Multi-Drug Resistant Organisms: None Reported Past Surgical History: Coronary Bypass/CABG, Heart Catheterization, Hernia Repair, Tonsillectomy Additional Past Surgical History / Comment(s): rt inguinal hernia repair, 3-4 vessel cabg @ [place]. carotid r side 03/24 Past Anesthesia/Blood Transfusion Reactions: No Reported Reaction Additional Past Anesthesia/Blood Transfusion Reaction / Comment(s): stated never had any blood transfusions Past Psychological History: Anxiety, Depression Additional Psychological History / Comment(s): Son Edmund states depression x 15 yrs Smoking Status: Former smoker Past Alcohol Use History: None Reported Additional Past Alcohol Use History / Comment(s): Quit smoking August 2021 Past Drug Use History: None Reported Additional Drug Use History / Comment(s): Pt uses medical marijuna 3-4 times per week, unable to at this time because he is staying at [facility]. 08/2021 was told by nursing staff pt was using "mushrooms as well as suboxone & clonapin from a friend". - Past Family History Mother Family Medical History: CVA/TIA Additional Family Medical History / Comment(s): Pt thinks both his parents had blood clots Father Additional Family Medical History / Comment(s): aaa repair Medications and Allergies Home Medications Medication Instructions Recorded Confirmed Type Atorvastatin Calcium [Lipitor] 80 mg PO HS 06/10/21 10/18/21 History Montelukast Sodium [Singulair] 10 mg PO HS 06/10/21 10/18/21 History Albuterol Sulfate [Proair Hfa] 1 puff INHALATION RT-Q4H PRN 08/27/21 10/18/21 History Albuterol Nebulized [Ventolin 2.5 mg INHALATION RT-QID PRN #60 ml 09/01/21 10/18/21 Rx Nebulized] Famotidine [Pepcid] 20 mg PO BID 30 Days #60 tab 09/01/21 10/18/21 Rx Furosemide [Lasix] 40 mg PO BID@0900,1600 30 Days #60 09/01/21 10/18/21 Rx tab Spironolactone [Aldactone] 25 mg PO DAILY 30 Days #30 tab 09/16/21 10/18/21 Rx Gabapentin [Neurontin] 200 mg PO BID #6 cap 09/17/21 10/18/21 Rx Aspirin 81 mg PO DAILY 10/13/21 10/18/21 History Escitalopram [Lexapro] 5 mg PO DAILY 10/13/21 10/18/21 History LORazepam [Ativan] 0.5 mg PO Q8H PRN 10/13/21 10/18/21 History Nitroglycerin Sl Tabs [Nitrostat] 0.4 mg SUBLINGUAL Q5M PRN 10/13/21 10/18/21 History Thiamine [Vitamin B-1] 100 mg PO HS 10/13/21 10/18/21 History busPIRone HCl [Buspar] 10 mg PO BID 10/13/21 10/18/21 History Apixaban [Eliquis] 5 mg PO BID tab 10/14/21 10/18/21 Rx Isosorbide Mononitrate ER [Imdur] 30 mg PO DAILY #30 tablet 10/14/21 10/18/21 Rx Metoprolol Tartrate [Lopressor] 25 mg PO BID #60 tab 10/14/21 10/18/21 Rx lisinopriL [Zestril] 5 mg PO DAILY 10/18/21 10/18/21 History Allergies Allergy/AdvReac Type Severity Reaction Status Date / Time No Known Allergies Allergy Verified 10/18/21 07:38 Physical Exam Vitals: Vital Signs Temp Pulse Pulse Resp BP BP Pulse Ox 10/19/21 09:00 85 15 100/78 93 L 10/19/21 08:00 74 80 14 81/56 94 L 10/19/21 07:00 57 L 16 107/63 93 L 10/19/21 06:00 49 L 28 H 89/65 98 10/19/21 05:00 51 L 17 98/58 98 10/19/21 04:00 55 L 17 88/66 97 10/19/21 03:00 58 L 16 118/98 96 10/19/21 02:00 54 L 18 83/52 97 10/19/21 01:00 58 L 16 98/73 95 10/19/21 00:09 56 L 18 102/68 94 L 10/19/21 00:00 46 L 14 130/101 97 10/18/21 23:30 71 28 H 111/72 97 10/18/21 23:00 43 L 30 H 83/55 97 10/18/21 22:30 97.8 F 51 L 24 127/100 98 10/18/21 22:07 60 26 H 10/18/21 21:00 30 L 118/76 10/18/21 17:09 97.3 F L 57 L 18 109/60 98 10/18/21 16:49 97 10/18/21 14:53 97.9 F 49 L 18 123/65 97 10/18/21 13:04 49 L 18 123/65 97 Intake and Output 10/18/21 10/19/21 10/19/21 22:59 06:59 14:59 Intake Total 240 210 Output Total 0 125 Balance 240 210 -125 Intake: Intake, IV Titration 240 Amount Sodium Chloride 0.9% 1, 240 000 ml @ 20 mls/hr IV . Q24H [facility] Rx#:[id number] Oral 210 Output: Urine 0 125 Other: Voiding Method External Catheter External Catheter # Voids 1 Weight 61.7 kg GENERAL EXAM: Alert, 71-year-old white male, on 2 L of oxygen with a pulse ox of 92%, breathing comfortably, somewhat slow to respond, but oriented to self only, disoriented to place and time, comfortable in no apparent distress. HEAD: Normocephalic/atraumatic. EYES: Normal reaction of pupils, equal size. Conjunctiva pink, sclera white. NOSE: Clear with pink turbinates. THROAT: No erythema or exudates. NECK: No masses, no JVD, no thyroid enlargement, no adenopathy. CHEST: No chest wall deformity. Symmetrical expansion. LUNGS: Diminished air entry with no crackles, wheeze, rhonchi or dullness. CVS: Regular rate and rhythm, normal S1 and S2, no gallops, no murmurs, no rubs ABDOMEN: Soft, nontender. No hepatosplenomegaly, normal bowel sounds, no guarding or rigidity. EXTREMITIES: No clubbing, no edema, no cyanosis, 2+ pulses and upper and lower extremities. MUSCULOSKELETAL: Muscle strength and tone normal. SPINE: No scoliosis or deformity SKIN: No rashes CENTRAL NERVOUS SYSTEM: Alert and oriented -1. No focal deficits, tone is normal in all 4 extremities. Results - Laboratory Findings CBC and BMP: 10/19/21 03:26 10/19/21 03:26 PT/INR, D-dimer PT 11.1 sec (9.0-12.0) 10/18/21 03:07 INR 1.1 (<1.2) 10/18/21 03:07 Abnormal lab findings: Abnormal Labs 10/18/21 10/18/21 10/18/21 03:07 03:07 06:08 RBC 4.11 L Hgb 12.8 L Plt Count 146 L Sodium Carbon Dioxide BUN 27 H ALT 76 H Troponin I Total Protein 5.6 L Albumin 3.3 L Ur Specific [place] >1.050 H Urine Protein Trace H Urine Blood Small H Urine RBC 6 H Urine Mucus Rare H 10/18/21 10/18/21 10/19/21 06:43 09:12 03:26 RBC Hgb Plt Count Sodium 136 L Carbon Dioxide 34 H BUN ALT Troponin I 0.039 H* 0.039 H* Total Protein Albumin Ur Specific [place] Urine Protein Urine Blood Urine RBC Urine Mucus 10/19/21 03:26 RBC Hgb Plt Count 148 L Sodium Carbon Dioxide BUN ALT Troponin I Total Protein Albumin Ur Specific [place] Urine Protein Urine Blood Urine RBC Urine Mucus - Diagnostic Findings Chest x-ray: report reviewed, image reviewed Additional studies: CT of the brain, EEG, CT of the brain, EKG, and carotid Doppler study reviewed Assessment and Plan Plan: Assessment: #1. Acute TIA versus CVA with sudden onset of right-sided weakness on 10/18/2021, the right-sided weakness has previously resolved #2. Weakness, inability to ambulate related to the above #3. Total right ICA occlusion, vascular surgery has been consulted #4. Previous history of CVA #5. Possible vascular dementia #6. Bradycardia, in sinus mechanism, with reported rate as low as 20, non sustained, beta blockers have been adjusted per cardiology #7. Previous history of PE and DVT, on Eliquis on a chronic basis #8. History of smoking, and suspect underlying COPD #9. History of coronary artery disease with previous history of 3-4 vessel coronary artery bypass at the [facility] #10. Previous history of LA #11. Hypertension #12. Hyperlipidemia #13. History of right carotid stenosis #14. History of anxiety and depression #15. History of medical marijuana use Plan: Hemodynamically patient is stable Breathing comfortably Chest x-ray has been reviewed showing mild pulmonary fibrotic changes Covid 19 was negative He is in sinus mechanism, his beta blockers have been adjusted, cardiology Jostin on dosing Eliquis has been restarted Monitor neurological status, MRI of the brain is pending Maintain aspiration precautions Patient is confused, but his right-sided weakness seems to have improved Continue with aspirin, high-intensity statin Vascular surgery has been consulted in regards to right total ICA occlusion Otherwise patient has been stable overnight Can be considered for transfer out of the intensive care unit to [facility] I performed a history & physical examination of the patient and discussed their management with my nurse practitioner, Glenda Martinez. I reviewed the nurse practitioner's note and agree with the documented findings and plan of care. Lung sounds are positive for dim breath sounds throughout the lung lewis. The findings and the impression was discussed with the patient. I attest to the documentation by the nurse practitioner. Time with Patient: Greater than 30
--- NOTE | 2021-10-19 12:43 | P.GSCN ---
History of Present Illness Consult date: 10/19/21 Reason for Consult: carotid stenosis Requesting physician: Ben E Sheet History of present illness: This a 71-year-old male with a past medical history of coronary artery disease, COPD, CVA/TIA, DVT, hyperlipidemia, hypertension, LA and pulmonary embolism who was currently on Eliquis who presented to the emergency department from an outside facility with reported right upper and lower extremity weakness. Patient states he is unaware if he's had previous history of strokes or carotid stenosis. However after reviewing his chart it looks like he may have had intervention to the right carotid in 2018. He is alert and oriented to self, place, however unsure of the year and still thinks it is 1950. Code stroke was activated in the emergency room. He had a CT of the brain showing a large old left cerebellar infarct in the inferior aspect of the hemisphere. Facet change compared to old exam. There is old left posterior temporal lobe and left occipital lobe infarct without change. There is small right occipital lobe infarct without much change and chronic small vessel ischemia in the parietal lobes which is more noticeable than old exam. No CT angiogram of head and neck shows thrombosis of the entire right internal carotid artery. There is significant stenosis of the distal right vertebral artery. Left vertebral artery is small and does not appear to be flowing to the basilar artery. There is no intracranial hemodynamic stenosis. Infarcts noted in the left cerebellar hemisphere and left temporal and occipital and parietal lobes. There is approximate 50% stenosis origin of the left internal carotid artery. Vascular surgery was consulted for carotid stenosis. States he is right hand dominant. He states that he usually walks with a walker. He is good denies any focal deficits and states he is able to swallow without difficulty. States he's using his right upper extremity. However he has not been up out of bed walking. Review of Systems A 14 point review of systems was completed all pertinent positives and negatives as stated in the HPI. Past Medical History Past Medical History: Coronary Artery Disease (CAD), COPD, CVA/TIA, Deep Vein Thrombosis (DVT), Hyperlipidemia, Hypertension, Myocardial Infarction (LA), Pneumonia, Pulmonary Embolus (PE) Additional Past Medical History / Comment(s): '"tremors", emphysema, back pain, Chronic PE Last Myocardial Infarction Date:: 12/2015 History of Any Multi-Drug Resistant Organisms: None Reported Past Surgical History: Coronary Bypass/CABG, Heart Catheterization, Hernia Repair, Tonsillectomy Additional Past Surgical History / Comment(s): rt inguinal hernia repair, 3-4 vessel cabg @ [facility] 03/24 Past Anesthesia/Blood Transfusion Reactions: No Reported Reaction Additional Past Anesthesia/Blood Transfusion Reaction / Comm: stated never had any blood transfusions Past Psychological History: Anxiety, Depression Additional Psychological History / Comment(s): Son Edmund states depression x 15 yrs Smoking Status: Former smoker Past Alcohol Use History: None Reported Additional Past Alcohol Use History / Comment(s): Quit smoking August 2021 Past Drug Use History: None Reported Additional Drug Use History / Comment(s): Pt uses [facility] 3-4 times per week, unable to at this time because he is staying at [facility]. 08/2021 was told by nursing staff pt was using "mushrooms as well as suboxone & clonapin from a friend". - Past Family History Mother Family Medical History: CVA/TIA Additional Family Medical History / Comment(s): Pt thinks both his parents had blood clots Father Additional Family Medical History / Comment(s): aaa repair Medications and Allergies Home Medications Medication Instructions Recorded Confirmed Type Atorvastatin Calcium [Lipitor] 80 mg PO HS 06/10/21 10/18/21 History Montelukast Sodium [Singulair] 10 mg PO HS 06/10/21 10/18/21 History Albuterol Sulfate [Proair Hfa] 1 puff INHALATION RT-Q4H PRN 08/27/21 10/18/21 History Albuterol Nebulized [Ventolin 2.5 mg INHALATION RT-QID PRN #60 ml 09/01/21 10/18/21 Rx Nebulized] Famotidine [Pepcid] 20 mg PO BID 30 Days #60 tab 09/01/21 10/18/21 Rx Furosemide [Lasix] 40 mg PO BID@0900,1600 30 Days #60 09/01/21 10/18/21 Rx tab Spironolactone [Aldactone] 25 mg PO DAILY 30 Days #30 tab 09/16/21 10/18/21 Rx Gabapentin [Neurontin] 200 mg PO BID #6 cap 09/17/21 10/18/21 Rx Aspirin 81 mg PO DAILY 10/13/21 10/18/21 History Escitalopram [Lexapro] 5 mg PO DAILY 10/13/21 10/18/21 History LORazepam [Ativan] 0.5 mg PO Q8H PRN 10/13/21 10/18/21 History Nitroglycerin Sl Tabs [Nitrostat] 0.4 mg SUBLINGUAL Q5M PRN 10/13/21 10/18/21 History Thiamine [Vitamin B-1] 100 mg PO HS 10/13/21 10/18/21 History busPIRone HCl [Buspar] 10 mg PO BID 10/13/21 10/18/21 History Apixaban [Eliquis] 5 mg PO BID tab 10/14/21 10/18/21 Rx Isosorbide Mononitrate ER [Imdur] 30 mg PO DAILY #30 tablet 10/14/21 10/18/21 Rx Metoprolol Tartrate [Lopressor] 25 mg PO BID #60 tab 10/14/21 10/18/21 Rx lisinopriL [Zestril] 5 mg PO DAILY 10/18/21 10/18/21 History Allergies Allergy/AdvReac Type Severity Reaction Status Date / Time No Known Allergies Allergy Verified 10/18/21 07:38 Surgical - Exam Vital Signs Temp Pulse Resp BP Pulse Ox 97.6 F 59 L 20 145/81 94 L 10/18/21 02:16 10/18/21 02:16 10/18/21 02:16 10/18/21 02:16 10/18/21 02:16 General appearance: The patient is alert, oriented, appears in no acute distress. HET: Head is normocephalic and atraumatic. Pupils are equal and reactive. Oropharynx is clear without lesions. Neck: Supple without lymphadenopathy. Trachea midline. No audible bruit. Heart: S1 S2. Regular rate and rhythm. Lungs: Clear to auscultation. Abdomen: Soft, nontender, nondistended. Extremities: Normal skin color and turgor. No cyanosis, rash, ulceration, clubbing, or edema. Palpable radial and DP pulses. Neurological: No focal deficits. Alert and oriented 2. Bilateral upper extremity grasp equal 4/5. He is able to raise bilateral upper extremities. He does have some weakness in the right lower extremity 3/5 compared to left 5/5. Patient answers questions appropriately and is able to follow commands however he has poor historian. His tongue protrudes midline, he has facial symmetry. Results - Labs 10/19/21 03:26 10/19/21 03:26 Abnormal Lab Results - Last 24 Hours (Table) 10/18/21 10/18/21 10/19/21 Range/Units 06:43 09:12 03:26 Plt Count (150-450) k/uL Sodium 136 L (137-145) mmol/L Carbon Dioxide 34 H (22-30) mmol/L Troponin I 0.039 H* 0.039 H* (0.000-0.034) ng/mL 10/19/21 Range/Units 03:26 Plt Count 148 L (150-450) k/uL Sodium (137-145) mmol/L Carbon Dioxide (22-30) mmol/L Troponin I (0.000-0.034) ng/mL Diabetes panel 10/18/21 10/19/21 Range/Units 21:43 03:26 Sodium 136 L (137-145) mmol/L Potassium 4.2 4.7 (3.5-5.1) mmol/L Chloride 99 (98-107) mmol/L Carbon Dioxide 34 H (22-30) mmol/L BUN 20 (9-20) mg/dL Creatinine 1.02 (0.66-1.25) mg/dL Glucose 92 (74-99) mg/dL Calcium 8.9 (8.4-10.2) mg/dL Calcium panel 10/19/21 Range/Units 03:26 Calcium 8.9 (8.4-10.2) mg/dL Pituitary panel 10/18/21 10/19/21 Range/Units 21:43 03:26 Sodium 136 L (137-145) mmol/L Potassium 4.2 4.7 (3.5-5.1) mmol/L Chloride 99 (98-107) mmol/L Carbon Dioxide 34 H (22-30) mmol/L BUN 20 (9-20) mg/dL Creatinine 1.02 (0.66-1.25) mg/dL Glucose 92 (74-99) mg/dL Calcium 8.9 (8.4-10.2) mg/dL Adrenal panel 10/18/21 10/19/21 Range/Units 21:43 03:26 Sodium 136 L (137-145) mmol/L Potassium 4.2 4.7 (3.5-5.1) mmol/L Chloride 99 (98-107) mmol/L Carbon Dioxide 34 H (22-30) mmol/L BUN 20 (9-20) mg/dL Creatinine 1.02 (0.66-1.25) mg/dL Glucose 92 (74-99) mg/dL Calcium 8.9 (8.4-10.2) mg/dL - Imaging Comments: As stated in the HPI. Assessment and Plan Assessment: 1. Carotid stenosis, right ICA occlusion. Left ICA proximately 50% per CT angiogram 2. Right-sided weakness, TIA versus stroke 3. History of previous strokes 4. Coronary artery disease 5. History of pulmonary embolism 6. History of hypertension and hyperlipidemia Plan: 1. Carotid duplex ordered 2. Continue high-dose statin 3. Continue aspirin and Eliquis 4. Await MRI results 5. No acute surgical intervention planned. Further recommendations forthcoming per vascular surgeon. The impression and plan of care has been dictated as directed. Dr. Nelson I performed a history and examination of this patient, discussed the same with the dictator. I agree with the dictator's note ,documented as a scribe. Any additional findings or plans will be noted.
--- NOTE | 2021-10-19 12:44 | CONS ---
CONSULTATION Mr. Mendoza is a 71-year-old male who was admitted through the emergency room yesterday because of progressive change in mental status. Patient is awake, confused, unsure why he is in the hospital, cannot recall any history. Patient was in the hospital recently. He has a known history of severe cardiomyopathy, history of coronary artery disease, status post coronary artery bypass grafting done in 2017 with REID to LAD, saphenous vein graft to the diagonal branch and RCA, history of chronic tobacco use. According to him, he stopped about 30 days ago. He had a prior history of hypertension, hyperlipidemia and smoking. Patient could not recall that he had a prior cardiac history or prior history of stroke. His ejection fraction in the past was in the 25% range. He has a history of paroxysmal atrial fibrillation. On presentation he had a brain CT that revealed a large left cerebellar infarct with left posterior temporal lobe and left occipital lobe infarct and small chronic vessel ischemia. He is in sinus mechanism since his admission. He has borderline hypotension. He had a CT angiogram of his head that revealed thrombosis of the right internal carotid artery % stenosis of the origin of the left internal carotid artery. His medication at the time of admission included metoprolol tartrate 25 mg twice a day, gabapentin, albuterol, buspirone, thiamine, Lasix 40 mg twice a day, Pepcid, Eliquis 5 mg twice a day, Zestril 5 mg daily, spironolactone 25 mg daily, Singulair, isosorbide mononitrate 30 mg daily, Lexapro 5 mg daily, Lipitor 80 mg daily and aspirin. Last night on the telemetry floor he had an episode of bradycardia, and that is why he was transferred to the ICU. Patient had no significant pauses or bradycardia after transfer. Review of systems is limited because of the severe confusion. According to the patient, he denies any dyspnea, dizziness or palpitations. He denies any syncope. He denies that he had a prior history of stroke. PHYSICAL EXAMINATION: Blood pressure 107/60 with a heart rate in the 50s. Looking back on his admission, his heart rate has been in the 40s to 50s. HEAD: Normocephalic. Eyes sclerae anicteric. Neck: No bruit appreciated. Lungs heart: Regular rate and rhythm. S1, S2. No S3, with systolic murmur at the base. No diastolic murmur. No rub. ABDOMEN: Soft, nontender. Positive bowel sounds. No organomegaly. EXTREMITIES: No edema. Intact distal pulses. LAB DATA: Lab data revealed troponin 0.026, 0.039, and 0.039. BUN and creatinine of 27 and 1.17, potassium 4.2, hemoglobin 12.8. His COVID-19 is negative. His EKG revealed a sinus bradycardia, rate of 49, with borderline intraventricular conduction delay and nonspecific T-wave inversion. IMPRESSION: 1. Change in mental status with possible transient ischemic attack in a patient with known history of cerebrovascular accident. 2. History of coronary artery disease, status post coronary artery bypass grafting, with no evidence to suggest acute anginal pain at this time. The mild troponin elevation does not represent an acute ischemic event. 3. Severe cardiomyopathy. 4. Sinus bradycardia, probably exacerbated by the beta jignesh. 5. History of chronic tobacco use and chronic obstructive lung disease. 6. Prior history of stroke. 7. History of hyperlipidemia. RECOMMENDATIONS: I will hold his beta jignesh at this time. Will continue on the RIGOBERTO inhibitor and the diuretic as well as the spironolactone. Will follow his rhythm and his blood pressure and, depending on that, further recommendations will be made. Thank you for this consult. Will follow with you. JOHNSON / JORGEN: [id number] /
--- NOTE | 2021-10-19 14:54 | P.PN ---
Subjective Progress Note Date: 10/19/21 Patient initially seen with Dr. High yesterday. Please refer to her note for detail. Patient has presented with right-sided weakness. No other neurological symptoms. No visual symptoms. Patient is laying comfortably in the bed. Denies any headache, no numbness tingling or weakness. CT head showed no acute process. There is evidence of large old left cerebellar infarct as well as left temporal occipital infarct and a small right occipital infarct. Patient lives with his son and his and grandchildren. He uses cane most of the time. No walker. Objective - Vital Signs Vital signs: Vital Signs Temp 97.8 F 10/18/21 22:30 Pulse 85 10/19/21 09:00 Resp 15 10/19/21 09:00 BP 100/78 10/19/21 09:00 Pulse Ox 93 L 10/19/21 09:00 Intake & Output 10/18/21 10/19/21 10/19/21 18:59 06:59 18:59 Intake Total 240 210 Output Total 0 125 Balance 240 210 -125 Weight 61.7 kg Intake: Intake, IV Titration 240 Amount Sodium Chloride 0.9% 1, 240 000 ml @ 20 mls/hr IV . Q24H [facility] Rx#:[id number] Oral 210 Output: Urine 0 125 Other: Voiding Method External Catheter External Catheter # Voids 1 - Exam Gen.: The patient is resting in the bed. He is well-nourished. He is in no acute distress. HEENT: Head is atraumatic, normocephalic. There is a tremor of the head, jaw and eyes and outstretched hands. Fundus not visualized. There is no scleral icterus. Mucous membranes are moist. Neck: Without carotid bruits Heart: Regular rate and rhythm Extremities: Without edema Neurological examination Mental status: The patient is awake and alert. Patient knows it is October 2021 and thinks it is either the of the . He knows it is in [facility] in a hospital. The patient's speech is clear. Patient has mild tremor of his voice as well. Patient can name and repeat very well. Cranial nerves: Pupils are equal at 4 mm and reactive. Visual lewis are full to confrontation, with no neglect. Extraocular movements are intact. Facial sensation is intact. No obvious facial droop. Uvula and palate are midline. Shoulder shrug is symmetric. Tongue protrudes midline, with tremor. Motor: Bilateral upper extremity strength is 5/5, except right deltoid which is weak from arthritis. Hip flexion is 4+ bilaterally, ankle dorsiflexion are normal. Toe extension is very weak, 2 on the right, 5 on left. Coordination: There is a significant component of postural and intention tremor of the bilateral upper extremities, left greater than right. There is mild tremor at rest of the left hand. There is no dysmetria with finger to nose testing. Deep tendon reflexes: 2-3+/4+ in the bilateral upper extremities. Bilateral patellar reflexes 3+/4+. Plantar responses are flexor bilaterally. Sensation: Grossly intact to light touch throughout. There is no extinction with double simultaneous stimulation. - Labs CBC & Chem 7: 10/19/21 03:26 10/19/21 03:26 Labs: Abnormal Lab Results - Last 24 Hours (Table) 10/19/21 10/19/21 Range/Units 03:26 03:26 Plt Count 148 L (150-450) k/uL Sodium 136 L (137-145) mmol/L Carbon Dioxide 34 H (22-30) mmol/L Assessment and Plan Assessment: 1. TIA versus stroke in a patient with multiple vascular risk factors and previous strokes. 2. Right ICA occlusion, 3. Essential tremor. 4. Hypertension 5. Coronary artery disease. 6. Chronic tobacco use. Patient has smoked at least 1 pack per day since age 17, and was smoking up to 4 packs per day prior to quitting 1 month ago. Plan: 1. Await MRI brain to evaluate for stroke. We will also check an MRA of the brain. 2. Continue high-dose statin 3. Continue Eliquis. Patient also started on aspirin 81 mg daily. 4. Lipid panel with cholesterol 139, LDL 73, HDL 45 and triglycerides 98.3 on 10/19/2021. Continue high-dose statins Lipitor 80 mg daily. His hemoglobin A1c 5.5 on 08/28/2021 5. 2-D echocardiogram revealed normal left-ventricular size and left ventricular wall thickness. Moderate global hypokinesis of the left ventricle. EF is severely impaired, 25-30%. Left atrium is mildly dilated. 6. CTA of the head and neck reported thromboses of the entire right ICA. There is significant stenosis of the distal right vertebral artery. The left vertebral artery is small and does not appear to be going to the basal artery. No intracranial hemodynamic stenosis. Infarcts noted in the left cerebellar hemisphere in the left temporal occipital and parietal lobes. There is approximate 50% stenosis of the region of the left ICA. 7. Carotid Doppler revealed occlusion of the right ICA. Nonvisualization of the left vertebral artery. Atheromatous plaquing left ICA without flow limiting stenosis.
[2021-10-19] MEDS: ATORVASTATIN 80 MG TAB PO SCH (22:15)
[2021-10-19] MEDS: MONTELUKAST 10 MG TAB PO SCH (22:15)
--- NOTE | 2021-10-19 23:32 | P.PN ---
Subjective This is a pleasant 71 years old male with past medical history of Coronary Artery Disease status post 3-4 vessel CABG at [facility] , COPD, CVA/TIA, Deep Vein Thrombosis on Eliquis , Hyperlipidemia, Hypertension, Pulmonary Embolus, hand tremors, emphysema, back pain, anxiety and depression Patient was sent from his retirement at [employer] for Right sided hemiparesis. Patient is awake and alert he was in the hospital but is disoriented to time and person. He has slightly slurred slow Speech, at Times Hard to Understand and He Has to Repeat This Sentence. He Denies Any Headache. No Numbness. No Nausea Vomiting or Chest Pain or Dyspnea. No Diarrhea or Urinary Complaints. No Fever. Patient States That Both Sides Are Weak but the Right Side Is Weaker Than Usual. Nonsmoker Patient is a slightly bradycardic with heart rate 44-51 this morning, afebrile and Restoril vitals are stable. Labs checked and they show an unremarkable CBC, INR, BMP and liver enzymes. First troponin normal 0.02, then total elevated troponin 0.0392 Urine sample looks concentrated but not suspicious for infection winkler virus undetected. CT angiogram of the head and neck: Thrombosis of the entire right internal carotid arteries. There is significant stenosis of the distal right vertebral artery. CT of the brain: No acute process, however showing multiple old infarcts including 1 large cerebellar infarct, left posterior temporal, left occipital and right occipital infarct Chest x-ray: No acute change Emergency room he was started on aspirin 325 mg. He was on 81 mg retirement Also Eliquis was held from the emergency room for possible need of any surgical intervention 10/19/2021 Patient is with vascular dementia which is looks like his baseline, however he has trace most questions appropriately. He has low tone of voice. He still complaining of from weakness on the right side, he cannot raise his right hand above his head compared to left side, also he cannot raise his right leg of bed as left side. It looks like there is some comments of chronicity from multiple strokes but patient states its worse on this admission. Patient is able to eat 50% of his diet today Patient yesterday was transferred to the ICU for the bradycardia, however looks his stable and beta jignesh was discontinued after cardiology evaluated the pat ient. He is on Eliquis and aspirin now. Vascular surgery evaluated the patient and recommended no surgical intervention MRI/A of the brain is pending, need the tachycardia and to be contacted prior to procedure which is pending for now. Patient was transferred to the select floor today Objective - Vital Signs Vital signs: Vital Signs Temp 97.7 F 10/19/21 16:30 Pulse 43 L 10/19/21 16:30 Resp 16 10/19/21 16:30 BP 147/82 10/19/21 16:30 Pulse Ox 91 L 10/19/21 16:30 Intake & Output 10/19/21 10/19/21 10/20/21 06:59 18:59 06:59 Intake Total 210 150 Output Total 0 575 Balance 210 -425 Weight 61.7 kg 61.7 kg Intake: Oral 210 150 Output: Urine 0 575 Other: Voiding Method External Catheter Urinal # Voids 1 - Exam -GENERAL: The patient is alert and oriented x1, not in any acute distress. Mild malnutrition HEENT: Pupils are round and equally reacting to light. EOMI. No scleral icterus. No conjunctival pallor. Normocephalic, atraumatic. No pharyngeal erythema. No thyromegaly. CARDIOVASCULAR: S1 and S2 present. No murmurs, rubs, or gallops. PULMONARY: Chest is clear to auscultation, no wheezing or crackles. ABDOMEN: Soft, nontender, nondistended, normoactive bowel sounds. No palpable organomegaly. MUSCULOSKELETAL: No joint swelling or deformity. EXTREMITIES: No cyanosis, clubbing, or pedal edema. -NEUROLOGICAL: Patient has no voice speech but to rest of cranial nerves are grossly intact. Weakness on both sides minimally on the right side Sensation intact. Meningeal signs are absent SKIN: No rashes. No petechiae - Labs CBC & Chem 7: 10/19/21 03:26 10/19/21 03:26 Labs: Abnormal Lab Results - Last 24 Hours (Table) 10/19/21 10/19/21 Range/Units 03:26 03:26 Plt Count 148 L (150-450) k/uL Sodium 136 L (137-145) mmol/L Carbon Dioxide 34 H (22-30) mmol/L Assessment and Plan Assessment: Right-sided hemiparesis suspicious for acute stroke Elevated troponin Carotid artery disease, thrombosis of the entire right internal carotid artery, with 50% stenosis on the left internal carotid artery Mild to moderate calories 13 malnutrition History of coronary artery disease status post 3-4 vessel CABG History of CVA, multiple infarcts including large left cerebellar, bilateral occipital and left temporal infarcts COPD, no acute exacerbation History of DVT/PE on Eliquis Attention Hyperlipidemia History of and time Chronic back pain Anxiety and depression, not an active issue Plan: This is a pleasant 71 years old male who presents with multiple strokes on the CT of the brain, although most R not acute, elevated troponin Continue with aspirin 81 325 mg milligrams, continue with home dose of Eliquis 5 mg MRI/MRA of the brain is pending Neurology consult on the case Protection Manager for consulted for elevated troponin and bradycardia, medication adjustment Vascular surgery team consulted for carotid artery disease, they recommended no surgical intervention Nutrition evaluation Labs and medication were reviewed.. Continue same treatment. Continue with symptomatic treatment. Resume home medication. Monitor lytes and vitals. DVT and GI prophylaxis. Further recommendations depends on the clinical course of the patient DVT prophylaxis Eliquis, on hold GI Prophylaxis: Pepcid PT/OT: Pending Prognosis is guarded
[2021-10-20] MEDS: SODIUM CHLORIDE 0.9% 1,000 ML IV SCH (06:27)
[2021-10-20 06:31] LABS: Basophils # (A) 0.1 k/uL (0-0.2); Basophils % (A) 1 %; Eosinophils # (A) 0.3 k/uL (0-0.7); Eosinophils % (A) 4 %; HCT 39.9 % (39.0-53.0); HGB 13.8 gm/dL (13.0-17.5); Lymphocytes # (A) 1.8 k/uL (1.0-4.8); Lymphocytes % (A) 26 %; MCH 32.2 pg (25.0-35.0); MCHC 34.5 g/dL (31.0-37.0); MCV 93.2 fL (80.0-100.0); Mean Platelet Volume 7.3; Monocytes # (A) 0.6 k/uL (0-1.0); Monocytes % (A) 9 %; Neutrophils # (A) 3.8 k/uL (1.3-7.7); Neutrophils % (A) 57 %; Platelet Count 144 k/uL (150-450); RBC 4.28 m/uL (4.30-5.90); RDW 13.5 % (11.5-15.5); WBC 6.7 k/uL (3.8-10.6)
[2021-10-20 06:51] LABS: Calcium 9.2 mg/dL (8.4-10.2); Potassium 5.3 mmol/L (3.5-5.1)
[2021-10-20] MEDS: FUROSEMIDE 40 MG TAB PO SCH ×2 (08:29→17:47)
[2021-10-20] MEDS: busPIRone HCl 10 MG TAB PO SCH ×2 (08:30→20:10)
[2021-10-20] MEDS: APIXABAN 5 MG TAB PO SCH ×2 (08:30→20:10)
[2021-10-20] MEDS: FAMOTIDINE 20 MG TAB PO SCH (08:30)
[2021-10-20] MEDS: THIAMINE 100 MG TAB PO SCH ×2 (08:30→20:10)
[2021-10-20] MEDS: ASPIRIN 81 MG PO SCH (08:30)
[2021-10-20] MEDS: ESCITALOPRAM 5 MG TAB PO SCH (08:36)
[2021-10-20] MEDS: DOCUSATE 100 MG CAP PO SCH ×2 (08:36→17:47)
[2021-10-20] MEDS: ISOSORBIDE MONONITRATE ER 30 MG TAB.ER.24H PO SCH (08:39)
[2021-10-20] MEDS: lisinopriL 5 MG TAB PO SCH (08:39)
[2021-10-20] MEDS: GABAPENTIN 100 MG CAP PO SCH ×2 (08:39→20:11)
[2021-10-20] MEDS: SPIRONOLACTONE 25 MG TAB PO SCH (08:39)
[2021-10-20] MEDS: ALBUTEROL NEBULIZED 2.5 MG/3 ML INHALATION PRN (09:05)
--- NOTE | 2021-10-20 12:32 | P.PN ---
Subjective Progress Note Date: 10/20/21 Principal diagnosis: Carotid stenosis Patient is seen and examined sitting up in bed. He is more awake and alert today. He is following commands. He states he had carotid intervention 1-2 years ago done at [facility]. He is unsure what procedure he had done. He states he has not really been following with anybody since. Today he has increased strength in his right upper and lower extremity. MRI ordered and pending results. He is on Eliquis, aspirin and high-dose statin. Objective - Vital Signs Vital signs: Vital Signs Temp 98.1 F 10/20/21 04:00 Pulse 62 10/20/21 04:00 Resp 18 10/20/21 04:00 BP 116/75 10/20/21 04:00 Pulse Ox 93 L 10/20/21 04:00 Intake & Output 10/19/21 10/20/21 10/20/21 18:59 06:59 18:59 Intake Total 150 Output Total 575 500 Balance -425 -500 Weight 61.7 kg 55.5 kg Intake: Oral 150 Output: Urine 575 500 Other: Voiding Method Urinal Urinal # Voids 1 - Exam General appearance: The patient is alert, oriented, appears in no acute distress. HET: Head is normocephalic and atraumatic. Pupils are equal and reactive. Neck: Supple without lymphadenopathy. Trachea midline. Heart: S1 S2. Regular rate and rhythm. Lungs: No crackles or wheezes are heard. Abdomen: Soft, nontender, nondistended. Extremities: Normal skin color and turgor. No cyanosis, rash, ulceration, clubbing, or edema. Neurological: No focal deficits. Patient with a equal upper extremity strength. Right lower extremity with increased strength and tone today. He is able to lift his leg off the bed and has good strength. - Labs CBC & Chem 7: 10/20/21 06:11 10/20/21 06:11 Labs: Abnormal Lab Results - Last 24 Hours (Table) 10/20/21 10/20/21 Range/Units 06:11 06:11 RBC 4.28 L (4.30-5.90) m/uL Plt Count 144 L (150-450) k/uL Potassium 5.3 H (3.5-5.1) mmol/L Carbon Dioxide 34 H (22-30) mmol/L Glucose 102 H (74-99) mg/dL Assessment and Plan Assessment: 1. Carotid stenosis, right ICA occlusion. Left ICA approximately 50% per CT angiogram, with no limiting flow to left ICA per carotid US 2. Right-sided weakness, TIA versus stroke 3. History of previous strokes 4. Coronary artery disease 5. History of pulmonary embolism 6. History of hypertension and hyperlipidemia Plan: 1. Carotid duplex ordered and reviewed 2. Continue high-dose statin 3. Continue aspirin and Eliquis 4. Await MRI results 5. No acute surgical intervention planned. Patient to have outpatient follow up with vascular surgery. The impression and plan of care has been dictated as directed. Dr. Morgan I performed a history and examination of this patient, discussed the same with the dictator. I agree with the dictator's note ,documented as a scribe. Any additional findings or plans will be noted.
--- NOTE | 2021-10-20 12:40 | P.PN ---
Subjective This is a 71-year-old male with a past medical history significant for coronary artery disease with previous CABG in 2017 (REID to LAD, SVG to diagnoal branch and RCA), carotid stenosis, ischemic cardiomyopathy, hypertension, hyperlipidemia, and nicotine dependence, paroxysmal atrial fibrillation (on Eliquis), CVA. Patient used to follow in the office with Dr. North but has not been seen in the office since 2018. We have been asked to see the patient in consultation for elevated troponin. Patient presented to the emergency department with progressive change in mental status. Patient seen and examined at bedside, no acute distress, he is working with PT this morning. Continues to be slightly confused. BP 142/67 HR 96, afebrile, On room air. He is in sinus mechanism HR high 40s to 90s. Labs reviewed, WBC 6.7, hemoglobin 13, platelets 144, sodium 137, potassium 5.3, P1 19, serum creatinine 1.1, magnesium 2.0 He's currently maintained on Eliquis 5 mg twice a day, aspirin 81 mg daily, atorvastatin 80 mg nightly, Lasix 40 mg twice a day, Imdur 30 mg daily, lisinopril 5 mg daily, spironolactone 25 mg daily GENERAL: In no acute distress. NECK: Supple without JVD or thyromegaly. LUNGS: Breath sounds clear to auscultation bilaterally. Respiration equal and unlabored. No wheezes, rales or rhonchi. HEART: Regular rate and rhythm without systolic ejection murmur at base, No rubs or gallops. S1 and S2 heard. EXTREMITIES: no edema. No clubbing or cyanosis. Peripheral pulses intact. ASSESSMENT Altered mental status, possible TIA Mild Elevated troponin, not indicative of acute ischemic event History of prior CVA History of coronary artery disease with previous CABG in 2017 (REID to LAD, SVG to diagnoal branch and RCA) History of ischemic cardiomyopathy Sinus bradycardia, beta jignesh continues to be on hold History of hypertension Hyperlipidemia History of chronic nicotine dependence Paroxysmal atrial fibrillation (on Eliquis) PLAN -We will continue to hold beta jignesh -Continue Eliquis, aspirin, statin, Lasix, Imdur, Lisinopril, and spironolactone -Further recommendations based on clinical course Objective - Vital Signs Vital signs: Vital Signs Temp 98.3 F 10/20/21 08:00 Pulse 94 10/20/21 09:17 Resp 18 10/20/21 08:00 BP 142/67 10/20/21 08:00 Pulse Ox 97 10/20/21 08:00 Intake & Output 10/19/21 10/20/21 10/20/21 18:59 06:59 18:59 Intake Total 150 240 Output Total 575 500 Balance -425 -500 240 Weight 61.7 kg 55.5 kg Intake: Oral 150 240 Output: Urine 575 500 Other: Voiding Method Urinal Urinal # Voids 1 - Labs CBC & Chem 7: 10/20/21 06:11 10/20/21 06:11 Labs: Abnormal Lab Results - Last 24 Hours (Table) 10/20/21 10/20/21 Range/Units 06:11 06:11 RBC 4.28 L (4.30-5.90) m/uL Plt Count 144 L (150-450) k/uL Potassium 5.3 H (3.5-5.1) mmol/L Carbon Dioxide 34 H (22-30) mmol/L Glucose 102 H (74-99) mg/dL
--- NOTE | 2021-10-20 12:56 | P.PN ---
Subjective Progress Note Date: 10/20/21 10/20/2021: Patient is laying comfortably in the bed. Denies any pain, any headache. Still has tremors of the left hand. Telemetry monitoring showing couplets, triplets, PVC, PAC. No other arrhythmia. 10/19/2021: Patient initially seen with Dr. High yesterday. Please refer to her note for detail. Patient has presented with right-sided weakness. No other neurological symptoms. No visual symptoms. Patient is laying comfortably in the bed. Denies any headache, no numbness tingling or weakness. CT head showed no acute process. There is evidence of large old left cerebellar infarct as well as left temporal occipital infarct and a small right occipital infarct. Patient lives with his son and his and grandchildren. He uses cane most of the time. No walker. Objective - Vital Signs Vital signs: Vital Signs Temp 98.3 F 10/20/21 08:00 Pulse 94 10/20/21 09:17 Resp 18 10/20/21 08:00 BP 142/67 10/20/21 08:00 Pulse Ox 97 10/20/21 08:00 Intake & Output 10/19/21 10/20/21 10/20/21 18:59 06:59 18:59 Intake Total 150 240 Output Total 575 500 Balance -425 -500 240 Weight 61.7 kg 55.5 kg Intake: Oral 150 240 Output: Urine 575 500 Other: Voiding Method Urinal Urinal # Voids 1 - Exam Gen.: The patient is resting in the bed. He is well-nourished. He is in no acute distress. HEENT: Head is atraumatic, normocephalic. There is a tremor of the head, jaw and eyes and outstretched hands. Fundus not visualized. There is no scleral icterus. Mucous membranes are moist. Neck: Without carotid bruits Heart: Regular rate and rhythm Extremities: Without edema Neurological examination Mental status: The patient is awake and alert. Patient knows it is October 2021 and thinks it is either the of the . He knows it is in [facility] in a hospital. The patient's speech is clear. Patient has mild tremor of his voice as well. Patient can name and repeat very well. Cranial nerves: Pupils are equal at 4 mm and reactive. Visual lewis are full to confrontation, with no neglect. Extraocular movements are intact. Facial sensation is intact. No obvious facial droop. Uvula and palate are midline. Shoulder shrug is symmetric. Tongue protrudes midline, with tremor. Motor: Bilateral upper extremity strength is 5/5, except right deltoid which is weak from arthritis. Hip flexion is 4+ bilaterally, ankle dorsiflexion are normal. Toe extension is very weak, 2 on the right, 5 on left. Coordination: There is a significant component of postural and intention tremor of the bilateral upper extremities, left greater than right. There is mild tremor at rest of the left hand. There is no dysmetria with finger to nose testing. Deep tendon reflexes: 2-3+/4+ in the bilateral upper extremities. Bilateral patellar reflexes 3+/4+. Plantar responses are flexor bilaterally. Sensation: Grossly intact to light touch throughout. There is no extinction with double simultaneous stimulation. - Labs CBC & Chem 7: 10/20/21 06:11 10/20/21 06:11 Labs: Abnormal Lab Results - Last 24 Hours (Table) 10/20/21 10/20/21 Range/Units 06:11 06:11 RBC 4.28 L (4.30-5.90) m/uL Plt Count 144 L (150-450) k/uL Potassium 5.3 H (3.5-5.1) mmol/L Carbon Dioxide 34 H (22-30) mmol/L Glucose 102 H (74-99) mg/dL Assessment and Plan Assessment: 1. TIA versus stroke in a patient with multiple vascular risk factors and previous strokes. 2. Right ICA occlusion, 3. Essential tremor. 4. Hypertension 5. Coronary artery disease. 6. Chronic tobacco use. Patient has smoked at least 1 pack per day since age 17, and was smoking up to 4 packs per day prior to quitting 1 month ago. Plan: 1. Await MRI/MRA brain to evaluate for stroke. 2. Continue high-dose statin 3. Continue Eliquis. Patient also started on aspirin 81 mg daily. 4. Lipid panel with cholesterol 139, LDL 73, HDL 45 and triglycerides 98.3 on 10/19/2021. Continue high-dose statins Lipitor 80 mg daily. His hemoglobin A1c 5.5 on 08/28/2021 5. 2-D echocardiogram revealed normal left-ventricular size and left ventricular wall thickness. Moderate global hypokinesis of the left ventricle. EF is severely impaired, 25-30%. Left atrium is mildly dilated. 6. CTA of the head and neck reported thromboses of the entire right ICA. There is significant stenosis of the distal right vertebral artery. The left vertebral artery is small and does not appear to be going to the basal artery. No intracranial hemodynamic stenosis. Infarcts noted in the left cerebellar hemisphere in the left temporal occipital and parietal lobes. There is approximate 50% stenosis of the region of the left ICA. 7. Carotid Doppler revealed occlusion of the right ICA. Nonvisualization of the left vertebral artery. Atheromatous plaquing left ICA without flow limiting stenosis. Addendum 6:45 PM: MRI of the brain revealed evidence of subacute bilateral scattered cerebral vascular accidents, consider embolic phenomenon. Findings are superimposed over chronic small vessel ischemic changes, left cerebellar hemisphere atrophy. Mild sinus disease. MRA of the brain revealed right ICA occlusion. Posterior circulation is diminutive, there is evidence of prior infarct involving the left cerebellar hemisphere. Basilar artery shows some more normal caliber centrally, limitations as described. Although patient has chronic right ICA occlusion, but the strokes are bilateral, suggestive of cardiac etiology. We will switch from aspirin to Plavix 75 mg daily. Continue Eliquis 5 mg twice a day. Recommend cardiology consultation for possible transesophageal echocardiogram, if okay with cardiology.
--- NOTE | 2021-10-20 13:04 | CDI ---
Documentation Clarification Form Date: 10/20/2021 12:54:07 PM From: Kathleen Hurtado CCS, CCDS Admit Date: 10/18/2021 05:59:00 AM Patient Name: Ben Mendoza Visit Number: [id number] Discharge Date: ATTENTION: The Clinical Documentation Specialists (CDI) and [employer] Coding Staff appreciate your assistance in clarifying documentation. Please respond to the clarification below the line at the bottom and electronically sign. The CDI & [employer] Coding staff will review the response and follow-up if needed. Please note: Queries are made part of the Legal Health Record. If you have any questions, please contact the author of this message via ITS. Dr. Ben Lorenzo. Sheet: Mild to Moderate Malnutrition is documented in the 10/19 Attending Progress Note. Additional clarification regarding the specific severity of malnutrition is requested. History/Risk Factors per the 10/18 H/P: CAD status post CABG, COPD, CVA, DVT on Eliquis, Hyperlipidemia, hypertension, PE, Hand tremors, Emphysema, Back Pain, Anxiety & Depression. Former smoker. Clinical Indicators: Presented to the ED 10/18 via EMS from a nursing facility with right upper extremity weakness and stroke symptoms. Admitted with TIA VS: T 97.6, P 59, R 20, BP 145/81, PO 94 RA 10/18 LAB: Hgb 12.8, BUN 27, ALT 76, Troponin 0.026, 0.039, 0.039; Total Protein 5.6, Albumin 3.3. 10/18 BMI: 16.6. Weight 62.142 kg, Height 6ft 10/20 Weight 55.5 kg 10/18 Nursing Assessment: Tolerated 25% Dinner, Passed swallow screen Treatment 10/18: INH Ventolin, INH Duoneb, po Home meds Please clarify the type of malnutrition, if known: [ ] Mild Protein-Calorie Malnutrition [ ] Moderate Protein-Calorie Malnutrition [ ] Other condition, please specify [ ] Unable to Determine (Template Last Revised: January 2021) refer to note please JANIYA
--- NOTE | 2021-10-20 14:16 | P.PN ---
Subjective Progress Note Date: 10/20/21 Principal diagnosis: TIA This is a 71-year-old white male patient who was brought in from the [facility] by EMS on 10/18/2021 for evaluation of right upper extremity weakness that was noticed a little over then an hour prior to presentation. Patient could not walk and she normally ambulates with a walker at baseline. EKG in the ER revealed incomplete left bundle branch block, sinus mechanism, and the rate was as low as 20, although we don't have recorded strips. CT of the brain showed a large old left posterior temporal lobe and left occipital lobe infarct without c hange. There was a large old left cerebellar infarct in the inferior aspect of the hemisphere, and there was a small right occipital lobe infarct without much change, and chronic small vessel ischemia in the parietal lobes which was more noticeable compared his previous CT of the brain from 01/22/2020. Patient is a poor historian, he is quite confused, he is only oriented to self, he did not know he was in the hospital. Could not state the date. Seems to be slow with responses, takes time to process information. But follows all simple commands, moves all 4 extremities, no garbled speech, face symmetric, no unilateral weakness or paralysis noted. His initial neurological symptoms seem to have resolved. However his baseline is not known. Breathing comfortably, does admit to history of smoking. Chest x-ray showed cardiomegaly, slightly enlarged heart, mild pulmonary fibrotic changes at the lung bases. CT angiography of the brain showed thrombosis of the entire right internal carotid artery, there is significant stenosis of the distal right vertebral artery, and the left verteb ral artery is small and does not appear to be flow into the basilar artery, no intracranial hemodynamic stenosis, and infarcts were noted in the left cerebellar hemisphere and left temporal and occipital and parietal lobes area there was approximately 50% stenosis of the origin of the left internal carotid artery. Patient admission labs were reviewed showing white blood cell, 6.9, hemoglobin is 12.8, INR was 1.1, electrolytes and renal profile were unremarkable, patient had a mild troponin elevation, initial troponin was within normal limits at 0.026, and subsequent troponins were 0.0392. Urinalysis showed trace protein, small nitrites, but no clear evidence of pneumonia, COVID- 19 PCR was negative. Patient's medical history includes COPD, previous history of CVA/TIA, previous history of DVT on Eliquis, hypertension, hyperlipidemia, coronary artery disease with history of 3-4 vessel CABG at [facility], history of pulmonary embolism, chronic back pain, anxiety and depression. Patient is being followed by neurology, he is on 81 mg aspirin, high intensity statin in the form of Lipitor 80 mg daily, she was restarted on his home dose Eliquis 5 mg twice a day. This morning he seen in the intensive care unit, resting comfortably in bed, denies any specific complaints, currently on 2 L of oxygen his pulse ox of 94%, breathing comfortable, lung sounds are clear, diminished. No rhonchi or wheezing, no coughing, blood pressure is 100/78. Progress note dated 10/20/2021. This is a patient who was initially seen in the intensive care unit, for TIA/CVA. The patient developed sudden right-sided weakness on October 18. Currently, he is resting comfortably. He is receiving nasal cannula. He's not receiving any IV fluids. He is a previous history of CVA, dementia, bra dycardia, previous history of PE and DVT, tobacco use with a possible COPD, and CAD, with previous 3-4 vessel bypass grafting at [facility]. Currently, he is resting comfortably without any major complaints. Laboratory data includes a white count of 6.7, hemoglobin 13.8 hematocrit 39.9, platelet count 144,000. Sodium 137, potassium 5.3, chlorides 99, CO2 34, anion gap 4, BUN 19, with creatinine of 1.12. Carotid Doppler shows occlusion of the right internal carotid artery, and nonvisualization of the left vertebral artery. Objective - Vital Signs Vital signs: Vital Signs Temp 97.9 F 10/20/21 12:00 Pulse 88 10/20/21 12:00 Resp 16 10/20/21 12:00 BP 112/78 10/20/21 12:00 Pulse Ox 94 L 10/20/21 12:00 Intake & Output 10/19/21 10/20/21 10/20/21 18:59 06:59 18:59 Intake Total 150 600 Output Total 575 500 Balance -425 -500 600 Weight 61.7 kg 55.5 kg Intake: Oral 150 600 Output: Urine 575 500 Other: Voiding Method Urinal Urinal # Voids 1 - Exam No acute distress, a bit lethargic, does respond, but does so slowly. 2 L saturation is 94%. HEENT examination is grossly unremarkable. Neck supple. Full range of motion. No adenopathy thyromegaly or neck vein distention. Cardiovascular examination reveals regular rhythm rate. S1-S2 normal. No S3 or S4. No discernible murmur noted. Heart sounds are distant. Heart rate 88 bpm. Lungs reveal mostly clear breath sounds. Scattered rhonchi are noted. No wheezes or crackles. Breath sounds equal. Abdomen soft bowel sounds are heard. No masses or tenderness. Extremities are intact. No cyanosis clubbing or edema. Skin is without rash or lesion. Neurologic examination is brief but nonfocal. - Labs CBC & Chem 7: 10/20/21 06:11 10/20/21 06:11 Labs: Abnormal Lab Results - Last 24 Hours (Table) 10/20/21 10/20/21 Range/Units 06:11 06:11 RBC 4.28 L (4.30-5.90) m/uL Plt Count 144 L (150-450) k/uL Potassium 5.3 H (3.5-5.1) mmol/L Carbon Dioxide 34 H (22-30) mmol/L Glucose 102 H (74-99) mg/dL Assessment and Plan Assessment: #1. Acute TIA versus CVA with sudden onset of right-sided weakness on 10/18/2021, the right-sided weakness has previously resolved. #2. Weakness, inability to ambulate related to the above. #3. Total right ICA occlusion, vascular surgery has been consulted. #4. Previous history of CVA. #5. Possible vascular dementia. #6. Bradycardia, in sinus mechanism, with reported rate as low as 20, nonsustained, beta blockers have been adjusted per cardiology. #7. Previous history of PE and DVT, on Eliquis on a chronic basis. #8. History of smoking, and suspect underlying COPD. #9. History of coronary artery disease with previous history of 3-4 vessel coronary artery bypass at the [facility]. #10. Previous history of CA. #11. Hypertension. #12. Hyperlipidemia. #13. History of right carotid stenosis. #14. History of anxiety and depression. #15. History of medical marijuana use. Plan: Plan dated 10/20/2021. Currently respiratory status is stable. He is on 2 L. His saturations are 94- 95%. His coronavirus testing was negative. His blood thinner, Eliquis, has been restarted. Vascular surgery has been consulted for the right total internal carotid artery occlusion. We will continue to follow make recommendations were appropriate. Appreciate input from neurology. The patient was stable to be transferred out of the intensive care unit. Time with Patient: Less than 30
[2021-10-20] MEDS: IPRATROPIUM-ALBUTEROL 3 ML NEB INHALATION PRN ×2 (15:52→20:33)
--- NOTE | 2021-10-20 16:33 | MR ---
EXAMINATION TYPE: MR angio head wo con DATE OF EXAM: 10/20/2021 COMPARISON: Carotid Doppler same date HISTORY: Right ICA occlusion. TECHNIQUE: Time of flight images focusing on the [place] of [place] were performed without contrast. Th ree-dimensional reconstructions were performed on an alternate workstation. FINDINGS: There is occlusion of the right internal carotid artery. Cross-filling is noted, anterior a nd posterior circulation are patent. There is no evident embolus or dissection. Mild prominence of th e level of the distal right internal carotid artery is thought to represent postocclusion appearance than aneurysm. Asymmetric atrophy noted at the left cerebellar hemisphere, the basilar artery shows s tenosis distal to the confluence, right and left vertebral arteries appear diminutive, posterior infe rior cerebellar artery on the right may be present, the inferior cerebellum not entirely included on the exam, posterior first cerebellar artery on the left not identified with certainty. IMPRESSION: Right internal carotid artery occlusion. Posterior circulation is diminutive, there is evidence of pr ior infarct involving the left cerebellar hemisphere. Basilar artery shows a more normal caliber cent rally, limitations as described.
--- NOTE | 2021-10-20 16:50 | MR ---
MR brain without contrast HISTORY: Cerebrovascular accident Multiplanar multisequence imaging obtained through the brain, correlation MRA same date, prior MRI br ain 03/10/2015 Scattered bilateral foci of restricted diffusion are present within the brain in both the distributio n of the anterior and posterior circulation, there is corresponding hyperintensity on T2-weighted seq uences, at least 15 or greater foci are present. There are also subcortical, periventricular, perical losal confluent and scattered hyperintensities on inversion recovery T2-weighted sequences consistent with underlying microvascular angiopathy, periventricular locations shows some small punctate foci o f probable encephalomalacia. There is no hemorrhage or hydrocephalus. Cortical atrophy is present. Th e left cerebellar hemisphere is atrophic and shows corresponding hyperintensity and inversion recover y T2-weighted sequences which is developed in the interval compared to prior MRI brain. The orbits ar e symmetric. Cerebellopontine angles, corpus callosum, pituitary, cervical medullary junction are wit hin normal limits. There is mild inflammatory change in ethmoid air cells. IMPRESSION: There is evidence of subacute bilateral scattered cerebral vascular accidents, consider e mbolic phenomenon. Findings are superimposed over chronic small vessel ischemic changes, left cerebel lar hemisphere atrophy. Mild sinus disease.
--- NOTE | 2021-10-20 18:41 | P.PN ---
Subjective This is a pleasant 71 years old male with past medical history of Coronary Artery Disease status post 3-4 vessel CABG at [facility] , COPD, CVA/TIA, Deep Vein Thrombosis on Eliquis , Hyperlipidemia, Hypertension, Pulmonary Embolus, hand tremors, emphysema, back pain, anxiety and depression Patient was sent from his [facility] at [facility] for Right sided hemiparesis. Patient is awake and alert he was in the hospital but is disoriented to time and person. He has slightly slurred slow Speech, at Times Hard to Understand and He Has to Repeat This Sentence. He Denies Any Headache. No Numbness. No Nausea Vomiting or Chest Pain or Dyspnea. No Diarrhea or Urinary Complaints. No Fever. Patient States That Both Sides Are Weak but the Right Side Is Weaker Than Usual. Nonsmoker Patient is a slightly bradycardic with heart rate 44-51 this morning, afebrile and Restoril vitals are stable. Labs checked and they show an unremarkable CBC, INR, BMP and liver enzymes. First troponin normal 0.02, then total elevated troponin 0.0392 Urine sample looks concentrated but not suspicious for infection winkler virus undetected. CT angiogram of the head and neck: Thrombosis of the entire right internal carotid arteries. There is significant stenosis of the distal right vertebral artery. CT of the brain: No acute process, however showing multiple old infarcts including 1 large cerebellar infarct, left posterior temporal, left occipital and right occipital infarct Chest x-ray: No acute change Emergency room he was started on aspirin 325 mg. He was on 81 mg [facility] Also Eliquis was held from the emergency room for possible need of any surgical intervention 10/19/2021 Patient is with vascular dementia which is looks like his baseline, however he has trace most questions appropriately. He has low tone of voice. He still complaining of from weakness on the right side, he cannot raise his right hand above his head compared to left side, also he cannot raise his right leg of bed as left side. It looks like there is some comments of chronicity from multiple strokes but patient states its worse on this admission. Patient is able to eat 50% of his diet today Patient yesterday was transferred to the ICU for the bradycardia, however looks his stable and beta jignesh was discontinued after cardiology evaluated the pat ient. He is on Eliquis and aspirin now. Vascular surgery evaluated the patient and recommended no surgical intervention MRI/A of the brain is pending, need the tachycardia and to be contacted prior to procedure which is pending for now. Patient was transferred to the select floor today 10/20/2021 patient today showing improvement in his right sided weakness, his weakness almost came back to his baseline, he can move both upper extremity and lower extremities symmetrically. No other evidence of cranial nerve palsy or effect. MRI of the brain showing bilateral subacute scattered cerebral accident consider embolic phenomenon. MRA of the brain: Right internal carotid artery occlusion. Posterior circulation is diminutive, there is evidence of prior infarct involving the left cerebellar hemisphere.MRI of the brain showing bilateral subacute scattered cerebral accident consider embolic phenomenon. MRA of the brain: Right internal carotid artery occlusion. Posterior circulation is diminutive, there is evidence of prior infarct involving the left cerebellar hemisphere. Other than that he is hemodynamically stable labs are stable. He is continued on aspirin 81 mg, Eliquis. While metoprolol was discontinued by education department chair and his bradycardia improved significantly. Neurology and vascular surgery team already on the case Objective - Vital Signs Vital signs: Vital Signs Temp 98.3 F 10/20/21 08:00 Pulse 94 10/20/21 09:17 Resp 18 10/20/21 08:00 BP 142/67 10/20/21 08:00 Pulse Ox 97 10/20/21 08:00 Intake & Output 10/19/21 10/20/21 10/20/21 18:59 06:59 18:59 Intake Total 150 240 Output Total 575 500 Balance -425 -500 240 Weight 61.7 kg 55.5 kg Intake: Oral 150 240 Output: Urine 575 500 Other: Voiding Method Urinal Urinal # Voids 1 - Exam -GENERAL: The patient is alert and oriented x1, not in any acute distress. Mild malnutrition HEENT: Pupils are round and equally reacting to light. EOMI. No scleral icterus. No conjunctival pallor. Normocephalic, atraumatic. No pharyngeal erythema. No thyromegaly. CARDIOVASCULAR: S1 and S2 present. No murmurs, rubs, or gallops. PULMONARY: Chest is clear to auscultation, no wheezing or crackles. ABDOMEN: Soft, nontender, nondistended, normoactive bowel sounds. No palpable organomegaly. MUSCULOSKELETAL: No joint swelling or deformity. EXTREMITIES: No cyanosis, clubbing, or pedal edema. -NEUROLOGICAL: Patient Ruddy nerves are grossly intact. Right-sided weakness is significantly improved and is comparable to the left side . Sensation intact. Meningeal signs are absent SKIN: No rashes. No petechiae - Labs CBC & Chem 7: 10/20/21 06:11 10/20/21 06:11 Labs: Abnormal Lab Results - Last 24 Hours (Table) 10/20/21 10/20/21 Range/Units 06:11 06:11 RBC 4.28 L (4.30-5.90) m/uL Plt Count 144 L (150-450) k/uL Potassium 5.3 H (3.5-5.1) mmol/L Carbon Dioxide 34 H (22-30) mmol/L Glucose 102 H (74-99) mg/dL Assessment and Plan Assessment: Right-sided hemiparesis suspicious for acute stroke, improved. MRI bilateral subacute infarct, rule out embolic phenomena Carotid artery disease, thrombosis of the entire right internal carotid artery, with 50% stenosis on the left internal carotid artery Bradycardia improved with discontinuing of metoprolol Mild to moderate calories protein malnutrition History of coronary artery disease status post 3-4 vessel CABG History of CVA, multiple infarcts including large left cerebellar, bilateral occipital and left temporal infarcts COPD, no acute exacerbation History of DVT/PE on Eliquis Attention Hyperlipidemia History of and time Chronic back pain Anxiety and depression, not an active issue Plan: This is a pleasant 71 years old male who presents with multiple strokes on the CT of the brain, although most R not acute, elevated troponin Continue with aspirin 81 325 mg milligrams, continue with home dose of Eliquis 5 mg Follow-up with urology and vascular surgery regarding possible embolic phenomena. Camera Engineer on the case Keep holding/discontinuing of metoprolol, bradycardia improved Labs and medication were reviewed.. Continue same treatment. Continue with symptomatic treatment. Resume home medication. Monitor lytes and vitals. DVT and GI prophylaxis. Further recommendations depends on the clinical course of the patient DVT prophylaxis Eliquis, on hold GI Prophylaxis: Pepcid PT/OT: From [facility] Prognosis is guarded
[2021-10-20] MEDS: MONTELUKAST 10 MG TAB PO SCH (20:10)
[2021-10-20] MEDS: ATORVASTATIN 80 MG TAB PO SCH (20:11)
[2021-10-20] MEDS: CLOPIDOGREL 75 MG TAB PO SCH (20:13)
[2021-10-20] MEDS: LORazepam 0.5 MG TAB PO PRN (22:40)
[2021-10-21] MEDS: DOCUSATE 100 MG CAP PO SCH ×3 (03:33→16:03)
[2021-10-21 06:42] LABS: Basophils % (A) 1 %; Eosinophils # (A) 0.3 k/uL (0-0.7); Eosinophils % (A) 4 %; HCT 42.8 % (39.0-53.0); HGB 14.1 gm/dL (13.0-17.5); Lymphocytes # (A) 1.3 k/uL (1.0-4.8); Lymphocytes % (A) 19 %; MCH 31.3 pg (25.0-35.0); MCHC 32.9 g/dL (31.0-37.0); MCV 95.3 fL (80.0-100.0); Mean Platelet Volume 7.3; Monocytes # (A) 0.6 k/uL (0-1.0); Monocytes % (A) 9 %; Neutrophils # (A) 4.4 k/uL (1.3-7.7); Neutrophils % (A) 66 %; Platelet Count 145 k/uL (150-450); RBC 4.49 m/uL (4.30-5.90); RDW 13.5 % (11.5-15.5); WBC 6.8 k/uL (3.8-10.6)
[2021-10-21 06:49] LABS: Calcium 8.9 mg/dL (8.4-10.2); Potassium 4.1 mmol/L (3.5-5.1)
[2021-10-21] MEDS: SODIUM CHLORIDE 0.9% 1,000 ML IV SCH (10:17)
[2021-10-21] MEDS: FUROSEMIDE 40 MG TAB PO SCH ×2 (10:47→16:03)
[2021-10-21] MEDS: lisinopriL 5 MG TAB PO SCH (10:48)
[2021-10-21] MEDS: APIXABAN 5 MG TAB PO SCH ×2 (10:48→21:43)
[2021-10-21] MEDS: FAMOTIDINE 20 MG TAB PO SCH (10:48)
[2021-10-21] MEDS: GABAPENTIN 100 MG CAP PO SCH ×2 (10:48→21:42)
[2021-10-21] MEDS: busPIRone HCl 10 MG TAB PO SCH ×2 (10:48→21:42)
[2021-10-21] MEDS: SPIRONOLACTONE 25 MG TAB PO SCH (10:48)
[2021-10-21] MEDS: ESCITALOPRAM 5 MG TAB PO SCH (10:48)
[2021-10-21] MEDS: ISOSORBIDE MONONITRATE ER 30 MG TAB.ER.24H PO SCH (10:48)
[2021-10-21] MEDS: CLOPIDOGREL 75 MG TAB PO SCH (10:48)
[2021-10-21] MEDS: THIAMINE 100 MG TAB PO SCH ×2 (10:49→21:42)
[2021-10-21] MEDS: IPRATROPIUM-ALBUTEROL 3 ML NEB INHALATION PRN ×2 (11:02→15:29)
--- NOTE | 2021-10-21 12:20 | P.PN ---
Subjective This is a pleasant 71 years old male with past medical history of Coronary Artery Disease status post 3-4 vessel CABG at , COPD, CVA/TIA, Deep Vein Thrombosis on Eliquis , Hyperlipidemia, Hypertension, Pulmonary Embolus, hand tremors, emphysema, back pain, anxiety and depression Patient was sent from his [place] [facility] at [facility] for Right sided hemiparesis. Patient is awake and alert he was in the hospital but is disoriented to time and person. He has slightly slurred slow Speech, at Times Hard to Understand and He Has to Repeat This Sentence. He Denies Any Headache. No Numbness. No Nausea Vomiting or Chest Pain or Dyspnea. No Diarrhea or Urinary Complaints. No Fever. Patient States That Both Sides Are Weak but the Right Side Is Weaker Than Usual. Nonsmoker Patient is a slightly bradycardic with heart rate 44-51 this morning, afebrile and Restoril vitals are stable. Labs checked and they show an unremarkable CBC, INR, BMP and liver enzymes. First troponin normal 0.02, then total elevated troponin 0.0392 Urine sample looks concentrated but not suspicious for infection winkler virus undetected. CT angiogram of the head and neck: Thrombosis of the entire right internal carotid arteries. There is significant stenosis of the distal right vertebral artery. CT of the brain: No acute process, however showing multiple old infarcts including 1 large cerebellar infarct, left posterior temporal, left occipital and right occipital infarct Chest x-ray: No acute change Emergency room he was started on aspirin 325 mg. He was on 81 mg [facility] [facility] Also Eliquis was held from the emergency room for possible need of any surgical intervention 10/19/2021 Patient is with vascular dementia which is looks like his baseline, however he has trace most questions appropriately. He has low tone of voice. He still complaining of from weakness on the right side, he cannot raise his right hand above his head compared to left side, also he cannot raise his right leg of bed as left side. It looks like there is some comments of chronicity from multiple strokes but patient states its worse on this admission. Patient is able to eat 50% of his diet today Patient yesterday was transferred to the ICU for the bradycardia, however looks his stable and beta jignesh was discontinued after cardiology evaluated the pat ient. He is on Eliquis and aspirin now. Vascular surgery evaluated the patient and recommended no surgical intervention MRI/A of the brain is pending, need the tachycardia and to be contacted prior to procedure which is pending for now. Patient was transferred to the select floor today 10/20/2021 patient today showing improvement in his right sided weakness, his weakness almost came back to his baseline, he can move both upper extremity and lower extremities symmetrically. No other evidence of cranial nerve palsy or effect. MRI of the brain showing bilateral subacute scattered cerebral accident consider embolic phenomenon. MRA of the brain: Right internal carotid artery occlusion. Posterior circulation is diminutive, there is evidence of prior infarct involving the left cerebellar hemisphere.MRI of the brain showing bilateral subacute scattered cerebral accident consider embolic phenomenon. MRA of the brain: Right internal carotid artery occlusion. Posterior circulation is diminutive, there is evidence of prior infarct involving the left cerebellar hemisphere. Other than that he is hemodynamically stable labs are stable. He is continued on aspirin 81 mg, Eliquis. While metoprolol was discontinued by stock sheets cleaner inspector and his bradycardia improved significantly. Neurology and vascular surgery team already on the case 10/21/2021 Patient remains clinically similar to yesterday, he has significant memory problems, he could not remember where he is at, he could not tell the date, time or person, he could not tell the diagnosis and medical problems he had which I discussed with him yesterday. Besides his voice little bit mumbles and with low tone. His weakness in upper or lower extremity improved since yesterday. Hemodynamically stable. Potassium 4.1 MRI/A of the brain yesterday showing bilateral subacute infarct Plavix added instead of his aspirin regimen. We will discuss with Cardiology and neurology team on the case for any further workup needed Objective - Vital Signs Vital signs: Vital Signs Temp 97.6 F 10/21/21 09:50 Pulse 85 10/21/21 11:11 Resp 16 10/21/21 09:50 BP 151/88 10/21/21 09:50 Pulse Ox 96 10/21/21 09:50 Intake & Output 10/20/21 10/21/21 10/21/21 18:59 06:59 18:59 Intake Total 1320 240 Output Total 450 Balance 1320 -450 240 Weight 54 kg Intake: Oral 1320 240 Output: Urine 450 Other: Voiding Method Urinal Urinal Urinal Diaper Diaper # Voids 1 1 1 - Exam -GENERAL: The patient is alert and oriented x1, not in any acute distress. Mild malnutrition HEENT: Pupils are round and equally reacting to light. EOMI. No scleral icterus. No conjunctival pallor. Normocephalic, atraumatic. No pharyngeal erythema. No thyromegaly. CARDIOVASCULAR: S1 and S2 present. No murmurs, rubs, or gallops. PULMONARY: Chest is clear to auscultation, no wheezing or crackles. ABDOMEN: Soft, nontender, nondistended, normoactive bowel sounds. No palpable organomegaly. MUSCULOSKELETAL: No joint swelling or deformity. EXTREMITIES: No cyanosis, clubbing, or pedal edema. -NEUROLOGICAL: Patient Ruddy nerves are grossly intact. Right-sided weakness is significantly improved and is comparable to the left side . Sensation intact. Meningeal signs are absent SKIN: No rashes. No petechiae - Labs CBC & Chem 7: 10/21/21 06:18 10/21/21 06:18 Labs: Abnormal Lab Results - Last 24 Hours (Table) 10/21/21 10/21/21 Range/Units 06:18 06:18 Plt Count 145 L (150-450) k/uL Carbon Dioxide 31 H (22-30) mmol/L BUN 21 H (9-20) mg/dL Glucose 104 H (74-99) mg/dL Assessment and Plan Assessment: Right-sided hemiparesis suspicious for acute stroke, improved. MRI bilateral subacute infarct, rule out embolic phenomena Carotid artery disease, thrombosis of the entire right internal carotid artery, with 50% stenosis on the left internal carotid artery Bradycardia improved with discontinuing of metoprolol Mild to moderate calories protein malnutrition History of coronary artery disease status post 3-4 vessel CABG History of CVA, multiple infarcts including large left cerebellar, bilateral occipital and left temporal infarcts COPD, no acute exacerbation History of DVT/PE on Eliquis Attention Hyperlipidemia History of and time Chronic back pain Anxiety and depression, not an active issue Plan: This is a pleasant 71 years old male who presents with multiple strokes on the CT of the brain, although most R not acute, elevated troponin Continue with Plavix instead of aspirin, continue with home dose of Eliquis 5 mg Follow-up with urology and vascular surgery regarding possible embolic phenomena. It Admin on the case Keep holding/discontinuing of metoprolol, bradycardia improved Labs and medication were reviewed.. Continue same treatment. Continue with symptomatic treatment. Resume home medication. Monitor lytes and vitals. DVT and GI prophylaxis. Further recommendations depends on the clinical course of the patient DVT prophylaxis Eliquis GI Prophylaxis: Pepcid PT/OT: From [place] [facility] Prognosis is guarded
--- NOTE | 2021-10-21 13:46 | P.PN ---
Subjective This is a 71-year-old male with a past medical history significant for coronary artery disease with previous CABG in 2017 (REID to LAD, SVG to diagnoal branch and RCA), carotid stenosis, ischemic cardiomyopathy, hypertension, hyperlipidemia, and nicotine dependence, paroxysmal atrial fibrillation (on Eliquis), CVA. Patient used to follow in the office with Dr. North but has not been seen in the office since 2018. We have been asked to see the patient in consultation for elevated troponin. Patient presented to the emergency department with progressive change in mental status. Patient seen and examined at bedside, no acute distress, he is lying in bed comfortably, denies shortness of breath or any pain. Brain revealed evidence of subacute bilateral scattered CVAs, consider embolic phenomenon. Head MRI revealed right internal carotid artery occlusion, evidence of prior infarct involving left cerebral hemisphere. Vital signs are reviewed and stable. He is in sinus mechanism this morning, but did go into atrial fibrillation overnight. Labs reviewed, WBC 6.8, hemoglobin 14.1, platelets 145, sodium 137, potassium 4.1, BUN 21, serum creatinine 1.25, magnesium 2.0 He's currently maintained on Eliquis 5 mg twice a day, Plavix 75mg daily, atorvastatin 80 mg nightly,PO Lasix 40 mg twice a day, Imdur 30 mg daily, lisinopril 5 mg daily, spironolactone 25 mg daily GENERAL: In no acute distress. NECK: Supple without JVD or thyromegaly. LUNGS: Breath sounds clear to auscultation bilaterally. Respiration equal and unlabored. No wheezes, rales or rhonchi. HEART: Regular rate and rhythm without systolic ejection murmur at base, No rubs or gallops. S1 and S2 heard. EXTREMITIES: no edema. No clubbing or cyanosis. Peripheral pulses intact. ASSESSMENT Altered mental status Subacute Bilateral CVAs on MRI Mild Elevated troponin, not indicative of acute ischemic event History of prior CVA History of coronary artery disease with previous CABG in 2017 (REID to LAD, SVG to diagnoal branch and RCA) History of ischemic cardiomyopathy Sinus bradycardia, beta jignesh continues to be on hold History of hypertension Hyperlipidemia History of chronic nicotine dependence Paroxysmal atrial fibrillation (on Eliquis) Right internal carotid artery occlusion PLAN -We will continue to hold beta jignesh -Continue current medication regimen -Further recommendations based on clinical course -On discharge, patient to follow up with Dr. North Objective - Vital Signs Vital signs: Vital Signs Temp 97.6 F 10/21/21 09:50 Pulse 64 10/21/21 11:55 Resp 16 10/21/21 11:55 BP 110/73 10/21/21 11:55 Pulse Ox 96 10/21/21 11:55 Intake & Output 10/20/21 10/21/21 10/21/21 18:59 06:59 18:59 Intake Total 1320 240 Output Total 450 Balance 1320 -450 240 Weight 54 kg Intake: Oral 1320 240 Output: Urine 450 Other: Voiding Method Urinal Urinal Urinal Diaper Diaper # Voids 1 1 1 - Labs CBC & Chem 7: 10/21/21 06:18 10/21/21 06:18 Labs: Abnormal Lab Results - Last 24 Hours (Table) 10/21/21 10/21/21 Range/Units 06:18 06:18 Plt Count 145 L (150-450) k/uL Carbon Dioxide 31 H (22-30) mmol/L BUN 21 H (9-20) mg/dL Glucose 104 H (74-99) mg/dL
--- NOTE | 2021-10-21 14:20 | P.PN ---
Subjective Progress Note Date: 10/21/21 Principal diagnosis: Carotid stenosis Patient is seen and examined sitting up in bed. No acute changes through the night. Pichardo underwent MRI and she'll of the head that shows right internal carotid occlusion. Posterior circulation is estimated to have evidence of prior infarct involving left cerebellar hemisphere. Basilar artery shows a more normal caliber centrally, limitations as described. MRI of brain shows evidence of subacute bilateral scattered cerebral vascular accident, consider embolic phenomenon. Findings are superimposed over chronic small vessel ischemic changes, left cerebellar hemisphere atrophy. Mild sinus disease. A neurology has stated strokes or bilateral suggestive of cardiac etiology. Patient is being switched from aspirin to Plavix 75 mg daily with continued eloquence 5 mg daily. Recommendation is cardiology consultation for possible transesophageal echocardiogram. Patient states no acute changes through the night, strength and tone improved. He is alert and oriented. Objective - Vital Signs Vital signs: Vital Signs Temp 97.7 F 10/21/21 03:31 Pulse 28 L 10/21/21 03:31 Resp 16 10/21/21 03:31 BP 126/64 10/21/21 03:31 Pulse Ox 99 10/21/21 03:31 Intake & Output 10/20/21 10/21/21 10/21/21 18:59 06:59 18:59 Intake Total 1320 240 Output Total 450 Balance 1320 -450 240 Weight 54 kg Intake: Oral 1320 240 Output: Urine 450 Other: Voiding Method Urinal Urinal Diaper # Voids 1 1 1 - Exam General appearance: The patient is alert, oriented, appears in no acute distress. HET: Head is normocephalic and atraumatic. Pupils are equal and reactive. Neck: Supple without lymphadenopathy. Trachea midline. Heart: S1 S2. Regular rate and rhythm. Lungs: No crackles or wheezes are heard. Abdomen: Soft, nontender, nondistended. Extremities: Normal skin color and turgor. No cyanosis, rash, ulceration, clubbing, or edema. Neurological: No focal deficits. Patient with a equal upper extremity strength. Right lower extremity with increased strength and tone today. He is able to lift his leg off the bed and has good strength. - Labs CBC & Chem 7: 10/21/21 06:18 10/21/21 06:18 Labs: Abnormal Lab Results - Last 24 Hours (Table) 10/21/21 10/21/21 Range/Units 06:18 06:18 Plt Count 145 L (150-450) k/uL Carbon Dioxide 31 H (22-30) mmol/L BUN 21 H (9-20) mg/dL Glucose 104 H (74-99) mg/dL Assessment and Plan Assessment: 1. Carotid stenosis, right ICA occlusion. Left ICA approximately 50% per CT angiogram, with no limiting flow to left ICA per carotid US 2. Right-sided weakness, TIA versus stroke 3. History of previous strokes 4. Coronary artery disease 5. History of pulmonary embolism 6. History of hypertension and hyperlipidemia Plan: 1. Carotid duplex ordered and reviewed 2. Continue high-dose statin 3. Continue recommendations from neurology 4. No acute surgical intervention planned. Patient to have outpatient follow up with vascular surgery. Thank you for this consultation, we will sign off at this time. The impression and plan of care has been dictated as directed. Dr. Estevez I performed a history and examination of this patient, discussed the same with the dictator. I agree with the dictator's note ,documented as a scribe. Any additional findings or plans will be noted.
--- NOTE | 2021-10-21 15:41 | P.PN ---
Subjective Progress Note Date: 10/21/21 Principal diagnosis: TIA This is a 71-year-old white male patient who was brought in from the [facility] by EMS on 10/18/2021 for evaluation of right upper extremity weakness that was noticed a little over then an hour prior to presentation. Patient could not walk and she normally ambulates with a walker at baseline. EKG in the ER revealed incomplete left bundle branch block, sinus mechanism, and the rate was as low as 20, although we don't have recorded strips. CT of the brain showed a large old left posterior temporal lobe and left occipital lobe infarct without c hange. There was a large old left cerebellar infarct in the inferior aspect of the hemisphere, and there was a small right occipital lobe infarct without much change, and chronic small vessel ischemia in the parietal lobes which was more noticeable compared his previous CT of the brain from 01/22/2020. Patient is a poor historian, he is quite confused, he is only oriented to self, he did not know he was in the hospital. Could not state the date. Seems to be slow with responses, takes time to process information. But follows all simple commands, moves all 4 extremities, no garbled speech, face symmetric, no unilateral weakness or paralysis noted. His initial neurological symptoms seem to have resolved. However his baseline is not known. Breathing comfortably, does admit to history of smoking. Chest x-ray showed cardiomegaly, slightly enlarged heart, mild pulmonary fibrotic changes at the lung bases. CT angiography of the brain showed thrombosis of the entire right internal carotid artery, there is significant stenosis of the distal right vertebral artery, and the left verteb ral artery is small and does not appear to be flow into the basilar artery, no intracranial hemodynamic stenosis, and infarcts were noted in the left cerebellar hemisphere and left temporal and occipital and parietal lobes area there was approximately 50% stenosis of the origin of the left internal carotid artery. Patient admission labs were reviewed showing white blood cell, 6.9, hemoglobin is 12.8, INR was 1.1, electrolytes and renal profile were unremarkable, patient had a mild troponin elevation, initial troponin was within normal limits at 0.026, and subsequent troponins were 0.0392. Urinalysis showed trace protein, small nitrites, but no clear evidence of pneumonia, COVID- 19 PCR was negative. Patient's medical history includes COPD, previous history of CVA/TIA, previous history of DVT on Eliquis, hypertension, hyperlipidemia, coronary artery disease with history of 3-4 vessel CABG at [facility], history of pulmonary embolism, chronic back pain, anxiety and depression. Patient is being followed by neurology, he is on 81 mg aspirin, high intensity statin in the form of Lipitor 80 mg daily, she was restarted on his home dose Eliquis 5 mg twice a day. This morning he seen in the intensive care unit, resting comfortably in bed, denies any specific complaints, currently on 2 L of oxygen his pulse ox of 94%, breathing comfortable, lung sounds are clear, diminished. No rhonchi or wheezing, no coughing, blood pressure is 100/78. Progress note dated 10/20/2021. This is a patient who was initially seen in the intensive care unit, for TIA/CVA. The patient developed sudden right-sided weakness on October 18. Currently, he is resting comfortably. He is receiving nasal cannula. He's not receiving any IV fluids. He is a previous history of CVA, dementia, bra dycardia, previous history of PE and DVT, tobacco use with a possible COPD, and CAD, with previous 3-4 vessel bypass grafting at [facility]. Currently, he is resting comfortably without any major complaints. Laboratory data includes a white count of 6.7, hemoglobin 13.8 hematocrit 39.9, platelet count 144,000. Sodium 137, potassium 5.3, chlorides 99, CO2 34, anion gap 4, BUN 19, with creatinine of 1.12. Carotid Doppler shows occlusion of the right internal carotid artery, and nonvisualization of the left vertebral artery. Progress note dated 10/21/2021. 71-year-old male again seen in room 375. The patient's on 3 L nasal cannula. Not receiving any IV fluids. The patient is not manifesting any signs or symptoms of respiratory distress. The patient is a very poor historian. The patient has a history of CVA, dementia, bradycardia, previous PE/DVT, possible COPD from tobacco use, CAD, and a previous 3-4 vessel bypass grafting at [facility]. White count 6.8, hemoglobin 14.1, hematocrit 42.8, platelet count 145,000. Sodium 137, potassium 4.1, chlorides 99, CO2 31, anion gap 7, BUN 21, creatinine 1.25. Objective - Vital Signs Vital signs: Vital Signs Temp 97.6 F 10/21/21 09:50 Pulse 84 10/21/21 15:30 Resp 16 10/21/21 11:55 BP 110/73 10/21/21 11:55 Pulse Ox 96 10/21/21 11:55 Intake & Output 10/20/21 10/21/21 10/21/21 18:59 06:59 18:59 Intake Total 1320 358 Output Total 450 Balance 1320 -450 358 Weight 54 kg Intake: Oral 1320 358 Output: Urine 450 Other: Voiding Method Urinal Urinal Urinal Diaper Diaper # Voids 1 1 1 - Exam No acute distress, a bit lethargic, does respond, but does so slowly. 2 L saturation is 96%. HEENT examination is grossly unremarkable. Neck supple. Full range of motion. No adenopathy thyromegaly or neck vein distention. Cardiovascular examination reveals regular rhythm rate. S1-S2 normal. No S3 or S4. No discernible murmur noted. Heart sounds are distant. Heart rate 84 bpm. Lungs reveal mostly clear breath sounds. Scattered rhonchi are noted. No wheezes or crackles. Breath sounds equal. Abdomen soft bowel sounds are heard. No masses or tenderness. Extremities are intact. No cyanosis clubbing or edema. Skin is without rash or lesion. Neurologic examination is brief but nonfocal. - Labs CBC & Chem 7: 10/21/21 06:18 10/21/21 06:18 Labs: Abnormal Lab Results - Last 24 Hours (Table) 10/21/21 10/21/21 Range/Units 06:18 06:18 Plt Count 145 L (150-450) k/uL Carbon Dioxide 31 H (22-30) mmol/L BUN 21 H (9-20) mg/dL Glucose 104 H (74-99) mg/dL Assessment and Plan Assessment: #1. Acute TIA versus CVA with sudden onset of right-sided weakness on 10/18/2021, the right-sided weakness has previously resolved. #2. Weakness, inability to ambulate related to the above. #3. Total right ICA occlusion, vascular surgery has been consulted. #4. Previous history of CVA. #5. Possible vascular dementia. #6. Bradycardia, in sinus mechanism, with reported rate as low as 20, nonsustained, beta blockers have been adjusted per cardiology. #7. Previous history of PE and DVT, on Eliquis on a chronic basis. #8. History of smoking, and suspect underlying COPD. #9. History of coronary artery disease with previous history of 3-4 vessel coronary artery bypass at the [facility]. #10. Previous history of [place]. #11. Hypertension. #12. Hyperlipidemia. #13. History of right carotid stenosis. #14. History of anxiety and depression. #15. History of medical marijuana use. Plan: Plan dated 10/20/2021. Currently respiratory status is stable. He is on 2 L. His saturations are 94- 95%. His coronavirus testing was negative. His blood thinner, Eliquis, has been restarted. Vascular surgery has been consulted for the right total internal carotid artery occlusion. We will continue to follow make recommendations were appropriate. Appreciate input from neurology. The patient was stable to be transferred out of the intensive care unit. Plan dated 10/21/2021. Currently, the patient is stable from the pulmonary standpoint. He is on 2 L, and his saturations are 96%. His labs are reviewed. His medications are reviewed. We will continue to follow make recommendations were appropriate. The patient was initially in the intensive care unit. He is much more stable now. No respiratory issues at this time. Time with Patient: Less than 30
[2021-10-21] MEDS: LORazepam 0.5 MG TAB PO PRN (17:43)
[2021-10-21] MEDS: MONTELUKAST 10 MG TAB PO SCH (21:42)
[2021-10-21] MEDS: ATORVASTATIN 80 MG TAB PO SCH (21:43)
[2021-10-22] MEDS: DOCUSATE 100 MG CAP PO SCH ×4 (00:30→23:28)
[2021-10-22] MEDS: SODIUM CHLORIDE 0.9% 1,000 ML IV SCH (06:39)
[2021-10-22 08:39] LABS: Calcium 9.3 mg/dL (8.4-10.2); Potassium 4.5 mmol/L (3.5-5.1)
[2021-10-22] MEDS: FAMOTIDINE 20 MG TAB PO SCH (09:33)
[2021-10-22] MEDS: FUROSEMIDE 40 MG TAB PO SCH ×2 (09:33→17:42)
[2021-10-22] MEDS: APIXABAN 5 MG TAB PO SCH ×2 (09:33→20:04)
--- NOTE | 2021-10-22 09:33 | P.PN ---
Subjective Progress Note Date: 10/21/21 10/21/2021: Patient is laying comfortably in the bed. Offers no new complaints. No new focal symptoms. No headache. 10/20/2021: Patient is laying comfortably in the bed. Denies any pain, any headache. Still has tremors of the left hand. Telemetry monitoring showing couplets, triplets, PVC, PAC. No other arrhythmia. 10/19/2021: Patient initially seen with Dr. High yesterday. Please refer to her note for detail. Patient has presented with right-sided weakness. No other neurological symptoms. No visual symptoms. Patient is laying comfortably in the bed. Denies any headache, no numbness tingling or weakness. CT head showed no acute process. There is evidence of large old left cerebellar infarct as well as left temporal occipital infarct and a small right occipital infarct. Patient lives with his son and his and grandchildren. He uses cane most of the time. No walker. Objective - Vital Signs Vital signs: Vital Signs Temp 97.6 F 10/21/21 09:50 Pulse 88 10/21/21 15:43 Resp 16 10/21/21 11:55 BP 110/73 10/21/21 11:55 Pulse Ox 96 10/21/21 11:55 Intake & Output 10/20/21 10/21/21 10/21/21 18:59 06:59 18:59 Intake Total 1320 358 Output Total 450 Balance 1320 -450 358 Weight 54 kg Intake: Oral 1320 358 Output: Urine 450 Other: Voiding Method Urinal Urinal Urinal Diaper Diaper # Voids 1 1 1 - Exam Gen.: The patient is resting in the bed. He is well-nourished. He is in no acute distress. HEENT: Head is atraumatic, normocephalic. There is a tremor of the head, jaw and outstretched hands. There is no scleral icterus. Mucous membranes are moist. Neck: Without carotid bruits Heart: Regular rate and rhythm Extremities: Without edema Neurological examination Mental status: The patient is awake and alert. The patient's speech is clear. Patient has mild tremor of his voice as well. Patient can name and repeat very well. Cranial nerves: Pupils are equal at 4 mm and reactive. Visual lewis are full to confrontation, with no neglect. Extraocular movements are intact. Facial sensation is intact. No obvious facial droop. Uvula and palate are midline. Shoulder shrug is symmetric. Tongue protrudes midline, with tremor. Motor: Bilateral upper extremity strength is 5/5, except right deltoid which is weak from arthritis. Hip flexion is 4+ bilaterally, ankle dorsiflexion are normal. Toe extension is very weak, 2 on the right, 5 on left. Coordination: There is a significant component of postural and intention tremor of the bilateral upper extremities, left greater than right. There is mild tremor at rest of the left hand. There is no dysmetria with finger to nose testing. Deep tendon reflexes: 2-3+/4+ in the bilateral upper extremities. Bilateral patellar reflexes 3+/4+. Plantar responses are flexor bilaterally. Sensation: Grossly intact to light touch throughout. There is no extinction with double simultaneous stimulation. - Labs CBC & Chem 7: 10/21/21 06:18 10/22/21 07:48 Labs: Abnormal Lab Results - Last 24 Hours (Table) 10/21/21 10/21/21 Range/Units 06:18 06:18 Plt Count 145 L (150-450) k/uL Carbon Dioxide 31 H (22-30) mmol/L BUN 21 H (9-20) mg/dL Glucose 104 H (74-99) mg/dL Assessment and Plan Assessment: 1. Subacute bilateral scattered cerebral vascular accidents, most likely embolic phenomenon from cardiac source. 2. Right ICA occlusion, 3. Essential tremor. 4. Hypertension 5. Coronary artery disease. 6. Chronic tobacco use. Patient has smoked at least 1 pack per day since age 17, and was smoking up to 4 packs per day prior to quitting 1 month ago. Plan: 1. Patient has multiple small tiny areas of acute infarction involving bi lateral hemispheric region, likely embolic. 2. Continue high-dose statin 3. Continue Eliquis. Patient switched from aspirin to Plavix for secondary stroke prevention. 4. Lipid panel with cholesterol 139, LDL 73, HDL 45 and triglycerides 98.3 on 10/19/2021. Continue high-dose statins Lipitor 80 mg daily. His hemoglobin A1c 5.5 on 08/28/2021 5. 2-D echocardiogram revealed normal left-ventricular size and left ventricular wall thickness. Moderate global hypokinesis of the left ventricle. EF is severely impaired, 25-30%. Left atrium is mildly dilated. Discussed with Dr. Smallwood. Patient will undergo a limited 2-D echo for bubble study, to rule out PFO. If positive, then he may be a candidate for PFO closure. Per cardiology, MICHELLE will not give any additional information, besides what we already have. 6. CTA of the head and neck reported thromboses of the entire right ICA. There is significant stenosis of the distal right vertebral artery. The left v ertebral artery is small and does not appear to be going to the basal artery. No intracranial hemodynamic stenosis. Infarcts noted in the left cerebellar hemisphere in the left temporal occipital and parietal lobes. There is approximate 50% stenosis of the region of the left ICA. 7. Carotid Doppler revealed occlusion of the right ICA. Nonvisualization of the left vertebral artery. Atheromatous plaquing left ICA without flow limiting stenosis. MRI of the brain revealed evidence of subacute bilateral scattered cerebral vascular accidents, consider embolic phenomenon. Findings are superimposed over chronic small vessel ischemic changes, left cerebellar hemisphere atrophy. Mild sinus disease. MRA of the brain revealed right ICA occlusion. Posterior circulation is diminutive, there is evidence of prior infarct involving the left cerebellar hemisphere. Basilar artery shows some more normal caliber centrally, limitations as described.
[2021-10-22] MEDS: SPIRONOLACTONE 25 MG TAB PO SCH (09:34)
[2021-10-22] MEDS: lisinopriL 5 MG TAB PO SCH (09:34)
[2021-10-22] MEDS: ISOSORBIDE MONONITRATE ER 30 MG TAB.ER.24H PO SCH (09:34)
[2021-10-22] MEDS: GABAPENTIN 100 MG CAP PO SCH ×2 (09:34→20:04)
[2021-10-22] MEDS: THIAMINE 100 MG TAB PO SCH ×2 (09:34→20:03)
[2021-10-22] MEDS: CLOPIDOGREL 75 MG TAB PO SCH (09:34)
[2021-10-22] MEDS: busPIRone HCl 10 MG TAB PO SCH ×2 (09:34→20:03)
[2021-10-22] MEDS: ESCITALOPRAM 5 MG TAB PO SCH (09:35)
[2021-10-22] MEDS: ALBUTEROL NEBULIZED 2.5 MG/3 ML INHALATION PRN ×2 (11:35→15:22)
--- NOTE | 2021-10-22 11:50 | ECHOF ---
Referral Reason:rule out PFO MEASUREMENTS -------- HEIGHT: 180.3 cm WEIGHT: 54.0 kg BP: FINDINGS -------- Pt had MICHELLE 04/2017 no shunt indicated. This was a technically difficult study with suboptimal views. Limited Study Contrast study was performed with 2 iv injections of 8 ccs of agitated normal saline, at rest, and wi th cough. Bubble study done to rule out PFO. Unable to comment due to poor images. CONCLUSIONS -------- 1. Pt had MICHELLE 04/2017 no shunt indicated. 2. Contrast study was performed with 2 iv injections of 8 ccs of agitated normal saline, at rest, and with cough. 3. Bubble study done to rule out PFO. Unable to comment due to poor images. [employer] SALESPERSON: Marianela Norris RDCS
--- NOTE | 2021-10-22 12:24 | P.PN ---
Subjective This is a 71-year-old male with a past medical history significant for coronary artery disease with previous CABG in 2017 (REID to LAD, SVG to diagnoal branch and RCA), carotid stenosis, ischemic cardiomyopathy, hypertension, hyperlipidemia, and nicotine dependence, paroxysmal atrial fibrillation (on Eliquis), CVA. Patient used to follow in the office with Dr. North but has not been seen in the office since 2018. We have been asked to see the patient in consultation for elevated troponin. Patient presented to the emergency department with progressive change in mental status. Patient seen and examined at bedside, no acute distress, he is lying in bed comfortably, denies shortness of breath or any pain. He states he has a good appetite, eating well. Brain revealed evidence of subacute bilateral scattered CVAs, consider embolic phenomenon. Head MRI revealed right internal carotid artery occlusion, evidence of prior infarct involving left cerebral hemisphere. He had a IMCHELLE in 2017 which revealed no shunt. Echocardiogram with bubble study was obtained, however, due to poor images unable to comment Vital signs are reviewed and stable. He is sinus mechanism on telemetry with PVCs. Labs reviewed, sodium 137, potassium 4.5, BUN 22, serum creatinine 1.25 He's currently maintained on Eliquis 5 mg twice a day, Plavix 75mg daily, atorvastatin 80 mg nightly,PO Lasix 40 mg twice a day, Imdur 30 mg daily, lisinopril 5 mg daily, spironolactone 25 mg daily GENERAL: In no acute distress. NECK: Supple without JVD or thyromegaly. LUNGS: Breath sounds clear to auscultation bilaterally. Respiration equal and unlabored. No wheezes, rales or rhonchi. HEART: Regular rate and rhythm without systolic ejection murmur at base, No rubs or gallops. S1 and S2 heard. EXTREMITIES: no edema. No clubbing or cyanosis. Peripheral pulses intact. ASSESSMENT Altered mental status Subacute Bilateral CVAs on MRI Mild Elevated troponin, not indicative of acute ischemic event History of prior CVA History of coronary artery disease with previous CABG in 2017 (ERID to LAD, SVG to diagnoal branch and RCA) History of ischemic cardiomyopathy Sinus bradycardia, beta jignesh continues to be on hold History of hypertension Hyperlipidemia History of chronic nicotine dependence Paroxysmal atrial fibrillation (on Eliquis) Right internal carotid artery occlusion PLAN -Echocardiogram with bubble study was obtained, however, due to poor images inessa arana to comment. -Plan for MICHELLE tomorrow 10/23/[address] Smallwood, patient is agreeable. I have discussed the risks, benefits and alternative therapies for the above- mentioned procedure and for both sedation/analgesia if indicated, as they pertain to this patient. The patient has indicated understanding and acceptance of the risks and procedures discussed. Questions have been answered appropri ately and he is agreeable to move forward with the above-stated procedure. -We will continue to hold beta jignesh -Continue current medication regimen -Further recommendations based on clinical course -On discharge, patient to follow up with Dr. North Objective - Vital Signs Vital signs: Vital Signs Temp 97.5 F L 10/22/21 08:00 Pulse 82 10/22/21 11:43 Resp 16 10/22/21 08:00 BP 93/60 10/22/21 08:00 Pulse Ox 99 10/22/21 08:00 Intake & Output 10/21/21 10/22/21 10/22/21 18:59 06:59 18:59 Intake Total 476 Output Total 450 100 Balance 26 -100 Weight 56.5 kg Intake: Oral 476 Output: Urine 350 100 Condom 350 Post Void Residual 100 Other: Voiding Method Urinal Urinal Diaper Diaper # Voids 1 1 # Bowel Movements 1 - Labs CBC & Chem 7: 10/21/21 06:18 10/22/21 07:48 Labs: Abnormal Lab Results - Last 24 Hours (Table) 10/22/21 Range/Units 07:48 Chloride 97 L (98-107) mmol/L Carbon Dioxide 33 H (22-30) mmol/L BUN 22 H (9-20) mg/dL
[2021-10-22 14:12] VITALS: BMI 16.9
--- NOTE | 2021-10-22 15:09 | P.PN ---
Subjective Progress Note Date: 10/22/21 Principal diagnosis: TIA This is a 71-year-old white male patient who was brought in from the [facility] by EMS on 10/18/2021 for evaluation of right upper extremity weakness that was noticed a little over then an hour prior to presentation. Patient could not walk and she normally ambulates with a walker at baseline. EKG in the ER revealed incomplete left bundle branch block, sinus mechanism, and the rate was as low as 20, although we don't have recorded strips. CT of the brain showed a large old left posterior temporal lobe and left occipital lobe infarct without c hange. There was a large old left cerebellar infarct in the inferior aspect of the hemisphere, and there was a small right occipital lobe infarct without much change, and chronic small vessel ischemia in the parietal lobes which was more noticeable compared his previous CT of the brain from 01/22/2020. Patient is a poor historian, he is quite confused, he is only oriented to self, he did not know he was in the hospital. Could not state the date. Seems to be slow with responses, takes time to process information. But follows all simple commands, moves all 4 extremities, no garbled speech, face symmetric, no unilateral weakness or paralysis noted. His initial neurological symptoms seem to have resolved. However his baseline is not known. Breathing comfortably, does admit to history of smoking. Chest x-ray showed cardiomegaly, slightly enlarged heart, mild pulmonary fibrotic changes at the lung bases. CT angiography of the brain showed thrombosis of the entire right internal carotid artery, there is significant stenosis of the distal right vertebral artery, and the left verteb ral artery is small and does not appear to be flow into the basilar artery, no intracranial hemodynamic stenosis, and infarcts were noted in the left cerebellar hemisphere and left temporal and occipital and parietal lobes area there was approximately 50% stenosis of the origin of the left internal carotid artery. Patient admission labs were reviewed showing white blood cell, 6.9, hemoglobin is 12.8, INR was 1.1, electrolytes and renal profile were unremarkable, patient had a mild troponin elevation, initial troponin was within normal limits at 0.026, and subsequent troponins were 0.0392. Urinalysis showed trace protein, small nitrites, but no clear evidence of pneumonia, COVID- 19 PCR was negative. Patient's medical history includes COPD, previous history of CVA/TIA, previous history of DVT on Eliquis, hypertension, hyperlipidemia, coronary artery disease with history of 3-4 vessel CABG at [facility], history of pulmonary embolism, chronic back pain, anxiety and depression. Patient is being followed by neurology, he is on 81 mg aspirin, high intensity statin in the form of Lipitor 80 mg daily, she was restarted on his home dose Eliquis 5 mg twice a day. This morning he seen in the intensive care unit, resting comfortably in bed, denies any specific complaints, currently on 2 L of oxygen his pulse ox of 94%, breathing comfortable, lung sounds are clear, diminished. No rhonchi or wheezing, no coughing, blood pressure is 100/78. Progress note dated 10/20/2021. This is a patient who was initially seen in the intensive care unit, for TIA/CVA. The patient developed sudden right-sided weakness on October 18. Currently, he is resting comfortably. He is receiving nasal cannula. He's not receiving any IV fluids. He is a previous history of CVA, dementia, bra dycardia, previous history of PE and DVT, tobacco use with a possible COPD, and CAD, with previous 3-4 vessel bypass grafting at [facility]. Currently, he is resting comfortably without any major complaints. Laboratory data includes a white count of 6.7, hemoglobin 13.8 hematocrit 39.9, platelet count 144,000. Sodium 137, potassium 5.3, chlorides 99, CO2 34, anion gap 4, BUN 19, with creatinine of 1.12. Carotid Doppler shows occlusion of the right internal carotid artery, and nonvisualization of the left vertebral artery. Progress note dated 10/21/2021. 71-year-old male again seen in room 375. The patient's on 3 L nasal cannula. Not receiving any IV fluids. The patient is not manifesting any signs or symptoms of respiratory distress. The patient is a very poor historian. The patient has a history of CVA, dementia, bradycardia, previous PE/DVT, possible COPD from tobacco use, CAD, and a previous 3-4 vessel bypass grafting at [facility]. White count 6.8, hemoglobin 14.1, hematocrit 42.8, platelet count 145,000. Sodium 137, potassium 4.1, chlorides 99, CO2 31, anion gap 7, BUN 21, creatinine 1.25. Progress note dated 10/22/2021. The patient is again seen in room 375. He's not receiving any IV fluids. He is on 3 L nasal cannula. His mental status is unchanged. He is very lethargic and somnolent, but does arouse. His speech is very slow. He had blood work today including a sodium 137, potassium 4.5, chlorides 97, CO2 33, BUN 22, and creatinine 1.25. No chest x-ray today. He is doing about the same as he was yesterday. He has a history of CVA, dementia, bradycardia, previous PE/DVT, possible COPD from previous tobacco use, CAD, and a previous bypass grafting at [facility]. Objective - Vital Signs Vital signs: Vital Signs Temp 97.5 F L 10/22/21 08:00 Pulse 82 10/22/21 11:43 Resp 16 10/22/21 08:00 BP 93/60 10/22/21 08:00 Pulse Ox 99 10/22/21 08:00 Intake & Output 10/21/21 10/22/21 10/22/21 18:59 06:59 18:59 Intake Total 476 Output Total 450 100 Balance 26 -100 Weight 56.5 kg 56.5 kg Intake: Oral 476 Output: Urine 350 100 Condom 350 Post Void Residual 100 Other: Voiding Method Urinal Urinal Diaper Diaper # Voids 1 1 # Bowel Movements 1 - Exam No acute distress, a bit lethargic, does respond, but does so slowly. 3 L saturation is 99%. HEENT examination is grossly unremarkable. Neck supple. Full range of motion. No adenopathy thyromegaly or neck vein distention. Cardiovascular examination reveals regular rhythm rate. S1-S2 normal. No S3 or S4. No discernible murmur noted. Heart sounds are distant. Heart rate 56 bpm. Lungs reveal mostly clear breath sounds. Scattered rhonchi are noted. No wheezes or crackles. Breath sounds equal. Abdomen soft bowel sounds are heard. No masses or tenderness. Extremities are intact. No cyanosis clubbing or edema. Skin is without rash or lesion. Neurologic examination is brief but nonfocal. - Labs CBC & Chem 7: 10/21/21 06:18 10/22/21 07:48 Labs: Abnormal Lab Results - Last 24 Hours (Table) 10/22/21 Range/Units 07:48 Chloride 97 L (98-107) mmol/L Carbon Dioxide 33 H (22-30) mmol/L BUN 22 H (9-20) mg/dL Assessment and Plan Assessment: #1. Acute TIA versus CVA with sudden onset of right-sided weakness on 10/18/2021, the right-sided weakness has previously resolved. #2. Weakness, inability to ambulate related to the above. #3. Total right ICA occlusion, vascular surgery has been consulted. #4. Previous history of CVA. #5. Possible vascular dementia. #6. Bradycardia, in sinus mechanism, with reported rate as low as 20, nonsustained, beta blockers have been adjusted per cardiology. #7. Previous history of PE and DVT, on Eliquis on a chronic basis. #8. History of smoking, and suspect underlying COPD. #9. History of coronary artery disease with previous history of 3-4 vessel coronary artery bypass at the [facility]. #10. Previous history of [place]. #11. Hypertension. #12. Hyperlipidemia. #13. History of right carotid stenosis. #14. History of anxiety and depression. #15. History of medical marijuana use. Plan: Plan dated 10/20/2021. Currently respiratory status is stable. He is on 2 L. His saturations are 94- 95%. His coronavirus testing was negative. His blood thinner, Eliquis, has been restarted. Vascular surgery has been consulted for the right total internal carotid artery occlusion. We will continue to follow make recommendations were appropriate. Appreciate input from neurology. The patient was stable to be transferred out of the intensive care unit. Plan dated 10/21/2021. Currently, the patient is stable from the pulmonary standpoint. He is on 2 L, and his saturations are 96%. His labs are reviewed. His medications are reviewed. We will continue to follow make recommendations were appropriate. The patient was initially in the intensive care unit. He is much more stable now. No respiratory issues at this time. Plan dated 10/22/2021. The patient is stable from the pulmonary standpoint. He's currently on 3 L, with saturations of 99%. That can be titrated down. The patient's lab data is reviewed. Moving forward, we will see the patient only as needed. No additional recommendations are made. Prognosis is guarded. Time with Patient: Less than 30
[2021-10-22] MEDS: IPRATROPIUM-ALBUTEROL 3 ML NEB INHALATION PRN (19:16)
[2021-10-22] MEDS: MONTELUKAST 10 MG TAB PO SCH (20:03)
[2021-10-22] MEDS: ATORVASTATIN 80 MG TAB PO SCH (20:03)
--- NOTE | 2021-10-22 21:21 | P.PN ---
Subjective This is a pleasant 71 years old male with past medical history of Coronary Artery Disease status post 3-4 vessel CABG at [facility] , COPD, CVA/TIA, Deep Vein Thrombosis on Eliquis , Hyperlipidemia, Hypertension, Pulmonary Embolus, hand tremors, emphysema, back pain, anxiety and depression Patient was sent from his detention at [facility] for Right sided hemiparesis. Patient is awake and alert he was in the hospital but is disoriented to time and person. He has slightly slurred slow Speech, at Times Hard to Understand and He Has to Repeat This Sentence. He Denies Any Headache. No Numbness. No Nausea Vomiting or Chest Pain or Dyspnea. No Diarrhea or Urinary Complaints. No Fever. Patient States That Both Sides Are Weak but the Right Side Is Weaker Than Usual. Nonsmoker Patient is a slightly bradycardic with heart rate 44-51 this morning, afebrile and Restoril vitals are stable. Labs checked and they show an unremarkable CBC, INR, BMP and liver enzymes. First troponin normal 0.02, then total elevated troponin 0.0392 Urine sample looks concentrated but not suspicious for infection winkler virus undetected. CT angiogram of the head and neck: Thrombosis of the entire right internal carotid arteries. There is significant stenosis of the distal right vertebral artery. CT of the brain: No acute process, however showing multiple old infarcts including 1 large cerebellar infarct, left posterior temporal, left occipital and right occipital infarct Chest x-ray: No acute change Emergency room he was started on aspirin 325 mg. He was on 81 mg detention Also Eliquis was held from the emergency room for possible need of any surgical intervention 10/19/2021 Patient is with vascular dementia which is looks like his baseline, however he has trace most questions appropriately. He has low tone of voice. He still complaining of from weakness on the right side, he cannot raise his right hand above his head compared to left side, also he cannot raise his right leg of bed as left side. It looks like there is some comments of chronicity from multiple strokes but patient states its worse on this admission. Patient is able to eat 50% of his diet today Patient yesterday was transferred to the ICU for the bradycardia, however looks his stable and beta jignesh was discontinued after cardiology evaluated the pat ient. He is on Eliquis and aspirin now. Vascular surgery evaluated the patient and recommended no surgical intervention MRI/A of the brain is pending, need the tachycardia and to be contacted prior to procedure which is pending for now. Patient was transferred to the select floor today 10/20/2021 patient today showing improvement in his right sided weakness, his weakness almost came back to his baseline, he can move both upper extremity and lower extremities symmetrically. No other evidence of cranial nerve palsy or effect. MRI of the brain showing bilateral subacute scattered cerebral accident consider embolic phenomenon. MRA of the brain: Right internal carotid artery occlusion. Posterior circulation is diminutive, there is evidence of prior infarct involving the left cerebellar hemisphere.MRI of the brain showing bilateral subacute scattered cerebral accident consider embolic phenomenon. MRA of the brain: Right internal carotid artery occlusion. Posterior circulation is diminutive, there is evidence of prior infarct involving the left cerebellar hemisphere. Other than that he is hemodynamically stable labs are stable. He is continued on aspirin 81 mg, Eliquis. While metoprolol was discontinued by assistant director of public works and his bradycardia improved significantly. Neurology and vascular surgery team already on the case 10/21/2021 Patient remains clinically similar to yesterday, he has significant memory problems, he could not remember where he is at, he could not tell the date, time or person, he could not tell the diagnosis and medical problems he had which I discussed with him yesterday. Besides his voice little bit mumbles and with low tone. His weakness in upper or lower extremity improved since yesterday. Hemodynamically stable. Potassium 4.1 MRI/A of the brain yesterday showing bilateral subacute infarct Plavix added instead of his aspirin regimen. We will discuss with Cardiology and neurology team on the case for any further workup needed 10/22/2021 Patient clinically is comparable to yesterday he is confused as baseline and forgetful but his extremity weakness improved on the right side and symmetrical to the left side. Hemodynamically stable. Labs reviewed with no significant change. He remains on Plavix and Eliquis. Because of embolic phenomena for his bilateral stroke is suspected, further workup was done, echocardiogram with bubble study was of poor quality and nondiagnostic, cartilage team are planning for a MICHELLE tomorrow Objective - Vital Signs Vital signs: Vital Signs Temp 97.5 F L 10/22/21 08:00 Pulse 56 L 10/22/21 08:00 Resp 16 10/22/21 08:00 BP 93/60 10/22/21 08:00 Pulse Ox 99 10/22/21 08:00 Intake & Output 10/21/21 10/22/21 10/22/21 18:59 06:59 18:59 Intake Total 476 Output Total 450 100 Balance 26 -100 Weight 56.5 kg Intake: Oral 476 Output: Urine 350 100 Condom 350 Post Void Residual 100 Other: Voiding Method Urinal Urinal Diaper Diaper # Voids 1 1 # Bowel Movements 1 - Exam -GENERAL: The patient is alert and oriented x1, not in any acute distress. Mild malnutrition HEENT: Pupils are round and equally reacting to light. EOMI. No scleral icterus. No conjunctival pallor. Normocephalic, atraumatic. No pharyngeal erythema. No thyromegaly. CARDIOVASCULAR: S1 and S2 present. No murmurs, rubs, or gallops. PULMONARY: Chest is clear to auscultation, no wheezing or crackles. ABDOMEN: Soft, nontender, nondistended, normoactive bowel sounds. No palpable organomegaly. MUSCULOSKELETAL: No joint swelling or deformity. EXTREMITIES: No cyanosis, clubbing, or pedal edema. -NEUROLOGICAL: Patient Ruddy nerves are grossly intact. Right-sided weakness is significantly improved and is comparable to the left side . Sensation intact. Meningeal signs are absent SKIN: No rashes. No petechiae - Labs CBC & Chem 7: 10/21/21 06:18 10/22/21 07:48 Labs: Abnormal Lab Results - Last 24 Hours (Table) 10/22/21 Range/Units 07:48 Chloride 97 L (98-107) mmol/L Carbon Dioxide 33 H (22-30) mmol/L BUN 22 H (9-20) mg/dL Assessment and Plan Assessment: Right-sided hemiparesis suspicious for acute stroke, improved. MRI bilateral subacute infarct, rule out embolic phenomena Carotid artery disease, thrombosis of the entire right internal carotid artery, with 50% stenosis on the left internal carotid artery Bradycardia improved with discontinuing of metoprolol Mild to moderate calories protein malnutrition History of coronary artery disease status post 3-4 vessel CABG History of CVA, multiple infarcts including large left cerebellar, bilateral occipital and left temporal infarcts COPD, no acute exacerbation History of DVT/PE on Eliquis Attention Hyperlipidemia History of and time Chronic back pain Anxiety and depression, not an active issue Plan: This is a pleasant 71 years old male who presents with multiple strokes on the CT of the brain, although most R not acute, elevated troponin Continue with Plavix instead of aspirin, continue with home dose of Eliquis 5 mg Follow-up with urology and vascular surgery regarding possible embolic phen omena. Payment Manager on the case Keep holding/discontinuing of metoprolol, bradycardia improved MICHELLE in the morning Labs and medication were reviewed.. Continue same treatment. Continue with symptomatic treatment. Resume home medication. Monitor lytes and vitals. DVT and GI prophylaxis. Further recommendations depends on the clinical course of the patient DVT prophylaxis Eliquis GI Prophylaxis: Pepcid PT/OT: From detention Prognosis is guarded
[2021-10-22] MEDS: LORazepam 0.5 MG TAB PO PRN (21:27)
--- NOTE | 2021-10-22 22:46 | P.PN ---
Subjective Progress Note Date: 10/22/21 10/22/2021: Patient is laying comfortably in the bed, appears somewhat restless. Patient states that he gets mixed up. Denies headache. 10/21/2021: Patient is laying comfortably in the bed. Offers no new complaints. No new focal symptoms. No headache. 10/20/2021: Patient is laying comfortably in the bed. Denies any pain, any headache. Still has tremors of the left hand. Telemetry monitoring showing couplets, triplets, PVC, PAC. No other arrhythmia. 10/19/2021: Patient initially seen with Dr. High yesterday. Please refer to her note for detail. Patient has presented with right-sided weakness. No other neurological symptoms. No visual symptoms. Patient is laying comfortably in the bed. Denies any headache, no numbness tingling or weakness. CT head showed no acute process. There is evidence of large old left cerebellar infarct as well as left temporal occipital infarct and a small right occipital infarct. Patient lives with his son and his and grandchildren. He uses cane most of the time. No walker. Objective - Vital Signs Vital signs: Vital Signs Temp 97.3 F L 10/22/21 12:00 Pulse 92 10/22/21 15:30 Resp 18 10/22/21 14:00 BP 96/64 10/22/21 12:00 Pulse Ox 97 10/22/21 12:00 Intake & Output 10/21/21 10/22/21 10/22/21 18:59 06:59 18:59 Intake Total 476 240 Output Total 450 100 1 Balance 26 -100 239 Weight 56.5 kg 56.5 kg Intake: Oral 476 240 Output: Urine 350 100 Condom 350 Post Void Residual 100 Stool 1 Other: Voiding Method Urinal Urinal Urinal Diaper Diaper Diaper # Voids 1 1 1 # Bowel Movements 1 1 - Exam Gen.: The patient is resting in the bed. Patient is in no acute distress. HEENT: Head is atraumatic, normocephalic. There is a tremor of the head, jaw and outstretched hands. There is no scleral icterus. Mucous membranes are moist. Neck: Without carotid bruits Heart: Regular rate and rhythm Extremities: Without edema Neurological examination Mental status: The patient is awake and alert. The patient's speech is clear. Patient has mild tremor of his voice as well. Patient can name and repeat very well. Cranial nerves: Pupils are equal at 4 mm and reactive. Visual lewis are full t o confrontation, with no neglect. Extraocular movements are intact. Facial sensation is intact. No obvious facial droop. Uvula and palate are midline. Shoulder shrug is symmetric. Tongue protrudes midline, with tremor. Motor: Patient's muscle strength is (right/left) deltoid 4+/5, biceps 5-/5, gmat instructor 5/5. Patient's right leg is weaker than the left. Patient has right-sided drift. Toe extension 2/5. Coordination: There is a significant component of postural and intention tremor of the bilateral upper extremities, left greater than right. There is mild tremor at rest of the left hand. There is no dysmetria with finger to nose testing. Deep tendon reflexes: 2-3+/4+ in the bilateral upper extremities. Bilateral patellar reflexes 3+/4+. Plantar responses are flexor bilaterally. Sensation: Grossly intact to light touch throughout. There is no extinction with double simultaneous stimulation. - Labs CBC & Chem 7: 10/21/21 06:18 10/22/21 07:48 Labs: Abnormal Lab Results - Last 24 Hours (Table) 10/22/21 Range/Units 07:48 Chloride 97 L (98-107) mmol/L Carbon Dioxide 33 H (22-30) mmol/L BUN 22 H (9-20) mg/dL Assessment and Plan Assessment: 1. Subacute bilateral scattered cerebral vascular accidents, most likely embolic phenomenon from cardiac source. 2. Right ICA occlusion, 3. Essential tremor. 4. Hypertension 5. Coronary artery disease. 6. Chronic tobacco use. Patient has smoked at least 1 pack per day since age 17, and was smoking up to 4 packs per day prior to quitting 1 month ago. Plan: 1. Patient has multiple small tiny areas of acute infarction involving bilateral hemispheric region, likely embolic. 2. Continue high-dose statin 3. Continue Eliquis. Patient switched from aspirin to Plavix for secondary stroke prevention. 4. Lipid panel with cholesterol 139, LDL 73, HDL 45 and triglycerides 98.3 on 10/19/2021. Continue high-dose statins Lipitor 80 mg daily. His hemoglobin A1c 5.5 on 08/28/2021 5. 2-D echocardiogram revealed normal left-ventricular size and left ventricular wall thickness. Moderate global hypokinesis of the left ventricle. EF is severely impaired, 25-30%. Left atrium is mildly dilated. Per cardiology patient underwent 2-D echo only bubble study. Unable to comment due to poor images. Patient to undergo MICHELLE in the morning. 6. CTA of the head and neck reported thromboses of the entire right ICA. There is significant stenosis of the distal right vertebral artery. The left vertebral artery is small and does not appear to be going to the basal artery. No intracranial hemodynamic stenosis. Infarcts noted in the left cerebellar hemisphere in the left temporal occipital and parietal lobes. There is approximate 50% stenosis of the region of the left ICA. 7. Carotid Doppler revealed occlusion of the right ICA. Nonvisualization of the left vertebral artery. Atheromatous plaquing left ICA without flow limiting stenosis. MRI of the brain revealed evidence of subacute bilateral scattered cerebral vascular accidents, consider embolic phenomenon. Findings are superimposed over chronic small vessel ischemic changes, left cerebellar hemisphere atrophy. Mild sinus disease. MRA of the brain revealed right ICA occlusion. Posterior circulation is diminutive, there is evidence of prior infarct involving the left cerebellar hemisphere. Basilar artery shows some more normal caliber centrally, limitations as described.
[2021-10-23] MEDS: IPRATROPIUM-ALBUTEROL 3 ML NEB INHALATION PRN (07:50)
--- NOTE | 2021-10-23 08:52 | PN ---
PROGRESS NOTE Mr. Mendoza is a 71-year-old male with known history of coronary artery disease, history of ischemic cardiomyopathy, prior history of stroke who presented with possible recurrent TIA. His MRI revealed subacute bilateral CVA raised possibility of embolic phenomenon. He underwent echocardiogram with a bubble study yesterday that was not diagnostic. He is feeling well today. He denies any chest pain. His breathing has been stable. He denies any dizziness or palpitations. He denies any nausea. He continues to be at this time on Eliquis 5 mg twice a day, Lipitor 80 mg daily, Plavix 75 mg daily, Lasix 40 mg twice a day, isosorbide mononitrate 30 mg daily, lisinopril 5 mg daily, spironolactone 25 mg daily. PHYSICAL EXAMINATION: Blood pressure 118/70 with a heart rate in the 80s. Lungs: Clear. Heart regular rate and rhythm. S1, S2. No S3, with systolic murmur. No diastolic murmur. No rub. Abdomen: Soft, nontender. Extremities: No edema. IMPRESSION: 1. History of coronary artery disease with ischemic cardiomyopathy. 2. Cerebrovascular accident. 3. Possible embolic transient ischemic attacks and embolic cerebrovascular accidents. 4. History of essential tremor. 5. Hypertension. 6. History of smoking. RECOMMENDATIONS: In view of the inability to achieve good imaging from the bubble study echocardiogram, I will obtain transesophageal echocardiogram today. The rational behind the procedures as well as risks and complications were discussed with the patient who is in full understanding and agreement. MMODL / IJN: [id number] /
[2021-10-23 08:58] VITALS: TEMP 97.9
[2021-10-23] MEDS ORDERED: SODIUM CHLORIDE 0.9% 500 ML 500 ML IV ONE (09:20)
[2021-10-23] MEDS: BENZOCAINE SPRAY 1 CAN TOPICAL ONE ×2 (09:26→09:45)
[2021-10-23 09:40] VITALS: RESP 16
[2021-10-23] MEDS ORDERED: MIDAZOLAM 2 MG/2 ML VIAL IVP ONE (09:43)
[2021-10-23] MEDS ORDERED: fentaNYL (PF) 50 MCG/ML 5 ML AMP IVP ONE (09:43)
[2021-10-23] MEDS ORDERED: METOPROLOL SUCCINATE (ER) 25 MG TAB.ER.24H PO SCH (10:15)
[2021-10-23] MEDS ORDERED: SODIUM CHLORIDE 0.9% 1,000 ML IV SCH (10:15)
[2021-10-23 11:25] VITALS: BP 135/64
--- NOTE | 2021-10-23 11:28 | P.DS ---
Providers Date of admission: 10/18/21 05:59 Attending physician: Ben Garcia MD Consults: 10/18/21 06:03 Consult Physician Routine Consulting Provider: Francoise High Consult Reason/Comments: TIA Do you want consulting provider notified?: Yes 10/18/21 11:20 Consult Physician Urgent Consulting Provider: Tavares Olivares Consult Reason/Comments: elevated troponin Do you want consulting provider notified?: Yes 10/18/21 21:55 Consult Physician Urgent Consulting Provider: Sriram Null Consult Reason/Comments: ICU transfer Do you want consulting provider notified?: Yes 10/20/21 18:58 Consult Physician Routine Consulting Provider: Damaso Weiner Consult Reason/Comments: Bilateral small ischemic strokes, consider MICHELLE. Do you want consulting provider notified?: Yes Primary care physician: [facility] Course: Diagnoses: Right-sided hemiparesis suspicious for acute stroke, improved. MRI bilateral subacute infarct, rule out embolic phenomena Carotid artery disease, thrombosis of the entire right internal carotid artery, with 50% stenosis on the left internal carotid artery Combined vascular and Alzheimer dementia Bradycardia improved with discontinuing of metoprolol Mild to moderate calories protein malnutrition History of coronary artery disease status post 3-4 vessel CABG History of CVA, multiple infarcts including large left cerebellar, bilateral occipital and left temporal infarcts COPD, no acute exacerbation History of DVT/PE on Eliquis Attention Hyperlipidemia History of and time Chronic back pain Anxiety and depression, not an active issue Hospital course: This is a pleasant 71 years old male with past medical history of Coronary Artery Disease status post 3-4 vessel CABG at [facility] , COPD, CVA/TIA, Deep Vein Thrombosis on Eliquis , Hyperlipidemia, Hypertension, Pulmonary Embolus, hand tremors, emphysema, back pain, anxiety and depression Patient was sent from his long-term at [facility] for Right sided hemiparesis. Patient is awake and alert he was in the hospital but is disoriented to time and person. Patient has been evaluated by several consultants including repeat photocomposing machine operator, neurologist and vascular surgery. Patient was found to have bilateral subacute infarct, embolic source was suspected workup has been negative for a source and eventually patient improved His right upper extremity is significantly improved close to baseline he still have some residual right lower extremity weakness. CT angiogram of the head and neck: Thrombosis of the entire right internal carotid arteries. There is significant stenosis of the distal right vertebral artery. CT of the brain: No acute process, however showing multiple old infarcts including 1 large cerebellar infarct, left posterior temporal, left occipital and right occipital infarct Vascular surgery evaluated the patient and recommended no surgical intervention CT angiogram of the head and neck: Thrombosis of the entire right internal carotid arteries. There is significant stenosis of the distal right vertebral artery. CT of the brain: No acute process, however showing multiple old infarcts including 1 large cerebellar infarct, left posterior temporal, left occipital an d right occipital infarct Chest x-ray: No acute change Emergency room he was started on aspirin 325 mg. He was on 81 mg long-term Also Eliquis was held from the emergency room for possible need of any surgical intervention MRI of the brain showing bilateral subacute scattered cerebral accident consider embolic phenomenon. MRA of the brain: Right internal carotid artery occlusion. Posterior ci rculation is diminutive, there is evidence of prior infarct involving the left cerebellar hemisphere.MRI of the brain showing bilateral subacute scattered cerebral accident consider embolic phenomenon. MRA of the brain: Right internal carotid artery occlusion. Posterior circulation is diminutive, there is evidence of prior infarct involving the left cerebellar hemisphere. Patient underwent echocardiogram with bubble study but it was of poor quality and nondiagnostic therefore MICHELLE was recommended which was done today which did not show significant intra-cardiac defect that needs surgical intervention, therefore repeat photocomposing machine operator recommended to continue with the same antiplatelet and anticoagulation and cleared him for discharge Also discussed the case with both cardiology and neurology teams and both cleared him to go to his [facility]CF today. Patient mentation is as baseline, he denies any other complaints, no chest pain or dyspnea. No change in urine or bowel habits. No fever. Patient was kept on Eliquis however his aspirin was switched to Plavix. Metoprolol was discontinued Patient was cleared for discharge by all other consultants Problems and management plan were discussed with the patient and he verbalized understanding and acceptance Patient was found stable and can be discharged home however he needs follow-up as an outpatient. Patient was instructed to follow up with PCP Dr. hoskins within one week and patient agrees Patient was instructed to follow up with repeat photocomposing machine operator Dr. North in one week, also with vascular surgery Dr. beatty in 2 weeks. Also patient was instructed to follow up with neurologist in [address] Cruz, Dr. Meneses are suggested Long-term prognosis is poor and patient might benefit from palliative consult as an outpatient, we refer this to his primary doctor physical exam Gen: patient is a patient is awake, alert, with some confusion to the surrounding and very forgetful (he could not remember yesterday conversation details) . None in distress. Comfortable CVS: S1-S2, RRR, no murmur Lungs: B/L CTA, no wheezing Abdomen: soft, no distention, no tenderness, positive bowel sounds Extremity: no leg edema or induration Neurological:Cranial nerves are grossly intact. Right lower extremity weakness 3/5, all other extremities weakness 4/5, meningeal signs are absent Time spent more than 35 minutes Patient Condition at Discharge: Serious Plan - Discharge Summary Discharge Rx Participant: No New Discharge Prescriptions: No Action Montelukast Sodium [Singulair] 10 mg PO HS Famotidine [Pepcid] 20 mg PO BID 30 Days #60 tab Spironolactone [Aldactone] 25 mg PO DAILY 30 Days #30 tab busPIRone HCl [Buspar] 10 mg PO BID Escitalopram [Lexapro] 5 mg PO DAILY Aspirin 81 mg PO DAILY Isosorbide Mononitrate ER [Imdur] 30 mg PO DAILY #30 tablet Metoprolol Tartrate [Lopressor] 25 mg PO BID #60 tab lisinopriL [Zestril] 5 mg PO DAILY Atorvastatin Calcium [Lipitor] 80 mg PO HS Albuterol Sulfate [Proair Hfa] 1 puff INHALATION RT-Q4H PRN PRN Reason: Shortness Of Breath Furosemide [Lasix] 40 mg PO BID@0900,1600 30 Days #60 tab Albuterol Nebulized [Ventolin Nebulized] 2.5 mg INHALATION RT-QID PRN #60 ml PRN Reason: Shortness Of Breath Or Wheezing Gabapentin [Neurontin] 200 mg PO BID #6 cap Nitroglycerin Sl Tabs [Nitrostat] 0.4 mg SUBLINGUAL Q5M PRN PRN Reason: Chest Pain LORazepam [Ativan] 0.5 mg PO Q8H PRN PRN Reason: Anxiety Thiamine [Vitamin B-1] 100 mg PO HS Apixaban [Eliquis] 5 mg PO BID tab Discharge Medication List Atorvastatin Calcium [Lipitor] 80 mg PO HS 06/10/21 [History] Montelukast Sodium [Singulair] 10 mg PO HS 06/10/21 [History] Albuterol Sulfate [Proair Hfa] 1 puff INHALATION RT-Q4H PRN 08/27/21 [History] Albuterol Nebulized [Ventolin Nebulized] 2.5 mg INHALATION RT-QID PRN #60 ml 09/01/21 [Rx] Famotidine [Pepcid] 20 mg PO BID 30 Days #60 tab 09/01/21 [Rx] Furosemide [Lasix] 40 mg PO BID@0900,1600 30 Days #60 tab 09/01/21 [Rx] Spironolactone [Aldactone] 25 mg PO DAILY 30 Days #30 tab 09/16/21 [Rx] Gabapentin [Neurontin] 200 mg PO BID #6 cap 09/17/21 [Rx] Aspirin 81 mg PO DAILY 10/13/21 [History] Escitalopram [Lexapro] 5 mg PO DAILY 10/13/21 [History] LORazepam [Ativan] 0.5 mg PO Q8H PRN 10/13/21 [History] Nitroglycerin Sl Tabs [Nitrostat] 0.4 mg SUBLINGUAL Q5M PRN 10/13/21 [History] Thiamine [Vitamin B-1] 100 mg PO HS 10/13/21 [History] busPIRone HCl [Buspar] 10 mg PO BID 10/13/21 [History] Apixaban [Eliquis] 5 mg PO BID tab 10/14/21 [Rx] Isosorbide Mononitrate ER [Imdur] 30 mg PO DAILY #30 tablet 10/14/21 [Rx] Metoprolol Tartrate [Lopressor] 25 mg PO BID #60 tab 10/14/21 [Rx] lisinopriL [Zestril] 5 mg PO DAILY 10/18/21 [History] Follow up Appointment(s)/Referral(s): Rj Beatty DO [STAFF PHYSICIAN] - 2 Weeks Donita Darden MD [Primary Care Provider] - 1-2 days Nannette North MD [STAFF PHYSICIAN] - 1 Week
[2021-10-23] MEDS: GABAPENTIN 100 MG CAP PO SCH (12:15)
[2021-10-23] MEDS: APIXABAN 5 MG TAB PO SCH (12:15)
[2021-10-23] MEDS: DOCUSATE 100 MG CAP PO SCH (12:15)
[2021-10-23] MEDS: lisinopriL 5 MG TAB PO SCH (12:16)
[2021-10-23] MEDS: FUROSEMIDE 40 MG TAB PO SCH (12:16)
[2021-10-23] MEDS: busPIRone HCl 10 MG TAB PO SCH (12:16)
[2021-10-23] MEDS: THIAMINE 100 MG TAB PO SCH (12:16)
[2021-10-23] MEDS: CLOPIDOGREL 75 MG TAB PO SCH (12:16)
[2021-10-23] MEDS: ISOSORBIDE MONONITRATE ER 30 MG TAB.ER.24H PO SCH (12:16)
[2021-10-23] MEDS: FAMOTIDINE 20 MG TAB PO SCH (12:16)
[2021-10-23] MEDS: SPIRONOLACTONE 25 MG TAB PO SCH (12:16)
[2021-10-23] MEDS: SODIUM CHLORIDE 0.9% 1,000 ML IV SCH (12:17)
[2021-10-23] MEDS: ESCITALOPRAM 5 MG TAB PO SCH (12:17)
[2021-10-23] MEDS: ALBUTEROL NEBULIZED 2.5 MG/3 ML INHALATION PRN (12:24)
[2021-10-23 12:38] VITALS: PULSE 70
--- NOTE | 2021-10-23 13:13 | ECHOT ---
TRANSESOPHAGEAL ECHOCARDIOGRAM TRANSESOPHAGEAL ECHOCARDIOGRAM: INDICATION: Evaluation of intracardiac thrombus. PROCEDURE: After explaining the procedure to the patient, its risks and the complications, his blood pressure, heart rate, O2 saturation was monitored. The throat was sprayed with Cetacaine. He received 1 mg intravenous Versed, 50 mcg intravenous fentanyl. The probe was introduced into the esophagus without difficulty. Images were obtained. The probe was removed. There was no immediate complication. FINDINGS: Left atrial size is dilated. Left atrial appendage is normal. Left ventricular size is normal. There is inferoseptal and inferior wall hypokinesis. The overall ejection estimated ejection fraction 40 to 45%. The aortic valve revealed fibrocalcific change of the aortic cusp with preserved opening. Mild thickening of the mitral valve leaflets was noted. No pericardial effusion was noted. Descending thoracic aorta revealed mild atherosclerotic changes. Contrast bubble study revealed late shunting with Valsalva maneuver. Doppler pulse wave and color Doppler obtained, revealed mild mitral and tricuspid regurgitation. There was no shunting by color Doppler study. CONCLUSION: 1. Dilated left atrium with normal appearance left atrial appendage. 2. Normal left ventricular size with moderately impaired left ventricular systolic function with segmental wall motion abnormality. 3. Aortic sclerosis with no evident stenosis. 4. Mild mitral and tricuspid regurgitation. No evidence of pulmonary hypertension. 5. Late shunting across the interatrial septum, minimal. 6. Mild atherosclerotic changes of the descending thoracic aorta. 7. No pericardial effusion. MMODL / IJN: [id number] /
--- NOTE | 2021-10-23 17:45 | P.PN ---
Subjective Progress Note Date: 10/23/21 10/23/2021: Patient is laying comfortably in the bed. Appears more alert and awake. Patient denies headache today. States feels confused. 10/22/2021: Patient is laying comfortably in the bed, appears somewhat restless. Patient states that he gets mixed up. Denies headache. 10/21/2021: Patient is laying comfortably in the bed. Offers no new complaints. No new focal symptoms. No headache. 10/20/2021: Patient is laying comfortably in the bed. Denies any pain, any headache. Still has tremors of the left hand. Telemetry monitoring showing couplets, triplets, PVC, PAC. No other arrhythmia. 10/19/2021: Patient initially seen with Dr. High yesterday. Please refer to her note for detail. Patient has presented with right-sided weakness. No other neurological symptoms. No visual symptoms. Patient is laying comfortably in the bed. Denies any headache, no numbness tingling or weakness. CT head showed no acute process. There is evidence of large old left cerebellar infarct as well as left temporal occipital infarct and a small right occipital infarct. Patient lives with his son and his and grandchildren. He uses cane most of the time. No walker. Objective - Vital Signs Vital signs: Vital Signs Temp 97.9 F 10/23/21 08:00 Pulse 70 10/23/21 12:38 Resp 16 10/23/21 14:00 BP 135/64 10/23/21 11:03 Pulse Ox 95 10/23/21 09:55 Intake & Output 10/22/21 10/23/21 10/23/21 18:59 06:59 18:59 Intake Total 460 290 Output Total 1 120 Balance 459 170 Weight 56.5 kg Intake: IV 50 Oral 460 240 Output: Urine 120 Stool 1 Other: Voiding Method Urinal Urinal Urinal Diaper Diaper Diaper # Voids 1 1 # Bowel Movements 1 - Exam Gen.: The patient is resting in the bed. Patient is in no acute distress. HEENT: Head is atraumatic, normocephalic. There is a tremor of the head, jaw and outstretched hands. There is no scleral icterus. Mucous membranes are moist. Neck: Without carotid bruits Heart: Regular rate and rhythm Extremities: Without edema Neurological examination Mental status: The patient is awake and alert. The patient's speech is clear. Patient has mild tremor of his voice as well. Patient can name and repeat very well. Cranial nerves: Pupils are equal at 4 mm and reactive. Visual lewis are full to confrontation, with no neglect. Extraocular movements are intact. Facial sensation is intact. No obvious facial droop. Uvula and palate are midline. Shoulder shrug is symmetric. Tongue protrudes midline, with tremor. Motor: Patient has right pronator drift. Patient's muscle strength is (right/left) deltoid 5-/5, biceps 5/5, triceps 5/5, health center associate 5/5. Ankle dorsiflexion 4/5, hip flexion 4/5. Toe extension 2/5. Coordination: The patient has moderate to severe postural tremor. Moderate to severe tremor for [id number] testing, left more than right. Mild tremor at rest of left hand. Deep tendon reflexes: 2-3+/4+ in the bilateral upper extremities. Bilateral patellar reflexes 3+/4+. Plantar responses are flexor bilaterally. Sensation: Grossly intact to light touch throughout. There is no extinction with double simultaneous stimulation. - Labs CBC & Chem 7: 10/21/21 06:18 10/22/21 07:48 Assessment and Plan Assessment: 1. Subacute bilateral scattered cerebral vascular accidents, most likely embolic phenomenon from cardiac source. Patient has mild right hemiparesis. 2. Right ICA occlusion, 3. Essential tremor. 4. Hypertension 5. Coronary artery disease. 6. Chronic tobacco use. Patient has smoked at least 1 pack per day since age 17, and was smoking up to 4 packs per day prior to quitting 1 month ago. Plan: 1. Patient has multiple small tiny areas of acute infarction involving bilateral hemispheric region, likely embolic. 2. Continue high-dose statin 3. Continue Eliquis. Patient switched from aspirin to Plavix for secondary st roke prevention. 4. Lipid panel with cholesterol 139, LDL 73, HDL 45 and triglycerides 98.3 on 10/19/2021. Continue high-dose statins Lipitor 80 mg daily. His hemoglobin A1c 5.5 on 08/28/2021 5. 2-D echocardiogram revealed normal left-ventricular size and left ventricular wall thickness. Moderate global hypokinesis of the left ventricle. EF is severely impaired, 25-30%. Left atrium is mildly dilated. Per cardiology patient underwent 2-D echo only bubble study. Unable to comment due to poor images. 6. MICHELLE showed dilated left atrium with normal appearance of the left atrial appendage. Normal left-ventricular size with moderately impaired left v entricular systolic function with segmental wall motion abnormality. Aortic sclerosis with no evidence stenosis. MR and TR. Late shunting across the interatrial septum, minimal. Discussed with Dr. Smallwood. PFO is too small, no indication for closure at this time. Continue medical management. 7. CTA of the head and neck reported thromboses of the entire right ICA. There is significant stenosis of the distal right vertebral artery. The left vertebral artery is small and does not appear to be going to the basal artery. No intracranial hemodynamic stenosis. Infarcts noted in the left cerebellar hemisphere in the left temporal occipital and parietal lobes. There is approxim ate 50% stenosis of the region of the left ICA. 8. Carotid Doppler revealed occlusion of the right ICA. Nonvisualization of the left vertebral artery. Atheromatous plaquing left ICA without flow limiting stenosis. 9. Blood pressure is well controlled. Neurologically clear for discharge. Follow up with neurologist as outpatient after MRI of the brain revealed evidence of subacute bilateral scattered cerebral vascular accidents, consider embolic phenomenon. Findings are superimposed over chronic small vessel ischemic changes, left cerebellar hemisphere atrophy. Mild sinus disease. MRA of the brain revealed right ICA occlusion. Posterior circulation is diminutive, there is evidence of prior infarct involving the left cerebellar hem isphere. Basilar artery shows some more normal caliber centrally, limitations as described.
== END 2021-10-23 16:12 | DRG 65 ==
LOC: EC 02:14 → EEVIPCON 05:59 → 3SCARD 05:59 → 2SICU 22:10 → 3SCARD 10-19 16:21
PROVIDERS: ADMIT Internal Medicine; ATTEND Internal Medicine
PROC: B24BZZ4 Ultrasonography of Heart with Aorta, Transesophageal (ICD-10-PCS; principal; 2021-10-23 07:30)
DX: I63.9 Cerebral infarction, unspecified (principal); G81.91 Hemiplegia, unspecified affecting right dominant side; E44.1 Mild protein-calorie malnutrition; Z68.1 Body mass index [BMI] 19.9 or less, adult; I27.82 Chronic pulmonary embolism; F01.50 Vascular dementia, unspecified severity, without behavioral disturbance, psychotic disturbance, mood disturbance, and anxiety; G30.9 Alzheimer's disease, unspecified; I95.9 Hypotension, unspecified; I48.0 Paroxysmal atrial fibrillation; F02.80 Dementia in other diseases classified elsewhere, unspecified severity, without behavioral disturbance, psychotic disturbance, mood disturbance, and anxiety; J43.9 Emphysema, unspecified; Z20.822 Contact with and (suspected) exposure to COVID-19; R47.01 Aphasia; I65.01 Occlusion and stenosis of right vertebral artery; I65.23 Occlusion and stenosis of bilateral carotid arteries; I25.5 Ischemic cardiomyopathy; G25.0 Essential tremor; I44.7 Left bundle-branch block, unspecified; R00.1 Bradycardia, unspecified; I10 Essential (primary) hypertension; I25.10 Atherosclerotic heart disease of native coronary artery without angina pectoris; I08.1 Rheumatic disorders of both mitral and tricuspid valves; E78.5 Hyperlipidemia, unspecified; I25.2 Old myocardial infarction; G89.29 Other chronic pain; F41.9 Anxiety disorder, unspecified; F32.A Depression, unspecified; M54.9 Dorsalgia, unspecified; F17.210 Nicotine dependence, cigarettes, uncomplicated; R77.8 Other specified abnormalities of plasma proteins; Z79.01 Long term (current) use of anticoagulants; Z79.82 Long term (current) use of aspirin; Z79.899 Other long term (current) drug therapy; Z95.1 Presence of aortocoronary bypass graft; Z90.89 Acquired absence of other organs; Z87.19 Personal history of other diseases of the digestive system; Z86.718 Personal history of other venous thrombosis and embolism; Z86.73 Personal history of transient ischemic attack (TIA), and cerebral infarction without residual deficits; Z87.01 Personal history of pneumonia (recurrent); Z98.890 Other specified postprocedural states; Z71.3 Dietary counseling and surveillance; Z82.3 Family history of stroke; Z83.2 Family history of diseases of the blood and blood-forming organs and certain disorders involving the immune mechanism; Z82.49 Family history of ischemic heart disease and other diseases of the circulatory system
CPT/HCPCS: 36415; 70450; 70496; 70498; 70544; 70551; 71045; 80048; 80053; 80061; 81001; 83735; 84132; 84443; 84484; 85025; 85610; 85730; 87635; 93005; 93308; 93312; 93320; 93325; 93880; 94640; 94760; 99285